=== PATIENT | female | born 1990 | race Caucasian/White ===

== ENCOUNTER 2016-07-15 18:27 | Inpatient (IN) | payer OTHER, MEDICAID ==
[~2016-07-15] VITALS: Ht 157.5 cm; Wt 62.1 kg
[~2016-07-15 18:27] MED LIST: BUPR1FIL3 SL; CEPH-512 PO; GABA300C PO; HYDR-3605 PO; LAMO100T PO; MTH4T PO; NICO1PAT5 TOPICAL; NPR500T PO; ROPI1TAB3 PO
--- NOTE | 2016-07-15 18:28 | ED.REPORT ---
HPI-Chest Pain Under 40 Date of Service Jul 15, 2016 ED Provider: History of Present Illness: sick for a week started with feeling tired. not significant nausea or vomiting. no primary care. ibuprofen unknown time or dose not taking suboxone. last use this am heroin injection, denies cocaine. has no place to stay. reports breathing issues. Nursing Notes Stated Complaint: CHEST PAIN,SOB Chief Complaint: Chest Pain Nursing Notes Reviewed: Yes Allergies: Coded Allergies: No Known Allergies (Verified Allergy, Unknown, 03/06/16) Scheduled Buprenorphine HCl/Naloxone HCl (Suboxone 8 mg-2 mg Sl Film) 1 Each Film 1 EACH SL DAILY Cephalexin (Keflex) 500 Mg Capsule 500 MG PO QID Gabapentin (Neurontin) 300 Mg Capsule 600 MG PO TID Lamotrigine (Lamictal) 100 Mg Tablet 200 MG PO BID Methylprednisolone (Medrol) 21 Tab/Pkg Tablet 1 TAB PO UD Follow package instructions Nicotine 14 mg/24 hr Patch (Nicotine 14 mg/24 hr Patch) 1 Each Patch.td24 1 PATCH TOPICAL Q24H Ropinirole (Ropinirole) 1 Mg Tablet 1 MG PO HS Scheduled PRN HydrOXYzine HCl (HydrOXYzine HCl) 10 Mg Tablet 25 MG PO TID PRN PRN For Itching Naproxen (Naproxen) 500 Mg Tab 500 MG PO BID PRN PRN For Pain General Time Seen by MD: 18:28 Chief Complaint Chest pain, Shortness of breath Hx Obtained From: Patient Sudden in Onset?: No Severity: Current: Pain level 10 out of 10 Risk Factors )( CAD Risk Stratification Amphetamine Risk factors reviewed Past Medical History Past Medical History Notes: P:1, RH negative Past Medical History Seizures Reports: Asthma Past Surgical History none reported Family History noncontributory Smoking History Current Every Day Smoker Social History last used heroin this am 07/15/2016 Alcohol Use: Denies alcohol use Drug Use: IV drugs Other Social History: Local resident Occupation homeless at present no work or school at this time 07/15/2016 Ambulatory Status Independent Review of Systems Basic Review of Systems Eyes: Vision NL, No discharge ENT: Hearing NL, No pain, No nasal congestion, No pharyngeal pain : No dysuria, No frequency Hematologic: No bleeding, No bruising Endocrine: No cold intolerance, No heat intolerance, No weight gain, No weight loss Allergy / Immune: No allergy Physical Exam Initial Vital Signs Vital Signs (First) Date Time Temp Pulse Resp B/P Pulse Ox O2 Delivery O2 Flow Rate FiO2 07/15/16 18:29 38.4 132 24 106/55 100 Room Air Initial VS: Reviewed, Vital signs abnormal Head / Eyes: Atraumatic, Normocephalic, PERRL ENT: Mucous membranes moist, Conjunctiva normal, No scleral icterus Neck: Supple, Non-tender, Full range of motion Abdomen / GI: Soft, Non-tender, No guarding, No rebound, No distention Back: No CVA tenderness Lymphatic: No lymphadenopathy Extremities: Vascular intact, Neuro intact, No swelling, No tenderness Skin: Warm, Dry, No cyanosis Neurologic: Alert, Oriented, Nonfocal Psychiatric: Mood/affect normal, Behavior normal, Normal thought content General/Constitutional: Awake Distress / Hydration: Positive: Distress moderate hypersensitive to light touch Diminished Breath Sounds: Positive: Decreased bilateral (at bases) no wheezing Heart Rate / Rhythm: Positive: Tachycardia Interpretation & Diagnostics Lab Results Interpretation Result Diagram: 07/15/16195607/15/161956 Test 07/15/16 19:57 07/15/16 21:01 White Blood Count 18.7th/mm3 (3.8-10.1) Red Blood Count 3.51mil/mm3 (3.90-5.20) Hemoglobin 10.1g/dL (12.0-15.6) Hematocrit 30.7% (35.0-46.0) Mean Corpuscular Volume 87.5fL (81-100) Mean Corpuscular Hemoglobin 28.8pg (27.0-35.0) Mean Corpuscular Hemoglobin Concent 32.9% (32.0-37.0) Red Cell Distribution Width 12.7% (12.3-15.4) Platelet Count 134bil/L (150-400) Neutrophils (%) (Auto) 82.9% (40-74) Lymphocytes (%) (Auto) 7.9% (14-46) Monocytes (%) (Auto) 6.3% (4-12) Eosinophils (%) (Auto) 0% (0-5) Basophils (%) (Auto) 0.2% (0-3) D-Dimer 11.5mg/L (<0.50) Sodium Level 128mEq/L (134-144) Potassium Level 4.1mEq/L (3.5-5.2) Chloride Level 90mEq/L (97-108) Carbon Dioxide Level 23mmol/L (18-29) Blood Urea Nitrogen 36mg/dL (6-20) Creatinine 2.11mg/dL (0.57-1.00) Estimat Glomerular Filtration Rate 42mL/min (>59) Glucose Level 102mg/dL (60-99) Lactic Acid Level 1.5mmol/L (0.4-2.0) Calcium Level 8.5mg/dL (8.5-10.1) Magnesium Level 2.1mg/dL (1.6-2.6) Total Bilirubin 0.6mg/dL (0.0-1.2) Aspartate Amino Transf (AST/SGOT) 32U/L (0-50) Alanine Aminotransferase (ALT/SGPT) 15U/L (0-32) Alkaline Phosphatase 108U/L (25-150) Total Protein 7.3g/dL (6.4-8.4) Albumin 2.6g/dL (3.4-5.0) Urine Color Yellow (YELLOW) Urine Appearance Cloudy (CLEAR,HAZY) Urine pH 5.5 (5.0-8.0) Urine Specific Sylvester 1.015 (1.003-1.035) Urine Protein 30mg/dL (NEG,TRACE) Urine Glucose (UA) Negativemg/dL (NEGATIVE) Urine Ketones Negativemg/dL (NEGATIVE) Urine Occult Blood Large (NEGATIVE) Urine Nitrite Negative (NEGATIVE) Urine Bilirubin Negative (NEGATIVE) Urine Urobilinogen Normalmg/dL (NORMAL) Urine Leukocyte Esterase Large (NEGATIVE) Urine RBC 3-10/hpf (0-2) Urine WBC 6-10/hpf (0-5) Urine Epithelial Cells None/hpf (NONE-MOD) Urine Crystals None seen (NONE SEEN) Urine Bacteria Few/hpf (NONE-FEW) Urine Hyaline Casts None/lpf (NONE) Urine Granular Casts None seen (NONE SEEN) Urine Waxy Casts None seen (NONE SEEN) Urine Red Blood Cell Casts None seen (NONE SEEN) Urine White Blood Cell Casts None seen (NONE SEEN) Urine Mucus Present (None Seen) Urine Trichomonas None seen (NONE SEEN) Urine Yeast None (NONE SEEN) Urinalysis Comment None Urine Culture Reflexed Indicated Lab Results Interpretation: u tox positive for opiates, meth and amph. Re-Eval/Medical Decision Med Decision/Clinical Course discussed with Dr. Kirkland. Will need IV, fluids, antiviotics and admission. Patient agrees to stay Discharge & Departure Primary Impression: Pneumonia Additional Impression: Urinary tract infection Hematuria presence: with hematuria Disposition: ADMITTED TO HOSPITAL Referrals: Taco Flores MD (PCP) EDSupervising Provider for APC: Kwame Kirkland MD copies to: Taco Flores MD, Sue ARNP Jul 15, 2016 18:28
[2016-07-15 18:29] VITALS: BP 106/55; PULSE 132; RESP 24; O2SAT 100
[2016-07-15] MEDS ORDERED: 0.9% Sodium Chloride 1,000 ML IV ONE (18:40)
--- NOTE | 2016-07-15 19:51 | DRSVH ---
PROCEDURE: X-RAY CHEST, TWO VIEWS ([id number]) INDICATIONS: fever sob TECHNIQUE: 2 views of the chest were acquired. COMPARISON: [facility], CR, XR CHEST 1VW (PORTABLE), 03/06/2016, 13:22. FINDINGS: Surgical changes and devices: None. Lungs and pleura: Bilateral lower lobe infiltrates consistent with pneumonia. No pleural effusions or pneumothorax. Mediastinum: Mediastinal contours are normal. Heart size is normal. Bones and chest wall: No suspicious bony abnormalities. Soft tissues appear unremarkable. IMPRESSION: Bilateral lower lobe pneumonia. Dictated by: Sharon Ospina M.D. on 07/15/2016 at 19:50 Approved by: Sharon Ospina M.D. on 07/15/2016 at 19:50
[2016-07-15] MEDS ORDERED: HYDROcodone-APAP 5-325 mg Tablet PO ONE (20:10)
[2016-07-15 20:28] LABS: BASOPHILS % (AUTO) 0.2 % (0-3)
[2016-07-15 20:31] LABS: EOSINOPHILS % (AUTO) 0 % (0-5); MONOCYTES % (AUTO) 6.3 % (4-12); Mean Corpuscular Hemoglobin 28.8 pg (27.0-35.0); Mean Corpuscular Volume 87.5 fL (81-100); NEUTROPHILS % (AUTO) 82.9 % (40-74); Platelet Count 134 bil/L (150-400)
[2016-07-15 20:37] LABS: Magnesium 2.1 mg/dL (1.6-2.6)
[2016-07-15] MEDS ORDERED: 0.9% Sodium Chloride 1,000 ML IV STA (21:16)
[2016-07-15 21:18] LABS: APPEARANCE,URINE CLOUDY (CLEAR,HAZY); COLOR,URINE YELLOW (YELLOW)
[2016-07-15 21:19] LABS: OCCULT BLOOD,URINE LARGE (NEGATIVE); PH,URINE 5.5 (5.0-8.0); UROBILINOGEN,URINE NORMAL (NORMAL)
[2016-07-15] MEDS ORDERED: cefTRIAXone Inj 1,000 MG in IV Premix 1 EACH IV ONE (21:20)
[2016-07-15 22:38] VITALS: BP_SYST 96; BP_DIAS 36; BP_DIAS 39; PULSE 104; RESP 20; O2SAT 96
[2016-07-15 22:56] VITALS: BP 95/48; PULSE 102; RESP 20; O2SAT 97
[2016-07-15 23:22] VITALS: BP 91/44; PULSE 101; RESP 20; O2SAT 96
[2016-07-15] MEDS ORDERED: Alum-Mag Hydrox-Simeth 30 mL Suspension PO PRN (23:30)
[2016-07-15] MEDS ORDERED: Polyethylene Glycol (PEG) 17 Gm Powder PO PRN (23:30)
[2016-07-15 23:59] VITALS: BP 91/44; PULSE 101; RESP 20; O2SAT 96
[2016-07-16] VITALS (10 sets, daily range): BP systolic 75–115; BP diastolic 45–82; PULSE 73–151; RESP 16–30; O2SAT 95–100
[2016-07-16] MEDS ORDERED: 0.9% Sodium Chloride 1,000 ML IV ONE ×2 (00:30→03:40)
[2016-07-16] MEDS: Heparin 5,000 Unit/mL Inj SUBQ SCH ×4 (00:39→23:47)
--- NOTE | 2016-07-16 00:58 | NUR ---
Admit Note Pt. arrived on floor at 0005. Pt. was diaphoretic, and moaning in pain during transfer from stretcher to bed. Pt. has a right EJ peripheral IV that is intact and patent. Pt. refused full skin assessment. Belongings locked in closet, because of hx of IV drug abuse. Pt. is being noncompliant with admit questions so far. Will try to continue with admit. Pt's BP was 84/51 upon arrival. paged. MD ordered a IV fluid bolus, which is being given right now. Also, talked with resident MD, and asked for something for pain. As pt. was complaining of pain in back and abdomen area. MD ordered PO tylenol. Will continue to monitor. Addendum: 07/16/16 at 0102 by STEVE LUCAS RN Tele also placed on pt. during arrival.
--- NOTE | 2016-07-16 01:04 | PCM.HPMED ---
Subjective Date of Service Jul 16, 2016 Primary Provider: Admitting Physician: Ese Amanda MD Primary Care Physician: Taco Flores MD Attending Physician: Ese Amanda MD Chief Complaint: Shortness of breath, chest pain History of Present Illness: Patient is a 25-year-old IV heroin and meth using female presenting with shortness of breath and chest pain. She is a vague historian and currently not in the mood to interact or elaborate, but she reports onset of shortness of breath about two days ago with accompanying chest pain. She reports the chest pain is noticeable with breathing and involves her left shoulder. At time of visit, she reports her chest pain is improved. She currently is very fatigued but otherwise denies chills, cough, nausea, emesis, abdominal pain, dysuria. She reports actively using IV heroin and occasionally IV meth. She reports last using IV heroin some time this morning. She is currently homeless and staying at homes of various friends. In the ED, vitals: 38.4C, RR 102, RR 20 satting 97% on room air, BP 95/48. Notable labs: WBC 18.7, Na 128, BUN 36, creatinine 2.11. D-dimer 11.5. UA with large leukocyte esterase, WBC 6-10 and few bacteria. Chest x-ray with bilateral lower lobe infiltrates. Urine toxicology screen positive for meth, amphetamines and opiates. Patient received 2L NS in the ED and started on ceftriaxone and azithromycin. Review of Systems: A comprehensive review of systems was conducted with the patient and found to be negative except as above in the History of Present Illness. Allergies Coded Allergies: sulfamethoxazole (Verified Allergy, Intermediate, 07/16/16) serum sickness with arthritis trimethoprim (Verified Allergy, Intermediate, 07/16/16) serum sickness with arthritis No Known Allergies (Verified Allergy, Unknown, 03/06/16) Home Medications None reported PMH Seizures Asthma IV substance abuse (heroin and meth) History of recurrent UTIs and pyelonephritis . Surgical History None reported Family History Mother is alive and well Father at [id number] from lung cancer Social History Occupation: Unemployed Hx Alcohol Use: No Hx Substance Use: Yes (heroin, meth, marijuana) Smoking Status: Current Every Day Smoker Living Arrangement: Homeless Exam Vital Signs Vital Sign - Last Date Time Temp Pulse Resp B/P Pulse Ox O2 Delivery O2 Flow Rate FiO2 07/16/16 00:11 36.2 88 18 84/51 99 Room Air Intake and Output 07/15/16 07/15/16 07/16/16 Cumulative From/Thru 15:00 23:00 07:00 07/15/16 18:29 - 07/16/16 00:13 Intake Total 2000 ml 2000 ml Balance 2000 ml 2000 ml Intake IV Total 2000 ml 2000 ml # Voids 1 1 Exam General: Mild distress, well-developed, well-nourished, not interactive, diaphoretic HEENT: Normocephalic, atraumatic. External ears without defect. Pupils equal, round, and reactive to light and accommodation. Anicteric sclerae, moist conjunctivae, and no lid lag. Oropharynx moist mucosa. Neck: Right external jugular IV. Supple. No jugular venous distension. No bruits. No lymphadenopathy or thyromegaly. Cardiovascular: Regular rate and rhythm with no murmurs, rubs, or gallops appreciated Pulmonary: Clear anteriorly. Unable to auscultate posterior given pain from movement at site of external jugular IV. Normal respiratory effort with no use of accessory muscles. Abdomen: Bowel tones present. Soft, nontender, nondistended. No hepatosplenomegaly or masses appreciated. Extremities: No clubbing, cyanosis, edema, or lymphadenopathy appreciated. Skin: Perspiring. Multiple sites of ecchymosis on arms likely from IVDU. Puncture sites at several spots on her feet. Neurological: Cranial nerves grossly intact. Psychiatric: Alert and oriented to person, place, and time. Lab and Diagnostics Result Diagram: 07/15/16195607/15/161956 X-Rays, CTs and MRIs Date of Service: 07/15/161839 PROCEDURE: X-RAY CHEST, TWO VIEWS ([id number]) INDICATIONS: fever sob TECHNIQUE: 2 views of the chest were acquired. COMPARISON: [facility], CR, XR CHEST 1VW (PORTABLE), 03/06/2016, 13: 22. FINDINGS: Surgical changes and devices: None. Lungs and pleura: Bilateral lower lobe infiltrates consistent with pneumonia. No pleural effusions or pneumothorax. Mediastinum: Mediastinal contours are normal. Heart size is normal. Bones and chest wall: No suspicious bony abnormalities. Soft tissues appear unremarkable. IMPRESSION: Bilateral lower lobe pneumonia. Dictated by: Sharon Ospina M.D. on 07/15/2016 at 19:50 Approved by: Sharon Ospina M.D. on 07/15/2016 at 19:50 Assessment & Plan Patient is a 25-year-old IV heroin and meth using female presenting with shortness of breath and chest pain and admitted for severe sepsis with pneumonia and urinary tract infection: 1. Severe sepsis. Present on admission. Active -Meets criteria with temp (38.4), HR (132) with organ dysfunction as evidence by creatinine 2.11 and MAP<65. Likely pulmonary or source, possible bacteremia given IVDU -Patient received 2L NS in ED. Ordered another liter NS. Maintain MAP>60 -Pending: blood cultures, MRSA screen -Lactic acid 1.5 -Ceftriaxone and azithromycin in ED. Will continue ceftriaxone and start linezolid for MRSA coverage given patient's renal function. Narrow antibiotic spectrum with culture results 2. Bibasilar pneumonia. Acute. Present on admission. Active -Chest x-ray suggestive of bilateral lower lobe pneumonia -Pending studies: procalcitonin, Legionella and strep pneumo ur Ag, Respiratory virus PCR -Antibiotics as above 3. Acute kidney injury. Present on admission. Active -Creatinine 2.11 -Likely secondary to poor oral intake, ischemic ATN -Patient undergoing fluid resuscitation -Avoid nephrotoxins -Continue to monitor with CMP 4. Urinary tract infection. Acute. Present on admission. Active -UA with leukocyte esterase, pyuria, bacteria -Antibiotics as above 5. Elevated D-dimer. Present on admission. Active -D dimer 11.5. Possibly elevated since its an acute phase reactant -Patient satting high 90s on room air; low suspicion of PE -Unable to perform CT chest angio given renal function; consider VQ scan or duplex of lower extremities 6. Substance abuse. Chronic. Present on admission. Active -Currently uses IV meth and heroin. Has been on Suboxone in the past -Social work referral Patient Status: Patient is admitted under inpatient status with expected length of stay greater than 2 midnights due to severity of presenting symptoms, risk of adverse event, and complexity of treatment plan. GI Prophylaxis: Not indicated VTE Prophylaxis: Sub-Q Heparin (Unfractionated) Resuscitation Status: CPR: Attempt Resuscitation Attending Statement Pt seen and examined by myself and agree with above plan. Mazin Rivera DO Jul 16, 2016 01:04 Ese Amanda MD Jul 17, 2016 06:05
[2016-07-16] MEDS: HYDROcodone-APAP 5-325 mg Tablet PO PRN (01:50)
[2016-07-16] MEDS ORDERED: Linezolid Inj 600 MG in IV Premix 1 EACH IV SCH (04:40)
[2016-07-16] MEDS: Norepineph 8,000 mCg/250 mL NS 8,000 MCG in IV Premix 1 EACH IV SCH (06:06)
--- NOTE | 2016-07-16 06:15 | NUR ---
Pt's Status Pt's BP still has not risen since 2 liters of IV fluids boluses given. MD aware. MD has ordered pt. to go up to CCU where she can possibly get pressers. Pt. is still diaphoretic, and a little bit flushed in face. Will continue to monitor until report given.
--- NOTE | 2016-07-16 06:45 | NUR ---
Transfer to CCU Pt. is off of this floor, and has been transferred to CCU nurse. Bedside report given to Lyly SESAY. Belongings taken with, and relocked in closet in that room.
--- NOTE | 2016-07-16 07:00 | NUR ---
Pt transferred to CCU Pt transferred to CCU from [facility] for hypotension. A&O x 3. Sensitive to any touch at all. c/o 10/10 L shoulder/chest pain and will cry out with minimal touch. Tele SR 80s. SpO2 mid 90s on RA. Per report, pt has received 5L fluids in ER/OSC for BP management with no avail. BP on admit 80s/48s. Pt denies SOB, n/v/d or abdominal pain. Oriented to room and call light. Pt tucked in to room and settled for next shift.
[2016-07-16] MEDS ORDERED: Sodium Chloride LOK Flush 10 mL Syringe IVFLUSH PRN ×2 (07:55)
[2016-07-16 08:05] LABS: BASOPHILS % (AUTO) 0.5 % (0-3); EOSINOPHILS % (AUTO) 0.3 % (0-5); MONOCYTES % (AUTO) 6.2 % (4-12); Mean Corpuscular Hemoglobin 28.6 pg (27.0-35.0); Mean Corpuscular Volume 87.3 fL (81-100); NEUTROPHILS % (AUTO) 79.7 % (40-74); Platelet Count 95 bil/L (150-400)
[2016-07-16] MEDS ORDERED: LAMO200T2 PO (09:24)
[2016-07-16] MEDS ORDERED: HYDR-656 PO ×2 (09:27)
[2016-07-16] MEDS ORDERED: ONDA-53 PO (09:27)
[2016-07-16] MEDS ORDERED: CLON0.3T PO (09:27)
[2016-07-16] MEDS: 0.9% Sodium Chloride 1,000 ML IV SCH ×7 (09:55→21:15)
--- NOTE | 2016-07-16 10:25 | NUR ---
NUTRITION ASSESSMENT: ASSESS:25 YO female admitted with shortness of breath, chest pain, PRISCILA, pneumonia, and UTI. She reports the chest pain is noticeable with breathing and involves her left shoulder. She reports actively using IV heroin and occasionally IV meth. She is currently homeless and staying at homes of various friends. Of note, the patient has lost 8.58 kg x 4 months, 1 week = 12.58% = severe protein calorie malnutrition. Her social issues are significant. PMHx:Homelessness, IV heroin and meth use, seizure disorder, UTI's, pyelonephritis, smoking, gonorrhea. DIET:General. PO intake not yet reported. LABS: Reviewed. BUN 33, Cr 1.78, Glu 145, Ca 6.6, Alb 1.7. MEDICATIONS: Reviewed. NUTRITION FOCUSED PHYSICAL ASSESSMENT: GI symptoms / stool: No stool reported.Hemanth: 17 Skin Integrity: No issues reported. ANTHROPOMETRICS: Current Wt: 59.6 kgBMI: 24.0 kg/m2. IBW: ESTIMATED NEEDS (MALNUTRITION, CCU, PRISCILA): Calories: 1490 - 1788 kcal (25 - 30 kcal / kg BW) Protein: 48 - 60 g protein (0.8 - 1.0 g / kg BW) NUTRITION DIAGNOSIS: 1)Severe protein calorie malnutrition likely related to lack of or limited access to food, homelessness, polysubstance abuse, as evidenced by 12.58% weight loss x 4 months, 1 week. 2)Altered nutrition-related labs related to acute kidney injury, as evidenced by elevated BUN, creatinine. INTERVENTION: 1) Will add Suplena renal supplement to trays to increase calories and protein. 2) Recommend Case Management assist with housing options for this at risk patient. MONITOR/EVALUATE: Diet / supplement tolerance, PO intake, labs, GI/nutrition status. Follow up per high nutrition risk guidelines.
[2016-07-16] MEDS ORDERED: Vancomycin Dose per Pharmacist XX SCH (11:00)
--- NOTE | 2016-07-16 11:04 | DRSVH ---
PROCEDURE: X-RAY PICC LINE PLACEMENT BY NURSE ([id number]) INDICATIONS: access for pressors COMPARISON: [facility], CR, XR CHEST 1VW (PORTABLE), 03/06/2016, 13:22. [facility], CR, XR CHEST 2VW, 07/15/2016, 18:50. FINDINGS: PICC was placed by the intravenous therapy team from the right side. Fluoroscopic spot fi lm demonstrates tip projected over the right atrium. IMPRESSION: Tip of PICC projected over the lower right atrium. Sushma Corrales (IV therapy nurse) given results at 1100 hrs. 07/16/2016. Dictated by: Delon Pelayo [facility] Interpreted: Airam Salguero MD on 07/16/2016 at 11:03 Transcribed by: CHRISTIAN on 07/16/2016 at 11:03 Approved by: Airam Salguero MD, PhD on 07/16/2016 at 16:13
[2016-07-16] MEDS: HYDROmorphone 0.5 mg/0.5 mL iSecure Syringe IVPUSH PRN ×6 (11:14→23:48)
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
--- NOTE | 2016-07-16 12:47 | PCM.PNMED ---
Subjective Date of Service Jul 16, 2016 Subjective Severe left shoulder pain as well as pain over the left aspect of the clavicle at the sternum. No fevers or chills. She denies any cough. She is dyspneic. No leg pain or swelling. She injects primarily in her antecubital region of the right arm greater than the left. The left shoulder increases in terms of pain with any movement or palpation. She denies nausea vomiting or diarrhea. She is very anxious Exam Vital Signs Vital Sign - Last Date Time Temp Pulse Resp B/P Pulse Ox O2 Delivery O2 Flow Rate FiO2 07/16/16 11:55 36.6 118 30 105/82 97 Room Air Intake and Output 07/15/16 07/15/16 07/16/16 Cumulative From/Thru 15:00 23:00 07:00 07/15/16 18:29 - 07/16/16 06:43 Intake Total 2000 ml 2334 ml 4334 ml Output Total 0 ml 0 ml Balance 2000 ml 2334 ml 4334 ml Intake Oral 200 ml 200 ml IV Total 2000 ml 2134 ml 4134 ml Output Urine Total 0 ml 0 ml # Voids 1 1 Exam Very anxious. She is otherwise alert and oriented. Speech. Normal skull. Anicteric sclera. Lungs are clear, normal effort. Heart is regular without murmur gallop or rub Abdomen soft nondistended no organomegaly Extremities are free of edema. Radial and pedal pulses. She does have track hannon in the antecubital areas bilaterally. She is somewhat swollen and tender at the sternal junction on the left medial aspect of the clavicle. She also has a left shoulder pain with any passive range of motion. IVs and Medications Medications Reviewed: Medications were reviewed in detail Lab and Diagnostics Result Diagram: 07/16/16 0807/16/16 0801 X-Rays, CTs and MRIs Date of Service: 07/15/16 1840 PROCEDURE: X-RAY CHEST, TWO VIEWS ([id number]) INDICATIONS: fever sob TECHNIQUE: 2 views of the chest were acquired. COMPARISON: [facility], CR, XR CHEST 1VW (PORTABLE), 03/06/2016, 13: 22. FINDINGS: Surgical changes and devices: None. Lungs and pleura: Bilateral lower lobe infiltrates consistent with pneumonia. No pleural effusions or pneumothorax. Mediastinum: Mediastinal contours are normal. Heart size is normal. Bones and chest wall: No suspicious bony abnormalities. Soft tissues appear unremarkable. IMPRESSION: Bilateral lower lobe pneumonia. Dictated by: Sharon Ospina M.D. on 07/15/2016 at 19:50 Approved by: Sharon Ospina M.D. on 07/15/2016 at 19:50 Assessment & Plan Patient is a 25-year-old IV heroin and meth using female presenting with shortness of breath and chest pain and admitted for severe sepsis with pneumonia and urinary tract infection: 1. Severe sepsis. Present on admission. Active. -Meets criteria with temp (38.4), HR (132) with organ dysfunction as evidence by creatinine 2.11 and MAP<65. Likely pulmonary or source, possible bacteremia given IVDU -Patient received 2L NS in ED. Ordered another liter NS. Maintain MAP>60 -Pending: blood cultures, MRSA screen -Lactic acid 1.5 -Ceftriaxone and azithromycin in ED. Will continue ceftriaxone and start linezolid for MRSA coverage given patient's renal function. Narrow antibiotic spectrum with culture results. Add vancomycin at this point and stop the nafcillin. 2. Bibasilar pneumonia. Acute. Present on admission. Active -Chest x-ray suggestive of bilateral lower lobe pneumonia -Pending studies: procalcitonin, Legionella and strep pneumo ur Ag, Respiratory virus PCR -Antibiotics as above 3. Acute kidney injury. Present on admission. Active -Creatinine 2.11 -Likely secondary to poor oral intake, ischemic ATN -Patient undergoing fluid resuscitation, she is on 5 L and will continue. She has improving renal indices but still has no urine output. We will try to avoid pressors. -Avoid nephrotoxins -Continue to monitor with CMP 4. Urinary tract infection. Acute. Present on admission. Active -UA with leukocyte esterase, pyuria, bacteria -Antibiotics as above, follow cultures 5. Elevated D-dimer. Present on admission. Active -D dimer 11.5. Possibly elevated since its an acute phase reactant -Patient satting high 90s on room air; low suspicion of PE -Unable to perform CT chest angio given renal function; consider VQ scan or duplex of lower extremities . Her renal function is improving however at this point will pursue duplex ultrasound the legs and forego CT angiogram. 6. Substance abuse. Chronic. Present on admission. Active -Currently uses IV meth and heroin. Has been on Suboxone in the past -Social work referral 7. Probable staph aureus septicemia. 2 cultures are positive. We will order to additional cultures as well as infectious disease consultation and 2-D echo. The patient also has left shoulder and sternal pain consistent with probable or possible septic shoulder and/or septic osteoarthritis. Dr. Lee has ordered an MRI of the left shoulder. We will image the sternum and the next day or so with CAT scan after creatinine is further improved. Patient Status: Patient is admitted under inpatient status with expected length of stay greater than 2 midnights due to severity of presenting symptoms, risk of adverse event, and complexity of treatment plan. GI Prophylaxis: Not indicated VTE Prophylaxis: Sub-Q Heparin (Unfractionated) Resuscitation Status: CPR: Attempt Resuscitation Time spent 30 minutes Mitul Barrera MD Jul 16, 2016 12:47
--- NOTE | 2016-07-16 13:12 | DRSVH ---
PROCEDURE: X-RAY CHEST ONE VIEW, PORTABLE ([id number]) INDICATIONS: Catheter tip placement TECHNIQUE: One view of the chest was acquired. COMPARISON: [facility], CR, XR CHEST 2VW, 07/15/2016, 18:50. [facility], CR , XR CHEST 1VW (PORTABLE), 03/06/2016, 13:22. FINDINGS: Surgical changes and devices: PICC line projects in the distal SVC via right-sided approach. Lungs and pleura: No pleural effusions or pneumothorax. Patchy opacities in the lung bases bilateral ly compatible with pneumonia are stable compared to prior examination. Mediastinum: Mediastinal contours appear normal. Heart size is normal. Bones and chest wall: No suspicious bony lesions. Overlying soft tissues appear unremarkable. IMPRESSION: Tip of PICC line projects the distal SVC. Dictated by: Airam Salguero MD, PhD on 07/16/2016 at 13:10 Approved by: Airam Salguero MD, PhD on 07/16/2016 at 13:10
--- NOTE | 2016-07-16 14:36 | DRSVH ---
PROCEDURE: US VENOUS LEG DUPLEX BILATERAL INDICATIONS: dyspnea TECHNIQUE: Real-time imaging, as well as color and pulse Doppler interrogation, were performed of the deep veins of both legs from the inguinal ligament to the popliteal fossa. COMPARISON: [facility], US, US VENOUS LEG DPLX BILAT, 03/07/2016, 12:29. FINDINGS: The deep veins are normally compressible, and free of intraluminal thrombus. Color and pu lse Doppler demonstrate normal phasic intravascular flow. There is normal augmentation response to d istal compression maneuver. IMPRESSION: No deep venous thrombosis identified within either the left or right lower extremities. Dictated by: Delon Pelayo [facility] Interpreted: Sharon Ospina MD on 07/16/2016 at 14:35 Transcribed by: NAVA on 07/16/2016 at 14:35 Approved by: Sharon Ospina M.D. on 07/16/2016 at 16:59
--- NOTE | 2016-07-16 15:25 | DRSVH ---
PROCEDURE: MRI SHOULDER LEFT WITHOUT CONTRAST ([id number]) INDICATIONS: septic L shoulder TECHNIQUE: Noncontrast oblique coronal T2 fast spin echo with fat saturation, oblique sagittal T1 spin echo and T2 fast spin echo with fat saturation, axial T1 spin echo and T2 fast spin echo with fat saturation t hrough the shoulder. COMPARISON: None. FINDINGS: Image quality: Image quality severely limited secondary to patient motion. Rotator cuff: The supraspinatus, infraspinatus, and subscapularis tendons appear intact throughout. No rotator cuff muscle atrophy on sagittal images. Bones and bursae: No bone marrow contusions or fractures. No definite bone marrow edema. No osseous erosive changes identified. No acromioclavicular joint degeneration. The acromion demonstrates conve ntional anatomy, without an os acromiale. No pathologic subacromial-subdeltoid or subcoracoid bursal fluid is present. Capsule and soft tissues: In the absence of intra-articular contrast, the labrum and glenohumeral li gaments appear intact. The long head of the biceps tendon demonstrates normal location and morpholog y. The rotator interval appears normal, without fibrosis. The coracohumeral ligament is normal in t hickness. Trace glenohumeral joint effusion is noted. Increased T2 signal noted in the subcutaneous f at of the left shoulder juxta-articular soft tissues compatible with edema. IMPRESSION: 1. Image quality severely limited by patient motion artifact. 2. No definite evidence of osteomyelitis. 3. Trace, nonspecific glenohumeral joint effusion. 3. Nonspecific subcutaneous edema involving the left shoulder. Infectious cellulitis cannot be exclud ed. No definite abscess identified within limitations of the study by motion artifact. Dictated by: Airam Salguero MD, PhD on 07/16/2016 at 15:23 Approved by: Airam Salguero MD, PhD on 07/16/2016 at 15:23
[2016-07-16] MEDS: Ceftaroline Inj 600 MG in Dextrose 5% 250 ML IV SCH ×2 (15:27→23:47)
[2016-07-16] MEDS ORDERED: DAPTOmycin Inj 500 MG in 0.9% Sodium Chloride 50 ML IV SCH (18:25)
--- NOTE | 2016-07-16 18:44 | NUR ---
Blood culture positive results were given to MD's as received throughout the day. Dr Lee and Dr. Barrera aware of blood culture results.
--- NOTE | 2016-07-16 19:18 | NUR ---
P: Resp, hemodynamics, Nutrition, Social I,E: Pt has been on room air most of the day except for a few hours this afternoon when her HR was elevated and temp was up, pt was sleeping and her sats dropped to 91%. I placed NC O2 on and her sats were up to 97%. Currently pt has removed her O2 and her sats are still holding at 97%. Pt was hypotensive this am sys in the 80's, NS was infusing at 500cc/hr and she did respond to this and her BP was good, 110's to 120's until this afternoon when while she was sleeping, after the MRI her sys dropped again to the 80s'. NS was still at 500cc/hr (this was discussed a couple of times today with Dr. Barrera who requested to continue saline at 500cc/hr) I also updated Dr. Barrera throughout the day r.e. pt's HR, BP, pain control and temp. Pt did have a temp of 39.4 at 1600hrs. Pt was diaphoretic and complaining of being hot. Pt was seen by ortho this evening and he assessed her shoulder. He did not think she needed surgery and OK'd diet and fluids. Pt has voided 900cc of urine this shift. At this time her HR is back in the 100's and BP 110's sys. Pt has poor coping skills and has a hypersensitivity to pain. She has been able to rest and sleep on and off today, but when disturbed complains of severe pain in her shoulder. The dilaudid worked well for pain assessing with the FELDT scale. Pt remained NPO throughout most of the day, but has taken 2 cups of water this evening. I have received no calls from friends or family regarding pt today. She states she was at a friends house the past several days and no one was there to help her so she hasn't had anything to eat or drink for days.
--- NOTE | 2016-07-16 19:25 | PCM.CONORT ---
Subjective Date of Surgery: Jul 16, 2016 Surgeon Admitting Provider:Ese Amanda MD Attending Provider:Ese Amanda MD Primary Care Physician:Taco Flores MD Infectious Disease: Abel Lee M.D. Orthopedic Surgery: Cristian Espianl M.D. Reason for Consultation: 25-year-old [id number] woman who is an active IV drug user and previous history of infection presents with a three-day history of left shoulder girdle pain and limited motion secondary in addition to pneumonia and infection. The patient denies known history of trauma or previous shoulder symptoms although she has been quite immobile secondary to her recent infections , line for prolonged periods of time possibly on her left side. The patient was admitted to the hospitalist service 07/15/2016 with infectious disease consultation for treatment of her pneumonia, infections and septicemia. Admission WBC was 18.7 and the patient was started on IV antibiotics which now includes ceftriaxone and ceftaroline for treatment of staph infection. An orthopedic consultation has been requested for further evaluation of her left shoulder and assistance in ruling out a septic arthritis or osteomyelitis. The patient is not an ideal historian or particularly cooperative secondary to her discomfort. An MRI of the patient's left shoulder has been appropriately obtained. Allergy Allergies: Coded Allergies: sulfamethoxazole (Verified Allergy, Intermediate, 07/16/16) serum sickness with arthritis trimethoprim (Verified Allergy, Intermediate, 07/16/16) serum sickness with arthritis No Known Allergies (Verified Allergy, Unknown, 03/06/16) Medications Clonidine (Clonidine) 0.3 Mg Tablet 1-2 TAB PO TID PRN PRN For Anxiety (Reported ) Last Taken: Unknown Dose on Unknown Date & Time Gabapentin (Neurontin) 300 Mg Capsule 600 MG PO TID Prescribed by: YENNI ROGEL MD Last Taken: Unknown Dose on Unknown Date & Time Lamotrigine (Lamotrigine) 200 Mg Tablet 200 MG PO BID (Reported) Last Taken: Unknown Dose on Unknown Date & Time Ondansetron (Ondansetron) 4 Mg Tablet 4 MG PO TID PRN PRN For Nausea (Reported) Last Taken: Unknown Dose on Unknown Date & Time Ropinirole (Ropinirole) 1 Mg Tablet 1 MG PO HS (Reported) Last Taken: Unknown Dose on Unknown Date & Time hydrOXYzine Hcl ( HydrOXYzine Hcl) 25 Mg Tablet 25 MG PO BID (Reported) 1 tablet in the morning and at noon Last Taken: Unknown Dose on Unknown Date & Time hydrOXYzine Hcl ( HydrOXYzine Hcl) 25 Mg Tablet 50 MG PO HS (Reported) Last Taken: Unknown Dose on Unknown Date & Time Discontinued Medications Buprenorphine HCl/Naloxone HCl (Suboxone 8 mg-2 mg Sl Film) 1 Each Film 1 EACH SL DAILY (Reported) Cephalexin (Keflex) 500 Mg Capsule 500 MG PO QID Prescribed by: YENNI ROGEL MD HydrOXYzine HCl (HydrOXYzine HCl) 10 Mg Tablet 25 MG PO TID PRN PRN For Itching (Reported) Lamotrigine (Lamictal) 100 Mg Tablet 200 MG PO BID Prescribed by: YENNI ROGEL MD Methylprednisolone (Medrol) 21 Tab/Pkg Tablet 1 TAB PO UD Follow package instructions Prescribed by: YENNI ROGEL MD Naproxen (Naproxen) 500 Mg Tab 500 MG PO BID PRN PRN For Pain (Reported) Nicotine 14 mg/24 hr Patch (Nicotine 14 mg/24 hr Patch) 1 Each Patch.td24 1 PATCH TOPICAL Q24H Prescribed by: YENNI ROGEL MD History History of ENT Problems?: No Other HEENT Pertinent History: Pt. not able to answer all question due to medical issues. Taken from ER admit. Hx of Heart Problems?: No Cardiovascular History: Denies:: Congestive Heart Failure Hypertension Other Cardiac History: Pt. not able to answer all question due to medical issues. Taken from ER admit. Hx of Respiratory Problem?: No Respiratory History: Denies:: Dyspnea Tuberculosis Other Resp Pertinent History: Pt. not able to answer all question due to medical issues. Taken from ER admit. Hx Neurologic Problems?: Yes Neurological History: Positive for:: Seizures ([facility] reported "pt. noncompliant with seizure meds".) Other Neurological Pertinent: Pt. not able to answer all question due to medical issues. Taken from ER admit. Hx of GI Problems?: No Other GI Pertinent History: Pt. not able to answer all question due to medical issues. Taken from ER admit. Hx of Problems?: Yes Genitourinary History: Positive for:: Urinary Tract Infection Denies:: Kidney Stones Other Pertinent History: Pt. not able to answer all question due to medical issues. Taken from ER admit. Female Hx: Denies:: Currently (Pt. not able to answer all question due to medical issues. Taken from ER ad) Other Skin Pertinent History: Pt. not able to answer all question due to medical issues. Taken from ER admit. Hx Musculoskeletal Problems?: No Hx of Psycho/Social Problems?: No Other Psych Pertinent History: Pt. not able to answer all question due to medical issues. Taken from ER admit. Hx Surgeries?: No Hx Any Other Health Problems?: No Other History: Positive for:: Hospitalization ([facility] per report from [facility].) History Blood Transfusions: Positive for:: Accept Blood Products? Denies:: Blood Transfuse Reaction Blood Transfusions Hx Diabetes: No Other Pertinent History: Pt. not able to answer all question due to medical issues. Taken from ER admit. Occupation: Unemployed Hx Substance Use: Yes (Herion, Meth, and Marijuana per ER report.) Smoking Status: Current Every Day Smoker Objective Exam Objective Imaging Patient Name: RAJANI ALSTON MR#: [id number] Location: CCU Ordering Phys: Abel Lee MD Date of Service: 07/16/16 1103 PROCEDURE: MRI SHOULDER LEFT WITHOUT CONTRAST (62572) INDICATIONS: septic L shoulder TECHNIQUE: Noncontrast oblique coronal T2 fast spin echo with fat saturation, oblique sagittal T1 spin echo and T2 fast spin echo with fat saturation, axial T1 spin echo and T2 fast spin echo with fat saturation through the shoulder. COMPARISON: None. FINDINGS: Image quality: Image quality severely limited secondary to patient motion. Rotator cuff: The supraspinatus, infraspinatus, and subscapularis tendons appear intact throughout. No rotator cuff muscle atrophy on sagittal images. Bones and bursae: No bone marrow contusions or fractures. No definite bone marrow edema. No osseous erosive changes identified. No acromioclavicular joint degeneration. The acromion demonstrates conventional anatomy, without an os acromiale. No pathologic subacromial-subdeltoid or subcoracoid bursal fluid is present. Capsule and soft tissues: In the absence of intra-articular contrast, the labrum and glenohumeral ligaments appear intact. The long head of the biceps tendon demonstrates normal location and morphology. The rotator interval appears normal, without fibrosis. The coracohumeral ligament is normal in thickness. Trace glenohumeral joint effusion is noted. Increased T2 signal noted in the subcutaneous fat of the left shoulder juxta-articular soft tissues compatible with edema. IMPRESSION: 1. Image quality severely limited by patient motion artifact. 2. No definite evidence of osteomyelitis. 3. Trace, nonspecific glenohumeral joint effusion. 3. Nonspecific subcutaneous edema involving the left shoulder. Infectious cellulitis cannot be excluded. No definite abscess identified within limitations of the study by motion artifact. Dictated by: Airam Salguero MD, PhD on 07/16/2016 at 15:23 Approved by: Airam Salguero MD, PhD on 07/16/2016 at 15:23 Vital Signs & I/O Vital Sign- Last 8 Hours Date Time Temp Pulse Resp B/P Pulse Ox O2 Delivery O2 Flow Rate FiO2 07/16/16 15:32 150 07/16/16 15:32 39.4 151 30 99/45 95 Nasal Cannula 2.00 07/16/16 11:55 36.6 118 30 105/82 97 Room Air Intake and Output- Last 8 Hour 07/16/16 Cumulative From/Thru 07:00 07/15/16 18:29 - 07/16/16 06:43 Intake Total 2334 ml 4334 ml Output Total 0 ml 0 ml Balance 2334 ml 4334 ml Intake Oral 200 ml 200 ml IV Total 2134 ml 4134 ml Output Urine Total 0 ml 0 ml # Voids 1 Lab & Micro Results Laboratory Tests Test 07/15/16 19:57 07/15/16 20:00 07/15/16 21:01 07/16/16 08:01 White Blood Count 18.7th/mm3 (3.8-10.1) 10.4th/mm3 (3.8-10.1) Red Blood Count 3.51mil/mm3 (3.90-5.20) 3.15mil/mm3 (3.90-5.20) Hemoglobin 10.1g/dL (12.0-15.6) 9.0g/dL (12.0-15.6) Hematocrit 30.7% (35.0-46.0) 27.5% (35.0-46.0) Mean Corpuscular Volume 87.5fL (81-100) 87.3fL (81-100) Mean Corpuscular Hemoglobin 28.8pg (27.0-35.0) 28.6pg (27.0-35.0) Mean Corpuscular Hemoglobin Concent 32.9% (32.0-37.0) 32.7% (32.0-37.0) Red Cell Distribution Width 12.7% (12.3-15.4) 12.8% (12.3-15.4) Platelet Count 134bil/L (150-400) 95bil/L (150-400) Neutrophils (%) (Auto) 82.9% (40-74) 79.7% (40-74) Lymphocytes (%) (Auto) 7.9% (14-46) 12.2% (14-46) Monocytes (%) (Auto) 6.3% (4-12) 6.2% (4-12) Eosinophils (%) (Auto) 0% (0-5) 0.3% (0-5) Basophils (%) (Auto) 0.2% (0-3) 0.5% (0-3) D-Dimer 11.5mg/L (<0.50) Sodium Level 128mEq/L (134-144) 136mEq/L (134-144) Potassium Level 4.1mEq/L (3.5-5.2) 3.8mEq/L (3.5-5.2) Chloride Level 90mEq/L (97-108) 104mEq/L (97-108) Carbon Dioxide Level 23mmol/L (18-29) 20mmol/L (18-29) Blood Urea Nitrogen 36mg/dL (6-20) 33mg/dL (6-20) Creatinine 2.11mg/dL (0.57-1.00) 1.78mg/dL (0.57-1.00) Estimat Glomerular Filtration Rate 42mL/min (>59) 51mL/min (>59) Glucose Level 102mg/dL (60-99) 145mg/dL (60-99) Lactic Acid Level 1.5mmol/L (0.4-2.0) Calcium Level 8.5mg/dL (8.5-10.1) 6.6mg/dL (8.5-10.1) Magnesium Level 2.1mg/dL (1.6-2.6) Total Bilirubin 0.6mg/dL (0.0-1.2) 0.2mg/dL (0.0-1.2) Aspartate Amino Transf (AST/SGOT) 32U/L (0-50) 21U/L (0-50) Alanine Aminotransferase (ALT/SGPT) 15U/L (0-32) 13U/L (0-32) Alkaline Phosphatase 108U/L (25-150) 65U/L (25-150) Total Protein 7.3g/dL (6.4-8.4) 4.9g/dL (6.4-8.4) Albumin 2.6g/dL (3.4-5.0) 1.7g/dL (3.4-5.0) Procalcitonin 18.69ng/mL (See Comment) 10.15ng/mL (See Comment) Urine HCG, Qualitative Negative (Negative) Urine Legionella pneumophilia Ag Negative (Negative) Urine Color Yellow (YELLOW) Urine Appearance Cloudy (CLEAR,HAZY) Urine pH 5.5 (5.0-8.0) Urine Specific [place] 1.015 (1.003-1.035) Urine Protein 30mg/dL (NEG,TRACE) Urine Glucose (UA) Negativemg/dL (NEGATIVE) Urine Ketones Negativemg/dL (NEGATIVE) Urine Occult Blood Large (NEGATIVE) Urine Nitrite Negative (NEGATIVE) Urine Bilirubin Negative (NEGATIVE) Urine Urobilinogen Normalmg/dL (NORMAL) Urine Leukocyte Esterase Large (NEGATIVE) Urine RBC 3-10/hpf (0-2) Urine WBC 6-10/hpf (0-5) Urine Epithelial Cells None/hpf (NONE-MOD) Urine Crystals None seen (NONE SEEN) Urine Bacteria Few/hpf (NONE-FEW) Urine Hyaline Casts None/lpf (NONE) Urine Granular Casts None seen (NONE SEEN) Urine Waxy Casts None seen (NONE SEEN) Urine Red Blood Cell Casts None seen (NONE SEEN) Urine White Blood Cell Casts None seen (NONE SEEN) Urine Mucus Present (None Seen) Urine Trichomonas None seen (NONE SEEN) Urine Yeast None (NONE SEEN) Urinalysis Comment None Urine Culture Reflexed Indicated Test 07/16/16 12:15 07/16/16 16:52 Fibrinogen 237mg/dL (157-380) Lactic Acid Level 0.8mmol/L (0.4-2.0) Microbiology 07/16/16 Blood Culture, Received Pending 07/16/16 Adenovirus DNA (PCR) - Final, Complete Not Detected 07/16/16 Coronavirus 229E PCR - Final, Complete Not Detected 07/16/16 Coronavirus HKU1 PCR - Final, Complete Not Detected 07/16/16 Coronavirus NL63 PCR - Final, Complete Not Detected 07/16/16 Coronavirus OC43 PCR - Final, Complete Not Detected 07/16/16 Influenza Type A (PCR) - Final, Complete Not Detected 07/16/16 Influenza Type B (PCR) - Final, Complete Not Detected 07/16/16 Human Metapneumovirus (PCR) (GAMALIEL) - Final, Complete Not Detected 07/16/16 Rhinovirus (PCR)(GAMALIEL) - Final, Complete Not Detected 07/16/16 Parainfluenza Virus Type 1 (PCR) - Final, Complete Not Detected 07/16/16 Parainfluenza Virus Type 2 (PCR) - Final, Complete Not Detected 07/16/16 Parainfluenza Virus Type 3 (PCR) - Final, Complete Not Detected 07/16/16 Parainfluenza Virus Type 4 (NAAT) - Final, Complete Not Detected 07/16/16 Respiratory Syncytial Virus (PCR)AL - Final, Complete Not Detected 07/16/16 Chlamydia pneumoniae (PCR) - Final, Complete Not Detected 07/16/16 Mycoplasma pneumoniae DNA Detection - Final, Complete 07/15/16 Urine Culture - Preliminary, Resulted No growth to date Result Diagram: 07/16/16 0807/16/16 08 Review of Systems: Constitutional: Negative, except as otherwise mentioned in the history above. Ophthalmologic: Negative, except as otherwise mentioned in the history above. Cardiovascular: Negative, except as otherwise mentioned in the history above. Respiratory: Negative, except as otherwise mentioned in the history above. Gastrointestinal: Negative, except as otherwise mentioned in the history above. Genitourinary: Negative, except as otherwise mentioned in the history above. Musculoskeletal: Negative, except as otherwise mentioned in the history above. Neurological: Negative, except as otherwise mentioned in the history above. Psychiatric: Negative, except as otherwise mentioned in the history above. Hematologic/Lymphatic: Negative, except as otherwise mentioned in the history above. Allergic/Immunologic: Negative, except as otherwise mentioned in the history above. H&P Surgical Exam Exam General: Severe Distress Musculoskeletal: Left shoulder girdle and upper extremity: No obvious deformity or swelling. Mild generalized erythema and increased warmth over posterior shoulder girdle with no localizing fluctuance or pointing abscess. The patient voices discomfort to even gentle, nonfocal palpation about the shoulder girdle. The patient is resistant to any active or passive movement of the shoulder, but with distraction seems to tolerate 40 of internal external rotation from a neutral adductor position. The patient is more resistant to forward flexion. There is no mechanical block or crepitus. There is less discomfort to palpation about the distal arm, elbow and forearm, wrist and hand. Neurovascular exam: Median, ulnar, radial, axillary sensation grossly intact to light touch. Flexor pollicis longus, interossei, extensor pollicis longus 2/5 motor power. Radial pulse is palpable. H&P Preop Plan Impression Generalized left shoulder girdle pain NYD. The patient's condition is somewhat puzzling and she is a challenging exam. Early cellulitis is a possibility, but abscess, septic arthritis or osteomyelitis less likely based on fairly benign appearing left shoulder MRI. Problems: Risks & Benefits * We have reviewed the risks and benefits as well as the alternatives to surgery. All questions were answered to the patient's satisfaction and a counseling note to that effect. The patient has provided informed consent. * I have counseled the patient regarding the deleterious effects that smoking during the perioperative period can have upon wound healing, infection rates, and the overall rate of complications. Plan The patient's left shoulder condition is likely multifactorial, however successful treatment of her infections will likely be the combs. I would agree with her current IV antibiotic regimen and therapy and would not recommend any surgical intervention. Left shoulder motion and activities can be encouraged as tolerated. Physical therapy for range of motion and ultimately strengthening may be of benefit if the patient is cooperative and compliant as her infection resolves. copies to: Taco Flores MD; Cristian Espinal MD; Abel Lee MD, Michael G.E MD Jul 16, 2016 19:25
[2016-07-16] MEDS ORDERED: Azithromycin Inj 500 MG in Dextrose 5% w/Vial Mate 250 ML IV SCH (20:30)
[2016-07-16] MEDS ORDERED: cefTRIAXone Inj 2,000 MG in IV Premix 1 EACH IV SCH (21:30)
[2016-07-17] MEDS: HYDROmorphone 0.5 mg/0.5 mL iSecure Syringe IVPUSH PRN ×5 (02:16→20:12)
[2016-07-17 04:34] VITALS: BP 109/48; PULSE 140; RESP 25; O2SAT 93
[2016-07-17] MEDS: 0.9% Sodium Chloride 1,000 ML IV SCH ×5 (04:34→23:38)
[2016-07-17 05:43] LABS: Mean Corpuscular Hemoglobin 28.3 pg (27.0-35.0); Mean Corpuscular Volume 88 fL (81-100); NEUTROPHILS % (AUTO) 78.5 % (40-74); Platelet Count 165 bil/L (150-400)
[2016-07-17 05:44] LABS: BASOPHILS % (AUTO) 0.2 % (0-3); EOSINOPHILS % (AUTO) 0.2 % (0-5); MONOCYTES % (AUTO) 8.7 % (4-12)
[2016-07-17 05:49] LABS: Magnesium 1.6 mg/dL (1.6-2.6)
[2016-07-17] MEDS: Norepineph 8,000 mCg/250 mL NS 8,000 MCG in IV Premix 1 EACH IV SCH (06:06)
[2016-07-17] MEDS ORDERED: 0.9% Sodium Chloride 500 ML ONE ×2 (06:22→06:45)
[2016-07-17] MEDS: 0.9% Sodium Chloride 500 ML IV PRN ×6 (06:50→22:44)
--- NOTE | 2016-07-17 07:08 | NUR ---
Micro/Hypotension/Pain/Fever/Anxiety Notified Dr. Amanda of +blood cultures 2/ bottles, staph resembling cocci, with no new order. Febrile, Tmax 39.5 C, given tylenol 975 mg po and applied cooling measures, last temp down to 38.2C. Pt c/o left shoulder pain 8-03/27, given dilaudid 1mg IV prn and oxycodone prn alternately, Pt anxious given ativan 1mg IV x 1. BP dropped in the low 90's this am, HR 130-140's, cvp 8, given NS 500 cc bolus x 1, BP improving, HR down to low [address]'s ST.
[2016-07-17 08:00] VITALS: BP 105/52; PULSE 95; RESP 19; O2SAT 95
[2016-07-17] MEDS: Vancomycin Dose per Pharmacist XX SCH (08:30)
--- NOTE | 2016-07-17 08:30 | NUR ---
Social Work: Screen D: Per EMR review, pt is a 25 year old female admitted for pneumonia, IVDA, Sepsis. Pt is [facility] insurance. PCP is Taco Flores MD. NOK is pt's mother, Lidya Miller. Advanced directives not on file. Readmit score is moderate, 3/8. Pt is currently in the CCU. Pt being followed by ID for possible septic shoulder and is currently on IV Abx. Ortho was consulted; no surgery indicated in consult note. Pt has a history of IV heroin and meth use and will require CD assessment from social work when appropriate. Pt has private insurance and likely could get to inpatient treatment if desired. A: Pt who is I at baseline. P: SR. DIRECTOR to meet with pt to complete CD assessment and facilitate discharge plan for pt. BINA Kurtz
[2016-07-17] MEDS ORDERED: DEXTROSE 5% IV ONE (08:43)
[2016-07-17] MEDS ORDERED: VANCOMYCIN IV ONE (08:43)
--- NOTE | 2016-07-17 08:49 | PCM.CONPHA ---
Subjective Shortness of breath, chest pain Objective Vital Signs Date Time Temp Pulse Resp B/P Pulse Ox O2 Delivery O2 Flow Rate FiO2 07/17/16 06:30 38.2 07/17/16 04:34 39.5 140 25 109/48 93 Room Air 07/16/16 23:48 36.9 106 23 115/70 98 Room Air 07/16/16 19:56 37.0 108 28 99/56 96 Room Air 07/16/16 19:56 108 07/16/16 15:32 150 07/16/16 15:32 39.4 151 30 99/45 95 Nasal Cannula 2.00 07/16/16 11:55 36.6 118 30 105/82 97 Room Air Intake and Output 07/15/16 07/16/16 07/17/16 00:00 00:00 00:00 Intake Total 2000 ml 2334 ml Output Total 0 ml Balance 2000 ml 2334 ml Weight (Kilograms): 65.300 Height (Feet): 5 Height (Inches): 2.00 Test 07/15/16 19:57 07/15/16 20:00 07/15/16 21:01 07/16/16 08:01 D-Dimer 11.5mg/L (<0.50) Urine HCG, Qualitative Negative (Negative) Urine Legionella pneumophilia Ag Negative (Negative) Urine Color Yellow (YELLOW) Urine Appearance Cloudy (CLEAR,HAZY) Urine pH 5.5 (5.0-8.0) Urine Specific [place] 1.015 (1.003-1.035) Urine Protein 30mg/dL (NEG,TRACE) Urine Glucose (UA) Negativemg/dL (NEGATIVE) Urine Ketones Negativemg/dL (NEGATIVE) Urine Occult Blood Large (NEGATIVE) Urine Nitrite Negative (NEGATIVE) Urine Bilirubin Negative (NEGATIVE) Urine Urobilinogen Normalmg/dL (NORMAL) Urine Leukocyte Esterase Large (NEGATIVE) Urine RBC 3-10/hpf (0-2) Urine WBC 6-10/hpf (0-5) Urine Epithelial Cells None/hpf (NONE-MOD) Urine Crystals None seen (NONE SEEN) Urine Bacteria Few/hpf (NONE-FEW) Urine Hyaline Casts None/lpf (NONE) Urine Granular Casts None seen (NONE SEEN) Urine Waxy Casts None seen (NONE SEEN) Urine Red Blood Cell Casts None seen (NONE SEEN) Urine White Blood Cell Casts None seen (NONE SEEN) Urine Mucus Present (None Seen) Urine Trichomonas None seen (NONE SEEN) Urine Yeast None (NONE SEEN) Urinalysis Comment None Urine Culture Reflexed Indicated Procalcitonin 10.15ng/mL (See Comment) Test 07/16/16 12:15 07/16/16 16:52 07/17/16 04:45 Fibrinogen 237mg/dL (157-380) Lactic Acid Level 0.8mmol/L (0.4-2.0) White Blood Count 15.9th/mm3 (3.8-10.1) Red Blood Count 2.86mil/mm3 (3.90-5.20) Hemoglobin 8.1g/dL (12.0-15.6) Hematocrit 25.1% (35.0-46.0) Mean Corpuscular Volume 88fL (81-100) Mean Corpuscular Hemoglobin 28.3pg (27.0-35.0) Mean Corpuscular Hemoglobin Concent 32.3% (32.0-37.0) Red Cell Distribution Width 12.7% (12.3-15.4) Platelet Count 165bil/L (150-400) Neutrophils (%) (Auto) 78.5% (40-74) Lymphocytes (%) (Auto) 12.4% (14-46) Monocytes (%) (Auto) 8.7% (4-12) Eosinophils (%) (Auto) 0.2% (0-5) Basophils (%) (Auto) 0.2% (0-3) Sodium Level 136mEq/L (134-144) Potassium Level 3.9mEq/L (3.5-5.2) Chloride Level 105mEq/L (97-108) Carbon Dioxide Level 16mmol/L (18-29) Blood Urea Nitrogen 18mg/dL (6-20) Creatinine 1.41mg/dL (0.57-1.00) Estimat Glomerular Filtration Rate 66mL/min (>59) Glucose Level 82mg/dL (60-99) Calcium Level 7.1mg/dL (8.5-10.1) Magnesium Level 1.6mg/dL (1.6-2.6) Total Bilirubin 0.3mg/dL (0.0-1.2) Aspartate Amino Transf (AST/SGOT) 16U/L (0-50) Alanine Aminotransferase (ALT/SGPT) 7U/L (0-32) Alkaline Phosphatase 60U/L (25-150) Total Protein 4.9g/dL (6.4-8.4) Albumin 1.8g/dL (3.4-5.0) Assessment/Plan Assessment/Plan Patient is an 25 y.o. female receiving vancomycin. WBC count is 15.9 and the patient is febrile. Patient is 65 kg, 62inches tall with a SCr of 1.4 mg/dL-- estimated CrCl of 65mL /min. Based on patient parameters vancomycin will be dosed at 1000mg q12h with a target trough of 15-20 /mL. Trough will be drawn prior to the 4th dose on 07/18 @ 1930. Pharmacy will follow daily and adjust as appropriate. Thank you for the consult in the care of this patient. RTM PharmD Chester Rwoe Jul 17, 2016 08:49
[2016-07-17] MEDS: Heparin 5,000 Unit/mL Inj SUBQ SCH ×2 (09:05→15:52)
--- NOTE | 2016-07-17 10:23 | DRSVH ---
[facility] [address] [place] [address] Echocardiogram Report Name: RAJANI ALSTON JStstephane Mirza e: 07/17/2016 Height: 62 in Hospital Exam Location: [facility] Weight: 131 lb Gender: Female BSA: 1.6 m2 : 1990 Age: 25 yrs BP: 101/55 mmHg Reason For Study: DYSPNEA, PNEUMONIA, SEPSIS Performed By: Della Joseph Referring Physician: SHARATH LEDESMA Interpretation Summary 1) Normal left ventricular size, thickness, wall motion, and systolic function (EF 60-65%). 2) Normal right ventricular size and function. 3) Moderate size vegetation (1.1 X 1.9cm) on the tricuspid valve. 4) Moderate to severe tricuspid regurgitation. 5) Unable to exclude aortic vegetation. No aortic stenosis or regurgitation are present. 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 6) No prior Echo available for comparison. Procedure: A two-dimensional transthoracic echocardiogram with color flow and Doppler was performed. The study quality was technically good. There is no prior echocardiogram noted for this patient. The patient was in a tachycardic rhythm during the exam. Left Ventricle: The left ventricle is normal in size, wall thickness, and systolic function without any focal wall motion abnormalities. The ejection fraction is estimated to be 60-65%. Spectral Doppler of the mitral valve shows a normal E/A wave ratio. Right Ventricle: The right ventricle grossly appears normal in size with probable normal systolic function. Atria: Both atria are normal in size. There is no Doppler evidence for an atrial septal defect. Mitral Valve: The mitral valve is normal. There is systolic anterior motion of the chordal apparatus. There is no vegetation seen on the mitral valve. There is no mitral regurgitation noted. Aortic Valve: The aortic valve is trileaflet. The aortic valve opens well. Cannot exclude aortic valvular vegetation. No aortic regurgitation is present. Tricuspid Valve: The tricuspid valve leaflets are thin and pliable. There is a moderate size vegetation or mass on the tricuspid valve. The structure measures 1.1 x 1.9 cm. There is moderate to severe tricuspid regurgitation. Pulmonic Valve: The pulmonic valve is not well seen, but is grossly normal. There is no vegetation on the pulmonic valve. There is no pulmonic valvular regurgitation. Great Vessels: The aortic root is normal size. The dimensions of the ascending aorta are normal. The pulmonary artery is normal size. The IVC is of normal diameter and collapses greater than 50% with a sniff. This suggests a low right atrial pressure of 3 mm Hg. Pericardium/ Pleura There is no pericardial effusion. There is no pleural effusion. MMode/2D Measurements & Calculations LVIDd: 4.7 cm LA dimension: 2.4 cm RA long axis LVOT diam: 2.1 cm LVIDs: 3.1 cm AoV Opening FS: 33.7 % LA A2 area: 16.6 cm RA area EPSS: 0.35 cm LA A4 area: 14.7 cm Ao root diam IVSd: 0.87 cm LA length (vol) : 15.7 cm LVPWd: 0.93 cm RA vol asc Aorta Diam LA vol: 42.3 ml : 45.0 ml LA vol index RA Ao Arch Diam : 28.2 mm/ (distal): 2.4 cm RVDd major IVC diam: 2.2 cm RVDd minor : 3.1 cm LV james. diameter/BSA LV sys. diameter/BSA (cm/m^2): 2.9 (cm/m^2): 1.9 Doppler Measurements & Calculations Ao V2 max MV E max fidel MV E/A: 1.0 TR max fidel : 128.8 cm/sec : 84.0 cm/sec Pulm A Revs Dur : 261.4 cm/sec Ao max PG MV A max fidel TR max PG : 6.6 mmHg : 81.9 cm/sec MV A dur: 0.11 sec : 27.5 mmHg Ao mean PG MV P1/2t: 60.2 msec PA V2 max : 90.1 cm/sec LVOT Max Fidel PA mean PG : 114.8 cm/sec CORRY(I,D): 3.3 cm PA Accel Time sev ratio : 0.08 sec MV dec time MV P1/2t max fidel Ao V2 mean LV V1 max PG : 0.20 sec : 85.9 cm/sec Ao V2 VTI: 21.6 cm LV V1 VTI MVA(P1/2t): 3.7 cm2 : 19.4 cm CORRY(V,D): 3.2 cm2 PA V2 mean CORRY indexed to BSA Pulm A Revs Dur - MV : 52.1 cm/sec (cm^2/m^2): 2.0 A Dur: -0.01 msec Reading Physician:10:22 AM
[2016-07-17 12:00] VITALS: BP 110/68; PULSE 102; RESP 29; O2SAT 96
--- NOTE | 2016-07-17 12:19 | PCM.PNMED ---
Subjective Date of Service Jul 17, 2016 Subjective Fevers over the course of the night. No dyspnea. She is still having a dry cough. Her left sternum and shoulder are both hurting quite a bit. If she moves her left arm at all the pain increases. She is urinating. No abdominal pain. Exam Vital Signs Vital Sign - Last Date Time Temp Pulse Resp B/P Pulse Ox O2 Delivery O2 Flow Rate FiO2 07/17/16 08:00 36.8 95 19 105/52 95 Room Air 07/16/16 15:32 2.00 Intake and Output 07/16/16 07/16/16 07/17/16 Cumulative From/Thru 15:00 23:00 07:00 07/15/16 18:29 - 07/17/16 05:05 Intake Total 2806 ml 7140 ml Output Total 1150 ml 1150 ml Balance 1656 ml 5990 ml Intake Oral 950 ml 1150 ml IV Total 1856 ml 5990 ml Output Urine Total 1150 ml 1150 ml # Voids 1 # Bowel Movements 0 0 Exam Alert oriented, withdrawn. Tearful. Normal scalp Normal neck, no adenopathy Lungs are clear normal effort Heart is regular without murmur. Abdomen soft. Extremities are free of edema. Good radial and pedal pulses. Left shoulder is not red or swollen or warm. Increased pain with any passive movement. The left clavicular sternal junction is also tender but without obvious swelling or redness. IVs and Medications Medications Reviewed: Medications were reviewed in detail Lab and Diagnostics Result Diagram: 07/17/1644407/17/16444 X-Rays, CTs and MRIs Date of Service: 07/15/16 1840 PROCEDURE: X-RAY CHEST, TWO VIEWS ([id number]) INDICATIONS: fever sob TECHNIQUE: 2 views of the chest were acquired. COMPARISON: [facility], CR, XR CHEST 1VW (PORTABLE), 03/06/2016, 13: 22. FINDINGS: Surgical changes and devices: None. Lungs and pleura: Bilateral lower lobe infiltrates consistent with pneumonia. No pleural effusions or pneumothorax. Mediastinum: Mediastinal contours are normal. Heart size is normal. Bones and chest wall: No suspicious bony abnormalities. Soft tissues appear unremarkable. IMPRESSION: Bilateral lower lobe pneumonia. Dictated by: Sharon Ospina M.D. on 07/15/2016 at 19:50 Approved by: Sharon Ospina M.D. on 07/15/2016 at 19:50 Assessment & Plan Patient is a 25-year-old IV heroin and meth using female presenting with shortness of breath and chest pain and admitted for severe sepsis with pneumonia and urinary tract infection: 1. Severe sepsis. Present on admission. Active. -Meets criteria with temp (38.4), HR (132) with organ dysfunction as evidence by creatinine 2.11 and MAP<65. Likely pulmonary or source, possible bacteremia given IVDU -Patient received 2L NS in ED. Ordered another liter NS. Maintain MAP>60 -Pending: blood cultures, MRSA screen -Lactic acid 1.5 The patient has 6 positive blood cultures consistent with endocarditis. There appears to be evidence of staph epidermidis and aureus. An echo was obtained and pending. Infectious diseases been consulting and are managing antibiotics at this point. 2. Possible Bibasilar pneumonia. Acute. Present on admission. Active -Chest x-ray suggestive of bilateral lower lobe pneumonia -Pending studies: procalcitonin, Legionella and strep pneumo ur Ag, Respiratory virus PCR -Antibiotics per infectious disease. 3. Acute kidney injury. Present on admission. Improving.. -Creatinine is 1.4 down from 2.11 yesterday We will continue IV fluids and follow labs. 4. Urinary tract infection. Acute. Present on admission. Active -UA with leukocyte esterase, pyuria, bacteria -Antibiotics as above, follow cultures 5. Elevated D-dimer. Present on admission. Active Leg ultrasound was negative. Not from his CT chest angiogram yesterday because of abnormal renal function. 6. Substance abuse. Chronic. Present on admission. Active -Currently uses IV meth and heroin. Has been on Suboxone in the past -Social work referral. There was a question of possible withdrawal. She is normalized her vital signs today and is getting opiates for pain control. This appears not to be an issue. 7. Probable staph aureus septicemia. This appears to be consistent with endocarditis. Awaiting final culture data. 8. Left shoulder pain. MRI negative for overt evidence of osteomyelitis, or septic joint. Orthopedics was consulted and are following. At this point we will continue to follow the shoulder. She does have a collected clavicular tenderness on the left. Dr. Lee has ordered a CT of the chest today we will see if there is any evidence of a septic arthritis. Patient Status: Patient is admitted under inpatient status with expected length of stay greater than 2 midnights due to severity of presenting symptoms, risk of adverse event, and complexity of treatment plan. Pain Evaluation: Adequate Pain Control GI Prophylaxis: Not indicated VTE Prophylaxis: Sub-Q Heparin (Unfractionated) Resuscitation Status: CPR: Attempt Resuscitation Time spent 30 minutes Mitul Barrera MD Jul 17, 2016 12:19
[2016-07-17] MEDS ORDERED: Calcium GLUCO 10% (mEq) Inj 4.65 MEQ in Dextrose 5% 50 ML IV ONE (12:20)
[2016-07-17] MEDS: Ceftaroline Inj 600 MG in Dextrose 5% 250 ML IV SCH ×2 (12:56→23:40)
[2016-07-17] MEDS ORDERED: 0.9% Sodium Chloride 250 ML ONE (13:12)
--- NOTE | 2016-07-17 15:10 | DRSVH ---
PROCEDURE: CT CHEST WITHOUT CONTRAST ([id number]) INDICATIONS: 25-year-old female with staph pneumonia, and possible empyema. TECHNIQUE: Intravenous contrast was not administered due to patient's renal failure. Noncontrast 5 mm thick sect ions acquired from the pulmonary apices to the posterior costophrenic angles. 7 mm thick coronal and sagittal MIP reformats were then acquired. For radiation dose reduction, the following was used: a utomated exposure control, adjustment of mA and/or kV according to patient size. COMPARISON: [facility], CR, XR CHEST 1VW (PORTABLE), 07/16/2016, 12:31. [facility], CR, XR CHEST 2V AP/PA AND LAT, 06/18/2016, 8:24 PM. [facility], CR, XR CHEST 2 VW, 07/15/2016, 18:50. FINDINGS: Image quality: Excellent. Lungs and pleura: Multiple variably sized nodular lesions are present in both lungs, some of which de monstrate internal thin-walled cavitation. Small dependent mobile pleural effusions are also present, larger on the left, causing dependent compressive atelectasis. No pneumothorax. Central and peripher al airways appear patent and normal in caliber. Mediastinum: Right PICC is present, with tip in expected position. Heart size is normal. No pericar dial effusion. No mediastinal adenopathy by size criteria. Thoracic aorta and central pulmonary art eries are normal in size. Esophagus is normal in caliber. No hiatal hernia. Bones and chest wall: No suspicious bony lesions. No vertebral body compression fractures. No axil gissell or supraclavicular adenopathy by size criteria. Thyroid gland is normal in size but incompletel y visualized. Abdomen: Visualized upper abdominal solid organs and bowel loops appear normal in the absence of con trast. IMPRESSION: 1. Multiple bilateral pulmonary nodular lesions, some of which demonstrate internal cavitation, consi stent with septic emboli. 2. Empyema is difficult to exclude in the absence of intravenous contrast. However, the small bilater al dependent pleural effusions appear nonloculated and mobile. Dictated by: Lance Dan M.D. on 07/17/2016 at 15:08 Approved by: Lance Dan M.D. on 07/17/2016 at 15:08
[2016-07-17 16:00] VITALS: BP 110/62; PULSE 144; RESP 39; O2SAT 95
--- NOTE | 2016-07-17 18:00 | NUR ---
Fever/Agitation... continues to have extreme tenderness of L arm/shoulder. Med with dilaudid and oxycodone and was able to sleep after meds given. This afternoon became more restless, tachycardic, moaning. I asked pt if she could be experiencing withdrawal and she replied "I don't know'. She stated she has hx of panic attacks. Med with Ativan and oxycodone and this helped her relax. Continued to be tachycardic. Temp recheck showed 39.9 ax. Given tylenol and HR is decreasing. Dr Barrera updated with hemodynamics and course of events. Is currently receiving NS bolus for CVP of 5. Was taken to CT for chest CT this am monitored and accommpanied by RN. Sha procedure fair with pain in positioning on the table.
[2016-07-17 20:00] VITALS: BP 90/36; PULSE 119; RESP 27; O2SAT 94
[2016-07-17] MEDS: VANCOMYCIN IV SCH (20:05)
[2016-07-17] MEDS: Sodium Chloride LOK Flush 10 mL Syringe IVFLUSH PRN (20:13)
[2016-07-17] MEDS: HYDROcodone-APAP 5-325 mg Tablet PO PRN (22:43)
[2016-07-18] VITALS (7 sets, daily range): BP systolic 103–122; BP diastolic 57–72; PULSE 94–138; RESP 25–33; O2SAT 94–97
[2016-07-18] MEDS: Heparin 5,000 Unit/mL Inj SUBQ SCH ×3 (00:20→16:11)
--- NOTE | 2016-07-18 00:40 | PROG NOTE ---
[address] [address] PROGRESS NOTE PATIENT: RAJANI ALSTON : 1990 MR#: [id number] ADMIT: 07/15/2016 JOB ID: [id number] DATE: 07/17/2016 REASON FOR FOLLOWUP: High-grade Staph septic shock. INTERVAL HISTORY: Recall that this is the 25-year-old intravenous opiate user who was admitted yesterday in septic shock with associated renal failure, pulmonary infiltrates and possible septic left shoulder. Yesterday morning when I first saw the patient, we ordered a variety of studies including a stat MRI scan of the left shoulder and Orthopedic consult. To my surprise, the MRI scan was not definitive in terms of showing a septic infection of the left shoulder and I later reviewed the case in person at the bedside with Dr. Espinal of [facility], who also did not feel that clinically there was a septic shoulder. Therefore, no intervention was done involving drainage of the left shoulder as it does not appear to be septic. We did aggressively treat the patient with ceftaroline as our initial therapy for possible Staph or Strep sepsis. This was chosen because the patient had some renal insufficiency as well as pulmonary infiltrates, and I wished to avoid daptomycin as well as vancomycin because of the obvious problems given those other issues. Over the past 24 hours, we have learned that all the blood cultures are growing multiple species of Staphylococci, and her renal function has improved somewhat. The patient's blood pressures also stabilized and she has been able to avoid the use of vasopressor agents, though she has had periods of hypotension. This morning, the patient is quite lethargic but is awake. She tells me she has been having fevers and chills, continued left pleuritic chest pain, severe left shoulder pain, and just generalized "sickness." She does not really speak in full sentences and does not appear to want to interact very much, though she is obviously awake and oriented at this point. PHYSICAL EXAMINATION: Vital signs include ongoing high spiking temperatures including 39.5 just a couple hours ago. Her pulse continues to be tachycardic ranging from 100-140, respiratory rate in the 20s, blood pressure 109/48, without vasopressor agents this morning. During the night, her blood pressures were intermittently low but apparently vasopressor agents were not used. The patient has no skin rash today, and no toxic erythema. She is awake, alert and a little bit . Eyes without notable abnormalities. Oral cavity without thrush or pharyngitis. The left shoulder remains very tender. The patient will not allow me to touch it. From a distance, it appears not to be erythematous, but she can move her left hand. Lungs are notable for some rales at the left base. Note that the patient does not take deep inspirations because of possible pleuritic chest pain on the left. Cardiac tones continue without murmur. Abdomen basically negative. Urine output is reasonable. LABORATORIES: Include a white count 16,000, diff with left shift. Creatinine 1.41, which is down from 2.11 when she hit the ED on the evening of the . Lactic acid 0.8. LFTs normal. Albumin 1.8. Urinalysis with 6-10 white cells. Legionella urine antigens negative, as is urine pneumococcal antigen. Gonorrhea and chlamydia in the urine are pending, as are HIV and hepatitis C serologies. We now have basically 8/ blood cultures growing Staph species. What is truly bizarre is that this is every single bottle, as both Staph aureus and a coag-negative Staph. So far, the micro lab has been unable to separate these two isolates enough to do susceptibilities. We may not have any susceptibility still July 19. MRSA screen of the nares is negative. Viral panel is also negative. IMAGING: Imaging to date includes chest x-ray, which shows patchy infiltrates in the bases, venous duplex studies that show no DVT, the shoulder MRI which did not show obvious infection of the left shoulder, either of the bone or soft tissues, and a prior chest x-ray which was the one I mentioned. IMPRESSION: This is a young woman who uses IV opiates and who basically presented with septic shock, hypoxia, renal failure, and agonizing left shoulder pain. To date, we have eight blood cultures positive for Staph aureus as well as coag-neg Staph and no susceptibilities. The most parsimonious way to put this case together would be as an endocarditis with involvement of the shoulder as well as the lung, but the patient has no murmur and we have no proof yet that this is the case. It is also possible she has a Staph aureus pneumonia with secondary seeding of the blood and elsewhere. At this point, this morning she has improved somewhat and she is starting to produce good amounts of urine and her creatinine is dropping. She also has somewhat improved blood pressure, so she is out of the soto, at least temporarily, with respect to septic shock and the need for vasopressor agents. The best treatment for the Staph species in her blood is still little ambiguous. Yesterday, I had started her on ceftaroline. During the night, I became worried and added daptomycin. Daptomycin is not a great choice here because if a pulmonary infection is a significant part of what is going on, the daptomycin will not prove useful. Ceftaroline is a good choice, though we have little experience with it in cases like this. I have been avoiding vancomycin up until now, even though it would be the traditional agent here because of her borderline renal function, but I think at this point, her kidneys are clearly improving and it is reasonable to add vancomycin. RECOMMENDATIONS: 1. The patient needs an echo, though it is not urgent, as it would not change our management at this point. We will start with a transthoracic echo and almost certainly have to do a transesophageal before we are done. 2. We await the final ID in the micro laboratory of what these organisms are and their susceptibilities. I have asked for daptomycin and ceftaroline susceptibilities. 3. Non-contrast CT of the chest has been ordered to better define pulmonary infiltrates or whether or not there is any empyema. 4. I will go ahead and stop the daptomycin, and start vancomycin at this point, continuing with the ceftaroline until we have more data on what is going on. There may, in fact, be some synergy between the vancomycin and beta-lactam, and, if all of these Staph isolates turn operator to be methicillin-susceptible, ceftaroline is likely a considerably better drug than vancomycin. 5. Will continue to closely follow this patient with you. BOYD
[2016-07-18] MEDS: 0.9% Sodium Chloride 1,000 ML IV SCH ×4 (01:37→20:35)
[2016-07-18] MEDS: HYDROmorphone 0.5 mg/0.5 mL iSecure Syringe IVPUSH PRN ×6 (02:00→23:03)
[2016-07-18] MEDS: Norepineph 8,000 mCg/250 mL NS 8,000 MCG in IV Premix 1 EACH IV SCH (03:42)
--- NOTE | 2016-07-18 03:43 | NUR ---
P) Fever/pain/BP/CVP Pt. febrile tonight, T-max37.6, continues to c/o severe shoulder pain every time she wakes, 7[birth year]03[birth year]. So far hav bolus'd 3.5L NS, CVP still 7 but BP has improved with MAP's in the 70's and heart rate is now under 100. I) Cont. close monitoring, pt. refusing to wear SCD's, turn or have bed straightened. Passive cooling and pain meds per 's orders, pt. often tearful with pain. E) Currently resting quietly, last temp 36.6c orally.
[2016-07-18 04:30] LABS: Mean Corpuscular Hemoglobin 27.8 pg (27.0-35.0); Mean Corpuscular Volume 87.5 fL (81-100)
[2016-07-18] MEDS: 0.9% Sodium Chloride 500 ML IV PRN ×2 (04:30→18:14)
[2016-07-18] MEDS: Sodium Chloride LOK Flush 10 mL Syringe IVFLUSH PRN (06:15)
[2016-07-18] MEDS ORDERED: Potassium Chloride 20 mEq SR Tablet PO ONE ×3 (08:05→15:00)
[2016-07-18] MEDS: Vancomycin Dose per Pharmacist XX SCH (08:30)
[2016-07-18] MEDS: VANCOMYCIN IV SCH ×2 (08:54→23:08)
--- NOTE | 2016-07-18 09:28 | PCM.PNMED ---
Subjective Date of Service Jul 18, 2016 Subjective Still having significant left shoulder pain which increases with movement. She is feeling a little short of breath has a dry cough. No abdominal pain. She does have anorexia. No numbness weakness of arms or legs. No neck or back pain. Exam Vital Signs Vital Sign - Last Date Time Temp Pulse Resp B/P Pulse Ox O2 Delivery O2 Flow Rate FiO2 07/18/16 04:00 36.7 103 33 106/72 97 Room Air 07/16/16 15:32 2.00 Intake and Output 07/17/16 07/17/16 07/18/16 Cumulative From/Thru 15:00 23:00 07:00 07/15/16 18:29 - 07/18/16 06:29 Intake Total 4871 ml 7390 ml 88266 ml Output Total 975 ml 1000 ml 3125 ml Balance 3896 ml 6390 ml 06639 ml Intake Oral 1040 ml 120 ml 2310 ml IV Total 3831 ml 7270 ml 44948 ml Output Urine Total 975 ml 1000 ml 3125 ml # Voids 1 # Bowel Movements 0 Exam Alert oriented, somewhat anxious. Tach. Anicteric sclerae, symmetric pupils Neck supple normal JVP Lungs with some expiratory wheezing Increased rate. Heart is regular without murmur Abdomen is soft nondistended. Extremities with 1+ edema. Skin is free of rash or lesions IVs and Medications Medications Reviewed: Medications were reviewed in detail Lab and Diagnostics Result Diagram: 07/18/[id number]/18/16414 X-Rays, CTs and MRIs Date of Service: 07/15/16 1840 PROCEDURE: X-RAY CHEST, TWO VIEWS ([id number]) INDICATIONS: fever sob TECHNIQUE: 2 views of the chest were acquired. COMPARISON: [facility], CR, XR CHEST 1VW (PORTABLE), 03/06/2016, 13: 22. FINDINGS: Surgical changes and devices: None. Lungs and pleura: Bilateral lower lobe infiltrates consistent with pneumonia. No pleural effusions or pneumothorax. Mediastinum: Mediastinal contours are normal. Heart size is normal. Bones and chest wall: No suspicious bony abnormalities. Soft tissues appear unremarkable. IMPRESSION: Bilateral lower lobe pneumonia. Dictated by: Sharon Ospina M.D. on 07/15/2016 at 19:50 Approved by: Sharon Ospina M.D. on 07/15/2016 at 19:50 Cardiac Echo Impressions Shows a tricuspid valve vegetation with moderate to severe regurgitation Additional Diagnostics Chest CT reveals multiple pulmonary emboli and small bilateral pleural effusion Assessment & Plan Patient is a 25-year-old IV heroin and meth using female presenting with shortness of breath and chest pain and admitted for severe sepsis with pneumonia and urinary tract infection: 1. Severe sepsis. Present on admission. Active. -Meets criteria with temp (38.4), HR (132) with organ dysfunction as evidence by creatinine 2.11 and MAP<65. Likely pulmonary or source, possible bacteremia given IVDU -Patient received 2L NS in ED. Ordered another liter NS. Maintain MAP>60 -Pending: blood cultures, MRSA screen -Lactic acid 1.5 The patient has 6 positive blood cultures consistent with endocarditis. There appears to be evidence of staph epidermidis and aureus. An echo was obtained and pending. Infectious diseases been consulting and are managing antibiotics at this point. 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 Acute. Present on admission. Active We will continue vancomycin and Ceftin Earleen per infectious disease. The patient has a CVP of 11. She does have a resting tachycardia even when afebrile. She has significant tricuspid regurgitation and remains at risk for requiring emergent valve replacement. 3. Acute kidney injury. Present on admission. Resolving.. -Creatinine is 1.4 down from 2.11 yesterday We will continue IV fluids and follow labs. 4. Urinary tract infection. Acute. Present on admission. Active -UA with leukocyte esterase, pyuria, bacteria -Antibiotics as above, follow cultures 5. Elevated D-dimer. Present on admission. Active Leg ultrasound was negative. Not from his CT chest angiogram yesterday because of abnormal renal function. 6. Substance abuse. Chronic. Present on admission. Active -Currently uses IV meth and heroin. Has been on Suboxone in the past -Social work referral. There was a question of possible withdrawal. She is normalized her vital signs today and is getting opiates for pain control. This appears not to be an issue. 7. Probable staph aureus septicemia. This appears to be consistent with endocarditis. Awaiting final culture data. 8. Left shoulder pain. MRI negative for overt evidence of osteomyelitis, or septic joint. Orthopedics was consulted and are following. At this point we will continue to follow the shoulder. She does have a collected clavicular tenderness on the left. Dr. Lee has ordered a CT of the chest today we will see if there is any evidence of a septic arthritis. Patient Status: Patient is admitted under inpatient status with expected length of stay greater than 2 midnights due to severity of presenting symptoms, risk of adverse event, and complexity of treatment plan. Pain Evaluation: Adequate Pain Control GI Prophylaxis: Not indicated VTE Prophylaxis: Sub-Q Heparin (Unfractionated) Resuscitation Status: CPR: Attempt Resuscitation Time spent 40 minutes Mitul Barrera MD Jul 18, 2016 09:28
--- NOTE | 2016-07-18 10:34 | DRSVH ---
PROCEDURE: X-RAY CHEST ONE VIEW ([id number]) INDICATIONS: dyspnea TECHNIQUE: One view of the chest was acquired. COMPARISON: [facility], CR, XR CHEST 1VW (PORTABLE), 07/16/2016, 12:31. FINDINGS: Surgical changes and devices: PICC line projects in the mid SVC via a left-sided approach. Angiocat h noted in the left neck. Lungs and pleura: Small left-sided pleural fluid collection is noted. Patchy airspace opacities not ed in the lungs bilaterally. Mediastinum: Mediastinal contours appear normal. Heart size is normal. Bones and chest wall: No suspicious bony lesions. Overlying soft tissues appear unremarkable. IMPRESSION: 1. Small left-sided pleural effusion. 2. Bilateral patchy airspace opacities and increased in size compared to prior examination suspiciou s for progression of pneumonia. Dictated by: Airam Salguero MD, PhD on 07/18/2016 at 10:33 Approved by: Airam Salguero MD, PhD on 07/18/2016 at 10:33
[2016-07-18] MEDS: Ceftaroline Inj 600 MG in Dextrose 5% 250 ML IV SCH ×3 (11:08→23:09)
--- NOTE | 2016-07-18 15:00 | NUR ---
Temp/Tachycardia.. Noted to have a temp of 39.3 ax this am. Pt moaning with L shoulder pain, RR in the 30-40's HR 140's. Dr Bauman updated. Pt given Tylenol and temp recheck was 37 ax. HR has come down and RR is in the 20's with stable Spo2. CVP have been in parameters ordered and no boluses required this shift. Appetite is marginal. PO fluids encouraged.
[2016-07-18] MEDS ORDERED: Vancomycin Serum Trough XX ONE (19:30)
--- NOTE | 2016-07-18 23:11 | NUR ---
VANCO TROUGH 19, PER DIO PHARMACIST OK TO GIVE TONIGHT DOSE, WILL RETROUGH...
[2016-07-19] VITALS (10 sets, daily range): BP systolic 107–126; BP diastolic 59–89; PULSE 94–118; RESP 24–32; O2SAT 93–100
[2016-07-19] MEDS: Heparin 5,000 Unit/mL Inj SUBQ SCH ×4 (00:33→23:20)
[2016-07-19] MEDS: 0.9% Sodium Chloride 1,000 ML IV SCH ×3 (01:20→23:10)
[2016-07-19] MEDS: HYDROmorphone 0.5 mg/0.5 mL iSecure Syringe IVPUSH PRN ×6 (04:56→23:12)
[2016-07-19] MEDS: Norepineph 8,000 mCg/250 mL NS 8,000 MCG in IV Premix 1 EACH IV SCH ×2 (05:36→23:20)
--- NOTE | 2016-07-19 05:36 | NUR ---
P: c/o L shoulder pain I: attempt to elevate L arm/shoulder on pillow, kpad, heat pack, tylenol, oxycodone, dialuadid IVP E: Drowsy, oriented. Moans, teary w/ movement. c/o L shoulder sharp pain increase w/ movement, 8-9/10. After medication given pt falling asleep. Does not like to elevate L arm. Denies dyspnea, N/V. Tele SR/ST. MAX temp 101.1 AX. Tylenol given end of day shift and again this shift. HR in the 120s til temperature improving. HR ranging from 80-100s. CVP 8 range, 500 NS bolus x 3 and CVP generally meeting goal 10-12. Lg urine incontinence start of shift requiring gown and total bed change. Use bedpan one time in AM hours, yellow, cloudy urine. Taking in fluids. RA sats in the high 90s. RR short shallow breathes, in the mid to high 20s. Dry cough.
[2016-07-19] MEDS ORDERED: Potassium Chloride Oral 20 mEq SR Tab(K 3 - 3.7 & Creat < 2) PO ONE (06:05)
[2016-07-19] MEDS: HYDROcodone-APAP 5-325 mg Tablet PO PRN ×3 (07:34→21:00)
[2016-07-19] MEDS: Nafcillin Inj 12,000 MG in Dextrose 5% 1,000 ML IV SCH (09:20)
[2016-07-19 10:52] LABS: Mean Corpuscular Hemoglobin 27.9 pg (27.0-35.0); Mean Corpuscular Volume 89.3 fL (81-100)
--- NOTE | 2016-07-19 11:17 | PCM.PNMED ---
Subjective Date of Service Jul 19, 2016 Subjective Less fever. Less dyspnea. Less shoulder pain. Dry cough. No abdomen pain, positive anorexia Exam Vital Signs Vital Sign - Last Date Time Temp Pulse Resp B/P Pulse Ox O2 Delivery O2 Flow Rate FiO2 07/19/16 08:00 103 07/19/16 07:30 36.9 26 111/73 100 Room Air 07/16/16 15:32 2.00 Intake and Output 07/18/16 07/18/16 07/19/16 Cumulative From/Thru 15:00 23:00 07:00 07/15/16 18:29 - 07/19/16 05:10 Intake Total 3098 ml 3852 ml 55787 ml Output Total 1100 ml 650 ml 4875 ml Balance 1998 ml 3202 ml 77879 ml Intake Oral 1010 ml 720 ml 4040 ml IV Total 2088 ml 3132 ml 25752 ml Output Urine Total 1100 ml 650 ml 4875 ml # Voids 1 2 4 # Bowel Movements 0 0 0 Exam Alert oriented, somewhat anxious. Tach. Anicteric sclerae, symmetric pupils Neck supple normal JVP Lungs with some expiratory wheezing Increased rate. Heart is regular without murmur Abdomen is soft nondistended. Extremities with 1+ edema. Skin is free of rash or lesions IVs and Medications Medications Reviewed: Medications were reviewed in detail Lab and Diagnostics Result Diagram: 07/19/16 0445 07/19/16 0930 X-Rays, CTs and MRIs Date of Service: 07/15/16 1840 PROCEDURE: X-RAY CHEST, TWO VIEWS ([id number]) INDICATIONS: fever sob TECHNIQUE: 2 views of the chest were acquired. COMPARISON: [facility], CR, XR CHEST 1VW (PORTABLE), 03/06/2016, 13: 22. FINDINGS: Surgical changes and devices: None. Lungs and pleura: Bilateral lower lobe infiltrates consistent with pneumonia. No pleural effusions or pneumothorax. Mediastinum: Mediastinal contours are normal. Heart size is normal. Bones and chest wall: No suspicious bony abnormalities. Soft tissues appear unremarkable. IMPRESSION: Bilateral lower lobe pneumonia. Dictated by: Sharon Ospina M.D. on 07/15/2016 at 19:50 Approved by: Sharon Ospina M.D. on 07/15/2016 at 19:50 Cardiac Echo Impressions Shows a tricuspid valve vegetation with moderate to severe regurgitation Additional Diagnostics Chest CT reveals multiple pulmonary emboli and small bilateral pleural effusion Assessment & Plan Patient is a 25-year-old IV heroin and meth using female presenting with shortness of breath and chest pain and admitted for severe sepsis with pneumonia and urinary tract infection: 1. Severe sepsis. Present on admission. Active. -Meets criteria with temp (38.4), HR (132) with organ dysfunction as evidence by creatinine 2.11 and MAP<65. Likely pulmonary or source, possible bacteremia given IVDU -Patient received 2L NS in ED. Ordered another liter NS. Maintain MAP>60 -Pending: blood cultures, MRSA screen -Lactic acid 1.5 The patient has 6 positive blood cultures consistent with endocarditis. There appears to be evidence of staph epidermidis and aureus. An echo was obtained and pending. Infectious diseases been consulting and are managing antibiotics at this point. 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 Acute. Present on admission. Active We will continue vancomycin and Ceftin Earleen per infectious disease. The patient has a CVP of 11. She does have a resting tachycardia even when afebrile. She has significant tricuspid regurgitation and remains at risk for requiring emergent valve replacement. 3. Acute kidney injury. Present on admission. Resolving. Will check labs today. We will continue IV fluids and follow labs. 4. Urinary tract infection. Acute. Present on admission. Active -UA with leukocyte esterase, pyuria, bacteria -Antibiotics as above, follow cultures 5. Elevated D-dimer. Present on admission. Active Leg ultrasound was negative. 6. Substance abuse. Chronic. Present on admission. Active -Currently uses IV meth and heroin. Has been on Suboxone in the past -Social work referral. There was a question of possible withdrawal. She is normalized her vital signs today and is getting opiates for pain control. This appears not to be an issue. 7. Probable staph aureus septicemia. This appears to be consistent with endocarditis. Awaiting final culture data. 8. Left shoulder pain. MRI negative for overt evidence of osteomyelitis, or septic joint. Orthopedics was consulted and are following. At this point we will continue to follow the shoulder. She does have a collected clavicular tenderness on the left. Dr. Lee has ordered a CT of the chest today we will see if there is any evidence of a septic arthritis. Will discuss with ortho today or Tuesday. Possibke repeat imaging. GI Prophylaxis: Not indicated VTE Prophylaxis: Sub-Q Heparin (Unfractionated) Resuscitation Status: CPR: Attempt Resuscitation Time spent 30 min Mitul Barrera MD Jul 19, 2016 11:17
--- NOTE | 2016-07-19 11:20 | NUR ---
Anxiety/O2/HR Around 0900, the pt became "cold" and had a panic attack. The pt's O2 sats dropped to the high 70's, with RR 32 and HR 140's sustained. Attempts to warm and soothe via warm blankets and therapeutic communication were attempted before giving ativan and dilaudid. 30 minutes post "attack", the pt was resting comfortably with vitals WNL. At 1120, the pt continues to rest with vitals WNL. MD aware. Addendum: 07/19/16 at 1128 by KATELYN PUENTE RN Lab was unable to draw peripheral blood cultures - 3 seperate attempts. Both blood culture labs were drawn from the [facility].
--- NOTE | 2016-07-19 17:05 | PROG NOTE ---
[address] [address] PROGRESS NOTE PATIENT: RAJANI ALSTON : 1990 MR#: [id number] ADMIT: 07/15/2016 JOB ID: [id number] DATE: 07/19/2016 REASON FOR FOLLOWUP: Tricuspid endocarditis with septic pulmonary emboli and possible septic left shoulder. INTERVAL HISTORY: Since I last saw the patient 48 hours ago, she has improved slightly. Her fevers, chills and rigors have resolved. She continues though to have bilateral pleuritic chest pain, worse on the left, as well as severe left shoulder pain. We discussed her diagnosis this morning and the need for prolonged hospitalization and aggressive care. PHYSICAL EXAMINATION: Reveals an afebrile woman who has now been afebrile for about 12 hours. Current temp 36.9, pulse 99, respiratory rate 26, blood pressure 111/73. She is saturating well on room air. Examination of the mental status reveals it to be clear though the patient is clearly depressed. Eyes without conjunctival hemorrhage. Oral cavity negative. Left shoulder still will not allow examination or even touching the shoulder due to pain. There is no erythema present over the shoulder, however, but that is as far as exam can proceed. Lungs notable for restricted inspiration bilaterally, a few crackles bilaterally. Cardiac tones: A 2/6 murmur. Abdomen: Soft and nontender. No skin rash. No peripheral stigmata of endocarditis. LABORATORIES: Include white count which is 19,800, platelets 198 which has improved considerably. Creatinine 1.17, albumin 1.3. Hepatitis C and HIV are negative. Gonorrhea and chlamydia negative. 8/8 blood cultures done so far positive for Staph aureus. This includes blood cultures done on July 15 as well as July 16. There have not been any repeat blood cultures for two days, and we have no negative blood cultures to date. MRSA screen was negative. IMAGING: Includes a chest CT that I had ordered on July 17 which showed multiple bilateral pulmonary nodules, some which are cavitating. The entire picture is compatible with septic emboli. Recall that the shoulder MRI did not show clear-cut evidence of septic joint and an orthopedic business transformation consultant evaluated the patient on Tuesday, the , and did not see evidence of septic shoulder. IMPRESSION: This is a complex case of a young woman who has been actively injecting narcotics. She presented with septic shock, hypoxia, renal failure, bilateral pleuritic chest pain and left shoulder pain. At this point, we have eight positive blood cultures but no negatives to date. The patient has improved somewhat in that her fever, tachycardia and shock have resolved and her renal function has improved though still not normalized. Of great concern is the continued severe left shoulder pain which in the setting of Staph bacteremia still raises concerns about possible septic shoulder. Note that the combination of the echo which shows a 1.9 cm tricuspid valve vegetation of the septic emboli in the lungs in conjunction with the high-grade methicillin-sensitive Staphylococcus aureus bacteremia basically establishes a diagnosis of tricuspid endocarditis with septic emboli to the lungs. Until recently, the standard treatment for this would be nafcillin or cefazolin plus gentamicin for 2-4 weeks. The more recent literature suggests gentamicin does not add much to this therapy but does increase toxicity, so we will withhold that as part of our treatment. How long to treat the patient will depend on whether or not she has involvement of the left shoulder. RECOMMENDATIONS: 1. Will DC vancomycin and Ceftaroline. 2. Will start the patient on continuous-infusion nafcillin. 3. Additional blood cultures will be done today. 4. If the blood cultures are negative today, we can probably figure on a minimum of two weeks of therapy which will take us through until least August 02. If the patient has a septic shoulder or osteo of the left shoulder will, of course, need to go longer. 5. Given the patient's IV-using proclivities, and the fact she was using IV drugs right up until the morning of admission, I think all of this will need to be carried out in the inpatient setting. 6. I would ask our orthopedic colleagues to visit with the patient again today or tomorrow and see what advice they would have in terms of managing her very severe left shoulder pain. It may be that we will need to go back, now that her renal function is stabilized, and do an MRI with contrast of the left shoulder. It may also be necessary going forward to do a CT scan with contrast of her chest, but I think we can probably wait on that. 7. If her blood cultures fail to become negative with aggressive antimicrobial therapy, this would constitute a possible indication for valve replacement and we would need to speak to Cardiology and CT Surgery about possible valve replacement.
[2016-07-19] MEDS ORDERED: Vancomycin Serum Trough XX ONE (19:30)
[2016-07-20] VITALS (9 sets, daily range): BP systolic 114–131; BP diastolic 68–91; PULSE 102–124; RESP 24–41; O2SAT 97–100
[2016-07-20] MEDS: HYDROmorphone 0.5 mg/0.5 mL iSecure Syringe IVPUSH PRN ×7 (04:44→23:38)
--- NOTE | 2016-07-20 05:36 | NUR ---
NOC shift/ Pain Pt A/O, but groggy. Pt goes from sleeping comfortably, to awake and hollering in pain.Pt c/o intolerable pain at L shoulder. Hot compress applied- PRN Roxicodone given in addition to PRN IV Dilaudid and Ativan. PT remains afebrile however complains of being cold. Pt states "The Dilaudid is the only thing that takes the cold away). CVP measurements between 9-10). NS continues infusing @150ml/ hr.
[2016-07-20] MEDS: 0.9% Sodium Chloride 1,000 ML IV SCH ×3 (05:54→19:32)
[2016-07-20] MEDS ORDERED: Furosemide 10 mg/mL 2 mL Inj IVPUSH ONE (07:20)
[2016-07-20] MEDS: HYDROcodone-APAP 5-325 mg Tablet PO PRN ×2 (07:46→13:46)
[2016-07-20] MEDS: Heparin 5,000 Unit/mL Inj SUBQ SCH ×2 (07:47→16:52)
--- NOTE | 2016-07-20 08:21 | PCM.PNMED ---
Subjective Date of Service Jul 20, 2016 Subjective She is still having a fair amount of left shoulder and sternal clavicular joint pain. Her breathing is better although she still breathing fast. She still has anorexia. She feels very fatigued. No abdominal pain. No chest pain. Exam Vital Signs Vital Sign - Last Date Time Temp Pulse Resp B/P Pulse Ox O2 Delivery O2 Flow Rate FiO2 07/20/16 07:30 37.2 122 28 114/71 97 Room Air 07/16/16 15:32 2.00 Intake and Output 07/19/16 07/19/16 07/20/16 Cumulative From/Thru 15:00 23:00 07:00 07/15/16 18:29 - 07/20/16 06:28 Intake Total 3250 ml 2451 ml 94639 ml Output Total 1250 ml 6125 ml Balance 3250 ml 1201 ml 52540 ml Intake Oral 200 ml 4240 ml IV Total 3250 ml 2251 ml 42356 ml Output Urine Total 1250 ml 6125 ml # Voids 4 # Bowel Movements 0 Exam Alert oriented 3. Flat affect. Normal skull. Anicteric sclerae. Neck supple Lungs are clear with scattered rhonchi. Tachypneic. She has left sternoclavicular joint pain with tenderness and increased left shoulder pain with passive range of motion Abdomen is distended and nontender. Heart is regular without discernible murmur , tachycardic Extremities are free of edema good pedal and radial pulses which are brisk. Skin is free of rash or lesions. No peripheral stigmata of endocarditis. IVs and Medications Medications Reviewed: Medications were reviewed in detail Lab and Diagnostics Result Diagram: 07/19/16 0445 07/19/16 0930 X-Rays, CTs and MRIs Date of Service: 07/15/16 1840 PROCEDURE: X-RAY CHEST, TWO VIEWS ([id number]) INDICATIONS: fever sob TECHNIQUE: 2 views of the chest were acquired. COMPARISON: [facility], CR, XR CHEST 1VW (PORTABLE), 03/06/2016, 13: 22. FINDINGS: Surgical changes and devices: None. Lungs and pleura: Bilateral lower lobe infiltrates consistent with pneumonia. No pleural effusions or pneumothorax. Mediastinum: Mediastinal contours are normal. Heart size is normal. Bones and chest wall: No suspicious bony abnormalities. Soft tissues appear unremarkable. IMPRESSION: Bilateral lower lobe pneumonia. Dictated by: Sharon Ospina M.D. on 07/15/2016 at 19:50 Approved by: Sharon Ospina M.D. on 07/15/2016 at 19:50 Cardiac Echo Impressions Shows a tricuspid valve vegetation with moderate to severe regurgitation Additional Diagnostics Chest CT reveals multiple pulmonary emboli and small bilateral pleural effusion Assessment & Plan Patient is a 25-year-old IV heroin and meth using female presenting with shortness of breath and chest pain and admitted for severe sepsis with pneumonia and urinary tract infection: 1. Severe sepsis. Present on admission. Active. -Meets criteria with temp (38.4), HR (132) with organ dysfunction as evidence by creatinine 2.11 and MAP<65. Likely pulmonary or source, possible bacteremia given IVDU -Patient received 2L NS in ED. Ordered another liter NS. Maintain MAP>60 -Pending: blood cultures, MRSA screen -Lactic acid 1.5 The patient has 6 positive blood cultures consistent with endocarditis. There appears to be evidence of staph epidermidis and aureus. An echo was obtained and pending. Infectious diseases been consulting and are managing antibiotics at this point. 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 Acute. Present on admission. Active We will continue vancomycin and Ceftin Earleen per infectious disease. The patient has a CVP of 11. She does have a resting tachycardia even when afebrile. She has significant tricuspid regurgitation and remains at risk for requiring emergent valve replacement. 3. Acute kidney injury. Present on admission. Resolving. Will check labs today. We will continue IV fluids and follow labs. 4. Urinary tract infection. Acute. Present on admission. Active -UA with leukocyte esterase, pyuria, bacteria -Antibiotics as above, follow cultures 5. Elevated D-dimer. Present on admission. Active 6. 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 Discussed with infectious disease. She will likely require extended course of antibiotics. We will consider reimaging the next 1-2 days. Leg ultrasound was negative. 6. Substance abuse. Chronic. Present on admission. Active -Currently uses IV meth and heroin. Has been on Suboxone in the past -Social work referral. There was a question of possible withdrawal. She is normalized her vital signs today and is getting opiates for pain control. This appears not to be an issue. 7. Probable staph aureus septicemia. This appears to be consistent with endocarditis. Awaiting final culture data. 8. Left shoulder pain. MRI negative for overt evidence of osteomyelitis, or septic joint. Orthopedics was consulted and are following. At this point we will continue to follow the shoulder. She does have a collected clavicular tenderness on the left. Dr. Lee has ordered a CT of the chest today we will see if there is any evidence of a septic arthritis. Will discuss with ortho today or Tuesday. Possibke repeat imaging. GI Prophylaxis: Not indicated VTE Prophylaxis: Sub-Q Heparin (Unfractionated) Resuscitation Status: CPR: Attempt Resuscitation Time spent 30 min Mitul Barrera MD Jul 20, 2016 08:21
[2016-07-20] MEDS: Nafcillin Inj 12,000 MG in Dextrose 5% 1,000 ML IV SCH (09:12)
--- NOTE | 2016-07-20 09:33 | PROG NOTE ---
[address] [address] PROGRESS NOTE PATIENT: RAJANI ALSTON : 1990 MR#: [id number] ADMIT: 07/15/2016 JOB ID: [id number] DATE: 07/20/2016 INFECTIOUS DISEASE FOLLOWUP NOTE: REASON FOR FOLLOWUP: Tricuspid endocarditis with septic pulmonary emboli, as well as possible septic left shoulder and possible left sternoclavicular joint. INTERVAL HISTORY: Overnight, the patient continues to complain of severe left shoulder pain, which leaves her almost immobile. She denies fevers or chills, and she notes her pleuritic chest pain is starting to diminish, though it is still present. Her fevers have resolved. PHYSICAL EXAMINATION: Reveals a very uncomfortable woman lying still in her PCC bed. Temperature 37.2, and she has now been afebrile for a day and a half, which is the first time that has occurred since admission. She continues to be very tachycardic, pulse 100-120, respiratory rate in the upper 20s, blood pressure 114/71. She is saturating well on room air. The patient is uncomfortable and whimpers when asked questions, so it is a bit difficult to obtain a history but she is oriented. Examination of the eyes: No change. Oral cavity: No change. The patient has a tender left sternoclavicular joint which is of great concern. She still refuses to move her left shoulder which is also of concern. Cardiac tones without significant murmur, interestingly. Lungs with crackles but decreased over yesterday. Abdomen benign. Lower extremities with some 1+ edema. LABORATORIES: Include a white count yesterday 17,000. Today's have not been obtained yet. Creatinine yesterday was 1.16. Today's was just ordered. Staph aureus grew from multiple blood cultures on the and . The blood cultures from July 19 are negative at this point but it has only been 24 hours. IMAGING: No new imaging has been done today. IMPRESSION: This patient has tricuspid endocarditis based on the echo and positive blood cultures, as well as septic pulmonary emboli. Dr. Mitul Barrera of the hospitalist team and I discussed this case at the bedside, and we are both very worried that she may have a left septic shoulder even though the initial MRI and evaluation by Orthopedics suggested otherwise. We are also concerned that she may have a septic left sternoclavicular joint. I had earlier hoped we would get away with two weeks of therapy if this was uncomplicated tricuspid endocarditis in an IV drug user with no extrapulmonary manifestations but I am increasingly concerned that she may have a septic left shoulder joint or left sternoclavicular joint which would extend her therapy to 4-6 weeks. Because of her ongoing and prolific IV drug use, this will have to be done in the hospital. Also, of note, that she is basically homeless, which would be another argument against any sort of outpatient therapy. RECOMMENDATIONS: 1. Continue with high-dose continuous infusion nafcillin. 2. I have ordered additional blood cultures for today. 3. I have ordered CBC and CMP for today. 4. The patient should be seen by Ortho again in followup today, if possible, regarding her left shoulder. 5. Will need to repeat a CT scan of the chest with attention to the sternoclavicular joint. This CT should be done with contrast but will need to wait on that until we are sure that her renal function has returned to normal. 6. The patient's tachycardia, continued tachypneic and mild peripheral edema are all worrisome, and it may be that we will need to refer the patient on for possible tricuspid valve surgery, though I suspect this may be a bit of a tough sell, given her ongoing drug use but, obviously, if she develops worsening congestive failure, that may not be any good option.
[2016-07-20 10:48] LABS: BASOPHILS % (AUTO) 0.2 % (0-3); EOSINOPHILS % (AUTO) 0.4 % (0-5); MONOCYTES % (AUTO) 5.9 % (4-12); Mean Corpuscular Hemoglobin 27.9 pg (27.0-35.0); NEUTROPHILS % (AUTO) 74.8 % (40-74); Platelet Count 246 bil/L (150-400)
[2016-07-20 13:45] LABS: APPEARANCE,URINE HAZY (CLEAR,HAZY); COLOR,URINE STRAW (YELLOW); OCCULT BLOOD,URINE MODERATE (NEGATIVE); PH,URINE 5.5 (5.0-8.0); UROBILINOGEN,URINE NORMAL (NORMAL)
--- NOTE | 2016-07-20 16:36 | NUR ---
Social Work Note: Continued Discharge Planning Data& Assessment: Pt is not medically ready for discharge at this time. Pt may require extensive hospitalization and IV antibiotics per MD in mornings rounds. Pt mother recently found out pt was in the hospital and was at bedside. SW checked in with pt and pt mother at bedside to assess for any unmet needs. SW number written on pt whiteboard. Pt and pt mother deny any needs at this time. SW to continue to follow. Plan: Anticipated long length of stay due to medical complexities. SW to continue to follow and follow up with pt regarding CD assessment when appropriate. SW to continue to follow. BINA Briscoe
--- NOTE | 2016-07-20 16:55 | NUR ---
spiritual care: nurse referral brief introductory visit. explained role and available as needed. Mother Lidya at bedside, introduced herself.
--- NOTE | 2016-07-20 17:13 | NUR ---
Pain management/blood cultures The pt had a hard time with pain management today. After careful explanation, the pt understands the parameters nurses have to administer pain meds, and the pt has agreed to communicate her needs verbally instead of with poor behavior. The pt has agreed to be understanding when she is "maxed out" on dilaudid, and has agreed to "working through the pain" with breathing. / blood cultures came back as positive for staph today. MD srinivasan.
[2016-07-21] VITALS (14 sets, daily range): BP systolic 110–142; BP diastolic 73–89; PULSE 86–126; RESP 22–35; O2SAT 96–100
[2016-07-21] MEDS: Heparin 5,000 Unit/mL Inj SUBQ SCH ×3 (01:08→16:30)
--- NOTE | 2016-07-21 01:50 | NUR ---
IVF/ CVP: IVF initially running @150ml/hr. Pt noted to be extremely edematous. Per report pt was given IV lasix during day shift. Dr. Hallman called and plan on care discussed. NS decreased to 85ml/hr. over the next 3 hrs CVP noted to decreased to 6-7. Dr. Hallman made aware. At bedside to assess pt. IVF increased back to 150ml/hr. BP remains stable with MAP anywhere from 70-80. Sp02 90s on RA.
[2016-07-21] MEDS: Norepineph 8,000 mCg/250 mL NS 8,000 MCG in IV Premix 1 EACH IV SCH (04:06)
[2016-07-21] MEDS: 0.9% Sodium Chloride 1,000 ML IV SCH ×2 (04:06→11:17)
[2016-07-21] MEDS: HYDROmorphone 0.5 mg/0.5 mL iSecure Syringe IVPUSH PRN ×9 (04:21→22:02)
--- NOTE | 2016-07-21 07:37 | PCM.PNMED ---
Subjective Date of Service Jul 21, 2016 Subjective The patient continues to have left shoulder and clavicular sternal pain. She is still somewhat short of breath with a dry cough. No nausea. She has had anorexia. No abdominal pain. 1 fever last night. Exam Vital Signs Vital Sign - Last Date Time Temp Pulse Resp B/P Pulse Ox O2 Delivery O2 Flow Rate FiO2 07/21/16 03:13 36.9 86 25 129/75 99 Room Air 07/16/16 15:32 2.00 Intake and Output 07/20/16 07/20/16 07/21/16 Cumulative From/Thru 15:00 23:00 07:00 07/15/16 18:29 - 07/21/16 05:02 Intake Total 2984 ml 2264 ml 41677 ml Output Total 2200 ml 1500 ml 9825 ml Balance 784 ml 764 ml 13129 ml Intake Oral 920 ml 450 ml 5610 ml IV Total 2064 ml 1814 ml 06335 ml Output Urine Total 2200 ml 1500 ml 9825 ml # Voids 4 # Bowel Movements 0 Exam Grossly edematous. Normal head. Anicteric sclerae. Symmetric pupils lungs with tachypnea, scattered rhonchi otherwise clear Heart is regular without murmur gallop or rub Abdomen is distended but nontender Extremities a 2+ edema. Good pedal and radial pulses. Left shoulder with increased pain with any passive range of motion or anterior palpation. Exquisite tenderness of the left sternoclavicular joint. IVs and Medications Medications Reviewed: Medications were reviewed in detail Lab and Diagnostics Result Diagram: 07/20/16 1030 07/20/16 1030 X-Rays, CTs and MRIs Date of Service: 07/15/16 1840 PROCEDURE: X-RAY CHEST, TWO VIEWS ([id number]) INDICATIONS: fever sob TECHNIQUE: 2 views of the chest were acquired. COMPARISON: [facility], CR, XR CHEST 1VW (PORTABLE), 03/06/2016, 13: 22. FINDINGS: Surgical changes and devices: None. Lungs and pleura: Bilateral lower lobe infiltrates consistent with pneumonia. No pleural effusions or pneumothorax. Mediastinum: Mediastinal contours are normal. Heart size is normal. Bones and chest wall: No suspicious bony abnormalities. Soft tissues appear unremarkable. IMPRESSION: Bilateral lower lobe pneumonia. Dictated by: Sharon Ospina M.D. on 07/15/2016 at 19:50 Approved by: Sharon Ospina M.D. on 07/15/2016 at 19:50 Cardiac Echo Impressions Shows a tricuspid valve vegetation with moderate to severe regurgitation Additional Diagnostics Chest CT reveals multiple pulmonary emboli and small bilateral pleural effusion Assessment & Plan Patient is a 25-year-old IV heroin and meth using female presenting with shortness of breath and chest pain and admitted for severe sepsis with pneumonia and urinary tract infection: 1. Severe sepsis. Present on admission. Active. Improving. -Meets criteria with temp (38.4), HR (132) with organ dysfunction as evidence by creatinine 2.11 and MAP<65. Likely pulmonary or source, possible bacteremia given IVDU -Patient received 2L NS in ED. Ordered another liter NS. Maintain MAP>60 -Pending: blood cultures, MRSA screen -Lactic acid 1.5 The patient has 6 positive blood cultures consistent with endocarditis. There appears to be evidence of staph epidermidis and aureus. An echo was obtained and pending. Infectious diseases been consulting and are managing antibiotics at this point. 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 Acute. Present on admission. Active We will continue vancomycin and Ceftin Earleen per infectious disease. The patient has a CVP of 11. She does have a resting tachycardia even when afebrile. She has significant tricuspid regurgitation and remains at risk for requiring emergent valve replacement. 3. Acute kidney injury. Present on admission. Resolved. Will check labs today. We will continue IV fluids and follow labs. 4. Urinary tract infection. Acute. Present on admission. Resolved. -UA with leukocyte esterase, pyuria, bacteria -Antibiotics as above, follow cultures 5. Elevated D-dimer. Present on admission. Active 6. 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 Discussed with infectious disease. She will likely require extended course of antibiotics. We will reimage the left shoulder with MRI today and contact Dr. Espinal to have him come back and take a second look. 6. Substance abuse. Chronic. Present on admission. Active -Currently uses IV meth and heroin. Has been on Suboxone in the past -Social work referral. There was a question of possible withdrawal. She is normalized her vital signs today and is getting opiates for pain control. This appears not to be an issue. 7. Anemia. No evidence of rectal bleeding. Will run a hemolytic workup and transfuse 2 units of packed red blood cells. 8. FEN. Continue to encourage by mouth intake. May need to use something more aggressive to increase her caloric intake. Pain Evaluation: Adequate Pain Control GI Prophylaxis: Not indicated VTE Prophylaxis: Sub-Q Heparin (Unfractionated) Resuscitation Status: CPR: Attempt Resuscitation Time spent 30 minutes Mitul Barrera MD Jul 21, 2016 07:37
[2016-07-21 08:32] LABS: BASOPHILS % (AUTO) 0.2 % (0-3); EOSINOPHILS % (AUTO) 0.6 % (0-5); MONOCYTES % (AUTO) 7.2 % (4-12); Mean Corpuscular Hemoglobin 28.6 pg (27.0-35.0); Mean Corpuscular Volume 87.6 fL (81-100); NEUTROPHILS % (AUTO) 66.7 % (40-74); Platelet Count 186 bil/L (150-400)
--- NOTE | 2016-07-21 09:09 | PROG NOTE ---
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 INTERVAL HISTORY: Overnight, the patient has had a single fever. She no longer has as much shortness of breath or pleuritic chest pain, which is an improvement, but still has severe left shoulder pain as well as left clavicular and sternoclavicular pain. She has no GI symptoms. The patient is quite anxious about her situation and we again discussed the gravity of the situation and the need for additional testing studies, prolonged hospital stay, and the need to avoid intravenous drugs for the rest of her life. PHYSICAL EXAMINATION: Reveals a woman who is afebrile now 36.9, but who spiked to 38 degrees orally about midnight. Her pulse is currently 86 and this is almost the first time her pulse has been below 100 in this admission. Respiratory rate still in the low 20s, blood pressure 129/75. She is saturating well on room air as always. The patient's mental status is clear. Head: Eyes without conjunctival hemorrhages. Oral cavity without palatal petechia. There is tenderness along the left sternoclavicular joint which extends actually along the clavicle almost to the shoulder. The patient still refuses to move or allow examination of the left shoulder. The left forearm and hand moves well, but there is some swelling to the left upper extremity diffusely. The patient's lungs are notable for some crackles at both bases. Cardiac tones still without murmur. Abdomen benign. No peripheral stigmata of endocarditis. LABORATORIES: I just order the labs from this morning so we have no new results. Yesterday's white count was 17. Yesterday's creatinine 1.2. Of great concern is the blood cultures. The patient initially had blood cultures done on July 15 and , which were positive for methicillin sensitive Staph aureus. Followup blood cultures done July 19 unfortunately have all grown Staph aureus once again. Repeat from July 20 are pending and negative at 20 hours. We have no recent imaging. IMPRESSION: This is an extremely worrisome case of a young woman who is been injecting intravenous drugs and presents with high-grade Staph aureus bacteremia. We know without question that she has tricuspid endocarditis with septic pulmonary emboli. An initial MRI scan of the shoulder done without contrast because of renal insufficiency on admission, did not show evidence of septic joint. An orthopedic valuation consultant who saw the patient four or five days ago, did not see evidence of septic joint. However, her shoulder has failed to improve and we need to revisit these with repeat MRI scans as well as repeat ortho evaluation. There is also concern for possible left sternoclavicular joint infection. Another concern in this patient is that a PICC line was inserted in the ER because she has absolutely no venous access. This was inserted in the presence of a high-grade Staph aureus bacteremia and it is certainly possible that the PICC line is now playing a role in her persistent bacteremia, though I think it is fairly unlikely at this point. The patient is currently receiving nafcillin 12 g a day for this methicillin sensitive Staph aureus. Recent ID assay guidelines suggest not to use gentamicin in a case such as this though that was formally of course our practice. If the staph bacteremia continues, the patient will need to be considered for valve replacement if we do not find any other focal source of this constant Staph bacteremia, such as left septic joint, sternoclavicular joint or some other area that can be drained. RECOMMENDATIONS: 1. Repeat blood cultures x2 today and daily until we get negative blood cultures. 2. I ordered CBC and CMP as well as a BNP today. 3. MRI of the left shoulder was ordered yesterday but it has not yet been done. I anticipate this will be done today and it should be done with contrast. 4. Repeat orthopedic involvement has been requested. 5. CT scan with contrast of the chest and sternoclavicular joint is indicated. 6. An ultrasound of the left upper extremity will be done as I think there is now some asymmetry and the size of her upper extremities and I wonder if the continued immobility of the left upper extremity could be producing a problem. 7. I will continue to closely follow this patient who is increasingly worrisome given her persistent tachycardia, intermittent fevers and persistent positive blood cultures.
[2016-07-21] MEDS: Nafcillin Inj 12,000 MG in Dextrose 5% 1,000 ML IV SCH (11:18)
--- NOTE | 2016-07-21 11:35 | DRSVH ---
PROCEDURE: US VENOUS ARM DUPLEX UNILATERAL, LEFT INDICATIONS: 25 year-old female with possible left upper extremity deep venous thrombosis. TECHNIQUE: Real-time imaging, as well as color and pulse Doppler interrogation, was performed of the left upper extremity deep veins from the inferior neck to the antecubital fossa. COMPARISON: [facility], US, US VENOUS ARM DPLX BILAT, 03/07/2016, 12:38. FINDINGS: Examination is limited due to lack of patient cooperation, as well as patient discomfort. The internal jugular vein, visualized portions of the subclavian vein, axillary, and brachial veins a re free of intraluminal thrombus. Where physically possible, the veins are normally compressible. C olor and pulse Doppler demonstrate normal intraluminal flow, with expected phasicity and pulsatility. Additional scanning of the cephalic and basilic veins of the superficial system demonstrate normal compressibility, without thrombus. There is diffuse overlying subcutaneous edema. IMPRESSION: No sonographic evidence for left upper extremity deep venous thrombosis. Dictated by: Lance Dan M.D. on 07/21/2016 at 11:33 Approved by: Lance Dan M.D. on 07/21/2016 at 11:33
[2016-07-21] MEDS: 0.9% Sodium Chloride 250 ML IV SCH (14:15)
--- NOTE | 2016-07-21 14:29 | NUR ---
Fever/ HR Fever noted at 1415 and 975mg Tylenol given. HR this morning was around 100 and its 1430 and HR is trending up to 129. MD will be notified. Addendum: 07/21/16 at 1548 by WILLIS TARIQ RN Discussed with and he said to continue to monitor. HR usually increases with a temp for this pt. Gave cold wash cloth and turned on fan as well as took off a few blankets.
--- NOTE | 2016-07-21 15:21 | NUR ---
NUTRITION FOLLOW-UP: ASSESS: 25 YO female admitted with shortness of breath, chest pain, PRISCILA, pneumonia, and UTI. Found to have endocarditis with septic pulmonary emboli. Pt is currently on a general diet with poor PO intake, which pt reports is because she gets too tired to chew food and it can be difficult for her to breathe while eating. Pt thinks that she would be able to better tolerate softer foods. Pts wt has increased 20kg since admit PMHx: Homelessness, IV heroin and meth use, seizure disorder, UTI's, pyelonephritis, smoking, gonorrhea. DIET: General. PO refused-25% LABS: Reviewed. K 3.4, Cl 110, Engineering Consultant 1.10, Ca 7.0, Alb 1.4 MEDICATIONS: Reviewed. GI symptoms / stool: 0 BM yet Skin Integrity: Hemanth 18 ANTHROPOMETRICS: Current Wt: 80.2kg BMI: 32.3 kg/m2. Admit wt 60kg ESTIMATED NEEDS: based of admit wt Calories: 1500 - 1800 kcal (25 - 30 kcal / kg BW) Protein: 72-90 g protein (0.8 - 1.0 g / kg BW) NUTRITION DIAGNOSIS: 1) Inadequate oral intake related to weakness and respiratory distress as evidence by PO refused-25% and pt reporting weakness and difficulty chewing dry/hard foods. 2) Altered nutrition-related labs related to acute kidney injury, as evidenced by elevated BUN, creatinine.--IMPROVING INTERVENTION: 1) Spoke with pt about softer foods that she may be able to eat easier. Pt agreed to have cottage cheese with fruit sent on all trays and Magic Cup on all trays. 2) Will add Soft to diet line so pt receives only soft foods. 3) Pt does not like Su[place]ena so will stop sending supplement MONITOR/EVALUATE: Diet, PO intake, labs, GI/nutrition status. Follow up per high nutrition risk guidelines. Addendum: 07/21/16 at [address] protein: 72-90g/day (1.2-1.5g/kg)
--- NOTE | 2016-07-21 16:47 | NUR ---
OFF UNIT Pt off unit for MRI. Vitals stable, ST 120 and a temp of 38.0. site damage prevention technician aware. 1mg Dilaudid given at 1615 and 1mg Ativan given at 1640 right before she left.
[2016-07-21 21:22] LABS: Mean Corpuscular Hemoglobin 27.6 pg (27.0-35.0)
[2016-07-22] VITALS (10 sets, daily range): BP systolic 115–132; BP diastolic 67–84; PULSE 73–109; RESP 18–31; O2SAT 97–99
[2016-07-22] MEDS: HYDROmorphone 0.5 mg/0.5 mL iSecure Syringe IVPUSH PRN ×10 (00:03→21:56)
[2016-07-22] MEDS: Heparin 5,000 Unit/mL Inj SUBQ SCH ×3 (00:04→16:35)
[2016-07-22 04:02] LABS: BASOPHILS % (AUTO) 0.1 % (0-3); EOSINOPHILS % (AUTO) 1.4 % (0-5); MONOCYTES % (AUTO) 6.5 % (4-12); Mean Corpuscular Hemoglobin 27.9 pg (27.0-35.0); Mean Corpuscular Volume 84.8 fL (81-100); NEUTROPHILS % (AUTO) 67.1 % (40-74); Platelet Count 178 bil/L (150-400)
[2016-07-22] MEDS: 0.9% Sodium Chloride 1,000 ML IV SCH (04:27)
[2016-07-22] MEDS ORDERED: KCl 40 mEq/100 mL Premix (K 3 - 3.7 & Creat < 2) IV ONE (05:35)
[2016-07-22] MEDS ORDERED: Furosemide 10 mg/mL 4 mL Inj IVPUSH ONE (05:55)
--- NOTE | 2016-07-22 06:17 | NUR ---
Hemaglobin / Hematocrit / Low Potassium P: Pt received 2 units PRBCs on 07/21/16, follow up CBC showed H/H of 7.7 and 24.0. I: MD notified and new order for a 3rd unit of PRBCs to be transfused tonight. E: Follow up AM Labs ordered, H/H now 9.0 and 27.4. P: Potassium level of 3.1 this AM. I: Magnesium, Potassium repletion orders initiated E: IV Potassium Guillermo of 40 mEq currently infusing per protocol. Repeat Potassium level ordered for 1000 today.
--- NOTE | 2016-07-22 06:52 | NUR ---
Respiratory Pt developed crackles and course breath sounds early this AM. RA sats continue in the 98-100%. No s/sx of respiratory distress. notified and new order for IV Lasix 40 mg and was administered. Pt has Neff in, waiting for Pt to start to diurese.
--- NOTE | 2016-07-22 08:37 | DRSVH ---
PROCEDURE: MRI SHOULDER LEFT WITHOUT CONTRAST ([id number]) INDICATIONS: 25 year-old female with history of IV drug use with shoulder pain presenting for evaluat ion of possible septic joint. TECHNIQUE: Noncontrast oblique coronal T2 fast spin echo with fat saturation, oblique sagittal T1 spin echo and T2 fast spin echo with fat saturation, axial T1 spin echo and T2 fast spin echo with fat saturation t hrough the shoulder. COMPARISON: [facility], MR, MR SHOULDER LT WO CON, 07/16/2016, 14:45. FINDINGS: Image quality: Exam of limited diagnostic utility due to marked motion artifact. There is also assoc iated inhomogeneous fat saturation markedly limiting evaluation. Rotator cuff: No definite full-thickness rotator cuff tear. Bones and bursae: No definite abnormal bone marrow edema or cortical erosions within the visualized osseous structures to suggest osteomyelitis, although evaluation of the acromion is nondiagnostic. T here is irregularity of the anteroinferior and inferior glenoid suggesting sequelae of a prior fractu re possibly due to anterior shoulder dislocation. There is slight flattening of the posterior piotr l head with no discrete engaging Hill-Sachs lesions. There is a small glenohumeral joint effusion sl ightly increased in the axillary pouch compared to the prior study. Capsule and soft tissues: In the absence of intra-articular contrast as well as the presence of vlad ed motion artifact limiting evaluation, the labrum and glenohumeral ligaments appear grossly intact. There is thickening of the anteroinferior labroligamentous complex which is not well evaluated. The long head of the biceps tendon demonstrates normal location and morphology. There is extensive subc utaneous edema redemonstrated as well as edema tracking between the visualized periarticular musculat ure. This includes subdeltoid edema tracking along the lateral aspect of the proximal humerus. No d efinite abscess collection identified in the absence of intravenous contrast. IMPRESSION: 1. Markedly limited study due to extensive motion artifact. 2. Small glenohumeral joint effusion, slightly increased in the axillary pouch compared to the prior study. Finding is nonspecific but given history of infection, septic arthritis cannot be excluded. 3. No definite evidence of osteomyelitis. 4. Extensive subcutaneous edema, increased from the prior study, as well as edema tracking between t he visualized periarticular musculature suggestive of myositis. This includes prominent edema tracki ng deep to the deltoid muscle along the lateral aspect of the humeral head as well as along the super ficial aspect of the deltoid. 5. No definite abscess identified given limitations of the study. Dictated by: Sulaiman Haines M.D. on 07/22/2016 at 8:36 Approved by: Sulaiman Haines M.D. on 07/22/2016 at 8:36
[2016-07-22] MEDS: 0.9% Sodium Chloride 250 ML IV SCH (10:15)
[2016-07-22] MEDS: Nafcillin Inj 12,000 MG in Dextrose 5% 1,000 ML IV SCH (10:15)
[2016-07-22] MEDS ORDERED: KCl 40 mEq/D5W 500 mL 40 MEQ in IV Premix 1 EACH IV ONE (11:25)
[2016-07-22] MEDS ORDERED: Furosemide 10 mg/mL 2 mL Inj IVPUSH ONE (11:25)
--- NOTE | 2016-07-22 13:01 | PCM.PNORTH ---
Subjective Date of Service: Jul 22, 2016 Visit Information: Reason for Visit Pneumonia, Ivda, Sepsis Surgery/Surgery Date Post-Op Day # Date of Admission: Jul 15, 2016 at 23:32 Hospital Day # Subjective The patient continues to voice left shoulder girdle and upper extremity discomfort. Discomfort overall has improved from admission and with IV antibiotic therapy for her pneumonia, endocarditis and septicemia. Patient able to passively move her shoulder more across her body and with shoulder rotation. Patient underwent another left shoulder MRI scan yesterday. Objective Exam Objective Imaging Patient Name: RAJANI ALSTON MR#: [id number] Location: [facility] Ordering Phys: Mitul Barrera MD Date of Service: 07/21/16 0737 PROCEDURE: MRI SHOULDER LEFT WITHOUT CONTRAST ([id number]) INDICATIONS: 25 year-old female with history of IV drug use with shoulder pain presenting for evaluation of possible septic joint. TECHNIQUE: Noncontrast oblique coronal T2 fast spin echo with fat saturation, oblique sagittal T1 spin echo and T2 fast spin echo with fat saturation, axial T1 spin echo and T2 fast spin echo with fat saturation through the shoulder. COMPARISON: [facility], MR, MR SHOULDER LT WO CON, 07/16/2016, 14: 45. FINDINGS: Image quality: Exam of limited diagnostic utility due to marked motion artifact. There is also associated inhomogeneous fat saturation markedly limiting evaluation. Rotator cuff: No definite full-thickness rotator cuff tear. Bones and bursae: No definite abnormal bone marrow edema or cortical erosions within the visualized osseous structures to suggest osteomyelitis, although evaluation of the acromion is nondiagnostic. There is irregularity of the anteroinferior and inferior glenoid suggesting sequelae of a prior fracture possibly due to anterior shoulder dislocation. There is slight flattening of the posterior humeral head with no discrete engaging Hill-Sachs lesions. There is a small glenohumeral joint effusion slightly increased in the axillary pouch compared to the prior study. Capsule and soft tissues: In the absence of intra-articular contrast as well as the presence of marked motion artifact limiting evaluation, the labrum and glenohumeral ligaments appear grossly intact. There is thickening of the anteroinferior labroligamentous complex which is not well evaluated. The long head of the biceps tendon demonstrates normal location and morphology. There is extensive subcutaneous edema redemonstrated as well as edema tracking between the visualized periarticular musculature. This includes subdeltoid edema tracking along the lateral aspect of the proximal humerus. No definite abscess collection identified in the absence of intravenous contrast. IMPRESSION: 1. Markedly limited study due to extensive motion artifact. 2. Small glenohumeral joint effusion, slightly increased in the axillary pouch compared to the prior study. Finding is nonspecific but given history of infection, septic arthritis cannot be excluded. 3. No definite evidence of osteomyelitis. 4. Extensive subcutaneous edema, increased from the prior study, as well as edema tracking between the visualized periarticular musculature suggestive of myositis. This includes prominent edema tracking deep to the deltoid muscle along the lateral aspect of the humeral head as well as along the superficial aspect of the deltoid. 5. No definite abscess identified given limitations of the study. Dictated by: Sulaiman Haines M.D. on 07/22/2016 at 8:36 Approved by: Sulaiman Haines M.D. on 07/22/2016 at 8:36 Vital Signs and I/O Vital Sign - Last Date Time Temp Pulse Resp B/P Pulse Ox O2 Delivery O2 Flow Rate FiO2 07/22/16 11:28 36.8 104 28 128/84 98 Room Air 07/16/16 15:32 2.00 Intake and Output 07/21/16 07/21/16 07/22/16 Cumulative From/Thru 15:00 23:00 07:00 07/15/16 18:29 - 07/22/16 06:11 Intake Total 3642 ml 1990 ml 69874 ml Output Total 1400 ml 1100 ml 66286 ml Balance 2242 ml 890 ml 84139 ml Intake Oral 850 ml 461 ml 6921 ml IV Total 2163 ml 1193 ml 13144 ml Packed Cells 629 ml 336 ml 965 ml Output Urine Total 1400 ml 1100 ml 92836 ml # Voids 4 # Bowel Movements 0 0 Lab & Micro Results Laboratory Tests Test 07/21/16 21:17 07/22/16 03:45 07/22/16 10:00 White Blood Count 9.9th/mm3 (3.8-10.1) 9.9th/mm3 (3.8-10.1) Red Blood Count 2.79mil/mm3 (3.90-5.20) 3.23mil/mm3 (3.90-5.20) Hemoglobin 7.7g/dL (12.0-15.6) 9.0g/dL (12.0-15.6) Hematocrit 24.0% (35.0-46.0) 27.4% (35.0-46.0) Mean Corpuscular Volume 86.0fL (81-100) 84.8fL (81-100) Mean Corpuscular Hemoglobin 27.6pg (27.0-35.0) 27.9pg (27.0-35.0) Mean Corpuscular Hemoglobin Concent 32.1% (32.0-37.0) 32.8% (32.0-37.0) Red Cell Distribution Width 13.6% (12.3-15.4) 14.0% (12.3-15.4) Platelet Count 181bil/L (150-400) 178bil/L (150-400) Neutrophils (%) (Auto) 67.1% (40-74) Lymphocytes (%) (Auto) 24.4% (14-46) Monocytes (%) (Auto) 6.5% (4-12) Eosinophils (%) (Auto) 1.4% (0-5) Basophils (%) (Auto) 0.1% (0-3) Sodium Level 138mEq/L (134-144) Potassium Level 3.1mEq/L (3.5-5.2) 3.1mEq/L (3.5-5.2) Chloride Level 109mEq/L (97-108) Carbon Dioxide Level 20mmol/L (18-29) Blood Urea Nitrogen 7mg/dL (6-20) Creatinine 1.08mg/dL (0.57-1.00) Estimat Glomerular Filtration Rate 90mL/min (>59) Glucose Level 111mg/dL (60-99) Calcium Level 7.1mg/dL (8.5-10.1) Microbiology 07/21/16 Blood Culture - Preliminary, Resulted NO GROWTH AFTER 24 HOURS 07/16/16 Adenovirus DNA (PCR) - Final, Complete Not Detected 07/16/16 Coronavirus 229E PCR - Final, Complete Not Detected 07/16/16 Coronavirus HKU1 PCR - Final, Complete Not Detected 07/16/16 Coronavirus NL63 PCR - Final, Complete Not Detected 07/16/16 Coronavirus OC43 PCR - Final, Complete Not Detected 07/16/16 Influenza Type A (PCR) - Final, Complete Not Detected 07/16/16 Influenza Type B (PCR) - Final, Complete Not Detected 07/16/16 Human Metapneumovirus (PCR) (GAMALIEL) - Final, Complete Not Detected 07/16/16 Rhinovirus (PCR)(GAMALIEL) - Final, Complete Not Detected 07/16/16 Parainfluenza Virus Type 1 (PCR) - Final, Complete Not Detected 07/16/16 Parainfluenza Virus Type 2 (PCR) - Final, Complete Not Detected 07/16/16 Parainfluenza Virus Type 3 (PCR) - Final, Complete Not Detected 07/16/16 Parainfluenza Virus Type 4 (NAAT) - Final, Complete Not Detected 07/16/16 Respiratory Syncytial Virus (PCR)AZ - Final, Complete Not Detected 07/16/16 Chlamydia pneumoniae (PCR) - Final, Complete Not Detected 07/16/16 Mycoplasma pneumoniae DNA Detection - Final, Complete 07/15/16 Urine Culture - Final, Complete Mixed Urogenital Jennifer Result Diagram: 07/22/16 0345 07/22/16 1000 Extremities: Other (left shoulder girdle and upper extremity: No obvious deformity or swelling. Mild generalized erythema? Passive rotation with the upper extremity adductor did improved from initial exam. Patient hesitant to allow for passive forward flexion or adduction. Discomfort nonfocal.) Assessment & Plan Impression Right shoulder girdle and upper extremity pain not likely septic arthritis or osteomyelitis. No abscess noted on MRI. Nonspecific subcutaneous edema and myositis noted on most recent shoulder MRI, otherwise minimal change and no indication for surgical intervention. With ongoing cardiac and pulmonary source of irritation, wondering if a component of this shoulder girdle discomfort could be referred pain? No surgical recommendation. Expectant observation with infection management recommended. Problems: VTE Prophylaxis: Sub-Q Heparin (Unfractionated) Resuscitation Status: CPR: Attempt Resuscitation Cristian Espinal MD Jul 22, 2016 13:01
--- NOTE | 2016-07-22 13:29 | PCM.PNMED ---
Subjective Date of Service Jul 22, 2016 Subjective She is still having a dry cough. Some dyspnea. She notes she feels very swollen and edematous and that the water weight is making her feel bad. Her left shoulder continues to hurt, mostly anterior. This increases with any movement. No abdominal pain. She does have anorexia. No bowel movement. Exam Vital Signs Vital Sign - Last Date Time Temp Pulse Resp B/P Pulse Ox O2 Delivery O2 Flow Rate FiO2 07/22/16 11:28 36.8 104 28 128/84 98 Room Air 07/16/16 15:32 2.00 Intake and Output 07/21/16 07/21/16 07/22/16 Cumulative From/Thru 15:00 23:00 07:00 07/15/16 18:29 - 07/22/16 06:11 Intake Total 3642 ml 1990 ml 34562 ml Output Total 1400 ml 1100 ml 58946 ml Balance 2242 ml 890 ml 94741 ml Intake Oral 850 ml 461 ml 6921 ml IV Total 2163 ml 1193 ml 91810 ml Packed Cells 629 ml 336 ml 965 ml Output Urine Total 1400 ml 1100 ml 92289 ml # Voids 4 # Bowel Movements 0 0 Exam Alert oriented, generalized anasarca including the face and arms and legs. Flat affect, listhesis Anicteric sclerae. Lungs are clear Heart is regular without murmur Abdomen is soft nondistended. Extremities for significant edema. She has had tenderness in the left sternoclavicular joint unchanged Palpation of the anterior shoulder is all tender but there is no warmth, redness or swelling. IVs and Medications Medications Reviewed: Medications were reviewed in detail Lab and Diagnostics Result Diagram: 07/22/16 0345 07/22/16 1000 Cardiac Echo Impressions Shows a tricuspid valve vegetation with moderate to severe regurgitation Assessment & Plan Patient is a 25-year-old IV heroin and meth using female presenting with shortness of breath and chest pain and admitted for severe sepsis with pneumonia and urinary tract infection: 1. Severe sepsis. Present on admission. Active. Improving. 2. 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 Acute. Present on admission. Active The patient continues to not sterilize her cultures. This continues to be concerning. She also has severe tricuspid regard regurgitation by echo. She will likely need a serial echo the next several days. 3. Acute kidney injury. Present on admission. Resolved. We will stop IV fluids at this point. 4. Urinary tract infection. Acute. Present on admission. Resolved. 5. Generalized anasarca, fluid overload. We will begin to diurese her today with Lasix 20 IV 1 6. 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 We will repeat CT chest with IV contrast in the next 1 or 2 days. Her previous scan showed no signal changes in the joint. 7. Left shoulder pain. Initial MRI revealed some possible soft tissue swelling of the anterior shoulder and a trace effusion. She did have a second MRI last night, July 21. There is motion artifact but the wet read was negative for joint effusion or fluid collection. There is a musculoskeletal radiology second read pending. Did attempt to contact orthopedics yesterday we will reattempt today to have them come by and reviewed the shoulder again. 6. Substance abuse. Chronic. Present on admission. Active -Currently uses IV meth and heroin. Has been on Suboxone in the past -Social work referral. There was a question of possible withdrawal. She is normalized her vital signs today and is getting opiates for pain control. This appears not to be an issue. 7. Anemia. No evidence of rectal bleeding. Negative hemolytic workup, she did get 2 units of packed red blood cells with a stable hematocrit today. 8. FEN. Continue to encourage by mouth intake. May need to use something more aggressive to increase her caloric intake. Pain Evaluation: Adequate Pain Control GI Prophylaxis: Not indicated VTE Prophylaxis: Sub-Q Heparin (Unfractionated) Resuscitation Status: CPR: Attempt Resuscitation Time spent 30 minutes Mitul Barrera MD Jul 22, 2016 13:29 7. Left shoulder pain. Initial MRI revealed some possible soft tissue swelling of the anterior shoulder and a trace effusion. She did have a second MRI last night, July 21. There is motion artifact but the wet read was negative for joint effusion or fluid collection. There is a musculoskeletal radiology second read pending. Did attempt to contact orthopedics yesterday we will reattempt today to have them come by and reviewed the shoulder again. 6. Substance abuse. Chronic. Present on admission. Active -Currently uses IV meth and heroin. Has been on Suboxone in the past -Social work referral. There was a question of possible withdrawal. She is normalized her vital signs today and is getting opiates for pain control. This appears not to be an issue. 7. Anemia. No evidence of rectal bleeding. Negative hemolytic workup, she did get 2 units of packed red blood cells with a stable hematocrit today. 8. FEN. Continue to encourage by mouth intake. May need to use something more aggressive to increase her caloric intake. Pain Evaluation: Adequate Pain Control GI Prophylaxis: Not indicated VTE Prophylaxis: Sub-Q Heparin (Unfractionated) Resuscitation Status: CPR: Attempt Resuscitation Time spent 30 minutes Mitul Barrera MD Jul 22, 2016 13:29
--- NOTE | 2016-07-22 14:26 | PROG NOTE ---
[address] [address] PROGRESS NOTE PATIENT: RAJANI ALSTON : 1990 MR#: [id number] ADMIT: 07/15/2016 JOB ID: [id number] DATE: 07/22/2016 INFECTIOUS DISEASE FOLLOW UP NOTE: REASON FOR FOLLOWUP: MSSA tricuspid endocarditis with bilateral septic pulmonary emboli, left shoulder infection and possible left sternoclavicular joint infection due to IV drug use. INTERVAL HISTORY: The patient reports today that she has been free of fevers, chills, but otherwise continues to feel weak and terrible. She notes that she is short of breath even lying in bed, and has bilateral pleuritic chest pain with deep inspiration. In addition, she notes her left shoulder and left sternoclavicular joints both continue to be extremely painful with any motion or touch. She has been really unable to get out of bed and states she feels grossly edematous due to her fluid overload. PHYSICAL EXAMINATION: Reveals a woman who is now afebrile 36.8, but she was febrile to 38 again during the night which is worrisome. Pulse 104, respiratory rate in the 20s, blood pressure 128/84. She is saturating well on room air. Examination of the mental status reveals it to be clear though as always the patient is quite groggy, but she does rouse and she can answer questions in a very flat monotone depressed voice. Eyes without conjunctivitis. Lungs: A few crackles at the bases. Cardiac tones without any significant murmur. Abdomen without change. Soft and nontender. She has considerable third-spacing and peripheral edema but no cellulitis is seen. The patient is still unwilling to move the left shoulder though she has more motion around the left forearm. She still has a very tender left sternoclavicular joint. LABORATORIES: Include white count 9900, which is the same as yesterday. Normal differential. Her crit is up because she got 2 units of blood. It is now 27. Creatinine 1.08 which continues to slowly improve. LFTs normal. Hep C and HIV negative. Follow up blood cultures from the are negative as well as from yesterday the . Recall that all the blood cultures from admission until July 19 were unfortunately positive for MSSA. The MRI scan of the shoulder done early this morning showed a small glenohumeral joint effusion which was nonspecific but septic arthritis could not be excluded on this basis. There was no osteo. There was extensive subcutaneous edema suggestive of myositis. There was extensive subcutaneous edema and apparent myositis in the area of the deltoid. The orthopedic medical economics consultant saw the patient after the MRI scan and did not feel she had a septic joint, osteo or any reason for surgical intervention. The venous Doppler of the left upper extremity I ordered yesterday out of concern that her left arm was swollen turned out to be negative for DVT. IMPRESSION: This is a very worrisome case of a young woman who uses intravenous opiates who presented with tricuspid endocarditis with multiple septic pulmonary emboli. She has had positive blood cultures over the course of several days before they apparently turned negative though we await the final results on the cultures done two days ago. Her course has been marked by profound weakness to the point she really has not left bed since she has been admitted as well as severe left sternoclavicular joint pain, left shoulder pain and pleuritic chest pain due to septic emboli. At a minimum, the patient will require four weeks of therapy and I am not certain that this will not be an indication for six weeks. I also remain concerned that she does have some degree of congestive heart failure as evidenced by her elevated BNP and her development of edema and fluid overload. I also remain concerned about her left shoulder though I am reassured somewhat by the MRI and ortho opinion. It seems likely that the shoulder pain is due to myositis and subcutaneous infection rather than actual outright septic joint and osteo which is, of course, much better for her. The possibility of a sternoclavicular abscess or septic joint also exists and I think we will need to move to exclude that as well. RECOMMENDATIONS: 1. Will continue with the high-dose nafcillin she is receiving. 2. We await the follow up blood cultures and hope they are all negative. 3. The patient still needs a JOÃO and we should probably move to get that done fairly soon. 4. A CT of the chest with contrast and attention to the sternoclavicular joint is probably indicated as our initial CT scan did not have contrast because of concern about her renal function which has now improved.
--- NOTE | 2016-07-22 18:13 | NUR ---
Pain/Fever Patient c/o L shoulder pain6-02/24. PRN helps with the pain but does not relieve it completely. Patient spiked temp of 38.8 this afternoon. PRN tylenol given. Temp came down to 37.1 , patient is still diaphoretic and c/o feeling hot. MD notified.
[2016-07-22] MEDS: lamoTRIgine 100 mg Tablet PO SCH (21:55)
[2016-07-23] MEDS: HYDROmorphone 0.5 mg/0.5 mL iSecure Syringe IVPUSH PRN ×6 (01:59→13:44)
[2016-07-23] MEDS: Heparin 5,000 Unit/mL Inj SUBQ SCH ×3 (02:00→16:44)
[2016-07-23 04:00] VITALS: BP 134/79; PULSE 102; RESP 24; O2SAT 98
[2016-07-23 04:43] LABS: Mean Corpuscular Hemoglobin 27.8 pg (27.0-35.0); Mean Corpuscular Volume 85.4 fL (81-100)
[2016-07-23 04:53] VITALS: PULSE 120
[2016-07-23] MEDS: 0.9% Sodium Chloride 1,000 ML IV SCH (05:11)
[2016-07-23] MEDS ORDERED: Potassium Chloride Oral 20 mEq SR Tab(K 3 - 3.7 & Creat < 2) PO ONE (05:35)
--- NOTE | 2016-07-23 06:06 | NUR ---
Pain/Transfer Pt c/o of pain 8-10/10 in left shoulder. Administered 1 mg IV Dilaudid x3 this shift. Pt was able to rest more this shift than previous shifts per pt. VSS and Tele SR/T 90's to 110's. Pt was transferred to [id number], report was given to Aniya SESAY. Addendum: 07/23/16 at 0634 by AVEL YUAN RN pt arrived from [facility] to [facility] # [id number] approx at 0445. VSS. Pt continues to C/O left shoulder pain. No vert complications noted.
[2016-07-23 08:00] VITALS: PULSE 102
[2016-07-23] MEDS: lamoTRIgine 100 mg Tablet PO SCH ×2 (09:01→20:53)
[2016-07-23 09:57] VITALS: BP 128/84; PULSE 112; RESP 20; O2SAT 96
[2016-07-23] MEDS: Nafcillin Inj 12,000 MG in Dextrose 5% 1,000 ML IV SCH (11:25)
[2016-07-23] MEDS: 0.9% Sodium Chloride 250 ML IV SCH (11:27)
--- NOTE | 2016-07-23 14:42 | NUR ---
Sent referral to [facility], looking to see if patient will meet criteria. Updated QUALITY CONTROL MICROBIOLOGIST QUALITY CONTROL MICROBIOLOGIST supervisory aide
--- NOTE | 2016-07-23 14:56 | NUR ---
NUTRITION FOLLOW-UP: ASSESS: 25 YO female admitted with shortness of breath, chest pain, PRISCILA, pneumonia, and UTI. Found to have endocarditis with septic pulmonary emboli. Pt's wt has increased 23 kg since admit fluid overload. Pt's diet changed to soft. Pt states her appetite is improving and would like the current snacks to continue. PMHx: Homelessness, IV heroin and meth use, seizure disorder, UTI's, pyelonephritis, smoking, gonorrhea. DIET: Soft. PO refused-25% LABS: Reviewed. K 3.4, Cr 1.09, Glu 113, Ca 7.1, Albumin 1.5 MEDICATIONS: Reviewed. GI symptoms / stool: No BM recorded Skin Integrity: Hemanth 15 ANTHROPOMETRICS: Current Wt: 83.5 kg BMI: 33.7 kg/m2. Admit wt 60 kg (BMI: 24.2 kg/m2) ESTIMATED NEEDS: based of admit wt Calories: 1500 - 1800 kcal (25 - 30 kcal / kg) Protein: 72-90g/day (1.2-1.5g/kg) NUTRITION DIAGNOSIS: 1) Inadequate oral intake related to weakness and respiratory distress as evidence by PO refused-25% and pt reporting weakness and difficulty chewing dry/hard foods.--PERSISTS 2) Altered nutrition-related labs related to acute kidney injury, as evidenced by elevated BUN, creatinine.--IMPROVED INTERVENTION: 1) Will continue snacks as ordered MONITOR/EVALUATE: Diet, PO intake, labs, GI/nutrition status. Follow up per high nutrition risk guidelines.
[2016-07-23 16:00] VITALS: BP 119/78; PULSE 118; O2SAT 93
--- NOTE | 2016-07-23 18:00 | NUR ---
Behavior Pt had several outbursts today. Pt was upset that her Neff cath was taken out and stated " I am just going to wet the bed then" and then started wailing and crying. Pt was also upset that her IV Dilaudid was stopped. She did not want her IV Dilaudid discontinued and began crying loudly regarding her pain medications. Pt did get OOB with RN help after a lot of encouraging and coaxing as patient has very little desire to help herself. Pt stated that she was depressed. Educated patient on the importance of getting up and getting moving as she needs to open her airways up. Pt has little desire to get out of bed
--- NOTE | 2016-07-23 18:58 | PCM.PNMED ---
Subjective Date of Service Jul 23, 2016 Subjective Patient is resting up in her chair, somewhat lethargic and sliding down the chair. She complains of ongoing pain, shoulder pain and chest discomfort. She has been getting IV Dilaudid as well as by mouth oxycodone. No shortness of breath, abdominal pain, nausea vomiting diarrhea Exam Vital Signs Vital Sign - Last Date Time Temp Pulse Resp B/P Pulse Ox O2 Delivery O2 Flow Rate FiO2 07/23/16 16:00 38.6 118 119/78 93 Room Air 07/23/16 09:57 20 Intake and Output 07/22/16 07/22/16 07/23/16 Cumulative From/Thru 15:00 23:00 07:00 07/15/16 18:29 - 07/23/16 05:57 Intake Total 2140 ml 1218 ml 19668 ml Output Total 4850 ml 1800 ml 45182 ml Balance -2710 ml -582 ml 28572 ml Intake Oral 480 ml 690 ml 8091 ml IV Total 1660 ml 528 ml 29469 ml Packed Cells 965 ml Output Urine Total 4850 ml 1800 ml 06030 ml # Voids 4 # Bowel Movements 0 Exam General: Alert, but somnolent, NAD Head: Normocephalic, atraumatic Eyes: RUCHI, EOMI, no scleral Icterus Chest: clear to auscultation B/L, no wheezing rales or rhonchi Heart: Mild tachycardia. Normal S1, S2, no murmurs noted Abdomen: soft, non-tender. Bowel sounds are normoactive. No guarding or rebound. Extremities: no cyanosis, clubbing or edema. IVs and Medications Medications Reviewed: Medications were reviewed in detail Lab and Diagnostics Result Diagram: 07/23/16 0429 07/23/16 1030 Cardiac Echo Impressions Shows a tricuspid valve vegetation with moderate to severe regurgitation Assessment & Plan Patient is a 25-year-old IV heroin and meth using female presenting with shortness of breath and chest pain and admitted for severe sepsis with pneumonia and urinary tract infection. She was diagnosed with endocarditis. 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 Acute. Present on admission. Active -The patient continues to have positive cultures. She also has severe tricuspid regurgitation by echo. -I discussed the patient with cardiology who agreed to evaluate her for possible JOÃO tomorrow Acute kidney injury. Present on admission. Resolved. -Initially treated with IV fluids. These have been stopped Urinary tract infection. Acute. Present on admission. -Resolved. Generalized anasarca, fluid overload. -Continue to diurese. -Lasix 20 mg IV daily -I will add potassium as well. 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 -We will repeat CT chest with IV contrast in the next 1 or 2 days. Her previous scan showed no signal changes in the joint. Left shoulder pain. -Evaluated by orthopedic surgery, considered not a surgical issue at this point. -2 MRIs have been done thus far. Substance abuse. Chronic. Present on admission. Active -Currently uses IV meth and heroin. Has been on Suboxone in the past -Social work referral. -Careful adjustments of pain meds considering her history. We will discontinue her IV narcotics and avoid them if possible. -A reasonable goal would be to slowly wean her oral pain medications off during her hospital stay Anemia. -No evidence of rectal bleeding. -Negative hemolytic workup, she did get 2 units of packed red blood cells -Stable CODE STATUS: Full code DVT prophylaxis: SCDs Disposition: Possible transfer to LTAC for continued IV antibiotics, pending hospital course. GI Prophylaxis: Not indicated VTE Prophylaxis: Sub-Q Heparin (Unfractionated) VTE Mechanical Devices: Intermittant Pneumatic CD Resuscitation Status: CPR: Attempt Resuscitation Issa Kebede DO Jul 23, 2016 18:58
[2016-07-23] MEDS: Furosemide 10 mg/mL 2 mL Inj IVPUSH SCH (20:53)
[2016-07-23 21:17] VITALS: BP 117/77; PULSE 86; RESP 18; O2SAT 97
[2016-07-24] MEDS: HYDROcodone-APAP 5-325 mg Tablet PO PRN (00:56)
[2016-07-24] MEDS: Heparin 5,000 Unit/mL Inj SUBQ SCH ×3 (00:56→17:29)
[2016-07-24 04:48] VITALS: BP 126/87; PULSE 86; RESP 18; O2SAT 97
[2016-07-24 06:12] VITALS: PULSE 98
[2016-07-24 06:21] LABS: BASOPHILS % (AUTO) 0.2 % (0-3); EOSINOPHILS % (AUTO) 0 % (0-5); MONOCYTES % (AUTO) 6.2 % (4-12); Mean Corpuscular Hemoglobin 27.8 pg (27.0-35.0); Mean Corpuscular Volume 84.9 fL (81-100); NEUTROPHILS % (AUTO) 69.1 % (40-74); Platelet Count 253 bil/L (150-400)
--- NOTE | 2016-07-24 06:35 | NUR ---
Pain Frequently requesting pain medication throughout shift. While RN present patient noted to be crying. Prn Dilaudid PO and [place] given throughout shift. Patient noted to be sleeping between doses but states her pain is not being controlled. paged x2 and awaiting response.
[2016-07-24] MEDS: Nafcillin Inj 12,000 MG in Dextrose 5% 1,000 ML IV SCH (09:21)
[2016-07-24] MEDS: lamoTRIgine 100 mg Tablet PO SCH ×2 (09:22→21:55)
[2016-07-24] MEDS: Furosemide 10 mg/mL 2 mL Inj IVPUSH SCH (09:26)
[2016-07-24 09:49] VITALS: PULSE 105
[2016-07-24] MEDS: 0.9% Sodium Chloride 250 ML IV SCH (09:53)
[2016-07-24 10:43] VITALS: BP 122/83; PULSE 113; RESP 16; O2SAT 98
--- NOTE | 2016-07-24 12:34 | NUR ---
Incontinent Pt has chosen to wet her bed and herself instead of getting out of bed today. When asked why she has chosen to urinate on herself and the bed she said she couldn't get up. Pt did not turn her light on or ask for help
[2016-07-24] MEDS: Ondansetron 2 mg/mL 2 mL Inj IVPUSH PRN ×2 (13:06→17:59)
[2016-07-24 14:29] VITALS: BP 126/83; PULSE 88; RESP 18; O2SAT 97
--- NOTE | 2016-07-24 17:28 | PCM.PNMED ---
Subjective Date of Service Jul 24, 2016 Subjective Ongoing pain, consistently asking for increases in narcotics. She states that she is not here for detox, and would rather than stop narcotics. She is asking for her gabapentin and clonidine. No fevers chills, chest pain or shortness of breath. Neff catheter removed yesterday Exam Vital Signs Vital Sign - Last Date Time Temp Pulse Resp B/P Pulse Ox O2 Delivery O2 Flow Rate FiO2 07/24/16 14:29 37.7 88 18 126/83 97 Room Air Intake and Output 07/23/16 07/23/16 07/24/16 Cumulative From/Thru 15:00 23:00 07:00 07/15/16 18:29 - 07/24/16 06:56 Intake Total 1047 ml 787 ml 63015 ml Output Total 1350 ml 900 ml 74402 ml Balance -303 ml -113 ml 53249 ml Intake Oral 600 ml 300 ml 8991 ml IV Total 447 ml 487 ml 10100 ml Packed Cells 965 ml Output Urine Total 1350 ml 900 ml 39996 ml # Voids 4 # Bowel Movements 0 Exam General: Alert, Oriented X3, mild distress Head: Normocephalic, atraumatic Eyes: RUCHI, EOMI, no scleral Icterus Chest: clear to auscultation B/L, no wheezing rales or rhonchi Heart: Regular rate and rhythm. Normal S1, S2, no murmurs noted Abdomen: soft, non-tender. Bowel sounds are normoactive. No guarding or rebound. Extremities: no cyanosis, clubbing, 1-2+ pitting edema IVs and Medications Medications Reviewed: Medications were reviewed in detail Lab and Diagnostics Result Diagram: 07/24/1654407/24/1645 Cardiac Echo Impressions Shows a tricuspid valve vegetation with moderate to severe regurgitation Assessment & Plan Patient is a 25-year-old IV heroin and meth using female presenting with shortness of breath and chest pain and admitted for severe sepsis with pneumonia and urinary tract infection. She was diagnosed with endocarditis. Sepsis: -Multiple blood cultures have come back MSSA. Her last set appears to be sterile. 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 Acute. Present on admission. Active -The patient continues to have positive cultures. She also has severe tricuspid regurgitation by echo. -I discussed the patient with cardiology who has reviewed her echo and does not think it JOÃO would be appropriate unless it would change the plan of care. -If her last set of blood cultures comes back positive, she will need a JOÃO to rule out abscess. This is been discussed with cardiology and infectious disease. Acute kidney injury. Present on admission. Resolved. -Initially treated with IV fluids. These have been stopped Urinary tract infection. Acute. Present on admission. -Resolved. Generalized anasarca, fluid overload. -Continue to diurese. 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 -We will repeat CT chest with IV contrast in the next 1 or 2 days. Her previous scan showed no signal changes in the joint. Left shoulder pain. -Evaluated by orthopedic surgery, considered not a surgical issue at this point. -2 MRIs have been done thus far. Substance abuse. Chronic. Present on admission. Active -Currently uses IV meth and heroin. Has been on Suboxone and methadone in the past -Patient is upset because she states she is not here for detox and would like her narcotics increased. She states she would rather than stop taking narcotics. -She has been an IV drug user for 8 years, she started with oral pain pills recreationally. -Social work referral. -Careful adjustments of pain meds considering her history. Her IV narcotics have been discontinued. It is hospital policy not to give IV narcotics to an IV drug user. -A reasonable goal would be to slowly wean her oral pain medications down during her hospital stay -I will add clonidine and gabapentin which may help her with her withdrawal symptoms. Anemia. -No evidence of rectal bleeding. -Negative hemolytic workup, she did get 2 units of packed red blood cells -Stable CODE STATUS: Full code DVT prophylaxis: SCDs Disposition: Possible transfer to LTAC for continued IV antibiotics, pending hospital course. GI Prophylaxis: Not indicated VTE Prophylaxis: Sub-Q Heparin (Unfractionated) VTE Mechanical Devices: Intermittant Pneumatic CD Resuscitation Status: CPR: Attempt Resuscitation Issa Kebede DO Jul 24, 2016 17:28
--- NOTE | 2016-07-24 18:13 | NUR ---
Behavior Pt got out of bed with Rn assist to BR, she then sat up in chair for dinner, before asking to go back to bed, patient was much more willing to participate this evening with getting up and moving then she was earlier in the day
[2016-07-24 22:08] VITALS: BP 126/84; PULSE 66; RESP 18; O2SAT 99
[2016-07-25] VITALS (8 sets, daily range): BP systolic 125–137; BP diastolic 82–94; PULSE 80–112; RESP 16–22; O2SAT 96–98
[2016-07-25] MEDS: Heparin 5,000 Unit/mL Inj SUBQ SCH ×3 (00:13→18:36)
[2016-07-25] MEDS: Ondansetron 2 mg/mL 2 mL Inj IVPUSH PRN ×4 (00:24→21:19)
[2016-07-25 02:21] LABS: BASOPHILS % (AUTO) 0.4 % (0-3); EOSINOPHILS % (AUTO) 0 % (0-5); MONOCYTES % (AUTO) 7.5 % (4-12); Mean Corpuscular Hemoglobin 27.2 pg (27.0-35.0); Mean Corpuscular Volume 86.4 fL (81-100); Platelet Count 259 bil/L (150-400)
--- NOTE | 2016-07-25 07:05 | NUR ---
LEFT SHOULDER DISCOMFORT PATIENT COMPLAINS OF LEFT SHOULDER DISCOMFORT RATES 8. MEDICATED WITH DILAUDID DOCUMENTED. GIVEN WARM PACK. GIVEN EMOTIONAL SUPPORT CARE ONGOING.
[2016-07-25] MEDS: Nafcillin Inj 12,000 MG in Dextrose 5% 1,000 ML IV SCH (08:38)
[2016-07-25] MEDS: lamoTRIgine 100 mg Tablet PO SCH ×2 (08:39→20:41)
[2016-07-25] MEDS: Furosemide 10 mg/mL 2 mL Inj IVPUSH SCH (08:39)
[2016-07-25] MEDS: 0.9% Sodium Chloride 250 ML IV SCH (10:09)
[2016-07-25] MEDS: hydrOXYzine Pamoate 25 mg Capsule PO SCH (14:07)
--- NOTE | 2016-07-25 15:18 | PROG NOTE ---
[address] [address] PROGRESS NOTE PATIENT: RAJANI ALSTON : 1990 MR#: [id number] ADMIT: 07/15/2016 JOB ID: [id number] DATE: 07/25/2016 INFECTIOUS DISEASE FOLLOWUP NOTE: REASON FOR FOLLOWUP: MSSA tricuspid endocarditis with septic pulmonary emboli and probable left sternoclavicular septic joint. INTERVAL HISTORY: The patient reports that over the last three days since I have last seen her, she has improved considerably. Her fevers and chills have resolved and her left shoulder can now be moved passively, but when she moves it actively she has terrible pain. She continues to note that her left sternoclavicular joint is painful and seems to "stick out" but it is not any worse than it has been. She has less cough and no longer has the pleuritic chest pain that was a problem earlier. PHYSICAL EXAMINATION: Reveals an afebrile woman temp 36.9, pulse 109, respiratory rate 16, blood pressure 132/82. She is saturating 97% on room air. Examination of the oral cavity is unremarkable. PICC line appears benign. Lungs with scattered crackles but improved. Cardiac tones without murmur. The patient's left sternoclavicular joint is prominent and slightly tender to palpation, though much less so than previously. Her left shoulder can now be moved passively, which is a big improvement, but active motion seems to cause a great deal of pain. The abdomen is benign. No peripheral stigmata of endocarditis are noted. LABORATORIES: Include a white count of 8000 with a normal diff. Creatinine is 1.14. Urinalysis without white cells. Blood cultures were positive up to and including one of four bottles on July 20. We now have negative blood cultures from the , though unfortunately only one set was drawn, and negative blood cultures from the . IMPRESSION: This is a complicated case of a young IV drug using woman who was admitted with what is clearly right-sided endocarditis with extensive septic pulmonary emboli. She also has a severe soft tissue infection in and around the right shoulder but apparently not a septic joint based on 2 MRI scans and multiple orthopedic evaluations. I still think it is likely she has a septic sternoclavicular joint and this should be imaged and perhaps aspirated. Overall, though, her systemic toxicity is much improved. I had been advocating for a transesophageal echo but I did discuss this case by telephone with Dr. Guzman of cardiology in great detail yesterday. His feeling is that the patient is finally improving and her blood cultures have turned negative so a JOÃO would add little to her management. We agreed that we could probably hold off on additional cardiac imaging if her blood cultures stay negative from July 21 on; but, it any more cultures turn positive, I think we will need a repeat JOÃO. RECOMMENDATIONS: 1. Will continue with nafcillin with the tentative stop date of August 31, or Coelho's Day. 2. The patient will likely need to stay here throughout the entire course as her overall history suggests that she is a very frequent and aggressive user of IV heroin up to and including the day she was admitted while she was critically ill and I do not think sending her home or to a senior living facility with a PICC line would make sense. 3. [place] courses of antibiotics are probably inadvisable here as we have evidence of metastatic spread to the shoulder as well as probably the sternoclavicular joint and this the patient was bacteremic for almost a week despite aggressive antibiotic therapy. 4. A CT scan with contrast of the chest, and in particular the left sternoclavicular joint, should be obtained sometime in the next day or two. 5. If there is a sternoclavicular septic joint, it may need to be aspirated or debrided. 6. ID will continue to follow this complex case with you.
--- NOTE | 2016-07-25 15:59 | NUR ---
Data & Assessment: EMR reviewed. Patient is on her tenth day of hospitalization. Patient is not medically ready for discharge at this time. Patient was seen by Dr. Lee and he will continue with nafcillin with the tentative stop date of August 31. Patients mother, Lidya Miller is usually at bedside with the patient. SW will continue to follow the patient to assist with discharge planning if needed. Plan: Patient is likely to be discharged once IV Abx. are complete. Patient will discharge via POV. SW will continue to follow. Janet Mayers LMSW, [place]
--- NOTE | 2016-07-25 17:14 | PCM.PNMED ---
Subjective Date of Service Jul 25, 2016 Subjective denies any new issues/complaints Exam Vital Signs Vital Sign - Last Date Time Temp Pulse Resp B/P Pulse Ox O2 Delivery O2 Flow Rate FiO2 07/25/16 14:40 36.7 95 16 137/86 96 Room Air Intake and Output 07/24/16 07/24/16 07/25/16 Cumulative From/Thru 15:00 23:00 07:00 07/15/16 18:29 - 07/25/16 06:16 Intake Total 1462 ml 461 ml 87587 ml Output Total 700 ml 04545 ml Balance 762 ml 461 ml 79967 ml Intake Oral 880 ml 461 ml 60816 ml IV Total 582 ml 15965 ml Packed Cells 965 ml Output Urine Total 700 ml 22466 ml # Voids 2 2 8 # Bowel Movements 1 1 General: Alert, Cooperative, No Acute Distress Eyes: Scleral Anicteric Mouth: Mucous Membr Moist/[place] Neck: Supple Chest & Lungs: Chest Wall Normal, Clear to auscultation & percussion Cardiovascular: Regular Rate/Rhythm Abdomen: Non-tender, Non-distended, Normoactive bowel tones, Soft Extremities: No cyanosis/clubbing/edma bilat Neurological: Grossly Neurologically Intact, Normal Speech IVs and Medications Medications Reviewed: Medications were reviewed in detail Lab and Diagnostics Result Diagram: 07/25/16 0200 07/25/16 020 Cardiac Echo Impressions Shows a tricuspid valve vegetation with moderate to severe regurgitation Assessment & Plan 25-year-old IV heroin and meth using female presenting with shortness of breath and chest pain and admitted for severe sepsis with pneumonia and urinary tract infection. She was diagnosed with endocarditis. # Acute Sepsis, poa -Multiple blood cultures have come back MSSA. Her last set appears to be sterile. 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 Present on admission. ongoing -has severe tricuspid regurgitation by echo. -per earlier notes cardiology "does not think it JOÃO would be appropriate unless it would change the plan of care" -appreciate ID consult. will f/u w/ recs -c/w Nafcillin with the tentative stop date of -"A CT scan with contrast of the chest, and in particular the left sternoclavicular joint, should be obtained sometime in the next day or two." # Acute kidney injury. Present on admission. Improved but not fully resolved -Initially treated with IV fluids. These have been stopped - consider nephrology consult # Urinary tract infection. Acute. Present on admission. -Resolved. # Generalized anasarca, fluid overload. Improving -On Lasix 20 mg IV daily -Continue potassium -f/u I/O # Possible left sternoclavicular osteomyelitis , POA. -CT with contrast next 1 or 2 days if PRISCILA resolve. # Left shoulder pain. -Evaluated by orthopedic surgery, considered not a surgical issue at this point. -2 MRIs have been done thus far. # Substance abuse. Chronic. Present on admission. Active -uses IV meth and heroin. -Has been on Suboxone and methadone in the past -Social work referral. -Careful adjustments of pain meds considering her history. Her IV narcotics have been discontinued. It is hospital policy not to give IV narcotics to an IV drug user. -A reasonable goal would be to slowly wean her oral pain medications down during her hospital stay -c/w Clonidine and Gabapentin which may help her with her withdrawal symptoms. # Anemia. -No evidence of active bleeding -Negative hemolytic workup, she did get 2 units of packed red blood cells -f/u Dispo: as noted above GI Prophylaxis: Not indicated VTE Prophylaxis: Sub-Q Heparin (Unfractionated) VTE Mechanical Devices: Intermittant Pneumatic CD Resuscitation Status: CPR: Attempt Resuscitation Time spent 35 min David Sy Jul 25, 2016 17:14
[2016-07-26] VITALS (7 sets, daily range): BP systolic 132–151; BP diastolic 86–109; PULSE 72–111; RESP 16–24; O2SAT 94–97
[2016-07-26] MEDS: Heparin 5,000 Unit/mL Inj SUBQ SCH ×3 (00:32→16:11)
[2016-07-26 05:30] LABS: Mean Corpuscular Hemoglobin 27.6 pg (27.0-35.0); Mean Corpuscular Volume 87.9 fL (81-100)
[2016-07-26 05:53] LABS: Magnesium 1.7 mg/dL (1.6-2.6)
[2016-07-26] MEDS: Ondansetron 2 mg/mL 2 mL Inj IVPUSH PRN ×3 (06:49→21:13)
[2016-07-26] MEDS ORDERED: Potassium Chloride 20 mEq SR Tablet PO ONE (07:40)
[2016-07-26] MEDS: hydrOXYzine Pamoate 25 mg Capsule PO SCH ×2 (07:43→11:48)
[2016-07-26] MEDS: lamoTRIgine 100 mg Tablet PO SCH ×2 (07:43→21:10)
[2016-07-26] MEDS: 0.9% Sodium Chloride 250 ML IV SCH (09:24)
[2016-07-26] MEDS: Nafcillin Inj 12,000 MG in Dextrose 5% 1,000 ML IV SCH (09:24)
--- NOTE | 2016-07-26 11:36 | NUR ---
Spoke with Tammy dawson at [facility] and she mets all criteria and they are starting authorization through [facility] and they will plan to have an answer by tomorrow. Updated PHYSICAL SCIENCE TECHNICIAN
--- NOTE | 2016-07-26 11:50 | NUR ---
"I'm bored" P:"I'm bored." I: Encouraged pt. to ambulate in the hallway. Explained benefits of physical activity. E: Pt. walked in the hallway x2 this morning.
--- NOTE | 2016-07-26 14:53 | NUR ---
Social Work CD Assessment and Discharge Planning: SW met with patient at bedside to complete CD Assessment and offer CD resources. Patient is a 25 year old female admitted on 07/15/16 for pneumonia, IVDA, and sepsis. Patient states residing home with roommates in [place]. Patient states payer as [facility]. Patient PCP as MD Flores, whom patient states haven't seen in years. Patient states pharmacy of choice as [facility] or [facility]. Patient states having no previous HHC, SNF or DME history. Patient states having no AD and declined completion at this time. Discharge options of transfer to [facility] discussed with patient. Patient states being in agreement to transfer to [facility] for completion of abx until Aug 31. Patient aware of possible transfer for tomorrow. Patient states being in agreement for completion on abx course. Hx of Substance Use: Patient reports heavy use of heroin and meth. Patient states fist exposure to heroin at the age of 16years old. Patient states first use began as a result to peer pressures from friends and family drug and alcohol history. Hx of tx programs: Patient states having attended various treatment programs in past such as [facility] in 2010 and [facility] in 2012. Patient denied attending any recent programs at this time Hx of w/d symptoms. Patient denied any w/d symptoms at this time Family hx: Patient reports previous family history of drug and alcohol use on her father's side. Patient states that most of her relatives on her father's side are heavy drinkers and utilize heroin/meth substances. Patient states father was a heavy drinker until his years ago. Hx of sobriety and supports: Patient states having experienced periods of sobriety on various occasions. Patient states that when her daughter was 1 or 2 she experienced sobriety for several months and later relapsed. Patient states during this period of sobriety, she was able to live in an apartment with her daughter and care for her daughter needs. Patient smiled as she reminisced during this time, as patient expressed having involvements with CPS during the phase of her daughter in 2013 as a result to her heroin/meth use. Patient treatment program admittance and support from mother to attend [facility] during these years also assisted with patient's sobriety, as group counseling was offered. Consequences for use: Patient's mother is the primary children's service worker for her daughter at this time as a result to patient's drug use. Patient states having had a miscarriage previously during use. Patient has current warrants and criminal history related to use. Motivation: Patient states having motivation for use to be a better example to her daughter. No notated suicide ideations. Discharge plan: Patient in agreement to transfer to [facility] [place] for completion of abx course. SW to follow up with insurance payor for auth for transfer. SW to follow. Cheikh CURRAN Addendum: 07/26/16 at 1516 by COLETTE SIMS Amended: Links added.
[2016-07-26 15:37] LABS: APPEARANCE,URINE HAZY (CLEAR,HAZY); COLOR,URINE YELLOW (YELLOW); OCCULT BLOOD,URINE LARGE (NEGATIVE); UROBILINOGEN,URINE NORMAL (NORMAL)
--- NOTE | 2016-07-26 16:06 | PROG NOTE ---
[address] [address] PROGRESS NOTE PATIENT: RAJANI ALSTON : 1990 MR#: [id number] ADMIT: 07/15/2016 JOB ID: [id number] DATE: 07/26/2016 REASON FOR FOLLOWUP: Tricuspid MSSA endocarditis with septic pulmonary emboli. Complex infection of left shoulder and possible left sternoclavicular septic joint. INTERVAL HISTORY: The patient continues to slowly improve. She notes that her fevers and chills are gone. She still has some shortness of breath, especially with exertion and some minimal pleuritic chest pain, but these respiratory complaint seem to be improving. Her left shoulder is still quite painful but the range of motion is gradually increasing. She still notes some tenderness over her left sternoclavicular joint but that also seems slowly better. She is tolerating her IV antibiotics and PICC line quite well. PHYSICAL EXAMINATION: Reveals an afebrile woman, temp 36.8, pulse 97, respiratory 20, blood pressure 133/96, saturating well on room air. Examination of the eyes without conjunctival problems. Oral cavity without thrush or hairy leukoplakia. Lungs with scattered crackles throughout the lung sky, especially in the dependent areas. Cardiac tones without murmur. The left upper extremity movement is improved, though she still cannot quite raise the left arm over her head but it is much, much better than it was a few days ago. The left sternoclavicular joint is prominent and slightly tender but without erythema. LABORATORIES: Include a white count of 8700, creatinine 1.14. LFTs are normal. Micro includes negative blood cultures from the 4th and 6th and these now have been negative for four days which is a very hopeful sign. Recall that prior to this, all of our blood cultures basically grew MSSA. No new imaging has been performed. IMPRESSION: This is a very complicated case of a young woman who injects intravenous drugs, who presents with a large vegetation on her tricuspid valve, multiple septic pulmonary emboli, an infected but apparently not septic left shoulder and a probable left sternoclavicular joint infection. She seems finally to have turned the corner, though it has been a long 12 days to get from her admission, when she was very toxic, to this point. At this point, the patient will require an additional six weeks of IV antibiotics as proceeding from July 21. If all goes well, this would take us through August 31. RECOMMENDATIONS: 1. Will continue with continuous infusion nafcillin through August 31. 2. The patient should continue to stay at [facility] until that date if at all possible, as she is not a candidate for home IV antibiotics. 3. If at the very end of her therapy in August the patient was insisting to leave we could consider a shot of dalbavancin as a long-acting alternative for the last 10-14 days of therapy, but this would be nonstandard and I would prefer to go for the entire August [address] scan of the chest with contrast and including particular attention to the left sternoclavicular joint is indicated.
--- NOTE | 2016-07-26 16:07 | NUR ---
NUTRITION FOLLOW-UP: ASSESS: 25 YO female admitted with shortness of breath, chest pain, PRISCILA, pneumonia, and UTI. Found to have endocarditis with septic pulmonary emboli. Pt's wt has increased 23 kg since admit fluid overload. PO intake good. PMHx: Homelessness, IV heroin and meth use, seizure disorder, UTI's, pyelonephritis, smoking, gonorrhea. DIET: Soft. PO 75-100%. LABS: Reviewed. Na 133, K+ 3.3 Cr 1.14, Glu 446, Ca 7.0, (07/23): Alb 1.5 MEDICATIONS: Reviewed. GI symptoms / stool: 1 BM 07/24. Skin Integrity: Hemanth 15 ANTHROPOMETRICS: Current Wt: 82.1 kg BMI: 33.1 kg/m2. Admit wt 60 kg (BMI: 24.2 kg/m2) ESTIMATED NEEDS: based of admit wt Calories: 1500 - 1800 kcal (25 - 30 kcal / kg) Protein: 72-90g/day (1.2-1.5g/kg) NUTRITION DIAGNOSIS: 1) Inadequate oral intake related to weakness and respiratory distress as evidence by PO refused-25% and pt reporting weakness and difficulty chewing dry/hard foods.--PERSISTS 2) Altered nutrition-related labs related to acute kidney injury, as evidenced by elevated BUN, creatinine.--IMPROVED INTERVENTION: 1) Continue current diet and snacks as ordered. MONITOR/EVALUATE: Diet, PO intake, labs, GI/nutrition status. Follow per moderate nutrition risk guidelines.
--- NOTE | 2016-07-26 16:22 | PCM.PNMED ---
Subjective Date of Service Jul 26, 2016 Subjective Reports some nausea and generalized malaise. also reports loose stool Exam Vital Signs Vital Sign - Last Date Time Temp Pulse Resp B/P Pulse Ox O2 Delivery O2 Flow Rate FiO2 07/26/16 14:38 36.8 72 20 150/109 97 Room Air Intake and Output 07/25/16 07/25/16 07/26/16 Cumulative From/Thru 15:00 23:00 07:00 07/15/16 18:29 - 07/26/16 05:24 Intake Total 1000 ml 905 ml 76721 ml Output Total 32126 ml Balance 1000 ml 905 ml 23779 ml Intake Oral 1000 ml 37252 ml IV Total 905 ml 61605 ml Packed Cells 965 ml Output Urine Total 77661 ml # Voids 3 11 # Bowel Movements 0 1 Exam General: Alert, Cooperative, No Acute Distress Eyes: Scleral Anicteric Mouth: Mucous Membr Moist/[place] Neck: Supple Chest & Lungs: Chest Wall Normal, Clear to auscultation bilat Cardiovascular: Regular Rate/Rhythm Abdomen: Non-tender, Non-distended, Normoactive bowel tones, Soft Extremities: No cyanosis/clubbing. 2+ pitting edema in LE bilat. Neurological: Grossly Neurologically Intact, Normal Speech IVs and Medications Medications Reviewed: Medications were reviewed in detail Lab and Diagnostics Result Diagram: 07/26/1651407/26/16514 Cardiac Echo Impressions Shows a tricuspid valve vegetation with moderate to severe regurgitation Assessment & Plan 25-year-old IV heroin and meth using female presenting with shortness of breath and chest pain and admitted for severe sepsis with pneumonia and urinary tract infection. She was diagnosed with endocarditis. # Acute Sepsis, poa -Multiple blood cultures have come back MSSA. Her last set appears to be sterile. 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 Present on admission. ongoing -has severe tricuspid regurgitation by echo. -per earlier notes cardiology "does not think it JOÃO would be appropriate unless it would change the plan of care" -appreciate ID consult. will f/u w/ recs -c/w Nafcillin with the tentative stop date of -A CT scan with contrast of the chest, and in particular the left sternoclavicular joint, should be obtained sometime in the next day or two pending improved renal function # Acute kidney injury. Present on admission. Improved but not fully resolved - Initially treated with IV fluids. These have been stopped - Nephrology consulted today. will f/u w/ recs # Generalized anasarca, fluid overload. Improving - was Lasix 20 mg IV daily. stopped today pending further recs by nephrology - f/u I/O # Possible left sternoclavicular osteomyelitis , POA. - CT with contrast next 1 or 2 days if PRISCILA resolve. # Acute diarrhea. no poa. - r/o c. diff # Left shoulder pain. - Evaluated by orthopedic surgery, considered not a surgical issue at this point. - 2 MRIs have been done thus far. # Substance abuse. Chronic. Present on admission. Active - uses IV meth and heroin. - Has been on Suboxone and methadone in the past - Social work referral. - Careful adjustments of pain meds considering her history. Her IV narcotics have been discontinued. It is hospital policy not to give IV narcotics to an IV drug user. - A reasonable goal would be to slowly wean her oral pain medications down during her hospital stay - c/w Clonidine and Gabapentin which may help her with her withdrawal symptoms. # Anemia. - No evidence of active bleeding - Negative hemolytic workup, she did get 2 units of packed red blood cells - f/u # Urinary tract infection. Acute. Present on admission. - Resolved. Dispo: as noted above GI Prophylaxis: Not indicated VTE Prophylaxis: Sub-Q Heparin (Unfractionated) VTE Mechanical Devices: Intermittant Pneumatic CD Resuscitation Status: CPR: Attempt Resuscitation David Sy Jul 26, 2016 16:22
[2016-07-26 19:22] LABS: Magnesium 1.8 mg/dL (1.6-2.6)
--- NOTE | 2016-07-26 20:00 | CONS ---
[address] [address] CONSULTATION REPORT PATIENT: RAJANI ALSTON : 1990 MR#: [id number] ADMIT: 07/15/2016 JOB ID: [id number] DATE OF SERVICE: 07/26/2016 REQUESTING PHYSICIAN: David Sy MD REASON FOR CONSULTATION: Management of abnormal kidney function test. PRESENT ILLNESS: This is a 25-year-old, lady with significant past medical history of IV drug use. Came to the hospital on July 15 due to malaise, shortness of breath and chest pain. Upon arrival in the emergency department, she was found to have temperature of 38.4, blood pressure of 95/48. Her initial WBC was 18.7. She had extensive septic workup done. The initial UA showed WBC of 6 to 10, a chest x-ray showed bilateral lower lobe infiltrates. Blood culture positive for Staph aureus. Infectious Disease physician was promptly consulted. The promptly the patient was found to have tricuspid endocarditis with septic emboli to the lungs. She also still complained of left shoulder pain. MRI was done on July 16, 2016 and showed no definite evidence of osteomyelitis. The patient was started on antibiotics initially in the ED including azithromycin and ceftriaxone. Later on, she was started on Ceftaroline, daptomycin and vancomycin. Since the finalized culture showed MSSA currently, she is now on nafcillin infusion. She is receiving nafcillin 12 g infusion over 24 hours. Her current WBC dropped to 8.7 today. Her initial BUN and creatinine were 36 and 2.1 respectively. She has received IV fluid resuscitation. According to the record, she has received at least 50 L during this hospitalization. Her current serum creatinine was 1.14. She received IV diuretics, furosemide 20 mg daily for two days. She is complaining of lower extremity swelling and feeling bloated. Apparently, she also has pain on the left sternoclavicular joint, concerned of osteomyelitis. According to Dr. Lee, he would like to perform CT with contrast to rule out osteomyelitis once acute kidney injury resolved. Dr. Sy contacted me for a management of fluids and diuretics. Since IV contrast will be possibly given while performing a CT with contrast to rule out osteomyelitis. the renal service was consulted to prevent episodes of acute kidney injury if possible. PAST MEDICAL HISTORY: 1. IV drug use including heroin and meth. 2. History of recurrent UTI. 3. History of gonorrhea. 4. Seizure disorder. 5. History of soft tissue infections. 6. Asthma. SURGICAL HISTORY: None. SOCIAL HISTORY: Positive for IV drug use including heroin and meth. Patient smokes cigarettes. She does not drink alcohol. FAMILY HISTORY: Positive for kidney stones in her mother. ALLERGIES: BACTRIM. REVIEW OF SYSTEMS: Constitutional: Positive for weakness, low energy. HEENT: Positive for headache, 7/10. The patient has received Tylenol with somewhat improved. GI: No nausea, vomiting. No diarrhea. : No dysuria. No hematuria. Pulmonary: No cough. No hemoptysis. Positive for left parotid chest pain. Musculoskeletal: Positive for left sternoclavicular joint pain and left shoulder pain. Skin: No rashes. No excoriation. Neuro: No neurological deficit. PHYSICAL EXAMINATION: Vitals: Temperature 36.8, pulse 72, respiratory rate 20, blood pressure 150/109. General appearance: Awake, alert, oriented x3. In no acute distress. HEENT: Mild pallor. No jaundice. No JVD. No lymphadenopathy. No thyroid enlargement. Heart: Regular rhythm. Normal S1, S2. No murmurs, rubs, or gallops. Abdomen: Soft, active bowel sounds. No hepatosplenomegaly. Extremity: 1+ edema on the lower extremity. Musculoskeletal: Positive for left shoulder tenderness and left sternoclavicular joint tenderness. LABORATORY: Sodium 133, potassium 3.3, chloride 95, bicarb 25, BUN 11, creatinine 1.14, calcium 7.0, albumin 1.5. Vitamin B12 of 1359, folate 7.6, iron saturation 12. Echocardiogram showed ejection fraction 60% to 65%, moderate sized vegetations on tricuspid valve 1.1 x 1.9 cm, moderate to severe tricuspid regurgitation. WBC 8.7, hemoglobin 7.1, platelets 297. D-dimer 11.5. UA: RBC 0-2, WBC 0-5. Serology: Trichomonas, Chlamydia negative. Hepatitis C antibody negative. HIV is nonreactive. Gonorrhea DNA negative. Urine Legionella antigen negative. ASSESSMENT: 1. Acute kidney injury, improving. Initial serum creatinine was 2.1. Patient has received IV fluids. Her current serum creatinine is 1.1. The patient is now complaining of lower extremity swelling and feeling bloated. She has received at least 50 L of fluid resuscitation since she was hospitalized. The etiology of acute kidney injury is rather due to sepsis and intravascular volume depletion. At this point, I would like to stop all the IV fluids. She is now getting nafcillin 12 g infusion with normal saline 1 L over 24 hours. I have talked to pharmacist. We will try to stop other IV medications and other IV maintenance fluids. I would like to repeat UA, urine protein creatinine ratio and urine sodium. At this point, I prefer MRI with contrast over a CT with contrast. Will discuss with Dr. Lee. 2. Acute tricuspid valve endocarditis with septic pulmonary emboli currently on the IV nafcillin infusion 12 g over 24 hours until August 31. 3. Suspected osteomyelitis of the left sternoclavicular joint. 4. Left shoulder pain status post MRI showed no osteomyelitis. 5. Polysubstance abuse. 6. Anemia. 7. Hypokalemia. PLAN: 1. Discontinue all IV fluids. 2. We will replace potassium. 3. Will repeat BMP. 4. We will order anemia workup. 5. Will discuss with Dr. Lee if he can perform MRI searching for left sternoclavicular osteomyelitis. At this point, it is safe to give gadolinium. I am afraid that administration of IV contrast will insult her kidney and may cause another episode of acute kidney injury. Thank you for allowing me to participate in the care of your patient. We will monitor along with you.
--- NOTE | 2016-07-26 22:00 | NUR ---
concern about transferr mother of patient here. crying. states "i want someone to call me if my daughter is transferred." patient signed hippa form for information to be given to mother. patient states "i am leaving tomorrow i just have to find a ride." explained to patient that bed also has to be available note to case management on front of chart for them to please call the mother.
[2016-07-27] VITALS (8 sets, daily range): BP systolic 133–167; BP diastolic 65–119; PULSE 51–94; RESP 16; O2SAT 95–99
[2016-07-27] MEDS: Heparin 5,000 Unit/mL Inj SUBQ SCH ×5 (03:45→23:59)
[2016-07-27] MEDS: hydrOXYzine Pamoate 25 mg Capsule PO SCH ×2 (08:08→12:37)
[2016-07-27] MEDS: lamoTRIgine 100 mg Tablet PO SCH ×2 (08:08→20:50)
[2016-07-27] MEDS: Nafcillin Inj 12,000 MG in Dextrose 5% 1,000 ML IV SCH (08:09)
[2016-07-27 09:13] LABS: Mean Corpuscular Hemoglobin 27.4 pg (27.0-35.0); Mean Corpuscular Volume 88.6 fL (81-100)
--- NOTE | 2016-07-27 11:19 | NUR ---
Spoke with Tammy at [facility] and they have started the authorization process. They need last 48 hours of updated progress notes faxed. Patient is not ready for discharge as of today but that is OK [facility] has accepted and is planning to take her when ready. Updated KETTLE COORDINATOR and UR RN.
--- NOTE | 2016-07-27 13:48 | NUR ---
Social Work Continued Discharge Planning D: EMR reviewed. Pt is on day 12 of hospitalization for Pneumonia, IVDA, Sepsis. CD assessment completed with Pt on 07/26/16. Pt has been accepted at [facility] pending insurance authorization. Pt discussed in rounds. There is still further medical worker required for Pt prior to transferring to [place], anticipating another 1-2 days at [facility]. SW met with Pt at bedside to provide update. Pt appears anxious. SW informed the plan for transfer to [place] is still in effect, only waiting for some further medical work up to be completed. Pt agreeable to plan. Pt does not wish for this SW to contact family to provide update. Pt states she and her mother have a no contact order and she has asked her mother not to call Pt. SW updated UA and special shopper. Pt reports she will speak to her sister who can provide update to mother. Pt did report she signed an OZZY last night for medical information to be exchanged if Pt's mother calls. SW anticipates Pt to transfer to [place] in 1-2 days pending clinical course at [facility]. Pt to remain at [place] through 08/31/16 for IVABX. SW following A: Pt with significant IVDU P: Pt did report she signed an OZZY last night for medical information to be exchanged if Pt's mother calls. SW anticipates Pt to transfer to [place] in 1-2 days pending clinical course at [facility]. Pt to remain at [place] through 08/31/16 for IVABX. SW following BINA Roger
--- NOTE | 2016-07-27 13:53 | PROG NOTE ---
[address] [address] PROGRESS NOTE PATIENT: RAJANI ALSTON : 1990 MR#: [id number] ADMIT: 07/15/2016 JOB ID: [id number] DATE: 07/27/2016 INFECTIOUS DISEASE FOLLOW UP NOTE: REASON FOR FOLLOW UP: Tricuspid valve endocarditis with multiple septic pulmonary emboli, CHF, possible left sternoclavicular septic joint and now some mild epigastric pain. INTERVAL HISTORY: The patient continues to be free of fevers and chills but she remains short of breath, especially with certain positions while lying in bed, and with exertion. In addition, she notes continued swelling of the lower extremities as well as some fatigue. Other problems include the continued prominence and tenderness of the left sternoclavicular joint as well as now some vague intra-abdominal pain and some new mid thoracic back pain. Despite all this, the patient is gradually improving from an overall point of view, and is able to get up and walk around the smith more and more. She spends much of her day in a chair instead of in bed which is an improvement. PHYSICAL EXAMINATION: Reveals a chronically ill-appearing, young woman in no acute distress today. She is lying in bed, but can readily sit up and move around without any trouble. She is afebrile and has been now for four days. Temperature 37.1, pulse 55, respiratory rate 16, blood pressure 152/102. She continues to saturate well on room air. She is alert and oriented. No conjunctival abnormalities. Lungs with crackles at the bases, not many. Cardiac tones still without a murmur. Abdomen is slightly distended, and a bit tender in the epigastric region. The legs have edema now which extends up above the knees bilaterally. It is about 1+ edema and the patient reports this gets better with Lasix and worse when she does not get the Lasix. In addition she is complaining of back pain. So a careful examination of her spine was done. There is some tenderness though not terribly focal in about the mid thoracic area. Also of note, on the musculoskeletal examination is the prominence and tenderness of the left sternoclavicular joint. The left shoulder now has a full range of motion though with a little bit of pain. LABORATORIES: Include a white count which has bounced to 11,000 today. This is her first elevated white count in a week. There was no differential done with the white count. The platelet count has also bounced to 430,000. Creatinine is 1.13. We do not have recent liver function tests. Hepatitis C and HIV are negative. Micro studies include negative blood cultures now from the 4th and the 6th so we have six bottles of blood cultures negative in a row which suggests that we finally controlled her bacteremia. Urine culture done yesterday is negative. Also note that a urinalysis was done yesterday which showed 6-10 white cells but a lot of red blood cells. IMPRESSION: This is a difficult case of an IV drug using woman who presented with tricuspid endocarditis and multiple septic pulmonary emboli with pleuritic chest pain. She also had what appeared to be a septic shoulder but two MRI scans and visits by Orthopedics have not confirmed this diagnosis and her shoulder is now finally starting to get rapidly better with antibiotics alone after 12 or 13 days. Of greatest concern today is the bump in her white count in association with a bump in her platelet count. This is worrisome and the possible sources here could, of course, include the PICC line (which looks benign), the left sternoclavicular joint which is card tender though not as much as it was earlier in the hospital stay, her back pain which is always worrisome in somebody with Staph aureus bacteremia but it is odd that it started so far into her hospital course, and her epigastric symptoms which could represent pancreatitis or gallbladder disease. RECOMMENDATIONS: 1. This case has been discussed today with Dr. Sy as well as the winder fixer in person. The consensus is that an MRI scan with contrast would be a better test to look at her sternoclavicular joint as we are trying to stay away from CT contrast dye because her renal function which is only now starting to reach normal. 2. Tomorrow we should repeat procalcitonin as well as his liver function tests and lipase. 3. Should the patient's back pain continue to progress, we would be forced to MRI scan her entire spine including cervical, thoracic and lumbar, to look for evidence of vertebral osteo or spinal epidural abscess. Note that the patient now has a nonfocal neuro examination and walks around the smith without any difficulty. 4. At some point, we should repeat a noncontrast CT of the chest, just to see how she is doing with respect to her numerous pulmonary emboli. It is certainly possible that one of these could coalesce into an abscess or area of necrosis which could produce these low-grade leukocytosis and thrombocytosis reactions.
[2016-07-27] MEDS: Ondansetron 2 mg/mL 2 mL Inj IVPUSH PRN ×2 (16:18→23:58)
--- NOTE | 2016-07-27 17:17 | PCM.PNMED ---
Subjective Date of Service Jul 27, 2016 Subjective Reports some nausea but overall feeling better Exam Vital Signs Vital Sign - Last Date Time Temp Pulse Resp B/P Pulse Ox O2 Delivery O2 Flow Rate FiO2 07/27/16 14:05 36.7 88 16 156/91 95 Room Air Intake and Output 07/26/16 07/26/16 07/27/16 Cumulative From/Thru 15:00 23:00 07:00 07/15/16 18:29 - 07/27/16 05:45 Intake Total 636 ml 1588 ml 1986 ml 02375 ml Output Total 1300 ml 1150 ml 40684 ml Balance 636 ml 288 ml 836 ml 56212 ml Intake Oral 636 ml 1000 ml 1510 ml 19014 ml IV Total 588 ml 476 ml 48827 ml Packed Cells 965 ml Output Urine Total 1300 ml 1150 ml 11715 ml # Voids 1 12 # Bowel Movements 0 2 1 4 Exam General: Alert, Cooperative, No Acute Distress Eyes: Scleral Anicteric Mouth: Mucous Membr Moist/[place] Neck: Supple Chest & Lungs: Chest Wall Normal, Clear to auscultation bilat Cardiovascular: Regular Rate/Rhythm Abdomen: Non-tender, Non-distended, Normoactive bowel tones, Soft Extremities: No cyanosis/clubbing. 2+ pitting edema in LE bilat. Neurological: Grossly Neurologically Intact, Normal Speech IVs and Medications Medications Reviewed: Medications were reviewed in detail Lab and Diagnostics Result Diagram: 07/27/16 0900 07/27/16 0900 Cardiac Echo Impressions Shows a tricuspid valve vegetation with moderate to severe regurgitation Assessment & Plan 25-year-old IV heroin and meth using female presenting with shortness of breath and chest pain and admitted for severe sepsis with pneumonia and urinary tract infection. She was diagnosed with endocarditis. # Acute Sepsis, poa -Multiple blood cultures have come back MSSA. Her last set appears to be sterile. 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 Present on admission. ongoing -has severe tricuspid regurgitation by echo. -per earlier notes cardiology "does not think it JOÃO would be appropriate unless it would change the plan of care" -appreciate ID consult. will f/u w/ recs -c/w Nafcillin with the tentative stop date of -Will order MR of chest instea of CT scan with contrast to further assess the sternoclavicular joint # Acute kidney injury. Present on admission. Improved but not fully resolved - Initially treated with IV fluids. These have been stopped - appreciate Nephrology consult. will f/u w/ recs # Generalized anasarca, fluid overload. Improving - further diuresis per nephrology recs # Possible left sternoclavicular osteomyelitis , POA. - MR as noted above # Acute diarrhea. no poa. improving - c. diff ruled out. # Left shoulder pain. - Evaluated by orthopedic surgery, considered not a surgical issue at this point. - 2 MRIs have been done thus far. # Substance abuse. Chronic. Present on admission. Active - uses IV meth and heroin. - Has been on Suboxone and methadone in the past - Social work referral. - Careful adjustments of pain meds considering her history. Her IV narcotics have been discontinued. It is hospital policy not to give IV narcotics to an IV drug user. - A reasonable goal would be to slowly wean her oral pain medications down during her hospital stay - c/w Clonidine and Gabapentin which may help her with her withdrawal symptoms. # Anemia. - No evidence of active bleeding - Negative hemolytic workup, she did get 2 units of packed red blood cells - f/u # Urinary tract infection. Acute. Present on admission. - Resolved. Dispo: as noted above GI Prophylaxis: Not indicated VTE Prophylaxis: Sub-Q Heparin (Unfractionated) VTE Mechanical Devices: Intermittant Pneumatic CD Resuscitation Status: CPR: Attempt Resuscitation David Sy Jul 27, 2016 17:16
--- NOTE | 2016-07-27 19:27 | DRSVH ---
PROCEDURE: MRI CHEST WITH AND WITHOUT CONTRAST ([id number]) INDICATIONS: chest pain. r/o sternoclavicular joint infx TECHNIQUE: Noncontrast coronal T1 spin echo and STIR, sagittal T1 spin echo with fat saturation and STIR, axial T1 spin echo and T2 fast spin echo with fat saturation. After the administration of contrast, axial/ sagittal/coronal T1 spin echo with fat saturation through the sternoclavicular joints.. COMPARISON: [facility], CT, CT CHEST WO CON, 07/17/2016, 14:03. FINDINGS: Image quality: Only fair because of respiratory motion. On the T1 fat-sat coronal post gadolinium images suggestion of some increased signal in the inferior medial aspect of the head of the left clavicle. Other films show fluid in the left sternoclavicular joint. The appearance would be consistent with tr auma, inflammatory arthritis or infection. Suggest CT guided or clinically palpated needle aspiration of the left sternoclavicular joint to rule in or out infection. IMPRESSION: Abnormal left sternoclavicular joint. There is fluid within the joint. There is enhancing edema around the joint. There is slight increased signal within the head of the clavicle adjacent to the joint. To evaluate for infection suggest needle aspiration of the joint. Dictated by: Jose Enrique York M.D. on 07/27/2016 at 19:25 Approved by: Jose Enrique York M.D. on 07/27/2016 at 19:25
[2016-07-28] VITALS (8 sets, daily range): BP systolic 136–169; BP diastolic 88–118; PULSE 79–98; RESP 16–22; O2SAT 94–98
--- NOTE | 2016-07-28 04:46 | NUR ---
Agitation/ Sleep; Patient was unable to sleep. Up and down to chair. Unable to get comfortable. Given HS medication for pain, etc. "I can't sleep on my back anymore and I can't breathe on my side". Discussed use of oxygen for sleep and pt agreed that might work. Turned to side w/ pillows and put on oxygen at 2L/min. Given 1mg IV Lorazepam to assist w/ comfort and sleep. Was asleep and slept for the last 5-6 hours of the night. Obtained blood sample for labs ordered. Continue current updated care plan.
[2016-07-28] MEDS: Ondansetron 2 mg/mL 2 mL Inj IVPUSH PRN ×2 (07:15→07:17)
[2016-07-28] MEDS: Heparin 5,000 Unit/mL Inj SUBQ SCH ×2 (09:50→18:18)
[2016-07-28] MEDS: hydrOXYzine Pamoate 25 mg Capsule PO SCH ×2 (09:50→14:15)
[2016-07-28] MEDS: lamoTRIgine 100 mg Tablet PO SCH ×2 (09:50→21:59)
[2016-07-28] MEDS: NAFCILLIN IV SCH (09:52)
[2016-07-28] MEDS: DEXTROSE 5% IV SCH (09:52)
--- NOTE | 2016-07-28 10:36 | PROG NOTE ---
[address] [address] PROGRESS NOTE PATIENT: RAJANI ALSTON : 1990 MR#: [id number] ADMIT: 07/15/2016 JOB ID: [id number] DATE: 07/28/2016 INFECTIOUS DISEASE FOLLOWUP NOTE: REASON FOR FOLLOWUP: MSSA endocarditis with multiple complications. INTERVAL HISTORY: Overnight, the patient reports she continues to have pain in her left sternoclavicular joint, as well as increasing, and now very severe, pain in her back. It is of interest that this back pain was not present on admission, started just a few days ago, and now is rapidly worsening. She has no neurologic complaints in her lower extremities, however. The patient also denies any fevers or chills. She remains short of breath, especially in certain positions while lying down. She also notes some epigastric fullness and mild pain. PHYSICAL EXAMINATION: Temperature 36.5, and she has been completely afebrile now for four days. Pulse 85, respiratory rate 16, blood pressure 169/118. She is saturating 95% on room air but she appears mildly short of breath even just sitting at rest. Mental status is clear. Oral cavity negative. Lungs with scattered rales and rhonchi as before. Cardiac tones absolutely without any murmur. The left sternoclavicular joint is prominent and slightly tender. The abdomen is slightly distended with some mild epigastric tenderness as per yesterday. There is tenderness over both the thoracic and lumbar spine. LABORATORIES: Labs were just drawn this morning. We have yesterday's white count, which ominously increased to 11,400, as well as yesterday's creatinine, which was down to 1.13, her best at the hospital stay. Our followup blood cultures all remain negative, with the last positive blood culture having been July 20 and all followups negative since then. IMAGING: Yesterday included the MRI scan of the sternoclavicular joints which shows an abnormal left sternoclavicular joint with fluid and enhancing edema. IMPRESSION: This remains a very sick young woman. 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 We also know that she had a very severe soft tissue infection around her left shoulder which seems to be improving. Unfortunately, her left sternoclavicular joint has been worsening now for many days, and it has become apparent that she likely has an methicillin-sensitive Staphylococcus aureus septic left sternoclavicular joint. In addition, I am worried by the increasing white count and now the dual onset of back pain, which is mid thoracic primarily, as well as some epigastric fullness. This raises the possibility of vertebral osteomyelitis or even spinal epidural abscess, though she has no neurologic deficits. Why she would have epigastric pain remains unclear at this point. RECOMMENDATIONS: 1. This case was discussed with Dr. Sy, as well as the education department registrar, at the bedside. 2. I would ask General Surgery to aspirate the left sternoclavicular joint and send the fluid for appropriate cultures. 3. I would go ahead and MRI scan the back with contrast but unfortunately, because the patient seems to have both mid upper thoracic, as well as lumbar, pain, I think it is reasonable to MRI scan the thoracic and lumbar spine at a minimum but we may just as well go ahead and MRI scan the entire spine even though I realize this is a big undertaking. This should be done with contrast. 4. I would get some labs today to include CBC with diff, metabolic panel, lipase and LFT. 5. Will continue to closely follow this complex patient with you. This patient has improved a lot over her two weeks here in the hospital but still nowhere near out of the soto with her staph endocarditis with sustained high-grade staph bacteremia and multiple metastatic foci of infection.
[2016-07-28] MEDS ORDERED: Furosemide 10 mg/mL 2 mL Inj IVPUSH ONE (10:45)
--- NOTE | 2016-07-28 10:50 | PCM.PNMED ---
Subjective Date of Service Jul 28, 2016 Subjective pain over left sternoclavicular joint. back pain. c/o swollen legs. no CP/SOB. good UOP. Exam Vital Signs Vital Sign - Last Date Time Temp Pulse Resp B/P Pulse Ox O2 Delivery O2 Flow Rate FiO2 07/28/16 10:28 37.6 80 22 147/106 97 Room Air Intake and Output 07/27/16 07/27/16 07/28/16 Cumulative From/Thru 15:00 23:00 07:00 07/15/16 18:29 - 07/28/16 05:50 Intake Total 1407 ml 1789 ml 96563 ml Output Total 2200 ml 1500 ml 45168 ml Balance -793 ml 289 ml 20313 ml Intake Oral 840 ml 1554 ml 35307 ml IV Total 567 ml 235 ml 52871 ml Packed Cells 965 ml Output Urine Total 2200 ml 1500 ml 17303 ml # Voids 12 # Bowel Movements 1 0 5 Exam PHYSICAL EXAMINATION: General appearance: Awake, alert, oriented x3. In no acute distress. HEENT: Mild pallor. No jaundice. No JVD. No lymphadenopathy. No thyroid enlargement. Heart: Regular rhythm. Normal S1, S2. No murmurs, rubs, or gallops. Abdomen: Soft, active bowel sounds. No hepatosplenomegaly. Extremity: 1+ edema on the lower extremity. Musculoskeletal: Positive for left shoulder tenderness and left sternoclavicular joint tenderness. Lab and Diagnostics Result Diagram: 07/27/16 0900 07/27/16 0900 Cardiac Echo Impressions Shows a tricuspid valve vegetation with moderate to severe regurgitation Assessment & Plan ASSESSMENT: 1. Acute kidney injury, resolved. 2. Fluid overload. 3. MSSA acute tricuspid valve endocarditis with septic pulmonary emboli currently on the IV nafcillin infusion 12 g over 24 hours until August 31. 3. Suspected osteomyelitis of the left sternoclavicular joint. MRI: Abnormal left sternoclavicular joint. There is fluid within the joint. There is enhancing edema around the joint. There is slight increased signal within the head of the clavicle adjacent to the joint. To evaluate for infection suggest needle aspiration of the joint. 5. Left shoulder pain status post MRI showed no osteomyelitis. 6. Polysubstance abuse. 7. Anemia. PLAN: 1. IV lasix 20 mg x1. 2. start PO lasix 40 mg daily, KCL and Mg supplement. 3. No objection to proceed with MRI spine with and without gadolinium. GI Prophylaxis: Not indicated VTE Prophylaxis: Sub-Q Heparin (Unfractionated) VTE Mechanical Devices: Intermittant Pneumatic CD Resuscitation Status: CPR: Attempt Resuscitation Adal Garcia MD Jul 28, 2016 10:50
--- NOTE | 2016-07-28 10:56 | NUR ---
Spoke with [facility] and faxed updated clinicals. She is thinking auth will be done today and she will update when she knows. Updated [employer] Addendum: 07/28/16 at 1520 by JASON FONSECA CM Patient has insurance authorization and can be transferred when ready. Updated [employer] and MICAH SESAY
[2016-07-28] MEDS: Potassium Chloride 20 mEq SR Tablet PO SCH (12:43)
--- NOTE | 2016-07-28 15:37 | PCM.PNMED ---
Subjective Date of Service Jul 28, 2016 Subjective complains of worsening back pain and ongoing upper chest pain today. Exam Vital Signs Vital Sign - Last Date Time Temp Pulse Resp B/P Pulse Ox O2 Delivery O2 Flow Rate FiO2 07/28/16 12:44 36.8 07/28/16 10:28 80 22 147/106 97 Room Air Intake and Output 07/27/16 07/27/16 07/28/16 Cumulative From/Thru 15:00 23:00 07:00 07/15/16 18:29 - 07/28/16 05:50 Intake Total 1407 ml 1789 ml 83884 ml Output Total 2200 ml 1500 ml 31938 ml Balance -793 ml 289 ml 64765 ml Intake Oral 840 ml 1554 ml 38649 ml IV Total 567 ml 235 ml 73166 ml Packed Cells 965 ml Output Urine Total 2200 ml 1500 ml 39097 ml # Voids 12 # Bowel Movements 1 0 5 Exam General: Alert, Cooperative, No Acute Distress Eyes: Scleral Anicteric Mouth: Mucous Membr Moist/Brave Neck: Supple Chest & Lungs: Chest Wall Normal, Clear to auscultation bilat Cardiovascular: Regular Rate/Rhythm Abdomen: Non-tender, Non-distended, Normoactive bowel tones, Soft Extremities: No cyanosis/clubbing. 2+ pitting edema in LE bilat. Neurological: Grossly Neurologically Intact, Normal Speech IVs and Medications Medications Reviewed: Medications were reviewed in detail Lab and Diagnostics Result Diagram: 07/27/16 0900 07/28/16 0945 Cardiac Echo Impressions Shows a tricuspid valve vegetation with moderate to severe regurgitation Assessment & Plan 25-year-old IV heroin and meth using female presenting with shortness of breath and chest pain and admitted for severe sepsis with pneumonia and urinary tract infection. She was diagnosed with endocarditis. # Acute Sepsis, poa. clinically improved -Multiple blood cultures have come back MSSA. Her last set appears to be sterile. 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 Present on admission. ongoing -has severe tricuspid regurgitation by echo. -per earlier notes cardiology "does not think it JOÃO would be appropriate unless it would change the plan of care" -appreciate ID consult. will f/u w/ recs -c/w Nafcillin with the tentative stop date of # Likely acute septic left sternoclavicular joint. likely present on admission. - Ortho consulted today (per recommendation by general surgery). - will hopefully be able to drain some aspirate and send for culture. - will f/u w/ further recs as well - c/w current Abx as noted above # Acute back pain. poa. ongoing - will check MRI of spine as well # Acute kidney injury. Present on admission. Improving - Initially treated with IV fluids. These have been stopped - appreciate Nephrology consult. will f/u w/ recs # Generalized anasarca, fluid overload. Improving - further diuresis per nephrology recs # Acute diarrhea. no poa. improving - c. diff ruled out. # Left shoulder pain. - Evaluated by orthopedic surgery, considered not a surgical issue at this point. - 2 MRIs have been done thus far. # Substance abuse. Chronic. Present on admission. Active - uses IV meth and heroin. - Has been on Suboxone and methadone in the past - Social work referral. - Careful adjustments of pain meds considering her history. Her IV narcotics have been discontinued. It is hospital policy not to give IV narcotics to an IV drug user. - A reasonable goal would be to slowly wean her oral pain medications down during her hospital stay - c/w Clonidine and Gabapentin which may help her with her withdrawal symptoms. # Anemia. - No evidence of active bleeding - Negative hemolytic workup, she did get 2 units of packed red blood cells - f/u # Urinary tract infection. Acute. Present on admission. - Resolved. Dispo: as noted above GI Prophylaxis: Not indicated VTE Prophylaxis: Sub-Q Heparin (Unfractionated) VTE Mechanical Devices: Intermittant Pneumatic CD Resuscitation Status: CPR: Attempt Resuscitation Time spent 40 min David Sy Jul 28, 2016 15:37
--- NOTE | 2016-07-28 16:26 | NUR ---
Social work Continued Discharge Planning: [facility] SW to follow for transfer pending clinical status and possible draining. Surgery to be consulted. SW to follow. PLAN: [facility]
--- NOTE | 2016-07-28 18:06 | DRSVH ---
PROCEDURE: MRI THORACIC SPINE WITH AND WITHOUT CONTRAST ([id number]) INDICATIONS: endocarditis. onogoing back pain. h/o IVDU TECHNIQUE: Noncontrast sagittal T1 spin echo and T2 fast spin echo, sagittal STIR, axial T1 and T2 fast spin ech o through the thoracic spine. After the administration of contrast, axial and sagittal T1 spin echo with fat saturation through the thoracic spine. COMPARISON: None. FINDINGS: Image quality: Evaluation limited by motion artifact. Alignment and curvature: There is normal bony alignment. Marrow: Marrow is of normal overall signal. No acute vertebral body compression fractures. There i s a small round focus of T2 hyperintensity within the T6 vertebral body with isointense T1 signal to the marrow length representing a hemangioma. A smaller focus is also noted within T7. Spinal cord: Visualized spinal cord is of normal signal and size, without abnormal enhancement. Paraspinous soft tissues: No paravertebral masses or fluid collections. There are moderate sized bi lateral pleural effusions. Miscellaneous: Central canal and foramina appear widely patent at all scanned levels. IMPRESSION: 1. No evidence of osteomyelitis or discitis in the thoracic spine. 2. Moderate-sized bilateral pleural effusions. Dictated by: Sulaiman Haines M.D. on 07/28/2016 at 18:04 Approved by: Sulaiman Haines M.D. on 07/28/2016 at 18:04
--- NOTE | 2016-07-28 18:12 | DRSVH ---
PROCEDURE: MRI CERVICAL SPINE WITH AND WITHOUT CONTRAST ([id number]) INDICATIONS: endocarditis. onogoing back pain. h/o IVDU TECHNIQUE: Noncontrast sagittal T1 spin echo, sagittal STIR, foraminal oblique sagittal T2 fast spin echo, axial gradient echo or T2 fast spin echo through the cervical spine. After the administration of contrast , axial and sagittal T1 spin echo with fat saturation through the cervical spine. Sagittal T2 was un able to perform. Patient unable to tolerate additional imaging. COMPARISON: None. FINDINGS: Image quality: There is motion artifact limiting evaluation. Patient also limited due to absence of a sagittal T2 sequence.. Alignment and curvature: There is straightening of the cervical lordosis. Marrow: Marrow is normal in overall signal, without suspicious enhancement. Spinal cord: Visualized spinal cord has normal size. No cerebellar tonsillar herniation. No defini te abnormal intramedullary enhancement. Paraspinous soft tissues: No paravertebral masses or fluid collections. C2-3: Within normal limits. C3-4: Within normal limits. C4-5: Within normal limits. C5-6: Minimal disc bulge with minimal spinal canal narrowing. There is minimal uncovertebral joint a rthropathy. No neuroforaminal narrowing. C6-7: Within normal limits. C7-T1: Minimal uncovertebral joint arthropathy with minimal left neuroforaminal narrowing. IMPRESSION: 1. No evidence of discitis-osteomyelitis in the cervical spine. 2. No high-grade spinal canal or neuroforaminal narrowing. Dictated by: Sulaiman Haines M.D. on 07/28/2016 at 18:10 Approved by: Sulaiman Haines M.D. on 07/28/2016 at 18:10
--- NOTE | 2016-07-28 18:40 | DRSVH ---
PROCEDURE: MRI LUMBAR SPINE WITH AND WITHOUT CONTRAST ([id number]) INDICATIONS: endocarditis. ongoing back pain. h/o IVDU TECHNIQUE: Noncontrast sagittal T1 spin echo and T2 fast spin echo, sagittal STIR, axial T1 and T2 fast spin ech o through the lumbar spine. In cases with scoliosis, additional coronal T2 fast spin echo may be per formed. After the administration of contrast, sagittal and axial T1 spin echo with fat saturation th rough the lumbar spine. COMPARISON: None. FINDINGS: Image quality: Evaluation markedly limited due to motion artifact and artifact secondary to anasarca. Alignment and curvature: There is preserved bony alignment. Marrow: Marrow is of grossly normal overall signal given limitations of the study. No acute vertebr al body compression fractures. No suspicious marrow enhancement. Spinal cord: Conus medullaris terminates at the L1 level. Visualized spinal cord demonstrates miguelangel l signal, without suspicious enhancement. Paraspinous soft tissues: No paravertebral masses or fluid collections. There is diffuse anasarca w ithin the visualized abdominal wall. L1-L2: No spinal canal or neuroforaminal narrowing. L2-L3: No spinal canal or neuroforaminal narrowing. L3-L4: No spinal canal or neuroforaminal narrowing. L4-L5: No spinal canal or neuroforaminal narrowing. L5-S1: No spinal canal or neuroforaminal narrowing. IMPRESSION: 1. No evidence of discitis-osteomyelitis in the lumbar spine. 2. No spinal canal or neuroforaminal narrowing. Dictated by: Sulaiman Haines M.D. on 07/28/2016 at 18:38 Approved by: Sulaiman Haines M.D. on 07/28/2016 at 18:38
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
[2016-07-29] VITALS (10 sets, daily range): BP systolic 135–186; BP diastolic 79–133; PULSE 90–119; RESP 15–19; O2SAT 93–100
[2016-07-29] MEDS: Heparin 5,000 Unit/mL Inj SUBQ SCH ×3 (01:17→16:41)
[2016-07-29] MEDS: Ondansetron 2 mg/mL 2 mL Inj IVPUSH PRN ×3 (02:16→20:37)
--- NOTE | 2016-07-29 05:49 | NUR ---
pt is finally asleep nurse asked to pass vitals on to day shift. Addendum: 07/29/16 at 0550 by ARABELLA ALVARADO CNA Amended: Links added.
--- NOTE | 2016-07-29 05:52 | NUR ---
Sleep/ Pain; Pt states the pain medication "doesn't do much of anything, except keep her from going into withdrawals". Does appear to give some pain relief as she is more relaxed and cooperative with all care when the oral Dilaudid has been given as ordered PRN. Given IV Lorazepam at HS for assist in sleeping. Did sleep for several hours and the awoke agitated. "I just can't seem to get comfortable, just toss and turn". Given second dose of IV Ativan at that time, with good effect. MRI completed this afternoon. Continue w/ updated care plan. AM -05-06 VS held at this time. Patient is actually sleeping soundly. Obtained Blood draw samples w/o awakening pt. VS have been unchanged/ stable for many days/week. [employer]AL[employer] SPECIALIST advised.
[2016-07-29 06:03] LABS: Mean Corpuscular Hemoglobin 27.4 pg (27.0-35.0); Mean Corpuscular Volume 90.7 fL (81-100)
[2016-07-29] MEDS: lamoTRIgine 100 mg Tablet PO SCH ×2 (08:41→22:02)
[2016-07-29] MEDS: Potassium Chloride 20 mEq SR Tablet PO SCH (08:41)
[2016-07-29] MEDS: hydrOXYzine Pamoate 25 mg Capsule PO SCH ×2 (08:41→12:41)
--- NOTE | 2016-07-29 09:54 | NUR ---
Social work Continued Discharge Planning: Patient accepted to [facility] and auth obtained. Per report in rounds, mention of possible transfer to [facility] as a result to chest abscess.SW to follow for transfer to [facility] or [facility], pending clinical status. PLAN: Accepted to [facility] and auth obtained. Mention of possible transfer to [facility], pending clinical course. Cheikh CURRAN
[2016-07-29] MEDS: DEXTROSE 5% IV SCH (10:16)
[2016-07-29] MEDS: NAFCILLIN IV SCH (10:16)
--- NOTE | 2016-07-29 11:29 | PROG NOTE ---
[address] [address] PROGRESS NOTE PATIENT: RAJANI ALSTON : 1990 MR#: [id number] ADMIT: 07/15/2016 JOB ID: [id number] DATE: 07/29/2016 INFECTIOUS DISEASE FOLLOWUP NOTE: REASON FOR FOLLOWUP: Tricuspid endocarditis with septic pulmonary emboli, pleural effusions, left shoulder infection, left septic sternoclavicular joint, back pain and loose stools. INTERVAL HISTORY: Overnight, the patient states she felt chilled at times but no fever or sweats. No significant headache. She continues to complain of back pain, which just yesterday led to imaging of her entire spine. In addition, she reports she is having loose stools 5-6 times per day. Other complaints include persistent pain and swelling at the left sternoclavicular joint. This was evaluated yesterday by Orthopedics, and they recommended aspiration and culture of the fluid, which is seen around the sternoclavicular joint on MRI scan. The patient refused, as she believed this would be painful but this morning she tells me she will go through with it if she receives adequate analgesia. Another major complaint is that she seems to have increasing swelling in her lower abdomen and legs. She thinks that this is actually worsening as the days go by. PHYSICAL EXAMINATION: Reveals a depressed-appearing young woman, in no acute distress. Temp 36.6, and she has been afebrile now for almost a full week. Pulse 110 at rest, respiratory rate 19, blood pressure 186/183. Her blood pressure tends to be quite labile and sometimes much more normal. She is saturating 93% on room air. Eyes without conjunctival hemorrhages. Her left sternoclavicular joint continues to be swollen, though not erythematous. It is quite painful. The left shoulder now has a full range of motion, both active and passive, though the patient does note pain with movement of the shoulder. She is able to do it for the first time in her hospital stay. Lung exam: Little change with some diffuse crackles and decreased breath sounds at the bases. Cardiac tones without murmur. Back: Diffuse tenderness as was noted yesterday. She has 2 to 3+ edema involving both legs at this point. LABORATORIES: Include white count 9800 today, crit 24, platelets 441. Creatinine 1.1. LFT normal. Procalcitonin 0. All followup blood cultures remain negative. A C. diff done on the was negative. IMAGING: The MRI scans of the cervical, lumbar and thoracic spine showed no evidence of vertebral osteo or epidural abscess. The chest MRI scan done a couple of days ago showed left sternoclavicular effusion. 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 At this point, I am pleased that we have control of her bacteremia and now have consistently negative blood cultures but I am worried about multiple things including what appears to be worsening anasarca, which is probably on the basis of right-sided heart failure and degeneration of the tricuspid valve. Other concerns here include the left sternoclavicular joint, which should be aspirated and may be debrided but the patient so far has refused aspiration secondary to concern about the pain. The patient also continues to look short of breath, though she denies it, and when she ambulates her respiratory rate is quite high, and I wonder if this is a function of perhaps some left heart failure we are not aware of or perhaps just multiple emboli in her lungs and pleural effusions. RECOMMENDATIONS: 1. I would ask back Orthopedics if they are willing to provide a little more analgesia. If they are willing to provide a little more anesthesia for the patient, she will agree to have her sternoclavicular joint aspirated, and I think this would be important. 2. Repeat two-view chest x-ray. It will be ordered to assess the progress of her pulmonary emboli and pleural effusions. 3. Repeat echo will be ordered to look at her tricuspid valve, as well as her right-sided filling pressures. It may be that this patient will require tricuspid valve surgery and at that time, they could also debride her left sternoclavicular joint. I realize this is not a popular option in a patient who was basically doing IV drugs right up until the moment of admission and who may be likely to relapse but if the patient's anasarca gets worse, I am not certain what other options might be available. 4. I have no objection to the patient receiving some Imodium or similar product for diarrhea, as we have evidence she does not have C. diff.
[2016-07-29] MEDS ORDERED: Furosemide 10 mg/mL 4 mL Inj IVPUSH ONE (12:00)
--- NOTE | 2016-07-29 12:22 | NUR ---
spiritual care: follow up lengthy conversational visit. pt reflected on medical situation, care and plan. Explored dynamics in close relationships, self care and longerterm goals. Pt independent, feeling isolated and coming to terms with hopes, goals, barriers and strengths as she looks toward surgery in [place] and recovery process at [facility]. pt agreeable for spiritual care connection/referral
[2016-07-29] MEDS ORDERED: Furosemide 10 mg/mL 2 mL Inj ONE (12:37)
--- NOTE | 2016-07-29 12:38 | DRSVH ---
[facility] [address] [place] [address] Echocardiogram Report Name: RAJANI ALSTON JStstephane Mirza e: 07/29/2016 [place] ght: 64 in Hospital Exam Location: [facility] ght: 179 lb Gender: Female BSA : 1.8 m2 : 1990 Age: 25 yrs BP: 173/131 mmHg Reason For Study: WORSENING CHF, EVAL VALVES AND RIGHT SIDE PRESSURES Ordering Physician: [facility] Performed By: Della Joseph Referring Physician: DR. Marilou MEYERS, DR. DAMON Interpretation Summary The left ventricle is normal in size, wall thickness, and systolic function without any focal wall motion abnormalities. The ejection fraction is estimated to be 55-60%. There is trace mitral regurgitation. No aortic regurgitation is present. Vegetation is once again noted on the tricuspid valve. (1.1 x 1.6 cm) The right ventricular systolic pressure is estimated at 48 mmHg assuming a right atrial pressure of 8 mm Hg. Procedure: A two-dimensional transthoracic echocardiogram with color flow and Doppler was performed. The study quality was technically adequate. Comparison is made with the echocardiogram of 07-17-2016. The patient was in normal sinus rhythm during the exam. Left Ventricle: The left ventricle is normal in size, wall thickness, and systolic function without any focal wall motion abnormalities. The ejection fraction is estimated to be 55-60%. Spectral Doppler of the mitral valve shows a normal E/A wave ratio. Right Ventricle: The right ventricle is normal in size and function. Atria: Both atria are normal in size. There is no Doppler evidence for an atrial septal defect. Mitral Valve: The mitral valve leaflets appear normal. There is no evidence of stenosis, fluttering, or prolapse. There is systolic anterior motion of the chordal apparatus. There is no vegetation seen on the mitral valve. There is trace mitral regurgitation. Aortic Valve: The aortic valve is trileaflet. The aortic valve opens well. There is no aortic valvular vegetation. No aortic regurgitation is present. Tricuspid Valve: Vegetation is once again noted on the tricuspid valve. (1.1 x 1.6 cm). There is severe tricuspid regurgitation. The right ventricular systolic pressure is estimated at 48 mmHg assuming a right atrial pressure of 8 mm Hg. Pulmonic Valve: The pulmonic valve leaflets are thin and pliable; valve motion is normal. There is no vegetation on the pulmonic valve. There is no pulmonic valvular regurgitation. Great Vessels: The IVC is dilated (diameter is greater than 2.1 cm) yet it collapses greater than 50% with a sniff. This suggests a right atrial pressure of 8 mm Hg. Pericardium/ Pleura There is no pericardial effusion. Bilateral pleural effusion. MMode/2D Measurements & Calculations LVIDd: 5.2 cm LA A2 area RA long axis LV james. diameter/BSA LVIDs: 3.2 cm (cm/m^2): 2.9 FS: 38.2 % RA area IVSd: 0.95 cm LA A4 area LVPWd: 0.98 cm : 16.5 cm LA length (vol) RA vol : 51.0 ml LA vol: 59.8 ml RA LA vol index : 27.9 mm2 : 32.8 ml/m2 LV sys. diameter/BSA RVD2 (mid) (cm/m^2): 1.8 : 3.6 cm Doppler Measurements & Calculations Ao V2 max MV E max fidel MV E/A: 1.5 TR max fidel : 112.6 cm/sec : 117.5 cm/sec MV A dur : 318.4 cm/sec Ao max P.1 mmHg MV A max fidel : 0.10 sec TR max PG Ao mean P.2 mmHg : 76.3 cm/sec : 40.5 mmHg LVOT Max Fidel MV P1/2t: 37.9 msec : 104.7 cm/sec sev ratio: 0.85 MV P1/2t max fidel Ao V2 mean LV V1 max PG : 85.6 cm/sec Ao V2 VTI: 22.1 cm LV V1 VTI MVA(P1/2t): 5.8 cm2 : 18.7 cm Electronically signed by: Kulwant Urena on Reading Physician:07/29/2016 12:37 PM
--- NOTE | 2016-07-29 13:08 | DRSVH ---
PROCEDURE: X-RAY CHEST, TWO VIEWS ([id number]) INDICATIONS: f/u septic pulm emboli TECHNIQUE: 2 views of the chest were acquired. COMPARISON: [facility], CR, XR CHEST 1VW, 07/18/2016, 9:45. [facility], CR, XR CHEST 1VW (PORTABLE), 07/16/2016, 12:31. FINDINGS: Surgical changes and devices: None. Lungs and pleura: No pleural effusions or pneumothorax. Lungs are abnormal with what appears to be mildly worsening pneumonia, bilaterally, shaded with bilateral left greater than right subpulmonic pl eural effusions. Mediastinum: Mediastinal contours are normal. Heart size is normal. Bones and chest wall: No suspicious bony abnormalities. Soft tissues appear unremarkable. IMPRESSION: Subpulmonic pleural effusions bilaterally right, and there also appears to be left greate r than right pneumonia in each lung base. The appearance has worsened sequentially from 07/16/16 thr ough 07/24/16 2 the current study. Dictated by: Jaya Carranza M.D. on 07/29/2016 at 13:05 Approved by: Jaya Carranza M.D. on 07/29/2016 at 13:05
--- NOTE | 2016-07-29 14:38 | PCM.PNMED ---
Subjective Date of Service Jul 29, 2016 Subjective Denies any new issues/complaints. says may be open to allowing ortho to attempt chest wall draining. Exam Vital Signs Vital Sign - Last Date Time Temp Pulse Resp B/P Pulse Ox O2 Delivery O2 Flow Rate FiO2 07/29/16 12:52 37.4 92 18 159/100 100 Room Air Intake and Output 07/28/16 07/28/16 07/29/16 Cumulative From/Thru 15:00 23:00 07:00 07/15/16 18:29 - 07/29/16 05:48 Intake Total 1420 ml 1283 ml 85276 ml Output Total 1600 ml 950 ml 04652 ml Balance -180 ml 333 ml 00331 ml Intake Oral 1080 ml 1038 ml 51372 ml IV Total 340 ml 245 ml 62261 ml Packed Cells 965 ml Output Urine Total 1600 ml 950 ml 23594 ml # Voids 12 # Bowel Movements 0 0 5 Exam General: Alert, Cooperative, No Acute Distress Eyes: Scleral Anicteric Mouth: Mucous Membr Moist/[place] Neck: Supple Chest & Lungs: Chest Wall Normal, Clear to auscultation bilat Cardiovascular: Regular Rate/Rhythm Abdomen: Non-tender, Non-distended, Normoactive bowel tones, Soft Extremities: No cyanosis/clubbing. 2+ pitting edema in LE bilat. Neurological: Grossly Neurologically Intact, Normal Speech IVs and Medications Medications Reviewed: Medications were reviewed in detail Lab and Diagnostics Result Diagram: 07/29/16 0759 07/29/16 0545 Cardiac Echo Impressions Shows a tricuspid valve vegetation with moderate to severe regurgitation Assessment & Plan 25-year-old IV heroin and meth using female presenting with shortness of breath and chest pain and admitted for severe sepsis with pneumonia and urinary tract infection. She was diagnosed with endocarditis. # Acute Sepsis, poa. clinically improved -Multiple blood cultures have come back MSSA. Her last set appears to be sterile. 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 Present on admission. ongoing -has severe tricuspid regurgitation by echo. -per earlier notes cardiology "does not think it JOÃO would be appropriate unless it would change the plan of care" -appreciate ID consult. will f/u w/ recs -c/w Nafcillin with the tentative stop date of -f/u repeat echo # Likely acute septic left sternoclavicular joint. likely present on admission. - appreciate ortho consult. pt reportedly refused recommendation for I&D with local anesthesia - pt was open to idea of possible transfer to be seen by CT surgery at other hospital but per ID notes today pt may be open to idea of I&D by ortho here. - will f/u w/ further recs as well - c/w current Abx as noted above # Acute back pain. poa. ongoing - MRI of spine unremarkable # Acute kidney injury. Present on admission. Improving - Initially treated with IV fluids. These have been stopped - appreciate Nephrology consult. will f/u w/ recs # Generalized anasarca, fluid overload. Improving - further diuresis per nephrology recs # Acute diarrhea. no poa. improving - c. diff ruled out. # Left shoulder pain. - Evaluated by orthopedic surgery, considered not a surgical issue at this point. - 2 MRIs have been done thus far. # Substance abuse. Chronic. Present on admission. Active - uses IV meth and heroin. - Has been on Suboxone and methadone in the past - Social work referral. - Careful adjustments of pain meds considering her history. Her IV narcotics have been discontinued. It is hospital policy not to give IV narcotics to an IV drug user. - A reasonable goal would be to slowly wean her oral pain medications down during her hospital stay - c/w Clonidine and Gabapentin which may help her with her withdrawal symptoms. # Anemia. - No evidence of active bleeding - Negative hemolytic workup, she did get 2 units of packed red blood cells - f/u # Urinary tract infection. Acute. Present on admission. - Resolved. Dispo: as noted above GI Prophylaxis: Not indicated VTE Prophylaxis: Sub-Q Heparin (Unfractionated) VTE Mechanical Devices: Intermittant Pneumatic CD Resuscitation Status: CPR: Attempt Resuscitation Time spent 40 min David Sy Jul 29, 2016 14:38
[2016-07-29] MEDS ORDERED: Lidocaine 1%-Epi 1:100,000 20 mL Inj ONE (17:49)
--- NOTE | 2016-07-29 18:09 | PCM.PNORTH ---
Subjective Date of Service: Jul 29, 2016 Visit Information: Reason for Visit Pneumonia, Ivda, Sepsis Surgery/Surgery Date Post-Op Day # Date of Admission: Jul 15, 2016 at 23:32 Hospital Day # Subjective Patient reports that she would now like to have her left sternoclavicular joint aspirated. Patient reports no change since yesterday. Objective Exam Objective CONST: WD,WN, NAD, A+OX3 OCULAR: EOMI, no conjunctivitis/icterus ENT: no deformities, scars or lesions CARDIAC: Pulse is regular. No cyanosis,clubbing,edema RESP: regular,unlabored MSK: normal light touch median, ulnar, radial, lateral antebrachial, axillary nerve distribution. Intact AIN, PIN, u, r, ax motor. 2+ r pulse SHOULDER - scars, ++ left sternoclavicular joint swelling, no erythema - atrophy or asymmetry. TTP [id number] ROM left R/ L Strength/Pain 150/100 FF 4+/5 / + 130/90 ABD 4+/5 / + 30/30 ER 4+/5 / + L1/L1 IR 5/5 / - +painful arc, - pain with passive stretch, - pseudoparalysis, - crepitus Signs deferred Vital Signs and I/O Vital Sign - Last Date Time Temp Pulse Resp B/P Pulse Ox O2 Delivery O2 Flow Rate FiO2 07/29/16 17:24 36.9 93 15 177/129 98 Room Air Intake and Output 07/28/16 07/28/16 07/29/16 Cumulative From/Thru 15:00 23:00 07:00 07/15/16 18:29 - 07/29/16 05:48 Intake Total 1420 ml 1283 ml 70162 ml Output Total 1600 ml 950 ml 03182 ml Balance -180 ml 333 ml 35678 ml Intake Oral 1080 ml 1038 ml 56214 ml IV Total 340 ml 245 ml 11794 ml Packed Cells 965 ml Output Urine Total 1600 ml 950 ml 32286 ml # Voids 12 # Bowel Movements 0 0 5 Lab & Micro Results Laboratory Tests Test 07/29/16 05:45 07/29/16 07:59 White Blood Count 9.8th/mm3 (3.8-10.1) Red Blood Count 2.48mil/mm3 (3.90-5.20) Hemoglobin 6.8g/dL (12.0-15.6) 7.1g/dL (12.0-15.6) Hematocrit 22.5% (35.0-46.0) 23.8% (35.0-46.0) Mean Corpuscular Volume 90.7fL (81-100) Mean Corpuscular Hemoglobin 27.4pg (27.0-35.0) Mean Corpuscular Hemoglobin Concent 30.2% (32.0-37.0) Red Cell Distribution Width 14.9% (12.3-15.4) Platelet Count 441bil/L (150-400) Sodium Level 142mEq/L (134-144) Potassium Level 4.6mEq/L (3.5-5.2) Chloride Level 107mEq/L (97-108) Carbon Dioxide Level 28mmol/L (18-29) Blood Urea Nitrogen 17mg/dL (6-20) Creatinine 1.10mg/dL (0.57-1.00) Estimat Glomerular Filtration Rate 88mL/min (>59) Glucose Level 96mg/dL (60-99) Calcium Level 7.8mg/dL (8.5-10.1) Microbiology 07/23/16 Blood Culture - Final, Complete NO GROWTH AFTER 5 DAYS 07/26/16 C. difficile DNA Amplification - Final, Complete 07/16/16 Adenovirus DNA (PCR) - Final, Complete Not Detected 07/16/16 Coronavirus 229E PCR - Final, Complete Not Detected 07/16/16 Coronavirus HKU1 PCR - Final, Complete Not Detected 07/16/16 Coronavirus NL63 PCR - Final, Complete Not Detected 07/16/16 Coronavirus OC43 PCR - Final, Complete Not Detected 07/16/16 Influenza Type A (PCR) - Final, Complete Not Detected 07/16/16 Influenza Type B (PCR) - Final, Complete Not Detected 07/16/16 Human Metapneumovirus (PCR) (GAMALIEL) - Final, Complete Not Detected 07/16/16 Rhinovirus (PCR)(GAMALIEL) - Final, Complete Not Detected 07/16/16 Parainfluenza Virus Type 1 (PCR) - Final, Complete Not Detected 07/16/16 Parainfluenza Virus Type 2 (PCR) - Final, Complete Not Detected 07/16/16 Parainfluenza Virus Type 3 (PCR) - Final, Complete Not Detected 07/16/16 Parainfluenza Virus Type 4 (NAAT) - Final, Complete Not Detected 07/16/16 Respiratory Syncytial Virus (PCR)AR - Final, Complete Not Detected 07/16/16 Chlamydia pneumoniae (PCR) - Final, Complete Not Detected 07/16/16 Mycoplasma pneumoniae DNA Detection - Final, Complete 07/26/16 Urine Culture - Final, Complete No growth (<1,000 organisms/mL) Result Diagram: 07/29/16 0759 07/29/16 0545 Assessment & Plan Impression Left sternoclavicular joint symptomatic effusion r/o infection Problems: Plan Plan Weight-bear as tolerated left upper extremity Patient was counseled with regards to aspiration of sternoclavicular joint. Verbal consent was obtained and under sterile conditions and sterile prep, 1 mL of clear straw-colored fluid was removed from the joint. 2 mL of lidocaine with epinephrine was injected after aspiration was performed. Recommend culture of fluid with antibiotic directed towards cultures. Continue medical management per primary Continue IV antibiotics to cover pseudomonas and staph aureus We will continue to follow along Please keep the affected extremity elevated when possible. You may use ice and /or heat as needed for comfort. All questions and concerns were addressed. Please feel free to call with any questions VTE Prophylaxis: Sub-Q Heparin (Unfractionated) Resuscitation Status: CPR: Attempt Resuscitation copies to: Kwame Shetty MD, Christopher L MD Jul 29, 2016 18:09
--- NOTE | 2016-07-29 18:12 | NUR ---
HTN pt SBP >170 and DBP >100. made aware, new order for 5mg IV hydralazine. Order sent to pharmacy and pharmacy called. Awaiting order to be processed by pharmacy.
[2016-07-29] MEDS ORDERED: hydrALAZINE 20 mg/mL Inj IV ONE (18:20)
[2016-07-30] VITALS (9 sets, daily range): BP systolic 155–180; BP diastolic 104–137; PULSE 93–125; RESP 18–22; O2SAT 94–99
[2016-07-30] MEDS: Heparin 5,000 Unit/mL Inj SUBQ SCH ×4 (00:44→23:37)
[2016-07-30] MEDS ORDERED: hydrALAZINE 20 mg/mL Inj IV ONE (05:30)
[2016-07-30 06:06] LABS: BASOPHILS % (AUTO) 0.4 % (0-3); EOSINOPHILS % (AUTO) 1.7 % (0-5); MONOCYTES % (AUTO) 6.3 % (4-12); Mean Corpuscular Hemoglobin 27.4 pg (27.0-35.0); Mean Corpuscular Volume 90.1 fL (81-100); NEUTROPHILS % (AUTO) 64.2 % (40-74); Platelet Count 480 bil/L (150-400)
--- NOTE | 2016-07-30 06:12 | NUR ---
HTN/Anxiety Pt hypertensive with BP this am 180/137. Heart rate in low 100s to 120s with activity. Pt denies any symptom. Md made aware. Hydralazine 5 mg IV given one time. Will continue to monitor. Anxiety r/t pain noted and Lorazepam given with some effectiveness. Pt noted to be sleeping for several hours. Dilaudid po given for c/o pain. She mentioned feeling that she's not getting appropriate pain meds. Patient openly discuss wanting to do Rehabilitation treatment.
[2016-07-30] MEDS: Potassium Chloride 20 mEq SR Tablet PO SCH (08:00)
[2016-07-30] MEDS: hydrOXYzine Pamoate 25 mg Capsule PO SCH ×2 (08:19→11:09)
[2016-07-30] MEDS: lamoTRIgine 100 mg Tablet PO SCH ×2 (08:19→20:35)
--- NOTE | 2016-07-30 08:47 | NUR ---
Spoke with Tammy at [facility] and she is still open to having patient transfer. Everything is in place for transfer. Tammy is suggesting that there be an MD to MD call regarding this patient because they are still feeling they can manage her care. is on today and he is overseeing patients, he can be reached at [phone] Updated WEATHERIZATION TECHNICIAN and MICAH RN
[2016-07-30] MEDS: NAFCILLIN IV SCH (09:33)
[2016-07-30] MEDS: Ondansetron 2 mg/mL 2 mL Inj IVPUSH PRN ×2 (09:33→19:52)
[2016-07-30] MEDS: DEXTROSE 5% IV SCH (09:33)
[2016-07-30] MEDS ORDERED: Furosemide 10 mg/mL 2 mL Inj IVPUSH ONE ×2 (12:55→20:00)
[2016-07-30] MEDS: MeTOProlol XL 50 mg ER24 Tablet PO SCH ×2 (13:36→23:37)
--- NOTE | 2016-07-30 14:20 | PCM.PNMED ---
Subjective Date of Service Jul 30, 2016 Subjective Pt has become more hypertensive, worsening LE swelling. feeling weak. Exam Vital Signs Vital Sign - Last Date Time Temp Pulse Resp B/P Pulse Ox O2 Delivery O2 Flow Rate FiO2 07/30/16 10:27 36.7 111 22 164/121 95 Room Air 07/30/16 05:10 2.00 Intake and Output 07/29/16 07/29/16 07/30/16 Cumulative From/Thru 15:00 23:00 07:00 07/15/16 18:29 - 07/30/16 05:52 Intake Total 815 ml 2387 ml 87603 ml Output Total 2300 ml 2100 ml 74976 ml Balance -1485 ml 287 ml 94103 ml Intake Oral 440 ml 2122 ml 82793 ml IV Total 375 ml 265 ml 80789 ml Packed Cells 965 ml Output Urine Total 2300 ml 2100 ml 79778 ml # Voids 12 # Bowel Movements 0 5 Exam General appearance: Awake, alert, oriented x3. In no acute distress. HEENT: Mild pallor. No jaundice. No JVD. No lymphadenopathy. No thyroid enlargement. Heart: Regular rhythm. Normal S1, S2. rubs, or gallops. Abdomen: Soft, active bowel sounds. No hepatosplenomegaly. Extremity: 2+ edema on the lower extremity. Musculoskeletal: Positive for left shoulder tenderness and left sternoclavicular joint tenderness. Lab and Diagnostics Result Diagram: 07/30/16 0542 07/30/16 0542 Cardiac Echo Impressions Shows a tricuspid valve vegetation with moderate to severe regurgitation Assessment & Plan 1. Acute kidney injury. 2. Fluid overload, suspected right-sided heart failure. 3. MSSA acute tricuspid valve endocarditis with septic pulmonary emboli currently on the IV nafcillin infusion 12 g over 24 hours 4. Subnephrotic-range proteinuria and hematuria r/o immune complex glomerulonephritis 5. Left shoulder pain status post MRI showed no osteomyelitis. 6. Suspected osteomyelitis of the left sternoclavicular joint. MRI: Abnormal left sternoclavicular joint. There is fluid within the joint. There is enhancing edema around the joint. There is slight increased signal within the head of the clavicle adjacent to the joint. To evaluate for infection suggest needle aspiration of the joint. 7. Polysubstance abuse. 8. Anemia. PLAN: 1. IV lasix 20 mg BID today. 2. add chlorthalidone and metoprolol for BP control. 3. 2g Na diet. 4. repeat spot urine protein/cr ratio and UA. 5. C3/C4, HELEN, ANCA. 6. Check ferritin, if > 200 will give aranesp in am. GI Prophylaxis: Not indicated VTE Prophylaxis: Sub-Q Heparin (Unfractionated) VTE Mechanical Devices: Intermittant Pneumatic CD Resuscitation Status: CPR: Attempt Resuscitation Adal Garcia MD Jul 30, 2016 14:20
--- NOTE | 2016-07-30 15:15 | NUR ---
NUTRITION FOLLOW-UP: ASSESS: 25 YO female admitted with shortness of breath, chest pain, PRISCILA, pneumonia, and UTI. Found to have endocarditis with septic pulmonary emboli. On IV antibiotics. Pt's wt has increased 23 kg since admit d/t fluid overload. PO intake good at 50-100% most meals. Nephrology is involved for PRISCILA PMHx: Homelessness, IV heroin and meth use, seizure disorder, UTI's, pyelonephritis, smoking, gonorrhea. DIET: Soft. PO 75-100%. + magic cup and cottage cheese w/fruit on all trays LABS: Reviewed. [employer] Tester 1.24, Ca 8.0, Alb 2.2 MEDICATIONS: Reviewed. Lasix GI symptoms / stool: 2 BM 07/27. Skin Integrity: Hemanth 23 ANTHROPOMETRICS: Current Wt: 83.2 kg BMI: 33.5 kg/m2. Admit wt 60 kg (BMI: 24.2 kg/m2) ESTIMATED NEEDS: based of admit wt Calories: 1500 - 1800 kcal (25 - 30 kcal / kg) Protein: 72-90g/day (1.2-1.5g/kg) NUTRITION DIAGNOSIS: 1) Inadequate oral intake related to weakness and respiratory distress as evidence by PO refused-25% and pt reporting weakness and difficulty chewing dry/hard foods.--IMPROVED 2) Altered nutrition-related labs related to acute kidney injury, as evidenced by elevated BUN, creatinine.--IMPROVED INTERVENTION: 1) Continue current diet and snacks as ordered. MONITOR/EVALUATE: Diet, PO intake, wt, labs, GI/nutrition status. Follow per moderate nutrition risk guidelines. Addendum: 07/31/16 at [address] Pt. transferred to CCU with severe headache and severe HTN. Her nutrition does not appear to be impacted. Generally her PO intake is 100% trays, with occasional bites - 50%. Follow up per moderate nutrition risk guidelines.
--- NOTE | 2016-07-30 15:46 | NUR ---
Social Work Continued Discharge Planning: PEYTON spoke to [facility] rep Juanita, who was updated on plan. Per Juanita patient accepted and auth obtained. Aspiration took place today. Pending positive blood cultures, plan of [facility] transfer vs [facility] to be determined. [facility] rep states that if patient discharged over weekend contact to Tammy to be made, . PEYTON will continue to follow. PLAN:[facility] accepts and auth obtained vs [facility] hospital transfer, pending clinical course Cheikh CURRAN
--- NOTE | 2016-07-30 15:48 | PCM.PNMED ---
Subjective Date of Service Jul 30, 2016 Subjective complains of generalized body aches and not adequate pain meds. wondering about possibility of starting Suboxone here in the hospital Exam Vital Signs Vital Sign - Last Date Time Temp Pulse Resp B/P Pulse Ox O2 Delivery O2 Flow Rate FiO2 07/30/16 14:56 93 19 155/104 Room Air 94 07/30/16 10:27 36.7 95 07/30/16 05:10 2.00 Intake and Output 07/29/16 07/29/16 07/30/16 Cumulative From/Thru 15:00 23:00 07:00 07/15/16 18:29 - 07/30/16 05:52 Intake Total 815 ml 2387 ml 70042 ml Output Total 2300 ml 2100 ml 05410 ml Balance -1485 ml 287 ml 14873 ml Intake Oral 440 ml 2122 ml 57337 ml IV Total 375 ml 265 ml 57810 ml Packed Cells 965 ml Output Urine Total 2300 ml 2100 ml 27931 ml # Voids 12 # Bowel Movements 0 5 Exam General: Alert, Cooperative, No Acute Distress Eyes: Scleral Anicteric Mouth: Mucous Membr Moist/[place] Neck: Supple Chest & Lungs: Chest Wall Normal, Clear to auscultation bilat Cardiovascular: Regular Rate/Rhythm Abdomen: Non-tender, Non-distended, Normoactive bowel tones, Soft Extremities: No cyanosis/clubbing. 2+ pitting edema in LE bilat. Neurological: Grossly Neurologically Intact, Normal Speech IVs and Medications Medications Reviewed: Medications were reviewed in detail Lab and Diagnostics Result Diagram: 07/30/16 0542 07/30/1642 Cardiac Echo Impressions Shows a tricuspid valve vegetation with moderate to severe regurgitation Assessment & Plan 25-year-old IV heroin and meth using female presenting with shortness of breath and chest pain and admitted for severe sepsis with pneumonia and urinary tract infection. She was diagnosed with endocarditis. # Acute Sepsis, poa. clinically improved -Multiple blood cultures have come back MSSA. Her last set appears to be sterile. 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 Present on admission. ongoing -has severe tricuspid regurgitation by echo. -per earlier notes cardiology "does not think it JOÃO would be appropriate unless it would change the plan of care" -appreciate ID consult. will f/u w/ recs -c/w Nafcillin with the tentative stop date of -repeat echo 07/29/16 shows ongoing endocarditis # Likely acute septic left sternoclavicular joint. likely present on admission. - post aspiration of fluid by ortho on 07/29/16. - f/u pending cultures - appreciate ortho consult. will f/u w/ recs - if cultures come back positive may need further transfer for CT surgery - c/w current Abx as noted above # Acute back pain. poa. ongoing - MRI of spine unremarkable # Acute kidney injury. Present on admission. ongoing - appreciate Nephrology consult. will f/u w/ recs - [id number] proteinuria and hematuria r/o immune complex glomerulonephritis per nephrology recs # Generalized anasarca and fluid overload, not present on admission - initially treated with large volume IV fluids. These have been stopped and now with significant bilateral LE edema - LE edema may also be due to right-sided heart failure - further diuresis per nephrology recs. resuming IV Lasix today per nephrology # Acute diarrhea. no poa. improving - c. diff ruled out. # Left shoulder pain. - Evaluated by orthopedic surgery, considered not a surgical issue at this point. - 2 MRIs have been done thus far. # Substance abuse. Chronic. Present on admission. Active - uses IV meth and heroin. - Has been on Suboxone and methadone in the past - Social work referral. - I discussed patient's case with Dr. Jensen (our ED physician who also prescribes and follows patient at clinic for Suboxone). Dr. Jensen graciously agrees to prescribe the patient Suboxone when she is ready for discharge and to follow her in her clinic provided that social work will setup the followup appointment and for Dr. Jensen to be contacted by the hospitalist team few days prior to patient's discharge. (Dr. Jensen's phone# is [phone] or he can be found in the ED). - If patient agrees to be off of narcotics for 24hours and try to tolerate her symptoms with Clonidine and Zofran for 24 hours will start her on Suboxone at 16mg/day at that point. # Anemia. - No evidence of active bleeding - Negative hemolytic workup, she did get 2 units of packed red blood cells earlier during this hospital - f/u # Urinary tract infection. Acute. Present on admission. - Resolved. Dispo: She has been accepted to long-term care facility but her discharge is pending further workup and treatment of her ID and nephrology issues as noted above GI Prophylaxis: Not indicated VTE Prophylaxis: Sub-Q Heparin (Unfractionated) VTE Mechanical Devices: Intermittant Pneumatic CD Resuscitation Status: CPR: Attempt Resuscitation Time spent 45 min David Sy Jul 30, 2016 15:48
--- NOTE | 2016-07-30 15:50 | PROG NOTE ---
[address] [address] PROGRESS NOTE PATIENT: RAJANI ALSTON : 1990 MR#: [id number] ADMIT: 07/15/2016 JOB ID: [id number] DATE: 07/30/2016 INFECTIOUS DISEASE FOLLOWUP NOTE: REASON FOR FOLLOWUP: Tricuspid MSSA endocarditis, with septic pulmonary emboli, septic left shoulder, septic left AC joint, bilateral pleural effusions, anasarca, right-sided heart failure and mild renal insufficiency. INTERVAL HISTORY: The patient continues to feel "lousy." She has tremendous edema in her legs which Nephrology is working to address with diuretics. She also has pain, especially at her left sternoclavicular joint. She continues to have some dry cough and a sensation of being short of breath at times. That said, she is now able to ambulate the halls without difficulty, and she no longer has fevers, chills, or sweats. PHYSICAL EXAMINATION: Reveals a chronically ill-appearing young woman. She is afebrile. Temperature 36.7. Pulse in the 90s today which is an improvement. Respiratory rate about 18. Blood pressure 155/104, though she has had diastolics as high as 137. O2 sats 94% on room air. Eyes without conjunctivitis. Mental status clear. Left sternoclavicular joint is swollen and moderately tender but not erythematous. Left shoulder has increasing range of motion with less and less pain. Lungs with rales diffusely at the bases as before. Cardiac tones: No murmur. Regular rate and rhythm. Anasarca on the lower extremities. LABORATORIES: Include a white count of 9500, hematocrit 24, platelets 480,000. Creatinine 1.24, which is up a bit. LFT are normal. Albumin 2.2. All followup blood cultures are now final and negative. The aspirate of the left sternoclavicular joint done yesterday by Ortho had no polys and no organisms but we await the final culture. A chest x-ray done yesterday that I had ordered shows subpulmonic pleural effusions and infiltrates at both lung bases. IMPRESSION: This is a difficult case of a young woman with really severe tricuspid endocarditis secondary to intravenous drug use with septic pulmonary emboli, septic joints, renal insufficiency, anasarca, now right-sided heart failure. The echo we had ordered a couple of days ago shows very high right ventricular pressures consistent with her ongoing tricuspid regurgitation and right heart failure which is manifested in her anasarca. The patient, from a microbiologic point of view, seems to be doing okay, as we now have confirmed multiple negative blood cultures, absence of fever and normalization of white count. That said, she has a great deal of metastatic disease and a lot of bowel damage which is going to be difficult. I discussed this case yesterday informally with one of the cardiology attendings. Given the fact that the patient was using drugs up until the day of admission, she is probably not an ideal candidate to be sent to [facility] or [facility] for valve replacement at this time in their opinion unless we should go ahead and treat this episode of endocarditis while the patient remains abstinent from drugs unless there is an emergency that would compel valve replacement in the near future. RECOMMENDATIONS: 1. Will continue with IV nafcillin. 2. Will continue to monitor the multiple sites of metastatic infection. 3. I discussed this case with Dr. Sy and recommended next week we consider a noncontrast CT of the chest just to better document what is going on there. 4. Otherwise, I think we are stable for the weekend.
--- NOTE | 2016-07-30 18:44 | NUR ---
Fluid retention Educated pt regarding fluid retention, to continue to walk halls 4 times a day, to elevate feet when asleep and anytime not walking the halls. Pt feels some SOB today that is increased from the past two days.
[2016-07-30] MEDS: Sodium Chloride LOK Flush 10 mL Syringe IVFLUSH PRN ×2 (20:35→21:22)
[2016-07-31] VITALS (9 sets, daily range): BP systolic 130–161; BP diastolic 88–114; PULSE 102–117; RESP 22–30; O2SAT 92–98
[2016-07-31] MEDS ORDERED: MeTOProlol XL 50 mg ER24 Tablet PO ONE ×4 (00:30→16:15)
[2016-07-31] MEDS: Sodium Chloride LOK Flush 10 mL Syringe IVFLUSH PRN ×2 (01:21→21:19)
--- NOTE | 2016-07-31 02:18 | NUR ---
Headache/HTN Md made aware of pt's c/o headache and persistent HTN tonight. Increased dose of Metoprolol given to pt. Head CT stat done per order. Md made aware of head CT result tonight. Order to transfer pt to CCU noted.
--- NOTE | 2016-07-31 02:48 | NUR ---
Transfer to 2014 Pt transferred to 2014 with all belongings, medications and charts. Report given to DDewRN.
[2016-07-31] MEDS: Labetalol 5 mg/mL 4 mL Inj IVPUSH PRN (02:50)
--- NOTE | 2016-07-31 03:08 | NUR ---
Pt transferred to ccu from [facility] with severe headache with severe htn. Pt is a/o x4, able to answer questions and follow commands appropriately. Transferred self from one bed to the other. Able to make needs known. BP 149/105. Pt continues to c/o severe headache. Lights dimmed and cool washcloth applied to forehead. Labatelol given with no results. Will start nicardipine gtt when available from pharmacy. Pt is moaning and groaning. Encouraged pt to try some relaxation techniques to assist with discomfort. Unable to give pain meds at this time, already given prior to transport. Will cont. to closely monitor pt's blood pressure.
[2016-07-31] MEDS: NiCARdipine 25 mg/250 mL D5W IV SCH ×8 (03:29→23:52)
[2016-07-31] MEDS: Heparin 5,000 Unit/mL Inj SUBQ SCH ×2 (07:51→15:44)
[2016-07-31] MEDS: hydrOXYzine Pamoate 25 mg Capsule PO SCH ×2 (07:52→12:27)
[2016-07-31] MEDS: lamoTRIgine 100 mg Tablet PO SCH ×2 (07:53→21:20)
[2016-07-31] MEDS: Potassium Chloride 20 mEq SR Tablet PO SCH (07:53)
[2016-07-31] MEDS: NAFCILLIN IV SCH ×2 (08:00→15:40)
[2016-07-31] MEDS: DEXTROSE 5% IV SCH ×2 (08:00→15:40)
[2016-07-31] MEDS ORDERED: MeTOProlol XL 50 mg ER24 Tablet PO SCH (08:30)
--- NOTE | 2016-07-31 08:36 | DRSVH ---
PROCEDURE: CT BRAIN WITHOUT CONTRAST ([id number]) INDICATIONS: Headache and HTN TECHNIQUE: Noncontrast 4.5 mm thick angled axial sections acquired from the foramen magnum to the vertex, with c oronal reformats. COMPARISON: [facility], CT, BRAIN W/O CONTRAST, 12/04/2013, 12:21. FINDINGS: Image quality: Excellent. CSF spaces: Basal cisterns are patent. No extra-axial fluid collections. Ventricles are normal in size and shape. Brain: There is bilateral symmetric cortical and subcortical hypoattenuation within the cerebral hem ispheres consistent with edema. No definite supratentorial lesions identified. No intracranial hemo rrhage or mass effect. There are low-lying cerebellar tonsils which appear similar to the prior stud y. Skull and face: Calvarium and visualized facial bones are intact, without suspicious lesions. Sinuses: Visualized sinuses and mastoids are clear. IMPRESSION: 1. Bilateral symmetric edema in the cerebellar hemispheres. Given patient's history of headache and hypertension, findings are compatible with hypertensive encephalopathy. The differential for the im aging appearance is bilateral cerebellar infarcts which are less likely given clinical history. 2. No intracranial hemorrhage, midline shift, or hydrocephalus. The findings were reported to the patient's nurse on 07/31/16 at 1:10 AM by [facility] radiology servi [facility]. Dictated by: Sulaiman Haines M.D. on 07/31/2016 at 8:32 Approved by: Sulaiman Haines M.D. on 07/31/2016 at 8:32
--- NOTE | 2016-07-31 12:46 | PCM.PNMED ---
Subjective Date of Service Jul 31, 2016 Subjective transferred to ICU for BP control. CT head showed brain edema, c/w hypertensive encephalopathy. (+) WILLS, now on nicardipine gtt. Exam Vital Signs Vital Sign - Last Date Time Temp Pulse Resp B/P Pulse Ox O2 Delivery O2 Flow Rate FiO2 07/31/16 12:00 36.6 102 27 133/94 96 Room Air 07/30/16 14:56 07/30/16 05:10 2.00 Intake and Output 07/30/16 07/30/16 07/31/16 Cumulative From/Thru 15:00 23:00 07:00 07/15/16 18:29 - 07/31/16 06:40 Intake Total 1000 ml 600 ml 02320 ml Output Total 1600 ml 2500 ml 66552 ml Balance -600 ml -1900 ml 55197 ml Intake Oral 1000 ml 44122 ml IV Total 600 ml 32016 ml Packed Cells 965 ml Output Urine Total 1600 ml 2500 ml 55650 ml # Voids 3 15 # Bowel Movements 5 Exam General appearance: Awake, alert, oriented x3. In no acute distress. HEENT: Mild pallor. No jaundice. No JVD. No lymphadenopathy. No thyroid enlargement. Heart: Regular rhythm. Normal S1, S2. rubs, or gallops. Abdomen: Soft, active bowel sounds. No hepatosplenomegaly. Extremity: 2+ edema on the lower extremity. Musculoskeletal: Positive for left shoulder tenderness and left sternoclavicular joint tenderness. Lab and Diagnostics Result Diagram: 07/30/16 0542 07/31/16 0520 Cardiac Echo Impressions Shows a tricuspid valve vegetation with moderate to severe regurgitation Assessment & Plan 1. 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 Fluid overload, suspected right-sided heart failure. 3. Hypertensive emergency with encephalopathy. 4. 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 Subnephrotic-range proteinuria and hematuria r/o immune complex glomerulonephritis 6. Left shoulder pain status post MRI showed no osteomyelitis. 7. Suspected osteomyelitis of the left sternoclavicular joint. MRI: Abnormal left sternoclavicular joint. There is fluid within the joint. There is enhancing edema around the joint. There is slight increased signal within the head of the clavicle adjacent to the joint. To evaluate for infection suggest needle aspiration of the joint. 8. Polysubstance abuse. 9. Anemia. PLAN: 1. IV lasix 40 mg q 8 hr. 2. continue chlorthalidone and increase metoprolol 100 mg BID. 3. add nicardipine XL 60 mg daily. 4. 2g Na diet. GI Prophylaxis: Not indicated VTE Prophylaxis: Sub-Q Heparin (Unfractionated) VTE Mechanical Devices: Intermittant Pneumatic CD Resuscitation Status: CPR: Attempt Resuscitation Adal Garcia MD Jul 31, 2016 12:46
[2016-07-31] MEDS: Furosemide 10 mg/mL 4 mL Inj IVPUSH SCH ×2 (13:55→21:18)
[2016-07-31] MEDS: NIFEdipine 30 mg ER24 Tablet PO SCH (14:03)
--- NOTE | 2016-07-31 15:41 | PCM.PNMED ---
Subjective Date of Service Jul 31, 2016 Subjective Darlene Miller is a 25-year-old female with past medical history significant for IV heroin and methamphetamine abuse who presented to the ED with shortness of breath and chest pain. Admitted for severe sepsis with pneumonia and urinary tract infection and subsequently found to have tricuspid valve endocarditis. Hospital day 15. Overnight: Patient was transferred to CCU from [facility] due to severe headache and hypertension. Blood pressure was unresponsive to metoprolol and a nicardipine drip was subsequently started. CT of the head was obtained and revealed bilateral symmetric edema in the cerebral hemispheres but no intracranial hemorrhage or midline shift. Today: Patient states headache is improved but still present. She describes it as a pressure and pounding sensation. She denies any visual changes, nausea, vomiting, palpitations, or chest pain. She endorses shoulder and generalized pain. She is requesting increased pain medication. Currently receiving oral Dilaudid. Discussed that we will change her pain medication regimen to something longer acting. Remaining review of systems is negative. Exam Vital Signs Vital Sign - Last Date Time Temp Pulse Resp B/P Pulse Ox O2 Delivery O2 Flow Rate FiO2 07/31/16 12:00 36.6 102 27 133/94 96 Room Air 07/30/16 14:56 07/30/16 05:10 2.00 Intake and Output 07/30/16 07/30/16 07/31/16 Cumulative From/Thru 15:00 23:00 07:00 07/15/16 18:29 - 07/31/16 06:40 Intake Total 1000 ml 600 ml 84686 ml Output Total 1600 ml 2500 ml 50296 ml Balance -600 ml -1900 ml 45441 ml Intake Oral 1000 ml 62332 ml IV Total 600 ml 87546 ml Packed Cells 965 ml Output Urine Total 1600 ml 2500 ml 96743 ml # Voids 3 15 # Bowel Movements 5 Exam General: Chronically ill-appearing young woman, in no acute distress. HEENT: Normocephalic, atraumatic. External ears without defect. Pupils equal, round, and reactive to light and accommodation. Neck: Supple with full range of motion. Cardiovascular: Tachycardic with regular rhythm with no murmurs, rubs, or gallops appreciated. Pulmonary: Lungs with coarseness at bilateral bases. Normal respiratory effort with no use of accessory muscles. Abdomen: Bowel tones present. Soft, nontender, nondistended. No hepatosplenomegaly or masses appreciated. Extremities: Left sternoclavicular joint swollen and tender with no erythema. 2 + lower extremity edema bilaterally. Neurological: Cranial nerves grossly intact. Normal muscle strength, tone, and bulk. Reflexes, coordination, and sensory function within normal limits. No known gait impairment. Lab and Diagnostics Result Diagram: 07/30/16 0542 07/31/16 0520 X-Rays, CTs and MRIs CT BRAIN WITHOUT CONTRAST ([id number]) IMPRESSION: 1. Bilateral symmetric edema in the cerebellar hemispheres. Given patient's history of headache and hypertension, findings are compatible with hypertensive encephalopathy. The differential for the imaging appearance is bilateral cerebellar infarcts which are less likely given clinical history. 2. No intracranial hemorrhage, midline shift, or hydrocephalus. The findings were reported to the patient's nurse on 07/31/16 at 1:10 AM by [facility] radiology services. Dictated by: Sulaiman Haines M.D. on 07/31/2016 at 8:32 Approved by: Sulaiman Haines M.D. on 07/31/2016 at 8:32 X-RAY CHEST, TWO VIEWS ([id number]) IMPRESSION: Subpulmonic pleural effusions bilaterally right, and there also appears to be left greater than right pneumonia in each lung base. The appearance has worsened sequentially from 07/16/16 through 07/24/16 2 the current study. Dictated by: Jaya Carranza M.D. on 07/29/2016 at 13:05 Approved by: Jaya Carranza M.D. on 07/29/2016 at 13:05 MRI CERVICAL SPINE WITH AND WITHOUT CONTRAST ([id number]) IMPRESSION: 1. No evidence of discitis-osteomyelitis in the cervical spine. 2. No high-grade spinal canal or neuroforaminal narrowing. Dictated by: Sulaiman Haines M.D. on 07/28/2016 at 18:10 Approved by: Sulaiman Haines M.D. on 07/28/2016 at 18:10 MRI LUMBAR SPINE WITH AND WITHOUT CONTRAST ([id number]) IMPRESSION: 1. No evidence of discitis-osteomyelitis in the lumbar spine. 2. No spinal canal or neuroforaminal narrowing. Dictated by: Sulaiman Haines M.D. on 07/28/2016 at 18:38 Approved by: Sulaiman Haines M.D. on 07/28/2016 at 18:38 MRI THORACIC SPINE WITH AND WITHOUT CONTRAST ([id number]) IMPRESSION: 1. No evidence of osteomyelitis or discitis in the thoracic spine. 2. Moderate-sized bilateral pleural effusions. Dictated by: Sulaiman Haines M.D. on 07/28/2016 at 18:04 Approved by: Sulaiman Haines M.D. on 07/28/2016 at 18:04 MRI SHOULDER LEFT WITHOUT CONTRAST ([id number]) IMPRESSION: 1. Markedly limited study due to extensive motion artifact. 2. Small glenohumeral joint effusion, slightly increased in the axillary pouch compared to the prior study. Finding is nonspecific but given history of infection, septic arthritis cannot be excluded. 3. No definite evidence of osteomyelitis. 4. Extensive subcutaneous edema, increased from the prior study, as well as edema tracking between the visualized periarticular musculature suggestive of myositis. This includes prominent edema tracking deep to the deltoid muscle along the lateral aspect of the humeral head as well as along the superficial aspect of the deltoid. 5. No definite abscess identified given limitations of the study. Dictated by: Sulaiman Haines M.D. on 07/22/2016 at 8:36 Approved by: Sulaiman Haines M.D. on 07/22/2016 at 8:36 Cardiac Echo Impressions Echocardiogram Report Interpretation Summary The left ventricle is normal in size, wall thickness, and systolic function without any focal wall motion abnormalities. The ejection fraction is estimated to be 55-60%. There is trace mitral regurgitation. No aortic regurgitation is present. Vegetation is once again noted on the tricuspid valve. (1.1 x 1.6 cm) The right ventricular systolic pressure is estimated at 48 mmHg assuming a right atrial pressure of 8 mm Hg. Electronically signed by: Kulwant Urena on Reading Physician:07/29/2016 12:37 PM Assessment & Plan Darlene Miller is a 25-year-old female with past medical history significant for IV heroin and methamphetamine abuse who presented to the ED with shortness of breath and chest pain. Admitted for severe sepsis with pneumonia and urinary tract infection and subsequently found to have tricuspid valve endocarditis. Hospital day 15. 1. Severe sepsis, present on admission, active. - On admission temp 38.4, pulse 132, blood pressure 106/55, respiratory rate 24 , WBC 18.7, creatinine 2.11. - Fluid resuscitation and norepinephrine used initially. Currently hemodynamically stable. - Multiple blood cultures have come back MSSA. Her last set appears to be sterile. 2. 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 - Severe tricuspid regurgitation by echo. - Nafcillin 12,000 mg every 24 hours started 07/28/16. Tentative completion date of 08/31/16. - Repeat Echo on 07/29/16 continues to reveal vegetation measuring 1.1 x 1.6 cm. - Infectious disease following. Appreciate time and expertise. 3. Likely acute septic left sternoclavicular joint. likely present on admission. - MRI on 07/22/16 showed extensive subcutaneous edema but no definitive evidence of osteomyelitis. - Joint aspirated by ortho. - Cultures of joint aspirate no growth to date. - Antibiotics as above. - Orthopedic following. Appreciate time and expertise. 4. Acute back pain, present on admission, active. - MRI of spine unremarkable. - Pain management with scheduled oxycodone 15 mg every 4 hours. 5. 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 - BUN and creatinine on admission 36 and 2.11. - BUN and creatinine 16 and 1.12 on 07/31/16. - Nephrology following. Appreciate time and expertise. 6. Generalized anasarca and fluid overload, not present on admission, active. - Etiology secondary to fluid resuscitation and right heart failure. - Furosemide IV 40 mg every 8 hours. - Chlorthalidone 25 mg daily. - 2 g sodium dietary restriction. - Nephrology following. Appreciate time and expertise. 7. Hypertensive emergency, not present on admission, resolving. - CT head 07/31/16 revealed bilateral symmetric edema in the cerebral hemispheres but no midline shift or intracranial hemorrhage. - Nicardipine drip at 2.5 mls per hour. - Metoprolol 100 mg twice a day. - Nifedipine 60 mg daily. - Transferred to CCU for close monitoring. 8. Acute diarrhea, not present on admission, resolved. - C. difficile negative. 9. Substance abuse. Chronic. Present on admission. Active - History of IV heroin and methamphetamine use - Has been on Suboxone and methadone in the past. - Social work referral. - Dr. Sy discussed patient's case with Dr. Jensen (our ED physician who also prescribes and follows patient at clinic for Suboxone). Dr. Jensen graciously agrees to prescribe the patient Suboxone when she is ready for discharge and to follow her in her clinic provided that social work will setup the followup appointment and for Dr. Jensen to be contacted by the hospitalist team few days prior to patient's discharge. (Dr. Jensen's phone# is [phone] or he can be found in the ED). - If patient agrees to be off of narcotics for 24hours and try to tolerate her symptoms with Clonidine and Zofran for 24 hours will start her on Suboxone at 16mg/day at that point. 10. Anemia - No evidence of active bleeding - Negative hemolytic workup, she did get 2 units of packed red blood cells earlier during this hospital - Continue to monitor. 11. Urinary tract infection, present on admission, treated and resolved. 12. Pain management - Patient switched from oral Dilaudid to oxycodone 15 mg every 4 hours on . - Patient will be titrated down 10% of morphine equivalents daily. - Discussed plan with the pharmacist. - Avoid additional narcotics and IV pain medications. Dispo: She has been accepted to long-term care facility but her discharge is pending further workup and treatment by infectious disease, nephrology, and orthopedic surgery. GI Prophylaxis: Not indicated VTE Prophylaxis: Sub-Q Heparin (Unfractionated) VTE Mechanical Devices: Intermittant Pneumatic CD Resuscitation Status: CPR: Attempt Resuscitation Attending Statement The patient was seen and examined together with Dr. Palacios on 07/31/2016 and I agree with the history, exam and plan as outlined in the note above. . MATTHEW PALACIOS DO Jul 31, 2016 15:41 Justen Haney MD Aug 01, 2016 08:09
[2016-07-31] MEDS: Ondansetron 2 mg/mL 2 mL Inj IVPUSH PRN (15:50)
--- NOTE | 2016-07-31 18:21 | NUR ---
BP/Pain/anxiety Pt's BP continued to be elevated throughout shift. Able to titrate nicardipine down to 2.5mg/hour for awhile after PO metoprolol, but BP started increasing again. Notified MD. Gave 40mg of lasix along with PO BP meds, which did not affect hypertension at all. Notified MD again and started nicardipine gtt at 2.5. MD did not want to titrate up at that point, wanted to try to control BP with PO meds. Later in afternoon, gave 100mg metoprolol XL with no effect. Notified MD, ok'd to titrate nicardipine gtt up to 5mg again. BP then decreased to 140s/90s. TELE ST one-teens to one-twenties. Pt very anxious and worried about headache and hypertension. Consistently gave ativan 1mg as well as PRN pain meds as scheduled. Frequent rounding continues. Pt up standby assist to [facility] with steady gait.
--- NOTE | 2016-07-31 22:25 | NUR ---
P) Pt. up frequently to void, increasing BP and pain. I) Neff catheter placed. E) Urine draining well. Addendum: 07/31/16 at 2228 by DOI CAMPUZANO RN Pt. receiving 40mg lasix q8h per 's orders due to edema and fluid retention.
[2016-08-01] VITALS: BP 128/82; PULSE 115; RESP 25; O2SAT 99
[2016-08-01] MEDS: Heparin 5,000 Unit/mL Inj SUBQ SCH ×3 (00:37→16:30)
[2016-08-01] MEDS: MeTOProlol XL 50 mg ER24 Tablet PO SCH ×3 (00:37→20:35)
[2016-08-01] MEDS: Ondansetron 2 mg/mL 2 mL Inj IVPUSH PRN (03:56)
[2016-08-01] MEDS: Furosemide 10 mg/mL 4 mL Inj IVPUSH SCH ×3 (03:56→18:00)
[2016-08-01 04:00] VITALS: BP 140/101; PULSE 113; PULSE 123; RESP 29; O2SAT 96
[2016-08-01] MEDS: Sodium Chloride LOK Flush 10 mL Syringe IVFLUSH PRN ×2 (05:28→09:46)
[2016-08-01 06:16] LABS: BASOPHILS % (AUTO) 0.6 % (0-3); EOSINOPHILS % (AUTO) 1.4 % (0-5); MONOCYTES % (AUTO) 6.1 % (4-12); Mean Corpuscular Hemoglobin 27.5 pg (27.0-35.0); NEUTROPHILS % (AUTO) 60.4 % (40-74); Platelet Count 701 bil/L (150-400)
--- NOTE | 2016-08-01 06:20 | NUR ---
P) Pain/Cardiac/respiratory/fever Pt. c/o headache pain 10/10 whenever awake, states oxycodone does not help but wants it and ativan anyway, also c/o nausea x1 and wanted meds for that. Eating chocolates in between. Pt. also had low grade temp again tonight,T-max 37.9 when bundled, c/o being cold. I was able to put nicardipine on standby for a few hours when she was asleep but her pressures go up as soon as she wakes. Lung CTA but decreased in bases, moist sounding cough, tachypnic with a respiratory rate of 25 even when asleep, 30 when awake, SPO2 95-100% on room air. I) Meds per 's orders, cont. to monitor. E) Currently resting quietly with eyes clsed.
[2016-08-01] MEDS: Potassium Chloride 20 mEq SR Tablet PO SCH (09:04)
[2016-08-01] MEDS: NIFEdipine 30 mg ER24 Tablet PO SCH (09:06)
[2016-08-01] MEDS: lamoTRIgine 100 mg Tablet PO SCH ×2 (09:08→20:35)
[2016-08-01] MEDS: hydrOXYzine Pamoate 25 mg Capsule PO SCH ×2 (09:08→12:00)
[2016-08-01] MEDS: NAFCILLIN IV SCH (10:00)
[2016-08-01] MEDS: DEXTROSE 5% IV SCH (10:00)
--- NOTE | 2016-08-01 13:20 | PCM.PNMED ---
Subjective Date of Service Aug 01, 2016 Subjective BP better controlled, diastolic remains elevated. (+) WILLS, tachycardic. LE swelling improved. Exam Vital Signs Vital Sign - Last Date Time Temp Pulse Resp B/P Pulse Ox O2 Delivery O2 Flow Rate FiO2 08/01/16 04:00 113 08/01/16 04:00 37.8 29 140/101 96 Room Air 07/30/16 14:56 07/30/16 05:10 2.00 Intake and Output 07/31/16 07/31/16 08/01/16 Cumulative From/Thru 15:00 23:00 07:00 07/15/16 18:29 - 08/01/16 06:16 Intake Total 1520 ml 1305 ml 48160 ml Output Total 4000 ml 5750 ml 54175 ml Balance -2480 ml -4445 ml 21534 ml Intake Oral 800 ml 600 ml 77216 ml IV Total 720 ml 705 ml 45127 ml Packed Cells 965 ml Output Urine Total 4000 ml 5750 ml 35325 ml # Voids 15 # Bowel Movements 2 7 Exam General appearance: Awake, alert, oriented x3. In no acute distress. HEENT: Mild pallor. No jaundice. No JVD. No lymphadenopathy. No thyroid enlargement. Heart: Regular rhythm. Normal S1, S2. rubs, or gallops. Abdomen: Soft, active bowel sounds. No hepatosplenomegaly. Extremity: 1+ edema on the lower extremity. Musculoskeletal: Positive for left shoulder tenderness and left sternoclavicular joint tenderness. Lab and Diagnostics Result Diagram: 08/01/16 0600 08/01/16 0600 X-Rays, CTs and MRIs CT BRAIN WITHOUT CONTRAST ([id number]) IMPRESSION: 1. Bilateral symmetric edema in the cerebellar hemispheres. Given patient's history of headache and hypertension, findings are compatible with hypertensive encephalopathy. The differential for the imaging appearance is bilateral cerebellar infarcts which are less likely given clinical history. 2. No intracranial hemorrhage, midline shift, or hydrocephalus. The findings were reported to the patient's nurse on 07/31/16 at 1:10 AM by [facility] radiology services. Dictated by: Sulaiman Haines M.D. on 07/31/2016 at 8:32 Approved by: Sulaiman Haines M.D. on 07/31/2016 at 8:32 X-RAY CHEST, TWO VIEWS ([id number]) IMPRESSION: Subpulmonic pleural effusions bilaterally right, and there also appears to be left greater than right pneumonia in each lung base. The appearance has worsened sequentially from 07/16/16 through 07/24/16 2 the current study. Dictated by: Jaya Carranza M.D. on 07/29/2016 at 13:05 Approved by: Jaya Carranza M.D. on 07/29/2016 at 13:05 MRI CERVICAL SPINE WITH AND WITHOUT CONTRAST ([id number]) IMPRESSION: 1. No evidence of discitis-osteomyelitis in the cervical spine. 2. No high-grade spinal canal or neuroforaminal narrowing. Dictated by: Sulaiman Haines M.D. on 07/28/2016 at 18:10 Approved by: Sulaiman Haines M.D. on 07/28/2016 at 18:10 MRI LUMBAR SPINE WITH AND WITHOUT CONTRAST ([id number]) IMPRESSION: 1. No evidence of discitis-osteomyelitis in the lumbar spine. 2. No spinal canal or neuroforaminal narrowing. Dictated by: Sulaiman Haines M.D. on 07/28/2016 at 18:38 Approved by: Sulaiman Haines M.D. on 07/28/2016 at 18:38 MRI THORACIC SPINE WITH AND WITHOUT CONTRAST ([id number]) IMPRESSION: 1. No evidence of osteomyelitis or discitis in the thoracic spine. 2. Moderate-sized bilateral pleural effusions. Dictated by: Sulaiman Haines M.D. on 07/28/2016 at 18:04 Approved by: Sulaiman Haines M.D. on 07/28/2016 at 18:04 MRI SHOULDER LEFT WITHOUT CONTRAST ([id number]) IMPRESSION: 1. Markedly limited study due to extensive motion artifact. 2. Small glenohumeral joint effusion, slightly increased in the axillary pouch compared to the prior study. Finding is nonspecific but given history of infection, septic arthritis cannot be excluded. 3. No definite evidence of osteomyelitis. 4. Extensive subcutaneous edema, increased from the prior study, as well as edema tracking between the visualized periarticular musculature suggestive of myositis. This includes prominent edema tracking deep to the deltoid muscle along the lateral aspect of the humeral head as well as along the superficial aspect of the deltoid. 5. No definite abscess identified given limitations of the study. Dictated by: Sulaiman Haines M.D. on 07/22/2016 at 8:36 Approved by: Sulaiman Haines M.D. on 07/22/2016 at 8:36 Cardiac Echo Impressions Echocardiogram Report Interpretation Summary The left ventricle is normal in size, wall thickness, and systolic function without any focal wall motion abnormalities. The ejection fraction is estimated to be 55-60%. There is trace mitral regurgitation. No aortic regurgitation is present. Vegetation is once again noted on the tricuspid valve. (1.1 x 1.6 cm) The right ventricular systolic pressure is estimated at 48 mmHg assuming a right atrial pressure of 8 mm Hg. Electronically signed by: Kulwant Urena on Reading Physician:07/29/2016 12:37 PM Assessment & Plan 1. 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 Fluid overload, suspected right-sided heart failure. 3. Hypertensive emergency with encephalopathy. 4. 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 Subnephrotic-range proteinuria and hematuria r/o immune complex glomerulonephritis 6. Left shoulder pain status post MRI showed no osteomyelitis. 7. Suspected osteomyelitis of the left sternoclavicular joint. MRI: Abnormal left sternoclavicular joint. There is fluid within the joint. There is enhancing edema around the joint. There is slight increased signal within the head of the clavicle adjacent to the joint. To evaluate for infection suggest needle aspiration of the joint. 8. Polysubstance abuse. 9. Anemia of chronic disease. PLAN: 1. IV lasix 40 mg q 12 hr for another day. 2. continue chlorthalidone and metoprolol 100 mg BID. 3. d/c nifedipine given tachycardia, will add losartan 50 mg daily. 4. 2g Na diet. GI Prophylaxis: Not indicated VTE Prophylaxis: Sub-Q Heparin (Unfractionated) VTE Mechanical Devices: Intermittant Pneumatic CD Resuscitation Status: CPR: Attempt Resuscitation Adal Garcia MD Aug 01, 2016 13:20
[2016-08-01 16:11] VITALS: PULSE 119
--- NOTE | 2016-08-01 16:29 | PCM.PNMED ---
Subjective Date of Service Aug 01, 2016 Subjective Darlene Miller is a 25-year-old female with past medical history significant for IV heroin and methamphetamine abuse who presented to the ED with shortness of breath and chest pain. 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 Hospital day 16. Overnight: Patient complained of headache last night. Nicardipine drip was placed on hold while patient was asleep overnight, but her blood pressure marcelino when she was awake. Today: This morning her headache was nearly gone except at the base of her neck. She was very concerned about her pain medication taper not controlling her pain but she also expressed that she wanted to be discharged and start Suboxone so she understand that she needs to be off narcotics to start that. She also expressed desire to return to [facility] to her old room if possible. ROS is negative otherwise except as noted above. Exam Vital Signs Vital Sign - Last Date Time Temp Pulse Resp B/P Pulse Ox O2 Delivery O2 Flow Rate FiO2 08/01/16 04:00 113 08/01/16 04:00 37.8 29 140/101 96 Room Air 07/30/16 14:56 07/30/16 05:10 2.00 Intake and Output 07/31/16 07/31/16 08/01/16 Cumulative From/Thru 15:00 23:00 07:00 07/15/16 18:29 - 08/01/16 06:16 Intake Total 1520 ml 1305 ml 42772 ml Output Total 4000 ml 5750 ml 18241 ml Balance -2480 ml -4445 ml 43011 ml Intake Oral 800 ml 600 ml 92908 ml IV Total 720 ml 705 ml 71713 ml Packed Cells 965 ml Output Urine Total 4000 ml 5750 ml 13068 ml # Voids 15 # Bowel Movements 2 7 Exam General: Chronically ill-appearing young woman, in no acute distress. HEENT: Normocephalic, atraumatic. External ears without defect. Pupils equal, round, and reactive to light and accommodation. Neck: Supple with full range of motion. Cardiovascular: Tachycardic with regular rhythm with no murmurs, rubs, or gallops appreciated. Pulmonary: Lungs with coarseness at bilateral bases. Normal respiratory effort with no use of accessory muscles. Abdomen: Bowel tones present. Soft, nontender, nondistended. No hepatosplenomegaly or masses appreciated. Extremities: Left sternoclavicular joint swollen and tender with no erythema. 2 + lower extremity edema bilaterally. Neurological: Cranial nerves grossly intact. Normal muscle strength, tone, and bulk. Reflexes, coordination, and sensory function within normal limits. No known gait impairment. Psychiatric: Anxious, alert, oriented. IVs and Medications Medications Reviewed: Medications were reviewed in detail Lab and Diagnostics Result Diagram: 08/01/16 0600 08/01/16 0600 X-Rays, CTs and MRIs CT BRAIN WITHOUT CONTRAST ([id number]) IMPRESSION: 1. Bilateral symmetric edema in the cerebellar hemispheres. Given patient's history of headache and hypertension, findings are compatible with hypertensive encephalopathy. The differential for the imaging appearance is bilateral cerebellar infarcts which are less likely given clinical history. 2. No intracranial hemorrhage, midline shift, or hydrocephalus. The findings were reported to the patient's nurse on 07/31/16 at 1:10 AM by [facility] radiology services. Dictated by: Sulaiman Haines M.D. on 07/31/2016 at 8:32 Approved by: Sulaiman Haines M.D. on 07/31/2016 at 8:32 X-RAY CHEST, TWO VIEWS ([id number]) IMPRESSION: Subpulmonic pleural effusions bilaterally right, and there also appears to be left greater than right pneumonia in each lung base. The appearance has worsened sequentially from 07/16/16 through 07/24/16 2 the current study. Dictated by: Jaya Carranza M.D. on 07/29/2016 at 13:05 Approved by: Jaya Carranza M.D. on 07/29/2016 at 13:05 MRI CERVICAL SPINE WITH AND WITHOUT CONTRAST ([id number]) IMPRESSION: 1. No evidence of discitis-osteomyelitis in the cervical spine. 2. No high-grade spinal canal or neuroforaminal narrowing. Dictated by: Sulaiman Haines M.D. on 07/28/2016 at 18:10 Approved by: Sulaiman Haines M.D. on 07/28/2016 at 18:10 MRI LUMBAR SPINE WITH AND WITHOUT CONTRAST ([id number]) IMPRESSION: 1. No evidence of discitis-osteomyelitis in the lumbar spine. 2. No spinal canal or neuroforaminal narrowing. Dictated by: Sulaiman Haines M.D. on 07/28/2016 at 18:38 Approved by: Sulaiman Haines M.D. on 07/28/2016 at 18:38 MRI THORACIC SPINE WITH AND WITHOUT CONTRAST ([id number]) IMPRESSION: 1. No evidence of osteomyelitis or discitis in the thoracic spine. 2. Moderate-sized bilateral pleural effusions. Dictated by: Sulaiman Haines M.D. on 07/28/2016 at 18:04 Approved by: Sulaiman Haines M.D. on 07/28/2016 at 18:04 MRI SHOULDER LEFT WITHOUT CONTRAST ([id number]) IMPRESSION: 1. Markedly limited study due to extensive motion artifact. 2. Small glenohumeral joint effusion, slightly increased in the axillary pouch compared to the prior study. Finding is nonspecific but given history of infection, septic arthritis cannot be excluded. 3. No definite evidence of osteomyelitis. 4. Extensive subcutaneous edema, increased from the prior study, as well as edema tracking between the visualized periarticular musculature suggestive of myositis. This includes prominent edema tracking deep to the deltoid muscle along the lateral aspect of the humeral head as well as along the superficial aspect of the deltoid. 5. No definite abscess identified given limitations of the study. Dictated by: Sulaiman Haines M.D. on 07/22/2016 at 8:36 Approved by: Sulaiman Haines M.D. on 07/22/2016 at 8:36 Cardiac Echo Impressions Interpretation Summary The left ventricle is normal in size, wall thickness, and systolic function without any focal wall motion abnormalities. The ejection fraction is estimated to be 55-60%. There is trace mitral regurgitation. No aortic regurgitation is present. Vegetation is once again noted on the tricuspid valve. (1.1 x 1.6 cm) The right ventricular systolic pressure is estimated at 48 mmHg assuming a right atrial pressure of 8 mm Hg. Electronically signed by: Kulwant Urena on Reading Physician:07/29/2016 12:37 PM Assessment & Plan Darlene Miller is a 25-year-old female with past medical history significant for IV heroin and methamphetamine abuse who presented to the ED with shortness of breath and chest pain. 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 Hospital day 16. 1. Severe sepsis, present on admission, active. - On admission temp 38.4, pulse 132, blood pressure 106/55, respiratory rate 24 , WBC 18.7, creatinine 2.11. - Fluid resuscitation and norepinephrine used initially. Currently hemodynamically stable. - Multiple blood cultures have come back MSSA. Her last set appears to be sterile. 2. 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 - Severe tricuspid regurgitation by echo. - Nafcillin 12,000 mg every 24 hours started 07/28/16. Tentative completion date of 08/31/16. - Repeat Echo on 07/29/16 continues to reveal vegetation measuring 1.1 x 1.6 cm. - Infectious disease following. Appreciate time and expertise. 3. Likely acute septic left sternoclavicular joint, likely present on admission , active - MRI on 07/22/16 showed extensive subcutaneous edema but no definitive evidence of osteomyelitis. - Joint aspirated by ortho. - Cultures of joint aspirate no growth to date. - Antibiotics as above. - Orthopedic following. Appreciate time and expertise. 4. 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 - BUN and creatinine on admission 36 and 2.11. - BUN and creatinine stabilizing. - Nephrology following. Appreciate time and expertise. 5. Generalized anasarca and fluid overload, not present on admission, active. - Etiology secondary to fluid resuscitation and right heart failure. - IV lasix 40 mg q 12 hr for another day. - Chlorthalidone 25 mg daily. - 2 g sodium dietary restriction. - Nephrology following. Appreciate time and expertise. 6. Acute back pain, present on admission, active. - MRI of spine unremarkable. - Pain management with scheduled oxycodone 12.5 mg every 4 hours with 10% reduction everyday. 7. Hypertensive emergency, not present on admission, resolved - CT head 07/31/16 revealed bilateral symmetric edema in the cerebral hemispheres but no midline shift or intracranial hemorrhage. - Nicardipine drip stopped. - Metoprolol 100 mg twice a day. - Nifedipine 60 mg daily changed for losartan 50 mg daily due to tachycardia - Continue chlorthalidone and metoprolol 100 mg BID. - IV labetalol PRN SBP>180 or DBP>110. 8. Substance abuse, chronic, present on admission, active - History of IV heroin and methamphetamine use - Has been on Suboxone and methadone in the past. - Social work referral. - Dr. Sy discussed patient's case with Dr. Jensen (our ED physician who also prescribes and follows patient at clinic for Suboxone). Dr. Jensen graciously agrees to prescribe the patient Suboxone when she is ready for discharge and to follow her in her clinic provided that social work will setup the followup appointment and for Dr. Jensen to be contacted by the hospitalist team few days prior to patient's discharge. (Dr. Jensen's phone# is [phone] or he can be found in the ED). - If patient agrees to be off of narcotics for 24hours and try to tolerate her symptoms with Clonidine and Zofran for 24 hours will start her on Suboxone at 16mg/day at that point. 9. Anemia, normocytic normochromic, chronicity unknown. Present on admission. Active. - No evidence of active bleeding - Negative hemolytic workup, she did get 2 units of packed red blood cells earlier during this hospital - Continue to monitor. 10. Pain management - Patient switched from oral Dilaudid to oxycodone 15 mg every 4 hours on . - Patient will be titrated down 10% of morphine equivalents daily. - Discussed plan with the pharmacist. - Avoid additional narcotics and IV pain medications. 11. Urinary tract infection, present on admission, treated and resolved. 12. Acute diarrhea, not present on admission, resolved. - C. difficile negative Disposition: She has been accepted to long-term care facility but her discharge is pending further workup and treatment by infectious disease, nephrology, and orthopedic surgery. Will transfer from [facility]U back to [facility] today. GI Prophylaxis: Not indicated VTE Prophylaxis: Sub-Q Heparin (Unfractionated) VTE Mechanical Devices: Intermittant Pneumatic CD Resuscitation Status: CPR: Attempt Resuscitation Attending Statement The patient was seen and examined together with Dr. Way on 08/01/2016 and I agree with the history, exam and plan as outlined in the note above. . Tara Way DO Aug 01, 2016 16:29 Justen Haney MD Aug 01, 2016 18:04
[2016-08-01] MEDS: Labetalol 5 mg/mL 4 mL Inj IVPUSH PRN ×2 (16:45→18:33)
--- NOTE | 2016-08-01 17:20 | NUR ---
Transferred to [facility] rm 1008, accompanied by RN,PATIENT ACCESS,Security staffing rn-to-RN bedside & verbal report completed/all meds, chart, belongings transferred to new location. Locked belongings transferred by Security & re-locked into closet rm 1008, as per protocol. Pt continues to improve; Nicard gtt stopped @ 1200 today, with po Nicard, Metop, Labatelol given as ordered. Headache is down to manageable 11/24, states pt. (from severe of 04/26 at 0200 07/31/16 when pt was moved back to [facility]U from [facility]) Neff Cath to d/c tomorrow once q8hr of Lasix dc'd, according to Renal MD. Nafcillin gtt continuous into Rt UA 3L Picc. Tele STach 110-130, depending on activity. Pt tolerated shower, up in room when RN available, up in chair & eating fairly well. A7Ox3, denies visual problems, steady on feet. Pain med regime as per ordered. See Chart, EMR for specifics. Plan: safety priority; continue to monitor closely.
--- NOTE | 2016-08-01 17:33 | NUR ---
Transfer to 1008 Pt transferred from CCU to [facility] at 1730. Bedside report taken from SHAMA Collazo. Pt independent with transfer to chair; belongings locked in cabinet by security. Neff patent and draining to gravity. Pt SALAZAR with transfer. Clear guidelines outlined on pain medications and hypertension. Pt pleasant and cooperative hoping for visitors this evening. Will continue to monitor closely.
[2016-08-01] MEDS: NiCARdipine 25 mg/250 mL D5W IV SCH ×2 (18:32)
[2016-08-01] MEDS: LORazepam 1 mg Tablet PO PRN (18:38)
[2016-08-01 19:55] VITALS: BP 137/92; PULSE 120; RESP 22; O2SAT 98
[2016-08-01 23:59] VITALS: BP 142/96; PULSE 109; RESP 20; O2SAT 96
[2016-08-02] VITALS (9 sets, daily range): BP systolic 137–147; BP diastolic 92–107; PULSE 105–123; RESP 15–20; O2SAT 96–100
[2016-08-02] MEDS: Heparin 5,000 Unit/mL Inj SUBQ SCH ×3 (00:04→16:29)
[2016-08-02] MEDS: LORazepam 1 mg Tablet PO PRN ×5 (04:02→21:18)
--- NOTE | 2016-08-02 05:53 | NUR ---
Pain pt rates pain in L shoulder at 8-10/10 when asked. Explained to pt pain medication regimen. Pt able to sleep most of night, compliant with care.
[2016-08-02] MEDS: Furosemide 10 mg/mL 4 mL Inj IVPUSH SCH ×2 (06:09→17:20)
[2016-08-02] MEDS: Potassium Chloride 20 mEq SR Tablet PO SCH (08:02)
[2016-08-02] MEDS: hydrOXYzine Pamoate 25 mg Capsule PO SCH ×2 (08:02→12:29)
[2016-08-02] MEDS: lamoTRIgine 100 mg Tablet PO SCH ×2 (08:03→21:17)
[2016-08-02] MEDS: MeTOProlol XL 50 mg ER24 Tablet PO SCH ×2 (08:04→21:19)
--- NOTE | 2016-08-02 09:19 | PROG NOTE ---
[address] [address] PROGRESS NOTE PATIENT: RAJANI ALSTON : 1990 MR#: [id number] ADMIT: 07/15/2016 JOB ID: [id number] DATE: 08/02/2016 REASON FOR FOLLOWUP: Complications of MSSA tricuspid valve endocarditis due to IV drug use. INTERVAL HISTORY: The patient has had any eventful weekend. She was moved to the ICU because of progressive headache. This was in association with extraordinarily elevated blood pressures and worsening peripheral edema. A CT scan confirmed that she had hypertensive encephalopathy, and the patient was vigorously diuresed and had her blood pressure aggressively lowered. Eventually she was able to return back to the 1st floor with dramatic reduction in her peripheral edema, which she is very happy about, as well as resolution of her headache and improvement in her blood pressure. Today, she reports no fevers, no chills, no headache and improved breathing. She is ecstatic that she can now wear some of her "skinny jeans" as she diuresed off many liters of fluid during her ICU stay. PHYSICAL EXAMINATION: Reveals a woman who is febrile to 37.8 degrees, pulse 107, respiratory rate 20, blood pressure 147/92. She is saturating 95% on room air. The patient is awake, lucid, and appears much better than she did on Tuesday when I last saw her. Eyes without conjunctival abnormalities. Oral cavity benign. Lungs fairly clear to auscultation posteriorly. Cardiac exam still without significant murmur. The massive peripheral edema she had in the lower extremities extending all the way up to the abdomen is about 90% better over the weekend which is quite extraordinary. She now has a Neff catheter unfortunately to measure her urine output, and she is producing huge amounts of urine. LABORATORY STUDIES: White count which yesterday was 13,000 up from baseline 8000 or 9000 where it has been for several days, that dip however was completely normal. Her creatinine was stable yesterday at 1.12 and has not been repeated yet today. Over the weekend a BNP was done which was 13,000 up from 2000 a couple weeks ago which was our last measurement. LFTs remain normal. Hep B antigen negative. Micro studies include negative aspirate from the left sternoclavicular joint which was performed back on the . IMAGING: Over the weekend included the brain CT which showed bilateral symmetrical edema in the cerebral hemispheres consistent with hypertensive encephalopathy. IMPRESSION: 1. This remains an extraordinarily complicated case of a young woman with methicillin sensitive Staphylococcus aureus tricuspid valve endocarditis. 2. Multiple septic emboli in the lungs. 3. Infected left shoulder, probable septic left sternoclavicular joint. 4. Hypertensive right-sided heart failure. 5. 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 Many of these problems seem to be slowly improving today, though I am a bit worried about the bump in white count yesterday as well as what is clearly worsening right-sided heart failure. The Nephrology Team did a fine job on her over the weekend, though in getting her right heart failure and fluid overload under control and with the reduction in her blood pressure and resolution of her hypertensive headache. This very sick woman is by no means, out of the soto though as we are about half-way through the treatment of her methicillin sensitive Staphylococcus aureus endocarditis, and she still has many ongoing issues as described above. RECOMMENDATIONS: 1. Will continue with the IV nafcillin by continuous infusion through mid-August. The patient will need to stay here in the hospital for the entirety of her therapy. 2. Will need repeat CBC with differential, as well as complete metabolic panel today or tomorrow. 3. I would get a noncontrast CT of the chest again this week to better define how we are doing as her recent chest x-ray done late last week actually looked worse than prior chest x-rays with increasing infiltrates, and I think we need a better way to quantitate that. 4. ID will continue to follow this extremely complex case with you.
--- NOTE | 2016-08-02 11:42 | NUR ---
NUTRITION FOLLOW-UP: ASSESS: 25 YO female admitted with shortness of breath, chest pain, PRISCILA, pneumonia, and UTI. Found to have endocarditis with septic pulmonary emboli requiring IV antibiotics. PO intake good at 50-100% most meals. Nephrology is involved for PRISCILA PMHx: Homelessness, IV heroin and meth use, seizure disorder, UTI's, pyelonephritis, smoking, gonorrhea. DIET: Soft. PO intake mostly 100%. + magic cup and cottage cheese w/fruit on all trays LABS: Reviewed. Cr 1.12, Glu 104 MEDICATIONS: Reviewed. Lasix GI: 2 BM (07/31). SKIN: Hemanth 23 ANTHROPOMETRICS: Current Wt: 78.0 kg, BMI: 31.5 kg/m2. Admit wt 60 kg (BMI: 24.2 kg/m2). Fluid overload with wt increase of 18 kg since admit, trending down at this time. ESTIMATED NEEDS: based of admit wt Calories: 1405-0251 kcal (25-30 kcal/kg BW) Protein: 72-90 g/day (1.2-1.5 g/kg BW) NUTRITION DIAGNOSIS: 1) Inadequate oral intake related to weakness and respiratory distress as evidence by PO refused-25% and pt reporting weakness and difficulty chewing dry/hard foods.--IMPROVED 2) Altered nutrition-related labs related to acute kidney injury, as evidenced by elevated BUN, creatinine.--IMPROVED INTERVENTION: 1) Continue current diet and snacks as ordered. MONITOR/EVALUATE: Diet, PO intake, wt, labs, GI/nutrition status. Follow per low nutrition risk guidelines.
--- NOTE | 2016-08-02 14:39 | PCM.PNMED ---
Subjective Date of Service Aug 02, 2016 Subjective Darlene Miller is a 25-year-old female with past medical history significant for IV heroin and methamphetamine abuse who presented to [facility] ED with shortness of breath and chest pain. 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 Hospital day #19. The patient is resting in bed side chair comfortably and in no acute distress. The patient reports that she feels better than the day before. Her edema has improved significantly. She denies headache, chest pain, palpitations, shortness of breath, abdominal pain, nausea, vomiting, fever, chills, dysuria, diarrhea or constipation. She is voiding without difficulty. . Exam Vital Signs Vital Sign - Last Date Time Temp Pulse Resp B/P Pulse Ox O2 Delivery O2 Flow Rate FiO2 08/02/16 11:20 110 08/02/16 04:10 37.4 20 147/92 96 Room Air 07/30/16 14:56 07/30/16 05:10 2.00 Intake and Output 08/01/16 08/01/16 08/02/16 Cumulative From/Thru 15:00 23:00 07:00 07/15/16 18:29 - 08/02/16 06:24 Intake Total 744 ml 27268 ml Output Total 2200 ml 86526 ml Balance -1456 ml 13481 ml Intake Oral 400 ml 83450 ml IV Total 344 ml 98817 ml Packed Cells 965 ml Output Urine Total 2200 ml 28069 ml # Voids 15 # Bowel Movements 0 7 Exam General: Chronically ill-appearing young woman, in no acute distress. HEENT: Normocephalic, atraumatic. External ears without defect. Pupils equal, round, and reactive to light and accommodation. Neck: Supple with full range of motion. Cardiovascular: Tachycardic with regular rhythm and no murmurs, rubs, or gallops appreciated. Pulmonary: Lungs with coarseness at bilateral bases. Normal respiratory effort with no use of accessory muscles. Abdomen: Soft, nontender, nondistended, bowel sounds present. No hepatosplenomegaly or masses appreciated. Extremities: Left sternoclavicular joint swollen and tender with no erythema. No clubbing, cyanosis, or edema. Neurological: Cranial nerves grossly intact. Genitourinary: Neff catheter in place. . IVs and Medications Medications Reviewed: Medications were reviewed in detail Lab and Diagnostics Result Diagram: 08/01/16 0600 08/01/16 0600 Microbiology Blood culture x7 positive for MSSA. Respiratory viral PCR negative. Strep pneumoniae and Legionella urine antigen negative. Influenza screen negative. C. difficile DNA amplification negative. Urine culture shows no growth to date. . X-Rays, CTs and MRIs CT BRAIN WITHOUT CONTRAST ([id number]) IMPRESSION: 1. Bilateral symmetric edema in the cerebellar hemispheres. Given patient's history of headache and hypertension, findings are compatible with hypertensive encephalopathy. The differential for the imaging appearance is bilateral cerebellar infarcts which are less likely given clinical history. 2. No intracranial hemorrhage, midline shift, or hydrocephalus. The findings were reported to the patient's nurse on 07/31/16 at 1:10 AM by [facility] radiology services. Dictated by: Sulaiman Haines M.D. on 07/31/2016 at 8:32 Approved by: Sulaiman Haines M.D. on 07/31/2016 at 8:32 X-RAY CHEST, TWO VIEWS ([id number]) IMPRESSION: Subpulmonic pleural effusions bilaterally right, and there also appears to be left greater than right pneumonia in each lung base. The appearance has worsened sequentially from 07/16/16 through 07/24/16 2 the current study. Dictated by: Jaya Carranza M.D. on 07/29/2016 at 13:05 Approved by: Jaya Carranza M.D. on 07/29/2016 at 13:05 MRI CERVICAL SPINE WITH AND WITHOUT CONTRAST ([id number]) IMPRESSION: 1. No evidence of discitis-osteomyelitis in the cervical spine. 2. No high-grade spinal canal or neuroforaminal narrowing. Dictated by: Sulaiman Haines M.D. on 07/28/2016 at 18:10 Approved by: Sulaiman Haines M.D. on 07/28/2016 at 18:10 MRI LUMBAR SPINE WITH AND WITHOUT CONTRAST ([id number]) IMPRESSION: 1. No evidence of discitis-osteomyelitis in the lumbar spine. 2. No spinal canal or neuroforaminal narrowing. Dictated by: Sulaiman Haines M.D. on 07/28/2016 at 18:38 Approved by: Sulaiman Haines M.D. on 07/28/2016 at 18:38 MRI THORACIC SPINE WITH AND WITHOUT CONTRAST ([id number]) IMPRESSION: 1. No evidence of osteomyelitis or discitis in the thoracic spine. 2. Moderate-sized bilateral pleural effusions. Dictated by: Sulaiman Haines M.D. on 07/28/2016 at 18:04 Approved by: Sulaiman Haines M.D. on 07/28/2016 at 18:04 MRI SHOULDER LEFT WITHOUT CONTRAST ([id number]) IMPRESSION: 1. Markedly limited study due to extensive motion artifact. 2. Small glenohumeral joint effusion, slightly increased in the axillary pouch compared to the prior study. Finding is nonspecific but given history of infection, septic arthritis cannot be excluded. 3. No definite evidence of osteomyelitis. 4. Extensive subcutaneous edema, increased from the prior study, as well as edema tracking between the visualized periarticular musculature suggestive of myositis. This includes prominent edema tracking deep to the deltoid muscle along the lateral aspect of the humeral head as well as along the superficial aspect of the deltoid. 5. No definite abscess identified given limitations of the study. Dictated by: Sulaiman Haines M.D. on 07/22/2016 at 8:36 Approved by: Sulaiman Haines M.D. on 07/22/2016 at 8:36 . Cardiac Echo Impressions Echocardiogram Interpretation Summary: The left ventricle is normal in size, wall thickness, and systolic function without any focal wall motion abnormalities. The ejection fraction is estimated to be 55-60%. There is trace mitral regurgitation. No aortic regurgitation is present. Vegetation is once again noted on the tricuspid valve. (1.1 x 1.6 cm) The right ventricular systolic pressure is estimated at 48 mmHg assuming a right atrial pressure of 8 mm Hg. Electronically signed by: Kulwant Urena on Reading Physician:07/29/2016 12:37 PM . Assessment & Plan Darlene Miller is a 25-year-old female with past medical history significant for IV heroin and methamphetamine abuse who presented to [facility] ED with shortness of breath and chest pain. 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 Hospital day #19. 1. 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 Fluid overload, suspected right-sided heart failure. 3. Hypertensive emergency with encephalopathy. 4. MSSA acute tricuspid valve endocarditis with septic pulmonary emboli. - Currently on the IV nafcillin infusion 12 g over 24 hours x 6 weeks. 5. Subnephrotic-range proteinuria and hematuria r/o immune complex glomerulonephritis. 6. Probable septic left sternoclavicular joint. 7. Hypertensive right-sided heart failure. 8. Polysubstance abuse. 9. Anemia of chronic disease. PLAN: 1. IV lasix 40 mg q 12 hr stop after second dose today. 2. Continue chlorthalidone and metoprolol 100 mg BID. 3. Continue losartan 50 mg daily. 4. 2g Na diet. 5. Ordered cryoglobulins and C3 and C4. 6. Renal biopsy in remote future once infection has resolved. . GI Prophylaxis: Not indicated VTE Prophylaxis: Sub-Q Heparin (Unfractionated) VTE Mechanical Devices: Intermittant Pneumatic CD Resuscitation Status: CPR: Attempt Resuscitation Attending Statement Nephrology attending: The patient was seen and examined along with the internal medicine resident please note I have reviewed. She has had some improvement in her renal indices however I am concerned about her baseline proteinuria. History I would begin concerned about a history of hepatitis C nephropathy versus an immune complex mediated glomerulonephritis. While the patient is actively infected renal biopsy is contraindicated however I do feel that we should pursue this once we get the okay from infectious disease. In the meantime I would like to get her cryoglobulin level, C4, C3, and a sedimentation rate. Heather Metz DO Aug 02, 2016 14:39 Abel Monge DO Aug 02, 2016 16:29 Abel Monge DO Aug 02, 2016 16:29
[2016-08-02] MEDS: DEXTROSE 5% IV SCH (15:36)
[2016-08-02] MEDS: NAFCILLIN IV SCH (15:36)
[2016-08-02] MEDS: Ondansetron 2 mg/mL 2 mL Inj IVPUSH PRN ×2 (16:29→22:34)
--- NOTE | 2016-08-02 19:32 | NUR ---
Pain/Activity/WT/Anxiety/MRI Patient a/o x 4, c/o shoulder and RLQ abd pain, scheduled pain meds given with min effect. Patient taking diet fair, BM today, denies constipation. Amb indep in halls multiple times, steady gait. Standing wt done per patient request and large wt difference noted. Patient requesting anxiety meds prior to scheduled MRI MD paged and new orders recieved, meds given and patient down to MRI. Per production maintenance technician patient unable to finish test r/t anxiety and pain. Noc RN aware.
--- NOTE | 2016-08-02 19:48 | DRSVH ---
PROCEDURE: MRI BRAIN WITHOUT CONTRAST ([id number]) INDICATIONS: Cerebral Edema/Possible PRESS TECHNIQUE: Noncontrast axial T1 spin echo, axial T2 fast spin echo, sagittal and axial FLAIR, coronal T2 fast sp in echo, axial gradient echo, axial diffusion and ADC through the brain. COMPARISON: [facility], MR, BRAIN W/O CONTRAST, 01/16/2014, 10:12. [facility] l, CT, CT BRAIN WO CON, 07/31/2016, 0:56. FINDINGS: Image quality: There is extensive motion artifact markedly limiting evaluation. CSF Spaces: Basal cisterns are patent. No extra-axial fluid collections. Ventricles are normal in size and shape. Brain: Diffusion weighted images demonstrate no acute infarcts. There are bilateral moderate size a reas of cortical and subcortical edema within the cerebellar hemispheres corresponding to the finding s on recent CT. In addition, there are scattered bilateral small cortical and subcortical regions of T2 hyperintensity involving the bilateral frontal and temporal lobes. There is a mild associated co rtical thickening. The findings are new compared to the prior MRI study. Evaluation for hemorrhage is limited due to extensive motion artifact on the susceptibility weighted images which are nondiagno stic. The brainstem appears within normal limits. Skull and face: Calvarium has normal marrow signal. Orbits appear normal. Sinuses: Sinuses and mastoids are clear. IMPRESSION: 1. Bilateral regions of relatively symmetric edema within the cerebellar hemispheres redemonstrated which are nonspecific but are compatible with posterior reversible encephalopathy as clinically queri ed. No restricted diffusion to suggest infarct. 2. Additional bilateral scattered supratentorial regions of cortical and subcortical edema are also nonspecific. The differential includes encephalitis, possible sequelae of septic emboli, or mass les ions. Recommend further evaluation with contrast-enhanced images when clinically feasible. Dictated by: Sulaiman Haines M.D. on 08/02/2016 at 19:46 Approved by: Sulaiman Haines M.D. on 08/02/2016 at 19:46
--- NOTE | 2016-08-02 19:51 | DRSVH ---
PROCEDURE: MRA ANGIOGRAM HEAD WITHOUT CONTRAST ([id number]) INDICATIONS: CEREBRAL EDEMA TECHNIQUE: Noncontrast axial 3-D [id number]-gt-mcrdet MR angiogram, with 3-dimensional maximum intensity projection (M IP) reformats of the internal carotid arteries and posterior circulation then performed. COMPARISON: [facility], MR, BRAIN W/O CONTRAST, 01/16/2014, 10:12. [facility] l, MR, MR BRAIN WO CON, 08/02/2016, 18:20. FINDINGS: Image quality: There is motion artifact limiting evaluation. Anterior circulation: Intracranial internal carotid arteries demonstrate normal size and intralumina l flow signal. The flow within the paired anterior cerebral arteries is patent bilaterally. The gael w within the middle cerebral arteries is patent bilaterally. The anterior communicating artery is se en. No high-grade stenoses, occlusions, or aneurysms. Posterior circulation: Visualized portions of the vertebral arteries are patent and join to form a p atent basilar artery. The flow within the posterior cerebral arteries is patent bilaterally. No hig h-grade stenoses, occlusions, or aneurysms. IMPRESSION: 1. No definite high-grade stenosis or occlusion of the central intracranial arteries. Dictated by: Sulaiman Haines M.D. on 08/02/2016 at 19:49 Approved by: Sulaiman Haines M.D. on 08/02/2016 at 19:49
--- NOTE | 2016-08-02 21:56 | PCM.PNMED ---
Subjective Date of Service Aug 02, 2016 Subjective Patient agreed to do an MRI of her brain with Valium prior to the test. She claims anxiety and neurosis and claustrophobia as reason she could not tolerate the test in the past. She completed portions of the test which was an MRI stroke protocol however when the portion of the test [place] on her neck she could not tolerate the exam any further patient has known other new complaints. Exam Vital Signs Vital Sign - Last Date Time Temp Pulse Resp B/P Pulse Ox O2 Delivery O2 Flow Rate FiO2 08/02/16 20:15 37.4 116 17 143/107 96 Room Air 07/30/16 14:56 07/30/16 05:10 2.00 Intake and Output 08/01/16 08/01/16 08/02/16 Cumulative From/Thru 15:00 23:00 07:00 07/15/16 18:29 - 08/02/16 06:24 Intake Total 744 ml 19318 ml Output Total 2200 ml 17124 ml Balance -1456 ml 47547 ml Intake Oral 400 ml 83518 ml IV Total 344 ml 05393 ml Packed Cells 965 ml Output Urine Total 2200 ml 59120 ml # Voids 15 # Bowel Movements 0 7 Exam General: Patient is slightly anxious. Otherwise does not appear to be in any pain or any other distress. HEENT: Head is atraumatic normocephalic. Eyes: Pupils are equally round and reactive to light and accommodation. Extraocular muscles are intact. Sclera are white anicteric. Subconjunctival mucosa is pink. Ears and nose are unremarkable. Oropharynx: There is no mucosal lesions, there is no thrush, there is no pharyngitis. Neck: Is supple, there are no nodes, or masses or tenderness. Chest: Is clear to auscultation and percussion. There are no rales, rhonchi, wheezes or rubs. Heart: Rate is tachycardic, rhythm is regular. There is no murmur, rub or gallop. Abdomen: Good bowel sounds are present. Abdomen is soft, nontender, no organomegaly or masses were appreciated. Extremities: Are symmetrical and well perfused. The left sternoclavicular joint is slightly swollen. There is decreased edema, there is no cellulitis, no rash noted. Neurologic: There are no focal neurological deficits. Cranial nerves II through XII are intact. There are no sensory or motor deficits. Psychiatric: Patients mood is calm and shows no sign of agitation. Genital: Deferred Rectal: Deferred Lab and Diagnostics Result Diagram: 08/01/16 0600 08/01/16 0600 Microbiology Blood culture x7 positive for MSSA. Respiratory viral PCR negative. Strep pneumoniae and Legionella urine antigen negative. Influenza screen negative. C. difficile DNA amplification negative. Urine culture shows no growth to date. . X-Rays, CTs and MRIs CT BRAIN WITHOUT CONTRAST ([id number]) IMPRESSION: 1. Bilateral symmetric edema in the cerebellar hemispheres. Given patient's history of headache and hypertension, findings are compatible with hypertensive encephalopathy. The differential for the imaging appearance is bilateral cerebellar infarcts which are less likely given clinical history. 2. No intracranial hemorrhage, midline shift, or hydrocephalus. The findings were reported to the patient's nurse on 07/31/16 at 1:10 AM by [facility] [place] radiology services. Dictated by: Sulaiman Haines M.D. on 07/31/2016 at 8:32 Approved by: Sulaiman Haines M.D. on 07/31/2016 at 8:32 X-RAY CHEST, TWO VIEWS ([id number]) IMPRESSION: Subpulmonic pleural effusions bilaterally right, and there also appears to be left greater than right pneumonia in each lung base. The appearance has worsened sequentially from 07/16/16 through 07/24/16 2 the current study. Dictated by: Jaya Carranza M.D. on 07/29/2016 at 13:05 Approved by: Jaya Carranza M.D. on 07/29/2016 at 13:05 MRI CERVICAL SPINE WITH AND WITHOUT CONTRAST ([id number]) IMPRESSION: 1. No evidence of discitis-osteomyelitis in the cervical spine. 2. No high-grade spinal canal or neuroforaminal narrowing. Dictated by: Sulaiman Haines M.D. on 07/28/2016 at 18:10 Approved by: Sulaiman Haines M.D. on 07/28/2016 at 18:10 MRI LUMBAR SPINE WITH AND WITHOUT CONTRAST ([id number]) IMPRESSION: 1. No evidence of discitis-osteomyelitis in the lumbar spine. 2. No spinal canal or neuroforaminal narrowing. Dictated by: Sulaiman Haines M.D. on 07/28/2016 at 18:38 Approved by: Sulaiman Haines M.D. on 07/28/2016 at 18:38 MRI THORACIC SPINE WITH AND WITHOUT CONTRAST ([id number]) IMPRESSION: 1. No evidence of osteomyelitis or discitis in the thoracic spine. 2. Moderate-sized bilateral pleural effusions. Dictated by: Sulaiman Haines M.D. on 07/28/2016 at 18:04 Approved by: Sulaiman Haines M.D. on 07/28/2016 at 18:04 MRI SHOULDER LEFT WITHOUT CONTRAST ([id number]) IMPRESSION: 1. Markedly limited study due to extensive motion artifact. 2. Small glenohumeral joint effusion, slightly increased in the axillary pouch compared to the prior study. Finding is nonspecific but given history of infection, septic arthritis cannot be excluded. 3. No definite evidence of osteomyelitis. 4. Extensive subcutaneous edema, increased from the prior study, as well as edema tracking between the visualized periarticular musculature suggestive of myositis. This includes prominent edema tracking deep to the deltoid muscle along the lateral aspect of the humeral head as well as along the superficial aspect of the deltoid. 5. No definite abscess identified given limitations of the study. Dictated by: Sulaiman Haines M.D. on 07/22/2016 at 8:36 Approved by: Sulaiman Haines M.D. on 07/22/2016 at 8:36 . Cardiac Echo Impressions Echocardiogram Interpretation Summary: The left ventricle is normal in size, wall thickness, and systolic function without any focal wall motion abnormalities. The ejection fraction is estimated to be 55-60%. There is trace mitral regurgitation. No aortic regurgitation is present. Vegetation is once again noted on the tricuspid valve. (1.1 x 1.6 cm) The right ventricular systolic pressure is estimated at 48 mmHg assuming a right atrial pressure of 8 mm Hg. Electronically signed by: Kulwant Urena on Reading Physician:07/29/2016 12:37 PM . Assessment & Plan Darlene Miller is a 25-year-old female with past medical history significant for IV heroin and methamphetamine abuse who presented to the ED with shortness of breath and chest pain. 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 Hospital day 16. 1. Severe sepsis, present on admission, active. - On admission temp 38.4, pulse 132, blood pressure 106/55, respiratory rate 24 , WBC 18.7, creatinine 2.11. - Fluid resuscitation and norepinephrine used initially. Currently hemodynamically stable. - Multiple blood cultures have come back MSSA. Her last set appears to be sterile. 2. 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 - Severe tricuspid regurgitation by echo. - Nafcillin 12,000 mg every 24 hours started 07/28/16. Tentative completion date of 08/31/16. - Repeat Echo on 07/29/16 continues to reveal vegetation measuring 1.1 x 1.6 cm. - Infectious disease following. Appreciate time and expertise. 3. Likely acute septic left sternoclavicular joint, likely present on admission , active - MRI on 07/22/16 showed extensive subcutaneous edema but no definitive evidence of osteomyelitis. - Joint aspirated by ortho. - Cultures of joint aspirate no growth to date. - Antibiotics as above. - Orthopedic following. Appreciate time and expertise -Observe closely as this may need surgical debridement 4. 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 - BUN and creatinine on admission 36 and 2.11. - BUN and creatinine stabilizing. Today creatinine is 1.12 - Nephrology following. Appreciate their time and expertise. 5. Generalized anasarca and fluid overload, not present on admission, active. - Etiology secondary to fluid resuscitation and right heart failure. - IV lasix 40 mg q 12 hr for another day. - Chlorthalidone 25 mg daily. - 2 g sodium dietary restriction. - Nephrology following. Appreciate time and expertise. 6. Acute back pain, present on admission, active. - MRI of spine unremarkable. - Pain management with scheduled oxycodone 12.5 mg every 4 hours with 10% reduction everyday. 7. Hypertensive emergency, not present on admission, resolved - CT head 07/31/16 revealed bilateral symmetric edema in the cerebral hemispheres but no midline shift or intracranial hemorrhage. - Nicardipine drip stopped. - Metoprolol 100 mg twice a day. - Nifedipine 60 mg daily changed for losartan 50 mg daily due to tachycardia - Continue chlorthalidone and metoprolol 100 mg BID. - IV labetalol PRN SBP>180 or DBP>110. - Due to cerebral edema seen on CAT scan I have consulted Dr. Amilcar Laird. I reviewed CT scan with him and he recommended an MRI stroke protocol. Patient completed part of the study but could not complete the rest despite receiving 10 mg of by mouth Valium along with oxycodone before the exam. 8. Substance abuse, chronic, present on admission, active - History of IV heroin and methamphetamine use - Has been on Suboxone and methadone in the past. - Social work referral. - Dr. Sy discussed patient's case with Dr. Jensen (our ED physician who also prescribes and follows patient at clinic for Suboxone). Dr. Jensen graciously agrees to prescribe the patient Suboxone when she is ready for discharge and to follow her in her clinic provided that social work will setup the followup appointment and for Dr. Jensen to be contacted by the hospitalist team few days prior to patient's discharge. (Dr. Jensen's phone# is [phone] or he can be found in the ED). - If patient agrees to be off of narcotics for 24hours and try to tolerate her symptoms with Clonidine and Zofran for 24 hours will start her on Suboxone at 16mg/day at that point. 9. Anemia, normocytic normochromic, chronicity unknown. Present on admission. Active. - No evidence of active bleeding - Negative hemolytic workup, she did get 2 units of packed red blood cells earlier during this hospital - Continue to monitor. 10. Pain management - Patient switched from oral Dilaudid to oxycodone 15 mg every 4 hours on . - Patient will be titrated down 10% of morphine equivalents daily. - Discussed plan with the pharmacist. - Avoid additional narcotics and IV pain medications. 11. Urinary tract infection, present on admission, treated and resolved. 12. Acute diarrhea, not present on admission, resolved. - C. difficile negative Disposition: She has been accepted to long-term care facility but her discharge is pending further workup and treatment by infectious disease, nephrology, and orthopedic surgery. Pain Evaluation: Adequate Pain Control GI Prophylaxis: Not indicated VTE Prophylaxis: Sub-Q Heparin (Unfractionated) VTE Mechanical Devices: Intermittant Pneumatic CD Resuscitation Status: CPR: Attempt Resuscitation Kwame Ruth MD Aug 02, 2016 21:55
[2016-08-03] VITALS (7 sets, daily range): BP systolic 124–136; BP diastolic 82–94; PULSE 100–117; RESP 16; O2SAT 94–98
[2016-08-03] MEDS: Heparin 5,000 Unit/mL Inj SUBQ SCH ×3 (01:43→16:59)
--- NOTE | 2016-08-03 03:42 | NUR ---
Patient anxious and irritable upon initial assessment. Patient reports she is frustrated because she feels the doctor did not discuss a oxycodone taper with her. She also thought she was going to be started on suboxone while in hospital. MD note reviewed with her regarding this issue and encouraged patient to discuss with the doctor tomorrow. Sleeping comfortably most of the night.
[2016-08-03] MEDS: Furosemide 10 mg/mL 4 mL Inj IVPUSH SCH (06:02)
[2016-08-03] MEDS: hydrOXYzine Pamoate 25 mg Capsule PO SCH ×2 (08:13→13:05)
[2016-08-03] MEDS: lamoTRIgine 100 mg Tablet PO SCH ×2 (08:13→20:18)
[2016-08-03] MEDS: MeTOProlol XL 50 mg ER24 Tablet PO SCH ×2 (08:13→20:18)
[2016-08-03 08:58] LABS: BASOPHILS % (AUTO) 0.7 % (0-3); EOSINOPHILS % (AUTO) 2.4 % (0-5); MONOCYTES % (AUTO) 7.1 % (4-12); Mean Corpuscular Hemoglobin 27.5 pg (27.0-35.0); Mean Corpuscular Volume 88.6 fL (81-100); NEUTROPHILS % (AUTO) 58.1 % (40-74); Platelet Count 664 bil/L (150-400)
--- NOTE | 2016-08-03 09:17 | PROG NOTE ---
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 INTERVAL HISTORY: Overnight, the patient underwent MRI scanning as directed by Dr. Ruth to further evaluate her presumptive hypertensive encephalopathy which had occurred over the weekend. The patient reports she "freaked out" during the MRI, and for that reason, had a sleepless night and this is her explanation for a low-grade fever, which occurred overnight. This morning she denies any headache, confusion, visual change, fevers, chills or sweats. She does report that her left sternoclavicular joint seems to be growing and is now reaching very impressive proportions. She also notes that she is having perhaps worse right pleuritic chest pain. No GI symptoms and no trouble breathing noted, however. PHYSICAL EXAMINATION: Reveals a woman who spiked to 38.2 late yesterday afternoon. This is her highest temperature in more than a week and really her first temperature in 10 days or so. Temperature now 37.7, pulse 100, respiratory rate 16, blood pressure 130/93. She is saturating well on room air and appears to be in no discomfort. She is awake, alert, perky and without any evident issue this morning. Eyes without conjunctival hemorrhage. Oral cavity negative. Lungs with crackles at the right base. I did not hear rub. Breath sounds tend to be diminished at both bases, however, as they have been throughout her hospital stay. Cardiac tones without murmur. Her left sternoclavicular joint is becoming more and more prominent and I am increasingly worried that there is a great deal of joint destruction going on there. Her abdomen without change. Extremities are much improved after her massive diuresis. We have no labs since the and I have taken the liberty of ordering some for this morning. Our last blood cultures are now 10 days old and, of course, those had turned negative. I also think we should repeat those. The culture from the sternoclavicular joint aspiration done by Orthopedics on the is negative. IMAGING: Over the past couple days includes the brain MRI scan which was done yesterday evening. It shows symmetrical edema within the cerebral hemispheres, consistent with posterior reversible encephalopathy. Also noted are bilateral scattered supratentorial lesions which are nonspecific. The radiologist offered a differential including encephalitis, sequela of septic emboli or early mass lesions. A head MRA showed no abnormalities of the intracranial arteries. IMPRESSION: This continues to be a very worrisome case. This young woman presented basically in septic shock with a very high-grade and prolonged MSSA bacteremia secondary to tricuspid valve endocarditis with septic emboli. She also appeared to have a left septic shoulder when admitted but this was never confirmed and her shoulder was actually improved to the point it is basically normal. Unfortunately as her hospital stay has progressed, and we are now on the , she has developed more and more pain and swelling around the left sternoclavicular joint. Orthopedics saw her and aspirated it and that culture has come back negative though many polys were seen on the Gram stain. I suspect her septic sternoclavicular joint is continuing to worsen despite high-dose ongoing nafcillin therapy. Another major concern here is her right pleuritic chest pain which seems to have come back and suggests to me there could be an evolving abscess or other process in her right lung. This may account for her recrudescent fever. A third problem here is her change in mental status and the finding on MRI scan of the abnormalities in the supratentorial regions. While this is likely due to her hypertensive crisis or some other problem, the possibility that she has left-sided endocarditis has never been excluded. Recall that when she was first admitted, the transthoracic echo showed only tricuspid lesion and the breaker machine tender thought they had a good view of the other valves. We subsequently got a follow up echo, transthoracic, which shows continued tricuspid valve vegetation without lesions on the mitral or aortic valve, but we have not had a JOÃO and I continue to have some lingering concern that she may also have left-sided endocarditis, which could account for these lesions seen in the brain. RECOMMENDATIONS: 1. I have ordered CBC and CMP today as we have no recent labs and her fevers have returned. 2. I have ordered a CT scan without contrast of the chest to better visualize the septic emboli and what is going on in her lungs. 3. I have ordered repeat blood cultures as she is now febrile again though only a low level fever. 4. I am increasingly concerned about her left sternoclavicular joint and wonder if she should be transferred to a place with CT surgery capabilities, not so much for replacement of her tricuspid valve but to debride and perhaps remove the head of the clavicle on the left. 5. A transesophageal echo may be warranted at some point.
--- NOTE | 2016-08-03 12:07 | DRSVH ---
PROCEDURE: CT CHEST WITHOUT CONTRAST ([id number]) INDICATIONS: F/U septic [id number] pain TECHNIQUE: Noncontrast 5 mm thick sections acquired from the pulmonary apices to the posterior costophrenic angl es. 7 mm thick coronal and sagittal MIP reformats were then acquired. For radiation dose reduction, the following was used: automated exposure control, adjustment of mA and/or kV according to patient size. COMPARISON: [facility], CT, CT CHEST WO CON, 07/17/2016, 14:03. FINDINGS: Image quality: Excellent. Lungs and pleura: Increased, small to moderate bilateral pleural effusions are present. There is incr eased, bibasilar airspace opacity. Previously seen cavitary bilateral lung nodules have decreased mod erately in size. Central and peripheral airways are patent and normal in caliber. Mediastinum: Heart size is normal. No pericardial effusion. No mediastinal adenopathy by size crit eria. Thoracic aorta and central pulmonary arteries are normal in size. Esophagus is normal in heike delphine. No hiatal hernia. Bones and chest wall: No suspicious bony lesions. No vertebral body compression fractures. No axil gissell or supraclavicular adenopathy by size criteria. Thyroid gland is within normal limits. Abdomen: Visualized upper abdominal solid organs and bowel loops appear normal in the absence of con trast. IMPRESSION: 1. Resolving septic emboli. 2. Increased bilateral pleural effusions and increased bibasilar pneumonia versus atelectasis. Dictated by: Antonieta Hayward M.D. on 08/03/2016 at 12:06 Approved by: Antonieta Hayward M.D. on 08/03/2016 at 12:06
[2016-08-03] MEDS: LORazepam 1 mg Tablet PO PRN ×2 (13:11→20:08)
[2016-08-03] MEDS: Ondansetron 2 mg/mL 2 mL Inj IVPUSH PRN ×2 (14:02→21:26)
--- NOTE | 2016-08-03 14:03 | PCM.PNMED ---
Subjective Date of Service Aug 03, 2016 Subjective Nephrology Progress Note: Attending Dr. Monge Darlene Miller is a 25-year-old female with past medical history significant for IV heroin and methamphetamine abuse who presented to [facility] ED with shortness of breath and chest pain. 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 Hospital day #20. Overnight: There were no acute events. Telemetry over night: Sinus tachycardia , heart rate 100 to 110s, without ectopy. The patient is resting in bed side chair comfortably and in no acute distress. The patient endorses difficulty taking a deep breath, right-sided rib cage pain and sternoclavicular abscess pain. She denies headache, chest pain, palpitations, shortness of breath, abdominal pain, nausea, vomiting, fever, chills, dysuria, diarrhea or constipation. She is voiding via Neff catheter without difficulty. . Exam Vital Signs Vital Sign - Last Date Time Temp Pulse Resp B/P Pulse Ox O2 Delivery O2 Flow Rate FiO2 08/03/16 05:26 36.9 100 16 130/93 94 Room Air 07/30/16 14:56 07/30/16 05:10 2.00 Intake and Output 08/02/16 08/02/16 08/03/16 Cumulative From/Thru 15:00 23:00 07:00 07/15/16 18:29 - 08/03/16 06:27 Intake Total 1089 ml 1729 ml 71030 ml Output Total 3100 ml 3200 ml 49415 ml Balance -2011 ml -1471 ml 64182 ml Intake Oral 800 ml 1436 ml 33876 ml IV Total 289 ml 293 ml 32805 ml Packed Cells 965 ml Output Urine Total 3100 ml 3200 ml 01563 ml # Voids 15 # Bowel Movements 0 7 Exam General: Chronically ill-appearing young woman, in no acute distress. HEENT: Normocephalic, atraumatic. External ears without defect. Pupils equal, round, and reactive to light and accommodation. Neck: Supple with full range of motion. Cardiovascular: Tachycardic with regular rhythm and no murmurs, rubs, or gallops appreciated. Pulmonary: Lungs with crackles at bilateral bases. Normal respiratory effort with no use of accessory muscles. Abdomen: Soft, nontender, nondistended, bowel sounds present. No hepatosplenomegaly or masses appreciated. Extremities: Left sternoclavicular joint increasingly swollen and tender to palpation with no erythema. No clubbing, cyanosis, or edema. Neurological: Cranial nerves grossly intact. Genitourinary: Neff catheter in place. . IVs and Medications Medications Reviewed: Medications were reviewed in detail Lab and Diagnostics Item Value Date Time Calcium Level 8.8 mg/dL 08/03/16 08 Total Bilirubin 0.2 mg/dL 08/03/16 0845 Aspartate Amino Transf (AST/SGOT) 10 U/L 08/03/16 08 Alanine Aminotransferase (ALT/SGPT) 5 U/L 08/03/16 0845 Alkaline Phosphatase 55 U/L 08/03/16 0845 Total Protein 8.0 g/dL 08/03/16 0845 Albumin 3.0 g/dL L 08/03/16 08 Result Diagram: 08/03/16 0845 08/03/16 08 Microbiology Blood culture x7 positive for MSSA. Respiratory viral PCR negative. Strep pneumoniae and Legionella urine antigen negative. Influenza screen negative. C. difficile DNA amplification negative. Urine culture shows no growth to date. . X-Rays, CTs and MRIs CT BRAIN WITHOUT CONTRAST ([id number]) IMPRESSION: 1. Bilateral symmetric edema in the cerebellar hemispheres. Given patient's history of headache and hypertension, findings are compatible with hypertensive encephalopathy. The differential for the imaging appearance is bilateral cerebellar infarcts which are less likely given clinical history. 2. No intracranial hemorrhage, midline shift, or hydrocephalus. The findings were reported to the patient's nurse on 07/31/16 at 1:10 AM by [facility]. Dictated by: Sulaiman Haines M.D. on 07/31/2016 at 8:32 Approved by: Sulaiman Haines M.D. on 07/31/2016 at 8:32 X-RAY CHEST, TWO VIEWS ([id number]) IMPRESSION: Subpulmonic pleural effusions bilaterally right, and there also appears to be left greater than right pneumonia in each lung base. The appearance has worsened sequentially from 07/16/16 through 07/24/16 2 the current study. Dictated by: Jaya Carranza M.D. on 07/29/2016 at 13:05 Approved by: Jaya Carranza M.D. on 07/29/2016 at 13:05 MRI CERVICAL SPINE WITH AND WITHOUT CONTRAST ([id number]) IMPRESSION: 1. No evidence of discitis-osteomyelitis in the cervical spine. 2. No high-grade spinal canal or neuroforaminal narrowing. Dictated by: Sulaiman Haines M.D. on 07/28/2016 at 18:10 Approved by: Sulaiman Haines M.D. on 07/28/2016 at 18:10 MRI LUMBAR SPINE WITH AND WITHOUT CONTRAST ([id number]) IMPRESSION: 1. No evidence of discitis-osteomyelitis in the lumbar spine. 2. No spinal canal or neuroforaminal narrowing. Dictated by: Sulaiman Hanies M.D. on 07/28/2016 at 18:38 Approved by: Sulaiman Haines M.D. on 07/28/2016 at 18:38 MRI THORACIC SPINE WITH AND WITHOUT CONTRAST ([id number]) IMPRESSION: 1. No evidence of osteomyelitis or discitis in the thoracic spine. 2. Moderate-sized bilateral pleural effusions. Dictated by: Sulaiman Haines M.D. on 07/28/2016 at 18:04 Approved by: Sulaiman Haines M.D. on 07/28/2016 at 18:04 MRI SHOULDER LEFT WITHOUT CONTRAST ([id number]) IMPRESSION: 1. Markedly limited study due to extensive motion artifact. 2. Small glenohumeral joint effusion, slightly increased in the axillary pouch compared to the prior study. Finding is nonspecific but given history of infection, septic arthritis cannot be excluded. 3. No definite evidence of osteomyelitis. 4. Extensive subcutaneous edema, increased from the prior study, as well as edema tracking between the visualized periarticular musculature suggestive of myositis. This includes prominent edema tracking deep to the deltoid muscle along the lateral aspect of the humeral head as well as along the superficial aspect of the deltoid. 5. No definite abscess identified given limitations of the study. Dictated by: Sulaiman Haines M.D. on 07/22/2016 at 8:36 Approved by: Sulaiman Haines M.D. on 07/22/2016 at 8:36 . Cardiac Echo Impressions Echocardiogram Interpretation Summary: The left ventricle is normal in size, wall thickness, and systolic function without any focal wall motion abnormalities. The ejection fraction is estimated to be 55-60%. There is trace mitral regurgitation. No aortic regurgitation is present. Vegetation is once again noted on the tricuspid valve. (1.1 x 1.6 cm) The right ventricular systolic pressure is estimated at 48 mmHg assuming a right atrial pressure of 8 mm Hg. Electronically signed by: Kulwant Urena on Reading Physician:07/29/2016 12:37 PM . Assessment & Plan Darlene Miller is a 25-year-old female with past medical history significant for IV heroin and methamphetamine abuse who presented to [facility] ED with shortness of breath and chest pain. 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 Hospital day #20. 1. 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 - Renal function slightly worsened possibly secondary to diuresis. 2. Fluid overload, suspected right-sided heart failure. 3. Hypertensive emergency with encephalopathy. 4. MSSA acute tricuspid valve endocarditis with septic pulmonary emboli. - Currently on the IV nafcillin infusion 12 g over 24 hours x 6 weeks. 5. Subnephrotic-range proteinuria and hematuria r/o immune complex glomerulonephritis. 6. Probable septic left sternoclavicular joint. 7. Hypertensive right-sided heart failure. 8. Polysubstance abuse. 9. Anemia of chronic disease. PLAN: 1. Discontinued IV lasix 40 mg q 12 hr. Remove Neff catheter. 2. Continue chlorthalidone and metoprolol 100 mg BID. 3. Continue losartan 50 mg daily. 4. 2g Na diet. 5. Renal biopsy in remote future once infection has resolved. . GI Prophylaxis: Not indicated VTE Prophylaxis: Sub-Q Heparin (Unfractionated) VTE Mechanical Devices: Intermittant Pneumatic CD Resuscitation Status: CPR: Attempt Resuscitation Attending Statement Nephrology attending: Patient was seen and examined along with the internal medicine resident. I have reviewed the plan and agree with the note above. I have also discussed the case with Dr. Lee from infectious disease. In light of her ongoing issues now with her sternoclavicular abscess plans to transfer her to a larger facility for a debridement of this. 1.1 to her other issues stabilize we will consider doing a renal biopsy however, the current issues obviously take priority. Heather Metz DO Aug 03, 2016 09:35 Abel Monge DO Aug 03, 2016 15:38
[2016-08-03 14:09] LABS: Antiproteinase 3 (PR-3) Abs <3.5 U/mL (0.0-3.5); Perinuclear (P-ANCA) <1:20 titer (Neg:<1:20)
[2016-08-03] MEDS: NAFCILLIN IV SCH (15:07)
[2016-08-03] MEDS: DEXTROSE 5% IV SCH (15:07)
--- NOTE | 2016-08-03 16:15 | NUR ---
Anxiety, BP L. clavicle appeared to be more prominent. Dr. Lee aware and he ordered test and blood work. No fever today. Blood pressure is in better control with antihypertensive agents. Pt. was anxious ans she asked for Lorazepam PRN PO. Reassessed pt., found her to be more calm and writing quietly in room. She walked in the hallway a lot. She is cooperative. Care plan and questions were answered.
--- NOTE | 2016-08-03 20:11 | CONS ---
[address] [address] CONSULTATION REPORT PATIENT: RAJANI ALSTON : 1990 MR#: [id number] ADMIT: 07/15/2016 JOB ID: [id number] DATE OF SERVICE: 08/03/2016 REQUESTING PROVIDER: Kwame Ruth MD CHIEF COMPLAINT: Headaches, mental status changes. HISTORY OF PRESENT ILLNESS: The patient is a very pleasant, 25-year-old, left-handed woman with multiple medical problems including seizure disorder, whom I have seen in the past who was initially admitted here for shortness of breath and chest pain. She reported actively using IV heroin and occasionally IV methamphetamine prior to this and was noted to be homeless and staying at the homes of various friends. She does have a history of seizure disorder, asthma, IV substance abuse, history of recurrent urinary tract infections and pyelonephritis. Neurology consultation was requested as she reported the development of severe headaches which have now since resolved. She had a CT of her head on July 31, 2016 and this demonstrated bilateral symmetric edema in the cerebellar hemispheres. This was suggestive of the diagnosis of posterior reversible encephalopathy syndrome especially given that she did have hypertension emergency at that time. She reports that she does not recall the early days of her admission here which she attributes to confusion, although she reports that she does have poor memory at baseline. She reports that she is much improved today and feels back to baseline. She reports that her headaches have resolved. 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 She is on IV nafcillin. Appreciate the input of Dr. Abel eLe. It appears that she had two transthoracic echocardiograms, 1st one demonstrating normal left ventricular size, thickness, wall motion and systolic function with an ejection fraction of 60% to 65%, normal right ventricular size and function, moderate-sized vegetation 1.1 x 1.9 cm on the tricuspid valve, moderate to severe tricuspid regurgitation, unable to exclude aortic vegetation and no prior echo for comparison. A repeat echocardiogram demonstrated that the left ventricle was normal in size, wall thickness and systolic function without any focal wall motion abnormalities. The ejection fraction was estimated to be 55% to 60%. There was trace mitral regurgitation. No aortic regurgitation was noted. The vegetation was noted once again on the tricuspid valve, this time measuring 1.1 x 1.6 cm. The right ventricular systolic pressure was estimated to be 48 mmHg assuming a right atrial pressure of 8 mmHg. It appears that she did have hypertension throughout the course of her hospitalization, although it became severe, most severe it appears on the and and has since significantly improved and now normalized. She is being followed by multiple specialists including Orthopedics and Nephrology. Appreciate their input. 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 She was noted to have a hypertensive emergency which has since resolved. She also is noted to have anemia and acute diarrhea which was C. diff negative. REVIEW OF SYSTEMS: A complete review of systems was performed and was remarkable for above-noted. I reviewed her most recent MRI of the brain which was limited by extensive motion artifact markedly limiting the evaluation, however, noted to demonstrate bilateral regions of relatively symmetric edema within the cerebellar hemispheres. No restricted diffusions to suggest infarct. Additional bilateral scattered supratentorial regions of cortical and subcortical edema which are also nonspecific. The differential includes encephalitis, possible sequelae of septic emboli or mass lesions. Recommendation was for further evaluation with contrast enhanced images when clinically feasible. An MRA angiogram of her head without contrast demonstrated no definite high-grade stenosis or occlusion of the central intracranial arteries. ALLERGIES: SULFAMETHOXAZOLE TRIMETHOPRIM. At the time she was admitted she felt very fatigued, however, did not have any chills, cough, nausea, emesis, abdominal pain or dysuria. PAST SURGICAL HISTORY: None. FAMILY HISTORY: Her mother is alive and well. Her father, unfortunately, at age 45 from lung cancer. SOCIAL HISTORY: She is unemployed. She did complete high school. She does have a 2-year-old child, a daughter, who is living, healthy and well. LABORATORY STUDIES: From today, WBC 13.1, hemoglobin 9.4, hematocrit 3.3, platelets of 664. Chemistry: Sodium 137, potassium 3.9, chloride 97, bicarb 26, BUN 24, creatinine was 1.55, glucose was 124, total protein 3.0. LFTs within normal limits. PHYSICAL EXAMINATION: Temperature 37.5, pulse ranges between 100-117, respiratory rate of 16, blood pressure 126/87, pulse oximetry 95% on room air. General: She is a well-developed, well-nourished woman in no acute distress. She was seen wandering the hallway with her IV pole in place infusing Nafcillin. She was seated pleasantly on her bed. Mood was noted to be euthymic and congruent. Head: Normocephalic, atraumatic. Neck is supple. Negative Kernig. Negative Brudzinski. No carotid bruits were auscultated bilaterally. Chest: Clear to auscultation. Heart: Tachycardic. Otherwise regular rate and rhythm. Abdomen: Soft, nondistended, nontender. Extremities: No cyanosis, clubbing, or edema. NEUROLOGIC EXAMINATION: Mental status: She is awake, alert, oriented x3. Speech clear and fluent with intact comprehension. There was no aphasia. Mini-mental status examination: Champ Cognitive Assessment (MOCA) score of 28/30. She missed two words on recall, otherwise the rest of the test was within normal limits. Psychiatric: Appeared stable, euthymic, congruent. No tangential speech was noted. No pressured speech was noted. Cranial nerves: Pupils equal, round, reactive to light. Extraocular movements were smooth and conjugate with no evidence of nystagmus. Face appeared symmetrical. Facial sensation was intact to light touch and temperature. Auditory sensation was intact to finger rub. Palatal elevation was symmetrical. Tongue was midline. Sternocleidomastoid and trapezii are 5/5 bilaterally. Motor normal tone and bulk. Muscle strength 5/5 bilaterally. Sensation intact to light touch and temperature. Deep tendon reflexes 2+ and symmetrical. Plantars were flexor bilaterally. Coordination: [id number] was intact without evidence of dysmetria. Gait examination demonstrated normal narrow-based gait with a negative Romberg. IMPRESSION: 1. Posterior reversible encephalopathy syndrome likely secondary to hypertensive emergency which has now resolved. 2. Although it is certainly possible that the abnormalities appreciated on the magnetic resonance imaging study of her brain may be seen in the setting of posterior reversible encephalopathy syndrome, the vast majority of the abnormalities that are appreciated in posterior reversible encephalopathy syndrome are symmetrical and are noted to be in the posterior fossa or in the parieto-occipital head region. The scattered bilateral moderate-sized areas of cortical and subcortical edema involving the bilateral frontal and temporal lobes. Although certainly could represent abnormality seen in the setting of posterior reversible encephalopathy syndrome do present the possibility that represent the sequelae of septic emboli. Encephalitis appears unlikely given the clinical history and examination. Mass lesions also appear unlikely given the clinical history and examination. My suspicion is that they may represent a possible sequelae of septic emboli and in light of this, I do recommend obtaining a transesophageal echocardiogram to exclude any other potential etiology such as a patent foramen ovale or a further vegetation. RECOMMENDATIONS: I would continue medical management with IV nafcillin as per Dr. Lee. I also contacted Dr. Lee and discuss this case. Although it is certainly possible that these lesions may be the reflection of posterior reversible encephalopathy syndrome, given the severity of her illness with the presence of resolving septic emboli seen on a CT of her chest without contrast. My suspicion is that these abnormalities appreciated on the magnetic resonance imaging study of her brain represents possible sequelae of septic emboli, likely secondary again to the vegetation. I do recommend a repeat magnetic resonance imaging study of her brain with and without contrast at some point in the future when her renal function has stabilized, although I think it highly unlikely that these abnormalities represent mass lesions. Thank you again, Dr. Ruth, for allowing me to participate in the care of your patient. Please feel free to contact me with any questions or concerns.
--- NOTE | 2016-08-03 23:22 | PCM.PNMED ---
Subjective Date of Service Aug 03, 2016 Subjective Patient was ambulating in hallway and asked to return to her room where she was very cooperative. Patient complains omission of her left sternoclavicular joint. She also complained of some right flank pain today. Otherwise she has no new complaints. Exam Vital Signs Vital Sign - Last Date Time Temp Pulse Resp B/P Pulse Ox O2 Delivery O2 Flow Rate FiO2 08/03/16 21:50 Supplement Oxygen 08/03/16 20:51 37.2 116 16 136/94 97 07/30/16 14:56 07/30/16 05:10 2.00 Intake and Output 08/02/16 08/02/16 08/03/16 Cumulative From/Thru 15:00 23:00 07:00 07/15/16 18:29 - 08/03/16 06:27 Intake Total 1089 ml 1729 ml 84295 ml Output Total 3100 ml 3200 ml 31636 ml Balance -2011 ml -1471 ml 28942 ml Intake Oral 800 ml 1436 ml 43190 ml IV Total 289 ml 293 ml 88357 ml Packed Cells 965 ml Output Urine Total 3100 ml 3200 ml 90826 ml # Voids 15 # Bowel Movements 0 7 Exam General: Patient is less anxious. She is concerned about her left sternoclavicular joint.. HEENT: Head is atraumatic normocephalic. Eyes: Pupils are equally round and reactive to light and accommodation. Extraocular muscles are intact. Sclera are white anicteric. Subconjunctival mucosa is pink. Ears and nose are unremarkable. Oropharynx: There is no mucosal lesions, there is no thrush, there is no pharyngitis. Neck: Is supple, there are no nodes, or masses or tenderness. Chest: Is clear to auscultation and percussion. There are no rales, rhonchi, wheezes or rubs. The left sternoclavicular joint has become more swollen and slightly erythematous and slightly more fluctuant. Heart: Rate is tachycardic, rhythm is regular. There is no murmur, rub or gallop. Abdomen: Good bowel sounds are present. Abdomen is soft, nontender, no organomegaly or masses were appreciated. Extremities: Are symmetrical and well perfused. The left sternoclavicular joint is more swollen, slightly more fluctuant and slightly more erythematous. The remainder of the extremities show decreased edema, there is no cellulitis, no rash noted. Neurologic: There are no focal neurological deficits. Cranial nerves II through XII are intact. There are no sensory or motor deficits. Psychiatric: Patients mood is calm and shows no sign of agitation. Genital: Deferred Rectal: Deferred Lab and Diagnostics Result Diagram: 08/03/16 0845 08/03/16 0845 Microbiology Blood culture x7 positive for MSSA. Respiratory viral PCR negative. Strep pneumoniae and Legionella urine antigen negative. Influenza screen negative. C. difficile DNA amplification negative. Urine culture shows no growth to date. . X-Rays, CTs and MRIs CT BRAIN WITHOUT CONTRAST ([id number]) IMPRESSION: 1. Bilateral symmetric edema in the cerebellar hemispheres. Given patient's history of headache and hypertension, findings are compatible with hypertensive encephalopathy. The differential for the imaging appearance is bilateral cerebellar infarcts which are less likely given clinical history. 2. No intracranial hemorrhage, midline shift, or hydrocephalus. The findings were reported to the patient's nurse on 07/31/16 at 1:[address] [facility] radiology services. Dictated by: Sulaiman Haines M.D. on 07/31/2016 at 8:32 Approved by: Sulaiman Haines M.D. on 07/31/2016 at 8:32 X-RAY CHEST, TWO VIEWS ([id number]) IMPRESSION: Subpulmonic pleural effusions bilaterally right, and there also appears to be left greater than right pneumonia in each lung base. The appearance has worsened sequentially from 07/16/16 through 07/24/16 2 the current study. Dictated by: Jaya Carranza M.D. on 07/29/2016 at 13:05 Approved by: Jaya Carranza M.D. on 07/29/2016 at 13:05 MRI CERVICAL SPINE WITH AND WITHOUT CONTRAST ([id number]) IMPRESSION: 1. No evidence of discitis-osteomyelitis in the cervical spine. 2. No high-grade spinal canal or neuroforaminal narrowing. Dictated by: Sulaiman Haines M.D. on 07/28/2016 at 18:10 Approved by: Sulaiman Haines M.D. on 07/28/2016 at 18:10 MRI LUMBAR SPINE WITH AND WITHOUT CONTRAST ([id number]) IMPRESSION: 1. No evidence of discitis-osteomyelitis in the lumbar spine. 2. No spinal canal or neuroforaminal narrowing. Dictated by: Sulaiman Haines M.D. on 07/28/2016 at 18:38 Approved by: Sulaiman Haines M.D. on 07/28/2016 at 18:38 MRI THORACIC SPINE WITH AND WITHOUT CONTRAST ([id number]) IMPRESSION: 1. No evidence of osteomyelitis or discitis in the thoracic spine. 2. Moderate-sized bilateral pleural effusions. Dictated by: Sulaiman Haines M.D. on 07/28/2016 at 18:04 Approved by: Sulaiman Haines M.D. on 07/28/2016 at 18:04 MRI SHOULDER LEFT WITHOUT CONTRAST ([id number]) IMPRESSION: 1. Markedly limited study due to extensive motion artifact. 2. Small glenohumeral joint effusion, slightly increased in the axillary pouch compared to the prior study. Finding is nonspecific but given history of infection, septic arthritis cannot be excluded. 3. No definite evidence of osteomyelitis. 4. Extensive subcutaneous edema, increased from the prior study, as well as edema tracking between the visualized periarticular musculature suggestive of myositis. This includes prominent edema tracking deep to the deltoid muscle along the lateral aspect of the humeral head as well as along the superficial aspect of the deltoid. 5. No definite abscess identified given limitations of the study. Dictated by: Sulaiman Haines M.D. on 07/22/2016 at 8:36 Approved by: Sulaiman Haines M.D. on 07/22/2016 at 8:36 . Cardiac Echo Impressions Echocardiogram Interpretation Summary: The left ventricle is normal in size, wall thickness, and systolic function without any focal wall motion abnormalities. The ejection fraction is estimated to be 55-60%. There is trace mitral regurgitation. No aortic regurgitation is present. Vegetation is once again noted on the tricuspid valve. (1.1 x 1.6 cm) The right ventricular systolic pressure is estimated at 48 mmHg assuming a right atrial pressure of 8 mm Hg. Electronically signed by: Kulwant Urena on Reading Physician:07/29/2016 12:37 PM . Assessment & Plan Darlene Miller is a 25-year-old female with past medical history significant for IV heroin and methamphetamine abuse who presented to the ED with shortness of breath and chest pain. 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 Hospital day 16. 1. Severe sepsis, present on admission, active. - On admission temp 38.4, pulse 132, blood pressure 106/55, respiratory rate 24 , WBC 18.7, creatinine 2.11. - Fluid resuscitation and norepinephrine used initially. Currently hemodynamically stable. - Multiple blood cultures have come back MSSA. Her last set appears to be sterile. 2. 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 - Severe tricuspid regurgitation by echo. - Nafcillin 12,000 mg every 24 hours started 07/28/16. Tentative completion date of 08/31/16. - Repeat Echo on 07/29/16 continues to reveal vegetation measuring 1.1 x 1.6 cm. - Infectious disease following. Appreciate time and expertise. 3. Likely acute septic left sternoclavicular joint, likely present on admission , active and appears to be worsening. - MRI on 07/22/16 showed extensive subcutaneous edema but no definitive evidence of osteomyelitis. - Joint aspirated by ortho. - Cultures of joint aspirate no growth to date. - Antibiotics as above. - Discussed with Orthopedic surgery and they are recommending that if the sternoclavicular joint needs debridement the patient should be sent to a tertiary facility with a plastic surgeon or cardiothoracic surgeon that would be willing to do this procedure. -Discussed with Dr. Lee and he agrees that this likely is going to need surgical debridement. 4. 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 - BUN and creatinine on admission 36 and 2.11. - BUN and creatinine stabilizing. Today creatinine is 1.12 - Nephrology following. Appreciate their time and expertise. 5. Generalized anasarca and fluid overload, not present on admission, active. - Etiology secondary to fluid resuscitation and right heart failure. - IV lasix 40 mg q 12 hr has been discontinued. - Continue Chlorthalidone 25 mg daily. - Continue 2 g sodium dietary restriction. - Nephrology following. Appreciate time and expertise. 6. Acute back pain, present on admission, active. - MRI of spine unremarkable. - Pain management with scheduled oxycodone 12.5 mg every 4 hours with 10% reduction everyday. 7. Hypertensive emergency, not present on admission, resolved - CT head 07/31/16 revealed bilateral symmetric edema in the cerebral hemispheres but no midline shift or intracranial hemorrhage. - Nicardipine drip stopped. - Metoprolol 100 mg twice a day. - Nifedipine 60 mg daily changed for losartan 50 mg daily due to tachycardia - Continue chlorthalidone and metoprolol 100 mg BID. - IV labetalol PRN SBP>180 or DBP>110. - Due to cerebral edema seen on CAT scan I have consulted Dr. Amilcar Laird. I reviewed CT scan with him and he recommended an MRI stroke protocol. Patient completed part of the study but could not complete the rest despite receiving 10 mg of by mouth Valium along with oxycodone before the exam. - Dr. Laird's impression and recommendations are as follows: "IMPRESSION: 1. Posterior reversible encephalopathy syndrome likely secondary to hypertensive emergency which has now resolved. 2. Although it is certainly possible that the abnormalities appreciated on the magnetic resonance imaging study of her brain may be seen in the setting of posterior reversible encephalopathy syndrome, the vast majority of the abnormalities that are appreciated in posterior reversible encephalopathy syndrome are symmetrical and are noted to be in the posterior fossa or in the parieto-occipital head region. The scattered bilateral moderate-sized areas of cortical and subcortical edema involving the bilateral frontal and temporal lobes. Although certainly could represent abnormality seen in the setting of posterior reversible encephalopathy syndrome do present the possibility that represent the sequelae of septic emboli. Encephalitis appears unlikely given the clinical history and examination. Mass lesions also appear unlikely given the clinical history and examination. My suspicion is that they may represent a possible sequelae of septic emboli and in light of this, I do recommend obtaining a transesophageal echocardiogram to exclude any other potential etiology such as a patent foramen ovale or a further vegetation. RECOMMENDATIONS: I would continue medical management with IV nafcillin as per Dr. Lee. I also contacted Dr. Lee and discuss this case. Although it is certainly possible that these lesions may be the reflection of posterior reversible encephalopathy syndrome, given the severity of her illness with the presence of resolving septic emboli seen on a CT of her chest without contrast. My suspicion is that these abnormalities appreciated on the magnetic resonance imaging study of her brain represents possible sequelae of septic emboli, likely secondary again to the vegetation. I do recommend a repeat magnetic resonance imaging study of her brain with and without contrast at some point in the future when her renal function has stabilized, although I think it highly unlikely that these abnormalities represent mass lesions." 8. Substance abuse, chronic, present on admission, active - History of IV heroin and methamphetamine use - Has been on Suboxone and methadone in the past. - Social work referral. - Dr. Sy discussed patient's case with Dr. Jensen (our ED physician who also prescribes and follows patient at clinic for Suboxone). Dr. Jensen graciously agrees to prescribe the patient Suboxone when she is ready for discharge and to follow her in her clinic provided that social work will setup the followup appointment and for Dr. Jensen to be contacted by the hospitalist team few days prior to patient's discharge. (Dr. Jensen's phone# is [phone] or he can be found in the ED). - If patient agrees to be off of narcotics for 24hours and try to tolerate her symptoms with Clonidine and Zofran for 24 hours will start her on Suboxone at 16mg/day at that point. 9. Anemia, normocytic normochromic, chronicity unknown. Present on admission. Active. - No evidence of active bleeding - Negative hemolytic workup, she did get 2 units of packed red blood cells earlier during this hospital - Continue to monitor. 10. Pain management - Patient switched from oral Dilaudid to oxycodone 15 mg every 4 hours on . - Patient will be titrated down 10% of morphine equivalents daily. - Discussed plan with the pharmacist. - Avoid additional narcotics and IV pain medications. 11. Urinary tract infection, present on admission, treated and resolved. 12. Acute diarrhea, not present on admission, resolved. - C. difficile negative Disposition: Patient needs to be transferred to a tertiary care center where she can have debridement of the left sternoclavicular joint likely with resection of the clavicular head and possibly part of the manubrium. Patient could also receive a transesophageal echocardiogram there. Also, patient would benefit from a repeat MRI stroke protocol under anesthesia or adequate sedation to be able to complete the exam. Patient also needs repeat CT scanning of the chest at some point due to her new pleuritic pain. She may be developing a new abscess or empyema. Appreciate all consultants input.. Please see Dr. Lee's note. . Pain Evaluation: Adequate Pain Control GI Prophylaxis: Not indicated VTE Prophylaxis: Sub-Q Heparin (Unfractionated) VTE Mechanical Devices: Intermittant Pneumatic CD Resuscitation Status: CPR: Attempt Resuscitation FarazKwame MD Aug 03, 2016 23:22
[2016-08-04] VITALS (9 sets, daily range): BP systolic 126–132; BP diastolic 83–91; PULSE 93–126; RESP 16–18; O2SAT 93–97
[2016-08-04] MEDS: Heparin 5,000 Unit/mL Inj SUBQ SCH ×3 (00:28→16:09)
[2016-08-04 06:05] LABS: BASOPHILS % (AUTO) 0.4 % (0-3); MONOCYTES % (AUTO) 8.5 % (4-12); Mean Corpuscular Hemoglobin 27.4 pg (27.0-35.0); Mean Corpuscular Volume 89.2 fL (81-100); NEUTROPHILS % (AUTO) 48.7 % (40-74); Platelet Count 601 bil/L (150-400)
[2016-08-04 06:28] LABS: Magnesium 2.2 mg/dL (1.6-2.6)
--- NOTE | 2016-08-04 07:52 | PCM.PNMED ---
Subjective Date of Service Aug 04, 2016 Subjective Patient is complaining of left sternoclavicular joint discomfort which is continuing. She also has some small amount of hair loss which may be due to her severe illness. Exam Vital Signs Vital Sign - Last Date Time Temp Pulse Resp B/P Pulse Ox O2 Delivery O2 Flow Rate FiO2 08/04/16 05:34 36.9 101 16 127/89 96 Room Air 07/30/16 14:56 07/30/16 05:10 2.00 Intake and Output 08/03/16 08/03/16 08/04/16 Cumulative From/Thru 15:00 23:00 07:00 07/15/16 18:29 - 08/04/16 06:03 Intake Total 1386 ml 1386 ml 30177 ml Output Total 1500 ml 1700 ml 54575 ml Balance -114 ml -314 ml 71242 ml Intake Oral 1050 ml 1100 ml 37931 ml IV Total 336 ml 286 ml 45444 ml Packed Cells 965 ml Output Urine Total 1500 ml 1700 ml 70082 ml # Voids 15 # Bowel Movements 1 0 8 Exam Constitutional: Young female who appears fairly energetic Head: Normocephalic atraumatic Neck: No adenopathy Chest: Clear to auscultation. Cor: Slightly tachycardic S1-S2 without murmur Abdomen: Soft nontender bowel sounds present Extremities: Trace bilateral pedal edema, there is tenderness and inflammation over the left sternoclavicular joint Neuro: Alert and oriented 3, motor strength is intact bilaterally Lab and Diagnostics Laboratory Tests 72 Hours Test 08/03/16 08:45 08/04/16 05:54 White Blood Count 13.1th/mm3 (3.8-10.1) 10.3th/mm3 (3.8-10.1) Red Blood Count 3.42mil/mm3 (3.90-5.20) 3.14mil/mm3 (3.90-5.20) Hemoglobin 9.4g/dL (12.0-15.6) 8.6g/dL (12.0-15.6) Hematocrit 30.3% (35.0-46.0) 28.0% (35.0-46.0) Mean Corpuscular Volume 88.6fL (81-100) 89.2fL (81-100) Mean Corpuscular Hemoglobin 27.5pg (27.0-35.0) 27.4pg (27.0-35.0) Mean Corpuscular Hemoglobin Concent 31.0% (32.0-37.0) 30.7% (32.0-37.0) Red Cell Distribution Width 15.2% (12.3-15.4) 15.3% (12.3-15.4) Platelet Count 664bil/L (150-400) 601bil/L (150-400) Neutrophils (%) (Auto) 58.1% (40-74) 48.7% (40-74) Lymphocytes (%) (Auto) 31.4% (14-46) 39.0% (14-46) Monocytes (%) (Auto) 7.1% (4-12) 8.5% (4-12) Eosinophils (%) (Auto) 2.4% (0-5) 3.0% (0-5) Basophils (%) (Auto) 0.7% (0-3) 0.4% (0-3) Sodium Level 137mEq/L (134-144) 139mEq/L (134-144) Potassium Level 3.9mEq/L (3.5-5.2) 4.3mEq/L (3.5-5.2) Chloride Level 97mEq/L (97-108) 100mEq/L (97-108) Carbon Dioxide Level 26mmol/L (18-29) 28mmol/L (18-29) Blood Urea Nitrogen 24mg/dL (6-20) 28mg/dL (6-20) Creatinine 1.55mg/dL (0.57-1.00) 1.50mg/dL (0.57-1.00) Estimat Glomerular Filtration Rate 59mL/min (>59) 62mL/min (>59) Glucose Level 124mg/dL (60-99) 110mg/dL (60-99) Calcium Level 8.8mg/dL (8.5-10.1) 8.6mg/dL (8.5-10.1) Total Bilirubin 0.2mg/dL (0.0-1.2) 0.2mg/dL (0.0-1.2) Aspartate Amino Transf (AST/SGOT) 10U/L (0-50) 8U/L (0-50) Alanine Aminotransferase (ALT/SGPT) 5U/L (0-32) 5U/L (0-32) Alkaline Phosphatase 55U/L (25-150) 51U/L (25-150) Total Protein 8.0g/dL (6.4-8.4) 7.4g/dL (6.4-8.4) Albumin 3.0g/dL (3.4-5.0) 2.7g/dL (3.4-5.0) Hold Ross Top Tube Received (Received) Complement C3 158mg/dL (82-167) Complement C4 22mg/dL (14-44) Magnesium Level 2.2mg/dL (1.6-2.6) C-Reactive Protein 5.4mg/dL (0.0-0.5) Result Diagram: 08/04/16 0554 08/04/16 0554 Microbiology Blood culture x7 positive for MSSA. Respiratory viral PCR negative. Strep pneumoniae and Legionella urine antigen negative. Influenza screen negative. C. difficile DNA amplification negative. Urine culture shows no growth to date. . X-Rays, CTs and MRIs CT BRAIN WITHOUT CONTRAST ([id number]) IMPRESSION: 1. Bilateral symmetric edema in the cerebellar hemispheres. Given patient's history of headache and hypertension, findings are compatible with hypertensive encephalopathy. The differential for the imaging appearance is bilateral cerebellar infarcts which are less likely given clinical history. 2. No intracranial hemorrhage, midline shift, or hydrocephalus. The findings were reported to the patient's nurse on 07/31/16 at 1:10 AM by [facility] radiology services. Dictated by: Sulaiman Haines M.D. on 07/31/2016 at 8:32 Approved by: Sulaiman Haines M.D. on 07/31/2016 at 8:32 X-RAY CHEST, TWO VIEWS ([id number]) IMPRESSION: Subpulmonic pleural effusions bilaterally right, and there also appears to be left greater than right pneumonia in each lung base. The appearance has worsened sequentially from 07/16/16 through 07/24/16 2 the current study. Dictated by: Jaya Carranza M.D. on 07/29/2016 at 13:05 Approved by: Jaya Carranza M.D. on 07/29/2016 at 13:05 MRI CERVICAL SPINE WITH AND WITHOUT CONTRAST ([id number]) IMPRESSION: 1. No evidence of discitis-osteomyelitis in the cervical spine. 2. No high-grade spinal canal or neuroforaminal narrowing. Dictated by: Sulaiman Haines M.D. on 07/28/2016 at 18:10 Approved by: Sulaiman Haines M.D. on 07/28/2016 at 18:10 MRI LUMBAR SPINE WITH AND WITHOUT CONTRAST ([id number]) IMPRESSION: 1. No evidence of discitis-osteomyelitis in the lumbar spine. 2. No spinal canal or neuroforaminal narrowing. Dictated by: Sulaiman Haines M.D. on 07/28/2016 at 18:38 Approved by: Sulaiman Haines M.D. on 07/28/2016 at 18:38 MRI THORACIC SPINE WITH AND WITHOUT CONTRAST ([id number]) IMPRESSION: 1. No evidence of osteomyelitis or discitis in the thoracic spine. 2. Moderate-sized bilateral pleural effusions. Dictated by: Sulaiman Haines M.D. on 07/28/2016 at 18:04 Approved by: Sulaiman Haines M.D. on 07/28/2016 at 18:04 MRI SHOULDER LEFT WITHOUT CONTRAST ([id number]) IMPRESSION: 1. Markedly limited study due to extensive motion artifact. 2. Small glenohumeral joint effusion, slightly increased in the axillary pouch compared to the prior study. Finding is nonspecific but given history of infection, septic arthritis cannot be excluded. 3. No definite evidence of osteomyelitis. 4. Extensive subcutaneous edema, increased from the prior study, as well as edema tracking between the visualized periarticular musculature suggestive of myositis. This includes prominent edema tracking deep to the deltoid muscle along the lateral aspect of the humeral head as well as along the superficial aspect of the deltoid. 5. No definite abscess identified given limitations of the study. Dictated by: Sulaiman Haines M.D. on 07/22/2016 at 8:36 Approved by: Sulaiman Haines M.D. on 07/22/2016 at 8:36 .Patient Name: DARLENE MILLER MR#: [id number] Location: [facility] Ordering Phys: Abel Lee MD Date of Service: 08/03/16 0819 PROCEDURE: CT CHEST WITHOUT CONTRAST ([id number]) INDICATIONS: F/U septic [id number] pain TECHNIQUE: Noncontrast 5 mm thick sections acquired from the pulmonary apices to the posterior costophrenic angles. 7 mm thick coronal and sagittal MIP reformats were then acquired. For radiation dose reduction, the following was used: automated exposure control, adjustment of mA and/or kV according to patient size. COMPARISON: [facility], CT, CT CHEST WO CON, 07/17/2016, 14:03. FINDINGS: Image quality: Excellent. Lungs and pleura: Increased, small to moderate bilateral pleural effusions are present. There is increased, bibasilar airspace opacity. Previously seen cavitary bilateral lung nodules have decreased moderately in size. Central and peripheral airways are patent and normal in caliber. Mediastinum: Heart size is normal. No pericardial effusion. No mediastinal adenopathy by size criteria. Thoracic aorta and central pulmonary arteries are normal in size. Esophagus is normal in caliber. No hiatal hernia. Bones and chest wall: No suspicious bony lesions. No vertebral body compression fractures. No axillary or supraclavicular adenopathy by size criteria. Thyroid gland is within normal limits. Abdomen: Visualized upper abdominal solid organs and bowel loops appear normal in the absence of contrast. IMPRESSION: 1. Resolving septic emboli. 2. Increased bilateral pleural effusions and increased bibasilar pneumonia versus atelectasis. Dictated by: Antonieta Hayward M.D. on 08/03/2016 at 12:06 Approved by: Antonieta Hayward M.D. on 08/03/2016 at 12:06 Cardiac Echo Impressions Echocardiogram Interpretation Summary: The left ventricle is normal in size, wall thickness, and systolic function without any focal wall motion abnormalities. The ejection fraction is estimated to be 55-60%. There is trace mitral regurgitation. No aortic regurgitation is present. Vegetation is once again noted on the tricuspid valve. (1.1 x 1.6 cm) The right ventricular systolic pressure is estimated at 48 mmHg assuming a right atrial pressure of 8 mm Hg. Electronically signed by: Kulwant Urena on Reading Physician:07/29/2016 12:37 PM . Assessment & Plan Darlene Miller is a 25-year-old female with past medical history significant for IV heroin and methamphetamine abuse who presented to the ED with shortness of breath and chest pain. 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 Hospital day 16. 1. Severe sepsis, present on admission, active. - On admission temp 38.4, pulse 132, blood pressure 106/55, respiratory rate 24 , WBC 18.7, creatinine 2.11. - Fluid resuscitation and norepinephrine used initially. Currently hemodynamically stable. - Multiple blood cultures have come back MSSA. Her last set appears to be sterile. 2. 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 - Severe tricuspid regurgitation by echo. - Nafcillin 12,000 mg every 24 hours started 07/28/16. Tentative completion date of 08/31/16. - Repeat Echo on 07/29/16 continues to reveal vegetation measuring 1.1 x 1.6 cm. - Infectious disease following. Appreciate time and expertise. 3. Likely acute septic left sternoclavicular joint, likely present on admission , active and appears to be worsening. - MRI on 07/22/16 showed extensive subcutaneous edema but no definitive evidence of osteomyelitis. - Joint aspirated by ortho. - Cultures of joint aspirate no growth to date. - Antibiotics as above. - Discussed with Orthopedic surgery and they are recommending that if the sternoclavicular joint needs debridement the patient should be sent to a tertiary facility with a plastic surgeon or cardiothoracic surgeon that would be willing to do this procedure. -Discussed with Dr. Lee and he agrees that this likely is going to need surgical debridement. 4. 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 - BUN and creatinine on admission 36 and 2.11. - BUN and creatinine stabilizing. Today creatinine is 1.12 - Nephrology following. Appreciate their time and expertise. 5. Generalized anasarca and fluid overload, not present on admission, active. - Etiology secondary to fluid resuscitation and right heart failure. - IV lasix 40 mg q 12 hr has been discontinued. - Continue Chlorthalidone 25 mg daily. - Continue 2 g sodium dietary restriction. - Nephrology following. Appreciate time and expertise. 6. Acute back pain, present on admission, active. - MRI of spine unremarkable. - Pain management with scheduled oxycodone 12.5 mg every 4 hours with 10% reduction everyday. 7. Hypertensive emergency, not present on admission, resolved - CT head 07/31/16 revealed bilateral symmetric edema in the cerebral hemispheres but no midline shift or intracranial hemorrhage. - Nicardipine drip stopped. - Metoprolol 100 mg twice a day. - Nifedipine 60 mg daily changed for losartan 50 mg daily due to tachycardia - Continue chlorthalidone and metoprolol 100 mg BID. - IV labetalol PRN SBP>180 or DBP>110. - Due to cerebral edema seen on CAT scan I have consulted Dr. Amilcar Laird. I reviewed CT scan with him and he recommended an MRI stroke protocol. Patient completed part of the study but could not complete the rest despite receiving 10 mg of by mouth Valium along with oxycodone before the exam. - Dr. Laird's impression and recommendations are as follows: "IMPRESSION: 1. Posterior reversible encephalopathy syndrome likely secondary to hypertensive emergency which has now resolved. 2. Although it is certainly possible that the abnormalities appreciated on the magnetic resonance imaging study of her brain may be seen in the setting of posterior reversible encephalopathy syndrome, the vast majority of the abnormalities that are appreciated in posterior reversible encephalopathy syndrome are symmetrical and are noted to be in the posterior fossa or in the parieto-occipital head region. The scattered bilateral moderate-sized areas of cortical and subcortical edema involving the bilateral frontal and temporal lobes. Although certainly could represent abnormality seen in the setting of posterior reversible encephalopathy syndrome do present the possibility that represent the sequelae of septic emboli. Encephalitis appears unlikely given the clinical history and examination. Mass lesions also appear unlikely given the clinical history and examination. My suspicion is that they may represent a possible sequelae of septic emboli and in light of this, I do recommend obtaining a transesophageal echocardiogram to exclude any other potential etiology such as a patent foramen ovale or a further vegetation. RECOMMENDATIONS: I would continue medical management with IV nafcillin as per Dr. Lee. I also contacted Dr. Lee and discuss this case. Although it is certainly possible that these lesions may be the reflection of posterior reversible encephalopathy syndrome, given the severity of her illness with the presence of resolving septic emboli seen on a CT of her chest without contrast. My suspicion is that these abnormalities appreciated on the magnetic resonance imaging study of her brain represents possible sequelae of septic emboli, likely secondary again to the vegetation. I do recommend a repeat magnetic resonance imaging study of her brain with and without contrast at some point in the future when her renal function has stabilized, although I think it highly unlikely that these abnormalities represent mass lesions." 8. Substance abuse, chronic, present on admission, active - History of IV heroin and methamphetamine use - Has been on Suboxone and methadone in the past. - Social work referral. - Dr. Sy discussed patient's case with Dr. Jensen (our ED physician who also prescribes and follows patient at clinic for Suboxone). Dr. Jensen graciously agrees to prescribe the patient Suboxone when she is ready for discharge and to follow her in her clinic provided that social work will setup the followup appointment and for Dr. Jensen to be contacted by the hospitalist team few days prior to patient's discharge. (Dr. Jensen's phone# is [phone] or he can be found in the ED). - If patient agrees to be off of narcotics for 24hours and try to tolerate her symptoms with Clonidine and Zofran for 24 hours will start her on Suboxone at 16mg/day at that point. 9. Anemia, normocytic normochromic, chronicity unknown. Present on admission. Active. - No evidence of active bleeding - Negative hemolytic workup, she did get 2 units of packed red blood cells earlier during this hospital - Continue to monitor. 10. Pain management - Patient switched from oral Dilaudid to oxycodone 15 mg every 4 hours on . - Patient will be titrated down 10% of morphine equivalents daily. - Discussed plan with the pharmacist. - Avoid additional narcotics and IV pain medications. 11. Urinary tract infection, present on admission, treated and resolved. 12. Acute diarrhea, not present on admission, resolved. - C. difficile negative 13. Left sternoclavicular joint inflammation possibly septic joint, acute, present after admission Await decision on management from infectious disease and orthopedic consultations. Disposition: Patient needs to be transferred to a tertiary care center where she can have debridement of the left sternoclavicular joint likely with resection of the clavicular head and possibly part of the manubrium. Patient could also receive a transesophageal echocardiogram there. Also, patient would benefit from a repeat MRI stroke protocol under anesthesia or adequate sedation to be able to complete the exam. Patient also needs repeat CT scanning of the chest at some point due to her new pleuritic pain. She may be developing a new abscess or empyema. Appreciate all consultants input.. Please see Dr. Lee's note. . GI Prophylaxis: Not indicated VTE Prophylaxis: Sub-Q Heparin (Unfractionated) VTE Mechanical Devices: Intermittant Pneumatic CD Resuscitation Status: CPR: Attempt Resuscitation Time spent 30 minutes Ese Amanda MD Aug 04, 2016 07:52
[2016-08-04] MEDS: DEXTROSE 5% IV SCH ×2 (08:00→20:56)
[2016-08-04] MEDS: NAFCILLIN IV SCH ×2 (08:00→20:56)
[2016-08-04] MEDS: MeTOProlol XL 50 mg ER24 Tablet PO SCH ×2 (08:19→20:26)
[2016-08-04] MEDS: hydrOXYzine Pamoate 25 mg Capsule PO SCH ×2 (08:19→13:55)
[2016-08-04] MEDS: lamoTRIgine 100 mg Tablet PO SCH ×2 (08:20→20:25)
[2016-08-04] MEDS: LORazepam 1 mg Tablet PO PRN ×3 (08:39→20:26)
--- NOTE | 2016-08-04 08:41 | PCM.PNMED ---
Subjective Date of Service Aug 04, 2016 Subjective Nephrology Progress Note: Attending Dr. Monge Darlene Miller is a 25-year-old female with past medical history significant for IV heroin and methamphetamine abuse who presented to [facility] ED with shortness of breath and chest pain. 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 Hospital day #21. Overnight: There were no acute events. Telemetry over night: Sinus tachycardia , heart rate 90 to 110s, without ectopy. The patient is resting in bed side chair comfortably and in no acute distress. The patient endorses difficulty taking a deep breath, right-sided rib cage pain and sternoclavicular abscess pain and warmth. She denies headache, chest pain, palpitations, shortness of breath, abdominal pain, nausea, vomiting, fever, chills, dysuria, diarrhea or constipation. She is voiding without difficulty. Exam Vital Signs Vital Sign - Last Date Time Temp Pulse Resp B/P Pulse Ox O2 Delivery O2 Flow Rate FiO2 08/04/16 08:09 37.3 107 18 132/88 95 Room Air 07/30/16 14:56 07/30/16 05:10 2.00 Intake and Output 08/03/16 08/03/16 08/04/16 Cumulative From/Thru 15:00 23:00 07:00 07/15/16 18:29 - 08/04/16 06:03 Intake Total 1386 ml 1386 ml 48239 ml Output Total 1500 ml 1700 ml 31345 ml Balance -114 ml -314 ml 60840 ml Intake Oral 1050 ml 1100 ml 89579 ml IV Total 336 ml 286 ml 84666 ml Packed Cells 965 ml Output Urine Total 1500 ml 1700 ml 65209 ml # Voids 15 # Bowel Movements 1 0 8 Exam General: Chronically ill-appearing young woman, in no acute distress. HEENT: Normocephalic, atraumatic. External ears without defect. Pupils equal, round, and reactive to light and accommodation. Neck: Supple with full range of motion. Cardiovascular: Tachycardic with regular rhythm and no murmurs, rubs, or gallops appreciated. Pulmonary: Lungs with crackles at bilateral bases. Normal respiratory effort with no use of accessory muscles. Abdomen: Soft, nontender, nondistended, bowel sounds present. No hepatosplenomegaly or masses appreciated. Extremities: Left sternoclavicular joint increasingly swollen and tender to palpation with no erythema. No clubbing, cyanosis, or edema. Neurological: Cranial nerves grossly intact. . IVs and Medications Medications Reviewed: Medications were reviewed in detail Lab and Diagnostics Item Value Date Time Calcium Level 8.6 mg/dL 08/04/16 05 Magnesium Level 2.2 mg/dL 08/04/16 0554 Total Bilirubin 0.2 mg/dL 08/04/16 0554 Aspartate Amino Transf (AST/SGOT) 8 U/L 08/04/16 0554 Alanine Aminotransferase (ALT/SGPT) 5 U/L 08/04/16 05 Alkaline Phosphatase 51 U/L 08/04/16 05 C-Reactive Protein 5.4 mg/dL H 08/04/16 0554 Total Protein 7.4 g/dL 08/04/16 05 Albumin 2.7 g/dL L 08/04/16 05 Result Diagram: 08/04/16 0508/04/16 05 Microbiology Blood culture x7 positive for MSSA. Respiratory viral PCR negative. Strep pneumoniae and Legionella urine antigen negative. Influenza screen negative. C. difficile DNA amplification negative. Urine culture shows no growth to date. . X-Rays, CTs and MRIs CT BRAIN WITHOUT CONTRAST IMPRESSION: 1. Bilateral symmetric edema in the cerebellar hemispheres. Given patient's history of headache and hypertension, findings are compatible with hypertensive encephalopathy. The differential for the imaging appearance is bilateral cerebellar infarcts which are less likely given clinical history. 2. No intracranial hemorrhage, midline shift, or hydrocephalus. The findings were reported to the patient's nurse on 07/31/16 at 1:10 AM by [facility] radiology services. Dictated by: Sulaiman Haines M.D. on 07/31/2016 at 8:32 Approved by: Sulaiman Haines M.D. on 07/31/2016 at 8:32 X-RAY CHEST, TWO VIEWS IMPRESSION: Subpulmonic pleural effusions bilaterally right, and there also appears to be left greater than right pneumonia in each lung base. The appearance has worsened sequentially from 07/16/16 through 07/24/16 2 the current study. Dictated by: Jaya Carranza M.D. on 07/29/2016 at 13:05 Approved by: Jaya Carranza M.D. on 07/29/2016 at 13:05 MRI CERVICAL SPINE WITH AND WITHOUT CONTRAST IMPRESSION: 1. No evidence of discitis-osteomyelitis in the cervical spine. 2. No high-grade spinal canal or neuroforaminal narrowing. Dictated by: Sulaiman Haines M.D. on 07/28/2016 at 18:10 Approved by: Sulaiman Haines M.D. on 07/28/2016 at 18:10 MRI LUMBAR SPINE WITH AND WITHOUT CONTRAST IMPRESSION: 1. No evidence of discitis-osteomyelitis in the lumbar spine. 2. No spinal canal or neuroforaminal narrowing. Dictated by: Sulaiman Haines M.D. on 07/28/2016 at 18:38 Approved by: Sulaiman Haines M.D. on 07/28/2016 at 18:38 MRI THORACIC SPINE WITH AND WITHOUT CONTRAST IMPRESSION: 1. No evidence of osteomyelitis or discitis in the thoracic spine. 2. Moderate-sized bilateral pleural effusions. Dictated by: Sulaiman Haines M.D. on 07/28/2016 at 18:04 Approved by: Sulaiman Haines M.D. on 07/28/2016 at 18:04 MRI SHOULDER LEFT WITHOUT CONTRAST IMPRESSION: 1. Markedly limited study due to extensive motion artifact. 2. Small glenohumeral joint effusion, slightly increased in the axillary pouch compared to the prior study. Finding is nonspecific but given history of infection, septic arthritis cannot be excluded. 3. No definite evidence of osteomyelitis. 4. Extensive subcutaneous edema, increased from the prior study, as well as edema tracking between the visualized periarticular musculature suggestive of myositis. This includes prominent edema tracking deep to the deltoid muscle along the lateral aspect of the humeral head as well as along the superficial aspect of the deltoid. 5. No definite abscess identified given limitations of the study. Dictated by: Sulaiman Haines M.D. on 07/22/2016 at 8:36 Approved by: Sulaiman Haines M.D. on 07/22/2016 at 8:36 CT CHEST WITHOUT CONTRAST IMPRESSION: 1. Resolving septic emboli. 2. Increased bilateral pleural effusions and increased bibasilar pneumonia versus atelectasis. Dictated by: Antonieta Hayward M.D. on 08/03/2016 at 12:06 Approved by: Antonieta Hayward M.D. on 08/03/2016 at 12:06 . Cardiac Echo Impressions Echocardiogram Interpretation Summary: The left ventricle is normal in size, wall thickness, and systolic function without any focal wall motion abnormalities. The ejection fraction is estimated to be 55-60%. There is trace mitral regurgitation. No aortic regurgitation is present. Vegetation is once again noted on the tricuspid valve. (1.1 x 1.6 cm) The right ventricular systolic pressure is estimated at 48 mmHg assuming a right atrial pressure of 8 mm Hg. Electronically signed by: Kulwant Urena on Reading Physician:07/29/2016 12:37 PM . Assessment & Plan Darlene Miller is a 25-year-old female with past medical history significant for IV heroin and methamphetamine abuse who presented to [facility] ED with shortness of breath and chest pain. 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 Hospital day #21. 1. 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 2. Fluid overload, suspected right-sided heart failure. Resolving. 3. Hypertensive emergency with encephalopathy. 4. MSSA acute tricuspid valve endocarditis with septic pulmonary emboli. - Currently on the IV nafcillin infusion 12 g over 24 hours x 6 weeks. 5. Subnephrotic-range proteinuria and hematuria r/o immune complex glomerulonephritis. 6. Probable septic left sternoclavicular joint. 7. Hypertensive right-sided heart failure. 8. Polysubstance abuse. 9. Anemia of chronic disease. PLAN: 1. Continue chlorthalidone, metoprolol 100 mg twice daily, and losartan 50 mg daily. 2. Continue 2g Na diet. 3. Renal function improving slightly. Continue to monitor renal function and urine output daily. 4. Ordered Aranesp 60 mcg IV x 1 and Venofer 100 mg IV x1 for anemia. 4. Cryoglobulin pending. Renal biopsy in remote future once infection has resolved. . GI Prophylaxis: Not indicated VTE Prophylaxis: Sub-Q Heparin (Unfractionated) VTE Mechanical Devices: Intermittant Pneumatic CD Resuscitation Status: CPR: Attempt Resuscitation Heather Mezt DO Aug 04, 2016 08:40 Heather Metz DO Aug 04, 2016 08:40
[2016-08-04] MEDS: Ondansetron 2 mg/mL 2 mL Inj IVPUSH PRN (09:28)
[2016-08-04 09:40] LABS: ERYTHROCYTE SEDIMENTATION RATE > 140 mm/hr (0-32)
[2016-08-04] MEDS ORDERED: Darbepoetin Alfa 60 mCg/0.3 mL Inj IV ONE (09:45)
[2016-08-04] MEDS ORDERED: Iron Sucrose Inj 100 MG in 0.9% Sodium Chloride 100 ML IV ONE (09:45)
--- NOTE | 2016-08-04 11:19 | DRSVH ---
PROCEDURE: US RENAL SONOGRAM INDICATIONS: jose guadalupe TECHNIQUE: Real-time scanning was performed of the kidneys and bladder, with image documentation. COMPARISON: None. FINDINGS: Kidneys: Kidneys are normal in size. Right kidney measures 14.1 cm long; left kidney measures 12.6 cm long. Right renal cortical thickness is 1.5 cm; left renal cortical thickness is 2.0 cm. Renal c ortical echotexture is slightly increased bilaterally. No hydronephrosis or nephrolithiasis. No betty picious solid mass lesions. Bladder: Urinary bladder decompressed. Miscellaneous: No free pelvic fluid. IMPRESSION: Increased renal cortical echogenicity suggesting mild medical renal disease. Dictated by: Delon LEYVA Interpreted: Angy Chang MD on 08/04/2016 at 11:19 Transcribed by: CARITO on 08/04/2016 at 11:19 Approved by: Angy Chang M.D. on 08/04/2016 at 11:46
--- NOTE | 2016-08-04 11:41 | PROG NOTE ---
[address] [address] PROGRESS NOTE PATIENT: RAJANI ALSTON : 1990 MR#: [id number] ADMIT: 07/15/2016 JOB ID: [id number] DATE: 08/04/2016 INFECTIOUS DISEASE FOLLOWUP NOTE: REASON FOR FOLLOWUP: Tricuspid endocarditis due to MSSA, with septic pulmonary emboli, septic left sternoclavicular joint, infected left shoulder, glomerulonephritis and right-sided heart failure. INTERVAL HISTORY: In the past 24 hours I have discussed this case extensively with Dr. Amilcar Laird of neurology, as well as Dr. Ruth of the hospital service. The patient reports this morning no fevers, chills, or sweats. She notes her breathing is better and she no longer has much pleuritic chest pain or cough. She has full range of motion of her left shoulder now, and she said it is basically back to the point where she thinks it started off before any of this infection in and about the left shoulder joint. Even as her left shoulder improves, now she notices that her left sternoclavicular joint is becoming more prominent, painful and, at times, warm. This is now her greatest concern. She notes that her lower extremities are much less edematous, and she is able to wear "skinny jeans." PHYSICAL EXAMINATION: Reveals an afebrile woman who is sitting up, well dressed and looking quite comfortable. She is afebrile at 37.3, pulse 109, respiratory rate 18, blood pressure 132/88, saturating well on room air. Eyes without conjunctival hemorrhage. Oral cavity negative. Lungs with some crackles at the bases as before. Cardiac tones: No murmur. The left sternoclavicular joint is increasingly prominent, and this is very worrisome. It is not erythematous but it is tender to touch, and a bit warm. The left shoulder now has full range of motion, both active and passive, and I would conclude that part of her infection has resolved. Abdomen: Negative. Lower extremity edema much improved. LABORATORY STUDIES: White blood count down to 10,000, platelet count 600,000. Sed rate greater than 140. Creatinine 1.5, which is up a bit over the last couple of days. LFT normal. Procalcitonin 0. Cryoglobulins are pending. The ANCA screen has come back negative, HELEN screen negative, and these tests, of course, were ordered by the radiation protection specialist. The followup blood cultures we got on the because of a fever spike at that time remain negative. IMAGING: Imaging in the past couple of days includes the CT of the chest. This shows resolving pulmonary emboli with bilateral pleural effusions and atelectasis. IMPRESSION: I am more optimistic today about this patient's outlook than I have been over the past week or two but remain increasingly concerned about her left sternoclavicular joint. It appears that we have her bacteremia under control and, therefore, probably her endocarditis. The MRI scan of the brain showed what appeared to be posterior reversible encephalopathy syndrome but also some possible septic emboli, which I discussed last night with Dr. Laird. We agreed that a transesophageal echocardiogram should be done to look for left-sided endocarditis and concomitant with a right-sided endocarditis, and that has been scheduled. That said, her neurologic status is completely normal and she has no focal deficits or problems with mentation. Her pulmonary infiltrates likewise seem to be improving, as does her right-sided heart failure, and her left shoulder is basically normal now. The main issues that are outstanding are to complete her six weeks of antibiotics and to further evaluate and treat her left sternoclavicular joint. In addition, the patient, of course, does have the renal insufficiency which we believe is on the basis of immune complex glomerulonephritis, and I discussed this as well yesterday with Dr. Monge. RECOMMENDATIONS: 1. Will continue with IV antibiotics to complete a total of six weeks of IV nafcillin. 2. The patient is to have a transesophageal echo today to make sure there is no left-sided vegetations and also to get a better look at her tricuspid vegetation. 3. I would hold off on the renal biopsy for least a week or two, and I have discussed this with Dr. Monge. 4. I think the patient needs to be transferred someplace where definitive management of the left sternoclavicular joint can be attempted. This should be some place with either CT Surgery, Plastic Surgery or both. A transfer should probably happen sooner rather than later, as it seems like her sternoclavicular joint is getting worse even as everything else improves.
[2016-08-04] MEDS ORDERED: Lactated Ringer's 1,000 ML IV ONE (12:22)
--- NOTE | 2016-08-04 12:35 | PCM.HPANE ---
Patient Data Surgeon Admitting Provider:Ese Amanda MD Attending Provider:Ese Amanda MD Primary Care Physician:Taco Flores MD Other Provider: Reason for Visit Pneumonia, Ivda, Sepsis PNEUMONIA, IVDA, SEPSIS Ht/WT & BMI Height (Feet): 5 Height (Inches): 2.00 Weight (Kilograms): 61.400 Body Mass Index 24.18, 24.18 Allergies Coded Allergies: sulfamethoxazole (Verified Allergy, Intermediate, 07/16/16) serum sickness with arthritis trimethoprim (Verified Allergy, Intermediate, 07/16/16) serum sickness with arthritis Diabetes History Hx Diabetes?: No MRSA MRSA: No (Pt. not able to answer all question due to medical issues. Taken from ER ad) Medications Active Scripts Gabapentin (Neurontin)300 Mg [id number] Mg PO TID #90 CAPSULE Ref 0 Prov:Nia Sgaastume MD 03/09/16 Reported Medications hydrOXYzine Hcl (HydrOXYzine Hcl)25 Mg [id number] Mg PO HS 07/16/16 hydrOXYzine Hcl (HydrOXYzine Hcl)25 Mg [id number] Mg PO BID 1 tablet in the morning and at noon 07/16/16 Clonidine 0.3 Mg Tablet1-2 Tab PO TID PRN For Anxiety 07/16/16 Ondansetron 4 Mg Tablet4 Mg PO TID PRN For Nausea 07/16/16 Lamotrigine 200 Mg [id number] Mg PO BID 07/16/16 Ropinirole 1 Mg Tablet1 Mg PO HS Ref 0 10/15/15 History History of ENT Problems?: No Other HEENT Pertinent History: Pt. not able to answer all question due to medical issues. Taken from ER admit. Hx of Heart Problems?: No Cardiovascular History: Denies:: Congestive Heart Failure Hypertension Other Cardiac History: Pt. not able to answer all question due to medical issues. Taken from ER admit. Hx of Respiratory Problem?: No Respiratory History: Denies:: Dyspnea Tuberculosis Other Resp Pertinent History: Pt. not able to answer all question due to medical issues. Taken from ER admit. Hx Neurologic Problems?: Yes Neurological History: Positive for:: Seizures ([facility] HEL[facility] reported "pt. noncompliant with seizure meds".) Other Neurological Pertinent: Pt. not able to answer all question due to medical issues. Taken from ER admit. Hx of GI Problems?: No Other GI Pertinent History: Pt. not able to answer all question due to medical issues. Taken from ER admit. Hx of Problems?: Yes Genitourinary History: Positive for:: Urinary Tract Infection Denies:: Kidney Stones Other Pertinent History: Pt. not able to answer all question due to medical issues. Taken from ER admit. Female Hx: Denies:: Currently (Pt. not able to answer all question due to medical issues. Taken from ER ad) Other Skin Pertinent History: Pt. not able to answer all question due to medical issues. Taken from ER admit. Hx Musculoskeletal Problems?: No Hx of Psycho/Social Problems?: No Other Psych Pertinent History: Pt. not able to answer all question due to medical issues. Taken from ER admit. Hx Surgeries?: No Hx Any Other Health Problems?: No Other History: Positive for:: Hospitalization (UTI per report from [facility]EFITTER HELPER.) History Blood Transfusions: Positive for:: Accept Blood Products? Denies:: Blood Transfuse Reaction Blood Transfusions Hx Diabetes: No Other Pertinent History: Pt. not able to answer all question due to medical issues. Taken from ER admit. Occupation: Unemployed Hx Substance Use: Yes (Herion, Meth, and Marijuana per ER report.) Smoking Status: Current Every Day Smoker Stop/Bang Treated for Sleep Apnea?: No (Pt. not able to answer all question due to medical issues. Taken from ER ad) Do You Have a CPAP Machine?: No (Pt. not able to answer all question due to medical issues. Taken from ER ad) S-Snoring: Do You Snore Loudly: No T-Tired: feel tired, fatigued: No O-Obsered: Observed not breath: No B- Body Mass Index > 35 kg/m2: No N- Neck Large Circumference: No G- Gender Male: No TAMERA Risk Assessment: Low Risk, <3 Yes TAMERA Category 1: Yes Risk Assessment Category Category 1A: Patient has history of documented sleep apnea, and HAS NOT received any narcotic, sedative or anesthesia administration during this stay. Category 1B: Patient has history of documented sleep apnea, and HAS received any narcotic , sedative or anesthesia administration during this stay Category 2: Patient has SUSPECTED Obstructive Sleep Apnea, and HAS received any narcotic , sedative or anesthesia administration during this stay. Category 3: Patient has SUSPECTED Obstructive Sleep Apnea and HAS NOT received narcotic, sedative or anesthesia administration during this stay. Category 4: Outpatient in Procedural Areas with known sleep apnea or who screen positive for High Risk via the STOP/BANG questionnaire. Exam Exam Vital Signs Vital Signs Date Time Temp Pulse Resp B/P Pulse Ox O2 Delivery O2 Flow Rate FiO2 08/04/16 09:34 109 08/04/16 08:09 37.3 107 18 132/88 95 Room Air 08/04/16 05:34 36.9 101 16 127/89 96 Room Air 08/04/16 05:25 Supplement Oxygen General Appearance: Alert HEENT/AIRWAY: MP 1 Lungs: Clear to Auscultation Heart: Exam Unremarkable Meds/Labs/Diagnostics Admission Meds Current Medications Oxycodone HCl (Roxicodone IR) 5 mg Q4H PO Last administered on 08/04/16t 08:20 ; Start 08/04/16 at 08:30; Stop 08/05/16 at 08:30 Labs Test 07/15/16 19:57 07/15/16 20:00 07/16/16 12:15 07/16/16 16:52 D-Dimer 11.5mg/L (<0.50) Urine HCG, Qualitative Negative (Negative) Chlamydia trachomatis DNA (NASRIN) Negative (Negative) Urine Legionella pneumophilia Ag Negative (Negative) Neisseria gonorrhoeae DNA (NASRIN) Negative (Negative) Fibrinogen 237mg/dL (157-380) Lactic Acid Level 0.8mmol/L (0.4-2.0) Test 07/17/16 04:45 07/18/16 19:30 07/20/16 11:30 07/21/16 08:00 Hepatitis C Antibody 0.1s/co ratio (0.0-0.9) HIV (1&2) Ag and Ab, 4th Generation Non reactive (Non Reactive) Vancomycin Level Trough 19.0mcg/mL Hold Urine Received (Received) Haptoglobin 165mg/dL (34-200) Iron Level 13ug/dL (35-150) Total Iron Binding Capacity 106ug/dL (250-450) Percent Iron Saturation 12%sat (15-50) Unsaturated Iron Binding 93.0ug/dL Lactate Dehydrogenase 199U/L (100-190) Vitamin B12 Level 1359pg/mL (211-946) Folate 7.6ng/mL (>3.0) Test 07/26/16 15:02 07/28/16 09:45 07/30/16 05:42 07/31/16 05:20 Urine Color Yellow (YELLOW) Urine Appearance Hazy (CLEAR,HAZY) Urine pH 6.0 (5.0-8.0) Urine Specific [place] 1.020 (1.003-1.035) Urine Protein 100mg/dL (NEG,TRACE) Urine Glucose (UA) Negativemg/dL (NEGATIVE) Urine Ketones Negativemg/dL (NEGATIVE) Urine Occult Blood Large (NEGATIVE) Urine Nitrite Negative (NEGATIVE) Urine Bilirubin Negative (NEGATIVE) Urine Urobilinogen Normalmg/dL (NORMAL) Urine Leukocyte Esterase Trace (NEGATIVE) Urine RBC >50/hpf (0-2) Urine WBC 6-10/hpf (0-5) Urine Epithelial Cells Occasional/hpf (NONE-MOD) Urine Crystals None seen (NONE SEEN) Urine Bacteria Few/hpf (NONE-FEW) Urine Hyaline Casts None/lpf (NONE) Urine Granular Casts Occasional (NONE SEEN) Urine Waxy Casts None seen (NONE SEEN) Urine Red Blood Cell Casts None seen (NONE SEEN) Urine White Blood Cell Casts None seen (NONE SEEN) Urine Mucus Present (None Seen) Urine Trichomonas None seen (NONE SEEN) Urine Yeast None (NONE SEEN) Urinalysis Comment None Urine Culture Reflexed Indicated Urine Random Creatinine 103mg/dL (16-392) Urine Random Total Protein 275mg/dL (0-15) Urine Random Sodium 64mEq/L Lipase 19U/L (13-60) Hold Purple Top Tube Received (Received) Myeloperoxidase <9.0U/mL (0.0-9.0) Hold [place] Top Tube Received (Received) Cytoplasmic ANCA (c-ANCA) Antibody <1:20titer (Neg:<1:20) Proteinase 3 (PR3) Antibodies <3.5U/mL (0.0-3.5) Atypical p-ANCA <1:20titer (Neg:<1:20) Perinuclear ANCA (p-ANCA) Antibody <1:20titer (Neg:<1:20) Ferritin 467ng/mL (13-150) Pro-B-Type Natriuretic Peptide 11627ba/mL (0-130) Anti-Nuclear Antibody Screen Negative (Negative) Hepatitis B Surface Antigen Negative (Negative) Test 08/03/16 08:45 08/04/16 05:54 Hold [place] Top Tube Received (Received) Complement C3 158mg/dL (82-167) Complement C4 22mg/dL (14-44) White Blood Count 10.3th/mm3 (3.8-10.1) Red Blood Count 3.14mil/mm3 (3.90-5.20) Hemoglobin 8.6g/dL (12.0-15.6) Hematocrit 28.0% (35.0-46.0) Mean Corpuscular Volume 89.2fL (81-100) Mean Corpuscular Hemoglobin 27.4pg (27.0-35.0) Mean Corpuscular Hemoglobin Concent 30.7% (32.0-37.0) Red Cell Distribution Width 15.3% (12.3-15.4) Platelet Count 601bil/L (150-400) Neutrophils (%) (Auto) 48.7% (40-74) Lymphocytes (%) (Auto) 39.0% (14-46) Monocytes (%) (Auto) 8.5% (4-12) Eosinophils (%) (Auto) 3.0% (0-5) Basophils (%) (Auto) 0.4% (0-3) Erythrocyte Sedimentation Rate > 140mm/hr (0-32) Sodium Level 139mEq/L (134-144) Potassium Level 4.3mEq/L (3.5-5.2) Chloride Level 100mEq/L (97-108) Carbon Dioxide Level 28mmol/L (18-29) Blood Urea Nitrogen 28mg/dL (6-20) Creatinine 1.50mg/dL (0.57-1.00) Estimat Glomerular Filtration Rate 62mL/min (>59) Glucose Level 110mg/dL (60-99) Calcium Level 8.6mg/dL (8.5-10.1) Magnesium Level 2.2mg/dL (1.6-2.6) Total Bilirubin 0.2mg/dL (0.0-1.2) Aspartate Amino Transf (AST/SGOT) 8U/L (0-50) Alanine Aminotransferase (ALT/SGPT) 5U/L (0-32) Alkaline Phosphatase 51U/L (25-150) C-Reactive Protein 5.4mg/dL (0.0-0.5) Total Protein 7.4g/dL (6.4-8.4) Albumin 2.7g/dL (3.4-5.0) Procalcitonin < 0.05ng/mL (See Comment) Plan Impression Patient chart reviewed, patient interviewed and anesthestic plan with risks, benefits, and alternatives discussed, and informed consent obtained. ASA Physical Status: ASA3 Severe Disease Anesthetic Plan: MAC Bene/Risks/Altern/Consents: Yes HP Complete Prior to Induction: Yes Fabricio Cerda MD Aug 04, 2016 12:35
[2016-08-04] MEDS ORDERED: Ketamine 100 mg/mL 5 mL Inj ONE (12:44)
--- NOTE | 2016-08-04 13:26 | PCM.ANEP2 ---
Post Anesthesia Evaluation ASA/CMS Post Anesthesia VS in Patient's Normal Range?: Yes Resp Stable; Airway Patent?: Yes CV Function & Hydration Stable: Yes Mental Status Recovered?: Yes Pain control Satisfactory?: Yes N/V Control Satisfactory?: Yes Fabricio Cerda MD Aug 04, 2016 13:26
--- NOTE | 2016-08-04 13:26 | PCM.ANEP1 ---
Post Anesthesia Phase 1 PACU Phase 1 Assessment Date of Service: Jul 28, 2016 Vital Signs Vital Signs Date Time Temp Pulse Resp B/P Pulse Ox O2 Delivery O2 Flow Rate FiO2 08/04/16 09:34 109 08/04/16 08:09 37.3 107 18 132/88 95 Room Air 08/04/16 05:34 36.9 101 16 127/89 96 Room Air 08/04/16 05:25 Supplement Oxygen POST vitals: bp 117/79 p 91 rr20 sat 98% awake and doing well. Level of Alertness: Awake, talking Pain: Yes Pain Scale Score: 7 Nausea or Vomiting: No Oxygen Delivery: Nasal Cannula Lungs: Clear to Auscultation Dermatome Level: Full Sensation Fabricio Cerda MD Aug 04, 2016 13:26
--- NOTE | 2016-08-04 13:30 | NUR ---
JOÃO She left [facility] to go to [facility] to get a JOÃO performed about 1213. Textile Broker notified. She was anxious about "freaking out" while having a tube stuck down her throat. Conscious sedation was provided for her while there. She returned about 1330. Care continues.
--- NOTE | 2016-08-04 13:58 | NUR ---
Social Work Continued Discharge Planning: SW spoke to [facility] rep Grant, who was updated on plan. Per Juanita patient accepted and auth obtained. Auth will need to be restarted upon discharge per rep Juanita. Per report in rounds, possible debridement. No other anticipated discharge needs identified at this time. SW to follow. PLAN: Accepted at [facility]. Auth obtained and auth will need to be restarted when discharge date determined. SW to follow. Cheikh CURRAN
[2016-08-05] VITALS (10 sets, daily range): BP systolic 112–145; BP diastolic 80–94; PULSE 81–111; RESP 16–18; O2SAT 96–98
[2016-08-05] MEDS: Heparin 5,000 Unit/mL Inj SUBQ SCH ×4 (00:48→23:36)
--- NOTE | 2016-08-05 06:24 | NUR ---
NSR/Blood Pressure Stable. Pt stable throughout the night in a NSR with HR in the 80s-90s. Pain remains to the left upper chest/clavicle region despite medication; some redness with minimal swelling noted. Pt requiring no further intervention. Blood pressures have remained WNL. Pt slept well on the couch. Will cont. to monitor.
[2016-08-05 06:25] LABS: BASOPHILS % (AUTO) 0.6 % (0-3); MONOCYTES % (AUTO) 8.7 % (4-12); Mean Corpuscular Hemoglobin 27.7 pg (27.0-35.0); Mean Corpuscular Volume 89.4 fL (81-100); NEUTROPHILS % (AUTO) 47.9 % (40-74); Platelet Count 543 bil/L (150-400)
--- NOTE | 2016-08-05 08:46 | PCM.PNMED ---
Subjective Date of Service Aug 05, 2016 Subjective Nephrology Progress Note: Attending Dr. Saleem Colon Paul is a 25-year-old female with past medical history significant for IV heroin and methamphetamine abuse who presented to [facility] ED with shortness of breath and chest pain. 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 Hospital day #22. Overnight: There were no acute events. Telemetry over night: Sinus rhythm, heart rate 80 to 90's, without ectopy. The patient is resting in bed side chair comfortably and in no acute distress. The patient endorses right-sided rib cage pain and sternoclavicular abscess pain with warmth. She denies headache, chest pain, palpitations, shortness of breath, abdominal pain, nausea, vomiting, fever, chills, dysuria, diarrhea or constipation. She is voiding without difficulty. . Exam Vital Signs Vital Sign - Last Date Time Temp Pulse Resp B/P Pulse Ox O2 Delivery O2 Flow Rate FiO2 08/05/16 05:57 98 08/05/16 05:44 36.4 16 112/80 97 Room Air 07/30/16 14:56 07/30/16 05:10 2.00 Intake and Output 08/04/16 08/04/16 08/05/16 Cumulative From/Thru 15:00 23:00 07:00 07/15/16 18:29 - 08/05/16 05:44 Intake Total 1335 ml 1723 ml 18147 ml Output Total 650 ml 1050 ml 99677 ml Balance 685 ml 673 ml 74993 ml Intake Oral 1236 ml 1220 ml 31967 ml IV Total 99 ml 503 ml 91360 ml Packed Cells 965 ml Output Urine Total 650 ml 1050 ml 45292 ml # Voids 15 # Bowel Movements 0 0 8 Exam General: Chronically ill-appearing young woman, in no acute distress. HEENT: Normocephalic, atraumatic. External ears without defect. Pupils equal, round, and reactive to light and accommodation. Neck: Supple with full range of motion. Cardiovascular: Tachycardic with regular rhythm and no murmurs, rubs, or gallops appreciated. Pulmonary: Lungs with crackles at bilateral bases. Normal respiratory effort with no use of accessory muscles. Abdomen: Soft, nontender, nondistended, bowel sounds present. No hepatosplenomegaly or masses appreciated. Extremities: Left sternoclavicular joint increasingly swollen and tender to palpation with no erythema. No clubbing, cyanosis, or edema. Neurological: Cranial nerves grossly intact. IVs and Medications Medications Reviewed: Medications were reviewed in detail Lab and Diagnostics Item Value Date Time Calcium Level 8.8 mg/dL 08/05/16 0540 Total Bilirubin 0.2 mg/dL 08/05/16 0540 Aspartate Amino Transf (AST/SGOT) 10 U/L 08/05/16 0540 Alanine Aminotransferase (ALT/SGPT) 5 U/L 08/05/16 0540 Alkaline Phosphatase 50 U/L 08/05/16 0540 Total Protein 7.4 g/dL 08/05/16 0540 Albumin 3.0 g/dL L 08/05/16 0540 Item Value Date Time Erythrocyte Sedimentation Rate > 140 mm/hr H 08/04/16 0554 Result Diagram: 08/05/1653908/05/16 0540 Microbiology Blood culture x7 positive for MSSA. Repeat blood cultures show no growth after 24 hours. Respiratory viral PCR negative. Strep pneumoniae and Legionella urine antigen negative. Influenza screen negative. C. difficile DNA amplification negative. Urine culture shows no growth to date. . X-Rays, CTs and MRIs US RENAL SONOGRAM IMPRESSION: Increased renal cortical echogenicity suggesting mild medical renal disease. Dictated by: Delon Pelayo RRA Interpreted: Angy Chang MD on 08/04/2016 at 11: 19 Transcribed by: CARITO on 08/04/2016 at 11:19 Approved by: Angy Chang M.D. on 08/04/2016 at 11:46 MRA ANGIOGRAM HEAD WITHOUT CONTRAST IMPRESSION: 1. No definite high-grade stenosis or occlusion of the central intracranial arteries. Dictated by: Sulaiman Haines M.D. on 08/02/2016 at 19:49 Approved by: Sulaiman Haines M.D. on 08/02/2016 at 19:49 MRI BRAIN WITHOUT CONTRAST IMPRESSION: 1. Bilateral regions of relatively symmetric edema within the cerebellar hemispheres redemonstrated which are nonspecific but are compatible with posterior reversible encephalopathy as clinically queried. No restricted diffusion to suggest infarct. 2. Additional bilateral scattered supratentorial regions of cortical and subcortical edema are also nonspecific. The differential includes encephalitis , possible sequelae of septic emboli, or mass lesions. Recommend further evaluation with contrast-enhanced images when clinically feasible. Dictated by: Sulaiman Haines M.D. on 08/02/2016 at 19:46 Approved by: Sulaiman Haines M.D. on 08/02/2016 at 19:46 CT CHEST WITHOUT CONTRAST IMPRESSION: 1. Resolving septic emboli. 2. Increased bilateral pleural effusions and increased bibasilar pneumonia versus atelectasis. Dictated by: Antonieta Hayward M.D. on 08/03/2016 at 12:06 Approved by: Antonieta Hayward M.D. on 08/03/2016 at 12:06 CT BRAIN WITHOUT CONTRAST IMPRESSION: 1. Bilateral symmetric edema in the cerebellar hemispheres. Given patient's history of headache and hypertension, findings are compatible with hypertensive encephalopathy. The differential for the imaging appearance is bilateral cerebellar infarcts which are less likely given clinical history. 2. No intracranial hemorrhage, midline shift, or hydrocephalus. The findings were reported to the patient's nurse on 07/31/16 at 1:10 AM by [facility] radiology services. Dictated by: Sulaiman Haines M.D. on 07/31/2016 at 8:32 Approved by: Sulaiman Haines M.D. on 07/31/2016 at 8:32 X-RAY CHEST, TWO VIEWS IMPRESSION: Subpulmonic pleural effusions bilaterally right, and there also appears to be left greater than right pneumonia in each lung base. The appearance has worsened sequentially from 07/16/16 through 07/24/16 2 the current study. Dictated by: Jaya Carranza M.D. on 07/29/2016 at 13:05 Approved by: Jaya Carranza M.D. on 07/29/2016 at 13:05 MRI CERVICAL SPINE WITH AND WITHOUT CONTRAST IMPRESSION: 1. No evidence of discitis-osteomyelitis in the cervical spine. 2. No high-grade spinal canal or neuroforaminal narrowing. Dictated by: Sulaiman Haines M.D. on 07/28/2016 at 18:10 Approved by: Sulaiman Haines M.D. on 07/28/2016 at 18:10 MRI LUMBAR SPINE WITH AND WITHOUT CONTRAST IMPRESSION: 1. No evidence of discitis-osteomyelitis in the lumbar spine. 2. No spinal canal or neuroforaminal narrowing. Dictated by: Sulaiman Haines M.D. on 07/28/2016 at 18:38 Approved by: Sulaiman Haines M.D. on 07/28/2016 at 18:38 MRI THORACIC SPINE WITH AND WITHOUT CONTRAST IMPRESSION: 1. No evidence of osteomyelitis or discitis in the thoracic spine. 2. Moderate-sized bilateral pleural effusions. Dictated by: Sulaiman Haines M.D. on 07/28/2016 at 18:04 Approved by: Sulaiman Haines M.D. on 07/28/2016 at 18:04 MRI SHOULDER LEFT WITHOUT CONTRAST IMPRESSION: 1. Markedly limited study due to extensive motion artifact. 2. Small glenohumeral joint effusion, slightly increased in the axillary pouch compared to the prior study. Finding is nonspecific but given history of infection, septic arthritis cannot be excluded. 3. No definite evidence of osteomyelitis. 4. Extensive subcutaneous edema, increased from the prior study, as well as edema tracking between the visualized periarticular musculature suggestive of myositis. This includes prominent edema tracking deep to the deltoid muscle along the lateral aspect of the humeral head as well as along the superficial aspect of the deltoid. 5. No definite abscess identified given limitations of the study. Dictated by: Sulaiman Haines M.D. on 07/22/2016 at 8:36 Approved by: Sulaiman Haines M.D. on 07/22/2016 at 8:36 CT CHEST WITHOUT CONTRAST IMPRESSION: 1. Resolving septic emboli. 2. Increased bilateral pleural effusions and increased bibasilar pneumonia versus atelectasis. Dictated by: Antonieta Hayward M.D. on 08/03/2016 at 12:06 Approved by: Antonieta Hayward M.D. on 08/03/2016 at 12:06 . Cardiac Echo Impressions Echocardiogram Interpretation Summary: The left ventricle is normal in size, wall thickness, and systolic function without any focal wall motion abnormalities. The ejection fraction is estimated to be 55-60%. There is trace mitral regurgitation. No aortic regurgitation is present. Vegetation is once again noted on the tricuspid valve. (1.1 x 1.6 cm) The right ventricular systolic pressure is estimated at 48 mmHg assuming a right atrial pressure of 8 mm Hg. Electronically signed by: Kulwant Urena on Reading Physician:07/29/2016 12:37 PM . Assessment & Plan Darlene Miller is a 25-year-old female with past medical history significant for IV heroin and methamphetamine abuse who presented to [facility] ED with shortness of breath and chest pain. 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 Hospital day #22. 1. 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 2. Fluid overload, suspected right-sided heart failure. Resolving. 3. Hypertensive emergency with encephalopathy. 4. MSSA acute tricuspid valve endocarditis with septic pulmonary emboli. - Currently on the IV nafcillin infusion 12 g over 24 hours x 6 weeks. 5. Subnephrotic-range proteinuria and hematuria r/o immune complex glomerulonephritis. 6. Probable septic left sternoclavicular joint. 7. Hypertensive right-sided heart failure. 8. Polysubstance abuse. 9. Anemia of chronic disease. 10. Posterior reversible encephalopathy. PLAN: 1. Continue chlorthalidone, metoprolol 100 mg twice daily, and losartan 50 mg daily. 2. Continue 2g Na diet. 3. Renal function improving. Continue to monitor renal function and urine output daily. 4. Cryoglobulin pending. Renal ultrasound revealed increased renal cortical echogenicity suggesting mild medical renal disease. Renal biopsy in remote future once infection has resolved. . GI Prophylaxis: Not indicated VTE Prophylaxis: Sub-Q Heparin (Unfractionated) VTE Mechanical Devices: Intermittant Pneumatic CD Resuscitation Status: CPR: Attempt Resuscitation Heather Metz Aug 05, 2016 08:46
[2016-08-05] MEDS: hydrOXYzine Pamoate 25 mg Capsule PO SCH ×2 (09:10→13:18)
[2016-08-05] MEDS: lamoTRIgine 100 mg Tablet PO SCH ×2 (09:11→22:37)
[2016-08-05] MEDS: MeTOProlol XL 50 mg ER24 Tablet PO SCH ×2 (09:11→22:37)
[2016-08-05] MEDS: LORazepam 1 mg Tablet PO PRN ×3 (09:29→23:50)
--- NOTE | 2016-08-05 10:53 | DRSVH ---
[facility] [address] [place] [address] Echocardiogram Report Name: RAJANI ALSTON JStudeliza Mirza e: 08/04/2016 Height: 62 in Hospital Exam Location: [facility] Weight: 135 lb Gender: Female BSA: 1.6 m2 : 1990 Age: 25 yrs Reason For Study: SEPTIC EMBOLI, ABNORMAL BRAIN MRI History: tricuspid valve endocarditis Performed By: Yesenia Rico Referring Physician: BEATRICE MUNROE Interpretation Summary No thrombus is detected in the left atrial appendage. The interatrial septum is intact with no evidence for an atrial septal defect. Injection of contrast documented no interatrial shunt. The mitral valve is normal in structure and function. The aortic valve is normal in structure and function. There is a large vegetation or mass on the tricuspid valve. The vegetation is 2.3 x 0.9 cm. There is severe tricuspid regurgitation. The pulmonic valve is not well seen, but is grossly normal. Procedure: Informed consent for Transesophageal Echocardiogram, and use of a contrast agent as needed, was obtained prior to the procedure. The patient was brought to the [facility] in a fasting state. Sedation was managed by anesthesiologist; see anesthesiology notes for details. A multifrequency, multiplane transesopheageal echocardiographic endoscope was inserted and manipulated in the standard fashion to achieve multiplane views. The transesophageal probe was passed without difficulty. A 2D transesophageal echocardiogram with spectral and color flow Doppler was performed. The patient's vital signs, including blood pressure, heart rate, pulse oximetry and cardiac rhythm were monitored throughout the procedure and remained stable. The patient tolerated the procedure well without evidence of orophangeal or esophageal trauma. Contrast injection with agitated saline was performed. The patient was in normal sinus rhythm during the exam. There were no complications. Left Ventricle: The left ventricular ejection fraction is grossly normal. Atria: No thrombus is detected in the left atrial appendage. The interatrial septum is intact with no evidence for an atrial septal defect. There is no Doppler evidence for an interatrial shunt. Injection of contrast documented no interatrial shunt. Mitral Valve: The mitral valve is normal in structure and function. There is no vegetation seen on the mitral valve. There is trace mitral regurgitation. Aortic Valve: The aortic valve is normal in structure and function. There is no aortic valvular vegetation. There is trace aortic regurgitation. Tricuspid Valve: There is a large vegetation or mass on the tricuspid valve. The vegetation is 2.3 x 0.9 cm. There is severe tricuspid regurgitation. Pulmonic Valve: The pulmonic valve is not well seen, but is grossly normal. There is no vegetation on the pulmonic valve. Great Vessels: A catheter appeared to lie in the superior vena cava. Electronically signed by: Kulwant Urena on Reading Physician:08/05/2016 10:52 AM
--- NOTE | 2016-08-05 12:17 | PROG NOTE ---
[address] [address] PROGRESS NOTE PATIENT: RAJANI ALSTON : 1990 MR#: [id number] ADMIT: 07/15/2016 JOB ID: [id number] DATE: 08/05/2016 INFECTIOUS DISEASE FOLLOWUP NOTE: REASON FOR FOLLOWUP: Multiple complications of right-sided MSSA endocarditis. INTERVAL HISTORY: Today, the patient reports she has "multiple complaints." She is upset that she is not allowed to take a shower without supervision which apparently was previously allowed. She also notes that she has considerable pain in her left sternoclavicular joint which is not getting better. She also requests comprehensive testing for sexually transmitted diseases, as she has been hanging out with a group of people who have "a lot of STDs." She has no fevers, chills, or sweats today. She has no cough or shortness of breath. The pleuritic chest pain she had earlier in her hospital stay has completely resolved. She no longer has lower extremity edema and feels she is getting better everywhere, except her left sternoclavicular joint. PHYSICAL EXAMINATION: Reveals an afebrile woman. Pulse 96, respiratory rate 18, blood pressure 143/92. She is saturating well on room air. In no acute distress. Eyes without conjunctival changes. Oral cavity negative. Lungs with a few crackles at the base but not bad. Cardiac tones: Regular rate and rhythm without murmur. The left shoulder is now completely normal which is a dramatic improvement over the last three weeks. Unfortunately, the left sternoclavicular joint continues to be massively enlarged and very tender. This tenderness extends about a quarter of [address] distally along the clavicle and up onto the sternum. Abdomen: Negative. Peripheral edema resolved. LABORATORIES: Include a white count 7800, completely normal today for the first time in a long time. Platelet count 543,000. Creatinine 1.33, which is a bit improved over 1.5 yesterday. LFT are normal. Albumin 3. The patient's labs were reviewed. She has already had testing for gonorrhea and chlamydia which were negative. Her hep C is negative, and hep B is also negative. I have relayed these facts to the patient. Micro studies include negative followup cultures including those from the , as well as those from the . The culture of the sternoclavicular joint is basically final and negative. IMAGING: The most recent imaging was a renal ultrasound, which shows increased renal cortical echogenicity consistent with mild medical renal disease. IMPRESSION: This is an extraordinarily complicated patient with multiple metastatic foci of infection following her right-sided tricuspid methicillin-sensitive Staphylococcus aureus endocarditis. Yesterday, we obtained a transesophageal echo, which I failed to mention above. I discussed this with the machine shorthand teacher who performed the study, and he told me there were no lesions whatsoever on the left side of the heart, nor was there a patent foramen ovale. It would appear that all the patient's problems have arisen from this tricuspid endocarditis secondary to intravenous drug use including infections in and around the left shoulder which are resolved, worsening left sternoclavicular septic joint, septic pulmonary emboli which are improved, severe right-sided heart failure which is improved and anasarca which has improved considerably. At this point, the patient is about senior living into her six weeks of IV nafcillin for this methicillin-sensitive Staphylococcus aureus endocarditis and associated metastatic infections. The main concern at this point, from my point of view, is her left sternoclavicular joint. This is getting worse rather than better as everything else improves, and I think that this will require surgical intervention. RECOMMENDATIONS: 1. Will continue with the IV nafcillin. 2. I would strongly consider transfer of this patient to another center where CT and/or Plastic Surgery is available to evaluate that sternoclavicular joint. 3. Infectious Disease will continue to follow this very complex patient with you. Given her history of ongoing IV drug use, she is certainly not a candidate for home IV antibiotics at any point.
--- NOTE | 2016-08-05 16:26 | PCM.PNMED ---
Subjective Date of Service Aug 05, 2016 Subjective Patient has no new complaints. She did have JOÃO which showed no surprising results. Continually stay have a pain over her left sternoclavicular joint and will need transfer in the near future for further evaluation and management of this. Exam Vital Signs Vital Sign - Last Date Time Temp Pulse Resp B/P Pulse Ox O2 Delivery O2 Flow Rate FiO2 08/05/16 13:15 36.9 94 16 140/94 97 Room Air 07/30/16 14:56 07/30/16 05:10 2.00 Intake and Output 08/04/16 08/04/16 08/05/16 Cumulative From/Thru 15:00 23:00 07:00 07/15/16 18:29 - 08/05/16 05:44 Intake Total 1335 ml 1723 ml 56304 ml Output Total 650 ml 1050 ml 97430 ml Balance 685 ml 673 ml 09154 ml Intake Oral 1236 ml 1220 ml 91831 ml IV Total 99 ml 503 ml 80191 ml Packed Cells 965 ml Output Urine Total 650 ml 1050 ml 41873 ml # Voids 15 # Bowel Movements 0 0 8 Exam Constitutional: Young female in no acute distress Head: Normocephalic atraumatic Chest: Clear to auscultation Cor: Regular rate and rhythm S1-S2 without murmur Abdomen: Soft nontender bowel sounds present Extremities exam: No pedal edema examination of her left sternocleidomastoid reveals some inflammation and mild erythema there and tenderness palpation Neuro: Alert and oriented 3, motor strength is intact bilaterally Lab and Diagnostics Result Diagram: 08/05/16 0540 08/05/16 0540 Microbiology Blood culture x7 positive for MSSA. Repeat blood cultures show no growth after 24 hours. Respiratory viral PCR negative. Strep pneumoniae and Legionella urine antigen negative. Influenza screen negative. C. difficile DNA amplification negative. Urine culture shows no growth to date. . X-Rays, CTs and MRIs US RENAL SONOGRAM IMPRESSION: Increased renal cortical echogenicity suggesting mild medical renal disease. Dictated by: Delon COBIANA Interpreted: Angy Chang MD on 08/04/2016 at 11: 19 Transcribed by: CARITO on 08/04/2016 at 11:19 Approved by: Angy Chang M.D. on 08/04/2016 at 11:46 MRA ANGIOGRAM HEAD WITHOUT CONTRAST IMPRESSION: 1. No definite high-grade stenosis or occlusion of the central intracranial arteries. Dictated by: Sulaiman Haines M.D. on 08/02/2016 at 19:49 Approved by: Sulaiman Haines M.D. on 08/02/2016 at 19:49 MRI BRAIN WITHOUT CONTRAST IMPRESSION: 1. Bilateral regions of relatively symmetric edema within the cerebellar hemispheres redemonstrated which are nonspecific but are compatible with posterior reversible encephalopathy as clinically queried. No restricted diffusion to suggest infarct. 2. Additional bilateral scattered supratentorial regions of cortical and subcortical edema are also nonspecific. The differential includes encephalitis , possible sequelae of septic emboli, or mass lesions. Recommend further evaluation with contrast-enhanced images when clinically feasible. Dictated by: Sulaiman Haines M.D. on 08/02/2016 at 19:46 Approved by: Sulaiman Haines M.D. on 08/02/2016 at 19:46 CT CHEST WITHOUT CONTRAST IMPRESSION: 1. Resolving septic emboli. 2. Increased bilateral pleural effusions and increased bibasilar pneumonia versus atelectasis. Dictated by: Antonieta Hayward M.D. on 08/03/2016 at 12:06 Approved by: Antonieta Hayward M.D. on 08/03/2016 at 12:06 CT BRAIN WITHOUT CONTRAST IMPRESSION: 1. Bilateral symmetric edema in the cerebellar hemispheres. Given patient's history of headache and hypertension, findings are compatible with hypertensive encephalopathy. The differential for the imaging appearance is bilateral cerebellar infarcts which are less likely given clinical history. 2. No intracranial hemorrhage, midline shift, or hydrocephalus. The findings were reported to the patient's nurse on 07/31/16 at 1:[address] [facility] radiology services. Dictated by: Sulaiman Haines M.D. on 07/31/2016 at 8:32 Approved by: Sulaiman Haines M.D. on 07/31/2016 at 8:32 X-RAY CHEST, TWO VIEWS IMPRESSION: Subpulmonic pleural effusions bilaterally right, and there also appears to be left greater than right pneumonia in each lung base. The appearance has worsened sequentially from 07/16/16 through 07/24/16 2 the current study. Dictated by: Jaya Carranza M.D. on 07/29/2016 at 13:05 Approved by: Jaya Carranza M.D. on 07/29/2016 at 13:05 MRI CERVICAL SPINE WITH AND WITHOUT CONTRAST IMPRESSION: 1. No evidence of discitis-osteomyelitis in the cervical spine. 2. No high-grade spinal canal or neuroforaminal narrowing. Dictated by: Sulaiman Haines M.D. on 07/28/2016 at 18:10 Approved by: Sulaiman Haines M.D. on 07/28/2016 at 18:10 MRI LUMBAR SPINE WITH AND WITHOUT CONTRAST IMPRESSION: 1. No evidence of discitis-osteomyelitis in the lumbar spine. 2. No spinal canal or neuroforaminal narrowing. Dictated by: Sulaiman Haines M.D. on 07/28/2016 at 18:38 Approved by: Sulaiman Haines M.D. on 07/28/2016 at 18:38 MRI THORACIC SPINE WITH AND WITHOUT CONTRAST IMPRESSION: 1. No evidence of osteomyelitis or discitis in the thoracic spine. 2. Moderate-sized bilateral pleural effusions. Dictated by: Sulaiman Haines M.D. on 07/28/2016 at 18:04 Approved by: Sulaiman Haines M.D. on 07/28/2016 at 18:04 MRI SHOULDER LEFT WITHOUT CONTRAST IMPRESSION: 1. Markedly limited study due to extensive motion artifact. 2. Small glenohumeral joint effusion, slightly increased in the axillary pouch compared to the prior study. Finding is nonspecific but given history of infection, septic arthritis cannot be excluded. 3. No definite evidence of osteomyelitis. 4. Extensive subcutaneous edema, increased from the prior study, as well as edema tracking between the visualized periarticular musculature suggestive of myositis. This includes prominent edema tracking deep to the deltoid muscle along the lateral aspect of the humeral head as well as along the superficial aspect of the deltoid. 5. No definite abscess identified given limitations of the study. Dictated by: Sulaiman Haines M.D. on 07/22/2016 at 8:36 Approved by: Sulaiman Haines M.D. on 07/22/2016 at 8:36 CT CHEST WITHOUT CONTRAST IMPRESSION: 1. Resolving septic emboli. 2. Increased bilateral pleural effusions and increased bibasilar pneumonia versus atelectasis. Dictated by: Antonieta Hayward M.D. on 08/03/2016 at 12:06 Approved by: Antonieta Hayward M.D. on 08/03/2016 at 12:06 . Cardiac Echo Impressions Echocardiogram Interpretation Summary: The left ventricle is normal in size, wall thickness, and systolic function without any focal wall motion abnormalities. The ejection fraction is estimated to be 55-60%. There is trace mitral regurgitation. No aortic regurgitation is present. Vegetation is once again noted on the tricuspid valve. (1.1 x 1.6 cm) The right ventricular systolic pressure is estimated at 48 mmHg assuming a right atrial pressure of 8 mm Hg. Electronically signed by: Kulwant Urena on Reading Physician:07/29/2016 12:37 PM Echocardiogram Report Name: DARLENE MILLER JStudy Mirza e: 08/04/2016 Height: 62 in Hospital Exam Location: [facility] Weight: 135 lb Gender: Female BSA: 1.6 m2 : 1990 Age: 25 yrs Reason For Study: SEPTIC EMBOLI, ABNORMAL BRAIN MRI History: tricuspid valve endocarditis Performed By: Yesenia Rico Referring Physician: BEATRICE MUNROE Interpretation Summary No thrombus is detected in the left atrial appendage. The interatrial septum is intact with no evidence for an atrial septal defect. Injection of contrast documented no interatrial shunt. The mitral valve is normal in structure and function. The aortic valve is normal in structure and function. There is a large vegetation or mass on the tricuspid valve. The vegetation is 2.3 x 0.9 cm. There is severe tricuspid regurgitation. The pulmonic valve is not well seen, but is grossly normal. Procedure: Informed consent for Transesophageal Echocardiogram, and use of a contrast agent as needed, was obtained prior to the procedure. The patient was brought to the [facility] in a fasting state. Sedation was managed by anesthesiologist; see anesthesiology notes for details. A multifrequency, multiplane transesopheageal echocardiographic endoscope was inserted and manipulated in the standard fashion to achieve multiplane views. The transesophageal probe was passed without difficulty. A 2D transesophageal echocardiogram with spectral and color flow Doppler was performed. The patient's vital signs, including blood pressure, heart rate, pulse oximetry and cardiac rhythm were monitored throughout the procedure and remained stable. The patient tolerated the procedure well without evidence of orophangeal or esophageal trauma. Contrast injection with agitated saline was performed. The patient was in normal sinus rhythm during the exam. There were no complications. Left Ventricle: The left ventricular ejection fraction is grossly normal. Atria: No thrombus is detected in the left atrial appendage. The interatrial septum is intact with no evidence for an atrial septal defect. There is no Doppler evidence for an interatrial shunt. Injection of contrast documented no interatrial shunt. Mitral Valve: The mitral valve is normal in structure and function. There is no vegetation seen on the mitral valve. There is trace mitral regurgitation. Aortic Valve: The aortic valve is normal in structure and function. There is no aortic valvular vegetation. There is trace aortic regurgitation. Tricuspid Valve: There is a large vegetation or mass on the tricuspid valve. The vegetation is 2.3 x 0.9 cm. There is severe tricuspid regurgitation. Pulmonic Valve: The pulmonic valve is not well seen, but is grossly normal. There is no vegetation on the pulmonic valve. Great Vessels: A catheter appeared to lie in the superior vena cava. Electronically signed by: Kulwant Urena on Reading Physician:08/05/2016 10:52 AM . Assessment & Plan Darlene Miller is a 25-year-old female with past medical history significant for IV heroin and methamphetamine abuse who presented to [facility] ED with shortness of breath and chest pain. 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 Hospital day #22. 1. 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 2. Fluid overload, suspected right-sided heart failure. Resolving. 3. Hypertensive emergency with encephalopathy. 4. MSSA acute tricuspid valve endocarditis with septic pulmonary emboli. - Currently on the IV nafcillin infusion 12 g over 24 hours x 6 weeks. 5. Subnephrotic-range proteinuria and hematuria r/o immune complex glomerulonephritis. 6. Probable septic left sternoclavicular joint. I did contact [facility]Loc[facility] left a message and they did get back to me and recommended trying tomorrow to see if any beds are available. 7. Hypertensive right-sided heart failure. 8. Polysubstance abuse. 9. Anemia of chronic disease. 10. Posterior reversible encephalopathy. PLAN: 1. Continue chlorthalidone, metoprolol 100 mg twice daily, and losartan 50 mg daily. 2. Continue 2g Na diet. 3. Renal function improving. Continue to monitor renal function and urine output daily. 4. Cryoglobulin pending. Renal ultrasound revealed increased renal cortical echogenicity suggesting mild medical renal disease. Renal biopsy in remote future once infection has resolved. . GI Prophylaxis: Not indicated VTE Prophylaxis: Sub-Q Heparin (Unfractionated) VTE Mechanical Devices: Intermittant Pneumatic CD Resuscitation Status: CPR: Attempt Resuscitation Time spent 30 minutes Ese Amanda MD Aug 05, 2016 16:26
--- NOTE | 2016-08-05 18:01 | NUR ---
ACTIVITY Oxicodone 5 mg PO has been effective for pain control. She complains of pain on her L clavicular area. Rating at as 9/10. After her pain medication patients pain level via FELDT scale is between 0-2/10. Tolerating liquids PO and her diet well. Denies nausea. No emesis noted. Denies SOB. Patient has been ambulating independently in the room and in the hallway. Tolerating activity well. Patient continues to be on tele. Per telecom manager patient is on sinus rhythm/sinus tach; HR-90-100's. Transfer is still pending. (Pls. refer to MD's notes). Voiding without any problems.
[2016-08-05] MEDS: NAFCILLIN IV SCH (21:30)
[2016-08-05] MEDS: DEXTROSE 5% IV SCH (21:30)
[2016-08-06 00:30] VITALS: BP 130/94; PULSE 107; RESP 17; O2SAT 99
[2016-08-06 05:47] VITALS: PULSE 90
[2016-08-06 05:48] VITALS: BP 123/86; PULSE 92; RESP 16; O2SAT 97
--- NOTE | 2016-08-06 06:18 | NUR ---
Pain/Visitors Pt reports L shoulder pain at a constant 7/10, Oxycodone given x2 without any pain relief but pt states it helps her not to get into withdrawals. Pt had several visitors in the evening and staff tried to keep a close eye on pt during these visits.
[2016-08-06 06:20] LABS: BASOPHILS % (AUTO) 0.1 % (0-3); EOSINOPHILS % (AUTO) 2.6 % (0-5); MONOCYTES % (AUTO) 9.4 % (4-12); Mean Corpuscular Hemoglobin 27.6 pg (27.0-35.0); Mean Corpuscular Volume 88.5 fL (81-100); NEUTROPHILS % (AUTO) 46.6 % (40-74); Platelet Count 615 bil/L (150-400)
[2016-08-06 08:00] VITALS: PULSE 96
[2016-08-06] MEDS: Ondansetron 2 mg/mL 2 mL Inj IVPUSH PRN (09:25)
[2016-08-06] MEDS: Heparin 5,000 Unit/mL Inj SUBQ SCH ×2 (09:26→17:51)
--- NOTE | 2016-08-06 09:43 | PCM.PNMED ---
Subjective Date of Service Aug 06, 2016 Subjective Nephrology Progress Note: Attending Dr. Saleem Villarealcurly Miller is a 25-year-old female with past medical history significant for IV heroin and methamphetamine abuse who presented to [facility] ED with shortness of breath and chest pain. 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 Hospital day #23. Overnight: There were no acute events. She continued to complain of left shoulder pain and was given oxycodone. Telemetry over night: Sinus rhythm/ tachycardia, heart rate 90 to 120's, without ectopy. The patient is resting in bed side chair comfortably and in no acute distress. The patient reports worsening sternoclavicular abscess pain with radiation up neck to ear. She denies headache, chest pain, palpitations, shortness of breath , abdominal pain, nausea, vomiting, fever, chills, dysuria, diarrhea or constipation. She is voiding without difficulty. . Exam Vital Signs Vital Sign - Last Date Time Temp Pulse Resp B/P Pulse Ox O2 Delivery O2 Flow Rate FiO2 08/06/16 05:48 36.4 92 16 123/86 97 Room Air Intake and Output 08/05/16 08/05/16 08/06/16 Cumulative From/Thru 15:00 23:00 07:00 07/15/16 18:29 - 08/06/16 05:47 Intake Total 1751 ml 1300 ml 53792 ml Output Total 450 ml 1500 ml 34443 ml Balance 1301 ml -200 ml 17344 ml Intake Oral 1436 ml 1300 ml 08194 ml IV Total 315 ml 73312 ml Packed Cells 965 ml Output Urine Total 450 ml 1500 ml 95835 ml # Voids 15 # Bowel Movements 0 0 8 Exam General: Chronically ill-appearing young woman, in no acute distress. HEENT: Normocephalic, atraumatic. External ears without defect. Pupils equal, round, and reactive to light and accommodation. Neck: Supple with full range of motion. Cardiovascular: Tachycardic with regular rhythm and no murmurs, rubs, or gallops appreciated. Pulmonary: Lungs with crackles at bilateral bases. Normal respiratory effort with no use of accessory muscles. Abdomen: Soft, nontender, nondistended, bowel sounds present. No hepatosplenomegaly or masses appreciated. Extremities: Left sternoclavicular joint increasingly swollen and tender to palpation with no erythema. No clubbing, cyanosis, or edema. Neurological: Cranial nerves grossly intact. . IVs and Medications Medications Reviewed: Medications were reviewed in detail Lab and Diagnostics Item Value Date Time Calcium Level 8.8 mg/dL 08/06/16 0550 Total Bilirubin 0.2 mg/dL 08/06/16 0550 Aspartate Amino Transf (AST/SGOT) 10 U/L 08/06/16 0550 Alanine Aminotransferase (ALT/SGPT) 5 U/L 08/06/16 0550 Alkaline Phosphatase 51 U/L 08/06/16 0550 Total Protein 7.6 g/dL 08/06/16 0550 Albumin 3.1 g/dL L 08/06/16 0550 Result Diagram: 08/06/16 0550 08/06/16 0550 Microbiology Blood culture x7 positive for MSSA. Repeat blood cultures show no growth after 2 days. Respiratory viral PCR negative. Strep pneumoniae and Legionella urine antigen negative. Influenza screen negative. C. difficile DNA amplification negative. Urine culture shows no growth to date. . X-Rays, CTs and MRIs US RENAL SONOGRAM IMPRESSION: Increased renal cortical echogenicity suggesting mild medical renal disease. Dictated by: Delon Pelayo RRA Interpreted: Angy Chang MD on 08/04/2016 at 11: 19 Transcribed by: CARITO on 08/04/2016 at 11:19 Approved by: Angy Chang M.D. on 08/04/2016 at 11:46 MRA ANGIOGRAM HEAD WITHOUT CONTRAST IMPRESSION: 1. No definite high-grade stenosis or occlusion of the central intracranial arteries. Dictated by: Sulaiman Haines M.D. on 08/02/2016 at 19:49 Approved by: Sulaiman Haines M.D. on 08/02/2016 at 19:49 MRI BRAIN WITHOUT CONTRAST IMPRESSION: 1. Bilateral regions of relatively symmetric edema within the cerebellar hemispheres redemonstrated which are nonspecific but are compatible with posterior reversible encephalopathy as clinically queried. No restricted diffusion to suggest infarct. 2. Additional bilateral scattered supratentorial regions of cortical and subcortical edema are also nonspecific. The differential includes encephalitis , possible sequelae of septic emboli, or mass lesions. Recommend further evaluation with contrast-enhanced images when clinically feasible. Dictated by: Sulaiman Haines M.D. on 08/02/2016 at 19:46 Approved by: Sulaiman Haines M.D. on 08/02/2016 at 19:46 CT CHEST WITHOUT CONTRAST IMPRESSION: 1. Resolving septic emboli. 2. Increased bilateral pleural effusions and increased bibasilar pneumonia versus atelectasis. Dictated by: Antonieta Hayward M.D. on 08/03/2016 at 12:06 Approved by: Antonieta Hayward M.D. on 08/03/2016 at 12:06 CT BRAIN WITHOUT CONTRAST IMPRESSION: 1. Bilateral symmetric edema in the cerebellar hemispheres. Given patient's history of headache and hypertension, findings are compatible with hypertensive encephalopathy. The differential for the imaging appearance is bilateral cerebellar infarcts which are less likely given clinical history. 2. No intracranial hemorrhage, midline shift, or hydrocephalus. The findings were reported to the patient's nurse on 07/31/16 at 1:10 AM by [facility] radiology services. Dictated by: Sulaiman Haines M.D. on 07/31/2016 at 8:32 Approved by: Sulaiman Haines M.D. on 07/31/2016 at 8:32 X-RAY CHEST, TWO VIEWS IMPRESSION: Subpulmonic pleural effusions bilaterally right, and there also appears to be left greater than right pneumonia in each lung base. The appearance has worsened sequentially from 07/16/16 through 07/24/16 2 the current study. Dictated by: Jaya Carranza M.D. on 07/29/2016 at 13:05 Approved by: Jaya Carranza M.D. on 07/29/2016 at 13:05 MRI CERVICAL SPINE WITH AND WITHOUT CONTRAST IMPRESSION: 1. No evidence of discitis-osteomyelitis in the cervical spine. 2. No high-grade spinal canal or neuroforaminal narrowing. Dictated by: Sulaiman Haines M.D. on 07/28/2016 at 18:10 Approved by: Sulaiman Haines M.D. on 07/28/2016 at 18:10 MRI LUMBAR SPINE WITH AND WITHOUT CONTRAST IMPRESSION: 1. No evidence of discitis-osteomyelitis in the lumbar spine. 2. No spinal canal or neuroforaminal narrowing. Dictated by: Sulaiman Haines M.D. on 07/28/2016 at 18:38 Approved by: Sulaiman Haines M.D. on 07/28/2016 at 18:38 MRI THORACIC SPINE WITH AND WITHOUT CONTRAST IMPRESSION: 1. No evidence of osteomyelitis or discitis in the thoracic spine. 2. Moderate-sized bilateral pleural effusions. Dictated by: Sulaiman Haines M.D. on 07/28/2016 at 18:04 Approved by: Sulaiman Haines M.D. on 07/28/2016 at 18:04 MRI SHOULDER LEFT WITHOUT CONTRAST IMPRESSION: 1. Markedly limited study due to extensive motion artifact. 2. Small glenohumeral joint effusion, slightly increased in the axillary pouch compared to the prior study. Finding is nonspecific but given history of infection, septic arthritis cannot be excluded. 3. No definite evidence of osteomyelitis. 4. Extensive subcutaneous edema, increased from the prior study, as well as edema tracking between the visualized periarticular musculature suggestive of myositis. This includes prominent edema tracking deep to the deltoid muscle along the lateral aspect of the humeral head as well as along the superficial aspect of the deltoid. 5. No definite abscess identified given limitations of the study. Dictated by: Sulaiman Haines M.D. on 07/22/2016 at 8:36 Approved by: Sulaiman Haines M.D. on 07/22/2016 at 8:36 CT CHEST WITHOUT CONTRAST IMPRESSION: 1. Resolving septic emboli. 2. Increased bilateral pleural effusions and increased bibasilar pneumonia versus atelectasis. Dictated by: Antonieta Hayward M.D. on 08/03/2016 at 12:06 Approved by: Antonieta Hayward M.D. on 08/03/2016 at 12:06 . Cardiac Echo Impressions Echocardiogram Interpretation Summary: The left ventricle is normal in size, wall thickness, and systolic function without any focal wall motion abnormalities. The ejection fraction is estimated to be 55-60%. There is trace mitral regurgitation. No aortic regurgitation is present. Vegetation is once again noted on the tricuspid valve. (1.1 x 1.6 cm) The right ventricular systolic pressure is estimated at 48 mmHg assuming a right atrial pressure of 8 mm Hg. Electronically signed by: Kulwant Urena on Reading Physician:07/29/2016 12:37 PM Echocardiogram Report Name: RAJANI MILLERtudy Mirza e: 08/04/2016 Height: 62 in Hospital Exam Location: [facility] Weight: 135 lb Gender: Female BSA: 1.6 m2 : 1990 Age: 25 yrs Reason For Study: SEPTIC EMBOLI, ABNORMAL BRAIN MRI History: tricuspid valve endocarditis Performed By: Yesenia Rico Referring Physician: BEATRICE MUNROE Interpretation Summary No thrombus is detected in the left atrial appendage. The interatrial septum is intact with no evidence for an atrial septal defect. Injection of contrast documented no interatrial shunt. The mitral valve is normal in structure and function. The aortic valve is normal in structure and function. There is a large vegetation or mass on the tricuspid valve. The vegetation is 2.3 x 0.9 cm. There is severe tricuspid regurgitation. The pulmonic valve is not well seen, but is grossly normal. Procedure: Informed consent for Transesophageal Echocardiogram, and use of a contrast agent as needed, was obtained prior to the procedure. The patient was brought to the [facility] in a fasting state. Sedation was managed by anesthesiologist; see anesthesiology notes for details. A multifrequency, multiplane transesopheageal echocardiographic endoscope was inserted and manipulated in the standard fashion to achieve multiplane views. The transesophageal probe was passed without difficulty. A 2D transesophageal echocardiogram with spectral and color flow Doppler was performed. The patient's vital signs, including blood pressure, heart rate, pulse oximetry and cardiac rhythm were monitored throughout the procedure and remained stable. The patient tolerated the procedure well without evidence of orophangeal or esophageal trauma. Contrast injection with agitated saline was performed. The patient was in normal sinus rhythm during the exam. There were no complications. Left Ventricle: The left ventricular ejection fraction is grossly normal. Atria: No thrombus is detected in the left atrial appendage. The interatrial septum is intact with no evidence for an atrial septal defect. There is no Doppler evidence for an interatrial shunt. Injection of contrast documented no interatrial shunt. Mitral Valve: The mitral valve is normal in structure and function. There is no vegetation seen on the mitral valve. There is trace mitral regurgitation. Aortic Valve: The aortic valve is normal in structure and function. There is no aortic valvular vegetation. There is trace aortic regurgitation. Tricuspid Valve: There is a large vegetation or mass on the tricuspid valve. The vegetation is 2.3 x 0.9 cm. There is severe tricuspid regurgitation. Pulmonic Valve: The pulmonic valve is not well seen, but is grossly normal. There is no vegetation on the pulmonic valve. Great Vessels: A catheter appeared to lie in the superior vena cava. Electronically signed by: Kulwant Urena on Reading Physician:08/05/2016 10:52 AM . Assessment & Plan Rajani Miller is a 25-year-old female with past medical history significant for IV heroin and methamphetamine abuse who presented to [facility] ED with shortness of breath and chest pain. 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 Hospital day #23. 1. 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 2. Fluid overload, suspected right-sided heart failure. Resolving. 3. Hypertensive emergency with encephalopathy. 4. MSSA acute tricuspid valve endocarditis with septic pulmonary emboli. - Currently on the IV nafcillin infusion 12 g over 24 hours x 6 weeks. 5. Subnephrotic-range proteinuria and hematuria r/o immune complex glomerulonephritis. 6. Probable septic left sternoclavicular joint. I did contact [facility] left a message and they did get back to me and recommended trying tomorrow to see if any beds are available. 7. Hypertensive right-sided heart failure. 8. Polysubstance abuse. 9. Anemia of chronic disease. 10. Posterior reversible encephalopathy. PLAN: 1. Ordered RPR, urine protein to creatinine ratio, and UDS. 2. Ordered CT soft tissue of neck with contrast to assess sternoclavicular abscess. Will start renal protocol with IV fluids NS at 60 mL/hr now and discontinue at 2300 for prophylaxis against contrast-induced nephropathy. 3. Renal function improving. Continue to monitor renal function and urine output daily. 4. Continue chlorthalidone, metoprolol 100 mg twice daily, and losartan 50 mg daily. 5. Continue 2g Na diet. 6. Cryoglobulin pending. Renal ultrasound revealed increased renal cortical echogenicity suggesting mild medical renal disease. Renal biopsy in remote future once infection has resolved. 7. Highly recommend transfer out to tertiary care center to surgically address sternoclavicular abscess. . GI Prophylaxis: Not indicated VTE Prophylaxis: Sub-Q Heparin (Unfractionated) VTE Mechanical Devices: Intermittant Pneumatic CD Resuscitation Status: CPR: Attempt Resuscitation Attending Statement Nephrology attending seen and examined along with the internal medicine resident. I have also discussed the case with Dr. Dockery from infectious disease. I agree with the above statement and we have reviewed her plan. Heather Metz DO Aug 06, 2016 09:43 Abel Monge DO Aug 06, 2016 14:23
[2016-08-06] MEDS: hydrOXYzine Pamoate 25 mg Capsule PO SCH ×2 (09:51→13:16)
[2016-08-06] MEDS: MeTOProlol XL 50 mg ER24 Tablet PO SCH (09:52)
[2016-08-06] MEDS: lamoTRIgine 100 mg Tablet PO SCH (09:52)
[2016-08-06] MEDS: LORazepam 1 mg Tablet PO PRN ×2 (09:53→15:29)
[2016-08-06 10:33] VITALS: BP 131/91; PULSE 88; RESP 16; O2SAT 96
[2016-08-06] MEDS ORDERED: 0.9% Sodium Chloride 1,000 ML ONE (10:48)
[2016-08-06] MEDS ORDERED: 0.9% Sodium Chloride 1,000 ML IV SCH ×2 (11:10→23:00)
--- NOTE | 2016-08-06 12:22 | DRSVH ---
PROCEDURE: CT NECK SOFT TISSUES WITH CONTRAST ([id number]) INDICATIONS: PERISTERNAL ABCESS TECHNIQUE: After the administration of intravenous contrast, 3.0 mm axial sections acquired from the sella to th e aortic arch. Additional oblique axial 3.0 mm sections acquired through the pharynx. 3 mm thick co ian reformats were generated. For radiation dose reduction, the following was used: automated exp osure control. COMPARISON: [facility], CT, CT CHEST WO CON, 08/03/2016, 9:44. FINDINGS: Image quality: Excellent. Lymph nodes: No enlarged lymph nodes seen throughout the neck. Vessels: Visualized vasculature appears patent. Neck spaces: The oropharynx, nasopharynx, and pharynx demonstrate no mucosal lesions. The vocal cor ds, false vocal cords, pyriform sinuses, epiglottis, vallecula, and tongue base all appear normal. E xtramucosal spaces appear unremarkable. Glands: The parotid and submandibular glands appear normal. Thyroid gland is within normal limits. Miscellaneous: Visualized brain and orbits appear normal. Bilateral pleural fluid collections are st able compared to prior CT scan of the chest. Focal opacities and cavitary lesion in the lungs compati ble septic emboli are stable compared to prior CT scan of the chest. Superficial soft tissues appear normal. Bones: Inflammatory changes noted adjacent to the left sternoclavicular joint. Moderate-sized left st ernoclavicular joint effusion is noted which has developed in interval since prior CT scan of the [facility]. Findings highly suspicious for left sternoclavicular septic joint. The periosteal reaction is not ed in the base of the left clavicle. Visualized sinuses and mastoids appear unremarkable. IMPRESSION: 1. Left sternoclavicular joint effusion with adjacent inflammatory changes highly suspicious for sept ic joint. Recommend surgical consultation. 2. Periosteal reaction involving the proximal left clavicle adjacent to the sternoclavicular joint massey spicious for early osteomyelitis. 3. Bilateral pleural effusions stable compared to prior CT scan of the chest. 4. Bilateral lung septic emboli stable compared to prior CT scan of the chest. Dictated by: Airam Salguero MD, PhD on 08/06/2016 at 12:20 Approved by: Airam Salguero MD, PhD on 08/06/2016 at 12:20
--- NOTE | 2016-08-06 12:44 | PCM.PNMED ---
Subjective Date of Service Aug 06, 2016 Subjective Patient seen this morning, states she feels intermittent pain on the left side of her neck but nontender to palpation. Pain at her left sternal clavicle joint is approximate 7 at 10, denies fevers or chills. Does report significant tenderness to touch and has enlarged from yesterday. Currently attempting to transfer patient but has not had any luck with contact to [facility] and [facility]. I have called for surgical consult today to evaluate patient. Exam Vital Signs Vital Sign - Last Date Time Temp Pulse Resp B/P Pulse Ox O2 Delivery O2 Flow Rate FiO2 08/06/16 10:33 37.1 88 16 131/91 96 Room Air Intake and Output 08/05/16 08/05/16 08/06/16 Cumulative From/Thru 15:00 23:00 07:00 07/15/16 18:29 - 08/06/16 05:47 Intake Total 1751 ml 1300 ml 01988 ml Output Total 450 ml 1500 ml 90457 ml Balance 1301 ml -200 ml 78949 ml Intake Oral 1436 ml 1300 ml 07231 ml IV Total 315 ml 85617 ml Packed Cells 965 ml Output Urine Total 450 ml 1500 ml 13571 ml # Voids 15 # Bowel Movements 0 0 8 Exam Constitutional: No acute distress, up out of bed Head: Normocephalic atraumatic Chest: Clear to auscultation Cor: Regular rate and rhythm S1-S2 without murmur Abdomen: Soft nontender bowel sounds present Extremities exam: No pedal edema, examination of her left sternoclavicular region reveals inflammation and mild erythema with tenderness to palpation Neuro: Alert and oriented 3, motor strength is intact bilaterally IVs and Medications Medications Reviewed: Medications were reviewed in detail Lab and Diagnostics Result Diagram: 08/06/16 0550 08/06/16 0550 Microbiology Blood culture x7 positive for MSSA. Repeat blood cultures show no growth after 2 days. Respiratory viral PCR negative. Strep pneumoniae and Legionella urine antigen negative. Influenza screen negative. C. difficile DNA amplification negative. Urine culture shows no growth to date. . X-Rays, CTs and MRIs US RENAL SONOGRAM IMPRESSION: Increased renal cortical echogenicity suggesting mild medical renal disease. Dictated by: Delon LEYVA Interpreted: Angy Chang MD on 08/04/2016 at 11: 19 Transcribed by: CARITO on 08/04/2016 at 11:19 Approved by: Anyg Chang M.D. on 08/04/2016 at 11:46 MRA ANGIOGRAM HEAD WITHOUT CONTRAST IMPRESSION: 1. No definite high-grade stenosis or occlusion of the central intracranial arteries. Dictated by: Sulaiman Haines M.D. on 08/02/2016 at 19:49 Approved by: Sulaiman Haines M.D. on 08/02/2016 at 19:49 MRI BRAIN WITHOUT CONTRAST IMPRESSION: 1. Bilateral regions of relatively symmetric edema within the cerebellar hemispheres redemonstrated which are nonspecific but are compatible with posterior reversible encephalopathy as clinically queried. No restricted diffusion to suggest infarct. 2. Additional bilateral scattered supratentorial regions of cortical and subcortical edema are also nonspecific. The differential includes encephalitis , possible sequelae of septic emboli, or mass lesions. Recommend further evaluation with contrast-enhanced images when clinically feasible. Dictated by: Sulaiman Haines M.D. on 08/02/2016 at 19:46 Approved by: Sulaiman Haines M.D. on 08/02/2016 at 19:46 CT CHEST WITHOUT CONTRAST IMPRESSION: 1. Resolving septic emboli. 2. Increased bilateral pleural effusions and increased bibasilar pneumonia versus atelectasis. Dictated by: Antonieta Hayward M.D. on 08/03/2016 at 12:06 Approved by: Antonieta Hayward M.D. on 08/03/2016 at 12:06 CT BRAIN WITHOUT CONTRAST IMPRESSION: 1. Bilateral symmetric edema in the cerebellar hemispheres. Given patient's history of headache and hypertension, findings are compatible with hypertensive encephalopathy. The differential for the imaging appearance is bilateral cerebellar infarcts which are less likely given clinical history. 2. No intracranial hemorrhage, midline shift, or hydrocephalus. The findings were reported to the patient's nurse on 07/31/16 at 1:10 AM by [facility] radiology services. Dictated by: Sulaiman Haines M.D. on 07/31/2016 at 8:32 Approved by: Sulaiman Haines M.D. on 07/31/2016 at 8:32 X-RAY CHEST, TWO VIEWS IMPRESSION: Subpulmonic pleural effusions bilaterally right, and there also appears to be left greater than right pneumonia in each lung base. The appearance has worsened sequentially from 07/16/16 through 07/24/16 2 the current study. Dictated by: Jaya Carranza M.D. on 07/29/2016 at 13:05 Approved by: Jaya Carranza M.D. on 07/29/2016 at 13:05 MRI CERVICAL SPINE WITH AND WITHOUT CONTRAST IMPRESSION: 1. No evidence of discitis-osteomyelitis in the cervical spine. 2. No high-grade spinal canal or neuroforaminal narrowing. Dictated by: Sulaiman Haines M.D. on 07/28/2016 at 18:10 Approved by: Sulaiman Haines M.D. on 07/28/2016 at 18:10 MRI LUMBAR SPINE WITH AND WITHOUT CONTRAST IMPRESSION: 1. No evidence of discitis-osteomyelitis in the lumbar spine. 2. No spinal canal or neuroforaminal narrowing. Dictated by: Sulaiman Haines M.D. on 07/28/2016 at 18:38 Approved by: Sulaiman Haines M.D. on 07/28/2016 at 18:38 MRI THORACIC SPINE WITH AND WITHOUT CONTRAST IMPRESSION: 1. No evidence of osteomyelitis or discitis in the thoracic spine. 2. Moderate-sized bilateral pleural effusions. Dictated by: Sulaiman Haines M.D. on 07/28/2016 at 18:04 Approved by: Sulaiman Haines M.D. on 07/28/2016 at 18:04 MRI SHOULDER LEFT WITHOUT CONTRAST IMPRESSION: 1. Markedly limited study due to extensive motion artifact. 2. Small glenohumeral joint effusion, slightly increased in the axillary pouch compared to the prior study. Finding is nonspecific but given history of infection, septic arthritis cannot be excluded. 3. No definite evidence of osteomyelitis. 4. Extensive subcutaneous edema, increased from the prior study, as well as edema tracking between the visualized periarticular musculature suggestive of myositis. This includes prominent edema tracking deep to the deltoid muscle along the lateral aspect of the humeral head as well as along the superficial aspect of the deltoid. 5. No definite abscess identified given limitations of the study. Dictated by: Sulaiman Haines M.D. on 07/22/2016 at 8:36 Approved by: Sulaiman Haines M.D. on 07/22/2016 at 8:36 CT CHEST WITHOUT CONTRAST IMPRESSION: 1. Resolving septic emboli. 2. Increased bilateral pleural effusions and increased bibasilar pneumonia versus atelectasis. Dictated by: Antonieta Hayward M.D. on 08/03/2016 at 12:06 Approved by: Antonieta Hayward M.D. on 08/03/2016 at 12:06 . Cardiac Echo Impressions Echocardiogram Interpretation Summary: The left ventricle is normal in size, wall thickness, and systolic function without any focal wall motion abnormalities. The ejection fraction is estimated to be 55-60%. There is trace mitral regurgitation. No aortic regurgitation is present. Vegetation is once again noted on the tricuspid valve. (1.1 x 1.6 cm) The right ventricular systolic pressure is estimated at 48 mmHg assuming a right atrial pressure of 8 mm Hg. Electronically signed by: Kulwant Urena on Reading Physician:07/29/2016 12:37 PM Echocardiogram Report Name: DARLENE MILLER JStudy Mirza e: 08/04/2016 Height: 62 in Hospital Exam Location: [facility] Weight: 135 lb Gender: Female BSA: 1.6 m2 : 1990 Age: 25 yrs Reason For Study: SEPTIC EMBOLI, ABNORMAL BRAIN MRI History: tricuspid valve endocarditis Performed By: Yesenia Rico Referring Physician: AMILCAR MUNROE Interpretation Summary No thrombus is detected in the left atrial appendage. The interatrial septum is intact with no evidence for an atrial septal defect. Injection of contrast documented no interatrial shunt. The mitral valve is normal in structure and function. The aortic valve is normal in structure and function. There is a large vegetation or mass on the tricuspid valve. The vegetation is 2.3 x 0.9 cm. There is severe tricuspid regurgitation. The pulmonic valve is not well seen, but is grossly normal. Procedure: Informed consent for Transesophageal Echocardiogram, and use of a contrast agent as needed, was obtained prior to the procedure. The patient was brought to the [facility] in a fasting state. Sedation was managed by anesthesiologist; see anesthesiology notes for details. A multifrequency, multiplane transesopheageal echocardiographic endoscope was inserted and manipulated in the standard fashion to achieve multiplane views. The transesophageal probe was passed without difficulty. A 2D transesophageal echocardiogram with spectral and color flow Doppler was performed. The patient's vital signs, including blood pressure, heart rate, pulse oximetry and cardiac rhythm were monitored throughout the procedure and remained stable. The patient tolerated the procedure well without evidence of orophangeal or esophageal trauma. Contrast injection with agitated saline was performed. The patient was in normal sinus rhythm during the exam. There were no complications. Left Ventricle: The left ventricular ejection fraction is grossly normal. Atria: No thrombus is detected in the left atrial appendage. The interatrial septum is intact with no evidence for an atrial septal defect. There is no Doppler evidence for an interatrial shunt. Injection of contrast documented no interatrial shunt. Mitral Valve: The mitral valve is normal in structure and function. There is no vegetation seen on the mitral valve. There is trace mitral regurgitation. Aortic Valve: The aortic valve is normal in structure and function. There is no aortic valvular vegetation. There is trace aortic regurgitation. Tricuspid Valve: There is a large vegetation or mass on the tricuspid valve. The vegetation is 2.3 x 0.9 cm. There is severe tricuspid regurgitation. Pulmonic Valve: The pulmonic valve is not well seen, but is grossly normal. There is no vegetation on the pulmonic valve. Great Vessels: A catheter appeared to lie in the superior vena cava. Electronically signed by: Kulwant Urena on Reading Physician:08/05/2016 10:52 AM . Assessment & Plan Darlene Miller is a 25-year-old female with past medical history significant for IV heroin and methamphetamine abuse who presented to the ED with shortness of breath and chest pain. 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 Admit date: 07/16/2016 1. Severe sepsis, present on admission, active. - On admission temp 38.4, pulse 132, blood pressure 106/55, respiratory rate 24 , WBC 18.7, creatinine 2.11. - Fluid resuscitation and norepinephrine used initially. Currently hemodynamically stable. - Multiple blood cultures have come back MSSA. Her last set appears to be sterile. 2. 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 - Severe tricuspid regurgitation by echo. - Nafcillin 12,000 mg every 24 hours started 07/28/16. Tentative completion date of 08/31/16. - Repeat Echo on 07/29/16 continues to reveal vegetation measuring 1.1 x 1.6 cm. - Infectious disease following. Appreciate time and expertise. 3. Likely acute septic left sternoclavicular joint, likely present on admission , active and appears to be worsening. - MRI on 07/22/16 showed extensive subcutaneous edema but no definitive evidence of osteomyelitis. - Joint aspirated by ortho. - Cultures of joint aspirate no growth to date. - Antibiotics as above. - Discussed with Orthopedic surgery and they are recommending that if the sternoclavicular joint needs debridement the patient should be sent to a tertiary facility with a plastic surgeon or cardiothoracic surgeon that would be willing to do this procedure - please see below regarding efforts to transfer patient which have not been successful. Awaiting Janet Elliott called -Discussed with Dr. Lee and he agrees that this likely is going to need surgical debridement. 4. 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 - BUN and creatinine on admission 36 and 2.11. - BUN and creatinine stabilizing. - Nephrology following. Appreciate their time and expertise. 5. Generalized anasarca and fluid overload, not present on admission, active. - Etiology secondary to fluid resuscitation and right heart failure. - IV lasix 40 mg q 12 hr has been discontinued. - Continue Chlorthalidone 25 mg daily. - Continue 2 g sodium dietary restriction. - Nephrology following. Appreciate time and expertise. 6. Acute back pain, present on admission, active. - MRI of spine unremarkable. - Pain management with scheduled oxycodone 12.5 mg every 4 hours with 10% reduction everyday. 7. Hypertensive emergency, not present on admission, resolved - CT head 07/31/16 revealed bilateral symmetric edema in the cerebral hemispheres but no midline shift or intracranial hemorrhage. - Nicardipine drip stopped. - Metoprolol 100 mg twice a day. - Nifedipine 60 mg daily changed for losartan 50 mg daily due to tachycardia - Continue chlorthalidone and metoprolol 100 mg BID. - IV labetalol PRN SBP>180 or DBP>110. - Due to cerebral edema seen on CAT scan I have consulted Dr. Amilcar Munroe. I reviewed CT scan with him and he recommended an MRI stroke protocol. Patient completed part of the study but could not complete the rest despite receiving 10 mg of by mouth Valium along with oxycodone before the exam. - Dr. Munroe's impression and recommendations are as follows: "IMPRESSION: 1. Posterior reversible encephalopathy syndrome likely secondary to hypertensive emergency which has now resolved. 2. Although it is certainly possible that the abnormalities appreciated on the magnetic resonance imaging study of her brain may be seen in the setting of posterior reversible encephalopathy syndrome, the vast majority of the abnormalities that are appreciated in posterior reversible encephalopathy syndrome are symmetrical and are noted to be in the posterior fossa or in the parieto-occipital head region. The scattered bilateral moderate-sized areas of cortical and subcortical edema involving the bilateral frontal and temporal lobes. Although certainly could represent abnormality seen in the setting of posterior reversible encephalopathy syndrome do present the possibility that represent the sequelae of septic emboli. Encephalitis appears unlikely given the clinical history and examination. Mass lesions also appear unlikely given the clinical history and examination. My suspicion is that they may represent a possible sequelae of septic emboli and in light of this, I do recommend obtaining a transesophageal echocardiogram to exclude any other potential etiology such as a patent foramen ovale or a further vegetation. RECOMMENDATIONS: I would continue medical management with IV nafcillin as per Dr. Lee. I also contacted Dr. Lee and discuss this case. Although it is certainly possible that these lesions may be the reflection of posterior reversible encephalopathy syndrome, given the severity of her illness with the presence of resolving septic emboli seen on a CT of her chest without contrast. My suspicion is that these abnormalities appreciated on the magnetic resonance imaging study of her brain represents possible sequelae of septic emboli, likely secondary again to the vegetation. I do recommend a repeat magnetic resonance imaging study of her brain with and without contrast at some point in the future when her renal function has stabilized, although I think it highly unlikely that these abnormalities represent mass lesions." 8. Substance abuse, chronic, present on admission, active - History of IV heroin and methamphetamine use - Has been on Suboxone and methadone in the past. - Social work referral. - Dr. Sy discussed patient's case with Dr. Jensen (our ED physician who also prescribes and follows patient at clinic for Suboxone). Dr. Jensen graciously agrees to prescribe the patient Suboxone when she is ready for discharge and to follow her in her clinic provided that social work will setup the followup appointment and for Dr. Jensen to be contacted by the hospitalist team few days prior to patient's discharge. (Dr. Jensen's phone# is [phone] or he can be found in the ED). - If patient agrees to be off of narcotics for 24hours and try to tolerate her symptoms with Clonidine and Zofran for 24 hours will start her on Suboxone at 16mg/day at that point. 9. Anemia, normocytic normochromic, chronicity unknown. Present on admission. Active. - No evidence of active bleeding - Negative hemolytic workup, she did get 2 units of packed red blood cells earlier during this hospital - Continue to monitor. 10. Pain management - Patient switched from oral Dilaudid to oxycodone 15 mg every 4 hours on . - Patient will be titrated down 10% of morphine equivalents daily. - Discussed plan with the pharmacist. - Avoid additional narcotics and IV pain medications. 11. Urinary tract infection, present on admission, treated and resolved. 12. Acute diarrhea, not present on admission, resolved. - C. difficile negative 13. Left sternoclavicular joint inflammation possibly septic joint, acute, present after admission Have discussed transfer with [facility], [facility], and [facility] capacity and not accepting patients at this time. We have attempted calling on both August 05 and August 06. I have contacted Janet Elliott and currently awaiting callback as well Disposition: Patient needs to be transferred to a tertiary care center where she can have debridement of the left sternoclavicular joint likely with resection of the clavicular head and possibly part of the manubrium. Patient could also receive a transesophageal echocardiogram there. Also, patient would benefit from a repeat MRI stroke protocol under anesthesia or adequate sedation to be able to complete the exam. Repeat CT neck today to evaluate for developing new abscess. Appreciate all consultants input. Please see Dr. Lee's note. Pain Evaluation: Adequate Pain Control GI Prophylaxis: Not indicated VTE Prophylaxis: Sub-Q Heparin (Unfractionated) VTE Mechanical Devices: Intermittant Pneumatic CD Resuscitation Status: CPR: Attempt Resuscitation Time spent 60 minutes spent with evaluation and management of this patient Attending Statement Awaiting callback from Janet Elliott in regards to transfer possibility. Have been denied by [facility], [facility], and [facility] Cricket Musa DO Aug 06, 2016 12:44
--- NOTE | 2016-08-06 13:14 | PROG NOTE ---
[address] [address] PROGRESS NOTE PATIENT: RAJANI ALSTON : 1990 MR#: [id number] ADMIT: 07/15/2016 JOB ID: [id number] DATE: 08/06/2016 INFECTIOUS DISEASE FOLLOW UP NOTE: REASON FOR FOLLOWUP: MSSA endocarditis with septic pulmonary emboli, septic left sternoclavicular joint, infection of left shoulder, renal insufficiency and other endocarditis related issues. INTERVAL HISTORY: Overnight, the patient reports some unusual pain in her left neck both above and below the proximal clavicle. This is the area of great concern as his sternoclavicular joint has been swelling and we have been hoping to get her to a higher level of care for more evaluation of this problem. Otherwise, she has been feeling quite well. No fevers. No chills. No cough. No shortness of breath anymore and her ability to ambulate and do things for herself has really returned almost to normal with the exception of the left sternoclavicular joint. PHYSICAL EXAMINATION: Reveals an afebrile woman. Temperature 37.1, pulse 88, respiratory rate 16, blood pressure 131/91. She is saturating well on room air. Examination of the oral cavity is unremarkable. The neck is completely supple. The left sternoclavicular joint continues to feel more boggy, swollen and tender though it is not erythematous. I do not palpate any abnormalities above the clavicle in the neck but the patient does report some point tenderness 3 or 4 cm above and just laterally to the head of the clavicle. The patient has completely normal though range of motion of her head and neck, however. Lungs are relatively clear. A few crackles at the base. Cardiac tone without murmur as before. Abdomen negative. No skin rash. PICC line in good position. LABORATORIES: Include a white count stable at 9400, platelet count still too high at 615 though and her last sed rate was very elevated at greater than 140. Our last procalcitonin a couple days ago was 0. Creatinine is down to 1.19 at this point. LFTs are normal. CRP 5.4, about 10 times normal. Urinalysis not repeated recently. RPR has been ordered by the Nephrology team and is pending. Follow up blood cultures on the remain negative. The culture of the sternoclavicular joint as performed by the aspirate by Ortho on the , now a week ago, is negative. The images of the neck which we had requested just this morning after a conference between myself and Dr. Monge are now back. These show a left sternoclavicular joint effusion within inflammatory changes highly suspicious for a septic sternoclavicular joint. There is some periosteal reaction involving the proximal left clavicle consistent with early osteo. Bilateral pleural effusions are still seen in the chest and there is bilateral lung septic pulmonary emboli as before. IMPRESSION: This young woman with history of IV drug abuse extending right up to the day of admission presented with a critical illness and septic shock requiring ICU admission due to tricuspid valve MSSA endocarditis. She has had many problems related to this including a very significant infection around the left shoulder, multiple septic pulmonary emboli and renal insufficiency but at this point all these problems seem to be getting better. Oddly, as all of her other problems got better, her left sternoclavicular joint became prominent as it was almost normal at admission and is now swollen far beyond normal and increasingly painful. Serial scans have showed progressive joint effusion and now perhaps some early osteo in the area which will likely require surgical debridement. A culture one of our orthopedic colleagues obtained a week ago, however, from the joint was in fact negative. RECOMMENDATIONS: 1. We are continuing with the high-dose nafcillin until August 31. 2. It is reasonable to consult General Surgery here and see if they are interested in evaluating and perhaps debriding the left sternoclavicular septic joint, but if neither Ortho nor General Surgery wish to take on this fairly complex case, then it is reasonable to transfer this patient to [place] or [place] for debridement of the sternoclavicular joint as it clearly is not going to respond to antibiotics now that she is already into her day and this is still getting worse. 3. This case discussed with Dr. Monge as well as with the hospitalist caring for the patient.
[2016-08-06 15:37] VITALS: BP 124/83; PULSE 96; RESP 16; O2SAT 96
--- NOTE | 2016-08-06 16:12 | PCM.DC.MED ---
Discharge Summary Date of Service Aug 06, 2016 Dates of Hospitalization Date of Hospital Admission Jul 15, 2016 at 23:32 Date of Discharge: Aug 06, 2016 Providers: Admitting Physician: Ese Amanda MD Primary Care Physician: Taco Flores MD Attending Physician: Ese Amanda MD Diagnosis at Time of Discharge Diagnosis at Time of Discharge Patient to be transferred to [facility] when bed is available, this discharge summary will act as a transfer note and summary when bed is available. Procedures XRay, CTs & MRIs US RENAL SONOGRAM IMPRESSION: Increased renal cortical echogenicity suggesting mild medical renal disease. Dictated by: Delon Pelayo RRA Interpreted: Angy Chang MD on 08/04/2016 at 11: 19 Transcribed by: CARITO on 08/04/2016 at 11:19 Approved by: Angy Chang M.D. on 08/04/2016 at 11:46 MRA ANGIOGRAM HEAD WITHOUT CONTRAST IMPRESSION: 1. No definite high-grade stenosis or occlusion of the central intracranial arteries. Dictated by: Sulaiman Haines M.D. on 08/02/2016 at 19:49 Approved by: Sulaiman Haines M.D. on 08/02/2016 at 19:49 MRI BRAIN WITHOUT CONTRAST IMPRESSION: 1. Bilateral regions of relatively symmetric edema within the cerebellar hemispheres redemonstrated which are nonspecific but are compatible with posterior reversible encephalopathy as clinically queried. No restricted diffusion to suggest infarct. 2. Additional bilateral scattered supratentorial regions of cortical and subcortical edema are also nonspecific. The differential includes encephalitis , possible sequelae of septic emboli, or mass lesions. Recommend further evaluation with contrast-enhanced images when clinically feasible. Dictated by: Sulaiman Haines M.D. on 08/02/2016 at 19:46 Approved by: Sulaiman Haines M.D. on 08/02/2016 at 19:46 CT CHEST WITHOUT CONTRAST IMPRESSION: 1. Resolving septic emboli. 2. Increased bilateral pleural effusions and increased bibasilar pneumonia versus atelectasis. Dictated by: Antonieta Hayward M.D. on 08/03/2016 at 12:06 Approved by: Antonieta Hayward M.D. on 08/03/2016 at 12:06 CT BRAIN WITHOUT CONTRAST IMPRESSION: 1. Bilateral symmetric edema in the cerebellar hemispheres. Given patient's history of headache and hypertension, findings are compatible with hypertensive encephalopathy. The differential for the imaging appearance is bilateral cerebellar infarcts which are less likely given clinical history. 2. No intracranial hemorrhage, midline shift, or hydrocephalus. The findings were reported to the patient's nurse on 07/31/16 at 1:10 AM by [facility] radiology services. Dictated by: Sulaiman Haines M.D. on 07/31/2016 at 8:32 Approved by: Sulaiman Haines M.D. on 07/31/2016 at 8:32 X-RAY CHEST, TWO VIEWS IMPRESSION: Subpulmonic pleural effusions bilaterally right, and there also appears to be left greater than right pneumonia in each lung base. The appearance has worsened sequentially from 07/16/16 through 07/24/16 2 the current study. Dictated by: Jaya Carranza M.D. on 07/29/2016 at 13:05 Approved by: Jaya Carranza M.D. on 07/29/2016 at 13:05 MRI CERVICAL SPINE WITH AND WITHOUT CONTRAST IMPRESSION: 1. No evidence of discitis-osteomyelitis in the cervical spine. 2. No high-grade spinal canal or neuroforaminal narrowing. Dictated by: Sulaiman Haines M.D. on 07/28/2016 at 18:10 Approved by: Sulaiman Haines M.D. on 07/28/2016 at 18:10 MRI LUMBAR SPINE WITH AND WITHOUT CONTRAST IMPRESSION: 1. No evidence of discitis-osteomyelitis in the lumbar spine. 2. No spinal canal or neuroforaminal narrowing. Dictated by: Sulaiman Haines M.D. on 07/28/2016 at 18:38 Approved by: Sulaiman Haines M.D. on 07/28/2016 at 18:38 MRI THORACIC SPINE WITH AND WITHOUT CONTRAST IMPRESSION: 1. No evidence of osteomyelitis or discitis in the thoracic spine. 2. Moderate-sized bilateral pleural effusions. Dictated by: Sulaiman Haines M.D. on 07/28/2016 at 18:04 Approved by: Sulaiman Haines M.D. on 07/28/2016 at 18:04 MRI SHOULDER LEFT WITHOUT CONTRAST IMPRESSION: 1. Markedly limited study due to extensive motion artifact. 2. Small glenohumeral joint effusion, slightly increased in the axillary pouch compared to the prior study. Finding is nonspecific but given history of infection, septic arthritis cannot be excluded. 3. No definite evidence of osteomyelitis. 4. Extensive subcutaneous edema, increased from the prior study, as well as edema tracking between the visualized periarticular musculature suggestive of myositis. This includes prominent edema tracking deep to the deltoid muscle along the lateral aspect of the humeral head as well as along the superficial aspect of the deltoid. 5. No definite abscess identified given limitations of the study. Dictated by: Sulaiman Haines M.D. on 07/22/2016 at 8:36 Approved by: Sulaiman Hainse M.D. on 07/22/2016 at 8:36 CT CHEST WITHOUT CONTRAST IMPRESSION: 1. Resolving septic emboli. 2. Increased bilateral pleural effusions and increased bibasilar pneumonia versus atelectasis. Dictated by: Antonieta Hayward M.D. on 08/03/2016 at 12:06 Approved by: Antonieta Hayward M.D. on 08/03/2016 at 12:06 PROCEDURE: CT NECK SOFT TISSUES WITH CONTRAST ([id number]) 08/06/16 INDICATIONS: PERISTERNAL ABCESS TECHNIQUE: After the administration of intravenous contrast, 3.0 mm axial sections acquired from the sella to the aortic arch. Additional oblique axial 3.0 mm sections acquired through the pharynx. 3 mm thick coronal reformats were generated. For radiation dose reduction, the following was used: automated exposure control. COMPARISON: [facility], CT, CT CHEST WO CON, 08/03/2016, 9:44. FINDINGS: Image quality: Excellent. Lymph nodes: No enlarged lymph nodes seen throughout the neck. Vessels: Visualized vasculature appears patent. Neck spaces: The oropharynx, nasopharynx, and pharynx demonstrate no mucosal lesions. The vocal cords, false vocal cords, pyriform sinuses, epiglottis, vallecula, and tongue base all appear normal. Extramucosal spaces appear unremarkable. Glands: The parotid and submandibular glands appear normal. Thyroid gland is within normal limits. Miscellaneous: Visualized brain and orbits appear normal. Bilateral pleural fluid collections are stable compared to prior CT scan of the chest. Focal opacities and cavitary lesion in the lungs compatible septic emboli are stable compared to prior CT scan of the chest. Superficial soft tissues appear normal. Bones: Inflammatory changes noted adjacent to the left sternoclavicular joint. Moderate-sized left sternoclavicular joint effusion is noted which has developed in interval since prior CT scan of the chest. Findings highly suspicious for left sternoclavicular septic joint. The periosteal reaction is noted in the base of the left clavicle. Visualized sinuses and mastoids appear unremarkable. IMPRESSION: 1. Left sternoclavicular joint effusion with adjacent inflammatory changes highly suspicious for septic joint. Recommend surgical consultation. 2. Periosteal reaction involving the proximal left clavicle adjacent to the sternoclavicular joint suspicious for early osteomyelitis. 3. Bilateral pleural effusions stable compared to prior CT scan of the chest. 4. Bilateral lung septic emboli stable compared to prior CT scan of the chest. Dictated by: Airam Salguero MD, PhD on 08/06/2016 at 12:20 . Cardiac Echo Impression Echocardiogram Interpretation Summary: The left ventricle is normal in size, wall thickness, and systolic function without any focal wall motion abnormalities. The ejection fraction is estimated to be 55-60%. There is trace mitral regurgitation. No aortic regurgitation is present. Vegetation is once again noted on the tricuspid valve. (1.1 x 1.6 cm) The right ventricular systolic pressure is estimated at 48 mmHg assuming a right atrial pressure of 8 mm Hg. Electronically signed by: Kulwant Urena on Reading Physician:07/29/2016 12:37 PM Echocardiogram Report Name: RAJANI MILLER JStudy Mirza e: 08/04/2016 Height: 62 in Hospital Exam Location: [facility] Weight: 135 lb Gender: Female BSA: 1.6 m2 : 1990 Age: 25 yrs Reason For Study: SEPTIC EMBOLI, ABNORMAL BRAIN MRI History: tricuspid valve endocarditis Performed By: Yesenia Rico Referring Physician: BEATRICE MUNROE Interpretation Summary No thrombus is detected in the left atrial appendage. The interatrial septum is intact with no evidence for an atrial septal defect. Injection of contrast documented no interatrial shunt. The mitral valve is normal in structure and function. The aortic valve is normal in structure and function. There is a large vegetation or mass on the tricuspid valve. The vegetation is 2.3 x 0.9 cm. There is severe tricuspid regurgitation. The pulmonic valve is not well seen, but is grossly normal. Procedure: Informed consent for Transesophageal Echocardiogram, and use of a contrast agent as needed, was obtained prior to the procedure. The patient was brought to the [facility] in a fasting state. Sedation was managed by anesthesiologist; see anesthesiology notes for details. A multifrequency, multiplane transesopheageal echocardiographic endoscope was inserted and manipulated in the standard fashion to achieve multiplane views. The transesophageal probe was passed without difficulty. A 2D transesophageal echocardiogram with spectral and color flow Doppler was performed. The patient's vital signs, including blood pressure, heart rate, pulse oximetry and cardiac rhythm were monitored throughout the procedure and remained stable. The patient tolerated the procedure well without evidence of orophangeal or esophageal trauma. Contrast injection with agitated saline was performed. The patient was in normal sinus rhythm during the exam. There were no complications. Left Ventricle: The left ventricular ejection fraction is grossly normal. Atria: No thrombus is detected in the left atrial appendage. The interatrial septum is intact with no evidence for an atrial septal defect. There is no Doppler evidence for an interatrial shunt. Injection of contrast documented no interatrial shunt. Mitral Valve: The mitral valve is normal in structure and function. There is no vegetation seen on the mitral valve. There is trace mitral regurgitation. Aortic Valve: The aortic valve is normal in structure and function. There is no aortic valvular vegetation. There is trace aortic regurgitation. Tricuspid Valve: There is a large vegetation or mass on the tricuspid valve. The vegetation is 2.3 x 0.9 cm. There is severe tricuspid regurgitation. Pulmonic Valve: The pulmonic valve is not well seen, but is grossly normal. There is no vegetation on the pulmonic valve. Great Vessels: A catheter appeared to lie in the superior vena cava. Electronically signed by: Kulwant M.D. Vaderah on Reading Physician:08/05/2016 10:52 AM . Brief History Patient is a 25-year-old IV heroin and meth using female presenting with shortness of breath and chest pain. She is a vague historian and currently not in the mood to interact or elaborate, but she reports onset of shortness of breath about two days ago with accompanying chest pain. She reports the chest pain is noticeable with breathing and involves her left shoulder. At time of visit, she reports her chest pain is improved. She currently is very fatigued but otherwise denies chills, cough, nausea, emesis, abdominal pain, dysuria. She reports actively using IV heroin and occasionally IV meth. She reports last using IV heroin some time this morning. She is currently homeless and staying at homes of various friends. In the ED, vitals: 38.4C, RR 102, RR 20 satting 97% on room air, BP 95/48. Notable labs: WBC 18.7, Na 128, BUN 36, creatinine 2.11. D-dimer 11.5. UA with large leukocyte esterase, WBC 6-10 and few bacteria. Chest x-ray with bilateral lower lobe infiltrates. Urine toxicology screen positive for meth, amphetamines and opiates. Patient received 2L NS in the ED and started on ceftriaxone and azithromycin. Hospital Course HOSPITAL COURSE: Rajani Miller is a 25-year-old female with past medical history significant for IV heroin and methamphetamine abuse who presented to the ED with shortness of breath and chest pain. 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 Admit date: 07/16/2016 1. Severe sepsis, present on admission, active. - On admission temp 38.4, pulse 132, blood pressure 106/55, respiratory rate 24 , WBC 18.7, creatinine 2.11. - Fluid resuscitation and norepinephrine used initially. Currently hemodynamically stable. - Multiple blood cultures have come back MSSA. Her last set appears to be sterile. 2. 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 - Severe tricuspid regurgitation by echo. - Nafcillin 12,000 mg every 24 hours started 07/28/16. Tentative completion date of 08/31/16. - Repeat Echo on 07/29/16 continues to reveal vegetation measuring 1.1 x 1.6 cm. - Infectious disease following. Appreciate time and expertise. 3. Likely acute septic left sternoclavicular joint, likely present on admission , active and appears to be worsening. - MRI on 07/22/16 showed extensive subcutaneous edema but no definitive evidence of osteomyelitis. - Joint aspirated by ortho. - Cultures of joint aspirate no growth to date. - Antibiotics as above. - Discussed with Orthopedic surgery and they are recommending that if the sternoclavicular joint needs debridement the patient should be sent to a tertiary facility with a plastic surgeon or cardiothoracic surgeon that would be willing to do this procedure - please see below regarding efforts to transfer patient which have not been successful. Awaiting Janet Elliott called -Discussed with Dr. Lee and he agrees that this likely is going to need surgical debridement. 4. 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 - BUN and creatinine on admission 36 and 2.11. - BUN and creatinine stabilizing. - Nephrology following. Appreciate their time and expertise. 5. Generalized anasarca and fluid overload, not present on admission, active. - Etiology secondary to fluid resuscitation and right heart failure. - IV lasix 40 mg q 12 hr has been discontinued. - Continue Chlorthalidone 25 mg daily. - Continue 2 g sodium dietary restriction. - Nephrology following. Appreciate time and expertise. 6. Acute back pain, present on admission, active. - MRI of spine unremarkable. - Pain management with scheduled oxycodone 12.5 mg every 4 hours with 10% reduction everyday. 7. Hypertensive emergency, not present on admission, resolved - CT head 07/31/16 revealed bilateral symmetric edema in the cerebral hemispheres but no midline shift or intracranial hemorrhage. - Nicardipine drip stopped. - Metoprolol 100 mg twice a day. - Nifedipine 60 mg daily changed for losartan 50 mg daily due to tachycardia - Continue chlorthalidone and metoprolol 100 mg BID. - IV labetalol PRN SBP>180 or DBP>110. - Due to cerebral edema seen on CAT scan I have consulted Dr. Beatrice Munroe. I reviewed CT scan with him and he recommended an MRI stroke protocol. Patient completed part of the study but could not complete the rest despite receiving 10 mg of by mouth Valium along with oxycodone before the exam. - Dr. Munroe's impression and recommendations are as follows: "IMPRESSION: 1. Posterior reversible encephalopathy syndrome likely secondary to hypertensive emergency which has now resolved. 2. Although it is certainly possible that the abnormalities appreciated on the magnetic resonance imaging study of her brain may be seen in the setting of posterior reversible encephalopathy syndrome, the vast majority of the abnormalities that are appreciated in posterior reversible encephalopathy syndrome are symmetrical and are noted to be in the posterior fossa or in the parieto-occipital head region. The scattered bilateral moderate-sized areas of cortical and subcortical edema involving the bilateral frontal and temporal lobes. Although certainly could represent abnormality seen in the setting of posterior reversible encephalopathy syndrome do present the possibility that represent the sequelae of septic emboli. Encephalitis appears unlikely given the clinical history and examination. Mass lesions also appear unlikely given the clinical history and examination. My suspicion is that they may represent a possible sequelae of septic emboli and in light of this, I do recommend obtaining a transesophageal echocardiogram to exclude any other potential etiology such as a patent foramen ovale or a further vegetation. RECOMMENDATIONS: I would continue medical management with IV nafcillin as perDr. Lee. I also contacted Dr. Lee and discuss this case. Although it is certainly possible that these lesions may be the reflection of posterior reversible encephalopathy syndrome, given the severity of her illness with the presence of resolving septic emboli seen on a CT of her chest without contrast. My suspicion is that these abnormalities appreciated on the magnetic resonance imaging study of her brain represents possible sequelae of septic emboli, likely secondary again to the vegetation. I do recommend a repeat magnetic resonance imaging study of her brain with and without contrast at some point in the future when her renal function has stabilized, although I think it highly unlikely that these abnormalities represent mass lesions." 8. Substance abuse, chronic, present on admission, active - History of IV heroin and methamphetamine use - Has been on Suboxone and methadone in the past. - Social work referral. - Dr. Sy discussed patient's case with Dr. Jensen (our ED physician who also prescribes and follows patient at clinic for Suboxone). Dr. Jensen graciously agrees to prescribe the patient Suboxone when she is ready for discharge and to follow her in her clinic provided that social work will setup the followup appointment and for Dr. Jensen to be contacted by the hospitalist team few days prior to patient's discharge. (Dr. Jensen's phone# is [phone] or he can be found in the ED). - If patient agrees to be off of narcotics for 24hours and try to tolerate her symptoms with Clonidine and Zofran for 24 hours will start her on Suboxone at 16mg/day at that point. 9. Anemia, normocytic normochromic, chronicity unknown. Present on admission. Active. - No evidence of active bleeding - Negative hemolytic workup, she did get 2 units of packed red blood cells earlier during this hospital - Continue to monitor. 10. Pain management - Patient switched from oral Dilaudid to oxycodone 15 mg every 4 hours on . - Patient will be titrated down 10% of morphine equivalents daily. - Discussed plan with the pharmacist. - Avoid additional narcotics and IV pain medications. 11. Urinary tract infection, present on admission, treated and resolved. 12. Acute diarrhea, not present on admission, resolved. - C. difficile negative 13. Left sternoclavicular joint inflammation possibly septic joint, acute, present after admission Have discussed transfer with [facility], [facility], and [facility] capacity and not accepting patients at this time. We have attempted calling on both August 05 and August 06. I have contacted Janet Elliott and currently awaiting callback as well Disposition: Patient needs to be transferred to a tertiary care center where she can have debridement of the left sternoclavicular joint likely with resection of the clavicular head and possibly part of the manubrium. Patient could also receive a transesophageal echocardiogram there. Also, patient would benefit from a repeat MRI stroke protocol under anesthesia or adequate sedation to be able to complete the exam. Repeat CT neck today to evaluate for developing new abscess. Appreciate all consultants input. Please see Dr. Lee's note. Exam Vital Signs (Last) Date Time Temp Pulse Resp B/P Pulse Ox O2 Delivery O2 Flow Rate FiO2 08/06/16 15:37 36.8 96 16 124/83 96 Room Air Exam Constitutional: No acute distress, up out of bed Head: Normocephalic atraumatic Chest: Clear to auscultation Cor: Regular rate and rhythm S1-S2 without murmur Abdomen: Soft nontender bowel sounds present Extremities exam: No pedal edema, examination of her left sternoclavicular region reveals inflammation and mild erythema with tenderness to palpation Neuro: Alert and oriented 3, motor strength is intact bilaterally Test 07/15/16 19:57 07/15/16 20:00 07/16/16 12:15 07/16/16 16:52 D-Dimer 11.5mg/L (<0.50) Urine HCG, Qualitative Negative (Negative) Chlamydia trachomatis DNA (NASRIN) Negative (Negative) Urine Legionella pneumophilia Ag Negative (Negative) Neisseria gonorrhoeae DNA (NASRIN) Negative (Negative) Fibrinogen 237mg/dL (157-380) Lactic Acid Level 0.8mmol/L (0.4-2.0) Test 07/17/16 04:45 07/18/16 19:30 07/20/16 11:30 07/21/16 08:00 Hepatitis C Antibody 0.1s/co ratio (0.0-0.9) HIV (1&2) Ag and Ab, 4th Generation Non reactive (Non Reactive) Vancomycin Level Trough 19.0mcg/mL Hold Urine Received (Received) Haptoglobin 165mg/dL (34-200) Iron Level 13ug/dL (35-150) Total Iron Binding Capacity 106ug/dL (250-450) Percent Iron Saturation 12%sat (15-50) Unsaturated Iron Binding 93.0ug/dL Lactate Dehydrogenase 199U/L (100-190) Vitamin B12 Level 1359pg/mL (211-946) Folate 7.6ng/mL (>3.0) Test 07/26/16 15:02 07/28/16 09:45 07/30/16 05:42 07/31/16 05:20 Urine Color Yellow (YELLOW) Urine Appearance Hazy (CLEAR,HAZY) Urine pH 6.0 (5.0-8.0) Urine Specific [place] 1.020 (1.003-1.035) Urine Protein 100mg/dL (NEG,TRACE) Urine Glucose (UA) Negativemg/dL (NEGATIVE) Urine Ketones Negativemg/dL (NEGATIVE) Urine Occult Blood Large (NEGATIVE) Urine Nitrite Negative (NEGATIVE) Urine Bilirubin Negative (NEGATIVE) Urine Urobilinogen Normalmg/dL (NORMAL) Urine Leukocyte Esterase Trace (NEGATIVE) Urine RBC >50/hpf (0-2) Urine WBC 6-10/hpf (0-5) Urine Epithelial Cells Occasional/hpf (NONE-MOD) Urine Crystals None seen (NONE SEEN) Urine Bacteria Few/hpf (NONE-FEW) Urine Hyaline Casts None/lpf (NONE) Urine Granular Casts Occasional (NONE SEEN) Urine Waxy Casts None seen (NONE SEEN) Urine Red Blood Cell Casts None seen (NONE SEEN) Urine White Blood Cell Casts None seen (NONE SEEN) Urine Mucus Present (None Seen) Urine Trichomonas None seen (NONE SEEN) Urine Yeast None (NONE SEEN) Urinalysis Comment None Urine Culture Reflexed Indicated Urine Random Sodium 64mEq/L Lipase 19U/L (13-60) Hold Purple Top Tube Received (Received) Myeloperoxidase <9.0U/mL (0.0-9.0) Cytoplasmic ANCA (c-ANCA) Antibody <1:20titer (Neg:<1:20) Proteinase 3 (PR3) Antibodies <3.5U/mL (0.0-3.5) Atypical p-ANCA <1:20titer (Neg:<1:20) Perinuclear ANCA (p-ANCA) Antibody <1:20titer (Neg:<1:20) Ferritin 467ng/mL (13-150) Pro-B-Type Natriuretic Peptide 30713wy/mL (0-130) Anti-Nuclear Antibody Screen Negative (Negative) Hepatitis B Surface Antigen Negative (Negative) Test 08/03/16 08:45 08/04/16 05:54 08/06/16 05:50 08/06/16 11:15 Hold Ross Top Tube Received (Received) Complement C3 158mg/dL (82-167) Complement C4 22mg/dL (14-44) Erythrocyte Sedimentation Rate > 140mm/hr (0-32) Magnesium Level 2.2mg/dL (1.6-2.6) C-Reactive Protein 5.4mg/dL (0.0-0.5) Procalcitonin < 0.05ng/mL (See Comment) White Blood Count 9.4th/mm3 (3.8-10.1) Red Blood Count 3.22mil/mm3 (3.90-5.20) Hemoglobin 8.9g/dL (12.0-15.6) Hematocrit 28.5% (35.0-46.0) Mean Corpuscular Volume 88.5fL (81-100) Mean Corpuscular Hemoglobin 27.6pg (27.0-35.0) Mean Corpuscular Hemoglobin Concent 31.2% (32.0-37.0) Red Cell Distribution Width 15.6% (12.3-15.4) Platelet Count 615bil/L (150-400) Neutrophils (%) (Auto) 46.6% (40-74) Lymphocytes (%) (Auto) 40.9% (14-46) Monocytes (%) (Auto) 9.4% (4-12) Eosinophils (%) (Auto) 2.6% (0-5) Basophils (%) (Auto) 0.1% (0-3) Sodium Level 143mEq/L (134-144) Potassium Level 4.2mEq/L (3.5-5.2) Chloride Level 104mEq/L (97-108) Carbon Dioxide Level 27mmol/L (18-29) Blood Urea Nitrogen 28mg/dL (6-20) Creatinine 1.19mg/dL (0.57-1.00) Estimat Glomerular Filtration Rate 81mL/min (>59) Glucose Level 101mg/dL (60-99) Calcium Level 8.8mg/dL (8.5-10.1) Total Bilirubin 0.2mg/dL (0.0-1.2) Aspartate Amino Transf (AST/SGOT) 10U/L (0-50) Alanine Aminotransferase (ALT/SGPT) 5U/L (0-32) Alkaline Phosphatase 51U/L (25-150) Total Protein 7.6g/dL (6.4-8.4) Albumin 3.1g/dL (3.4-5.0) Hold [place] Top Tube Received (Received) Test 08/06/16 13:07 Urine Random Creatinine 26mg/dL (16-392) Urine Random Total Protein 83mg/dL (0-15) Urine Protein/Creatinine Ratio 3.19 Urine Opiates Screen Negative Urine Methadone Screen Negative Urine Barbiturates Screen Negative Urine Amphetamines Screen Negative Urine Benzodiazepines Screen Negative Urine Cocaine Metabolite Screen Negative Urine Cannabinoids Screen Negative Microbiology Results Blood culture x7 positive for MSSA. Repeat blood cultures show no growth after 2 days. Respiratory viral PCR negative. Strep pneumoniae and Legionella urine antigen negative. Influenza screen negative. C. difficile DNA amplification negative. Urine culture shows no growth to date. . Discharge Medications Discharge Medications Gabapentin (Neurontin) 300 Mg Capsule 600 MG PO TID Prescribed by: YENNI ROGEL MD Lamotrigine (Lamotrigine) 200 Mg Tablet 200 MG PO BID (Reported) Ropinirole (Ropinirole) 1 Mg Tablet 1 MG PO HS (Reported) hydrOXYzine Hcl (HydrOXYzine Hcl) 25 Mg Tablet 25 MG PO BID (Reported) 1 tablet in the morning and at noon hydrOXYzine Hcl (HydrOXYzine Hcl) 25 Mg Tablet 50 MG PO HS (Reported) As needed Clonidine (Clonidine) 0.3 Mg Tablet 1-2 TAB PO TID PRN PRN For Anxiety (Reported ) Ondansetron (Ondansetron) 4 Mg Tablet 4 MG PO TID PRN PRN For Nausea (Reported) Cricket Musa DO Aug 06, 2016 16:12
--- NOTE | 2016-08-06 19:58 | NUR ---
transfer to [facility] Pt continues on continuous infusion of Naficillin per orders. Orders to transfer pt to [facility]. IV therapy notified and 3 lumen PICC to remain in place. Called report to Esther SESAY at [facility], phone # [phone]. [place] [facility] ALS transport arranged by [employer]. Pt's mom notified and aware. Pt picked up via ALS transport stretcher at 1845, pt in stable condition at time of transfer, transferred with all belongings. Report given to ALS transport team and pt transferred with IV naficillin still infusing. Pt left facility via stretcher with ALS transport at 1917. Called [phone] to alert HAILEY SESAY of transport discharge time and aware.
[2016-10-23] MEDS ORDERED: NITR100 PO (10:21)
== END 2016-08-06 19:17 | disposition short-term general hospital (02) | DRG 871 ==
LOC: SED 19:57 → OSC 23:32 → CCU 07-16 06:01 → PCC 07-19 04:57 → OSC 07-23 04:44 → CCU 07-31 02:46 → OSC 08-01 17:01
PROVIDERS: ADMIT Specialist; ATTEND Specialist
PROC: 30233N1 Transfusion of Nonautologous Red Blood Cells into Peripheral Vein, Percutaneous Approach (ICD-10-PCS; 2016-07-21)
PROC: 30233N1 Transfusion of Nonautologous Red Blood Cells into Peripheral Vein, Percutaneous Approach (ICD-10-PCS; 2016-07-22)
PROC: 0R9 Upper Joints, Drainage (ICD-10-PCS; principal; 2016-07-29)
PROC: B246YZZ Ultrasonography of Right and Left Heart using Other Contrast (ICD-10-PCS; 2016-08-04)
DX: A41.01 Sepsis due to Methicillin susceptible Staphylococcus aureus (principal); I33.0 Acute and subacute infective endocarditis; J18.9 Pneumonia, unspecified organism; R65.21 Severe sepsis with septic shock; I26.90 Septic pulmonary embolism without acute cor pulmonale; N17.0 Acute kidney failure with tubular necrosis; N39.0 Urinary tract infection, site not specified; M00.012 Staphylococcal arthritis, left shoulder; F11.20 Opioid dependence, uncomplicated; F15.20 Other stimulant dependence, uncomplicated; I16.1 Hypertensive emergency; I67.4 Hypertensive encephalopathy; B95.61 Methicillin susceptible Staphylococcus aureus infection as the cause of diseases classified elsewhere; F17.210 Nicotine dependence, cigarettes, uncomplicated; D64.9 Anemia, unspecified; R19.7 Diarrhea, unspecified; R60.1 Generalized edema

== ENCOUNTER 2016-10-21 17:02 | Emergency (ER) | payer OTHER ==
[~2016-10-21 17:02] MED LIST changes: -BUPR1FIL3 SL; -CEPH-512 PO; +CLON0.3T PO; -HYDR-3605 PO; +HYDR-656 PO; -LAMO100T PO; +LAMO200T2 PO; -MTH4T PO; -NICO1PAT5 TOPICAL; -NPR500T PO; +ONDA-53 PO
[2016-10-21 17:24] VITALS: BP 119/80; PULSE 101; RESP 14; O2SAT 98
--- NOTE | 2016-10-21 19:06 | ED.REPORT ---
HPI-General Illness Date of Service Oct 21, 2016 ED Provider: Francy Costa History of Present Illness: no primary care. plans on going to treatment in a few days. Wants blood work checked. no compliants at this time Nursing Notes Stated Complaint: FOLLOW UP ON BLOOD TEST AND PRESCRIPTIONS Chief Complaint: General Complaint Nursing Notes Reviewed: Yes Allergies: Coded Allergies: sulfamethoxazole (Verified Allergy, Intermediate, 10/21/16) serum sickness with arthritis trimethoprim (Verified Allergy, Intermediate, 10/21/16) serum sickness with arthritis Scheduled Gabapentin (Neurontin) 300 Mg Capsule 600 MG PO TID Lamotrigine (Lamotrigine) 200 Mg Tablet 200 MG PO BID Ropinirole (Ropinirole) 1 Mg Tablet 1 MG PO HS hydrOXYzine Hcl (HydrOXYzine Hcl) 25 Mg Tablet 25 MG PO BID 1 tablet in the morning and at noon hydrOXYzine Hcl (HydrOXYzine Hcl) 25 Mg Tablet 50 MG PO HS Scheduled PRN Clonidine (Clonidine) 0.3 Mg Tablet 1-2 TAB PO TID PRN PRN For Anxiety Ondansetron (Ondansetron) 4 Mg Tablet 4 MG PO TID PRN PRN For Nausea General Time Seen by MD: 18:59 Chief Complaint Medication refill Hx Obtained From: Patient Sudden in Onset?: No Past Medical History Past Medical History Notes: P:1, RH negative Past Medical History Seizures Reports: Asthma Past Surgical History none reported Family History noncontributory Smoking History Current Every Day Smoker Social History last used heroin this am 07/15/2016 last use a few hours ago 10/21/2016 Alcohol Use: Denies alcohol use Drug Use: IV drugs Other Social History: Local resident Occupation homeless at present no work or school at this time 07/15/2016 Ambulatory Status Independent Review of Systems Full Review of Systems Constitutional: Denies: Chills Eyes: Denies: Blurred left, Blurred right Cardiovascular: Denies: Chest pain Female: Denies: Dysuria Physical Exam Vital Signs Vital Signs Date Time Temp Pulse Resp B/P Pulse Ox O2 Delivery O2 Flow Rate FiO2 10/21/16 20:36 103 16 112/80 98 Room Air 10/21/16 17:24 101 14 119/80 98 Room Air Initial VS: Reviewed, Vital signs normal General/Constitutional: Well-developed, Well-nourished Head / Eyes: Atraumatic, Normocephalic, PERRL ENT: Mucous membranes moist, Conjunctiva normal, No scleral icterus Neck: Supple, Non-tender, Full range of motion Respiratory: Breath sounds normal, Clear to auscultation, No respiratory distress Cardiovascular: Regular rate & rhythm, Heart sounds normal, Intact distal pulses Abdomen / GI: Soft, Non-tender, No guarding, No rebound, No distention Back: No CVA tenderness Lymphatic: No lymphadenopathy Extremities: Vascular intact, Neuro intact, No swelling, No tenderness Skin: Warm, Dry, No cyanosis Neurologic: Alert, Oriented, Nonfocal Psychiatric: Mood/affect normal, Behavior normal, Normal thought content General/Constitutional: Awake, Alert, No acute distress, Well appearing, Well developed, Well hydrated, Well nourished, Cooperative, Not toxic appearing Head / Eyes: Atraumatic, Normocephalic, PERRL, EOMI ENT: Atraumatic, Airway patent, Mucous membranes moist, Pharynx NL Respiratory / Chest: Atraumatic, Breath sounds NL, Breath sounds = bilat, No respiratory distress Cardiovascular: Heart rate NL, Regular rhythm, Heart sounds NL, No gallop Abdomen: Atraumatic, Soft, Non-tender Interpretation & Diagnostics Interpretation & Diagnostics: ultraound does show small clot in basicalic vein Lab Results Interpretation Result Diagram: 10/21/16194210/21/161942 Test 10/21/16 19:43 10/21/16 20:21 10/21/16 20:33 White Blood Count 8.9th/mm3 (3.8-10.1) Red Blood Count 3.26mil/mm3 (3.90-5.20) Hemoglobin 9.4g/dL (12.0-15.6) Hematocrit 28.9% (35.0-46.0) Mean Corpuscular Volume 88.7fL (81-100) Mean Corpuscular Hemoglobin 28.8pg (27.0-35.0) Mean Corpuscular Hemoglobin Concent 32.5% (32.0-37.0) Red Cell Distribution Width 15.3% (12.3-15.4) Platelet Count 259bil/L (150-400) Neutrophils (%) (Auto) 44.1% (40-74) Lymphocytes (%) (Auto) 46.8% (14-46) Monocytes (%) (Auto) 6.6% (4-12) Eosinophils (%) (Auto) 1.7% (0-5) Basophils (%) (Auto) 0.6% (0-3) Sodium Level 137mEq/L (134-144) Potassium Level 4.7mEq/L (3.5-5.2) Chloride Level 95mEq/L (97-108) Carbon Dioxide Level 25mmol/L (18-29) Blood Urea Nitrogen 19mg/dL (6-20) Creatinine 1.08mg/dL (0.57-1.00) Estimat Glomerular Filtration Rate 90mL/min (>59) Glucose Level 98mg/dL (60-99) Lactic Acid Level 1.2mmol/L (0.4-2.0) Calcium Level 10.1mg/dL (8.5-10.1) Total Bilirubin 0.2mg/dL (0.0-1.2) Aspartate Amino Transf (AST/SGOT) 17U/L (0-50) Alanine Aminotransferase (ALT/SGPT) 9U/L (0-32) Alkaline Phosphatase 77U/L (25-150) C-Reactive Protein 0.6mg/dL (0.0-0.5) Total Protein 8.4g/dL (6.4-8.4) Albumin 4.3g/dL (3.4-5.0) Urine Color Yellow (YELLOW) Urine Appearance Cloudy (CLEAR,HAZY) Urine pH 7.5 (5.0-8.0) Urine Specific [place] 1.010 (1.003-1.035) Urine Protein 100mg/dL (NEG,TRACE) Urine Glucose (UA) Negativemg/dL (NEGATIVE) Urine Ketones Negativemg/dL (NEGATIVE) Urine Occult Blood Large (NEGATIVE) Urine Nitrite Negative (NEGATIVE) Urine Bilirubin Negative (NEGATIVE) Urine Urobilinogen Normalmg/dL (NORMAL) Urine Leukocyte Esterase Small (NEGATIVE) Urine RBC 11-50/hpf (0-2) Urine WBC 11-50/hpf (0-5) Urine Epithelial Cells Occasional/hpf (NONE-MOD) Urine Crystals Triple phosphate Urine Bacteria Many/hpf (NONE-FEW) Urine Hyaline Casts None/lpf (NONE) Urine Granular Casts None seen (NONE SEEN) Urine Waxy Casts None seen (NONE SEEN) Urine Red Blood Cell Casts None seen (NONE SEEN) Urine White Blood Cell Casts None seen (NONE SEEN) Urine Mucus None seen (None Seen) Urine Trichomonas None seen (NONE SEEN) Urine Yeast None (NONE SEEN) Urinalysis Comment None Urine Culture Reflexed Indicated Erythrocyte Sedimentation Rate 46mm/hr (0-32) X-Ray Interpretation Xray Interpretation: Patient Name: RAJANI ALSTON MR#: [id number] [place] [facility] [place] Phys: Igor Ivania Wesley Date of Service: 10/21/161908 PROCEDURE: X-RAY CHEST, TWO VIEWS ([id number]) INDICATIONS: cough TECHNIQUE: 2 views of the chest were acquired. COMPARISON: [facility], , XR CHEST 2VW, 09/01/2016, 12:25. FINDINGS: Surgical changes and devices: None. Lungs and pleura: No pleural effusions or pneumothorax. There is an increased peripheral opacity in the right lung base. There are decreased left basilar opacities consistent with progressive resolution of prior pneumonia. Mediastinum: Mediastinal contours are normal. Heart size is normal. Bones and chest wall: No suspicious bony abnormalities. Soft tissues appear unremarkable. IMPRESSION: 1. Increased peripheral opacity in the right lung base suggestive of pneumonia given clinical history. Dictated by: Sulaiman Haines M.D. on 10/21/2016 at 21:09 Approved by: Sulaiman Haines M.D. on 10/21/2016 at 21:10 Re-Eval/Medical Decision Med Decision/Clinical Course 25 year old female with complex medical hx presents for clearance to go to treatment. Mom is present. CEllulitis has resolved. . No sign of sepis at this time. Discharge & Departure Primary Impression: Medical clearance for psychiatric admission Additional Impression: Encounter for medication refill Disposition: Home Additional Instructions: Your labs are improving. Blood cultures are pending. If they return positive, you will be notified by phone. Refilss of gabapentin and lamotrigine and vitamina are provided. If the US shows the clot is still present and blocking, the appropriate medication will be provided. Establish in primary care , consider the residency clinic. The ultrasound still shows a small clot formation. You are being started on apixaban which does not require any bridge with injections or monitoring. The chest x-ray is suggestive of a beginning pneumonia. Will start azithromycin daily for 5 days. Return with any concerns. Referrals: [facility] EDSupervising Provider for APC: Britton Nettles MD copies to: [facility] Francy Costa Oct 21, 2016 19:06
[2016-10-21 19:46] LABS: BASOPHILS % (AUTO) 0.6 % (0-3); EOSINOPHILS % (AUTO) 1.7 % (0-5); MONOCYTES % (AUTO) 6.6 % (4-12); Mean Corpuscular Hemoglobin 28.8 pg (27.0-35.0); Mean Corpuscular Volume 88.7 fL (81-100); NEUTROPHILS % (AUTO) 44.1 % (40-74); Platelet Count 259 bil/L (150-400)
[2016-10-21 20:36] VITALS: BP 112/80; PULSE 103; RESP 16; O2SAT 98
[2016-10-21 20:37] LABS: APPEARANCE,URINE CLOUDY (CLEAR,HAZY); COLOR,URINE YELLOW (YELLOW); PH,URINE 7.5 (5.0-8.0)
[2016-10-21 20:38] LABS: OCCULT BLOOD,URINE LARGE (NEGATIVE); UROBILINOGEN,URINE NORMAL (NORMAL)
--- NOTE | 2016-10-21 21:12 | DRSVH ---
PROCEDURE: X-RAY CHEST, TWO VIEWS ([id number]) INDICATIONS: cough TECHNIQUE: 2 views of the chest were acquired. COMPARISON: [facility], CR, XR CHEST 2VW, 09/01/2016, 12:25. FINDINGS: Surgical changes and devices: None. Lungs and pleura: No pleural effusions or pneumothorax. There is an increased peripheral opacity in the right lung base. There are decreased left basilar opacities consistent with progressive resolut ion of prior pneumonia. Mediastinum: Mediastinal contours are normal. Heart size is normal. Bones and chest wall: No suspicious bony abnormalities. Soft tissues appear unremarkable. IMPRESSION: 1. Increased peripheral opacity in the right lung base suggestive of pneumonia given clinical histor y. Dictated by: Sulaiman Haines M.D. on 10/21/2016 at 21:09 Approved by: Sulaiman Haines M.D. on 10/21/2016 at 21:10
[2016-10-21 21:30] VITALS: BP 112/80; PULSE 103; RESP 16; O2SAT 98
[2016-10-23] MEDS ORDERED: NITR100 PO (10:21)
--- NOTE | 2016-10-26 16:10 | DRSVH ---
CORRECTED ACCESSION/PLACER ON 10/26/16 PROCEDURE: US VENOUS ARM DUPLEX UNILATERAL, RIGHT INDICATIONS: Reported history of right basilic vein thrombus seen at outside institution. TECHNIQUE: Real-time imaging, as well as color and pulse Doppler interrogation, was performed of the right upper extremity deep veins from the inferior neck to the antecubital fossa. COMPARISON: None. FINDINGS: The internal jugular vein, visualized portions of the subclavian vein, axillary, and brach ial veins are free of intraluminal thrombus. Where physically possible, the veins are normally compr essible. Color and pulse Doppler demonstrate normal intraluminal flow, with expected phasicity and p ulsatility. Additional scanning of the cephalic and basilic veins of the superficial system demonstr ate normal compressibility, without thrombus in the cephalic vein. There is a segment of occlusive t hrombus in the proximal to mid basilic vein. IMPRESSION: 1. Segmental occlusive thrombus in the proximal to mid right basilic vein. 2. No evidence of deep venous thrombosis. Findings reported to Francy Costa by the learning technologist on 10/21/16 at 2120 hrs. Dictated by: Sulaiman Haines M.D. on 10/21/2016 at 22:07 Approved by: Sulaiman Haines M.D. on 10/21/2016 at 22:09
== END 2016-10-21 21:30 | disposition home or self-care (01) ==
LOC: SED 17:02
DX: Z04.6 Encounter for general psychiatric examination, requested by authority (principal); Z76.0 Encounter for issue of repeat prescription; J45.909 Unspecified asthma, uncomplicated; F17.200 Nicotine dependence, unspecified, uncomplicated; Z88.2 Allergy status to sulfonamides; Z88.8 Allergy status to other drugs, medicaments and biological substances

== ENCOUNTER 2017-02-16 23:34 | Inpatient (IN) | payer OTHER ==
[~2017-02-16] VITALS: Ht 160 cm; Wt 69.8 kg
[~2017-02-16 23:34] MED LIST changes: +NITR100 PO
[2017-02-16 23:36] VITALS: BP 86/52; PULSE 145; RESP 20; O2SAT 93
--- NOTE | 2017-02-16 23:52 | ED.REPORT ---
HPI-General Illness Date of Service Feb 16, 2017 ED Provider: Maurice Jensen MD Pt is a 26 y/o female w/ a hx of tricuspid MSSA endocarditis, ongoing IVDA ( meth and heroin), septic PE, pneumonia, presenting to the ED c/o dyspnea. The patient was last admitted to [facility] on July 15 2016 and transferred to [facility] on August 06 with diagnosis of MSSA tricuspid endocarditis, septic pulmonary emboli, septic left sternoclavicular joint, pneumonia, and severe sepsis. She was transferred with plan to have debridement of the left sternoclavicular joint likely with resection of the clavicular head and possibly part of the manubrium. At that time she presented to the ED with complaints of chest pain and dyspnea. Today, she is complaining of dyspnea, fever, malaise, and altered mental status. She continues to use IV heroin and methamphetamine, her last use was this afternoon. Nursing Notes Stated Complaint: BREATHING DIFFICULTY Chief Complaint: Substance Abuse Nursing Notes Reviewed: Yes Allergies: Coded Allergies: sulfamethoxazole (Verified Allergy, Intermediate, 10/21/16) serum sickness with arthritis trimethoprim (Verified Allergy, Intermediate, 10/21/16) serum sickness with arthritis Scheduled Gabapentin (Neurontin) 300 Mg Capsule 600 MG PO TID Lamotrigine (Lamotrigine) 200 Mg Tablet 200 MG PO BID Nitrofurantoin Monohyd/M-Cryst (MacroBid) 100 Mg Capsule 100 MG PO BID Ropinirole (Ropinirole) 1 Mg Tablet 1 MG PO HS hydrOXYzine Hcl (HydrOXYzine Hcl) 25 Mg Tablet 25 MG PO BID 1 tablet in the morning and at noon hydrOXYzine Hcl (HydrOXYzine Hcl) 25 Mg Tablet 50 MG PO HS Scheduled PRN Clonidine (Clonidine) 0.3 Mg Tablet 1-2 TAB PO TID PRN PRN For Anxiety Ondansetron (Ondansetron) 4 Mg Tablet 4 MG PO TID PRN PRN For Nausea General Time Seen by MD: 23:50 Chief Complaint Not feeling well Hx Obtained From: Patient Arrived By: Walk-in Sudden in Onset?: No Onset Occurred: 5 - 8 hours ago Symptom Duration: Since onset Severity: Current: No pain currently Severity: Maximum: No pain Recent Healthcare: Previous diagnosis Similar Sx Previous: Yes Past Medical History Past Medical History Notes: RH negative JOÃO 1/18/17: Interpretation Summary No thrombus is detected in the left atrial appendage. The interatrial septum is intact with no evidence for an atrial septal defect. Injection of contrast documented no interatrial shunt. The mitral valve is normal in structure and function. The aortic valve is normal in structure and function. There is a large vegetation or mass on the tricuspid valve. The vegetation is 2.3 x 0.9 cm. There is severe tricuspid regurgitation. The pulmonic valve is not well seen, but is grossly normal. Past Medical History 1. Recurrent UTIs. 2. Ongoing IV drug use with heroin and meth. 3. History of gonorrhea. 4. History of seizure disorder. 5. History of recurrent soft tissue infections. 6. Asthma 7. MSSA tricuspid valve endocarditis 8. Septic pulmonary emboli secondary to endocarditis 9. Septic left sternoclavicular joint secondary to IVDA 10. History of pneumonia Past Surgical History Right sternoclavicular joint aspiration Family History Father at [id number] from lung cancer Smoking History Current Every Day Smoker Social History IV heroin and meth abuse Previous charts state she was homeless and unemployed, not asked during this visit Alcohol Use: Denies alcohol use Drug Use: IV drugs, Meth Other Social History: Local resident Occupation homeless at present no work or school at this time 07/15/2016 Ambulatory Status Independent Review of Systems Full Review of Systems Constitutional: Reports: Fever, Malaise Respiratory: Reports: Shortness of breath Neurologic: Reports: Confusion Complete sys rev & neg: except as marked. Physical Exam Vital Signs Vital Signs Date Time Temp Pulse Resp B/P Pulse Ox O2 Delivery O2 Flow Rate FiO2 02/17/17 01:11 123 18 95/54 96 Nasal Cannula 2 02/17/17 00:30 134 18 98/62 93 Nasal Cannula 2 02/16/17 23:36 37.9 145 20 86/52 93 Room Air Initial VS: Reviewed, Vital signs abnormal Head / Eyes: Atraumatic, Normocephalic ENT: Mucous membranes moist, Conjunctiva normal, No scleral icterus Abdomen / GI: Soft, Non-tender Extremities: Vascular intact, Neuro intact Neurologic: Alert, Oriented, Nonfocal Psychiatric: Mood/affect normal, Behavior normal, Normal thought content General/Constitutional: Awake, Alert, No acute distress, Cooperative, Not toxic appearing Appearance / Presentation: Positive: Ill appearing/not toxic Diffusely mildly edematous Neck: Supple, Full range of motion, No JVD Respiratory / Chest: Breath sounds NL, Breath sounds = bilat, No respiratory distress, No rales, No rhonchi, No wheezing, No retractions, No stridor Cardiovascular: Regular rhythm, Heart sounds NL, No murmurs Heart Rate / Rhythm: Positive: Tachycardia (profound) Skin: Atraumatic, Warm, Dry Areas of petechia where there have been minor trauma over the neck, right breast, blood pressure cuff sites, and IV turnicate sites Multiple track hannon No abscesses Interpretation & Diagnostics Lab Results Interpretation Result Diagram: 02/17/17 0012 02/17/17 0012 Test 02/17/17 00:12 02/17/17 01:18 White Blood Count 15.4th/mm3 (3.8-10.1) Red Blood Count 4.38mil/mm3 (3.90-5.20) Hemoglobin 13.8g/dL (12.0-15.6) Hematocrit 38.0% (35.0-46.0) Mean Corpuscular Volume 86.8fL (81-100) Mean Corpuscular Hemoglobin 31.5pg (27.0-35.0) Mean Corpuscular Hemoglobin Concent 36.3% (32.0-37.0) Red Cell Distribution Width 12.6% (12.3-15.4) Platelet Count 20bil/L (150-400) Neutrophils (%) (Auto) 95% (40-74) Lymphocytes (%) (Auto) 2% (14-46) Monocytes (%) (Auto) 5% (4-12) Eosinophils (%) (Auto) 0% (0-5) Basophils (%) (Auto) 0% (0-3) Band Neutrophils % 7% (1-5) Metamyelocytes % 1% (0-0) Nucleated Red Blood Cells 1/100 WBC (0-24) Hematology Comments Sodium Level 126mEq/L (134-144) Potassium Level 4.3mEq/L (3.5-5.2) Chloride Level 89mEq/L (97-108) Carbon Dioxide Level 13mmol/L (18-29) Blood Urea Nitrogen 78mg/dL (6-20) Creatinine 8.07mg/dL (0.57-1.00) Estimat Glomerular Filtration Rate 9mL/min (>59) Glucose Level 130mg/dL (60-99) Lactic Acid Level 2.6mmol/L (0.4-2.0) Calcium Level 8.4mg/dL (8.5-10.1) Magnesium Level 1.9mg/dL (1.6-2.6) Total Bilirubin 1.0mg/dL (0.0-1.2) Aspartate Amino Transf (AST/SGOT) 73U/L (0-50) Alanine Aminotransferase (ALT/SGPT) 27U/L (0-32) Alkaline Phosphatase 95U/L (25-150) Lactate Dehydrogenase 622U/L (100-190) Troponin T 0.014ug/L (0.0-0.011) Total Protein 6.8g/dL (6.4-8.4) Albumin 3.7g/dL (3.4-5.0) Prothrombin Time 11.7sec (8.1-12.5) Prothromb Time International Ratio 1.09ratio Activated Partial Thromboplast Time 32.9sec (22.8-33.0) Fibrinogen 340mg/dL (157-380) Lab Results Interpretation: PRISCILA, severe thrombocytopenia, elevated LDH, leukocytosis with left shift ECG Interpretation ECG Interpretation: Sinus tachycardia rate 138 Time: 00:03 Interpreted by: ED physician Normal ECG Interpretation: No acute ischemic changes, No change from prior ECGs ABG Interpretation ABG Interpretation: pH ____7.262 - 7.350 7.450 pCO2 ___32.5__ -mmHg 35.0 45.0 pO2 110 -mmHg 69.0 116 HCO3- ___14.2__ -mmol/L 22.0 26.0 ABE __-11.5__ -mmol/L -2.0 2.0 tHb ___11.5__ -g/dL O2Hb ___96.0__ -% COHb ____0.7__ -% MetHb ____0.7__ -% sO2 ___97.4__ -% FIO2 ___32.0__ -% Exam Performed by: Allied health pract Exam Interpreted by: ED physician Indication: Other Acidosis or Alkalosis: Metabolic acidosis X-Ray Chest Interpretation Chest Xray Interpretation: Poor inspiration No definite focal consolidation Radiologist read pending in AM View: Portable, 1 view Interpretation / Wet Read by: Wet read ED physician CT Head Interpretation Conclusion: No acute intracranial findings. Interpreted by Jayesh Vazquez MD Study: Head CT no contrast Interpretation / Wet Read by: Interpret - Radiologist CT Chest Interpretation Conclusion: Numerous peripheral nodular opacities with cavitation in bilateral lungs. Primary consideration is septic emboli of unknown source. Differential includes cavitary metastasis. Interpreted by Jayesh Vazquez MD Study type: Chest CT no contrast Interpretation / Wet Read by: Interpret - Radiologist CT Abd / Pelvis Interpretation Conclusion: 1. Normal appendix. No free air, bowel obstruction, or mesenteric inflammation. 2. Negative for obstructive uropathy. Mild urinary bladder wall thickening is liklely related to underdistention. Correlate with urinalysis if tehre is clinical conern for infection. Interpreted by Jayesh Vazquez MD Study type: Abdominal CT no contrast Interpretation / Wet Read by: Interpret - Radiologist Re-Eval/Medical Decision Med Decision/Clinical Course 26-year-old female known IV drug user with a long history of endocarditis, septic emboli, infected DVT, and infected sternal joints. She presents now with malaise, confusion, tachycardia, and fever. She is found to have an elevated white blood count with a shift to the left, low platelets at 20,000, acute kidney injury with a creatinine of 8.07. Head CT is negative. CT of the chest abdomen and pelvis without contrast shows only multifocal pneumonia which appears to be from septic emboli. She has no heart murmur. Her case was discussed with Dr. Monge who recommended 2 L of saline followed by 100 mg liters per hour. He suggested that her lab abnormalities may be due to hemolytic uremic syndrome and recommended testing haptoglobin and LDH. She was cultured and started on vancomycin and Zosyn. Her case was further discussed with Dr. Gabriel the hospitalist resident. The patient was seen here in the emergency room by the hospitalist service and she will be admitted to the CCU. Source of Hx: Old records Time of Eval: :55 Re-Evaluation/Progress Note: Pt rechecked. Informed pt of need for admission. Pt understands and agrees with plan for admission. All questions addressed. Consultation #1: Referral / Consult Name: Purnima Gabriel DO Consulted With: Hospitalist Call Returned at: 01:28 Statistical Machine Servicer: Agrees with eval, Agrees with plan Note: Consulted with hospitalist. Suggested obtain ABG, order platelets, and consult nephrology. Consultation #2: Referral / Consult Name: Abel Monge DO Consulted With: Nephrology Call Returned at: 01:38 Statistical Machine Servicer: Agrees with eval, Agrees with plan Note: Recommends workup for hemolytic uremic syndrome. States it is safe to give more NS. Consultation #3: Referral / Consult Name: Beau Rowell Consulted With: Hospitalist Call Returned at: 01:55 Statistical Machine Servicer: Will see patient, Agrees with eval, Agrees with plan, Accepts admit Counseled Regarding: Diagnosis, Lab results, Need for admission Discharge & Departure Primary Impression: Severe sepsis Additional Impressions: Thrombocytopenia Acute renal failure Acute renal failure type: unspecified Qualified Code: N17.9 - Acute kidney failure, unspecified Metabolic acidosis IV drug abuse History of bacterial endocarditis Multifocal pneumonia Disposition: ADMITTED TO HOSPITAL Discharge Condition All VS Reviewed: Yes Condition: Improved Referrals: NOPCP (PCP) Crit Care Except Billable Proc Time Spent: 30-74 minutes (65 minutes) Services Performed: Patient management by me, Time spent at bedside, Reviewing test results, Reviewing imaging, Discussing patient care, Documentation in record Critical Care Notes: Critically ill patient with acute renal failure and sepsis secondary to IV drug use. Scribe Attestation Portions of this note were transcribed by Andrade Lama. I, Dr. Jensen personally performed the history, physical exam and medical decision-making; I reviewed and confirmed the accuracy of the information in the transcribed note. Maurice Jensen MD Feb 16, 2017 23:52 ANDRADE LAMA Feb 17, 2017 00:00
[2017-02-17] VITALS (15 sets, daily range): BP systolic 70–122; BP diastolic 49–71; PULSE 109–134; RESP 16–30; O2SAT 92–100
[2017-02-17] MEDS: 0.9% Sodium Chloride 1,000 ML IV SCH ×7 (00:30→22:28)
[2017-02-17 01:04] LABS: Mean Corpuscular Hemoglobin 31.5 pg (27.0-35.0); Mean Corpuscular Volume 86.8 fL (81-100)
[2017-02-17 01:05] LABS: Platelet Count 20 bil/L (150-400)
[2017-02-17] MEDS ORDERED: 0.9% Sodium Chloride 1,000 ML IV ONE ×5 (01:05→21:50)
[2017-02-17 01:06] LABS: BASOPHILS % (AUTO) 0 % (0-3); EOSINOPHILS % (AUTO) 0 % (0-5); MONOCYTES % (AUTO) 5 % (4-12); Magnesium 1.9 mg/dL (1.6-2.6); NEUTROPHILS % (AUTO) 95 % (40-74)
[2017-02-17 01:07] LABS: TROPONIN T 0.014 ug/L (0.0-0.011)
[2017-02-17] MEDS ORDERED: Piperacillin-Tazo 3.375 Gm Inj 3.375 GM in Dextrose 5% Minibag Plus 50 ML IV ONE (01:10)
[2017-02-17 01:25] LABS: INR 1.09 ratio
[2017-02-17] MEDS ORDERED: Vancomycin Inj 1,000 MG in IV Premix 1 EACH IV ONE (01:30)
--- NOTE | 2017-02-17 02:24 | ABG ---
DateTimeAnalyzed 02:18:00 -_ pH ____7.262 - 7.350 7.450 pCO2 ___32.5__ -mmHg 35.0 45.0 pO2 110 -mmHg 69.0 116 HCO3- ___14.2__ -mmol/L 22.0 26.0 ABE __-11.5__ -mmol/L -2.0 2.0 tHb ___11.5__ -g/dL O2Hb ___96.0__ -% COHb ____0.7__ -% MetHb ____0.7__ -% sO2 ___97.4__ -% FIO2 ___32.0__ -% Drawn By MM - Date/Time Notified____ 02:24:00 -_ Spontaneous_RR ___20.0__ -b/min Liter_Flow ____3.0__ -L/min Oxygen Device 1 __CANNULA - Notified By MM - Notified Whom DR LEIBRAND - B 757 -mmHg tO2 ___15.6__ -Vol% Mitul test _Positive -
[2017-02-17] MEDS ORDERED: Cefepime 1,000 MG in Dextrose 5% Minibag Plus 50 ML IV ONE (02:30)
[2017-02-17] MEDS ORDERED: Polyethylene Glycol (PEG) 17 Gm Powder PO PRN (03:45)
[2017-02-17] MEDS ORDERED: Alum-Mag Hydrox-Simeth 30 mL Suspension PO PRN (03:45)
[2017-02-17] MEDS ORDERED: Albuterol 2.5 mg/3 mL Inhalation Solution NEB ONE (03:50)
[2017-02-17] MEDS ORDERED: Albuterol 2.5 mg/3 mL Inhalation Solution NEB PRN (03:50)
[2017-02-17 03:54] LABS: APPEARANCE,URINE CLOUDY (CLEAR,HAZY); COLOR,URINE DARK YELLOW (YELLOW); OCCULT BLOOD,URINE LARGE (NEGATIVE); UROBILINOGEN,URINE NORMAL (NORMAL)
[2017-02-17] MEDS: 0.9% Sodium Chloride 250 ML IV SCH ×2 (04:10→22:28)
--- NOTE | 2017-02-17 04:44 | PCM.HPMED ---
Subjective Date of Service Feb 17, 2017 Primary Provider: Admitting Physician: Purnima Gabriel DO Primary Care Physician: Martell Attending Physician: Purnima Gabriel DO Admit Status: From the Emergency Department Chief Complaint: Dyspnea History of Present Illness: Pt is a 26 y/o female w/ a hx of tricuspid MSSA endocarditis, ongoing IVDA ( meth and heroin), septic PE, pneumonia, presenting to the ED c/o dyspnea. The patient was last admitted to [facility] on July 15 2016 and transferred to [facility] on August 06 with diagnosis of MSSA tricuspid endocarditis, septic pulmonary emboli, septic left sternoclavicular joint, pneumonia, and severe sepsis. At that time she presented to the ED with complaints of chest pain and dyspnea. Today, she is complaining of dyspnea, fevers, chills, malaise , and altered mental status. She also reports recent diarrhea 2 weeks ago which lasted for several days, as well as left shoulder pain and a mild cough with minimal green sputum and sore throat. She denies dysuria, wheezing, chest pain, abdominal pain, vomiting, bloody stool. She continues to use IV heroin and methamphetamine, her last use was this afternoon. In the ED, temp was 37.9, HR 145, BP 86/52, O2 [address] head showed no acute intracranial process. WBC was 15.4 with 95% neutrophils, Hb 13.9, Hct 86.8, platelets were 20. Giant platelets were seen, with no schistocytes. Fibrinogen was 340. INR 1.09. Cr was 8.07. Lactic acid 2.6. LDH 622. CT chest/ abd/pelvis showed numerous peripheral nodular opacities with cavitation in bilateral lungs, suspicious for septic emboli. CXR showed right lower lobe infiltrate. Review of Systems: Comprehensive review of systems conducted and was negative except for the pertinent positives listed above. Allergies Coded Allergies: sulfamethoxazole (Verified Allergy, Intermediate, 02/17/17) serum sickness with arthritis trimethoprim (Verified Allergy, Intermediate, 02/17/17) serum sickness with arthritis Home Medications Clonidine 0.3 - 0.6 mg TID PRN anxiety Gabapentin 600 mg TID Hydroxyzine 25 mg BID in AM and noon, 50 mg qhs Lamotrigine 200 mg BID Ondansetron 4 mg TID PRN Ropinirole 1 mg qhs PMH Recurrent UTIs. Ongoing IV drug use with heroin and meth. History of gonorrhea. History of seizure disorder. History of recurrent soft tissue infections. Asthma MSSA tricuspid valve endocarditis Septic pulmonary emboli secondary to endocarditis Septic left sternoclavicular joint secondary to IVDA History of pneumonia Surgical History Right sternoclavicular joint aspiration Family History Father at [id number] from lung cancer Mother with kidney stones Social History Hx Alcohol Use: No (none) Hx Substance Use: Yes (Heroin, pot, meth) Smoking Status: Current Every Day Smoker Exam Vital Signs Vital Sign - Last Date Time Temp Pulse Resp B/P Pulse Ox O2 Delivery O2 Flow Rate FiO2 02/17/17 01:11 123 18 95/54 96 Nasal Cannula 2 02/16/17 23:36 37.9 Intake and Output 02/16/17 02/16/17 02/17/17 Cumulative From/Thru 14:58 22:58 06:58 02/16/17 23:36 - 02/17/17 00:29 Intake Total 1000 ml 1000 ml Balance 1000 ml 1000 ml Intake IV Total 1000 ml 1000 ml Exam General: Alert, Oriented X3, Cooperative, appears ill and anxious Head: Normocephalic, atraumatic. External ears normal. Eyes: PERRLA, EOMI. Anicteric sclerae. Mouth: Mouth normal, Mucous membranes dry Neck: Neck supple with full range of motion. Chest& Lungs: Wheezes bilaterally Cardiovascular: Tachycardic. Systolic murmur auscultated. GI: Non-tender, Non-distended, No masses, Normoactive bowel tones, Soft : larios in place Skin: Track hannon present. Petechiae on arms and right breast. Extremities: No cyanosis/clubbing/edema bilaterally Neurological: Grossly neurologically intact. Normal speech Lymph: no supraclavicular or cervical lymphadenopathy MSK: decreased active range of motion left shoulder Lab and Diagnostics Result Diagram: 02/17/17 0012 02/17/17 001 Assessment & Plan Pt is a 26 y/o female w/ a hx of tricuspid MSSA endocarditis, ongoing IVDA ( meth and heroin), septic PE, pneumonia, presenting to the ED c/o dyspnea. Acute sepsis. Present on admission. - Pt presents with temp 37.9, HR 145, BP 86/52, WBC 15.4 with left shift, lactic of 2.6. Likely multifactorial. She has a history of UTIs, and UA shows 6- 10 WBCs with moderate bacteria, small leukocyte esterase. Given her IVDA and history of septic PE and endocarditis, bacteremia and endocarditis are high on the differential, especially considering likely multifocal septic pulmonary emboli on chest CT. She also complains of green sputum and flu-like symptoms over the last week, so ruling out pneumonia. LFTs also mildly elevated, but likely due to sepsis. Will monitor CMP. - Blood cultures - Sputum cultures - Urine cultures - Cefepime and linezolid - Strep pneumo/Legionella antigens - Respiratory viral PCR - Procalcitonin ordered - NS @ 100 ml/hr - Monitor CMP Possible septic pulmonary emboli, acute. Present on admission. - CT chest showed possible septic pulmonary emboli bilaterally(reviewed by admitting team on admission). High suspicion for endocarditis given her history. Heart murmur heard on exam. - Antibiotics and cultures as above - Echocardiogram in the AM, ordered - Consult Dr. Lee in the AM Acute kidney injury. Present on admission. - Likely secondary to sepsis and hypotension. Cr increased from 1.08 in October to 8.07. Dr. Monge recommends fluid resuscitation for now and will see in AM. - Dr. Monge of Nephrology has been consulted. We appreciate his input. - NS @ 100 ml/hr - Avoid nephrotoxic agents. Severe thrombocytopenia, acute. Present on admission. - Pt presents with platelets of 20. Last plt count was 259 on 10/21/16. Presents with bruising and petechiae. Reviewed med list, no meds suspicious for drug induced ITP. Suspicion for hemolysis given elevated LDH of 622, but may be elevated due to sepsis. However, bilirubin was normal at 1.0 and Hb was normal at 13.8. Will recheck CBC and CMP in AM. DIC unlikely as fibrinogen and INR, PT/ PTT normal. TTP also less likely because of normal parameters. Suspect ITP given acutely low platelets and normal bleeding parameters. Pt not actively bleeding but at risk of bleed as she may need a central line in the near future. Will transfuse platelets. - Direct Berenice ordered - Reticulocyte count ordered - Peripheral smear - Haptoglobin - Repeat CBC in AM - Anti-Platelet antibodies ordered - Platelet infusion ordered Acute dyspnea. Present on admission. - Pt presents septic with likely septic pulmonary emboli. Physical exam reveals bilat wheezes. She also has a history of asthma. - Albuterol nebs q6h PRN Left shoulder pain, acute. Present on admission. - Pt has history of septic joint of the left sternoclavicular joint. Considering her history, a contrast CT of the left shoulder should be done once her PRISCILA has improved. Anion gap metabolic acidosis, acute. Present on admission. - Secondary to lactic acidosis and PRISCILA. Gap 24. pH 7.26, pCO2 32.6, pO2 110, bicarb 14.2. - Trend lactic acid q2 until normal - Treat underlying causes - Monitor anion gap Hyponatremia, acute. Present on admission. - Na 126 on admission. Pt receiving NS @ 100 ml/hr - Monitor CMP History of IV drug abuse. - Pt has hx of IVDA, last used recently. Last Hep and HIV panels in 2015 were negative. Will reorder HIV given low platelets. - HIV panel ordered - Social work consult History of tobacco use. - Nicotine patch ordered History of seizure disorder. - Continue home lamotrigine Other Chronic Conditions Recurrent UTIs. Ongoing IV drug use with heroin and meth. History of gonorrhea. History of recurrent soft tissue infections. Asthma MSSA tricuspid valve endocarditis Septic pulmonary emboli secondary to endocarditis Septic left sternoclavicular joint secondary to IVDA VTE Prophylaxis: Other (Pt has thrombocytopenia - no DVT prophylaxis for now.) Resuscitation Status: CPR: Attempt Resuscitation Attending Statement The patient was seen and examined together with house staff on 02/17/2017 and I agree with the history, exam and plan as outlined in the note above. Beau Rowell Feb 17, 2017 03:06 Purnima Gabriel DO Feb 17, 2017 06:20
--- NOTE | 2017-02-17 05:10 | NUR ---
Admission Pt admitted to CCU room 2012 on 02/17/17 0323 Pt arrived by ian with ED Nurse. Pts vitals HR: 120 ST, BP: MAP>65, Temp: Febrile, RR:20-30, SpO2 100% on 3L NC. Pt has PIV infusing ABX upon arrival to the unit. Per report blood cultures were obtained and patient was given Vancomycin in the ED. Critical labs include Creatinine, WBC, Platelets, and a positive lactic acid of 2.6, Procalcitonin 64. Pt initially reported to hospital with SOB. Per report, the patient last used Meth & Heroine yesterday (02/16) around noon. Per Hospital IV Chemical Dependency Population Protocol, I informed security of the presence of this patient, no visitors are allowed and sign on door for visitors to check at nurses station, belongings not searched but were locked in the patients closet. Sharps container was removed by security. Nasal MRSA and viral swabs were collected and sent to lab. Neff placed and urine specimen collected and sent to lab.[id number] Lactate pending. Plan for ECHO tomorrow, ID consult, and possibly PICC line placement due to poor venous access and hard blood draws. Consent for blood product administration signed by Dr. Martinez and patient. Platelets infusing. Pt seen from window sitting quietly. When staff comes into room patient breaks down in tears. Pt stating non-specific generalized pain. When staff leaves she is once again seen sitting quietly from nurses station window. Dr. Martinez also saw this. Pt placed on contact precautions.
[2017-02-17 05:12] LABS: Mean Corpuscular Hemoglobin 31.3 pg (27.0-35.0); Platelet Count 19 bil/L (150-400)
[2017-02-17 05:26] LABS: NEUTROPHILS % (AUTO) 86 % (40-74)
[2017-02-17 05:27] LABS: BASOPHILS % (AUTO) 0 % (0-3); EOSINOPHILS % (AUTO) 0 % (0-5); MONOCYTES % (AUTO) 4 % (4-12)
--- NOTE | 2017-02-17 08:19 | DRSVH ---
PROCEDURE: CT BRAIN WITHOUT CONTRAST ([id number]) INDICATIONS: confusion TECHNIQUE: Noncontrast 4.5 mm thick angled axial sections acquired from the foramen magnum to the vertex, with c oronal reformats. COMPARISON: [facility], CT, CT BRAIN WO CON, 07/31/2016, 0:56. FINDINGS: Image quality: Excellent. CSF spaces: Basal cisterns are patent. No extra-axial fluid collections. Ventricles are normal in size and shape. Brain: No intracranial hemorrhage, mass, or mass effect. De La Garza-white matter interface is preserved. Skull and face: Calvarium and visualized facial bones are intact, without suspicious lesions. Sinuses: Visualized sinuses and mastoids are clear. IMPRESSION: 1. No acute intracranial abnormality. Dictated by: Sulaiman Haines M.D. on 02/17/2017 at 8:16 Approved by: Sulaiman Haines M.D. on 02/17/2017 at 8:17
[2017-02-17] MEDS ORDERED: Cefepime Inj 2,000 MG in Dextrose 5% Minibag Plus 100 ML IV SCH (08:30)
[2017-02-17] MEDS ORDERED: Heparin 5,000 Unit/mL Inj SUBQ SCH (08:30)
[2017-02-17] MEDS ORDERED: Vancomycin Dose per Pharmacist XX SCH ×2 (08:30)
--- NOTE | 2017-02-17 08:39 | DRSVH ---
PROCEDURE: CT CHEST, ABDOMEN AND PELVIS WITHOUT CONTRAST ([id number]) INDICATIONS: Sepsis, PRISCILA, thrombocytopenia TECHNIQUE: After the administration of oral contrast, 5 mm thick sections acquired from the lung apices to the s ymphysis pubis. 5 mm thick coronal and sagittal reformats acquired, with additional 7 mm coronal MIP reformats through the lungs. For radiation dose reduction, the following was used: automated expos ure control, adjustment of mA and/or kV according to patient size. COMPARISON: [facility], CT, CT CHEST WO CON, 08/03/2016, 9:44. FINDINGS: Image quality: There is mild motion artifact. CHEST: Lungs and pleura: There are multiple bilateral cavitary nodules with irregular margins in a periphera l distribution in the lungs. These are new in distribution compared to the prior study, with areas o f scarring demonstrated corresponding to the previously resolved cavitary lesions from prior septic e mboli. New lesions are also consistent with septic emboli. No pleural effusions or pneumothorax. C entral and peripheral airways are patent are normal in caliber. Mediastinum: Heart size is normal. No pericardial effusion. There are multiple mildly prominent massey bcentimeter mediastinal lymph nodes measuring up to 0.9 cm in short axis which are nonspecific but li nena reactive. Thoracic aorta and central pulmonary arteries are normal in size. Esophagus is miguelangel l in caliber. No hiatal hernia. Chest wall: No axillary or supraclavicular adenopathy by size criteria. Thyroid gland demonstrates small indistinct nodules bilaterally. ABDOMEN: Solid organs: Liver and spleen are normal in size. Gallbladder appears within normal limits without calcified gallstones. Pancreas is normal in contours. No adrenal nodules. The kidneys demonstrate hydronephrosis. There is a slightly edematous appearance of the right kidney with minimal right per inephric stranding. No perinephric fluid collections. No renal stones. Peritoneum and bowel: Small and large bowel loops are normal in caliber and wall thickness. No free fluid or air. Nodes and vessels: No retroperitoneal or mesenteric adenopathy by size criteria. Aorta and inferior vena cava are normal in size. Miscellaneous: No ventral hernias. PELVIS: Genitourinary: Bladder wall thickness is slightly prominent likely due to incomplete distention. No calcified bladder stones. Miscellaneous: No inguinal hernias or adenopathy. Bones: No suspicious bony lesions. No vertebral body compression fractures. IMPRESSION: 1. Multiple bilateral cavitary lesions in the lungs consistent with recurrent septic emboli. The di fferential for these imaging findings includes inflammatory processes as well as metastatic disease b ut these are less likely given patient's prior history of septic emboli. 2. Slight asymmetric appearance of the right kidney with minimal perinephric stranding. However, ev aluation for pyelonephritis is limited in the absence of intravenous contrast. Recommend correlation clinically. There is no hydronephrosis. 3. Mildly prominent bladder wall thickness likely due to incomplete distention. Recommend correlati on with urinalysis. Dictated by: Sulaiman Haines M.D. on 02/17/2017 at 8:17 Approved by: Sulaiman Haines M.D. on 02/17/2017 at 8:35
--- NOTE | 2017-02-17 08:54 | DRSVH ---
PROCEDURE: X-RAY CHEST ONE VIEW, PORTABLE ([id number]) INDICATIONS: tacy, SHORT OF BREATH TECHNIQUE: One view of the chest was acquired. COMPARISON: [facility], CR, XR CHEST 1VW (PORTABLE), 07/16/2016, 12:31. FINDINGS: Surgical changes and devices: None. Lungs and pleura: Diffuse patchy air space opacities present suspicious for bilateral pneumonia. Mediastinum: Mediastinal contours appear normal. Heart size is normal. Bones and chest wall: No suspicious bony lesions. Overlying soft tissues appear unremarkable. IMPRESSION: Diffuse bilateral patchy air space opacities suspicious for pneumonia. Dictated by: Delon Pelayo RRMaryjane Interpreted: Jose Enrique York MD on 02/17/2017 at 8:53 Transcribed by: BOOM on 02/17/2017 at 8:53 Approved by: Jose Enrique York M.D. on 02/17/2017 at 10:22
[2017-02-17] MEDS ORDERED: MEROPENEM IV ONE (09:30)
[2017-02-17] MEDS ORDERED: DEXTROSE 5% IV ONE (09:30)
--- NOTE | 2017-02-17 09:45 | CONS ---
[address] [address] CONSULTATION REPORT PATIENT: RAJANI ALSTON : 1990 MR#: [id number] ADMIT: 02/17/2017 JOB ID: [id number] I thank Dr. Lynn for this timely consult. DATE OF SERVICE: 02/17/2017 REASON FOR CONSULTATION: Septic shock, septic pulmonary emboli, acute renal failure, and scabies in a young IV drug user. HISTORY OF PRESENT ILLNESS: The patient is an unfortunate 26-year-old woman known to me from a prolonged admission, which started just after 2015. At that time, she was admitted with fever, chills, and MSSA bacteremia. During that admission, she prove to have tricuspid endocarditis as well as multiple septic pulmonary emboli. Her endocarditis and septic emboli improved with appropriate long-term antibiotics, but she had a worsening septic left sternoclavicular joint which eventually required transfer to [facility] where CT surgery was available for possible debridement. They eventually decided not to debrided and just kept her on a very long course of antibiotics intravenously and her sternoclavicular joint eventually settled down, and she returned to her normal state of reasonable health. She then entered a drug rehab program where she was able to stay off meth and heroin by the IV route for about four months. Starting about six or seven days ago she relapsed and began using intravenous drugs once again. She reported that she became extremely weak and tired over several days and had a wide variety of complaints. In association with this weakness. She tells me that she believes she got sick the day before she relapsed in terms of IV drug use, but I cannot of course confirm that. Her prominent complaints including fevers, chills, bilateral chest pain, but especially on the left made worse with deep inspiration. Some dry cough, shortness of breath, diminished urine output with dysuria. Itching on the extremities especially around the ankles and wrists and the belt line as well as profound fatigue. She spent an unspecified period of time just lying in bed because of this worsening febrile illness and was eventually transported by friends apparently to the ER because of her profound weakness, fever, shortness of breath, and chest pain. Overnight, she was admitted to the ICU because of hypotension as well as tachycardia and acute renal failure. She has remained off the ventilator and currently awake, reasonably alert and able to supply some history though as shown above the history is rather diffuse in terms of the many complaints she currently reports. PAST MEDICAL HISTORY: 1. Longstanding IV drug use with methamphetamine heroin. 2. Tricuspid valve endocarditis with pulmonary emboli and septic left sternoclavicular joint June 2016. 3. Gonorrhea. 4. Seizure disorder. 5. Recurrent skin and soft tissue infections related to intravenous drug use. SOCIAL HISTORY: The patient is a cigarette smoker who injects heroin and meth. She is a nondrinker. She is unemployed and basically homeless. Stays with friends. She has a 2-1/2-year-old child who is being raised by her mother. FAMILY HISTORY: Negative for TB in first and second-degree relatives. REVIEW OF SYSTEMS: The patient reports that she has had some degree of headache, but no photophobia or trouble with her vision. She has not been confused that she is aware of, though she has been lethargic at times. She denies any significant sore throat or trouble swallowing. She has a bit of a dry cough, but not much. She notes she is short of breath and it has been going on for several days and she has rather severe pleuritic chest pain more on the left than the right. She is not having substernal chest pain. She has had some nausea, but no vomiting. She reports on and off she has had diarrhea. She also notes diminished urine output with dysuria. She has itching around her wrist, ankles, and belt line. She is not aware of anybody else who is itching however. She has had no troubles with her sternoclavicular joint recently nor with any other joints. Neurologically she denies any focal weakness. Remainder of the review of systems is negative. PHYSICAL EXAMINATION: Reveals a moderately ill young woman who has an erythrodermic rash on her anterior chest as well as her back. She is awake, alert, and able to give some history, though she is a bit lethargic, but she is clearly oriented x3. She is lying supine in her ICU bed. She is not receiving vasopressor agents, but her blood pressure is hovering right around 90/60. Current temperature 37.4, last night in the ER 37.9. Pulse is currently 120 to 130 sinus. Respiratory rate is around 15-20, blood pressure most recently 101/64, but there have been blood pressures as low as the upper 80s over the 40s recorded during the night. She is receiving 2 L nasal prongs and on that basis saturating very well. Examination of the head reveals no trauma. The eyes are without conjunctival hemorrhages or scleral icterus. The nose looks normal. Oral cavity without thrush, hairy leukoplakia, or pharyngitis. Neck without adenopathy and supple. Her lungs are notable for some scattered rales throughout both lung sky, but these are quite focal in terms of their location. There is no sense that she has congestive failure at this point by my exam. Cardiac tones notable for tachycardia without murmurs or rubs. The abdomen is soft, tender in the left upper quadrant, but no masses palpated. There is no hepatomegaly. There is no ascites. The genitalia appears normal. She has a Neff catheter at this point, draining moderate amounts of clear yellow urine. There is no evidence of synovitis in the sternoclavicular joints bilaterally appear normal. The patient is neurologically intact with reasonably good strength throughout. Skin exam is notable for scattered papules on the anterior surface of the lower extremities as well as around the ankles, the hands, wrist, and around the belt line. LABORATORY DATA: The patient's labs are notable for white blood count 15,000 in the ER, now 9000. There is a pronounced left shift without white count including heavy bandemia. Platelet count is only 19,000 this morning. Creatinine was 7.6. Lactic acid 2.5 initially, now 2.0. AST is 169, ALT 38, alk phos 72. Total CPK was done and was 124. Procalcitonin an impressive 64. Urinalysis 6-10 white cells, 11-50 red cells. Toxicology not done on this admission. Prior admissions we noted that the patient is negative for hepatitis C and negative for HIV. We repeated the HIV here today. Urine Legionella and pneumococcal antigens are negative. Micro studies include positive blood cultures for MSSA from June to July. The repeats are pending from last night. Of course they are not done yet. Respiratory viral PCR is positive for bryant virus. A MRSA screen is already back and negative. The CT scan was carefully reviewed and discussed with Radiology. It shows innumerable septic pulmonary emboli which are largely new from the crop of septic pulmonary emboli she had back in June. There is no obvious lesions of the kidneys or liver. A brain CT was done and was negative, and I have personally reviewed these films. IMPRESSION: This is an unfortunate woman who was here for prolonged period last winter with tricuspid valve methicillin sensitive Staphylococcus aureus endocarditis with septic pulmonary emboli as well as a septic sternoclavicular joint on the left. She now is readmitted with a remarkably similar process. Her CT shows multiple cavitary lesions which would be entirely consistent with a fresh tricuspid valve endocarditis. In addition, the patient has evidence of bryant virus as indicated prior positive PCR and what I believe is scabies as indicated by this very pruritic skin rash, which she has had for a few days. Her acute renal failure and thrombocytopenia are worrisome. It is notable that during her last admission she had acute renal failure and this could be on the basis of hypotension, dehydration, or perhaps endocarditis with antibody antigen deposition. RECOMMENDATIONS: 1. I would DC her current antibiotics which include vanc, linezolid, and cefepime. 2. Will start her on ceftaroline and meropenem until we have back definitive micro identification, though I suspect this will be MSSA again. 3. Permethrin will be prescribed for what appears to be scabies. 4. The patient will placed in droplet isolation for bryant virus in strict contact isolation for probable scabies. 5. Gonorrhea studies will be ordered. 6. Will continue to very closely follow this complex patient with you going forward. 7. This case discussed with Dr. Barrera as well as the bedside nurses and the ICU team. Thank you very much.
[2017-02-17] MEDS: hydrOXYzine Pamoate 25 mg Capsule PO SCH ×2 (10:00→13:37)
[2017-02-17] MEDS: lamoTRIgine 100 mg Tablet PO SCH ×2 (10:01→20:55)
--- NOTE | 2017-02-17 10:29 | NUR ---
NUTRITION ASSESSMENT: ASSESS: Pt is a 26yo F admitted to CCU for sepsis, PRISCILA and endocarditis. Pt has history of IVD abuse. Pt reported profound weakness for the last week so she likely had poor PO intake prior to admit. She is on a general diet. No PO yet. ID and nephrology are involved. PMHX: endocarditis, IVDA (meth and heroine), PE, PNA LABS: Reviewed. Na 129, Cl 93, CO2 14, Bun 78, music grapher 7.59, glu 120, lactic acid 2.5, Ca 7.4, AST 169, ALT 38, Alb 3.1 MEDS: Reviewed. GI: 0 BM yet SKIN: rash on arms and right breast. CURRENT WTS: 70.3kg, BMI 27.5kg/m2, IBW: 52.3kg DIET: General, no PO yet EST. NEEDS: PRISCILA Kcals: 1760-2110kcal/day (25-30kcal/kg) Pro: 55-70g/day (.8-1.0g/kg) NUTRITION DIAGNOSIS: 1.) Inadequate oral intake related to chronic disease as evidence by reported weakness prior to admit and history of endocarditis and IVD use. NUTRITION INTERVENTION: 1.) Will monitor for PO intake/tolerance MONITOR / EVAL: PO, wt, GI, labs, POC, nutrition status. Will continue to monitor per moderate nutrition risk guidelines
[2017-02-17] MEDS: CEFTAROLINE IV SCH ×4 (11:47→19:51)
[2017-02-17] MEDS: DEXTROSE IV SCH ×4 (11:47→19:51)
[2017-02-17] MEDS ORDERED: Meropenem Inj 1,000 MG in 0.9% Sodium Chloride 100 ML IV ONE (12:50)
--- NOTE | 2017-02-17 12:51 | CONS ---
[address] [address] CONSULTATION REPORT PATIENT: RAJANI ALSTON : 1990 MR#: [id number] ADMIT: 02/17/2017 JOB ID: [id number] DATE OF SERVICE: 02/17/2017 RENAL CONSULTATION: HISTORY OF PRESENT ILLNESS: The patient is a rather unfortunate 26-year-old white female who was admitted to [facility] for acute endocarditis and acute kidney injury. Renal consultation is being sought for further evaluation and management of her acute kidney injury. I am quite familiar with the patient as I followed her about eight months ago during a hospitalization for endocarditis and acute kidney injury. At that time she had developed acute kidney injury which eventually resolved. 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 There was also evidence of a sternoclavicular infection. She was eventually transferred down to [place], however this remitted spontaneously without further surgical intervention. The etiology of her endocarditis was a longstanding history of IV drug abuse with methamphetamines, cocaine, and heroin. She states that she had been clean until several weeks ago when she relapsed and has been on a binge since that time. For the last week or so she states she has had recurrent nausea, vomiting, decreased oral intake, fever, chills, diffuse nonfocal abdominal pain, and diffuse arthralgias. She denies any open ulcerations or skin rashes, but does relate some decreased urination. She denies taking any nonsteroidal anti-inflammatories or herbal preparations. In the emergency department her creatinine was 8 and I was consulted by the emergency department doctor. My concern was that her platelet count was 18,000 and I asked him to order a haptoglobin and an LDH. She also has received some IV fluid, with some improvement in her renal function this morning. Her creatinine has decreased to 7.59. She denies a history of any prior hepatitis and her previous serologies have been negative, history of syphilis, or skin-popping. 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 PAST SURGICAL HISTORY: Remarkable only for a sternoclavicular joint aspiration. ALLERGIES: BACTRIM. SOCIAL HISTORY: She states that she uses tobacco on a regular basis along with marijuana, heroin, methamphetamine, and occasionally cocaine. She denies the use of alcohol. FAMILY HISTORY: Remarkable for lung cancer and renal lithiasis. MEDICATIONS: She was not on any medications prior to admission, but in the past she has been on clonidine, gabapentin, hydroxyzine, Lamictal, and . REVIEW OF SYSTEMS: As detailed above. Otherwise is noncontributory. PHYSICAL EXAMINATION: Revealed a well-developed, somewhat somnolent, 26-year-old white female who was alert and oriented, though she seemed to have difficulty with some questions. Her temperature was afebrile. Her blood pressure was 100/64 with a heart rate of 120. HEENT examination is unremarkable. Sclerae, cornea, conjunctiva, pupils, and extraocular muscles were within normal limits. Neck is supple, without adenopathy, thyromegaly, or jugular venous distention. Lungs showed scattered rhonchi in both lung sky. Heart was hyperdynamic, with a grade 3/6 harsh holosystolic murmur with a questionable diastolic component. This was best noted at the left sternal border. Abdomen was soft, with some hepatic fullness and tenderness in both right upper and left upper quadrants. There was no free fluid wave noted. Extremities did not show any evidence of any clubbing, cyanosis, edema, Janeway lesions, Osler's nodes, or half and half nails. Skin turgor was good. There were some excoriations in the left shoulder and left breast area. There were no purpura or petechial rashes noted. LABORATORY EXAMINATION: On admission her white count was 9.9, hemoglobin of 12.8, hematocrit of 36.0. Red cell indices were normal. Platelet count was 19,000. There was 86% neutrophils with six bands and one metamyelocyte and one nucleated RBC. I have personally reviewed her peripheral smear and there were rouleaux formation noted with what appeared to be several scattered schistocytes. Her sed rate was 9. Haptoglobin is pending at time of this dictation. Her sodium is 129, potassium 4.3, chloride of 93, bicarbonate 24, BUN and creatinine were 78 and 7.59. Lactic acid was 2.2 and her LDH was significantly elevated at 622. Her AST and ALT were elevated. A direct Berenice was negative. Urinalysis obtained upon admission, and once again repeated and personally reviewed by me, showed a specific gravity 1.015, pH was 5. Tests for occult blood, leukocyte esterase, and protein were positive. There were greater than 50 RBCs per high-power field and 6-10 WBCs per high-power field. There were scattered granular casts but no red cell casts or white cell casts were noted. IMAGING: A CT scan of the abdomen was remarkable for some paranephric stranding and evidence of cavitary lesions in the lungs. IMPRESSION: 1. Acute kidney injury with acute tubular necrosis secondary to dehydration, endocarditis, possible hemolytic uremic syndrome versus thrombotic thrombocytopenic purpura (TTP). 2. Pyelonephritis. 3. Severe thrombocytopenia. 4. Non-anion gap metabolic acidosis. RECOMMENDATION: 1. I would like to continue IV hydration with normal saline as is written. Dr. Lee from Infectious Disease is seeing the patient and I will defer to his recommendations as far as antibiotic therapy. In the meantime I would like to get a C3, C4, sed rate, and HELEN, along with an [id number] titer. I would also be interested in seeing what the haptoglobin level shows. 2. I would like to continue her IV fluids and we need to continue to follow her intake, output, and lab values. Once again, I would like to thank you for allowing me to participate in the care of this rather unfortunate patient. I will be following her closely with you.
--- NOTE | 2017-02-17 12:53 | PCM.PNMED ---
Subjective Date of Service Feb 17, 2017 Subjective She feels a little short of breath, no cough. No fevers or chills. She does have malaise. She denies any abdominal pain. No difficulty with vaginal discharge but she is having menstrual bleeding. She denies any diarrhea. No pain over her joints other than the right shoulder is somewhat sore but she does have normal range of motion. No interval overnight events. Exam Vital Signs Vital Sign - Last Date Time Temp Pulse Resp B/P Pulse Ox O2 Delivery O2 Flow Rate FiO2 02/17/17 09:50 126 20 96 Room Air 02/17/17 04:18 2.00 02/17/17 03:23 37.4 101/64 Intake and Output 02/16/17 02/16/17 02/17/17 Cumulative From/Thru 15:00 23:00 07:00 02/16/17 23:36 - 02/17/17 05:29 Intake Total 1892 ml 1892 ml Output Total 290 ml 290 ml Balance 1602 ml 1602 ml Intake Oral 200 ml 200 ml IV Total 1692 ml 1692 ml Output Urine Total 290 ml 290 ml # Bowel Movements 0 0 Exam Alert and oriented -3, no distress. Fluent speech. Chronically ill appearance. Anicteric sclera. Lungs are clear with normal rate and effort Heart is regular without murmur gallop or rub Abdomen soft nontender, flat Extremities are free of edema. Skin is free of rash or lesions. Exception of some track hannon on both arms. She also has multiple excoriations on her breast bilaterally. IVs and Medications Medications Reviewed: Medications were reviewed in detail Lab and Diagnostics Result Diagram: 02/17/17 0500 02/17/17 0500 Assessment & Plan Pt is a 26 y/o female w/ a hx of tricuspid MSSA endocarditis, ongoing IVDA ( meth and heroin), septic PE, pneumonia, presenting to the ED c/o dyspnea. Acute sepsis. Present on admission. Source is staph and strep septicemia likely secondary to tricuspid valve endocarditis. - Pt presents with temp 37.9, HR 145, BP 86/52, WBC 15.4 with left shift, lactic of 2.6. Likely multifactorial. She has a history of UTIs, and UA shows 6- 10 WBCs with moderate bacteria, small leukocyte esterase. Given her IVDA and history of septic PE and endocarditis, bacteremia and endocarditis are high on the differential, especially considering likely multifocal septic pulmonary emboli on chest CT. She also complains of green sputum and flu-like symptoms over the last week, so ruling out pneumonia. LFTs also mildly elevated, but likely due to sepsis. Will monitor CMP. - Blood cultures - Sputum cultures - Urine cultures - Cefepime and linezolid - Strep pneumo/Legionella antigens - Respiratory viral PCR - Procalcitonin ordered - NS @ 100 ml/hr - Monitor CMP Maintain map of 65, fluid as necessary. Infectious disease consultation. Continue current antibiotics and await cultures. CT scan does reveal septic pulmonary emboli. Possible septic pulmonary emboli, acute. Present on admission. - CT chest showed possible septic pulmonary emboli bilaterally(reviewed by admitting team on admission). High suspicion for endocarditis given her history. Heart murmur heard on exam. - Antibiotics and cultures as above - Echocardiogram in the AM, ordered - Consult Dr. Lee in the AM Acute kidney injury. Present on admission. And active. - Likely secondary to sepsis and hypotension. Cr increased from 1.08 in October to 8.07. Dr. Monge recommends fluid resuscitation for now and will see in AM. - Dr. Monge of Nephrology has been consulted. We appreciate his input. - NS @ 100 ml/hr - Avoid nephrotoxic agents. We will follow closely. Severe thrombocytopenia, acute. Present on admission. - Pt presents with platelets of 20. Last plt count was 259 on 10/21/16. Presents with bruising and petechiae. Reviewed med list, no meds suspicious for drug induced ITP. Suspicion for hemolysis given elevated LDH of 622, but may be elevated due to sepsis. However, bilirubin was normal at 1.0 and Hb was normal at 13.8. Will recheck CBC and CMP in AM. DIC unlikely as fibrinogen and INR, PT/ PTT normal. TTP also less likely because of normal parameters. Suspect ITP given acutely low platelets and normal bleeding parameters. Pt not actively bleeding but at risk of bleed as she may need a central line in the near future. Will transfuse platelets. - Direct Berenice ordered - Reticulocyte count ordered - Peripheral smear - Haptoglobin - Repeat CBC in AM - Anti-Platelet antibodies ordered - Platelet infusion ordered Acute dyspnea. Present on admission. Active and improving. Electrolytes to septic emboli. - Pt presents septic with likely septic pulmonary emboli. Physical exam reveals bilat wheezes. She also has a history of asthma. - Albuterol nebs q6h PRN Left shoulder pain, acute. Present on admission. Active and stable. - Pt has history of septic joint of the left sternoclavicular joint. Considering her history, a contrast CT of the left shoulder should be done once her PRISCILA has improved. All clinically. She is at risk for hematogenous spread of her infection. Anion gap metabolic acidosis, acute. Present on admission. Active improving. - Secondary to lactic acidosis and PRISCILA. Gap 24. pH 7.26, pCO2 32.6, pO2 110, bicarb 14.2. - Trend lactic acid q2 until normal - Treat underlying causes - Monitor anion gap Therefore trend lactic acid. Hyponatremia, acute. Present on admission. He appears to have hypovolemic hyponatremia. We will continue fluid resuscitation. - Na 126 on admission. Pt receiving NS @ 100 ml/hr - Monitor CMP History of IV drug abuse. POA and Active with heroin or last 7 days. - Pt has hx of IVDA, last used recently. Last Hep and HIV panels in 2015 were negative. Will reorder HIV given low platelets. - HIV panel ordered - Social work consult History of tobacco use. By mouth and active - Nicotine patch ordered History of seizure disorder. POA and stable. - Continue home lamotrigine Other Chronic Conditions Recurrent UTIs. Ongoing IV drug use with heroin and meth. History of gonorrhea. History of recurrent soft tissue infections. Asthma MSSA tricuspid valve endocarditis Septic pulmonary emboli secondary to endocarditis Septic left sternoclavicular joint secondary to IVDA VTE Prophylaxis: Other (Pt has thrombocytopenia - no DVT prophylaxis for now.) VTE Mechanical Devices: Intermittant Pneumatic CD Resuscitation Status: CPR: Attempt Resuscitation Mitul Barrera MD Feb 17, 2017 12:53
--- NOTE | 2017-02-17 13:24 | DRSVH ---
[facility] [address] [place] [address] Echocardiogram Report Name: RAJANI ALSTON JStudeliza Mirza e: 02/17/2017 Height : 63 in Hospital Exam Location: [facility] Weight : 155 lb Gender: Female BSA: 1 .7 m2 : 1990 Age: 26 yrs BP: 10 1/64 mmHg Reason For Study: ENDOCARDITIS/SEPSIS Ordering Physician: Stevie Jean Performed By: Hanny Wisdom Referring Physician: CHAPARRO BULL Interpretation Summary Sinus tachycardia. Normal LV size and wall thickness. There is normal LV wall motion and systolic function. EF is 55-60%. There is severe RV dilation with normal wall motion. There is severe RA dilation. There is a 2.5x0.9 cm vegetation on the downstream side of the tricuspid valve leaflet. There is moderate tricuspid regurgittation. There is normal valve structure and function otherwise. Estimated PASP is 42 mm Hg assuming RA pressure of 3 mm Hg. Compared to prior study 08/04/2016 sinus tachycardia is new. RV dilation is new. Vegetation on the tricuspid valve is old. Tricuspid regurgitation is old. Procedure: A two-dimensional transthoracic echocardiogram with color flow and Doppler was performed. The study quality was technically good. Comparison is made with the echocardiogram of 07/25/16. The patient was in sinus tachycardia with heart rates between 123 and 129 bpm during the exam. Left Ventricle: The left ventricular cavity is small. Left ventricular wall thickness is mildly increased. The left ventricular ejection fraction is normal. The ejection fraction is estimated to be 55-60%. There are no focal wall motion abnormalities. Flattened septum is consistent with RV pressure/volume overload. Diastolic function could not be accurately assessed due to tachycardia. Right Ventricle: The right ventricle is severely dilated. The right ventricular systolic function is normal. Atria: The left atrial size is normal. The right atrium is severely dilated. The interatrial septum bows toward left atrium consistent with elevated right atrial pressure. There is no Doppler evidence for an interatrial shunt. Mitral Valve: The mitral valve is normal in structure and function. There is systolic anterior motion of the chordal apparatus. There is no vegetation seen on the mitral valve. There is no mitral regurgitation noted. Aortic Valve: The aortic valve is normal in structure and function. There is no aortic valvular vegetation. No aortic regurgitation is present. Tricuspid Valve: There is a moderate size vegetation or mass on the tricuspid valve. Vegetation measures 2.5 x 0.88. There is severe tricuspid regurgitation. The right ventricular systolic pressure is estimated at least 42 mmHg assuming a right atrial pressure of 3 mm Hg. RVSP underestimated due to severity of TR. Pulmonic Valve: The pulmonic valve leaflets are thin and pliable; valve motion is normal. There is no vegetation on the pulmonic valve. There is no pulmonic valvular regurgitation. Great Vessels: The aortic root is normal size. The ascending aorta is normal in size. The aortic arch is normal in size. The pulmonary is not well visualized. The IVC is of normal diameter and collapses greater than 50% with a sniff. This suggests a low right atrial pressure of 3 mm Hg. Pericardium/ Pleura There is no pericardial effusion. There is no pleural effusion. MMode/2D Measurements & Calculations LVIDd: 3.5 cm RA long axis LVOT diam: 2.3 cm LVIDs: 2.9 cm LA A2 area: 10.5 cm AoV Opening FS: 19.6 % LA A4 area: 15.9 cm RA area EPSS: 0.10 cm LA length (vol) Ao root diam IVSd: 1.0 cm : 22.9 cm LVPWd: 1.1 cm LA vol: 30.8 ml RA vol asc Aorta Diam LA vol index : 82.6 ml RA Ao Arch Diam (Prox : 47.6 mm2 Trans): 2.0 cm IVC diam: 1.9 cm LV james. diameter/BSA LV sys. diameter/BSA RVD1 (basal) RVD2 (mid): 5.0 cm (cm/m^2): 2.0 (cm/m^2): 1.6 TAPSE: 2.0 cm Doppler Measurements & Calculations Ao V2 max MV E max fidel Med Peak E' Fidel TR max fidel : 110.8 cm/sec : 76.5 cm/sec : 310.8 cm/sec Ao max PG E/E' med: 6.3 TR max P.6 mmHg : 4.9 mmHg Lat Peak E' Fidel PA V2 max: 73.4 cm/sec Ao mean PG PA mean P.2 mmHg E/E' lat: 5.5 PA Accel Time LVOT Max Fidel E/e' average: 5.9 : 0.03 sec : 107.7 cm/sec CORRY(I,D): 4.8 cm sev ratio: 1.1 Ao V2 mean LV V1 max PG PA V2 mean CORRY indexed to BSA : 81.6 cm/sec : 49.8 cm/sec (cm^2/m^2): 2.8 Ao V2 VTI: 12.7 cmLV V1 VTI CORRY(V,D): 4.1 cm2 : 14.5 cm Reading Physician:01:[id number] PM
[2017-02-17 14:37] LABS: Mean Corpuscular Hemoglobin 31.2 pg (27.0-35.0)
--- NOTE | 2017-02-17 15:16 | NUR ---
Sepsis.. Pt remains hypotensive with MAP drifts into the 50's. Dr Barrera updated with hemodynamics and critical labs/ positive blood cultures.. Orders received and pt is on her 2nd NS IV bolus. Has been sleeping most of shift and denies pain but both arms are tender if touched. Has numerous scratch hannon over body that pt relates to itching. Med with anti scabie cream. T max 38.2 this shift.
[2017-02-17] MEDS ORDERED: Calcium GLUCO 10% (mEq) Inj 9.3 MEQ in Dextrose 5% 100 ML IV ONE (15:55)
--- NOTE | 2017-02-17 18:37 | NUR ---
Unable to place peripheral line multiple attempts to start, 1 with ultrasound, veins too deep for peripheral line. paged by RN
--- NOTE | 2017-02-17 20:11 | DRSVH ---
PROCEDURE: X-RAY CHEST ONE VIEW, PORTABLE ([id number]) INDICATIONS: 26 year-old female with central line placement. TECHNIQUE: One view of the chest was acquired. COMPARISON: [facility], CT, CT CHEST ABD PELVIS WO CON, 02/17/2017, 1:38. [facility], CR, XR CHEST 1VW (PORTABLE), 02/17/2017, 0:01. [facility], CR, XR CHEST 2VW, 12/2016, 19:48. [facility], CR, XR CHEST 2VW, 09/01/2016, 12:25. FINDINGS: Surgical changes and devices: Right internal jugular central venous catheter is now present. Lungs and pleura: No pleural effusions or pneumothorax. Bilateral ill-defined pulmonary nodules are again noted. Mediastinum: Mediastinal contours appear normal. Heart size is normal. Bones and chest wall: No suspicious bony lesions. Overlying soft tissues appear unremarkable. IMPRESSION: 1. Right internal jugular central venous catheter is in expected position. No pneumothorax. 2. Bilateral septic emboli as before. Dictated by: Lance Dan M.D. on 02/17/2017 at 20:07 Approved by: Lance Dan M.D. on 02/17/2017 at 20:10
[2017-02-17] MEDS ORDERED: 0.9% Sodium Chloride 250 ML IV ONE (21:30)
[2017-02-17 21:37] LABS: Mean Corpuscular Hemoglobin 31.2 pg (27.0-35.0); Mean Corpuscular Volume 88.4 fL (81-100)
[2017-02-17] MEDS ORDERED: Acetaminophen IV 1,000 MG in IV Premix 1 EACH IV PRN (21:50)
[2017-02-17] MEDS ORDERED: Norepinephrine 8,000 mCg/250 mL NS Premix IV ONE (23:59)
[2017-02-18 00:35] VITALS: BP 89/56; PULSE 110; RESP 24; O2SAT 95
[2017-02-18 04:13] VITALS: BP 87/52; PULSE 100; RESP 24; O2SAT 95
--- NOTE | 2017-02-18 04:16 | NUR ---
Temp/Pain/Labs Pt max temp 38.8. Slightly diaphoretic. Also reports 10/10 generalized pain. MD notified. New orders for tylenol and IV pain meds. Labs drawn via pt central line. Critical levels including platelet count. orders to transfuse 2 unit platelets implemented. Pt curently afebrile and pain seems to be better controlled. Awaiting AM labs. Will continue to monitor. Care ongoing
[2017-02-18 06:18] LABS: Mean Corpuscular Hemoglobin 31.1 pg (27.0-35.0); Mean Corpuscular Volume 89.2 fL (81-100)
[2017-02-18] MEDS: 0.9% Sodium Chloride 1,000 ML IV SCH ×3 (06:36→20:27)
[2017-02-18] MEDS: hydrOXYzine Pamoate 25 mg Capsule PO SCH ×2 (07:41→12:17)
[2017-02-18] MEDS: lamoTRIgine 100 mg Tablet PO SCH ×2 (07:42→20:27)
[2017-02-18 07:44] VITALS: BP 92/52; PULSE 92; O2SAT 94
[2017-02-18] MEDS ORDERED: Calcium GLUCO 10% (mEq) Inj 9.3 MEQ in Dextrose 5% 100 ML IV ONE (07:50)
[2017-02-18] MEDS ORDERED: Cefepime 1,000 MG in Dextrose 5% Minibag Plus 50 ML IV SCH (08:00)
[2017-02-18] MEDS: CEFTAROLINE IV SCH ×6 (08:14→20:37)
[2017-02-18] MEDS: DEXTROSE IV SCH ×2 (08:14)
[2017-02-18] MEDS: D5W IV SCH ×4 (08:30→20:37)
[2017-02-18] MEDS ORDERED: SODIUM CHLORIDE 0.9% IV SCH (08:30)
[2017-02-18] MEDS ORDERED: CEFTAROLINE IV SCH ×2 (08:30)
[2017-02-18] MEDS ORDERED: DEXTROSE IV SCH ×2 (08:30)
[2017-02-18] MEDS ORDERED: MEROPENEM IV SCH (08:30)
[2017-02-18] MEDS: Nafcillin Inj 2,000 MG in Dextrose 5% Minibag Plus 100 ML IV SCH ×4 (10:05→20:26)
--- NOTE | 2017-02-18 11:16 | PCM.PNNEPH ---
Subjective Date of Service Feb 18, 2017 Subjective Overnight: Patient became hypotensive requiring Nor Epi through central line. Temperature spike of 38.8. low platelets, 2 units given. Today: Patient somnolent in bed complaining of diffuse body pain. 700 mL urinary output so far today, 840 mL the last 24 hours. Sodium has increased to 130 from 126 BUN and creatinine continued to trend down today 61/6.7. Compliment studies have come back low C3-C4 suggesting glomerulonephritis. Exam Vital Signs Vital Sign - Last Date Time Temp Pulse Resp B/P Pulse Ox O2 Delivery O2 Flow Rate FiO2 02/18/17 07:44 36.8 92 92/52 94 Room Air 02/18/17 04:13 24 02/17/17 04:18 2.00 Intake and Output 02/17/17 02/17/17 02/18/17 Cumulative From/Thru 15:00 23:00 07:00 02/16/17 23:36 - 02/18/17 06:19 Intake Total 4349 ml 7526 ml 96270 ml Output Total 550 ml 700 ml 1540 ml Balance 3799 ml 6826 ml 13514 ml Intake Oral 1040 ml 200 ml 1440 ml IV Total 3309 ml 6836 ml 57283 ml Platelets 490 ml 490 ml Output Urine Total 550 ml 700 ml 1540 ml # Bowel Movements 0 0 0 Exam General: Lying in hospital bed in mild distress, somnolent HEENT: Normocephalic, atraumatic. Anicteric sclerae, moist conjunctivae, and no lid lag. Oropharynx free of erythema and cobble stoning with moist mucosa. Neck: Supple with full range of motion. No jugular venous distension. Cardiovascular: Harsh holosystolic murmur 3/6 heard best at left sternal border. Pulmonary: Rhonchi heard posterior lung sky. Good air movement, no use of accessory muscles Abdomen: Bowel tones present. Soft, nontender, nondistended. No hepatosplenomegaly or masses appreciated. Extremities: No clubbing, cyanosis, edema, [place]ay lesions, ulcers nodes or half -and-half nails Skin: Normal temperature, turgor, and texture. Excoriations left shoulder breast area as well as the T-zone of her face. Excoriations/rash left breast & shoulder area. Neurological: Cranial nerves grossly intact. Psychiatric: Flat affect, somnolent IVs and Medications Medications Reviewed: Medications were reviewed in detail Lab and Diagnostics Result Diagram: 02/18/17 0550 02/18/17 0550 X-Rays, CTs and MRIs . X-RAY CHEST ONE VIEW, PORTABLE IMPRESSION: Diffuse bilateral patchy air space opacities suspicious for pneumonia. Dictated by: Delon Pelayo [facility] Interpreted: Jose Enrique York MD on 02/17/2017 X-RAY CHEST ONE VIEW, PORTABLE IMPRESSION: 1. Right internal jugular central venous catheter is in expected position. No pneumothorax. 2. Bilateral septic emboli as before. Dictated by: Lance Dan M.D. on 02/17/2017 CT CHEST, ABDOMEN AND PELVIS WITHOUT CONTRAST IMPRESSION: 1. Multiple bilateral cavitary lesions in the lungs consistent with recurrent septic emboli. The differential for these imaging findings includes inflammatory processes as well as metastatic disease but these are less likely given patient's prior history of septic emboli. 2. Slight asymmetric appearance of the right kidney with minimal perinephric stranding. However, evaluation for pyelonephritis is limited in the absence of intravenous contrast. Recommend correlation clinically. There is no hydronephrosis. 3. Mildly prominent bladder wall thickness likely due to incomplete distention. Recommend correlation with urinalysis. Dictated by: Sulaiman Haines M.D. on 02/17/2017 CT BRAIN WITHOUT CONTRAST IMPRESSION: 1. No acute intracranial abnormality. Dictated by: Sulaiman Haines M.D. on 02/17/2017 Cardiac Echo Impressions . Echocardiogram Report Interpretation Summary: Sinus tachycardia. Normal LV size and wall thickness. There is normal LV wall motion and systolic function. EF is 55-60%. There is severe RV dilation with normal wall motion. There is severe RA dilation. There is a 2.5x0.9 cm vegetation on the downstream side of the tricuspid valve leaflet. There is moderate tricuspid regurgittation. There is normal valve structure and function otherwise. Estimated PASP is 42 mm Hg assuming RA pressure of 3 mm Hg. Compared to prior study 08/04/2016 sinus tachycardia is new. RV dilation is new. Vegetation on the tricuspid valve is old. Tricuspid regurgitation is old. Electronically signed by: Cielo Barnard Plan Impression 1. Acute kidney injury with acute tubular necrosis secondary to dehydration , endocarditis, possible hemolytic uremic syndrome versus thrombotic thrombocytopenic purpura (TTP). 2. Possible glomerulonephritis 2. Pyelonephritis. 3. Severe thrombocytopenia. 4. Non-anion gap metabolic acidosis. Plan: 1. Continue IV hydration saline 150 mm per hour 2. C3-C4 low. ANCA & GBM ordered and pending. (ESR,HELEN HCV, HIV negative) 3. ADAMTS 13 Pending 4. Antibiotics therapy per infectious disease 5. Closely Monitor I & O 6. Consider Bicarb initiation if no improvement in acidosis 7. Renal US ERI CAPPS DO Feb 18, 2017 11:16
[2017-02-18 12:00] VITALS: BP 89/54; PULSE 88; RESP 19; O2SAT 94
--- NOTE | 2017-02-18 12:23 | PROG NOTE ---
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 INTERVAL HISTORY: The patient reports overnight she has felt a bit better. She denies any fevers or chills but states she continues to be mildly short of breath with bilateral pleuritic chest pain with deep inspiration. She has minimal cough. No abdominal complaints. She has a Neff catheter. Urine output has increased overnight. Unfortunately, the patient has started to require vasopressors overnight and this may be related in some way to her ongoing brisk diuresis, which has been 6 L in the past 24 hours or so. The patient also notes that she has some bilateral sternoclavicular joint pain but not nearly so severe as she did during her last admission when she had a frankly septic left sternoclavicular joint. PHYSICAL EXAMINATION: Reveals a woman who has been febrile during the night to 38.3, but is afebrile now at 36.8, pulse 92, respiratory rate in the mid 20s. Blood pressure 92/52. She is saturating well on room air. Examination of the head unremarkable. Eyes without conjunctival hemorrhage. Oral cavity benign. Her sternoclavicular joints appear benign externally, are mildly tender with palpation on both sides. A right IJ is present, and we must consider contaminated given the high-grade bacteremia she currently has. The patient's cardiac tones, regular rate and rhythm without significant murmur this morning. The lungs are notable for a few crackles at the bases. This is really restricted air movement. However, she is unwilling to take a deep breath due to her pleuritic chest pain. The abdomen is soft and nontender without organomegaly. She has a Neff catheter and as noted, she is briskly diuresing. Her extremities are well perfused, and she has good strength in all four. LABORATORIES: Include a white count which is actually going the wrong direction, 17,000 yesterday and 20 today. Platelet count remains poor at 34,000. Creatinine is improving somewhat. It is 8 when she came in. It is now down to 6.11, suggesting relatively normal renal function in spite of that elevated creatinine. Urinalysis, 6-10 white cells. Complement levels are low, not surprisingly, on C3 and C4. HIV negative. Hep C negative. Gonorrhea and chlamydia pending. Micro studies include multiple positive blood cultures from yesterday, so these cultures turned positive very briskly and are all growing Staph aureus. In addition, we have respiratory viral PCR positive for coronavirus, a MRSA screen of the nares which is negative and urine legionella and pneumococcal antigens which are negative. Urine culture is growing what appears to be Staph aureus. IMAGING: Reviewed yesterday but it is interesting to re-review today. The imaging yesterday showed multiple cavitary lesions in both lungs consistent with septic pulmonary emboli. I discussed this with the radiologist, and it is quite interesting that the cavitary septic emboli from her last episode of endocarditis, which was about seven months ago, have all healed, and these are new cavitary septic pulmonary emboli. In addition, she has some changes in her right kidney which looked like pyelonephritis which we now can interpret as Staph aureus pyelonephritis given her positive urine culture. The brain CT is basically normal. Echocardiogram was done yesterday and interpreted by Dr. Barnard. The patient has a 2.5 cm vegetation on the tricuspid valve. This vegetation was seen previously back in July when she also had tricuspid valve endocarditis. The patient also has severe tricuspid regurgitation and very high RV pressures. IMPRESSION: This is an extraordinary, unfortunate case of a woman who had a very complicated course back in June and July when she had tricuspid valve endocarditis with septic pulmonary emboli and a septic left sternoclavicular joint associated with renal failure. After a very prolonged course of antibiotics, the patient was entirely asymptomatic, blood culture negative and returned to her normal state of health. She spent four months in a drug rehab program and then relapsed. She now presents with an amazingly similar presentation again with the tricuspid valve vegetation, which may be old, plus new septic pulmonary emboli and pleuritic chest pain, acute renal failure, right-sided pyelonephritis, which is obviously also due to Staphylococcus aureus, and what appears to be scabies. All of this is topped off by a coronavirus. I frankly discussed with the patient that this trend cannot continue in that she has now had life-threatening endocarditis with pulmonary and renal involvement twice in an eight month period of time and that she is on a trajectory that will result in her demise if this is not prevented in the future. As for antibiotic management, we still do not know if the Staphylococcus aureus in blood are methicillin-sensitive Staphylococcus aureus as they were before or if this could be a new methicillin-resistant Staphylococcus aureus infection. Because of that we are forced to treat for both, though I strongly suspect this will be methicillin-sensitive Staphylococcus aureus once again. The development of hypotension overnight is certainly worrisome but I suspect this is due to her tremendous diuresis and that she will turn around in that respect. Will go ahead and start nafcillin now as the definitive drug for this methicillin-sensitive Staphylococcus aureus endocarditis while we continue ceftaroline just to hedge our bets regarding the methicillin-resistant Staphylococcus aureus possibility. I have discussed dosing of ceftaroline with the pharmacist and have stressed that it should be increased, as her renal function is improving so rapidly. I think we can consider we have almost normal renal function. RECOMMENDATIONS: 1. Will increase ceftaroline to 600 q.12 h. 2. Will start nafcillin 2 g IV q.4 h. 3. If this turns out to be MSSA tomorrow, we can simply drop the ceftaroline. 4. The patient has received permethrin for definitive treatment of her scabies. 5. We await the gonorrhea and chlamydia studies. 6. I would formally invite Cardiology to weigh in as to whether or not she may be a candidate for valve replacement. I realize she is a very active drug user but should she remain in septic shock or we would be unable to sterilize her blood cultures, then a valve replacement might be the only recourse. 7. I have ordered blood cultures for tomorrow, February 19. I do not see any reason to check blood cultures today, as she had such a high-grade bacteremia just 24 hours ago. These are almost certainly going to be positive today. 8. Once her blood cultures turn negative and stay that way for a few days, we will take out her right IJ and replace it with a new "clean" PICC line.
--- NOTE | 2017-02-18 12:49 | PCM.PNMED ---
Subjective Date of Service Feb 18, 2017 Subjective She feels weak this morning but denies pain. She did have intermittent fevers last night. She denies headache or visual changes. She has had a dry cough but is not short of breath. No chest or clavicle pain. No nausea or abdominal pain. She is anorexic. She had a right IJ placed late yesterday afternoon and was started on norepinephrine after aggressive fluid resuscitation with a ongoing soft pressure. Exam Vital Signs Vital Sign - Last Date Time Temp Pulse Resp B/P Pulse Ox O2 Delivery O2 Flow Rate FiO2 02/18/17 07:44 36.8 92 92/52 94 Room Air 02/18/17 04:13 24 02/17/17 04:18 2.00 Intake and Output 02/17/17 02/17/17 02/18/17 Cumulative From/Thru 15:00 23:00 07:00 02/16/17 23:36 - 02/18/17 06:19 Intake Total 4349 ml 7526 ml 58626 ml Output Total 550 ml 700 ml 1540 ml Balance 3799 ml 6826 ml 04822 ml Intake Oral 1040 ml 200 ml 1440 ml IV Total 3309 ml 6836 ml 87528 ml Platelets 490 ml 490 ml Output Urine Total 550 ml 700 ml 1540 ml # Bowel Movements 0 0 0 Exam Alert and oriented -3, no distress. Fluent speech. She is somewhat lethargic. Anicteric sclera. Lungs are clear with normal rate and effort Heart is regular without murmur gallop or rub Abdomen soft nontender, flat Extremities are free of edema. Skin is free of rash or lesions. Joints are free of edema or swelling with normal range of motion. She has no clavicular tenderness She does have multiple track hannon over her forearms. IVs and Medications Medications Reviewed: Medications were reviewed in detail Lab and Diagnostics Result Diagram: 02/18/17 0550 02/18/17 0550 X-Rays, CTs and MRIs . X-RAY CHEST ONE VIEW, PORTABLE IMPRESSION: Diffuse bilateral patchy air space opacities suspicious for pneumonia. Dictated by: Delon LEYVA Interpreted: Jose Enrique York MD on 02/17/2017 X-RAY CHEST ONE VIEW, PORTABLE IMPRESSION: 1. Right internal jugular central venous catheter is in expected position. No pneumothorax. 2. Bilateral septic emboli as before. Dictated by: Lance Dan M.D. on 02/17/2017 CT CHEST, ABDOMEN AND PELVIS WITHOUT CONTRAST IMPRESSION: 1. Multiple bilateral cavitary lesions in the lungs consistent with recurrent septic emboli. The differential for these imaging findings includes inflammatory processes as well as metastatic disease but these are less likely given patient's prior history of septic emboli. 2. Slight asymmetric appearance of the right kidney with minimal perinephric stranding. However, evaluation for pyelonephritis is limited in the absence of intravenous contrast. Recommend correlation clinically. There is no hydronephrosis. 3. Mildly prominent bladder wall thickness likely due to incomplete distention. Recommend correlation with urinalysis. Dictated by: Sulaiman Haines M.D. on 02/17/2017 CT BRAIN WITHOUT CONTRAST IMPRESSION: 1. No acute intracranial abnormality. Dictated by: Sulaiman Haines M.D. on 02/17/2017 Cardiac Echo Impressions . Echocardiogram Report Interpretation Summary: Sinus tachycardia. Normal LV size and wall thickness. There is normal LV wall motion and systolic function. EF is 55-60%. There is severe RV dilation with normal wall motion. There is severe RA dilation. There is a 2.5x0.9 cm vegetation on the downstream side of the tricuspid valve leaflet. There is moderate tricuspid regurgittation. There is normal valve structure and function otherwise. Estimated PASP is 42 mm Hg assuming RA pressure of 3 mm Hg. Compared to prior study 08/04/2016 sinus tachycardia is new. RV dilation is new. Vegetation on the tricuspid valve is old. Tricuspid regurgitation is old. Electronically signed by: Cielo Barnard Assessment & Plan Pt is a 26 y/o female w/ a hx of tricuspid MSSA endocarditis, ongoing IVDA ( meth and heroin), septic PE, pneumonia, presenting to the ED c/o dyspnea. Acute sepsis. Present on admission. Source is staph endocarditis with secondary bacteremia. This is improving. - Pt presents with temp 37.9, HR 145, BP 86/52, WBC 15.4 with left shift, lactic of 2.6. Likely multifactorial. She has a history of UTIs, and UA shows 6- 10 WBCs with moderate bacteria, small leukocyte esterase. Given her IVDA and history of septic PE and endocarditis, bacteremia and endocarditis are high on the differential, especially considering likely multifocal septic pulmonary emboli on chest CT. She also complains of green sputum and flu-like symptoms over the last week, so ruling out pneumonia. LFTs also mildly elevated, but likely due to sepsis. Will monitor CMP. - Blood cultures - Sputum cultures - Urine cultures - Cefepime and linezolid - Strep pneumo/Legionella antigens - Respiratory viral PCR - Procalcitonin ordered - NS @ 100 ml/hr - Monitor CMP Maintain map of 65, continue fluids at 1:15 hour and wean norepinephrine as able. Infectious disease consultation appreciated. Continue current antibiotics and await cultures. CT scan does reveal septic pulmonary emboli. Possible septic pulmonary emboli, acute. Present on admission. Clinically improving. - CT chest showed possible septic pulmonary emboli bilaterally(reviewed by admitting team on admission). High suspicion for endocarditis given her history. Heart murmur heard on exam. - Antibiotics and cultures as above - Echocardiogram in the AM, ordered - Consult Dr. Lee in the AM Acute kidney injury. Present on admission. Slowly improving. - Likely secondary to sepsis and hypotension. Cr increased from 1.08 in October to 8.07. Dr. Monge recommends fluid resuscitation for now and will see in AM. - Dr. Monge of Nephrology has been consulted. We appreciate his input. - NS @ 100 ml/hr - Avoid nephrotoxic agents. We will follow closely. Severe thrombocytopenia, acute. Present on admission. Slowly improving. - Pt presents with platelets of 20. Last plt count was 259 on 10/21/16. Presents with bruising and petechiae. Reviewed med list, no meds suspicious for drug induced ITP. Suspicion for hemolysis given elevated LDH of 622, but may be elevated due to sepsis. However, bilirubin was normal at 1.0 and Hb was normal at 13.8. Will recheck CBC and CMP in AM. DIC unlikely as fibrinogen and INR, PT/ PTT normal. TTP also less likely because of normal parameters. Suspect ITP given acutely low platelets and normal bleeding parameters. Pt not actively bleeding but at risk of bleed as she may need a central line in the near future. Will transfuse platelets. She did receive one sixpack of platelets yesterday. The platelet count appears to be stable to improving at this point. We will continue to treat the problem which is sepsis and endocarditis. Left shoulder pain, acute. Present on admission. Active and improved. - Pt has history of septic joint of the left sternoclavicular joint. We will continue to follow clinically and imaging if necessary. Anion gap metabolic acidosis and lactic acidosis, acute. Present on admission, improving. - Secondary to lactic acidosis and PRISCILA. Gap 24. pH 7.26, pCO2 32.6, pO2 110, bicarb 14.2. - Trend lactic acid q2 until normal - Treat underlying causes - Monitor anion gap Dr. Braga is normalized.. Hypovolemic Hyponatremia, acute. Present on admission. Continue fluid resuscitation. - Na 126 on admission. Pt receiving NS @ 150 ml/hr - Monitor CMP History of IV drug abuse. POA and Active with heroin or last 7 days. - Pt has hx of IVDA, last used recently. Last Hep and HIV panels in 2016 were negative. Will reorder HIV given low platelets. - HIV panel ordered - Social work consult History of tobacco use. By mouth and active - Nicotine patch ordered History of seizure disorder. POA and stable. - Continue home lamotrigine Other Chronic Conditions Recurrent UTIs. Ongoing IV drug use with heroin and meth. History of gonorrhea. History of recurrent soft tissue infections. Asthma MSSA tricuspid valve endocarditis Septic pulmonary emboli secondary to endocarditis Septic left sternoclavicular joint secondary to IVDA VTE Prophylaxis: Other (Pt has thrombocytopenia - no DVT prophylaxis for now.) VTE Mechanical Devices: Intermittant Pneumatic CD Resuscitation Status: CPR: Attempt Resuscitation Mitul Barrera MD Feb 18, 2017 12:49
--- NOTE | 2017-02-18 13:52 | PCM.PROC ---
Procedure Note Date of Service: Feb 17, 2017 Pre Procedure Diagnosis: Septic emboli Chronic heroin and substance use Post Procedure Diagnosis: Septic emboli Chronic heroin and substance use Procedure Details: Time: 1829 Indication: IV access not obtainable with peripheral IV or PICC line. Resident: Cristian Noguera DO; Beau Rowell DO Attending: Justen Haney MD was available during the entire procedure A time-out was completed verifying correct patient, procedure, site, positioning , and special equipment if applicable. The patient was placed in a supine with mild trendelenburg. The patients right neck was prepped and draped in sterile fashion. 1% Lidocaine was used to anesthetize the surrounding subcutaneous skin. A triple lumen catheter was introduced into the the internal jugular using the Seldinger technique under ultrasound guidance. The catheter was threaded smoothly over the guide wire and appropriate blood return was obtained. Each lumen of the catheter was evacuated of air and flushed with sterile saline. The catheter was then dressed in place to the skin and a sterile dressing applied. Perfusion to the extremity distal to the point of catheter insertion was checked and found to be adequate. Catheter was secured at 14 inches and appropriate placement was confirmed by CXR. Estimated Blood Loss: < 5ml The patient tolerated the procedure well and there were no complications. It was noted that the patient had low platelets of 35,000, and discussion was sought with anesthesia who was unable to perform the procedure. Recommendations from them were obtained. Post procedure bleeding was monitored and minimal. Attending Statement I was personally present and immediately available throughout the entire procedure and agree with the description of the procedure above. Cristian Noguera DO Feb 18, 2017 13:52 Justen Haney MD Feb 20, 2017 16:17
[2017-02-18 15:44] VITALS: BP 114/74; PULSE 92; RESP 23; O2SAT 97
--- NOTE | 2017-02-18 16:42 | DRSVH ---
PROCEDURE: US RENAL SONOGRAM INDICATIONS: Poss Pylo TECHNIQUE: Real-time scanning was performed of the kidneys and bladder, with image documentation. COMPARISON: [facility], US, US RENAL, 08/04/2016, 10:00. FINDINGS: Kidneys: Kidneys are normal in size. Right kidney measures 12.9 cm long; left kidney measures 12.9 cm long. Right renal cortical thickness is 2.2 cm; left renal cortical thickness is 2.0 cm. Renal cortical echotexture is increased bilaterally. No hydronephrosis or nephrolithiasis. No suspicious solid mass lesions. Bladder: Neff catheters present and the urinary bladder is decompressed. Small amount of ascites wi thin the pelvis. Miscellaneous: No free pelvic fluid. IMPRESSION: 1. Increased renal cortical echogenicity bilaterally suggesting medical renal disease similar to prio r examination. 2. Mild amount of ascites within the pelvis. Dictated by: Delon Pelayo [facility] Interpreted: Jose Enrique York MD on 02/18/2017 at 15:41 Approved by: Jose Enrique York M.D. on 02/18/2017 at 16:40
--- NOTE | 2017-02-18 17:46 | NUR ---
Temp/Hemodynamics.. Has been afebrile today and not tachycardic. Has had marginal B/P readings this am but these improved after having Norepi increased to 0.2 mcgs. UOP QS. Has slept most of shift, but is alert and oriented when awake. Has not requested any Morphine this shift.
[2017-02-18] MEDS: Norepineph 8,000 mCg/250 mL NS 8,000 MCG in IV Premix 1 EACH IV SCH ×2 (19:08)
[2017-02-18] MEDS: 0.9% Sodium Chloride 250 ML IV SCH (20:38)
[2017-02-18 20:43] VITALS: BP 110/61; PULSE 108; RESP 20; O2SAT 94
[2017-02-19] VITALS (7 sets, daily range): BP systolic 90–109; BP diastolic 50–66; PULSE 107–117; RESP 20–35; O2SAT 92–98
[2017-02-19] MEDS: Nafcillin Inj 2,000 MG in Dextrose 5% Minibag Plus 100 ML IV SCH ×6 (01:29→20:44)
[2017-02-19 05:12] LABS: Mean Corpuscular Hemoglobin 31.1 pg (27.0-35.0); Mean Corpuscular Volume 88.8 fL (81-100); Platelet Count 44 bil/L (150-400)
[2017-02-19 05:24] LABS: BASOPHILS % (AUTO) 0 % (0-3); EOSINOPHILS % (AUTO) 0 % (0-5); MONOCYTES % (AUTO) 4 % (4-12); NEUTROPHILS % (AUTO) 92 % (40-74)
[2017-02-19] MEDS: 0.9% Sodium Chloride 1,000 ML IV SCH (05:31)
--- NOTE | 2017-02-19 05:35 | NUR ---
Temp Max temp for this shift 39.1. Pt tachycardic and tachypneic as well as diaphoretic. MD ordered. AM labs and order to change frequency of oral tylenol given and implemented. Currently pt 37.7. Resing throughout most of night, but is starting to appear uncomfortable and restless in sleep. IV pain meds. Will continue to monitor. Care ongoing
[2017-02-19] MEDS: hydrOXYzine Pamoate 25 mg Capsule PO SCH ×3 (08:30→12:30)
[2017-02-19] MEDS ORDERED: Sodium Chloride LOK Flush 10 mL Syringe IVFLUSH PRN ×2 (10:20)
[2017-02-19] MEDS: lamoTRIgine 100 mg Tablet PO SCH ×2 (10:36→20:44)
[2017-02-19] MEDS: DAPTOmycin Inj 500 MG in 0.9% Sodium Chloride 50 ML IV SCH (10:55)
--- NOTE | 2017-02-19 11:17 | PCM.PNNEPH ---
Subjective Date of Service Feb 19, 2017 Subjective Patient's renal function continues to slowly improve. Intake and output last 24 hours were 9453 in and 1400 out with 850 out already this morning. She complains of some general malaise and some mild ill-defined abdominal discomfort. Her labs this morning showed hemoglobin 11.7, platelets of 44,000, sodium of 1:30, potassium 3.5, chloride 99, bicarbonate 25, BUN and creatinine were 61 and 5.2 and albumin of 2.1. Exam Vital Signs Vital Sign - Last Date Time Temp Pulse Resp B/P Pulse Ox O2 Delivery O2 Flow Rate FiO2 02/19/17 08:30 37.3 113 32 94/62 92 Room Air 02/17/17 04:18 2.00 Intake and Output 02/18/17 02/18/17 02/19/17 Cumulative From/Thru 15:00 23:00 07:00 02/16/17 23:36 - 02/19/17 06:28 Intake Total 2417 ml 2958 ml 52689 ml Output Total 700 ml 850 ml 3090 ml Balance 1717 ml 2108 ml 02887 ml Intake Oral 120 ml 400 ml 1960 ml IV Total 2297 ml 2558 ml 88381 ml Platelets 490 ml Output Urine Total 700 ml 850 ml 3090 ml # Bowel Movements 0 0 Exam HEENT examination is remarkable for some mild periorbital edema. Neck is supple without adenopathy or thyromegaly however there is some [id number] venous distention at 60. Lungs showed scattered rhonchi and intermittent end expiratory wheezes. Once again her heart exam demonstrates a harsh systolic murmur. Abdomen has a mild fluid wave and is mildly distended. There is hepatomegaly and evidence of pulsatile liver with hepatojugular reflux. There is some mild to moderate generalized edema. Lab and Diagnostics Result Diagram: 02/19/175 02/19/17 0455 X-Rays, CTs and MRIs . X-RAY CHEST ONE VIEW, PORTABLE IMPRESSION: Diffuse bilateral patchy air space opacities suspicious for pneumonia. Dictated by: Delon LEYVA Interpreted: Jose Enrique York MD on 02/17/2017 X-RAY CHEST ONE VIEW, PORTABLE IMPRESSION: 1. Right internal jugular central venous catheter is in expected position. No pneumothorax. 2. Bilateral septic emboli as before. Dictated by: Lance Dan M.D. on 02/17/2017 CT CHEST, ABDOMEN AND PELVIS WITHOUT CONTRAST IMPRESSION: 1. Multiple bilateral cavitary lesions in the lungs consistent with recurrent septic emboli. The differential for these imaging findings includes inflammatory processes as well as metastatic disease but these are less likely given patient's prior history of septic emboli. 2. Slight asymmetric appearance of the right kidney with minimal perinephric stranding. However, evaluation for pyelonephritis is limited in the absence of intravenous contrast. Recommend correlation clinically. There is no hydronephrosis. 3. Mildly prominent bladder wall thickness likely due to incomplete distention. Recommend correlation with urinalysis. Dictated by: Sulaiman Haines M.D. on 02/17/2017 CT BRAIN WITHOUT CONTRAST IMPRESSION: 1. No acute intracranial abnormality. Dictated by: Sulaiman Haines M.D. on 02/17/2017 Cardiac Echo Impressions . Echocardiogram Report Interpretation Summary: Sinus tachycardia. Normal LV size and wall thickness. There is normal LV wall motion and systolic function. EF is 55-60%. There is severe RV dilation with normal wall motion. There is severe RA dilation. There is a 2.5x0.9 cm vegetation on the downstream side of the tricuspid valve leaflet. There is moderate tricuspid regurgittation. There is normal valve structure and function otherwise. Estimated PASP is 42 mm Hg assuming RA pressure of 3 mm Hg. Compared to prior study 08/04/2016 sinus tachycardia is new. RV dilation is new. Vegetation on the tricuspid valve is old. Tricuspid regurgitation is old. 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 4 non-anion gap metabolic acidosis #5 hypoalbuminemia #6 pyelonephritis secondary to staph aureus which is resolving Recommendations #1 I would like to change her maintenance IV to D5 with 3 A of sodium bicarbonate at 60 an hour and I would also like to give 3 doses of 25 g of albumin. I would also like to give her 80 mg of Lasix IV and hopefully we can start to mobilize some of the fluid. Will keep her systolic blood pressure above 90. Abel Monge DO Feb 19, 2017 11:17
[2017-02-19] MEDS: Albumin 25% 25 GM in IV Premix 1 EACH IV SCH ×3 (11:20→20:43)
[2017-02-19] MEDS: Furosemide 10 mg/mL 10 mL Inj IVPUSH SCH (12:00)
[2017-02-19] MEDS: DEXTROSE 5% IV SCH ×3 (12:15→20:37)
[2017-02-19] MEDS: SODIUM BICARB IV SCH ×3 (12:15→20:37)
--- NOTE | 2017-02-19 12:24 | PROG NOTE ---
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 INTERVAL HISTORY: Overnight, the patient has remained quite ill. She continues to have high fevers, as well as some degree of sweats. She is short of breath and has pleuritic chest pain with deep inspiration which is bilateral. She also had some mild right upper quadrant pain, and is noting swelling of the extremities. Her urine output remains good. This case discussed with multiple other consultants. PHYSICAL EXAMINATION: Reveals a seriously ill woman, lying supine in her PCC room. She is 37.3 temperature now but she was 39.1 early this morning. Her pulse remains tachycardic about 110-120, sinus rhythm. Respiratory rate still in the 20s. Blood pressure 94/62. The patient remains on 0.15 of norepinephrine to maintain a physiologic blood pressure. She is saturating reasonably well on room air. Examination of the mental status reveals to be clear. Eyes without conjunctival abnormalities. Oral cavity negative. Lungs with decreased inspiration bilaterally and a few crackles at the bases. Cardiac tones: Regular rate and rhythm. There are no murmurs, rubs, or gallops appreciated but is quite tachycardic. The abdomen is slightly distended now, with some mild right upper quadrant tenderness but no focal mass. The extremities are now developing some "third spacing" with edema especially around the ankles. No new skin rash is noted. She has a right IJ central line. LABORATORIES: Include a white count which has moderated a bit down to 15,000 but still with 5% bands. Creatinine 5.23, which is coming down steadily now day-by-day from a peak of 8 on admission, now down to basically 5 after just three days. So, renal function rapidly improving. ALT and AST still 104 and 50, respectively. Procalcitonin was an amazing 63 when she came in. There is no particular reason to repeat it in this endocarditis patient. Urinalysis, 6-10 white cells. Gonorrhea and chlamydia are negative this time. Hep C antibody negative. HIV negative. Micro very confusing in this situation. All positive blood cultures from admission on the 3rd are reported as growing Staph aureus, which is, fortunately, an MSSA. Confusingly, at least two, and perhaps three, of those bottles are also growing a coag-negative staph, and one bottle has a viridans strep. The urine from admission is also growing MSSA as a single organism, and followup blood cultures were just drawn this morning, so we have no new data there. MRSA screen of the nares was negative. Respiratory viral PCR positive for coronavirus. Retroperitoneal ultrasound shows increased renal echogenicity consistent with medical renal disease. Chest radiograph done the 3rd shows bilateral septic pulmonary emboli. IMPRESSION: Once again, a very challenging case of a woman who was just here seven months ago with tricuspid valve endocarditis and multiple septic emboli who now comes back with exactly the same thing after a four-month period of abstinence from intravenous drug use, followed by a relapse. The organism here is probably methicillin-sensitive Staphylococcus aureus once again but it is a little confusing in that at least 3/4 blood cultures from admission are tentatively reported to have coag-negative staphylococcus, which I suppose is possibly a co-pathogen given it was isolated in so many bottles. The viridans streptococcus in one bottle likely represents a transient bacteremia of no significance and would be covered, in any event, by antibiotics provided for the other two organisms. At this point, we are in a bit of an uncomfortable situation where we cannot consolidate therapy just for methicillin-sensitive Staphylococcus aureus and, instead, are forced to cover methicillin-sensitive Staphylococcus aureus, as well as coag-negative staphylococcus, for which we do not yet have susceptibilities. RECOMMENDATIONS: 1. Will continue with nafcillin. 2. I am going to switch the ceftaroline she is now receiving to daptomycin. Daptomycin can be synergistic in some circumstances with beta-lactam drugs again Staphylococcus aureus, and I think we could take advantage of that synergy while we use the daptomycin for coverage for the coag-negative staph. 3. I have discussed this case in detail with Micro, and they are going to be checking daptomycin and ceftaroline susceptibilities on that coag-negative staph. 4. For obvious reasons, we are not going to use vancomycin in this case. 5. The patient is overall having a very sameera course and I continue to believe we should formally consult our colleagues from Cardiology to see whether this patient may need transfer and evaluation for tricuspid valve replacement given that she has a huge vegetation, polymicrobial bacteremia, continual high fevers and overall, quite a sameera clinical situation with mild hypotension requiring norepinephrine. 6. I told the patient she will be here six weeks or in some other hospital for at least six weeks, and that this is a life-threatening condition.
--- NOTE | 2017-02-19 12:39 | PCM.PNMED ---
Subjective Date of Service Feb 19, 2017 Subjective She feels very fatigued today. Improving fever curve. No chills. She denies any cough or dyspnea. No chest pain or abdominal pain. Her shoulder pain is somewhat improved. No clavicular pain. No nausea or diarrhea. No overnight events. She remains on norepinephrine. Exam Vital Signs Vital Sign - Last Date Time Temp Pulse Resp B/P Pulse Ox O2 Delivery O2 Flow Rate FiO2 02/19/17 08:30 37.3 113 32 94/62 92 Room Air 02/17/17 04:18 2.00 Intake and Output 02/18/17 02/18/17 02/19/17 Cumulative From/Thru 15:00 23:00 07:00 02/16/17 23:36 - 02/19/17 06:28 Intake Total 2417 ml 2958 ml 54148 ml Output Total 700 ml 850 ml 3090 ml Balance 1717 ml 2108 ml 79300 ml Intake Oral 120 ml 400 ml 1960 ml IV Total 2297 ml 2558 ml 48086 ml Platelets 490 ml Output Urine Total 700 ml 850 ml 3090 ml # Bowel Movements 0 0 Exam Alert and oriented -3, no distress. Slurred speech. She is lethargic. Anicteric sclera. Lungs are clear with normal rate and effort Heart is regular without murmur gallop or rub Abdomen soft nontender, flat Extremities with 2+ edema in both hands and feet. Skin is free of rash or lesions. IVs and Medications Medications Reviewed: Medications were reviewed in detail Lab and Diagnostics Result Diagram: 02/19/17 0455 02/19/17 0455 X-Rays, CTs and MRIs . X-RAY CHEST ONE VIEW, PORTABLE IMPRESSION: Diffuse bilateral patchy air space opacities suspicious for pneumonia. Dictated by: Delon Pelayo Maryjane Interpreted: Jose Enrique York MD on 02/17/2017 X-RAY CHEST ONE VIEW, PORTABLE IMPRESSION: 1. Right internal jugular central venous catheter is in expected position. No pneumothorax. 2. Bilateral septic emboli as before. Dictated by: Lance Dan M.D. on 02/17/2017 CT CHEST, ABDOMEN AND PELVIS WITHOUT CONTRAST IMPRESSION: 1. Multiple bilateral cavitary lesions in the lungs consistent with recurrent septic emboli. The differential for these imaging findings includes inflammatory processes as well as metastatic disease but these are less likely given patient's prior history of septic emboli. 2. Slight asymmetric appearance of the right kidney with minimal perinephric stranding. However, evaluation for pyelonephritis is limited in the absence of intravenous contrast. Recommend correlation clinically. There is no hydronephrosis. 3. Mildly prominent bladder wall thickness likely due to incomplete distention. Recommend correlation with urinalysis. Dictated by: Sulaiman Haines M.D. on 02/17/2017 CT BRAIN WITHOUT CONTRAST IMPRESSION: 1. No acute intracranial abnormality. Dictated by: Sulaiman Haines M.D. on 02/17/2017 Cardiac Echo Impressions . Echocardiogram Report Interpretation Summary: Sinus tachycardia. Normal LV size and wall thickness. There is normal LV wall motion and systolic function. EF is 55-60%. There is severe RV dilation with normal wall motion. There is severe RA dilation. There is a 2.5x0.9 cm vegetation on the downstream side of the tricuspid valve leaflet. There is moderate tricuspid regurgittation. There is normal valve structure and function otherwise. Estimated PASP is 42 mm Hg assuming RA pressure of 3 mm Hg. Compared to prior study 08/04/2016 sinus tachycardia is new. RV dilation is new. Vegetation on the tricuspid valve is old. Tricuspid regurgitation is old. Electronically signed by: Cielo Barnard Assessment & Plan Pt is a 26 y/o female w/ a hx of tricuspid MSSA endocarditis, ongoing IVDA ( meth and heroin), septic PE, pneumonia, presenting to the ED c/o dyspnea. #. Acute sepsis with septic shock. Present on admission. Source is staph endocarditis with secondary bacteremia. This is improving. - Pt presents with temp 37.9, HR 145, BP 86/52, WBC 15.4 with left shift, lactic of 2.6. Likely multifactorial. She has a history of UTIs, and UA shows 6- 10 WBCs with moderate bacteria, small leukocyte esterase. Given her IVDA and history of septic PE and endocarditis, bacteremia and endocarditis are high on the differential, especially considering likely multifocal septic pulmonary emboli on chest CT. She also complains of green sputum and flu-like symptoms over the last week, so ruling out pneumonia. LFTs also mildly elevated, but likely due to sepsis. Will monitor CMP. Maintain map of 65, continue fluids at 1:15 hour and wean norepinephrine as able. Infectious disease consultation appreciated. Continue current antibiotics and await cultures. CT scan does reveal septic pulmonary emboli. #. Tricuspid valve endocarditis with Septic pulmonary emboli, acute. Present on admission. Clinically improving. - CT chest showed possible septic pulmonary emboli bilaterally(reviewed by admitting team on admission). High suspicion for endocarditis given her history. Heart murmur heard on exam. - Antibiotics and cultures as above - Echocardiogram in the AM, ordered - Consult Dr. Lee in the AM #. Acute kidney injury. Present on admission. Slowly improving. This is probably glomerulonephritis. - Likely secondary to sepsis and hypotension. Cr increased from 1.08 in October to 8.07. Dr. Monge recommends fluid resuscitation for now and will see in AM. - Dr. Monge of Nephrology has been consulted. We appreciate his input. - NS @ 100 ml/hr - Avoid nephrotoxic agents. We will follow closely. #. Severe thrombocytopenia, acute. Present on admission. Slowly improving. - Pt presents with platelets of 20. Last plt count was 259 on 10/21/16. Presents with bruising and petechiae. Reviewed med list, no meds suspicious for drug induced ITP. Suspicion for hemolysis given elevated LDH of 622, but may be elevated due to sepsis. However, bilirubin was normal at 1.0 and Hb was normal at 13.8. Will recheck CBC and CMP in AM. DIC unlikely as fibrinogen and INR, PT/ PTT normal. TTP also less likely because of normal parameters. Suspect ITP given acutely low platelets and normal bleeding parameters. Pt not actively bleeding but at risk of bleed as she may need a central line in the near future. Will transfuse platelets. She did receive one sixpack of platelets. The platelet count appears to be stable to improving at this point. We will continue to treat the problem which is sepsis and endocarditis. Her platelets over 40,000 today. We will continue to hold heparin. #. Left shoulder pain, acute. Present on admission. Active and improved. - Pt has history of septic joint of the left sternoclavicular joint. We will continue to follow clinically and imaging if necessary. #. Anion gap metabolic acidosis and lactic acidosis, acute. Present on admission , improving. - Secondary to lactic acidosis and PRISCILA. Gap 24. pH 7.26, pCO2 32.6, pO2 110, bicarb 14.2. - Trend lactic acid q2 until normal - Treat underlying causes - Monitor anion gap Lactic acid remains normalized. #. Hypovolemic Hyponatremia, acute. Present on admission. Improving. - Na 126 on admission. Pt receiving NS @ 150 ml/hr - Monitor CMP #. Anasarca, new. Will continue to diuresis and decrease the rate of IV fluid administration while holding norepinephrine constant. History of IV drug abuse. POA and Active with heroin during the week prior to arrival. - Pt has hx of IVDA, last used recently. Last Hep and HIV panels in 2016 were negative. Will reorder HIV given low platelets. - HIV panel ordered - Social work consult History of tobacco use. By mouth and active - Nicotine patch ordered History of seizure disorder. POA and stable. - Continue home lamotrigine Other Chronic Conditions Recurrent UTIs. Ongoing IV drug use with heroin and meth. History of gonorrhea. History of recurrent soft tissue infections. Asthma MSSA tricuspid valve endocarditis Septic pulmonary emboli secondary to endocarditis Septic left sternoclavicular joint secondary to IVDA Disposition plan. She will remain in the hospital for weeks, possibly as long as a 6 week course of IV antibiotics will be needed. We will also address whether or not she will need a tricuspid valve replacement. We will likely repeat echo and cardiology way he had with their opinion next 2-3 days. She may be old complete medical therapy noted [facility] swing bed. Dangerous medications include IV daptomycin and IV morphine All imaging and laboratory data was reviewed Case was discussed with Dr. Lee, infectious disease independent crop consultant. The patient will need to be reviewed by cardiology to see if she will require valve replacement and transfer to a cardiothoracic surgery capable institution in the next 2-3 days. VTE Prophylaxis: Other (Pt has thrombocytopenia - no DVT prophylaxis for now.) VTE Mechanical Devices: Intermittant Pneumatic CD Resuscitation Status: CPR: Attempt Resuscitation Miutl Barrera MD Feb 19, 2017 12:39
--- NOTE | 2017-02-19 19:15 | NUR ---
Max T 37.3 this shift/Albumin 1st dose/Bicarb gtt/Lasix cypohwrb=[id number] uop.
[2017-02-19] MEDS: Norepineph 8,000 mCg/250 mL NS 8,000 MCG in IV Premix 1 EACH IV SCH (19:36)
[2017-02-20] MEDS: Nafcillin Inj 2,000 MG in Dextrose 5% Minibag Plus 100 ML IV SCH ×7 (01:15→23:58)
[2017-02-20] MEDS: DEXTROSE 5% IV SCH ×3 (01:15→23:09)
[2017-02-20] MEDS: SODIUM BICARB IV SCH ×3 (01:15→23:09)
[2017-02-20] MEDS: Albumin 25% 25 GM in IV Premix 1 EACH IV SCH (01:15)
[2017-02-20 01:25] VITALS: BP 116/83; PULSE 122; RESP 32; O2SAT 94
[2017-02-20 05:14] VITALS: BP 100/54; PULSE 109; RESP 26; O2SAT 94
[2017-02-20] MEDS: Norepineph 8,000 mCg/250 mL NS 8,000 MCG in IV Premix 1 EACH IV SCH ×2 (06:06→19:41)
[2017-02-20 08:00] VITALS: BP 102/54; PULSE 105; RESP 28; O2SAT 95
[2017-02-20] MEDS: lamoTRIgine 100 mg Tablet PO SCH ×2 (08:04→19:42)
[2017-02-20] MEDS: hydrOXYzine Pamoate 25 mg Capsule PO SCH ×2 (08:04→12:22)
[2017-02-20] MEDS: Furosemide 10 mg/mL 10 mL Inj IVPUSH SCH (08:04)
[2017-02-20] MEDS ORDERED: KCl 40 mEq/100 mL (CENTRAL) 40 MEQ in IV Premix 1 EACH IV ONE ×3 (08:30→23:35)
--- NOTE | 2017-02-20 08:35 | PCM.PNMED ---
Subjective Date of Service Feb 20, 2017 Subjective She is having a lot of ongoing bilateral shoulder pain. She denies any dyspnea but does have a dry cough. No palpitations or chest pain. She denies any abdominal pain but does have generalized anasarca from fluid resuscitation. She also has anorexia and is very weak. No overnight events, she remains on norepinephrine Exam Vital Signs Vital Sign - Last Date Time Temp Pulse Resp B/P Pulse Ox O2 Delivery O2 Flow Rate FiO2 02/20/17 05:14 37.6 109 26 100/54 94 Room Air 02/17/17 04:18 2.00 Intake and Output 02/19/17 02/19/17 02/20/17 Cumulative From/Thru 15:00 23:00 07:00 02/16/17 23:36 - 02/20/17 05:19 Intake Total 1186 ml 49059 ml Output Total 1600 ml 4690 ml Balance -414 ml 75356 ml Intake Oral 150 ml 2110 ml IV Total 1036 ml 37464 ml Platelets 490 ml Output Urine Total 1600 ml 4690 ml # Bowel Movements 1 1 Exam Alert and oriented -3, no distress. Fluent speech, lethargic. She has gross anasarca of the face arms hands and legs as well as sheet. Anicteric sclera. Lungs are clear with normal rate and effort. Some expiratory wheezing. Heart is regular without murmur gallop or rub Abdomen soft nontender, distended. No organomegaly. Extremities are free of edema. Skin is free of rash or lesions. She has normal motor strength of arms and legs She tolerates internal/external rotation of both shoulders without difficulty but any other movement of the shoulders causes pain. Her clavicles are nontender to palpation. IVs and Medications Medications Reviewed: Medications were reviewed in detail Lab and Diagnostics Result Diagram: 02/19/17 0455 02/20/17 0650 X-Rays, CTs and MRIs . X-RAY CHEST ONE VIEW, PORTABLE IMPRESSION: Diffuse bilateral patchy air space opacities suspicious for pneumonia. Dictated by: Delon LEYVA Interpreted: Jose Enrique York MD on 02/17/2017 X-RAY CHEST ONE VIEW, PORTABLE IMPRESSION: 1. Right internal jugular central venous catheter is in expected position. No pneumothorax. 2. Bilateral septic emboli as before. Dictated by: Lance Dan M.D. on 02/17/2017 CT CHEST, ABDOMEN AND PELVIS WITHOUT CONTRAST IMPRESSION: 1. Multiple bilateral cavitary lesions in the lungs consistent with recurrent septic emboli. The differential for these imaging findings includes inflammatory processes as well as metastatic disease but these are less likely given patient's prior history of septic emboli. 2. Slight asymmetric appearance of the right kidney with minimal perinephric stranding. However, evaluation for pyelonephritis is limited in the absence of intravenous contrast. Recommend correlation clinically. There is no hydronephrosis. 3. Mildly prominent bladder wall thickness likely due to incomplete distention. Recommend correlation with urinalysis. Dictated by: Sulaiman Haines M.D. on 02/17/2017 CT BRAIN WITHOUT CONTRAST IMPRESSION: 1. No acute intracranial abnormality. Dictated by: Sulaiman Haines M.D. on 02/17/2017 Cardiac Echo Impressions . Echocardiogram Report Name: RAJANI ALSTON JStudy Mirza e: 02/17/2017 Height : 63 in Hospital Exam Location: [facility] Weight : 155 lb Gender: Female BSA: 1 .7 m2 : 1990 Age: 26 yrs BP: 10 1/64 mmHg Reason For Study: ENDOCARDITIS/SEPSIS Ordering Physician: Stevie Jean Performed By: Hanny Wisdom Referring Physician: CHAPARRO BULL Interpretation Summary Sinus tachycardia. Normal LV size and wall thickness. There is normal LV wall motion and systolic function. EF is 55-60%. There is severe RV dilation with normal wall motion. There is severe RA dilation. There is a 2.5x0.9 cm vegetation on the downstream side of the tricuspid valve leaflet. There is moderate tricuspid regurgittation. There is normal valve structure and function otherwise. Estimated PASP is 42 mm Hg assuming RA pressure of 3 mm Hg. Compared to prior study 08/04/2016 sinus tachycardia is new. RV dilation is new. Vegetation on the tricuspid valve is old. Tricuspid regurgitation is old Assessment & Plan Pt is a 26 y/o female w/ a hx of tricuspid MSSA endocarditis, ongoing IVDA ( meth and heroin), septic PE, pneumonia, presenting to the ED c/o dyspnea. #. Acute sepsis with septic shock. Present on admission. Source is staph endocarditis with secondary bacteremia. This is active. She continues to have positive blood cultures despite her antimicrobial therapy. She remains on norepinephrine. - Pt presents with temp 37.9, HR 145, BP 86/52, WBC 15.4 with left shift, lactic of 2.6. Likely multifactorial. She has a history of UTIs, and UA shows 6- 10 WBCs with moderate bacteria, small leukocyte esterase. Given her IVDA and history of septic PE and endocarditis, bacteremia and endocarditis are high on the differential, especially considering likely multifocal septic pulmonary emboli on chest CT. She also complains of green sputum and flu-like symptoms over the last week, so ruling out pneumonia. LFTs also mildly elevated, but likely due to sepsis. Will monitor CMP. Maintain map of 65, continue fluids at 1:15 hour and wean norepinephrine as able. Infectious disease consultation appreciated. Continue current antibiotics and await cultures. CT scan does reveal septic pulmonary emboli. It seems likely she will need cardiothoracic intervention with a valve replacement. We will begin attempts to transfer today. #. Tricuspid valve endocarditis with Septic pulmonary emboli, acute. Present on admission. Clinically improving. - CT chest showed possible septic pulmonary emboli bilaterally(reviewed by admitting team on admission). High suspicion for endocarditis given her history. Heart murmur heard on exam. - Antibiotics and cultures as above - Echocardiogram in the AM, ordered - Consult Dr. Lee in the AM, plan as above which will likely include a tricuspid valve replacement. #. Acute kidney injury. Present on admission. Continues to improve. This is probably glomerulonephritis. - Likely secondary to sepsis and hypotension. Cr increased from 1.08 in October to 8.07. Dr. Monge recommends fluid resuscitation for now and will see in AM. - Dr. Monge of Nephrology has been consulted. We appreciate his input. - NS @ 100 ml/hr - Avoid nephrotoxic agents. We will follow closely. #. Severe thrombocytopenia, acute. Present on admission. Slowly improving. - Pt presents with platelets of 20. Last plt count was 259 on 10/21/16. Presents with bruising and petechiae. Reviewed med list, no meds suspicious for drug induced ITP. Suspicion for hemolysis given elevated LDH of 622, but may be elevated due to sepsis. However, bilirubin was normal at 1.0 and Hb was normal at 13.8. Will recheck CBC and CMP in AM. DIC unlikely as fibrinogen and INR, PT/ PTT normal. TTP also less likely because of normal parameters. Suspect ITP given acutely low platelets and normal bleeding parameters. Pt not actively bleeding but at risk of bleed as she may need a central line in the near future. Will transfuse platelets. She did receive one sixpack of platelets. The platelet count appears to be stable to improving at this point. We will continue to treat the problem which is sepsis and endocarditis. Her platelets over 40,000 today. We will continue to hold heparin. #. Left shoulder pain, acute. Present on admission. Active and improved. - Pt has history of septic joint of the left sternoclavicular joint. We will continue to follow clinically and imaging if necessary. #. Anion gap metabolic acidosis and lactic acidosis, acute. Present on admission , improving. - Secondary to lactic acidosis and PRISCILA. Gap 24. pH 7.26, pCO2 32.6, pO2 110, bicarb 14.2. - Trend lactic acid q2 until normal - Treat underlying causes - Monitor anion gap Lactic acid remains normalized. #. Hypovolemic Hyponatremia, acute. Present on admission. Improving. - Na 126 on admission. Pt receiving NS @ 150 ml/hr - Monitor CMP #. Anasarca, new and active. Will continue to diuresis and decrease the rate of IV fluid administration while holding norepinephrine constant. History of IV drug abuse. POA and Active with heroin during the week prior to arrival. - Pt has hx of IVDA, last used recently. Last Hep and HIV panels in 2016 were negative. Will reorder HIV given low platelets. - HIV panel ordered - Social work consult History of tobacco use. By mouth and active - Nicotine patch ordered History of seizure disorder. POA and stable. - Continue home lamotrigine Other Chronic Conditions Recurrent UTIs. Ongoing IV drug use with heroin and meth. History of gonorrhea. History of recurrent soft tissue infections. Asthma MSSA tricuspid valve endocarditis Septic pulmonary emboli secondary to endocarditis Septic left sternoclavicular joint secondary to IVDA Disposition plan. We will begin attempts to transfer for cardiothoracic evaluation and services. Dangerous medications include IV daptomycin and IV morphine All imaging and laboratory data was reviewed Case was discussed with Dr. Lee, infectious disease customer service sales consultant. VTE Prophylaxis: Other (Pt has thrombocytopenia - no DVT prophylaxis for now.) VTE Mechanical Devices: Intermittant Pneumatic CD Resuscitation Status: CPR: Attempt Resuscitation Mitul Barrera MD Feb 20, 2017 08:34
[2017-02-20] MEDS: DAPTOmycin Inj 500 MG in 0.9% Sodium Chloride 50 ML IV SCH (09:54)
[2017-02-20 12:00] VITALS: BP 103/61; PULSE 105; RESP 25; O2SAT 94
[2017-02-20] MEDS: Potassium Chloride 20 mEq/15 mL 15mL Oral Soln PO SCH ×3 (13:00→23:59)
--- NOTE | 2017-02-20 13:27 | PCM.PNNEPH ---
Subjective Date of Service Feb 20, 2017 Subjective Hypotensive, on norepinephrine. c/o SOB and generalized swelling. I/O: 4144ml/ 2450ml. on IV lasix 60 mg daily. Bicarb gtt started yesterday, became hypokalemic. Exam Vital Signs Vital Sign - Last Date Time Temp Pulse Resp B/P Pulse Ox O2 Delivery O2 Flow Rate FiO2 02/20/17 12:00 37.5 105 25 103/61 94 Room Air 02/17/17 04:18 2.00 Intake and Output 02/19/17 02/19/17 02/20/17 Cumulative From/Thru 15:00 23:00 07:00 02/16/17 23:36 - 02/20/17 05:19 Intake Total 1186 ml 10402 ml Output Total 1600 ml 4690 ml Balance -414 ml 05446 ml Intake Oral 150 ml 2110 ml IV Total 1036 ml 39703 ml Platelets 490 ml Output Urine Total 1600 ml 4690 ml # Bowel Movements 1 1 Exam GENERAL: The patient in no apparent distress, and alert and oriented x3. Weak. HEENT: Head is normocephalic and atraumatic. PERRLA. Mucous membranes are moist.Puffy eyelids. NECK: (+) JVD, No carotid bruits. LUNGS: coarse crackles L>R. HEART: Normal S1/S2, Regular rate and rhythm, systolic murmur noted. ABDOMEN: Soft, nontender, and mildly distended. Positive bowel sounds. EXTREMITIES: 2+ edema. No cyanosis. SKIN: No ulceration or induration present. Lab and Diagnostics Result Diagram: 02/19/17 0455 02/20/17 0650 X-Rays, CTs and MRIs . X-RAY CHEST ONE VIEW, PORTABLE IMPRESSION: Diffuse bilateral patchy air space opacities suspicious for pneumonia. Dictated by: Delon LEYVA Interpreted: Jose Enrique York MD on 02/17/2017 X-RAY CHEST ONE VIEW, PORTABLE IMPRESSION: 1. Right internal jugular central venous catheter is in expected position. No pneumothorax. 2. Bilateral septic emboli as before. Dictated by: Lance Dan M.D. on 02/17/2017 CT CHEST, ABDOMEN AND PELVIS WITHOUT CONTRAST IMPRESSION: 1. Multiple bilateral cavitary lesions in the lungs consistent with recurrent septic emboli. The differential for these imaging findings includes inflammatory processes as well as metastatic disease but these are less likely given patient's prior history of septic emboli. 2. Slight asymmetric appearance of the right kidney with minimal perinephric stranding. However, evaluation for pyelonephritis is limited in the absence of intravenous contrast. Recommend correlation clinically. There is no hydronephrosis. 3. Mildly prominent bladder wall thickness likely due to incomplete distention. Recommend correlation with urinalysis. Dictated by: Sulaiman Haines M.D. on 02/17/2017 CT BRAIN WITHOUT CONTRAST IMPRESSION: 1. No acute intracranial abnormality. Dictated by: Sulaiman Haines M.D. on 02/17/2017 Cardiac Echo Impressions . Echocardiogram Report Name: RAJANI ALSTON JStudy Mirza e: 02/17/2017 Height : 63 in Hospital Exam Location: [facility] Weight : 155 lb Gender: Female BSA: 1 .7 m2 : 1990 Age: 26 yrs BP: 10 1/64 mmHg Reason For Study: ENDOCARDITIS/SEPSIS Ordering Physician: Stevie Jean Performed By: Hanny Wisdom Referring Physician: CHAPARRO BULL Interpretation Summary Sinus tachycardia. Normal LV size and wall thickness. There is normal LV wall motion and systolic function. EF is 55-60%. There is severe RV dilation with normal wall motion. There is severe RA dilation. There is a 2.5x0.9 cm vegetation on the downstream side of the tricuspid valve leaflet. There is moderate tricuspid regurgittation. There is normal valve structure and function otherwise. Estimated PASP is 42 mm Hg assuming RA pressure of 3 mm Hg. Compared to prior study 08/04/2016 sinus tachycardia is new. RV dilation is new. Vegetation on the tricuspid valve is old. Tricuspid regurgitation is old Plan Impression 1. Infectious glomerulonephritis. - ongoing infection - low C3/C4 with active urine sediment. 2. Fluid overload. 3. Bacterial endocarditis with septic emboli. 4. Hypokalemia. 5. Anion gap metabolic acidosis secondary to uremia and lactic acidosis. Plan: Hold bicarb gtt and resume when K >= 3.5. Replace KCL, need at least 150-200 meq of KCL replacement for today. Double concentrate IV meds. Will give another dose of 25% albumin 100 ml with IV lasix. Adal Garcia MD Feb 20, 2017 13:27 above 90. Adal Garcia MD Feb 20, 2017 13:27
[2017-02-20 16:00] VITALS: BP 105/57; PULSE 117; RESP 26; O2SAT 94
--- NOTE | 2017-02-20 16:04 | NUR ---
Social Work: Initial Assessment Data: Pt is a 26 y/o female admitted for sepsis, PRISCILA. Pt's PCP is not listed, pt's insurance is [employer]. EMR reviewed, readmit score is 4, high. Pt discussed in multidisciplinary rounds, MD states pt likely to remain in hospital for some time unless she transfers to a different hospital, which is a possibility at this time. DIRECTOR OF RELIGIOUS ACTIVITIES met with pt at bedside, role explained. Pt states she lives alone in [place]. She was closed off in her answers and did not give extra detail. Pt states she drives but that she does not have a car. Pt has no hx of HH or SNF, no LTC or VA benefits, and is not a caregiver. CD assessment ordered by MD, see CD assessment for further detail. No further d/c planning needs at this time, DIRECTOR OF RELIGIOUS ACTIVITIES will continue to follow for developing plan. Assessment: Pt who is independent at baseline, IV drug use. Pt currently not capable of self care. Plan: Pt will likely d/c back home via POV with family when medically stable, see CD assessment for further detail. No further d/c planning needs at this time, DIRECTOR OF RELIGIOUS ACTIVITIES will continue to follow for developing plan. BINA Llamas Addendum: 02/20/17 at 1610 by RITA ALFREDO Amended: Links added.
--- NOTE | 2017-02-20 16:14 | NUR ---
Social Work: Chemical Dependency Assessment SOLID FIBER PASTER OPERATOR met with pt regarding Chemical Dependency. Pt states she uses IV heroin and meth and that she was in treatment at [facility] for 3 months and just got out the end of January. She states she only used once and ended up in the hospital. She does not want to go back to inpt but states she is agreeable to meeting with [place] [facility]. Pt signed OZZY, SOLID FIBER PASTER OPERATOR placed in pt's chart. SOLID FIBER PASTER OPERATOR gave pt outpt CD resources as CDP will not be in until Tuesday, but if pt remains in hospital until Tuesday, CDP will meet with her. Pt states she was in pain and was done talking, SOLID FIBER PASTER OPERATOR did not get to complete the rest of the assessment. SOLID FIBER PASTER OPERATOR will follow up with [place] [facility] on progress with pt. BINA Llamas
[2017-02-20] MEDS ORDERED: GABA600T2 PO (16:47)
[2017-02-20] MEDS ORDERED: APIX5TAB PO (16:49)
[2017-02-20] MEDS ORDERED: TOPI-31 PO (16:54)
--- NOTE | 2017-02-20 17:59 | NUR ---
Appetite/activity/HR Pt having decreased appetite, just nibbling on fruit and jello and sips of water and sprite. Pt refusing most repositioning but will sometimes let us turn her. HR ST from 105 this AM, increasing to 155-120 during afternoon. Temp remains afebrile during most of shift. Frequent rounding continues, giving morphine 2mg q6h PRN pain. Mom at bedside during part of shift.
[2017-02-20] MEDS ORDERED: Albumin 25% 25 GM in IV Premix 1 EACH IV ONE (18:00)
[2017-02-20] MEDS ORDERED: Furosemide 10 mg/mL 10 mL Inj IVPUSH ONE (18:00)
[2017-02-20 20:35] VITALS: BP 98/40; PULSE 118; RESP 28; O2SAT 95
[2017-02-20] MEDS ORDERED: Potassium Phos (mEq) Inj 40 MEQ in Dextrose 5% 500 ML IV ONE (23:20)
[2017-02-21 00:35] VITALS: BP 101/58; PULSE 107; RESP 26; O2SAT 94
[2017-02-21] MEDS: Ondansetron 2 mg/mL 2 mL Inj IVPUSH PRN ×3 (03:54→19:38)
[2017-02-21] MEDS: Nafcillin Inj 2,000 MG in Dextrose 5% Minibag Plus 100 ML IV SCH ×2 (04:30→08:21)
[2017-02-21] MEDS: Dextromethorphan Polistirix 6 mg/mL 90 mL Suspension PO PRN ×3 (04:31→16:00)
[2017-02-21 04:35] VITALS: BP 107/57; PULSE 103; RESP 26; O2SAT 96
--- NOTE | 2017-02-21 05:13 | NUR ---
Cough/Stool Pt cough worsened throughout night. She also has diarrhea and urgency when she has to have a BM (stool is brown and loose). While she was using BSC she started to cough even more and vomited. IV meds given for nausea. MD notified of cough and orders for cough suppressant received and implemented. Holding on med for diarrhea for day team decision. pt aware of plan> Care ongoing
[2017-02-21 05:34] LABS: Mean Corpuscular Volume 88 fL (81-100)
[2017-02-21 05:35] LABS: BASOPHILS % (AUTO) 0.6 % (0-3); EOSINOPHILS % (AUTO) 0.5 % (0-5); MONOCYTES % (AUTO) 4.8 % (4-12); Mean Corpuscular Hemoglobin 30.9 pg (27.0-35.0); NEUTROPHILS % (AUTO) 82 % (40-74); Platelet Count 178 bil/L (150-400)
[2017-02-21] MEDS: Potassium Chloride 20 mEq/15 mL 15mL Oral Soln PO SCH ×3 (06:08→18:20)
[2017-02-21 08:00] VITALS: BP 104/62; PULSE 110; RESP 25; O2SAT 94
[2017-02-21] MEDS: hydrOXYzine Pamoate 25 mg Capsule PO SCH ×2 (08:20→12:41)
[2017-02-21] MEDS: Furosemide 10 mg/mL 10 mL Inj IVPUSH SCH (08:21)
[2017-02-21] MEDS: lamoTRIgine 100 mg Tablet PO SCH ×2 (08:21→19:42)
--- NOTE | 2017-02-21 10:45 | NUR ---
NUTRITION FOLLOW UP: ASSESS: 26 YO F admitted to CCU for sepsis, PRISCILA with infectious glomerulonephritis, and endocarditis. Pt has history of IVD abuse. Pt reported profound weakness for the last week so she likely had poor PO intake prior to admit. She is on a general diet with poor PO intake X 4 days. ID and nephrology are involved. PMHX: Endocarditis, IVDA (meth and heroine), PE, PNA LABS: Reviewed. BUN 49, Cr 4.36, Glu 1313, Ca 7.6, AST 58, ALT 34, Alb 3.0 MEDS: Reviewed. Lasix, Pressors GI: 2 BM (02/21) SKIN: rash on arms and right breast. Anasarca. CURRENT WT: 82.4 kg, BMI 32.2 kg/m2, IBW: 52.3 kg DIET: General, PO intake refusal-bites. ESTIMATED NEEDS: PRISCILA Calories: 5883-4554 kcal/day (25-30 kcal/kg BW) Protein: 55-70 g/day (0.8-1.0 g/kg BW) NUTRITION DIAGNOSIS: 1.) Inadequate oral intake related to chronic disease as evidence by reported weakness prior to admit and history of endocarditis and IVD use.---PERSISTS. NUTRITION INTERVENTION: 1.) Continue current diet as ordered, will add nutrition supplements to encourage adequate nutrition. MONITOR/EVALUATE: PO, wt, GI, labs, POC, nutrition status. Follow per moderate nutrition risk guidelines
--- NOTE | 2017-02-21 11:12 | PROG NOTE ---
[address] [address] PROGRESS NOTE PATIENT: RAJANI ALSTON : 1990 MR#: [id number] ADMIT: 02/17/2017 JOB ID: [id number] DATE: 02/21/2017 REASON FOR FOLLOW UP: Tricuspid valve endocarditis with ongoing shock, septic pulmonary emboli, renal failure and bilateral shoulder pain. INTERVAL HISTORY: Over the weekend, the patient has remained critically ill. She is awake, alert, complains of really total body pain but especially pain in both shoulders. She notes that her sternoclavicular joints, which had been septic on an earlier admission on the left side, do not hurt. She has some headache, some trouble breathing, minimal cough. No abdominal pain and no trouble in terms of bowel function or regulation. She has a Neff catheter in place. She notes that her legs are starting to swell. She has minimal appetite. PHYSICAL EXAMINATION: Reveals a woman who appears critically ill, lying in the ICU. past 24 hours, 38.2, currently 37.6, pulse is about 105, respiratory rate 26, blood pressure 107/57. She is saturating 96% on 2 L. She looks overall critically ill. Examination of the mental status reveals that she is lucid. Her eyes without conjunctivitis. Oral cavity without change, normal basically. Lungs with scattered few rales at the bases. Cardiac tones, I believe I hear an S3, though I defer to the rn palliative who will be seeing the patient later today. It is difficult to tell if she has a murmur, though I think there may be a soft systolic murmur in there as well. The abdomen is slightly distended, but not tender. No focal abnormalities are seen. We sat the patient up and I carefully palpated her spine. She is tender from about C3 down to about T10, and it does not seem that any one level is more tender than another. She has excellent strength in her lower extremities and normal sensation. She has mild peripheral edema which is new since admission. A Neff catheter is present. No skin rash is noted. No peripheral stigmata of endocarditis. LABORATORIES: Include a white count which is rising, now 24,000, platelet count has improved from very low levels on admission to normal at 178 this morning, still with left shift. Her creatinine is 4.36. It is improving, but improving more and more slowly than it did previously. Her ALT is unchanged at 34. Albumin 3.0. HELEN is negative. Complement levels are low. Gonorrhea, chlamydia, HIV, hep C all negative. Micro includes MSSA in her blood from February 17 as well as February 19. The previously described coag-negative Staph seen on the admission blood cultures turned out also to be an unusual appearing MSSA. One blood culture bottle on admission also had Strep viridans which seems to be a transient bacteremia of no clinical significance. Recall that her echo shows a 2.5 x 0.9 cm vegetation on the tricuspid valve as well as elevated right-sided filling pressures. IMPRESSION: This extremely unfortunate young woman, who was admitted here just after 2015 with tricuspid endocarditis, septic pulmonary emboli, renal failure and left sternoclavicular septic joint. She eventually recovered from all of that and did well by her report for four months during a drug rehabilitation program, only to relapse and is now back again with tricuspid valve endocarditis, septic pulmonary emboli and renal failure. What is different this time is she has ongoing and refractory shock still requiring norepinephrine at moderately high doses. In addition, her renal failure is improving but slower than we might expect by day five or so of therapy. My current concern is that she may require valve replacement to save her life. Usual criteria for valve replacement include persistent bacteremia which does not resolve with antibiotics, large vegetation size or congestive heart failure, or in her case a left-sided endocarditis major emboli. She needs at least two of these criteria in that she is in refractory shock despite now five days of IV antibiotic therapy, and she has persistently positive blood cultures as well as having a very large vegetation. RECOMMENDATIONS: 1. We will continue to use renally adjusted daptomycin plus high-dose nafcillin for this MSSA process. 2. I am going to avoid the use of gentamicin because its use in poarch valve MSSA endocarditis is controversial based on the best recent data and she already has renal failure. 3. I have discussed this case in person with Cardiology this morning and think we need to strongly consider moving her to a center that could replace her tricuspid valve or debride it, or remove it or in some way affect the trajectory of this unfortunate young woman's case. 4. This case was discussed exhaustively during ICU rounds.
[2017-02-21] MEDS: DEXTROSE 5% IV SCH ×6 (11:31→20:42)
[2017-02-21] MEDS: SODIUM BICARB IV SCH ×3 (11:31→20:42)
--- NOTE | 2017-02-21 11:53 | PCM.PNNEPH ---
ERI XAVIER DO 02/21/17 1153: Subjective Date of Service Feb 21, 2017 Subjective Overnight: Cough worsened throughout the night with onset of diarrhea and vomiting. Blood pressure remained low 100s over 50s, norepinephrine continues Today: Patient somnolent but alert. She remains critically ill complaining of total body pain for most specifically both shoulders. Urinary output is 200 mL last 24 hours. IV Lasix 60 daily continues. Hypokalemia resolved Exam Vital Signs Vital Sign - Last Date Time Temp Pulse Resp B/P Pulse Ox O2 Delivery O2 Flow Rate FiO2 02/21/17 08:00 38.0 110 25 104/62 94 Room Air 02/21/17 04:35 2.00 Intake and Output 02/20/17 02/20/17 02/21/17 Cumulative From/Thru 15:00 23:00 07:00 02/16/17 23:36 - 02/21/17 06:00 Intake Total 869 ml 1427 ml 59276 ml Output Total 2700 ml 2400 ml 88335 ml Balance -1831 ml -973 ml 32522 ml Intake Oral 2110 ml IV Total 869 ml 1427 ml 18289 ml Tube Feeding 400 ml Platelets 490 ml Output Urine Total 2700 ml 2400 ml 40333 ml # Bowel Movements 2 3 Exam General: No acute distress, somnolent, alert and oriented 3. HEENT: Normocephalic, atraumatic. External ears without defect. Pupils equal, round, and reactive to light and accommodation. moist mucosa. Neck: Supple with full range of motion. Mild JVD. No bruits. Cardiovascular: Regular rate and rhythm. Unable to appreciate murmur. Pulmonary: Bilateral crackles Abdomen: Bowel tones present. Soft, nontender, mildly distended. Extremities: No clubbing, cyanosis, mild peripheral edema Skin: Normal temperature, turgor, and texture Neurological: Cranial nerves grossly intact. Psychiatric: Normal mood and affect. Alert and oriented to person, place, and time. IVs and Medications Medications Reviewed: Medications were reviewed in detail Lab and Diagnostics Result Diagram: 02/21/1743902/21/17439 X-Rays, CTs and MRIs . X-RAY CHEST ONE VIEW, PORTABLE IMPRESSION: Diffuse bilateral patchy air space opacities suspicious for pneumonia. Dictated by: Delon LEYVA Interpreted: Jose Enrique York MD on 02/17/2017 X-RAY CHEST ONE VIEW, PORTABLE IMPRESSION: 1. Right internal jugular central venous catheter is in expected position. No pneumothorax. 2. Bilateral septic emboli as before. Dictated by: Lance Dan M.D. on 02/17/2017 CT CHEST, ABDOMEN AND PELVIS WITHOUT CONTRAST IMPRESSION: 1. Multiple bilateral cavitary lesions in the lungs consistent with recurrent septic emboli. The differential for these imaging findings includes inflammatory processes as well as metastatic disease but these are less likely given patient's prior history of septic emboli. 2. Slight asymmetric appearance of the right kidney with minimal perinephric stranding. However, evaluation for pyelonephritis is limited in the absence of intravenous contrast. Recommend correlation clinically. There is no hydronephrosis. 3. Mildly prominent bladder wall thickness likely due to incomplete distention. Recommend correlation with urinalysis. Dictated by: Sulaiman Haines M.D. on 02/17/2017 CT BRAIN WITHOUT CONTRAST IMPRESSION: 1. No acute intracranial abnormality. Dictated by: Sulaiman Haines M.D. on 02/17/2017 Cardiac Echo Impressions . Echocardiogram Report Name: RAJANI ALSTON JStudy Mirza e: 02/17/2017 Height : 63 in Hospital Exam Location: [facility] Weight : 155 lb Gender: Female BSA: 1 .7 m2 : 1990 Age: 26 yrs BP: 10 1/64 mmHg Reason For Study: ENDOCARDITIS/SEPSIS Ordering Physician: Stevie Duránist Performed By: Hanny Wisdom Referring Physician: CHAPARRO BULL Interpretation Summary Sinus tachycardia. Normal LV size and wall thickness. There is normal LV wall motion and systolic function. EF is 55-60%. There is severe RV dilation with normal wall motion. There is severe RA dilation. There is a 2.5x0.9 cm vegetation on the downstream side of the tricuspid valve leaflet. There is moderate tricuspid regurgittation. There is normal valve structure and function otherwise. Estimated PASP is 42 mm Hg assuming RA pressure of 3 mm Hg. Compared to prior study 08/04/2016 sinus tachycardia is new. RV dilation is new. Vegetation on the tricuspid valve is old. Tricuspid regurgitation is old Plan Impression 1. Infectious glomerulonephritis. - ongoing infection - low C3/C4 with active urine sediment. - Antibiotics per ID, double concentrate dose per pharmacy 2. Fluid overload. - Continue IV Lasix 3. Bacterial endocarditis with septic emboli. - Infectious disease and cardiology follow 4. Hypokalemia. - Potassium 4.0 today - Resume bicarbonate drip 5. Anion gap metabolic acidosis secondary to uremia and lactic acidosis. Adal Garcia MD 02/21/17 1444: Exam Lab and Diagnostics Result Diagram: 02/21/1743902/21/17439 Plan Impression Patient was seen and examined. The case was discussed with Dr. Xavier. Agree with assessment and plan as above. Plan: sodium bicarb gtt is not available, HCO3 now 17, will switch to PO NaHCO3. will give another dose of Iv lasix tonight. double concentrate IV meds. Rajeev Patel MD. ERI XAVIER DO Feb 21, 2017 11:53 Adal Garcia MD Feb 21, 2017 14:44
[2017-02-21 12:00] VITALS: BP 106/59; PULSE 111; RESP 25; O2SAT 94
[2017-02-21] MEDS: Norepineph 8,000 mCg/250 mL NS 8,000 MCG in IV Premix 1 EACH IV SCH (12:42)
--- NOTE | 2017-02-21 14:25 | NUR ---
[facility] : Faxed referral to [facility] per BINA and
[2017-02-21] MEDS: NAFCILLIN IV SCH ×3 (14:51→19:42)
--- NOTE | 2017-02-21 15:05 | CONS ---
[address] [address] CONSULTATION REPORT PATIENT: RAJANI ALSTON : 1990 MR#: [id number] ADMIT: 02/17/2017 JOB ID: [id number] DATE OF SERVICE: 02/21/2017 I have been asked to see this 26-year-old female to determine if it would be appropriate to consider referral for tricuspid valve replacement in the setting of infectious endocarditis. This patient presented late 2015 with tricuspid valve endocarditis with MSSA bacteremia. She had multiple septic pulmonary emboli and gradually improved with antibiotic therapy but had septic left sternal clavicular joint and was ultimately transferred to Cardiothoracic Surgery at [facility] in [place] for consideration of possible debridement. They eventually decided not to debride and she kept was kept on a long course of intravenous antibiotics and her infection gradually resolved. She entered a drug rehab program where she was able to stay off intravenous methamphetamines and heroin, but over the past couple of weeks, had repeated episodes of IV drug use and very shortly thereafter, developed symptoms of cough, pleuritic chest discomfort, fevers and chills, and gradual weakness as well. She was brought to the hospital by her friends and admitted to the hospital on February 16, and cultures have shown recurrent MSSA bacteremia complicated by several other bacterial strains as well. She has continued to have recurrent fevers with a temperature last night as high as 38.2, and remains on intravenous vasopressor support as well. She was appropriately managed with aggressive volume loading over the course of the 1st several days of her hospital stay with her weight increasing from 70 kg up to 83.6 kg, but over the past couple of days, her renal function has improved, and with a combination of IV Lasix and albumin, she has diuresed fairly briskly over the past couple of days. The patient today states that she is very weak and she has a persistent productive cough associated with pleuritic chest discomfort. She is also complaining of bilateral shoulder discomfort, general weakness, and mild anorexia. The patient states that she has not been aware of any signs or symptoms of lower extremity edema or abdominal swelling or distention over the course of the past eight months since her episode of tricuspid valve endocarditis in late 2015. PAST MEDICAL HISTORY: Otherwise predominantly related to her history of IV drug use with both methamphetamines and heroin. She has a history of gonorrhea. Dr. Lee mentions a history of a seizure disorder and recurrent skin and soft tissue infections. She apparently is unemployed and homeless, staying with friends. REVIEW OF SYSTEMS: Otherwise notable for the absence of hemoptysis. She has had no bleeding issues although she presented with a platelet count of 18,000. She has had some generalized pruritus and a rash and no central nervous system issues or complaints. EXAMINATION: Shows a 26-year-old female who is awake and alert. Provides a reasonable history. She is 5 feet 3 inches tall, and weighs 181 pounds. HEENT examination is unremarkable. No scleral icterus. I do not see any oral or mucosal hemorrhages. Neck is supple. Her jugular venous pressure is only very mildly elevated with visible at the mid neck at about 30 degrees. She has rales and rhonchi diffusely in addition to evidence of a left precordial/right ventricular heave and cardiac auscultation is notable for soft holosystolic murmur along the left sternal border with a right ventricular summation gallop noted as well and a fairly prominent P2. Abdomen does not demonstrate any obvious distention. I do not detect any evidence of ascites. Liver is not significantly enlarged, but there is slight amount of hepatic percussion tenderness and the liver does show some degree of systolic pulsation related to the tricuspid insufficiency. Distal extremities are warm without significant edema. She has needle tracks over her feet and upper extremities. There appeared to be perhaps some small splinter hemorrhages in the nail beds of her right hand. No obvious focal musculoskeletal or neurologic abnormalities. I do not detect any obvious swelling, erythema or heat over either shoulder. LABORATORY: Notable for improvement in her serum sodium to 138 today. She remains acidotic. Her creatinine has improved to 4.36. Transaminases are mildly elevated and slightly improved from admission. Chest x-ray shows fairly normal heart size with scattered subtle infiltrates and a chest CT scan shows multiple septic pulmonary emboli throughout both lung sky. Her echocardiogram is reviewed. She has developed significant right ventricular dilatation and significant right ventricular systolic dysfunction related to likely chronic volume overload from severe tricuspid insufficiency. I suspect she has a significant amount of pulmonary hypertension as well related to her history eight months ago of septic pulmonary emboli and her current septic pulmonary emboli as well. Left ventricular systolic function appears normal. I do not see any evidence of left-sided valvular lesions. IMPRESSION: The patient remains febrile with multiple bacterial species in her bloodstream related to recent intravenous drug use. Her vegetation to me appears much more sclerotic than it did on her echocardiogram eight months ago. I suspect it is the same vegetations since it affects the same valve, but it looks like an old vegetation given the density and sclerosis. She clearly has evidence of severe tricuspid insufficiency and moderate pulmonary hypertension. At this point in time, I do not feel that she is a candidate to consider tricuspid valve surgery. I think she has had progressive right ventricular dysfunction related again to the tricuspid regurgitation and pulmonary hypertension. To be considered for cardiothoracic surgery, her blood would need to be sterilized and it is unlikely that Cardiothoracic Surgery would consider tricuspid valve surgery without the patient committing to long-term drug rehab and abstinence from intravenous drug use. I have spoken with Dr. Benji Dixon at [facility], who is in agreement. He would be more than happy to see this patient in consultation as an outpatient, once her active infection is treated to consider tricuspid valve repair or replacement for severe chronic tricuspid insufficiency, depending upon the patient's clinical course and willingness to follow up with drug rehab program and abstinence from IV drug use. Overall, her prognosis appears relatively poor. I will follow up with the patient's clinical course over the week with you. For today, I would recommend more aggressive volume loading. Her central venous pressure is probably only mildly elevated and I suspect she is quite volume sensitive and will require high right ventricular filling pressures to optimize cardiac output, and I suspect with more aggressive volume loading, it may be possible to taper and discontinue inotropic support.
[2017-02-21 16:00] VITALS: BP 102/72; PULSE 114; RESP 28; O2SAT 97
--- NOTE | 2017-02-21 17:09 | NUR ---
Oxygenation/activity Pt intermittently desats to high 80s and has a dry, intermittent cough. Using PRN delsym that is effective for her and put her on 2L NC which she takes off and on intermittently. Sometimes refuses med and/or patient care. Turning somewhat independently in bed, although she states it is painful for her. Encouraging her to keep moving around to keep skin intact. Giving PRN 2mg morphine for pain 4/10 on FELDT score. RASS -1 most of shift.
--- NOTE | 2017-02-21 17:59 | PCM.PNMED ---
Subjective Date of Service Feb 21, 2017 Subjective Overnight the patient intermittently desatted to the high 80s. She continues to cough, and her pressor requirement remains 0.15 mg/kg. the patient states that she feels she has made very little improvement, although her anasarca has decreased somewhat. She denies fevers, chills, nausea, vomiting, but still feels very ill. Discussion with infectious disease and cardiology today for possible transport planning for valve replacement. Discussed this with Dr. Patel who states that she is an extremely poor candidate due to her ongoing bacteremia and severe sepsis, as well as her recurrent drug use. He was able to review the echo today and states that the patient's right ventricle is dysfunctional. Exam Vital Signs Vital Sign - Last Date Time Temp Pulse Resp B/P Pulse Ox O2 Delivery O2 Flow Rate FiO2 02/21/17 16:00 37.8 114 28 102/72 97 Nasal Cannula 2.00 Intake and Output 02/20/17 02/20/17 02/21/17 Cumulative From/Thru 15:00 23:00 07:00 02/16/17 23:36 - 02/21/17 06:00 Intake Total 869 ml 1427 ml 22125 ml Output Total 2700 ml 2400 ml 61214 ml Balance -1831 ml -973 ml 66078 ml Intake Oral 2110 ml IV Total 869 ml 1427 ml 95337 ml Tube Feeding 400 ml Platelets 490 ml Output Urine Total 2700 ml 2400 ml 32863 ml # Bowel Movements 2 3 Exam General: Toxic appearing age-appropriate female HEENT: PERRLA, EOMI, nonicteric, membranes moist Lymph: No lymphadenopathy Cardio: Regular rate and rhythm; 1/6 systolic murmur over the lower left sternal border Respiratory: CTA bilaterally, no wheezes, no crackles Abdomen: Soft, positive bowel sounds, nontender, nondistended Extremities: No edema, 4/5 strength, sensation intact Psych: Flat affect and toxic Neuro: CN II through XII grossly intact, sensation intact throughout Skin: No rash IVs and Medications Medications Reviewed: Medications were reviewed in detail Lab and Diagnostics Result Diagram: 02/21/1743902/21/17439 X-Rays, CTs and MRIs . X-RAY CHEST ONE VIEW, PORTABLE IMPRESSION: Diffuse bilateral patchy air space opacities suspicious for pneumonia. Dictated by: Delon LEYVA Interpreted: Jose Enrique York MD on 02/17/2017 X-RAY CHEST ONE VIEW, PORTABLE IMPRESSION: 1. Right internal jugular central venous catheter is in expected position. No pneumothorax. 2. Bilateral septic emboli as before. Dictated by: Lance Dan M.D. on 02/17/2017 CT CHEST, ABDOMEN AND PELVIS WITHOUT CONTRAST IMPRESSION: 1. Multiple bilateral cavitary lesions in the lungs consistent with recurrent septic emboli. The differential for these imaging findings includes inflammatory processes as well as metastatic disease but these are less likely given patient's prior history of septic emboli. 2. Slight asymmetric appearance of the right kidney with minimal perinephric stranding. However, evaluation for pyelonephritis is limited in the absence of intravenous contrast. Recommend correlation clinically. There is no hydronephrosis. 3. Mildly prominent bladder wall thickness likely due to incomplete distention. Recommend correlation with urinalysis. Dictated by: Sulaiman Haines M.D. on 02/17/2017 CT BRAIN WITHOUT CONTRAST IMPRESSION: 1. No acute intracranial abnormality. Dictated by: Sulaiman Haines M.D. on 02/17/2017 Cardiac Echo Impressions . Echocardiogram Report Name: RAJANI ALSTON JStudy Mirza e: 02/17/2017 Height : 63 in Hospital Exam Location: [facility] Weight : 155 lb Gender: Female BSA: 1 .7 m2 : 1990 Age: 26 yrs BP: 10 1/64 mmHg Reason For Study: ENDOCARDITIS/SEPSIS Ordering Physician: Stevie Jean Performed By: Hanny Wisdom Referring Physician: CHAPARRO BULL Interpretation Summary Sinus tachycardia. Normal LV size and wall thickness. There is normal LV wall motion and systolic function. EF is 55-60%. There is severe RV dilation with normal wall motion. There is severe RA dilation. There is a 2.5x0.9 cm vegetation on the downstream side of the tricuspid valve leaflet. There is moderate tricuspid regurgittation. There is normal valve structure and function otherwise. Estimated PASP is 42 mm Hg assuming RA pressure of 3 mm Hg. Compared to prior study 08/04/2016 sinus tachycardia is new. RV dilation is new. Vegetation on the tricuspid valve is old. Tricuspid regurgitation is old Assessment & Plan Pt is a 26 y/o female w/ a hx of tricuspid MSSA endocarditis, ongoing IVDA ( meth and heroin), septic PE, pneumonia, presenting to the ED c/o dyspnea. Acute sepsis with septic shock. Present on admission; ongoing - Pt presents with temp 37.9, HR 145, BP 86/52, WBC 15.4 with left shift, lactic of 2.6. - Staph endocarditis with secondary bacteremia with persistently positive blood cultures at 5 days; CT positive for mycotic pulmonary embolism - She remains on norepinephrine which is concerning at day 5 - White count increased today despite being on daptomycin and nafcillin - Discussed with Dr. Jesus PEREZ whose note is available in the chart - We norepinephrine was able to maintain map of 65 or greater -We will hold diuresis due to right-sided heart failure Right ventricular heart failure with anasarca; present on admission; ongoing -Severe right ventricular dilation and tricuspid regurg, with pulmonary hypertension likely secondary to pulmonary embolisms -We will start diuresis today 02/21/17 -Hold fluids -Cardiology was consulted -Likely reason I ordered norepinephrine continues to be needed -Albumin 25 mg every 8 hr tomorrow Tricuspid valve endocarditis with Septic pulmonary emboli, acute. Present on admission. Ongoing - CT chest showed possible septic pulmonary emboli bilaterally - Antibiotics and cultures as above - Echocardiogram demonstrates right sided heart failure due to pulmonary hypertension secondary to recurrent embolisms - Patient will eventually need a tricuspid valve replacement although this is critical at the moment and patient is a poor candidate - Discussed valve replacement and cardiac standpoint and with Dr. Patel who recommends discontinuing diuresis - Dr. Patel also talked to cardiology at [facility] states a candidate is not a candidate at the moment and will require 6 weeks of antibiotics in 6 months off heroin Severe acute kidney injury. Present on admission. Resolved - Likely secondary to sepsis and hypotension. C3/C4 decrease indicating likely infectious glomerulonephritis - Creatinine initially greater than 8 and now reduced to 4.17 - Nephrology consultation and Dr. Patel currently seeing the patient - Avoid nephrotoxic agents. Severe thrombocytopenia, acute. Present on admission. Result - Platelets reached as low as 31 -Cholesterol this is due to sepsis, DIC, or side effect of her IV drug use Left shoulder pain, acute. Present on admission. Improving - Pt has history of septic joint of the left sternoclavicular joint. - We will continue to follow clinically and imaging if necessary. Anion gap metabolic acidosis and lactic acidosis, acute. Present on admission, improving. - Secondary to lactic acidosis and PRISCILA. Gap 24. pH 7.26, pCO2 32.6, pO2 110, bicarb 14.2. - Trend lactic acid q2 until normal lactic acid resolved - Lactic acid in a.m. - Of 18 on 02/21/17 Hypovolemic Hyponatremia, acute. Present on admission. Resolved - Na 126 on admission. Pt receiving NS @ 150 ml/hr - Monitor CMP History of IV drug abuse. POA and Active with heroin during the week prior to arrival. - Pt has hx of IVDA, last used recently. Last Hep and HIV panels in 2016 were negative. Will reorder HIV given low platelets. - HIV panel ordered - Social work consult History of tobacco use. By mouth and active - Nicotine patch ordered History of seizure disorder. POA and stable. - Continue home lamotrigine Disposition: His prognosis is guarded at this time she is not a great candidate for valve replacement and this would likely not improve her current status. We will continue to positive cultures and wean down pressors as tolerated. As the patient has right heart failure, preloaded paramount. Will continue with albumin tomorrow morning aggressive here. We will recheck patient's blood work tomorrow hopes that her white count begins to resolve and her lactic acid continues to be normal. VTE Prophylaxis: Other (Pt has thrombocytopenia - no DVT prophylaxis for now.) VTE Mechanical Devices: Intermittant Pneumatic CD Resuscitation Status: CPR: Attempt Resuscitation Attending Statement The patient was seen and examined together with Dr. Noguera on February 22 and I agree with the history, exam findings, and plan as outlined in the note above. I did participate in all aspects of the services provided today, including documentation and the plan of care. We will continue to treat the patient for endocarditis with antibiotics. She continues to require norepinephrine. Cristian Noguera DO Feb 21, 2017 17:59 Mitul Barrera MD Feb 22, 2017 14:38
[2017-02-21] MEDS ORDERED: DEXTROMETHORPHAN PO PRN (19:35)
[2017-02-21 19:50] VITALS: BP 107/59; PULSE 16; RESP 36; O2SAT 97
[2017-02-22] VITALS (7 sets, daily range): BP systolic 96–123; BP diastolic 51–75; PULSE 93–114; RESP 23–31; O2SAT 94–98
[2017-02-22] MEDS ORDERED: Albumin 25% 25 GM in IV Premix 1 EACH IV ONE ×2 (00:30→14:25)
[2017-02-22] MEDS: NAFCILLIN IV SCH ×7 (00:55→23:54)
[2017-02-22] MEDS: DEXTROSE 5% IV SCH ×8 (00:55→23:54)
[2017-02-22] MEDS: Dextromethorphan Polistirix 6 mg/mL 90 mL Suspension PO PRN ×6 (00:56→18:45)
[2017-02-22] MEDS: Ondansetron 2 mg/mL 2 mL Inj IVPUSH PRN ×3 (01:17→18:40)
[2017-02-22] MEDS: SODIUM BICARB IV SCH (02:12)
[2017-02-22 05:13] LABS: BASOPHILS % (AUTO) 0.4 % (0-3); EOSINOPHILS % (AUTO) 0.5 % (0-5); MONOCYTES % (AUTO) 5.5 % (4-12); Mean Corpuscular Hemoglobin 30.9 pg (27.0-35.0); Mean Corpuscular Volume 88.8 fL (81-100); Platelet Count 255 bil/L (150-400)
[2017-02-22] MEDS ORDERED: KCl 40 mEq/100 mL (CENTRAL) 40 MEQ in IV Premix 1 EACH IV ONE ×2 (06:50→19:20)
--- NOTE | 2017-02-22 07:42 | NUR ---
COugh/Pain/Labs Pt reports intolerable cough. Also reports generalized pain with coughing. MD notified. Orders to increase frequency of cough syrup and oral pain meds received and implemented. Pt states that regimen is working so far. AM labs received with low K of 2.8. MD notified. Awaiting orders. Care ongoing
[2017-02-22] MEDS ORDERED: Potassium Chloride 20 mEq SR Tablet PO ONE ×2 (08:10→19:20)
[2017-02-22] MEDS ORDERED: KCl 40 mEq/D5W 500 mL 40 MEQ in IV Premix 1 EACH IV ONE (08:10)
[2017-02-22] MEDS: hydrOXYzine Pamoate 25 mg Capsule PO SCH ×2 (08:30→12:00)
[2017-02-22] MEDS: lamoTRIgine 100 mg Tablet PO SCH ×2 (08:30→20:25)
[2017-02-22] MEDS: DAPTOmycin Inj 500 MG in 0.9% Sodium Chloride 50 ML IV SCH ×2 (08:30→15:00)
[2017-02-22] MEDS: Norepineph 8,000 mCg/250 mL NS 8,000 MCG in IV Premix 1 EACH IV SCH (10:00)
--- NOTE | 2017-02-22 10:36 | PROG NOTE ---
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 INTERVAL HISTORY: The patient is slightly better than yesterday and that she is able to get along with less supplemental oxygen and reports her shortness of breath may be slightly better, but overall she remains critically ill. Today, she notes both fevers and chills as well as increasing left shoulder pain. She continues to have minimal cough, but with some pleuritic chest pain and also reports the new onset of diarrhea. PHYSICAL EXAMINATION: Reveals a seriously ill young woman still dependent on norepinephrine at 0.1 mcg/kg per minute. Her temperatures have been ranging between 38 and 39 degrees, 39 last night, this morning 38. Pulse is sinus at 110-115, respiratory rate in the 20s, blood pressure 103/68, on norepinephrine as mentioned. This morning she was able to take off her supplemental oxygen and is saturating surprisingly well on room air. Head without any change. Eyes without conjunctival hemorrhage. Oral cavity negative. Mental status is clear. Lungs with a few crackles bilaterally. Cardiac tones tachycardia, regular rate and rhythm but without murmur. Abdomen is relatively benign. The patient's left shoulder is basically nontender without erythema when she is lying at rest, but when she attempts to move it she complains of severe pain and when I move it passively she has moderately severe pain in the left shoulder joint. Sternoclavicular joint on the left, which was obviously infected during her last admission with endocarditis, is not tender today. No skin rash noted. LABORATORIES: Include white count 20,000 which is basically bouncing around and unchanged. The diff is improving, however, we are down to 77% segs. Her creatinine is 3.59, which is improved considerably overnight. LFTs have normalized. Procalcitonin is 4.17 and I have no idea what that number means and I am not certain we should check any further. Urinalysis 6-10 white cells. ANCA is pending. Hep C and HIV negative. Micro studies include the high-grade Staph aureus bacteremia found on admission that has continued with positive blood cultures from the . We now have positive blood cultures pending from yesterday which are negative at roughly 24 hours. IMAGING: No new x-rays are available, but the echo was again reviewed from the . It shows 2.5 x 1 cm vegetation on the tricuspid valve. Right atrial right ventricular dilatation is occurring. IMPRESSION: 1. This is an extremely difficult case of a young woman who was admitted with her second case of tricuspid valve endocarditis with septic pulmonary emboli and septic shock in the past eight months. Recall that a very similar event occurred in June 2016. On this occasion, the patient's course has once again been complicated by renal failure which is gradually improving. She has worsening right-sided cardiac function on this admission which is unfortunate and may make her recovery problematic. Her blood cultures continue to be positive at least through the , and we are now waiting on blood cultures from the . She is on maximal antibiotic therapy in that she is on nafcillin with daptomycin and we hope to achieve synergy between these two very potent antibiotics against this methicillin sensitive Staphylococcus aureus isolette. The patient has been evaluated by Cardiology and discussed with CT surgery, who feels that she is not an appropriate candidate for valve surgery at this time. Overall plan with respect to her endocarditis is to continue with maximal antibiotic therapy in attempt to clear her blood cultures and withdraw her from vasopressor agents as her renal function improves. 2. The patient seems to be developing a septic left shoulder. This should be evaluated by Orthopedics and we may need to perform a joint aspirate or washout. 3. The patient's scabies that she had when she came in has resolved. 4. The patient's bryant virus respiratory tract infection is also improving. RECOMMENDATIONS: 1. Will continue with isolation through February 24 or so at which time will consider discontinuing both respiratory and contact isolation. 2. We will continue with our maximal antibiotic coverage without change except to increase the dapto as her renal function improves. 3. Serial blood cultures to be done about every other day. We can consider repeating some tomorrow especially if the ones done yesterday do turn positive. 4. Orthopedics consult should be obtained. 5. Physical therapy probably needs to be involved to start mobilizing this patient as she has been really completely immobile now 4-1/2 days. We need to get her moving. 6. When possible we should remove her Neff catheter. 7. She is having some diarrhea, and I see no problem with the use of Imodium in this situation. 8. This case discussed exhaustively during ICU rounds this morning.
--- NOTE | 2017-02-22 11:00 | PCM.PNNEPH ---
Subjective Date of Service Feb 22, 2017 Subjective Patient's renal function continues to improve and she appears to be in a diuretic phase of acute kidney injury. Her complaint is left shoulder pain and I am suspicious of a left shoulder septic arthritis. Otherwise she denies any chest pain or shortness of breath. Her blood pressures have been averaging in the 100s systolic. Intake and output plus 24-hour shows 2942 and 5200 out. This morning her sodium is 137, potassium 2.8, chloride 99 bicarbonate 21, BUN and creatinine were 42 and 3.59 respectively. Her hemoglobin is 10.5. Exam Vital Signs Vital Sign - Last Date Time Temp Pulse Resp B/P Pulse Ox O2 Delivery O2 Flow Rate FiO2 02/22/17 05:50 38.0 113 26 103/68 97 Room Air 02/21/17 19:50 3.00 Intake and Output 02/21/17 02/21/17 02/22/17 Cumulative From/Thru 15:00 23:00 07:00 02/16/17 23:36 - 02/21/17 17:30 Intake Total 1520 ml 91468 ml Output Total 2800 ml 07004 ml Balance -1280 ml 75632 ml Intake Oral 560 ml 2670 ml IV Total 960 ml 33123 ml Tube Feeding 400 ml Platelets 490 ml Output Urine Total 2800 ml 17992 ml # Bowel Movements 3 Exam HEENT examination is remarkable for pale sclera and moist mucous membranes. Neck is supple without adenopathy, thyromegaly, jugular venous distention. Lungs are clear to auscultation. Heart was regular and rhythmical with a harsh systolic ejection murmur. Abdomen is soft without any tenderness rebound guarding or masses. There is still some generalized stop some I pitting edema throughout her body. Left shoulder shows some mild erythema and tenderness to palpation. Skin turgor is good initial evidence of any rashes. Lab and Diagnostics Result Diagram: 02/22/17 0500 02/22/17 0500 X-Rays, CTs and MRIs . X-RAY CHEST ONE VIEW, PORTABLE IMPRESSION: Diffuse bilateral patchy air space opacities suspicious for pneumonia. Dictated by: Delon LEYVA Interpreted: Jose Enrique York MD on 02/17/2017 X-RAY CHEST ONE VIEW, PORTABLE IMPRESSION: 1. Right internal jugular central venous catheter is in expected position. No pneumothorax. 2. Bilateral septic emboli as before. Dictated by: Lance Dan M.D. on 02/17/2017 CT CHEST, ABDOMEN AND PELVIS WITHOUT CONTRAST IMPRESSION: 1. Multiple bilateral cavitary lesions in the lungs consistent with recurrent septic emboli. The differential for these imaging findings includes inflammatory processes as well as metastatic disease but these are less likely given patient's prior history of septic emboli. 2. Slight asymmetric appearance of the right kidney with minimal perinephric stranding. However, evaluation for pyelonephritis is limited in the absence of intravenous contrast. Recommend correlation clinically. There is no hydronephrosis. 3. Mildly prominent bladder wall thickness likely due to incomplete distention. Recommend correlation with urinalysis. Dictated by: Sulaiman Haines M.D. on 02/17/2017 CT BRAIN WITHOUT CONTRAST IMPRESSION: 1. No acute intracranial abnormality. Dictated by: Sulaiman Haines M.D. on 02/17/2017 Cardiac Echo Impressions . Echocardiogram Report Name: RAJANI ALSTON JStudy Mirza e: 02/17/2017 Height : 63 in Hospital Exam Location: [facility] Weight : 155 lb Gender: Female BSA: 1 .7 m2 : 1990 Age: 26 yrs BP: 10 1/64 mmHg Reason For Study: ENDOCARDITIS/SEPSIS Ordering Physician: Stevie Jean Performed By: Hanny Wisdom Referring Physician: CHAPARRO BULL Interpretation Summary Sinus tachycardia. Normal LV size and wall thickness. There is normal LV wall motion and systolic function. EF is 55-60%. There is severe RV dilation with normal wall motion. There is severe RA dilation. There is a 2.5x0.9 cm vegetation on the downstream side of the tricuspid valve leaflet. There is moderate tricuspid regurgittation. There is normal valve structure and function otherwise. Estimated PASP is 42 mm Hg assuming RA pressure of 3 mm Hg. Compared to prior study 08/04/2016 sinus tachycardia is new. RV dilation is new. Vegetation on the tricuspid valve is old. Tricuspid regurgitation is old Plan Impression Impression #1 staphylococcal pyelonephritis which appears to be resolving #2 hypokalemia secondary to resolving acute kidney injury Recommendations #1 would continue to supplement her potassium both orally and IV. I would hold any further diuretics at this time as she appears to be on a diuretic phase of acute kidney injury. We do need to continue to closely monitor her intake, output, potassium, magnesium, and phosphorus. Abel oMnge DO Feb 22, 2017 11:00
[2017-02-22 13:08] LABS: Antiproteinase 3 (PR-3) Abs <3.5 U/mL (0.0-3.5); Perinuclear (P-ANCA) <1:20 titer (Neg:<1:20)
--- NOTE | 2017-02-22 13:17 | PROG NOTE ---
[address] [address] PROGRESS NOTE PATIENT: RAJANI ALSTON : 1990 MR#: [id number] ADMIT: 02/17/2017 JOB ID: [id number] DATE: 02/22/2017 SUBJECTIVE: The patient continues to have episodic fevers up to close to 39 degrees centigrade. She continues to have a cough with scant sputum production but with moderate amount of pleuritic chest discomfort. She is not complaining of significant dyspnea otherwise. She has no complaints of chest discomfort. Her diuresis continues over the last couple of days. She has not been weighed in the last couple of days. She remains tachycardic with a sinus tachycardia, and a respiratory rate of around 26-30. Blood pressure has been stable and her O2 saturation on room air is normal at 97%. Her examination today is notable for moderate jugular venous distention with a jugular venous pulse noted at the angle of the jaw with the patient at about 45 degrees. Central venous pressure appears higher than yesterday. She has a regular tachycardia with a right ventricular gallop and evidence of a soft right ventricular heave as mentioned yesterday. Interestingly I really do not detect any evidence of significant edema despite the fact that she is 10 kg higher in weight than on admission. She has no lower extremity edema. I did not investigate her dependent sacral area. LABORATORY: Shows a stable hemoglobin of 10.5 with a high white count of 20,000 and her platelet count is normal. Chemistries show moderate hypokalemia with improved renal function. IMPRESSION: Tricuspid valve endocarditis with septic pulmonary emboli complicated by renal failure. Also complicated by pulmonary hypertension, severe tricuspid insufficiency and significant right ventricular enlargement and right ventricular systolic dysfunction. From a cardiac standpoint, she is stable. We will continue to follow clinically for possible cardiac complications.
--- NOTE | 2017-02-22 14:32 | PCM.PNMED ---
Subjective Date of Service Feb 22, 2017 Subjective Patient remains on norepinephrine and continues to have bouts of coughing and diarrhea. Patient also has continuous left shoulder pain which resolved with oxycodone. Exam Vital Signs Vital Sign - Last Date Time Temp Pulse Resp B/P Pulse Ox O2 Delivery O2 Flow Rate FiO2 02/22/17 05:50 38.0 113 26 103/68 97 Room Air 02/21/17 19:50 3.00 Intake and Output 02/21/17 02/21/17 02/22/17 Cumulative From/Thru 15:00 23:00 07:00 02/16/17 23:36 - 02/21/17 17:30 Intake Total 1520 ml 64574 ml Output Total 2800 ml 77659 ml Balance -1280 ml 64484 ml Intake Oral 560 ml 2670 ml IV Total 960 ml 32051 ml Tube Feeding 400 ml Platelets 490 ml Output Urine Total 2800 ml 68274 ml # Bowel Movements 3 Exam General: Toxic appearing age-appropriate female HEENT: PERRLA, EOMI, nonicteric, membranes moist Lymph: No lymphadenopathy Cardio: Regular rate and rhythm; 2/6 systolic murmur over the lower left sternal border (increased since yesterday) Respiratory: CTA bilaterally, no wheezes, no crackles Abdomen: Soft, positive bowel sounds, nontender, nondistended Extremities: No edema, 4/5 strength, sensation intact Psych: Flat affect and toxic Neuro: CN II through XII grossly intact, sensation intact throughout Skin: No rash IVs and Medications Medications Reviewed: Medications were reviewed in detail Lab and Diagnostics Result Diagram: 02/22/17 0500 02/22/17 0500 X-Rays, CTs and MRIs . X-RAY CHEST ONE VIEW, PORTABLE IMPRESSION: Diffuse bilateral patchy air space opacities suspicious for pneumonia. Dictated by: Delon LEYVA Interpreted: Jose Enrique York MD on 02/17/2017 X-RAY CHEST ONE VIEW, PORTABLE IMPRESSION: 1. Right internal jugular central venous catheter is in expected position. No pneumothorax. 2. Bilateral septic emboli as before. Dictated by: Lance Dan M.D. on 02/17/2017 CT CHEST, ABDOMEN AND PELVIS WITHOUT CONTRAST IMPRESSION: 1. Multiple bilateral cavitary lesions in the lungs consistent with recurrent septic emboli. The differential for these imaging findings includes inflammatory processes as well as metastatic disease but these are less likely given patient's prior history of septic emboli. 2. Slight asymmetric appearance of the right kidney with minimal perinephric stranding. However, evaluation for pyelonephritis is limited in the absence of intravenous contrast. Recommend correlation clinically. There is no hydronephrosis. 3. Mildly prominent bladder wall thickness likely due to incomplete distention. Recommend correlation with urinalysis. Dictated by: Sulaiman Haines M.D. on 02/17/2017 CT BRAIN WITHOUT CONTRAST IMPRESSION: 1. No acute intracranial abnormality. Dictated by: Sulaiman Haines M.D. on 02/17/2017 Cardiac Echo Impressions . Echocardiogram Report Name: RAJANI ALSTON JStudy Mirza e: 02/17/2017 Height : 63 in Hospital Exam Location: [facility] Weight : 155 lb Gender: Female BSA: 1 .7 m2 : 1990 Age: 26 yrs BP: 10 1/64 mmHg Reason For Study: ENDOCARDITIS/SEPSIS Ordering Physician: Stevie Jean Performed By: Hanny Wisdom Referring Physician: CHAPARRO BULL Interpretation Summary Sinus tachycardia. Normal LV size and wall thickness. There is normal LV wall motion and systolic function. EF is 55-60%. There is severe RV dilation with normal wall motion. There is severe RA dilation. There is a 2.5x0.9 cm vegetation on the downstream side of the tricuspid valve leaflet. There is moderate tricuspid regurgittation. There is normal valve structure and function otherwise. Estimated PASP is 42 mm Hg assuming RA pressure of 3 mm Hg. Compared to prior study 08/04/2016 sinus tachycardia is new. RV dilation is new. Vegetation on the tricuspid valve is old. Tricuspid regurgitation is old Assessment & Plan Pt is a 26 y/o female w/ a hx of tricuspid MSSA endocarditis, ongoing IVDA ( meth and heroin), septic PE, pneumonia, presenting to the ED c/o dyspnea. Acute sepsis with septic shock. Present on admission; ongoing - Pt presents with temp 37.9, HR 145, BP 86/52, WBC 15.4 with left shift, lactic of 2.6. - Staph endocarditis with secondary bacteremia with persistently positive blood cultures at 5 days; CT positive for mycotic pulmonary embolism - She is stable on norepinephrine, and attempts to wean been difficult - White count decreasing today - Discussed with Dr. Jesus PEREZ whose note is available in the chart - Diuresis held and albumin 25 mg given last night and tonight - Continue daptomycin and nafcillin Left shoulder pain, acute. Present on admission. Stable - Pt has history of septic joint of the left sternoclavicular joint. - Discussed case with Dr. Vera who agreed to see the patient - Discussed joint aspiration with IR who will tap the joint prior to orthopedics seen the patient - Aspirate cell count, Gram stain, culture ordered 02/22/17 - Physical therapy to get patient up and out of bed Severe acute kidney injury. Present on admission. Resolved - Likely secondary to sepsis and hypotension. C3/C4 decrease indicating likely infectious glomerulonephritis - Creatinine initially greater than 8 and now reduced to 4.17 - Nephrology consultation and Dr. Patel currently seeing the patient - Avoid nephrotoxic agents. - IV and by mouth potassium replacement Right ventricular heart failure with anasarca; present on admission; ongoing -Severe right ventricular dilation and tricuspid regurg, with pulmonary hypertension likely secondary to pulmonary embolisms -Hold fluids -Cardiology was consulted -Likely reason the norepinephrine continues to be needed -Albumin 25 mg again tonight Tricuspid valve endocarditis with Septic pulmonary emboli and right heart failure, acute. Present on admission. Ongoing - CT chest showed possible septic pulmonary emboli bilaterally - Antibiotics and cultures as above - Echocardiogram demonstrates right sided heart failure due to pulmonary hypertension secondary to recurrent embolisms - Patient will eventually need a tricuspid valve replacement; patient is a poor candidate - Discussed valve replacement and cardiac standpoint and with Dr. Patel who recommends discontinuing diuresis due to - Dr. Patel also talked to cardiology at [facility] states a candidate is not a candidate at the moment and will require 6 weeks of antibiotics in 6 months off heroin Severe thrombocytopenia, acute. Present on admission. Resolved - Platelets reached as low as 31 -Cholesterol this is due to sepsis, DIC, or side effect of her IV drug use Anion gap metabolic acidosis and lactic acidosis, acute. Present on admission, resolving - Secondary to lactic acidosis and PRISCILA. Gap 24. pH 7.26, pCO2 32.6, pO2 110, bicarb 14.2. - Trend lactic acid q2 until normal lactic acid resolved - Lactic acid in a.m. - Of 18 on 02/21/17 Hypovolemic Hyponatremia, acute. Present on admission. Resolved - Na 126 on admission. Pt receiving NS @ 150 ml/hr - Monitor CMP History of IV drug abuse. POA and Active with heroin during the week prior to arrival. - Hepatitis C negative - HIV negative History of tobacco use. By mouth and active - Nicotine patch ordered History of seizure disorder. POA and stable. - Continue home lamotrigine Disposition: Unsure when patient will not require pressors. Pain Evaluation: Adequate Pain Control VTE Prophylaxis: Other (Pt has thrombocytopenia - no DVT prophylaxis for now.) VTE Mechanical Devices: Intermittant Pneumatic CD Resuscitation Status: CPR: Attempt Resuscitation Attending Statement The patient was seen and examined together with Dr. Noguera on February 22 and I agree with the history, exam findings, and plan as outlined in the note above. I did participate in all aspects of the services provided today, including documentation and the plan of care. We will continue to treat her for endocarditis, MSSA. The patient at this point remains tenuous and has persistent shock requiring norepinephrine. Her prognosis remains guarded. Cristian Noguera DO Feb 22, 2017 14:32 Mitul Barrera MD Feb 22, 2017 15:46
--- NOTE | 2017-02-22 18:30 | NUR ---
Liquid stools x4/Immod.1st dose 183
--- NOTE | 2017-02-22 19:48 | CONS ---
[address] [address] CONSULTATION REPORT PATIENT: RAJANI ALSTON : 1990 MR#: [id number] ADMIT: 02/17/2017 JOB ID: [id number] DATE OF SERVICE: 02/22/2017 CHIEF COMPLAINT: Left shoulder pain. HISTORY OF PRESENT ILLNESS: The patient is a 26-year-old female, who was admitted for sepsis with history of IV drug abuse, complaining of left shoulder pain. She states that her left shoulder has been bothering her for about a month with pain over the superior shoulder and pain with use of the arm. She has a history of a sternoclavicular joint infection abscess and she states that this is not like that was and is not as severe. She is somewhat difficult to get a history from as she is sedated, but feels that the shoulder is improving and that her health is overall improving with antibiotic treatment. PAST MEDICAL HISTORY: Significant for sepsis, bacterial endocarditis, renal failure, urinary tract infection, and abscess and MRSA positive. PHYSICAL EXAMINATION: Vital signs: Blood pressure 103/68, pulse rate 113, respirations 26, temperature 38.0. She is somewhat sleepy but arousable, in no acute distress. Her left shoulder has no significant warmth or erythema. She has active forward flexion to about 90 degrees with active assist. She can be brought to 160 degrees of forward flexion, abduction is limited to about 80 degrees actively with active assist. I can bring her to 150 degrees. Internal rotation is somewhat limited due to position in bed. She has no pain with resisted supination, no significant tenderness over the biceps or bicipital groove. No pain or tenderness over the clavicle. No pain or tenderness in the axillary region. I do not appreciate any significant adenopathy in this area. She does have tenderness and increased muscle tone in the trapezius over the posterior shoulder. IMAGING: CT scan from February 17, I do not appreciate any significant abnormality in the left shoulder joint. She had a left shoulder needle aspiration with Interventional Radiology which shows no osseous abnormalities. ASSESSMENT: Sepsis and endocarditis with left shoulder musculoskeletal pain, trapezius muscle strain/sprain. PLAN: I recommend that she work on range of motion and continue with medical management of her significant medical problems.
--- NOTE | 2017-02-22 20:42 | NUR ---
Rt Shoulder aspiration completed in Radiology
[2017-02-23] MEDS: Dextromethorphan Polistirix 6 mg/mL 90 mL Suspension PO PRN ×4 (01:00→20:38)
[2017-02-23] MEDS: Ondansetron 2 mg/mL 2 mL Inj IVPUSH PRN ×2 (01:10→20:32)
--- NOTE | 2017-02-23 01:57 | NUR ---
Report to RN [id number] - Report given to Araseli SESAY, all questions answered, patient resting in bed, no distress noted. Levophed infusing at 0.2mcg.kg.min. SBP 130's
[2017-02-23 03:49] VITALS: BP 128/69; PULSE 113; RESP 28; O2SAT 99
[2017-02-23] MEDS: Norepineph 8,000 mCg/250 mL NS 8,000 MCG in IV Premix 1 EACH IV SCH (04:04)
[2017-02-23 04:26] LABS: Mean Corpuscular Hemoglobin 31.3 pg (27.0-35.0); Mean Corpuscular Volume 89.7 fL (81-100); Platelet Count 320 bil/L (150-400)
[2017-02-23 04:43] LABS: BASOPHILS % (AUTO) 0 % (0-3); EOSINOPHILS % (AUTO) 2 % (0-5); MONOCYTES % (AUTO) 2 % (4-12); NEUTROPHILS % (AUTO) 74 % (40-74)
[2017-02-23 05:04] LABS: Magnesium 1.8 mg/dL (1.6-2.6); Phosphorus 3.3 mg/dL (2.5-4.9)
[2017-02-23] MEDS: DEXTROSE 5% IV SCH ×5 (05:31→20:32)
[2017-02-23] MEDS: NAFCILLIN IV SCH ×5 (05:31→20:32)
[2017-02-23] MEDS ORDERED: KCl 40 mEq/100 mL (CENTRAL) 40 MEQ in IV Premix 1 EACH IV ONE (05:55)
--- NOTE | 2017-02-23 07:26 | NUR ---
Pain/BP/Telemetry Oriented x3. Temp max 38.5. Tylenol for fever given. Drowsy but awaken with easily with light stimuli. C/o left shoulder pain and Morphine given with some effectiveness. Lorazepam given for anxiety r/t pain. Telemetry SR-ST in low 100s-110s. SBP 110-130s. MAP 70s. Norepinephrine down to 0.15 mcg/kg/min. Maintaining to MAP > 65. Pt reports not much pain relief from Oxycodone and prefers Morphine for pain. Pt having diarrhea and incontinent. 1 person assist to BSC. Tolerating po without any problems.
[2017-02-23] MEDS ORDERED: Pantoprazole 4 mg/mL 10 mL Inj IVPUSH SCH (07:30)
[2017-02-23 08:36] VITALS: BP 112/63; PULSE 90; RESP 21; O2SAT 94
--- NOTE | 2017-02-23 08:38 | PROG NOTE ---
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 INTERVAL HISTORY: The patient actually continues to feel very poorly. She continues to have fevers, chills and sweats. She has some headache. She continues to have bilateral pleuritic chest pain, a dry cough and shortness of breath. She has a very poor appetite but no nausea or vomiting. She does have loose stools which are persistent. She does not manifest or complain of any confusion. PHYSICAL EXAMINATION: Reveals an uncomfortable, very ill-appearing, young woman, lying supine in her ICU bed. She is using nasal oxygen at 3%, saturating 99%. She is febrile right now, 38.5, sinus tach 115 for her pulse, respiratory rate in the mid 20s. Blood pressure 128/69, but she continues to require 0.15 mcg/kg per minute of norepinephrine. Mental status is clear but the patient is mostly fragile and has no insight into her situation. Eyes without conjunctivitis. Oral cavity basically benign. Lungs with bilateral crackles. Cardiac tones without significant murmur, though tachycardic. Abdomen soft and generally nontender. No peripheral stigmata of endocarditis. She is developing additional edema of the lower extremities. LABORATORIES: Include a white count 21,000, which is unchanged from yesterday. No left shift, however. Creatinine 3.24, slightly improved. Liver function tests normal. Procalcitonin is 7, which is actually going over two days ago. Urinalysis 6-10 white cells. Hepatitis C, and HIV negative. Micro data: Positive blood cultures for MSSA from February 17, February 19, and now February 21. Her left shoulder was aspirated yesterday in Interventional Radiology and the cultures of that are negative so far. IMAGING: Includes a chest x-ray, which I reviewed myself this morning. It has not been formally interpreted by Radiology but I would say there are increasing bilateral septic emboli and it may just be that the one she already has are cavitating more but I am suspicious there may be new ones. Note that the patient was seen by Orthopedics yesterday, who did not think she had a septic left joint and I concur with that as she seems to be able to move her left shoulder a fair amount but does complain of some diffuse pain while she does so, but is by no means, frozen or septic appearing. IMPRESSION: This is an extremely bad case of a young woman who had methicillin-sensitive Staphylococcus aureus (MSSA) tricuspid valve endocarditis with septic emboli here in June. At that time, she also had a left sternoclavicular septic joint and renal failure. Fairly amazingly, she got through all of that and by August was doing very well and enrolled in drug rehabilitation. After about 4-5 months of abstinence and drug rehabilitation, relapsed and now is back with MSSA tricuspid valve endocarditis, multiple septic emboli, borderline respiratory failure, acute renal failure, and shock requiring vasopressor agents. At this point, we are now starting our seventh day of this hospital stay and she still has positive blood cultures and ongoing vasopressor requirements with slowly improving renal failure. Her overall mortality must be extremely high for this episode. In reviewing the literature, it looks like if her tricuspid valve were to be replaced, the one year mortality would be on the order of 45-60%, but I wonder if that might be better than where we are now as the patient's refractory shock, positive blood cultures and overall clinical deterioration portend a very bad outcome, I am afraid. RECOMMENDATIONS: 1. Will increase daptomycin from 6 mg/kg to 9. 2. Will continue with high-dose nafcillin. 3. No aminoglycosides as she is still in renal failure. 4. Stool for C. diff will be checked. 5. Serial blood cultures will be checked. 6. We need to readdress the situation as the days go by once again with Cardiology and perhaps CT Surgery, as the situation seems gradually to be becoming more dire and I am not certain what medical therapy has to offer here if she continues to have positive blood cultures and require vasopressors. 7. This case was discussed in detail with the [facility] team.
[2017-02-23] MEDS: hydrOXYzine Pamoate 25 mg Capsule PO SCH ×2 (09:39→12:59)
[2017-02-23] MEDS: lamoTRIgine 100 mg Tablet PO SCH ×2 (09:39→20:31)
[2017-02-23] MEDS: Potassium Chloride 20 mEq SR Tablet PO SCH (09:39)
--- NOTE | 2017-02-23 09:41 | NUR ---
Evaluation completed. Please go to "Notes" then click on "Assessments and Notes" (bottom left corner of screen). Then select appropriate discipline tab on top of screen.
--- NOTE | 2017-02-23 10:58 | PCM.PNNEPH ---
ERI XAVIER DO 02/23/17 1057: Subjective Date of Service Feb 23, 2017 Subjective Renal function continues to improve, urinary output approximately 2 L over the last 24 hours which is somewhat diminished from the previous few days approximately 5 L per day, and has had an increased in her diarrhea. Potassium slightly low this morning, received replacement. She states her shoulder feels better after achieving joint aspiration from IR. She denies any chest pain or shortness of breath. She remains on norepinephrine for blood pressure control for ongoing hypotension. Continues to receive antibiotics for her endocarditis , currently awaiting finalization of care plan. Exam Vital Signs Vital Sign - Last Date Time Temp Pulse Resp B/P Pulse Ox O2 Delivery O2 Flow Rate FiO2 02/23/17 09:00 Supplement Oxygen 02/23/17 08:36 37.2 90 21 112/63 94 02/23/17 03:49 3.00 Intake and Output 02/22/17 02/22/17 02/23/17 Cumulative From/Thru 15:00 23:00 07:00 02/16/17 23:36 - 02/23/17 06:30 Intake Total 1129 ml 1103 ml 2285 ml 82024 ml Output Total 1500 ml 650 ml 1250 ml 02716 ml Balance -371 ml 453 ml 1035 ml 32084 ml Intake Oral 240 ml 1720 ml 4630 ml IV Total 1129 ml 863 ml 565 ml 41747 ml Tube Feeding 400 ml Platelets 490 ml Output Urine Total 1500 ml 650 ml 1250 ml 76806 ml # Bowel Movements 1 4 1 9 Exam General: Awake and alert lying in hospital bed, probably interactive in no acute distress. HEENT: Normocephalic, atraumatic. External ears without defect. Pupils equal, round, and reactive to light and accommodation. moist mucosa. Neck: Supple with full range of motion. Mild JVD. No bruits. Cardiovascular: Regular rate and rhythm. Soft ejection murmur heard. Pulmonary: Clear to auscultation upper anterior lobes, good air movement no use of accessory muscles Abdomen: Bowel tones present. Soft, nontender, mildly distended. Extremities: No clubbing, cyanosis, mild peripheral edema, improved from yesterday Skin: Normal temperature, turgor, and texture Neurological: Cranial nerves grossly intact. Psychiatric: Normal mood and affect. Alert and oriented to person, place, and time. Lab and Diagnostics Result Diagram: 02/23/17 04102/23/17409 X-Rays, CTs and MRIs . X-RAY CHEST ONE VIEW, PORTABLE IMPRESSION: Diffuse bilateral patchy air space opacities suspicious for pneumonia. Dictated by: Delon LEYVA Interpreted: Jose Enrique York MD on 02/17/2017 X-RAY CHEST ONE VIEW, PORTABLE IMPRESSION: 1. Right internal jugular central venous catheter is in expected position. No pneumothorax. 2. Bilateral septic emboli as before. Dictated by: Lance Dan M.D. on 02/17/2017 CT CHEST, ABDOMEN AND PELVIS WITHOUT CONTRAST IMPRESSION: 1. Multiple bilateral cavitary lesions in the lungs consistent with recurrent septic emboli. The differential for these imaging findings includes inflammatory processes as well as metastatic disease but these are less likely given patient's prior history of septic emboli. 2. Slight asymmetric appearance of the right kidney with minimal perinephric stranding. However, evaluation for pyelonephritis is limited in the absence of intravenous contrast. Recommend correlation clinically. There is no hydronephrosis. 3. Mildly prominent bladder wall thickness likely due to incomplete distention. Recommend correlation with urinalysis. Dictated by: Sulaiman Haines M.D. on 02/17/2017 CT BRAIN WITHOUT CONTRAST IMPRESSION: 1. No acute intracranial abnormality. Dictated by: Sulaiman Haines M.D. on 02/17/2017 Cardiac Echo Impressions . Echocardiogram Report Name: RAJANI ALSTON JStudy Mirza e: 02/17/2017 Height : 63 in Hospital Exam Location: [facility] Weight : 155 lb Gender: Female BSA: 1 .7 m2 : 1990 Age: 26 yrs BP: 10 1/64 mmHg Reason For Study: ENDOCARDITIS/SEPSIS Ordering Physician: Stevie Jean Performed By: Hanny Wisdom Referring Physician: CHAPARRO BULL Interpretation Summary Sinus tachycardia. Normal LV size and wall thickness. There is normal LV wall motion and systolic function. EF is 55-60%. There is severe RV dilation with normal wall motion. There is severe RA dilation. There is a 2.5x0.9 cm vegetation on the downstream side of the tricuspid valve leaflet. There is moderate tricuspid regurgittation. There is normal valve structure and function otherwise. Estimated PASP is 42 mm Hg assuming RA pressure of 3 mm Hg. Compared to prior study 08/04/2016 sinus tachycardia is new. RV dilation is new. Vegetation on the tricuspid valve is old. Tricuspid regurgitation is old Plan Impression 1. Infectious staphylococcal pyelonephritis - ongoing infection - low C3/C4 with active urine sediment. - Antibiotics per ID 2. Acute kidney injury, improving -Patient appears to be in recovery phase of a PRISCILA -Hold diuretics -25 g of albumin given IV -Careful monitoring of I's and O's, consider fluid replacement based on volume status 4. Hypokalemia. - Potassium 3.4 today - Continue IV and oral potassium replacement 5. Anion gap metabolic acidosis secondary to uremia and lactic acidosis. -Lactic acid normalized Abel Monge DO 02/23/17 1137: Exam Lab and Diagnostics Result Diagram: 02/23/17 0410 02/23/17 041 Plan Plan: Nephrology attending: Patient's renal function continues to improve along with her urine output. The patient was seen with Dr. Xavier and we have certainly discussed the findings and the therapeutic plan which is detailed above. ERI XAVIER DO Feb 23, 2017 10:57 Abel Monge DO Feb 23, 2017 11:37
[2017-02-23] MEDS ORDERED: Albumin 25% 25 GM in IV Premix 1 EACH IV ONE (11:10)
--- NOTE | 2017-02-23 11:10 | PCM.PNMED ---
Subjective Date of Service Feb 23, 2017 Subjective Patient continues to have cough and general ill feeling. Blood cultures were again positive and patient continues to have fever. Discussed case with Dr. Lee, whose note is available in the chart. Patient was seen by orthopedics yesterday for her left shoulder pain who feel that this is a trapezius muscle strain. I recommended physical therapy. Joint was aspirated is currently pending culture. Exam Vital Signs Vital Sign - Last Date Time Temp Pulse Resp B/P Pulse Ox O2 Delivery O2 Flow Rate FiO2 02/23/17 09:00 Supplement Oxygen 02/23/17 08:36 37.2 90 21 112/63 94 02/23/17 03:49 3.00 Intake and Output 02/22/17 02/22/17 02/23/17 Cumulative From/Thru 15:00 23:00 07:00 02/16/17 23:36 - 02/23/17 06:30 Intake Total 1129 ml 1103 ml 2285 ml 56791 ml Output Total 1500 ml 650 ml 1250 ml 36379 ml Balance -371 ml 453 ml 1035 ml 47740 ml Intake Oral 240 ml 1720 ml 4630 ml IV Total 1129 ml 863 ml 565 ml 39061 ml Tube Feeding 400 ml Platelets 490 ml Output Urine Total 1500 ml 650 ml 1250 ml 21357 ml # Bowel Movements 1 4 1 9 Exam General: Toxic appearing age-appropriate female HEENT: PERRLA, EOMI, nonicteric, membranes moist Lymph: No lymphadenopathy Cardio: Regular rate and rhythm; 2/6 systolic murmur over the lower left sternal border Respiratory: CTA bilaterally, no wheezes, no crackles Abdomen: Soft, positive bowel sounds, nontender, nondistended Extremities: No edema, sensation intact Psych: Flat affect and toxic Neuro: CN II through XII grossly intact, sensation intact throughout Skin: No rash IVs and Medications Medications Reviewed: Medications were reviewed in detail Lab and Diagnostics Result Diagram: 02/23/1740902/23/17409 X-Rays, CTs and MRIs . X-RAY CHEST ONE VIEW, PORTABLE IMPRESSION: Diffuse bilateral patchy air space opacities suspicious for pneumonia. Dictated by: Delon LEYVA Interpreted: Jose Enrique York MD on 02/17/2017 X-RAY CHEST ONE VIEW, PORTABLE IMPRESSION: 1. Right internal jugular central venous catheter is in expected position. No pneumothorax. 2. Bilateral septic emboli as before. Dictated by: Lance Dan M.D. on 02/17/2017 CT CHEST, ABDOMEN AND PELVIS WITHOUT CONTRAST IMPRESSION: 1. Multiple bilateral cavitary lesions in the lungs consistent with recurrent septic emboli. The differential for these imaging findings includes inflammatory processes as well as metastatic disease but these are less likely given patient's prior history of septic emboli. 2. Slight asymmetric appearance of the right kidney with minimal perinephric stranding. However, evaluation for pyelonephritis is limited in the absence of intravenous contrast. Recommend correlation clinically. There is no hydronephrosis. 3. Mildly prominent bladder wall thickness likely due to incomplete distention. Recommend correlation with urinalysis. Dictated by: Sulaiman Haines M.D. on 02/17/2017 CT BRAIN WITHOUT CONTRAST IMPRESSION: 1. No acute intracranial abnormality. Dictated by: Sulaiman Haines M.D. on 02/17/2017 Cardiac Echo Impressions . Echocardiogram Report Name: RAJANI ALSTON JStudy Mirza e: 02/17/2017 Height : 63 in Hospital Exam Location: [facility] Weight : 155 lb Gender: Female BSA: 1 .7 m2 : 1990 Age: 26 yrs BP: 10 1/64 mmHg Reason For Study: ENDOCARDITIS/SEPSIS Ordering Physician: Stevie Jean Performed By: Hanny Wisdom Referring Physician: CHAPARRO BULL Interpretation Summary Sinus tachycardia. Normal LV size and wall thickness. There is normal LV wall motion and systolic function. EF is 55-60%. There is severe RV dilation with normal wall motion. There is severe RA dilation. There is a 2.5x0.9 cm vegetation on the downstream side of the tricuspid valve leaflet. There is moderate tricuspid regurgittation. There is normal valve structure and function otherwise. Estimated PASP is 42 mm Hg assuming RA pressure of 3 mm Hg. Compared to prior study 08/04/2016 sinus tachycardia is new. RV dilation is new. Vegetation on the tricuspid valve is old. Tricuspid regurgitation is old Assessment & Plan Pt is a 26 y/o female w/ a hx of tricuspid MSSA endocarditis, ongoing IVDA ( meth and heroin), septic PE, pneumonia, presenting to the ED c/o dyspnea. Acute sepsis with septic shock. Present on admission; ongoing - Pt presents with temp 37.9, HR 145, BP 86/52, WBC 15.4 with left shift, lactic of 2.6. - Staph endocarditis with secondary bacteremia with persistently positive blood cultures at 5 days; CT positive for mycotic pulmonary embolism - She is stable on norepinephrine, and attempts to wean been difficult - White count decreasing today - Discussed with Dr. Lee ID whose note is available in the chart - Continue daptomycin and nafcillin; daptomycin has been increased by ID - Cultures remained positive and patient continues to have fevers - We will consider palliative care tomorrow for discussion of plans moving forward and prognosis Left shoulder pain, acute. Present on admission. Stable - Pt has history of septic joint of the left sternoclavicular joint. - Discussed case with Dr. Vera who agreed to see the patient - Discussed joint aspiration with IR who will tap the joint prior to orthopedics seen the patient - Aspirate cell count, Gram stain, culture ordered 02/22/17 - Physical therapy to work with shoulder Severe acute kidney injury. Present on admission. Resolved - Likely secondary to sepsis and hypotension. C3/C4 decrease indicating likely infectious glomerulonephritis - Creatinine initially greater than 8 and now reduced to 4.17 - Nephrology consultation and Dr. Patel currently seeing the patient - Avoid nephrotoxic agents. - IV and by mouth potassium replacement Right ventricular heart failure with anasarca; present on admission; ongoing -Severe right ventricular dilation and tricuspid regurg, with pulmonary hypertension likely secondary to pulmonary embolisms -Hold fluids -Cardiology was consulted -Likely reason the norepinephrine continues to be needed -Albumin 25 mg was given yesterday but not today Tricuspid valve endocarditis with Septic pulmonary emboli and right heart failure, acute. Present on admission. Ongoing - CT chest showed possible septic pulmonary emboli bilaterally - Antibiotics and cultures as above - Echocardiogram demonstrates right sided heart failure due to pulmonary hypertension secondary to recurrent embolisms - Patient will eventually need a tricuspid valve replacement; patient is a poor candidate - Discussed valve replacement and cardiac standpoint and with Dr. Patel who recommends discontinuing diuresis due to - Dr. Patel also talked to cardiology at [facility] states a candidate is not a candidate at the moment and will require 6 weeks of antibiotics in 6 months off heroin Severe thrombocytopenia, acute. Present on admission. Resolved - Platelets reached as low as 31 -Cholesterol this is due to sepsis, DIC, or side effect of her IV drug use Anion gap metabolic acidosis and lactic acidosis, acute. Present on admission, resolving - Secondary to lactic acidosis and PRISCILA. Gap 24. pH 7.26, pCO2 32.6, pO2 110, bicarb 14.2. - Trend lactic acid q2 until normal lactic acid resolved - Lactic acid in a.m. - Of 18 on 02/21/17 Hypovolemic Hyponatremia, acute. Present on admission. Resolved - Na 126 on admission. Pt receiving NS @ 150 ml/hr - Monitor CMP History of IV drug abuse. POA and Active with heroin during the week prior to arrival. - Hepatitis C negative - HIV negative History of tobacco use. By mouth and active - Nicotine patch ordered History of seizure disorder. POA and stable. - Continue home lamotrigine Disposition: Prognosis is very guarded but concern for high mortality rate within the next year as this patient continues to have positive blood cultures and fevers despite combination antibiotic therapy. She also continues to cough and is likely due to multiple pulmonary emboli from her tricuspid vegetation. Many of these factors are currently uncorrectable due to patient's health, and persistent history of IV drug abuse. Discussed the case with palliative and will consider consultation them tomorrow. Patient has been made aware of her grim prognosis. VTE Prophylaxis: Other (Pt has thrombocytopenia - no DVT prophylaxis for now.) VTE Mechanical Devices: Intermittant Pneumatic CD Resuscitation Status: CPR: Attempt Resuscitation Attending Statement The patient was seen and examined together with on February 23 and I agree with the history, exam findings, and plan as outlined in the note above. I did participate in all aspects of the services provided today, including documentation and the plan of care. We will continue to treat her tricuspid valve endocarditis and septic emboli with IV antibiotics. Prognosis remains guarded. Cristian Noguera DO Feb 23, 2017 11:10 Mitul Barrera MD Feb 23, 2017 17:01
[2017-02-23 11:45] VITALS: BP 119/68; PULSE 102; RESP 26; O2SAT 100
--- NOTE | 2017-02-23 13:22 | NUR ---
Social Work: Continued Discharge Planning/Multidisciplinary Rounds D: Pt discussed in multidisciplinary rounds. Pt remains in CCU with continued positive blood cultures. Pt requires a cardiac valve replacement however does not appear to be a candidate at this time due to existing infections. Pt's prognosis is uncertain at this time and palliative care may be required. Attending provider request that CDP bedside assessment be placed on hold at this time. [employer] has alerted Carmen Silva with [facility] that a CD assessment at this time is not appropriate. A: Pt who remains in CCU P: Evolving; [employer] to continue to follow to assess for social and discharge needs. BINA Kurtz
--- NOTE | 2017-02-23 13:40 | DRSVH ---
PROCEDURE: X-RAY CHEST ONE VIEW, PORTABLE ([id number]) INDICATIONS: cough/cp TECHNIQUE: One view of the chest was acquired. COMPARISON: [facility], CR, XR CHEST 1VW (PORTABLE), 02/17/2017, 19:28. FINDINGS: Surgical changes and devices: Right internal jugular central venous catheter tip projected over the l ower SVC. Lungs and pleura: No pleural effusions or pneumothorax. Bilateral ill-defined pulmonary nodules are again noted. There are regions of lucency involving the mid right lung and left upper lobe which pos sibly could be related to cavitation. Mediastinum: Mediastinal contours appear normal. Heart size is normal. Bones and chest wall: No suspicious bony lesions. Overlying soft tissues appear unremarkable. IMPRESSION: 1. Persistent ill-defined bilateral lung opacities redemonstrated with regions of central lucency sug gesting cavitation in this patient with history of septic emboli. 2. Stable position of right IJ CVL. Dictated by: Delon Pelayo [facility] Interpreted: Jaya Carranza MD on 02/23/2017 at 10:19 Approved by: Jaya Carranza M.D. on 02/23/2017 at 13:38
[2017-02-23 14:21] VITALS: BP 116/68; PULSE 124; RESP 26; O2SAT 98
[2017-02-23 15:45] VITALS: BP 83/40; PULSE 112; RESP 28; O2SAT 100
--- NOTE | 2017-02-23 15:45 | PROG NOTE ---
[address] [address] PROGRESS NOTE PATIENT: RAJANI ALSTON : 1990 MR#: [id number] ADMIT: 02/17/2017 JOB ID: [id number] DATE: 02/23/2017 SUBJECTIVE: The patient continues to be quite ill. She is currently running a fever of 39.2 degrees centigrade. She is complaining of significant pleuritic left shoulder discomfort with cough and generally hurts all over but particularly in her left shoulder. She is tachycardic with heart rates into the 120-130 range and a sinus tachycardia clearly related to her fever but also in part related to her Levophed, which she remains on at around 0.15 mcg per kg per minute. Her cardiac auscultation is notable for a regular rapid tachycardia with a right ventricular lift and a soft right ventricular gallop notable. She is not edematous to any great extent, and there is no evidence for anasarca, as was mentioned in another progress note. Laboratory is notable for a gradually progressive anemia. Her renal function continues to gradually improve. DISCUSSION: The patient is making some gradual progress chemically but continues to show evidence of sepsis and fever. Her chest x-ray shows evidence of cavitation in her left upper lobe and apical infiltrate, and that is an area on her exam that demonstrates a pleural rub and evidence of consolidation. I think that the pain that she is describing in her left shoulder represents pleuritic discomfort, and it would not surprise me if she has significant inflammation of her pleura, perhaps even early empyema. From a cardiac standpoint I do not have anything further to add. Will continue to follow this patient closely.
--- NOTE | 2017-02-23 18:20 | NUR ---
Pain/Activity/GTT/Tele/Febrile Patient a/o x 3, but impulsive and forgetful, bed alarm on for safety. Patient c/o left shoulder and gen pain throughout the shift, Morphine and po pain meds given prn. Patient oob x 2 to bsc, papo fair. Taking diet poor, but drinking liqs. Tele SR-ST 90-120's. See vitals. Max temp 39.6 Tylenol given x 1. Norepinephrine stopped per Cardiology and Hosp MD. SBP 80-100's with maps 50-60's. Dr Beckwith aware and orders recieved to hold med unless patient b/p map sustains < 60. Will cont to monitor.
[2017-02-23 19:47] VITALS: BP 94/55; PULSE 96; RESP 25; O2SAT 99
[2017-02-24] VITALS (7 sets, daily range): BP systolic 89–109; BP diastolic 46–66; PULSE 103–135; RESP 20–36; O2SAT 91–100
[2017-02-24] MEDS: NAFCILLIN IV SCH ×6 (00:15→19:53)
[2017-02-24] MEDS: DEXTROSE 5% IV SCH ×6 (00:15→19:53)
[2017-02-24] MEDS: Dextromethorphan Polistirix 6 mg/mL 90 mL Suspension PO PRN ×4 (02:11→20:36)
[2017-02-24 03:09] LABS: BASOPHILS % (AUTO) 0.3 % (0-3); EOSINOPHILS % (AUTO) 0.8 % (0-5); MONOCYTES % (AUTO) 4.7 % (4-12); Mean Corpuscular Hemoglobin 30.9 pg (27.0-35.0); Mean Corpuscular Volume 92.8 fL (81-100); Platelet Count 289 bil/L (150-400)
[2017-02-24] MEDS: Norepineph 8,000 mCg/250 mL NS 8,000 MCG in IV Premix 1 EACH IV SCH (05:00)
--- NOTE | 2017-02-24 05:15 | NUR ---
Cardiac/Resp/Temp Patients BP stable this shift without Levophed MAP in the low to mid 60's until this AM, Fever 39.5, MAP in the 40's, and HR in the mid 130's, Levophed to be restarted, Sats mid 90's off O2 and no c/o SOB when getting out of bed to [facility], TMax 39.5 this AM and 39.1 30 min after tylenol PO, anxious and Ativan given 1mg IVP. C/o generalized pain and left shoulder pain, Oxycodone and Morphine given, 2nd set of blood cultures drawn by lab about 2130. Addendum: 02/24/17 at 0531 by PUNEET CONNORS RN Amended: Links added.
[2017-02-24] MEDS ORDERED: KCl 40 mEq/100 mL (CENTRAL) 40 MEQ in IV Premix 1 EACH IV ONE (06:00)
[2017-02-24] MEDS: DAPTOmycin Inj 750 MG in 0.9% Sodium Chloride 50 ML IV SCH (07:46)
[2017-02-24] MEDS: hydrOXYzine Pamoate 25 mg Capsule PO SCH (08:33)
[2017-02-24] MEDS: lamoTRIgine 100 mg Tablet PO SCH ×2 (08:34→19:52)
--- NOTE | 2017-02-24 08:46 | PROG NOTE ---
[address] [address] PROGRESS NOTE PATIENT: RAJANI ALSTON : 1990 MR#: [id number] ADMIT: 02/17/2017 JOB ID: [id number] DATE: 02/24/2017 INFECTIOUS DISEASE FOLLOW UP NOTE: REASON FOR FOLLOWUP: Tricuspid valve endocarditis with refractory shock, bacteremia, septic cavitating pulmonary emboli and renal failure. INTERVAL HISTORY: The patient reports ongoing high fevers, chills and sweats. She has bilateral pleuritic chest pain as before and a dry cough at times. She no longer requires any supplemental oxygen, however, she does not complain of muscle aches in a generalized way but does complain of pain around the left shoulder which is made worse by movement of the left shoulder. She denies nausea, vomiting or diarrhea. PHYSICAL EXAMINATION: Reveals a slightly less toxic looking young woman who is nonetheless still critically ill. Her current temperature is 37.7, but during the night she was 39.5, pulse 113, respiratory rate 31, blood pressure 105/57, saturating 94% on room air. Examination of the eyes unremarkable. Oral cavity likewise normal. The patient's lungs are notable for decreased breath sounds bilaterally as she is splinting a bit and some scattered crackles are heard through both lung sky. Cardiac tones still with a gallop type sound as well as soft systolic murmur. The abdomen is soft and nontender. There is no muscle tenderness. No peripheral stigmata of endocarditis. Note that the patient remains on low-dose vasopressors with norepinephrine currently at 0.1 mcg/kg and during the night there was an episode of hypotension. LABORATORIES: Include white count 17,000, still with minimal left shift. Creatinine improving down to 2.88. LFTs normal. CPK is 813. That is our first measurement and she has been on dapto for several days. Her procalcitonin last measured at 7 and that was yesterday. No serologies of note. The blood culture situation continues to be bleak. Blood cultures are positive for MSSA on February 17, February 19, February 21 and the February 23 blood cultures are pending. Stool for C difficile has been done twice in the last week, both negative, as the patient has had intermittent diarrhea. I personally reviewed yesterday's chest x-ray. It shows bilateral cavitating septic pulmonary emboli and looks worse than one done at the time of admission. IMPRESSION: This continues to be a disturbing and difficult case. This is the second episode of MSSA endocarditis in the past eight months for this unfortunate young IV drug user. This episode is characterized by refractory shock and she remains vasopressor dependent with echo evidence of some right ventricular strain. The patient has a large tricuspid vegetation which is similar to one that she had back in June 2016 with a prior episode of tricuspid valve endocarditis. Her chest x-ray shows cavitating pulmonary emboli. Her acute renal failure is improving day by day. which is the best part of her clinical picture, but the main aspects of concern are the persistent hypotension as well as persistently positive blood cultures. The patient's scabies has completely resolved. I think isolation can be dropped for that. The patient was Vega viral positive from a PCR when she came in and I think we can drop isolation for that as well. RECOMMENDATIONS: 1. Will discontinue all isolation. 2. We will continue with what we hope to be synergistic dapto plus nafcillin. Note that her CPK is rising but it is asymptomatic and we will let it go a bit higher before we are forced to interrupt her dapto therapy. 3. The literature is been reviewed. There are a couple articles by Oneil Fernandez suggesting that dapto plus ceftaroline may be a synergistic combination as well as the possibility of cefazolin plus ertapenem as a synergistic combination. The whole literature about dapto plus beta lactams is also intriguing and it is for that reason I am following this combination in an effort to sterilize her blood cultures, but so far we have been unsuccessful. 4. The possibility of valve replacement I think still remains a potentially viable option if the patient remains in shock with persistently positive blood cultures in the coming days. 5. This case discussed extensively with the ICU as well as the Nephrology team.
[2017-02-24] MEDS: Potassium Chloride 20 mEq SR Tablet PO SCH ×2 (09:25→17:47)
--- NOTE | 2017-02-24 10:19 | PCM.PNNEPH ---
Subjective Date of Service Feb 24, 2017 Subjective The patient's renal function continues to slowly improve. Her intake and output last 24 hours shows 4466 in and 2150 out. Blood pressure still borderline. This morning her sodium is 138, potassium 3.4, chloride 105, bicarbonate 20, BUN and creatinine were 32 and 2.88 respectively. Her blood cultures are are consistently positive despite maximum antibiotic therapy. She has been turned down from [facility] at ward I feel that communication should be established with [facility] in [place] for possible transfer. Although tricuspid valve replacement is risky in this type of scenario she has 100% mortality without any type of operative procedure. We also need to take in account that she is 26 years of age and renal function is improving and would have a much better chance of surviving this type of surgery compared somebody much closed. I would urge in the strongest terms to sit at least communicate with [facility] about this patient as ethically I feel this is the correct way to go. Exam Vital Signs Vital Sign - Last Date Time Temp Pulse Resp B/P Pulse Ox O2 Delivery O2 Flow Rate FiO2 02/24/17 07:36 37.7 113 31 105/57 94 Room Air 02/24/17 00:15 4.00 Intake and Output 02/23/17 02/23/17 02/24/17 Cumulative From/Thru 15:00 23:00 07:00 02/16/17 23:36 - 02/24/17 05:01 Intake Total 1881 ml 1306 ml 92066 ml Output Total 900 ml 600 ml 28165 ml Balance 981 ml 706 ml 63261 ml Intake Oral 1140 ml 1080 ml 6850 ml IV Total 741 ml 226 ml 37043 ml Tube Feeding 400 ml Platelets 490 ml Output Urine Total 900 ml 600 ml 47512 ml # Bowel Movements 2 1 12 Lab and Diagnostics Result Diagram: 02/24/17 0255 02/24/17 0255 X-Rays, CTs and MRIs . X-RAY CHEST ONE VIEW, PORTABLE IMPRESSION: Diffuse bilateral patchy air space opacities suspicious for pneumonia. Dictated by: Delon LEYVA Interpreted: Jose Enrique York MD on 02/17/2017 X-RAY CHEST ONE VIEW, PORTABLE IMPRESSION: 1. Right internal jugular central venous catheter is in expected position. No pneumothorax. 2. Bilateral septic emboli as before. Dictated by: Lance Dan M.D. on 02/17/2017 CT CHEST, ABDOMEN AND PELVIS WITHOUT CONTRAST IMPRESSION: 1. Multiple bilateral cavitary lesions in the lungs consistent with recurrent septic emboli. The differential for these imaging findings includes inflammatory processes as well as metastatic disease but these are less likely given patient's prior history of septic emboli. 2. Slight asymmetric appearance of the right kidney with minimal perinephric stranding. However, evaluation for pyelonephritis is limited in the absence of intravenous contrast. Recommend correlation clinically. There is no hydronephrosis. 3. Mildly prominent bladder wall thickness likely due to incomplete distention. Recommend correlation with urinalysis. Dictated by: Sulaiman Haines M.D. on 02/17/2017 CT BRAIN WITHOUT CONTRAST IMPRESSION: 1. No acute intracranial abnormality. Dictated by: Sulaiman Haines M.D. on 02/17/2017 Cardiac Echo Impressions . Echocardiogram Report Name: RAJANI ALSTON JStudy Mirza e: 02/17/2017 Height : 63 in Hospital Exam Location: [facility] Weight : 155 lb Gender: Female BSA: 1 .7 m2 : 1990 Age: 26 yrs BP: 10 1/64 mmHg Reason For Study: ENDOCARDITIS/SEPSIS Ordering Physician: Stevie Jean Performed By: Hanny Wisdom Referring Physician: CHAPARRO BULL Interpretation Summary Sinus tachycardia. Normal LV size and wall thickness. There is normal LV wall motion and systolic function. EF is 55-60%. There is severe RV dilation with normal wall motion. There is severe RA dilation. There is a 2.5x0.9 cm vegetation on the downstream side of the tricuspid valve leaflet. There is moderate tricuspid regurgittation. There is normal valve structure and function otherwise. Estimated PASP is 42 mm Hg assuming RA pressure of 3 mm Hg. Compared to prior study 08/04/2016 sinus tachycardia is new. RV dilation is new. Vegetation on the tricuspid valve is old. Tricuspid regurgitation is old Abel Monge DO Feb 24, 2017 10:19
--- NOTE | 2017-02-24 10:44 | DRSVH ---
PROCEDURE: X-RAY JOINT INJ. MED JT ([id number]) INDICATIONS: septic joint TECHNIQUE: The indications, alternatives, benefits, risks, and complications of the procedure were explained to the patient. Written informed consent was obtained and placed in the chart. The patient was placed in an appropriate position on the fluoroscopy table, and a site was chosen for percutaneous access un wayne fluoroscopic guidance. The site was prepped and draped in a sterile fashion. Local anesthetic w as administered using a 1% lidocaine solution. A hypodermic or spinal needle was then used to access the symptomatic joint and roughly 2 cc of clear synovial fluid was aspirated. The needle was then w ithdrawn, and a bandage applied to the puncture site. FINDINGS: Joint aspirated: Left glenohumeral joint. Complications: None. IMPRESSION: Successful fluoroscopically guided left glenohumeral arthrocentesis. Dictated by: Delon LEYVA Interpreted: Jose Enrique York MD on 02/23/2017 at 10:42 Approved by: Jose Enrique York M.D. on 02/24/2017 at 10:43
--- NOTE | 2017-02-24 12:43 | NUR ---
Cardiac/Activity Able to wean off norepi, MAPs 60s-70s. ST 1-teens. Afebrile. Received call from [facility] that pt's heart monitor and SpO2 monitor were off. Upon assessment of pt, she was standing up at edge of bed without her gown on, stool on the floor and monitors disconnected; when inquired of pt what happened she stated "just walking around". Assisted pt to get clean, back in bed and back on monitors. Ensured Franchesca alarm active, as it did not alarm when pt got OOB. Reeducated pt relationship executive light use. Had MD assess prn and scheduled medications. Dr. Noguera made adjustments to Vistaril, d/c'd IV morphine (pt has PO oxycodone prn for pain), decreased dose of prn Ativan, pt on scheduled gabapentin. Pt received PO Loperamide for diarrhea. Pt lethargic much of morning, however when asked reports 8-9/10 pain. Pt speech slurred and when not stimulated falls asleep. Does grimace with movement and reports L shoulder pain. PRN meds given for pain. VSS. Once pt back in bed, PT came by, pt refused, stating she was too tired.
--- NOTE | 2017-02-24 14:21 | NUR ---
NUTRITION FOLLOW UP: ASSESS: 26 YO F admitted to CCU for sepsis, PRISCILA with infectious glomerulonephritis, and endocarditis. Pt has history of IVD abuse. Pt reported profound weakness for the last week prior to admit. She reported that she typically doesn't eat meals and just snacks during the day. She reported minimal appetite and some nausea. PO during admit has been poor at refused-75%. PMHX: Endocarditis, IVDA (meth and heroine), PE, PNA LABS: Reviewed. K 3.4. bun 32, clay artisan 2.88, glu 109, ca 7.8, alb 2.9 MEDS: Reviewed. GI: 1 BM (02/24) SKIN: no major issues CURRENT WT: 77.8kg, BMI 30.4 kg/m2, admit wt: 70.3kg, IBW: 52.3 kg DIET: General, PO intake refusal-75% ESTIMATED NEEDS: PRISCILA Calories: 2344-4254 kcal/day (25-30 kcal/kg BW) Protein: 55-70 g/day (0.8-1.0 g/kg BW) NUTRITION DIAGNOSIS: 1.) Inadequate oral intake related to chronic disease as evidence by reported weakness prior to admit and history of endocarditis and IVD use.---PERSISTS. NUTRITION INTERVENTION: 1.) Spoke with pt about foods that she likes/dislikes and bland foods that will not exacerbate her nausea. Pt does not like Magic Cups or Mighty shakes because they are too chalky/she says she can taste the added protein. She loves milk so will send 2 cartons of whole milk on all trays. She likes cypriot yogurt (which the hospital does not have) so encouraged pt to call her mom and have her mom bring in the yogurt that she likes and any other food that the pt prefers. She agreed to try Vanilla Ensure on L tray. Discussed how she can dilute the Ensure with milk so that it isn't so chalky. Discussed adding extra butter and gravy to foods to sneak in more kcal. 2.) Discussed eating smaller, more frequent meals when appetite is down. Encourage pt to try to eat at least 50% of all meals. Pt expressed understanding and stated that she would try. MONITOR/EVALUATE: PO, wt, GI, labs, POC, nutrition status. Follow per moderate nutrition risk guidelines
--- NOTE | 2017-02-24 16:45 | PCM.PNMED ---
Subjective Date of Service Feb 24, 2017 Subjective Patient was stable overnight maintained on 0.05 mcg/m of Levophed. Patient continues to have cough and complains about pain. States that the swelling has gone down in her legs. Exam Vital Signs Vital Sign - Last Date Time Temp Pulse Resp B/P Pulse Ox O2 Delivery O2 Flow Rate FiO2 02/24/17 16:24 37.7 121 24 109/56 91 Room Air 02/24/17 00:15 4.00 Intake and Output 02/23/17 02/23/17 02/24/17 Cumulative From/Thru 15:00 23:00 07:00 02/16/17 23:36 - 02/24/17 05:01 Intake Total 1881 ml 1306 ml 86727 ml Output Total 900 ml 600 ml 57041 ml Balance 981 ml 706 ml 69705 ml Intake Oral 1140 ml 1080 ml 6850 ml IV Total 741 ml 226 ml 78639 ml Tube Feeding 400 ml Platelets 490 ml Output Urine Total 900 ml 600 ml 78356 ml # Bowel Movements 2 1 12 Exam General: Apathetic HEENT: PERRLA, EOMI, nonicteric, membranes moist Lymph: No lymphadenopathy Cardio: Regular rate and rhythm; 2/6 systolic murmur over the lower left sternal border Respiratory: CTA bilaterally, no wheezes, no crackles Abdomen: Soft, positive bowel sounds, nontender, nondistended Extremities: No edema, sensation intact; left shoulder pain on palpation Psych: Flat affect and toxic Neuro: CN II through XII grossly intact, sensation intact throughout Skin: No rash IVs and Medications Medications Reviewed: Medications were reviewed in detail Medications Stop the Vistaril, decrease the Ativan, and stopped morphine. Lab and Diagnostics Result Diagram: 02/24/175 02/24/17 025 X-Rays, CTs and MRIs . X-RAY CHEST ONE VIEW, PORTABLE IMPRESSION: Diffuse bilateral patchy air space opacities suspicious for pneumonia. Dictated by: Delon LEYVA Interpreted: Jose Enrique York MD on 02/17/2017 X-RAY CHEST ONE VIEW, PORTABLE IMPRESSION: 1. Right internal jugular central venous catheter is in expected position. No pneumothorax. 2. Bilateral septic emboli as before. Dictated by: Lance Dan M.D. on 02/17/2017 CT CHEST, ABDOMEN AND PELVIS WITHOUT CONTRAST IMPRESSION: 1. Multiple bilateral cavitary lesions in the lungs consistent with recurrent septic emboli. The differential for these imaging findings includes inflammatory processes as well as metastatic disease but these are less likely given patient's prior history of septic emboli. 2. Slight asymmetric appearance of the right kidney with minimal perinephric stranding. However, evaluation for pyelonephritis is limited in the absence of intravenous contrast. Recommend correlation clinically. There is no hydronephrosis. 3. Mildly prominent bladder wall thickness likely due to incomplete distention. Recommend correlation with urinalysis. Dictated by: Sulaiman Haines M.D. on 02/17/2017 CT BRAIN WITHOUT CONTRAST IMPRESSION: 1. No acute intracranial abnormality. Dictated by: Sulaiman Haines M.D. on 02/17/2017 Cardiac Echo Impressions . Echocardiogram Report Name: RAJANI ALSTONtudeliza Mirza e: 02/17/2017 Height : 63 in Hospital Exam Location: [facility] Weight : 155 lb Gender: Female BSA: 1 .7 m2 : 1990 Age: 26 yrs BP: 10 1/64 mmHg Reason For Study: ENDOCARDITIS/SEPSIS Ordering Physician: Stevie Jean Performed By: Hanny Wisdom Referring Physician: CHAPARRO BULL Interpretation Summary Sinus tachycardia. Normal LV size and wall thickness. There is normal LV wall motion and systolic function. EF is 55-60%. There is severe RV dilation with normal wall motion. There is severe RA dilation. There is a 2.5x0.9 cm vegetation on the downstream side of the tricuspid valve leaflet. There is moderate tricuspid regurgittation. There is normal valve structure and function otherwise. Estimated PASP is 42 mm Hg assuming RA pressure of 3 mm Hg. Compared to prior study 08/04/2016 sinus tachycardia is new. RV dilation is new. Vegetation on the tricuspid valve is old. Tricuspid regurgitation is old Assessment & Plan Pt is a 26 y/o female w/ a hx of tricuspid MSSA endocarditis, ongoing IVDA ( meth and heroin), septic PE, pneumonia, presenting to the ED c/o dyspnea. Acute sepsis with septic shock. Present on admission; ongoing - Pt presents with temp 37.9, HR 145, BP 86/52, WBC 15.4 with left shift, lactic of 2.6. - Staph endocarditis with secondary bacteremia with persistently positive blood cultures at 5 days; CT positive for mycotic pulmonary embolism - She is stable on norepinephrine, and attempts to wean been difficult - White count decreasing today - Discussed with Dr. Jesus PEREZ whose note is available in the chart - Continue daptomycin and nafcillin; daptomycin has been increased by ID - Blood cultures taken yesterday are negative at 24 hours. We will continue to follow Septic Encephalopathy; not present on admission; ongoing -Patient's current hallucinations overnight and today got out of bed and stooled on the floor -Likely related to either sepsis or combination of medications including morphine, Vistaril, and Ativan. -Stopped Vistaril except at bedtime, stop morphine, decrease Ativan Severe acute kidney injury. Present on admission. Resolved - Likely secondary to sepsis and hypotension. C3/C4 decrease indicating likely infectious glomerulonephritis - Creatinine initially greater than 8 and now reduced to 4.17 - Nephrology consultation and Dr. Patel currently seeing the patient - Avoid nephrotoxic agents. - Increased potassium orally Right ventricular heart failure with anasarca; present on admission; ongoing -Severe right ventricular dilation and tricuspid regurg, with pulmonary hypertension likely secondary to pulmonary embolisms -Hold fluids -Cardiology was consulted -Likely reason the norepinephrine continues to be needed, although its need his decreasing Tricuspid valve endocarditis with Septic pulmonary emboli and right heart failure, acute. Present on admission. Ongoing - CT chest showed possible septic pulmonary emboli bilaterally - Antibiotics and cultures as above - Echocardiogram demonstrates right sided heart failure due to pulmonary hypertension secondary to recurrent embolisms as well as severe tricuspid regurg - Patient will eventually need a tricuspid valve replacement; patient is a poor candidate - Discussed valve replacement and cardiac standpoint and with Dr. Patel who recommends discontinuing diuresis due to - Dr. Patel also talked to cardiology at [facility] states a candidate is not a candidate at the moment and will require 6 weeks of antibiotics in 6 months off heroin Left shoulder pain, acute. Present on admission. Stable - Pt has history of septic joint of the left sternoclavicular joint; has been seen by orthopedics during the stay - Aspirate cell count, Gram stain, culture ordered 02/22/17 - Physical therapy to work with shoulder Severe thrombocytopenia, acute. Present on admission. Resolved - Platelets reached as low as 31 -Cholesterol this is due to sepsis, DIC, or side effect of her IV drug use Anion gap metabolic acidosis and lactic acidosis, acute. Present on admission, resolving - Secondary to lactic acidosis and PRISCILA. Gap 24. pH 7.26, pCO2 32.6, pO2 110, bicarb 14.2. - Trend lactic acid q2 until normal lactic acid resolved - Lactic acid in a.m. - Of 18 on 02/21/17 Hypovolemic Hyponatremia, acute. Present on admission. Resolved - Na 126 on admission. Pt receiving NS @ 150 ml/hr - Monitor CMP History of IV drug abuse. POA and Active with heroin during the week prior to arrival. - Hepatitis C negative - HIV negative History of tobacco use. By mouth and active - Nicotine patch ordered History of seizure disorder. POA and stable. - Continue home lamotrigine Disposition: Discussed the case with palliative and so far we have held off on consult in them. I have not seen family around to discuss this with anyways and the patient seems to be encephalopathic today. VTE Prophylaxis: Other (Pt has thrombocytopenia - no DVT prophylaxis for now.) VTE Mechanical Devices: Intermittant Pneumatic CD Resuscitation Status: CPR: Attempt Resuscitation Time spent 40 minutes Attending Statement I interviewed and examined the patient on rounds today. Awaiting clearance of blood cultures on antibiotic therapy. Mild encephalopathic symptoms seem likely due to medications. I agree with the assessment and plan as stated above. Cristian Noguera DO Feb 24, 2017 16:45 Hugo Mcdaniels MD Feb 24, 2017 18:16
[2017-02-25] VITALS (7 sets, daily range): BP systolic 92–112; BP diastolic 54–69; PULSE 93–122; RESP 27–36; O2SAT 95–100
[2017-02-25] MEDS: Norepineph 8,000 mCg/250 mL NS 8,000 MCG in IV Premix 1 EACH IV SCH
[2017-02-25] MEDS: NAFCILLIN IV SCH ×5 (00:35→09:35)
[2017-02-25] MEDS: DEXTROSE 5% IV SCH ×2 (00:35→04:47)
[2017-02-25] MEDS: Dextromethorphan Polistirix 6 mg/mL 90 mL Suspension PO PRN ×3 (04:47→17:09)
--- NOTE | 2017-02-25 05:48 | NUR ---
Cardiac/Resp/GI Patient afebrile this AM, TMAX was 39.1 this shift, patient has been afebrile since 2200, on room air this shift and no c/o SOB, dry cough and PRN cough syrup given, HR 90-100's, c/o anxiety this AM and requesting Ativan, pleasant and cooperative this shift, had 1 BM which was liquid stool 300ml, 1600ml urine output in larios, drinking lots of fluids and tolerating well without nausea, no distress noted, will continue to monitor. Addendum: 02/25/17 at 0553 by PUNEET CONNORS RN Amended: Links added.
[2017-02-25 06:33] LABS: BASOPHILS % (AUTO) 0.4 % (0-3); EOSINOPHILS % (AUTO) 0.4 % (0-5); MONOCYTES % (AUTO) 5.7 % (4-12); Mean Corpuscular Hemoglobin 31.1 pg (27.0-35.0); Mean Corpuscular Volume 93.6 fL (81-100); NEUTROPHILS % (AUTO) 71.8 % (40-74); Platelet Count 276 bil/L (150-400)
[2017-02-25 06:55] LABS: Magnesium 1.9 mg/dL (1.6-2.6); Phosphorus 4.9 mg/dL (2.5-4.9)
[2017-02-25] MEDS: lamoTRIgine 100 mg Tablet PO SCH ×2 (08:06→20:36)
[2017-02-25] MEDS: Potassium Chloride 20 mEq SR Tablet PO SCH ×2 (08:07→17:08)
[2017-02-25] MEDS ORDERED: DEXTROSE 5% IV SCH (08:30)
[2017-02-25] MEDS ORDERED: NAFCILLIN IV SCH (08:30)
[2017-02-25] MEDS: INFUSION IV SCH ×3 (09:35)
[2017-02-25] MEDS: Ondansetron 2 mg/mL 2 mL Inj IVPUSH PRN (10:28)
--- NOTE | 2017-02-25 11:59 | PROG NOTE ---
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 INTERVAL HISTORY: The patient tells me today she continues to feel "bad." She complains of weakness, pleuritic chest pain, shortness of breath and some muscle aching. She denies fever or chills this morning, however, and reports that she is not needing to use any supplemental oxygen even though she feels short of breath and has pleuritic pain. No nausea, vomiting, diarrhea. She continues to have a Neff catheter so she has no urinary symptoms. She tells me she was able to get out of bed by herself during the night and use the bedside commode as she still has frequent loose stools. PHYSICAL EXAMINATION: Reveals a woman who is still intermittently febrile. Right now 37.7, but yesterday evening 38.7. Respiratory rate is 20-35, blood pressure 99/62. In a major improvement, however, she is off vasopressor agents and has been for several hours. She is saturating 98% on room air. The patient remains mildly short of breath but looks to be in less distress than previously. Eyes without conjunctivitis. Oral cavity, no thrush. Left shoulder with increasing range of motion. Lungs with a few crackles bilaterally. Cardiac tones without murmur. The gallop rhythm that was heard earlier seems to be gone. The abdomen is soft, nontender. Large muscle groups nontender as well. LABORATORY STUDIES: Include white count which is still pending this morning. Yesterday's was 17. Her creatinine though he is continuing to slowly drop to 0.55, down from 2.88 yesterday. LFTs entirely normal. CPK yesterday was 813 which is four times the upper limit of normal and in and of itself not too concerning. Procalcitonin is down to 2.82 from a prior level of 7 a couple days ago and her initial level of 64. Urinalysis 6-10 white cells. ANCA has returned negative. HELEN negative. Hepatitis C negative. Micro includes the many positive blood cultures between February 17 and February 21. The blood cultures from February 23 remain negative and this is the first time they have been negative. C difficile PCR on stool has been done and it is negative. The synovial fluid from the left shoulder remains negative. IMAGING PROCEDURE: Chest x-ray from two days ago was reviewed. It shows cavitation of septic pulmonary emboli. IMPRESSION: This is the first day that I have some cautious optimism about this patient's chances of survival of this recurrent episode of tricuspid valve endocarditis with septic shock and multiple pulmonary emboli. Recall this is the second episode of this IV drug use related process in the past eight months. In reviewing the isolates from June, they were different MSSA as those were very sensitive to erythromycin and these are very resistant, which shows that this is a true second episode of endocarditis related to recrudescent drug use rather than a relapse of the first episode. As of today, the patient is off vasopressor agents, which is a huge step forward. Her renal function continues to slowly improve as well. Overall she remains profoundly weak with pleuritic chest pain, ongoing tachypnea, tachycardia and weakness but she is definitely improved. This case discussed extensively with the intensive care unit team as well as with the intensive care unit pharmacist regarding appropriate drug dosing. RECOMMENDATIONS: 1. We are going to change the patient to continuous infusion nafcillin 12 g per day. 2. Will continue with daptomycin and with the high dose q.48 hour dosing for at least another day or two. If her blood cultures stay negative through the weekend, we can drop the daptomycin. 3. Though the CPK is rising, I am not terribly concerned at this level regarding possible dapto toxicity though it is undoubtedly the cause of this elevated CPK. 4. As the patient improves, she is to start to increase her getting out of bed and eventually start walking. 5. As her renal function continues to improve, we should think about taking out the Neff catheter as it remains a source of reinfection.
--- NOTE | 2017-02-25 12:10 | PCM.PNNEPH ---
Subjective Date of Service Feb 25, 2017 Subjective The patient's renal function continues to slowly improve. Her main complaint is some ongoing cough productive of scant amount of sputum and left. Pain. Last 24 hours she has had 1695 in and 1650 out with an additional 1600 out in the first 8 hours today. Her sodium is 138, potassium 3.7, chloride 104, bicarbonate 18, BUN and creatinine were 32 and 2.55. Her albumin is 2.8. Exam Vital Signs Vital Sign - Last Date Time Temp Pulse Resp B/P Pulse Ox O2 Delivery O2 Flow Rate FiO2 02/25/17 07:42 37.7 105 34 99/62 98 Room Air 02/24/17 00:15 4.00 Intake and Output 02/24/17 02/24/17 02/25/17 Cumulative From/Thru 15:00 23:00 07:00 02/16/17 23:36 - 02/25/17 04:52 Intake Total 389 ml 1448 ml 07666 ml Output Total 1050 ml 1900 ml 74476 ml Balance -661 ml -452 ml 17994 ml Intake Oral 1200 ml 8050 ml IV Total 389 ml 248 ml 65164 ml Tube Feeding 400 ml Platelets 490 ml Output Urine Total 1050 ml 1600 ml 12370 ml Stool Total 300 ml 300 ml # Bowel Movements 1 13 Exam Lungs showed a few scattered rhonchi but clear. Heart is regular and rhythmical with a harsh grade 3/6 systolic ejection murmur which is unchanged. Abdomen is soft without any tenderness rebound guarding masses or hepatosplenomegaly. Some persistent mild generalized edema. Lab and Diagnostics Result Diagram: 02/25/17 0600 02/25/17 0600 X-Rays, CTs and MRIs . X-RAY CHEST ONE VIEW, PORTABLE IMPRESSION: Diffuse bilateral patchy air space opacities suspicious for pneumonia. Dictated by: Delon LEYVA Interpreted: Jose Enrique York MD on 02/17/2017 X-RAY CHEST ONE VIEW, PORTABLE IMPRESSION: 1. Right internal jugular central venous catheter is in expected position. No pneumothorax. 2. Bilateral septic emboli as before. Dictated by: Lance Dan M.D. on 02/17/2017 CT CHEST, ABDOMEN AND PELVIS WITHOUT CONTRAST IMPRESSION: 1. Multiple bilateral cavitary lesions in the lungs consistent with recurrent septic emboli. The differential for these imaging findings includes inflammatory processes as well as metastatic disease but these are less likely given patient's prior history of septic emboli. 2. Slight asymmetric appearance of the right kidney with minimal perinephric stranding. However, evaluation for pyelonephritis is limited in the absence of intravenous contrast. Recommend correlation clinically. There is no hydronephrosis. 3. Mildly prominent bladder wall thickness likely due to incomplete distention. Recommend correlation with urinalysis. Dictated by: Sulaiman Haines M.D. on 02/17/2017 CT BRAIN WITHOUT CONTRAST IMPRESSION: 1. No acute intracranial abnormality. Dictated by: Sulaiman Haines M.D. on 02/17/2017 Cardiac Echo Impressions . Echocardiogram Report Name: RAJANI ALSTON JStudy Mirza e: 02/17/2017 Height : 63 in Hospital Exam Location: [facility] Weight : 155 lb Gender: Female BSA: 1 .7 m2 : 1990 Age: 26 yrs BP: 10 1/64 mmHg Reason For Study: ENDOCARDITIS/SEPSIS Ordering Physician: Stevie Jean Performed By: Hanny Wisdom Referring Physician: CHAPARRO BULL Interpretation Summary Sinus tachycardia. Normal LV size and wall thickness. There is normal LV wall motion and systolic function. EF is 55-60%. There is severe RV dilation with normal wall motion. There is severe RA dilation. There is a 2.5x0.9 cm vegetation on the downstream side of the tricuspid valve leaflet. There is moderate tricuspid regurgittation. There is normal valve structure and function otherwise. Estimated PASP is 42 mm Hg assuming RA pressure of 3 mm Hg. Compared to prior study 08/04/2016 sinus tachycardia is new. RV dilation is new. Vegetation on the tricuspid valve is old. 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 Once he is my hope to get her transferred down to the [facility] in the near future. Abel Monge DO Feb 25, 2017 12:10
--- NOTE | 2017-02-25 15:53 | PCM.PNMED ---
Subjective Date of Service Feb 25, 2017 Subjective Pt continues to have fevers, rigors, and chills, and overall feeling has not improved. She continues to cough and states that she has diffuse body pains. Blood cultures are negative so far which is an improvement but without clinical improvement no real progress seems to be made. Some report from cardiology that perhaps the patient is a candidate for valve replacement afterall. Exam Vital Signs Vital Sign - Last Date Time Temp Pulse Resp B/P Pulse Ox O2 Delivery O2 Flow Rate FiO2 02/25/17 12:00 38.5 122 36 96/54 95 Room Air 02/24/17 00:15 4.00 Intake and Output 02/24/17 02/24/17 02/25/17 Cumulative From/Thru 15:00 23:00 07:00 02/16/17 23:36 - 02/25/17 04:52 Intake Total 389 ml 1448 ml 61327 ml Output Total 1050 ml 1900 ml 50841 ml Balance -661 ml -452 ml 34488 ml Intake Oral 1200 ml 8050 ml IV Total 389 ml 248 ml 31519 ml Tube Feeding 400 ml Platelets 490 ml Output Urine Total 1050 ml 1600 ml 10394 ml Stool Total 300 ml 300 ml # Bowel Movements 1 13 Exam General: toxic Cardio: Regular rate and rhythm; 2-3/6 systolic murmur over the lower left sternal border Respiratory: CTA bilaterally, no wheezes, no crackles Abdomen: Soft, positive bowel sounds, mildly tender Extremities: No edema, sensation intact; left shoulder pain improved Psych: Flat affect Neuro: CN II through XII grossly intact, sensation intact throughout Skin: No rash IVs and Medications Medications Reviewed: Medications were reviewed in detail Lab and Diagnostics Result Diagram: 02/25/17 0600 02/25/17 06 X-Rays, CTs and MRIs . X-RAY CHEST ONE VIEW, PORTABLE IMPRESSION: Diffuse bilateral patchy air space opacities suspicious for pneumonia. Dictated by: Delon LEYVA Interpreted: Jose Enrique York MD on 02/17/2017 X-RAY CHEST ONE VIEW, PORTABLE IMPRESSION: 1. Right internal jugular central venous catheter is in expected position. No pneumothorax. 2. Bilateral septic emboli as before. Dictated by: Lance Dan M.D. on 02/17/2017 CT CHEST, ABDOMEN AND PELVIS WITHOUT CONTRAST IMPRESSION: 1. Multiple bilateral cavitary lesions in the lungs consistent with recurrent septic emboli. The differential for these imaging findings includes inflammatory processes as well as metastatic disease but these are less likely given patient's prior history of septic emboli. 2. Slight asymmetric appearance of the right kidney with minimal perinephric stranding. However, evaluation for pyelonephritis is limited in the absence of intravenous contrast. Recommend correlation clinically. There is no hydronephrosis. 3. Mildly prominent bladder wall thickness likely due to incomplete distention. Recommend correlation with urinalysis. Dictated by: Sulaiman Haines M.D. on 02/17/2017 CT BRAIN WITHOUT CONTRAST IMPRESSION: 1. No acute intracranial abnormality. Dictated by: Sulaiman Haines M.D. on 02/17/2017 Cardiac Echo Impressions . Echocardiogram Report Name: RAJANI ALSTONtudeliza Mirza e: 02/17/2017 Height : 63 in Hospital Exam Location: [facility] Weight : 155 lb Gender: Female BSA: 1 .7 m2 : 1990 Age: 26 yrs BP: 10 1/64 mmHg Reason For Study: ENDOCARDITIS/SEPSIS Ordering Physician: Stevie Jean Performed By: Hanny Wisdom Referring Physician: CHAPARRO BULL Interpretation Summary Sinus tachycardia. Normal LV size and wall thickness. There is normal LV wall motion and systolic function. EF is 55-60%. There is severe RV dilation with normal wall motion. There is severe RA dilation. There is a 2.5x0.9 cm vegetation on the downstream side of the tricuspid valve leaflet. There is moderate tricuspid regurgittation. There is normal valve structure and function otherwise. Estimated PASP is 42 mm Hg assuming RA pressure of 3 mm Hg. Compared to prior study 08/04/2016 sinus tachycardia is new. RV dilation is new. Vegetation on the tricuspid valve is old. Tricuspid regurgitation is old Assessment & Plan Pt is a 26 y/o female w/ a hx of tricuspid MSSA endocarditis, ongoing IVDA ( meth and heroin), septic PE, pneumonia, presenting to the ED c/o dyspnea. Acute sepsis with septic shock. Present on admission; ongoing - Pt presents with temp 37.9, HR 145, BP 86/52, WBC 15.4 with left shift, lactic of 2.6. - Staph endocarditis with secondary bacteremia with persistently positive blood cultures at 5 days; CT positive for mycotic pulmonary embolism - She is off norepinephrine for the time being - White count decreasing again today - Discussed with Dr. Jesus PEREZ whose note is available in the chart - Continue daptomycin and nafcillin; daptomycin has been increased by ID - Bcx taken on 02/23 are negative at 2 days. - Procal is down trending - Patient still clinically deteriorating even though labs seem to be improved. Again we discussed need for valve replacement and removal of infection foci Severe acute kidney injury. Present on admission. Resolved - Likely secondary to sepsis and hypotension. C3/C4 decrease indicating likely infectious glomerulonephritis - Creatinine initially greater than 8 and now reduced to 4.17 - Nephrology consultation and Dr. Patel currently seeing the patient - Avoid nephrotoxic agents. - Increased potassium orally Right ventricular heart failure with anasarca; present on admission; ongoing -Severe right ventricular dilation and tricuspid regurg, with pulmonary hypertension likely secondary to pulmonary embolisms -Hold fluids -Cardiology was consulted -Likely reason the norepinephrine continues to be needed, although its need his decreasing Tricuspid valve endocarditis with Septic pulmonary emboli and right heart failure, acute. Present on admission. Ongoing - CT chest showed possible septic pulmonary emboli bilaterally - Antibiotics and cultures as above - Echocardiogram demonstrates right sided heart failure due to pulmonary hypertension secondary to recurrent embolisms as well as severe tricuspid regurg - Patient will eventually need a tricuspid valve replacement; patient is a poor candidate - Discussed valve replacement and cardiac standpoint and with Dr. Patel who recommends discontinuing diuresis due to - Dr. Patel also talked to cardiology at [facility] states a candidate is not a candidate at the moment and will require 6 weeks of antibiotics in 6 months off heroin Left shoulder pain, acute. Present on admission. Stable - Pt has history of septic joint of the left sternoclavicular joint; has been seen by orthopedics during the stay - Aspirate cell count, Gram stain, culture ordered 02/22/17 - Physical therapy to work with shoulder Septic Encephalopathy; not present on admission; resolve - Patient's current hallucinations overnight and today got out of bed and stooled on the floor - Likely related to either sepsis or combination of medications including morphine, Vistaril, and Ativan. - Stopped Vistaril except at bedtime, stop morphine, decrease Ativan - Resolved with reduction in pain medication Severe thrombocytopenia, acute. Present on admission. Resolved - Platelets reached as low as 31 -Cholesterol this is due to sepsis, DIC, or side effect of her IV drug use Anion gap metabolic acidosis and lactic acidosis, acute. Present on admission, resolving - Secondary to lactic acidosis and PRISCILA. Gap 24. pH 7.26, pCO2 32.6, pO2 110, bicarb 14.2. - Trend lactic acid q2 until normal lactic acid resolved - Lactic acid in a.m. - Of 18 on 02/21/17 Hypovolemic Hyponatremia, acute. Present on admission. Resolved - Na 126 on admission. Pt receiving NS @ 150 ml/hr - Monitor CMP History of IV drug abuse. POA and Active with heroin during the week prior to arrival. - Hepatitis C negative - HIV negative History of tobacco use. By mouth and active - Nicotine patch ordered History of seizure disorder. POA and stable. - Continue home lamotrigine Disposition: Pt improving form a lab perspective but still veyr ill. Being off the pressors is a big step but she still has a ways to go. We need cardiology on board prior to attempting transfer to . If she is again identified as a non -candidate for valve replacement then she will remain with us for 6 weeks for abx infusions. VTE Prophylaxis: Other (Pt has thrombocytopenia - no DVT prophylaxis for now.) VTE Mechanical Devices: Intermittant Pneumatic CD Resuscitation Status: CPR: Attempt Resuscitation Time spent 35 minutes Attending Statement I interviewed and examined the patient on rounds today. I agree with the assessment and plan as stated above. Cristian Noguera DO Feb 25, 2017 15:52 Hugo Mcdaniels MD Feb 27, 2017 07:07
--- NOTE | 2017-02-25 18:35 | NUR ---
Fever.. Pt noted to have rigors with temp elevation to 39.4. Dr Lee notified and blood cultures ordered and drawn. Given tylenol and pt's chills and fever were reducing within the hour. Has been med with Oxycodone for L shoulder and generalized pain and is able to sleep after dose. Has had diarrhea stools x2. Med with Immodium. Remains off any pressors with stable B/P. Changed to PCC status.
[2017-02-26] VITALS (9 sets, daily range): BP systolic 94–138; BP diastolic 65–89; PULSE 90–119; RESP 22–39; O2SAT 96–100
[2017-02-26] MEDS: Dextromethorphan Polistirix 6 mg/mL 90 mL Suspension PO PRN ×4 (00:48→23:54)
[2017-02-26 04:53] LABS: BASOPHILS % (AUTO) 0.5 % (0-3); EOSINOPHILS % (AUTO) 0 % (0-5); MONOCYTES % (AUTO) 5.1 % (4-12); Mean Corpuscular Volume 93.8 fL (81-100); NEUTROPHILS % (AUTO) 74.9 % (40-74); Platelet Count 269 bil/L (150-400)
--- NOTE | 2017-02-26 06:04 | NUR ---
Pain/Temp Pt c/o continuous gen. malaise and L shoulder pain at 8-9/10, Oxycodone given about q 4hrs with minimal effect per pt report. Pt still had elevated temp over night (see flow sheet). Tylenol given, results pending. Pt is appropriate and cooperative with care, mildly anxious and Ativan given for this x2 with good results.
[2017-02-26] MEDS: INFUSION IV SCH ×3 (08:30)
[2017-02-26] MEDS: NAFCILLIN IV SCH ×4 (08:30→11:11)
[2017-02-26] MEDS: Potassium Chloride 20 mEq SR Tablet PO SCH ×2 (11:11→19:39)
[2017-02-26] MEDS: lamoTRIgine 100 mg Tablet PO SCH ×2 (11:11→19:39)
[2017-02-26] MEDS: SODIUM CHLORIDE 0.9% IV SCH (11:11)
[2017-02-26] MEDS: DAPTOmycin Inj 750 MG in 0.9% Sodium Chloride 50 ML IV SCH (11:12)
--- NOTE | 2017-02-26 11:47 | PCM.PNNEPH ---
Subjective Date of Service Feb 26, 2017 Subjective Patient is continuing to improve. She offers no new complaints other than her LEFT shoulder pain and intermittent cough. She remains afebrile and her blood pressure is still in the 90s to low 100s. Last 24-hour she has had 2606 in and 3100 out with 2000 out in the last 8 hours. Her sodium this morning is 137, potassium 3.8, chloride 106, bicarbonate 17, BUN and creatinine were 27 and 2.27 with a hemoglobin of 7.5. Exam Vital Signs Vital Sign - Last Date Time Temp Pulse Resp B/P Pulse Ox O2 Delivery O2 Flow Rate FiO2 02/26/17 09:50 90 26 97 Room Air 02/26/17 09:30 36.7 99/65 02/24/17 00:15 4.00 Intake and Output 02/25/17 02/25/17 02/26/17 Cumulative From/Thru 15:00 23:00 07:00 02/16/17 23:36 - 02/26/17 06:22 Intake Total 1158 ml 2210 ml 69123 ml Output Total 2000 ml 2000 ml 30545 ml Balance -842 ml 210 ml 18638 ml Intake Oral 680 ml 1550 ml 51703 ml IV Total 478 ml 660 ml 48988 ml Tube Feeding 400 ml Platelets 490 ml Output Urine Total 1500 ml 2000 ml 11982 ml Stool Total 500 ml 800 ml # Bowel Movements 13 Exam HEENT examination is remarkable for pale sclera. Neck is supple without adenopathy, thyromegaly, or jugular venous distention. Lungs are clear with somewhat diminished. Abdomen is soft without any tenderness rebound guarding masses or hepatosplenomegaly. Extremities continued to demonstrate some mild generalized edema. Lab and Diagnostics Result Diagram: 02/26/1744402/26/17444 X-Rays, CTs and MRIs . X-RAY CHEST ONE VIEW, PORTABLE IMPRESSION: Diffuse bilateral patchy air space opacities suspicious for pneumonia. Dictated by: Delon LEYVA Interpreted: Jose Enrique York MD on 02/17/2017 X-RAY CHEST ONE VIEW, PORTABLE IMPRESSION: 1. Right internal jugular central venous catheter is in expected position. No pneumothorax. 2. Bilateral septic emboli as before. Dictated by: Lance Dan M.D. on 02/17/2017 CT CHEST, ABDOMEN AND PELVIS WITHOUT CONTRAST IMPRESSION: 1. Multiple bilateral cavitary lesions in the lungs consistent with recurrent septic emboli. The differential for these imaging findings includes inflammatory processes as well as metastatic disease but these are less likely given patient's prior history of septic emboli. 2. Slight asymmetric appearance of the right kidney with minimal perinephric stranding. However, evaluation for pyelonephritis is limited in the absence of intravenous contrast. Recommend correlation clinically. There is no hydronephrosis. 3. Mildly prominent bladder wall thickness likely due to incomplete distention. Recommend correlation with urinalysis. Dictated by: Sulaiman Haines M.D. on 02/17/2017 CT BRAIN WITHOUT CONTRAST IMPRESSION: 1. No acute intracranial abnormality. Dictated by: Sulaiman Haines M.D. on 02/17/2017 Cardiac Echo Impressions . Echocardiogram Report Name: RAJANI LASTON JStudeliza Mirza e: 02/17/2017 Height : 63 in Hospital Exam Location: [facility] Weight : 155 lb Gender: Female BSA: 1 .7 m2 : 1990 Age: 26 yrs BP: 10 1/64 mmHg Reason For Study: ENDOCARDITIS/SEPSIS Ordering Physician: Stevie Jean Performed By: Hanny Wisdom Referring Physician: CHAPARRO BULL Interpretation Summary Sinus tachycardia. Normal LV size and wall thickness. There is normal LV wall motion and systolic function. EF is 55-60%. There is severe RV dilation with normal wall motion. There is severe RA dilation. There is a 2.5x0.9 cm vegetation on the downstream side of the tricuspid valve leaflet. There is moderate tricuspid regurgittation. There is normal valve structure and function otherwise. Estimated PASP is 42 mm Hg assuming RA pressure of 3 mm Hg. Compared to prior study 08/04/2016 sinus tachycardia is new. RV dilation is new. Vegetation on the tricuspid valve is old. Tricuspid regurgitation is old Plan Impression Impression #1 acute staphylococcal glomerulonephritis #2 pyelonephritis which is resolved #3 metabolic acidosis #4 acute anemia with the possibility of hemolytic anemia versus GI loss. Recommendations #1 I would like to discontinue her Neff catheter is afebrile right now this merely represents another source of bleeding infection. #2 would like to get a haptoglobin and LDH along with stool guaiacs. I will go ahead and give her a dose of Aranesp and check her iron studies. He did continue to monitor her intake, output, and lab. Abel Monge DO Feb 26, 2017 11:47
[2017-02-26] MEDS ORDERED: Darbepoetin Alfa 60 mCg/0.3 mL Inj SUBQ ONE (11:50)
--- NOTE | 2017-02-26 12:58 | NUR ---
1150 Arenesp/Rigors Patient is currently having rigors, in 02/24 generalized pain post pain medication/anxiety medication and temp of 38 C, requesting to take SUB Q Arenesp later on in the afternoon and to see MD. consulted, ok per Dr. Mcdaniels to wait on Arensep for now, will come up to assess patient.
[2017-02-26] MEDS: Ondansetron 2 mg/mL 2 mL Inj IVPUSH PRN ×3 (14:37→23:02)
--- NOTE | 2017-02-26 16:02 | PCM.PNMED ---
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 She continues to cough, unproductive. She has diffuse body pains, and focal left shoulder pain which is chronic. She has poor pain tolerance and requests increase opioid medications. Blood cultures are negative since 02/21 and WBC count declining slightly, but she continues to be febrile. Exam Vital Signs Vital Sign - Last Date Time Temp Pulse Resp B/P Pulse Ox O2 Delivery O2 Flow Rate FiO2 02/26/17 12:40 38.0 97 24 112/68 96 Room Air 02/24/17 00:15 4.00 Intake and Output 02/25/17 02/25/17 02/26/17 Cumulative From/Thru 15:00 23:00 07:00 02/16/17 23:36 - 02/26/17 06:22 Intake Total 1158 ml 2210 ml 74607 ml Output Total 2000 ml 2000 ml 87119 ml Balance -842 ml 210 ml 58578 ml Intake Oral 680 ml 1550 ml 07920 ml IV Total 478 ml 660 ml 32760 ml Tube Feeding 400 ml Platelets 490 ml Output Urine Total 1500 ml 2000 ml 20212 ml Stool Total 500 ml 800 ml # Bowel Movements 13 Exam General: Pale, dysphoric, observed to have significant rigors today HEENT: sclerae anicteric, Neck: no JVD Chest: Coarse ventricular crackles and coughing Cardiac: S1S2, II/ murmur Abdomen: BS normal, non-tender Extremities: No pitting edema Neuro: A&O, cranial nerves symmetric, motor strength and coordination normal IVs and Medications Medications Reviewed: Medications were reviewed in detail Lab and Diagnostics Result Diagram: 02/26/1744402/26/17444 X-Rays, CTs and MRIs . X-RAY CHEST ONE VIEW, PORTABLE IMPRESSION: Diffuse bilateral patchy air space opacities suspicious for pneumonia. Dictated by: Delon LEYVA Interpreted: Jose Enrique York MD on 02/17/2017 X-RAY CHEST ONE VIEW, PORTABLE IMPRESSION: 1. Right internal jugular central venous catheter is in expected position. No pneumothorax. 2. Bilateral septic emboli as before. Dictated by: Lance Dan M.D. on 02/17/2017 CT CHEST, ABDOMEN AND PELVIS WITHOUT CONTRAST IMPRESSION: 1. Multiple bilateral cavitary lesions in the lungs consistent with recurrent septic emboli. The differential for these imaging findings includes inflammatory processes as well as metastatic disease but these are less likely given patient's prior history of septic emboli. 2. Slight asymmetric appearance of the right kidney with minimal perinephric stranding. However, evaluation for pyelonephritis is limited in the absence of intravenous contrast. Recommend correlation clinically. There is no hydronephrosis. 3. Mildly prominent bladder wall thickness likely due to incomplete distention. Recommend correlation with urinalysis. Dictated by: Sulaiman Haines M.D. on 02/17/2017 CT BRAIN WITHOUT CONTRAST IMPRESSION: 1. No acute intracranial abnormality. Dictated by: Sulaiman Haines M.D. on 02/17/2017 Cardiac Echo Impressions . Echocardiogram Report Name: RAJANI ALSTON JStudy Mirza e: 02/17/2017 Height : 63 in Hospital Exam Location: [facility] Weight : 155 lb Gender: Female BSA: 1 .7 m2 : 1990 Age: 26 yrs BP: 10 1/64 mmHg Reason For Study: ENDOCARDITIS/SEPSIS Ordering Physician: Stevie Jean Performed By: Hanny Wisdom Referring Physician: CHAPARRO BULL Interpretation Summary Sinus tachycardia. Normal LV size and wall thickness. There is normal LV wall motion and systolic function. EF is 55-60%. There is severe RV dilation with normal wall motion. There is severe RA dilation. There is a 2.5x0.9 cm vegetation on the downstream side of the tricuspid valve leaflet. There is moderate tricuspid regurgittation. There is normal valve structure and function otherwise. Estimated PASP is 42 mm Hg assuming RA pressure of 3 mm Hg. Compared to prior study 08/04/2016 sinus tachycardia is new. RV dilation is new. Vegetation on the tricuspid valve is old. Tricuspid regurgitation is old Assessment & Plan Pt is a 26 y/o female w/ a hx of tricuspid MSSA endocarditis, ongoing IVDA ( meth and heroin), septic PE, pneumonia, presenting to the ED c/o dyspnea. Acute sepsis with septic shock. Present on admission; ongoing. Pt presented with temp 37.9, HR 145, BP 86/52, WBC 15.4 with left shift, lactic of 2.6. MSSA endocarditis with secondary bacteremia with persistently positive blood cultures at 5 days; CT positive for mycotic pulmonary embolism. Bcx negative since 02/21. Procal is down trending - Off norepinephrine for the time being; maintain mean arterial pressure of 65 mmHg - Continue daptomycin and nafcillin; daptomycin has been increased by ID - Patient still highly symptomatic with fevers and rigors. Severe acute kidney injury. Present on admission. Resolved. - Likely secondary to sepsis and hypotension. C3/C4 decrease indicating likely infectious glomerulonephritis - Creatinine initially greater than 8 and now reduced to 2.27 - Nephrology consultation and Dr. Patel currently seeing the patient - Avoid nephrotoxic agents. 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 Present on admission. Ongoing - CT chest showed septic pulmonary emboli bilaterally - Echocardiogram demonstrates a tricuspid vegetation, moderate tricuspid regurg , right sided heart failure - Dr. Patel and Dr. Riddle indicate that the patient is not a candidate is not a candidate at the moment and will require 6 weeks of antibiotics in 6 months off heroin Left shoulder pain, acute on chronic. Present on admission. Stable - Pt has history of septic joint of the left sternoclavicular joint; has been seen by orthopedics during the stay - Aspirate cell count, Gram stain, culture ordered 02/22/17 - Physical therapy to work with shoulder Opioid dependence, chronic. The patient is tearful and frustrated that she is not receiving higher doses of opioid analgesics. Patient is demonstrating opioid seeking behaviors. She does not have an outpatient prescription for opioid analgesics. She is receiving oxycodone 5 mg every 4 hours when necessary. Nurses have observed the patient to pocket her oxycodone and administer them IV to herself. She was counseled regarding unacceptability this behavior. - Patient was counseled that increasing her opioid dependence with inpatient opioid medications, especially parenteral, of adverse long-term consequences for her health. - Current pain complaints consist of a chronic musculoskeletal complaints for which opioids are not indicated, and sepsis related rigors and musculoskeletal complaints which may be managed with antipyretics and nonsteroidal analgesics. - She should not receive additional opioids Resolving, stable and or chronic problems: Hypokalemia, not present on admission. Matthew value of 2.7. -Supplement potassium orally Right ventricular heart failure with anasarca; present on admission; ongoing -Severe right ventricular dilation and tricuspid regurg, with pulmonary hypertension likely secondary to pulmonary embolisms -Cardiology was consulted Septic Encephalopathy; not present on admission; resolved. Patient had hallucinations, got out of bed and stooled on the floor. Likely related to either sepsis or combination of medications including morphine, Vistaril, and Ativan. - Stopped Vistaril except at bedtime, stop morphine, decrease Ativan - Resolved with reduction in pain medication Severe thrombocytopenia, acute. Present on admission. Resolved - Platelets reached as low as 31, due to sepsis Anion gap metabolic acidosis and lactic acidosis, acute. Present on admission, resolving. Secondary to lactic acidosis and PRISCILA. Gap 24. pH 7.26, pCO2 32.6, pO2 110, bicarb 14.2. - Resolved Hypovolemic Hyponatremia, acute. Present on admission. Resolved - Na 126 on admission. Pt receiving NS @ 150 ml/hr - Resolved History of IV drug abuse. POA and Active with heroin during the week prior to arrival. - Hepatitis C negative - HIV negative History of tobacco use. By mouth and active - Nicotine patch ordered History of seizure disorder. POA and stable. - Continue home lamotrigine Disposition: We are currently planning 6 weeks of inpatient antibiotics for endocarditis. Pain Evaluation: Pain not Controlled VTE Prophylaxis: Other (Pt has thrombocytopenia - no DVT prophylaxis for now.) VTE Mechanical Devices: Intermittant Pneumatic CD Resuscitation Status: CPR: Attempt Resuscitation Time spent 40 minutes Hugo Mcdaniels MD Feb 26, 2017 16:02
--- NOTE | 2017-02-26 16:13 | NUR ---
Social Work: Continued d/c planning Data: Pt is on day 9 of hospitalization. EMR reviewed. Pt discussed in multidisciplinary rounds. MD states pt will remain in hospital for 6 weeks for IVABX. [employer] will continue to follow for possible d/c needs. Assessment: Pt who is independent at baseline, currently not capable of self care. Plan: [employer] will continue to follow for d/c planning needs. BINA Llamas
--- NOTE | 2017-02-26 19:08 | PCM.PROC ---
Procedure Note Date of Service: Feb 26, 2017 Pre Procedure Diagnosis: Bacterial Endocarditis Post Procedure Diagnosis: Bacterial Endocarditis Procedure: Central Line - Left IJ Provider and Photo Lab Technician: Dr. Serenity D.O. Kristina Potter. Indication for Procedure: Patient contaminated previous central line. Procedural Analgesia: 3mg of PO ativan given to the patient prior to the procedure and the area was anesthetized with 1% lidocaine. Procedure Details: A time-out was completed verifying correct patient, procedure, site, positioning , and special equipment if applicable. The patient was placed in a supine with mild trendelenburg. The patients left neck was prepped and draped in sterile fashion. 1% Lidocaine was used to anesthetize the surrounding subcutaneous skin. A triple lumen catheter was introduced into the the left internal jugular using the Seldinger technique under ultrasound guidance. The catheter was threaded smoothly over the guide wire and appropriate blood return was obtained. Each lumen of the catheter was evacuated of air and flushed with sterile saline. The catheter was then sutured in place with 2.0 silk to the skin and a sterile dressing applied. Perfusion to the extremity distal to the point of catheter insertion was checked and found to be adequate. Catheter was secured at 14 inches and appropriate placement was confirmed by CXR. Estimated Blood Loss: < 10ml The patient tolerated the procedure well and there were no complications. Post procedure bleeding was monitored and minimal. Attending Statement The patient was seen and examined together with Dr. Reyes on 02/26/17 and I have added additional information to the note above. Fausto Reyes DO Feb 26, 2017 19:08 Adeola Benton DO Feb 26, 2017 20:04
--- NOTE | 2017-02-26 19:52 | NUR ---
Temperature/GI/ No reports of chest pain/pressure/discomfort. Tele sinus tach 110s. BP 90-110ss/50-60ss throughout shift. Generalized trace edema. Denies SOB, RR at rest 26-30. SPO2 mid to high 90s on RA. Reports intermittent but at times persistent cough with no sputum production. No reports of n/v, denies abdominal pain. Incontinent of stool, patient reports "It feels like I have a UTI" -- RN notes sediment and cloudy urine while DCing and emptying larios at approx 1700. Patient voided spontaneously during removal and RN noted pink/red tinge. BSC contents showed some cait blood, guaiac ordered, mixed stool and urine -- unable to obtain sample.Alert and oriented x3, VELARDE, reports full sensation. Painful left shoulder with little to no ROM. Per PT, refused PT services today. Febrile intermittently throughout shift, highest of 102.9 F post 650mg PO tylenol administration -- MD aware.
[2017-02-26] MEDS ORDERED: Sodium Chloride LOK Flush 10 mL Syringe IVFLUSH PRN ×2 (19:55)
--- NOTE | 2017-02-26 20:01 | DRSVH ---
PROCEDURE: X-RAY CHEST ONE VIEW, PORTABLE ([id number]) INDICATIONS: Post Central line LEFT SIDE TECHNIQUE: One view of the chest was acquired. COMPARISON: [facility], CR, XR CHEST 1VW (PORTABLE), 02/23/2017, 5:13. [facility], CR, XR CHEST 1VW (PORTABLE), 02/17/2017, 19:28. [facility], CR, XR CHEST 1VW (PORT ABLE), 02/17/2017, 0:01. [facility], CR, XR CHEST 1VW (PORTABLE), 07/16/2016, 12:31. FINDINGS: Surgical changes and devices: Right IJ CVC with tip in the SVC. Persistent bilateral pulmonary opacit ies greatest in the left lung apex. Many demonstrate central areas of lucency consistent with known h istory of septic emboli. Lungs and pleura: No pleural effusions or pneumothorax. Lungs are clear. Mediastinum: Mediastinal contours appear normal. Heart size is normal. Bones and chest wall: No suspicious bony lesions. Overlying soft tissues appear unremarkable. IMPRESSION: 1. Right IJ CVC with tip in SVC. 2. Stable multiple pulmonary opacities some which are cavitated. Dictated by: Cliff Bryant M.D. on 02/26/2017 at 19:58 Approved by: Cliff Bryant M.D. on 02/26/2017 at 20:00
[2017-02-26] MEDS: Norepineph 8,000 mCg/250 mL NS 8,000 MCG in IV Premix 1 EACH IV SCH ×2 (21:03)
[2017-02-27] VITALS (14 sets, daily range): BP systolic 90–126; BP diastolic 62–88; PULSE 107–121; RESP 20–27; O2SAT 94–99
[2017-02-27 03:14] LABS: Unsaturated Iron Binding 97.8 ug/dL
--- NOTE | 2017-02-27 04:55 | NUR ---
MENTATION Pt was found out of bed naked in bathroom with IV detached from IJ port, neck and chest covered in blood. Pt was cleaned and IJ patency maintained and hooked back up. Pt was confused on how to handle her urgency to defecate. Pt did not want to defecate in the bed and couldn't wait for nurse or aid. Pt was emotional and confused throughout the night.
[2017-02-27] MEDS: Dextromethorphan Polistirix 6 mg/mL 90 mL Suspension PO PRN ×2 (05:13→10:39)
[2017-02-27 10:11] LABS: BASOPHILS % (AUTO) 0.3 % (0-3); MONOCYTES % (AUTO) 5.2 % (4-12); Mean Corpuscular Hemoglobin 30.9 pg (27.0-35.0); Mean Corpuscular Volume 96.9 fL (81-100); Platelet Count 327 bil/L (150-400)
[2017-02-27] MEDS: Potassium Chloride 20 mEq SR Tablet PO SCH ×2 (10:38→18:01)
[2017-02-27] MEDS: lamoTRIgine 100 mg Tablet PO SCH (10:39)
[2017-02-27 10:58] LABS: EOSINOPHILS % (AUTO) 0 % (0-5); NEUTROPHILS % (AUTO) 74 % (40-74)
[2017-02-27] MEDS: SODIUM CHLORIDE 0.9% IV SCH (11:14)
[2017-02-27] MEDS: NAFCILLIN IV SCH (11:14)
[2017-02-27] MEDS: Ondansetron 2 mg/mL 2 mL Inj IVPUSH PRN ×2 (11:14→18:01)
--- NOTE | 2017-02-27 12:38 | PCM.PNMED ---
Subjective Date of Service Feb 27, 2017 Subjective Patient continues to have fevers and signs of sepsis although her blood cultures returning negative at this time. Repeats are pending. Overall patient does not state she feels any better and recently she has been having some behavioral issues. Yesterday she attempted to crush her Roxicodone and injected through her central line extending became occluded and had to be replaced. Because of this the patient now has a left IJ. Patient has also been disconnecting her central line and going to the bathroom as she states nursing some fast enough to her room. Discussed about having the bedside commode and been able to use that without needing nursing or disconnecting her central line. Patient significant blood loss after disconnecting her line and her CBC was done on morning blood return around 10 AM with a hemoglobin of 5.9. Exam Vital Signs Vital Sign - Last Date Time Temp Pulse Resp B/P Pulse Ox O2 Delivery O2 Flow Rate FiO2 02/27/17 10:44 38.0 115 22 99/65 97 Room Air 02/24/17 00:15 4.00 Intake and Output 02/26/17 02/26/17 02/27/17 Cumulative From/Thru 15:00 23:00 07:00 02/16/17 23:36 - 02/27/17 05:57 Intake Total 780 ml 1706 ml 87905 ml Output Total 1750 ml 94645 ml Balance -970 ml 1706 ml 77227 ml Intake Oral 780 ml 1200 ml 61985 ml IV Total 506 ml 22384 ml Tube Feeding 400 ml Platelets 490 ml Output Urine Total 1750 ml 48722 ml Stool Total 800 ml # Voids 4 4 # Bowel Movements 0 13 Exam General: toxic but conversive Cardio: Regular rate and rhythm; 2-3/6 systolic murmur over the lower left sternal border Respiratory: CTA bilaterally, no wheezes, no crackles Abdomen: Soft, positive bowel sounds, mildly tender Extremities: No edema, sensation intact Psych: Agitated Neuro: CN II through XII grossly intact, sensation intact throughout Skin: No rash IVs and Medications Medications Reviewed: Medications were reviewed in detail Lab and Diagnostics Result Diagram: 02/27/1724402/27/17244 X-Rays, CTs and MRIs . X-RAY CHEST ONE VIEW, PORTABLE IMPRESSION: Diffuse bilateral patchy air space opacities suspicious for pneumonia. Dictated by: Delon LEYVA Interpreted: Jose Enrique York MD on 02/17/2017 X-RAY CHEST ONE VIEW, PORTABLE IMPRESSION: 1. Right internal jugular central venous catheter is in expected position. No pneumothorax. 2. Bilateral septic emboli as before. Dictated by: Lance Dan M.D. on 02/17/2017 CT CHEST, ABDOMEN AND PELVIS WITHOUT CONTRAST IMPRESSION: 1. Multiple bilateral cavitary lesions in the lungs consistent with recurrent septic emboli. The differential for these imaging findings includes inflammatory processes as well as metastatic disease but these are less likely given patient's prior history of septic emboli. 2. Slight asymmetric appearance of the right kidney with minimal perinephric stranding. However, evaluation for pyelonephritis is limited in the absence of intravenous contrast. Recommend correlation clinically. There is no hydronephrosis. 3. Mildly prominent bladder wall thickness likely due to incomplete distention. Recommend correlation with urinalysis. Dictated by: Sulaiman Haines M.D. on 02/17/2017 CT BRAIN WITHOUT CONTRAST IMPRESSION: 1. No acute intracranial abnormality. Dictated by: Sulaiman Haines M.D. on 02/17/2017 Cardiac Echo Impressions . Echocardiogram Report Name: RAJANI ALSTON JStudy Mirza e: 02/17/2017 Height : 63 in Hospital Exam Location: [facility] Weight : 155 lb Gender: Female BSA: 1 .7 m2 : 1990 Age: 26 yrs BP: 10 1/64 mmHg Reason For Study: ENDOCARDITIS/SEPSIS Ordering Physician: Stevie Duránist Performed By: Hanny Wisdom Referring Physician: CHAPARRO BULL Interpretation Summary Sinus tachycardia. Normal LV size and wall thickness. There is normal LV wall motion and systolic function. EF is 55-60%. There is severe RV dilation with normal wall motion. There is severe RA dilation. There is a 2.5x0.9 cm vegetation on the downstream side of the tricuspid valve leaflet. There is moderate tricuspid regurgittation. There is normal valve structure and function otherwise. Estimated PASP is 42 mm Hg assuming RA pressure of 3 mm Hg. Compared to prior study 08/04/2016 sinus tachycardia is new. RV dilation is new. Vegetation on the tricuspid valve is old. Tricuspid regurgitation is old Assessment & Plan Pt is a 26 y/o female w/ a hx of tricuspid MSSA endocarditis, ongoing IVDA ( meth and heroin), septic PE, pneumonia, presenting to the ED c/o dyspnea. Acute sepsis with septic shock. Present on admission; ongoing. - Pt presented with temp 37.9, HR 145, BP 86/52, WBC 15.4 with left shift, lactic of 2.6. MSSA endocarditis with secondary bacteremia with persistently positive blood cultures at 5 days; CT positive for mycotic pulmonary embolism. Bcx negative since 02/21. Procal is down trending - Off norepinephrine for the time being; maintain mean arterial pressure of 65 mmHg - Continue daptomycin and nafcillin; daptomycin has been increased by ID - Patient still highly symptomatic with fevers and rigors. Acute blood loss anemia; present on admission; ongoing -Patient's hemoglobin this morning was 5.9 due to her disconnecting her central line to go the bathroom, with significant blood loss back through the line -2 units PRBCs ordered stat Severe acute kidney injury. Present on admission. Improving - Likely secondary to sepsis and hypotension. C3/C4 decrease indicating likely infectious glomerulonephritis - Creatinine initially greater than 8 and now reduced to 2.27 - Nephrology consultation and Dr. Patel currently seeing the patient - Avoid nephrotoxic agents. Persistent Diarrhea; present on admission; ongoing -Patient continues to have diarrhea which was present when she initially presented and then decrease with loperamide -Could be a sign of opiate withdrawal although she has been on Roxicodone -We will try lomotil today -Previous C. difficile was negative; we will send additional sample and check again. 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 Present on admission. Ongoing - CT chest showed septic pulmonary emboli bilaterally - Echocardiogram demonstrates a tricuspid vegetation, moderate tricuspid regurg , right sided heart failure - Dr. Patel and Dr. Riddle indicate that the patient is not a candidate is not a candidate at the moment and will require 6 weeks of antibiotics in 6 months off heroin -Patient's attempted injection of Roxicodone into her central line that raises the question whether she will meet surgical criteria for valve replacement. Opioid dependence, chronic. The patient is tearful and frustrated that she is not receiving higher doses of opioid analgesics. Patient is demonstrating opioid seeking behaviors. She does not have an outpatient prescription for opioid analgesics. She is receiving oxycodone 5 mg every 4 hours when necessary. Nurses have observed the patient to pocket her oxycodone and administer them IV to herself. She was counseled regarding unacceptability this behavior. - Patient was counseled that increasing her opioid dependence with inpatient opioid medications, especially parenteral, of adverse long-term consequences for her health. - Current pain complaints consist of a chronic musculoskeletal complaints for which opioids are not indicated, and sepsis related rigors and musculoskeletal complaints which may be managed with antipyretics and nonsteroidal analgesics. - She should not receive additional opioids - Ativan 1 mg every 4 hours and will start decreasing Roxicodone Resolving, stable and or chronic problems: Left shoulder pain, acute on chronic. Present on admission. Resolving - Pt has history of septic joint of the left sternoclavicular joint; has been seen by orthopedics during the stay - Aspirate cell count, Gram stain, culture ordered 02/22/17 - Physical therapy to work with shoulder Hypokalemia, not present on admission. Matthew value of 2.7. -Supplement potassium orally Right ventricular heart failure with anasarca; present on admission; ongoing -Severe right ventricular dilation and tricuspid regurg, with pulmonary hypertension likely secondary to pulmonary embolisms -Cardiology was consulted Septic Encephalopathy; not present on admission; resolved. Patient had hallucinations, got out of bed and stooled on the floor. Likely related to either sepsis or combination of medications including morphine, Vistaril, and Ativan. - Stopped Vistaril except at bedtime, stop morphine, decrease Ativan - Resolved with reduction in pain medication Severe thrombocytopenia, acute. Present on admission. Resolved - Platelets reached as low as 31, due to sepsis Anion gap metabolic acidosis and lactic acidosis, acute. Present on admission, resolving. Secondary to lactic acidosis and PRISCILA. Gap 24. pH 7.26, pCO2 32.6, pO2 110, bicarb 14.2. - Resolved Hypovolemic Hyponatremia, acute. Present on admission. Resolved - Na 126 on admission. Pt receiving NS @ 150 ml/hr - Resolved History of IV drug abuse. POA and Active with heroin during the week prior to arrival. - Hepatitis C negative - HIV negative History of tobacco use. By mouth and active - Nicotine patch ordered History of seizure disorder. POA and stable. - Continue home lamotrigine Disposition: We will need 6 weeks inpatient antibiotics VTE Prophylaxis: Other (Pt has thrombocytopenia - no DVT prophylaxis for now.) VTE Mechanical Devices: Intermittant Pneumatic CD Resuscitation Status: CPR: Attempt Resuscitation Time spent 40 minutes Attending Statement I interviewed and examined the patient on rounds today. Evidence of opioid medication misuse is troubling with regard to potential valve replacement. At present I concur with the opinion that if possible should be treated with antibiotics and comply with opioid tendency treatment prior to surgical referral. I agree with the assessment and plan as stated above. Cristian Noguera DO Feb 27, 2017 12:38 Hugo Mcdaniels MD Feb 27, 2017 16:24
--- NOTE | 2017-02-27 12:48 | PCM.PNNEPH ---
Subjective Date of Service Feb 27, 2017 Subjective The patient's renal function continues to slowly improve. She apparently occluded her central line attempting to inject into it. The last 24-hour she has had 2990 N and 3750 out. Exam Vital Signs Vital Sign - Last Date Time Temp Pulse Resp B/P Pulse Ox O2 Delivery O2 Flow Rate FiO2 02/27/17 10:44 38.0 115 22 99/65 97 Room Air 02/24/17 00:15 4.00 Intake and Output 02/26/17 02/26/17 02/27/17 Cumulative From/Thru 15:00 23:00 07:00 02/16/17 23:36 - 02/27/17 05:57 Intake Total 780 ml 1706 ml 27603 ml Output Total 1750 ml 97631 ml Balance -970 ml 1706 ml 75953 ml Intake Oral 780 ml 1200 ml 59442 ml IV Total 506 ml 01057 ml Tube Feeding 400 ml Platelets 490 ml Output Urine Total 1750 ml 21216 ml Stool Total 800 ml # Voids 4 4 # Bowel Movements 0 13 Exam Patient is quite somnolent and difficult to arouse. Lungs are clear to auscultation. Heart is regular with a harsh systolic murmur noted. Abdomen soft without any tenderness rebound or guarding noted. She reassures mild generalized edema. Lab and Diagnostics Result Diagram: 02/27/17 0245 02/27/17 024 X-Rays, CTs and MRIs . X-RAY CHEST ONE VIEW, PORTABLE IMPRESSION: Diffuse bilateral patchy air space opacities suspicious for pneumonia. Dictated by: Delon Pelayo RR Interpreted: Jose Enrique York MD on 02/17/2017 X-RAY CHEST ONE VIEW, PORTABLE IMPRESSION: 1. Right internal jugular central venous catheter is in expected position. No pneumothorax. 2. Bilateral septic emboli as before. Dictated by: Lance Dan M.D. on 02/17/2017 CT CHEST, ABDOMEN AND PELVIS WITHOUT CONTRAST IMPRESSION: 1. Multiple bilateral cavitary lesions in the lungs consistent with recurrent septic emboli. The differential for these imaging findings includes inflammatory processes as well as metastatic disease but these are less likely given patient's prior history of septic emboli. 2. Slight asymmetric appearance of the right kidney with minimal perinephric stranding. However, evaluation for pyelonephritis is limited in the absence of intravenous contrast. Recommend correlation clinically. There is no hydronephrosis. 3. Mildly prominent bladder wall thickness likely due to incomplete distention. Recommend correlation with urinalysis. Dictated by: Sulaiman Haines M.D. on 02/17/2017 CT BRAIN WITHOUT CONTRAST IMPRESSION: 1. No acute intracranial abnormality. Dictated by: Sulaiman Haines M.D. on 02/17/2017 Cardiac Echo Impressions . Echocardiogram Report Name: RAJANI ALSTON JStudy Mirza e: 02/17/2017 Height : 63 in Hospital Exam Location: [facility] Weight : 155 lb Gender: Female BSA: 1 .7 m2 : 1990 Age: 26 yrs BP: 10 1/64 mmHg Reason For Study: ENDOCARDITIS/SEPSIS Ordering Physician: Stevie Jean Performed By: Hanny Wisdom Referring Physician: CHAPARRO BULL Interpretation Summary Sinus tachycardia. Normal LV size and wall thickness. There is normal LV wall motion and systolic function. EF is 55-60%. There is severe RV dilation with normal wall motion. There is severe RA dilation. There is a 2.5x0.9 cm vegetation on the downstream side of the tricuspid valve leaflet. There is moderate tricuspid regurgittation. There is normal valve structure and function otherwise. Estimated PASP is 42 mm Hg assuming RA pressure of 3 mm Hg. Compared to prior study 08/04/2016 sinus tachycardia is new. RV dilation is new. Vegetation on the tricuspid valve is old. 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 An LDH was ordered stat yesterday and 24 hours later I contacted lab and they were unable to give any information on why this was not done. Abel Monge DO Feb 27, 2017 12:48
[2017-02-27] MEDS ORDERED: Ferric Sod Gluc Complex Inj 125 MG in 0.9% Sodium Chloride 100 ML IV ONE (12:50)
[2017-02-27] MEDS: DiphenOXYlate-Atropine 2.5 mg-0.025 mg Tablet PO PRN (18:01)
[2017-02-27] MEDS ORDERED: 0.9% Sodium Chloride 250 ML ONE (18:14)
--- NOTE | 2017-02-27 18:35 | NUR ---
GI/Pain No reports of chest pain/pressure/discomfort. Tele sinus tach 110-120ss. BP 90s/50s throughout shift Generalized trace edema. Denies SOB, RR at rest 22-28. SPO2 mid to high 90s on RA. Reports intermittent but at times persistent cough with no sputum production. Reports mild consistent nausea. No abdominal pain or emesis. Diarrhea this AM x2, Immodium and Lomotil in addition to zofran x2 given throughout shift. Patient is having pure liquid stools with urine mix frequently. Unable to obtain C diff sample due to contamination. Reports ongoing pain, 6-8/10 throughout shift both before and after 5mg Nilsa given x2 -- patient states "it doesn't even really work".
[2017-02-28] VITALS (8 sets, daily range): BP systolic 104–135; BP diastolic 70–96; PULSE 104–120; RESP 16–38; O2SAT 94–99
[2017-02-28] MEDS: Norepineph 8,000 mCg/250 mL NS 8,000 MCG in IV Premix 1 EACH IV SCH
[2017-02-28] MEDS: lamoTRIgine 100 mg Tablet PO SCH ×4 (01:30→22:40)
[2017-02-28] MEDS: Dextromethorphan Polistirix 6 mg/mL 90 mL Suspension PO PRN ×4 (01:31→22:49)
[2017-02-28] MEDS: Ondansetron 2 mg/mL 2 mL Inj IVPUSH PRN ×2 (04:47→22:38)
[2017-02-28 04:52] LABS: Mean Corpuscular Hemoglobin 30.1 pg (27.0-35.0); Mean Corpuscular Volume 90.7 fL (81-100); Platelet Count 296 bil/L (150-400)
[2017-02-28 04:59] LABS: Magnesium 1.5 mg/dL (1.6-2.6); Phosphorus 4.2 mg/dL (2.5-4.9)
[2017-02-28 05:05] LABS: BASOPHILS % (AUTO) 0 % (0-3); EOSINOPHILS % (AUTO) 2 % (0-5); MONOCYTES % (AUTO) 2 % (4-12); NEUTROPHILS % (AUTO) 68 % (40-74)
--- NOTE | 2017-02-28 06:27 | NUR ---
PAIN/BLOOD A/O, VELARDE, UP TO BSC INDEPENDENTLY. REMINDED TO USE LIGHT FOR NEEDS WHEN NOT IN BED, TO PROTECT LINES. C/O GENERALIZED PAIN THROUGHOUT SHIFT. RANGES BETWEEN 6-9/10, WITH VERY LITTLE RELIEF. NOT ACUTE DISTRESS OBSERVED. PERSISTENT COUGH, NON-PRODUCTIVE, C/O CHEST DISCOMFORT R/T COUGH. DELSYM GIVEN Q 4HRS. RESTED INTERMITTENTLY, WITH EYES CLOSED. GIVEN 1U PRBC (TOTAL OF 2), LAB DRAWN WITH IMPROVEMENT. REPORT GIVEN TO ON COMING RN.
[2017-02-28] MEDS ORDERED: Sodium Chloride LOK Flush 10 mL Syringe IVFLUSH PRN ×2 (08:15)
[2017-02-28] MEDS: Potassium Chloride 20 mEq SR Tablet PO SCH ×2 (08:56→18:11)
--- NOTE | 2017-02-28 09:12 | PROG NOTE ---
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 INTERVAL HISTORY: The patient reports that over the weekend she has continued to do very poorly. She states that her pain has not been adequately controlled. She continues to have pain in her muscles, joints, especially her chest when she takes a deep breath. She reports that after discussions with the hospitalist her pain medicine was not adequate and for that reason, she crashed oral pain meds and injected them into her central line in the neck. This was both seen by nurses and readily confirmed by the patient this morning, who stated that she had no recourse, but to chew on her pain meds and then inject them into her central line. This likely explains her recent bump in white count and procalcitonin. Major improvements over the weekend however have been the patient has been consistently able to stay off vasopressor agents and her renal function has continued to improve. She has now been moved from the ICU to the Progressive Care Unit and seems from a clinical point of view to be more stable even as she continues to complain bitterly about muscle pain, joint pain, pleuritic chest pain, right upper quadrant pain, and nausea. PHYSICAL EXAMINATION: Reveals an afebrile young woman, temp 37.7. She was last febrile yesterday morning, but on the evening of February 26 her temperature spiked to 39 degrees. Right now, 37.7, pulse 107, respiratory rate 20, blood pressure 105/75. She is saturating well on room air. The patient is awake, alert, appears depressed and has many, many complaints. Head is without trauma. Eyes without conjunctivitis. Oral cavity without change. Lungs with scattered crackles as before. Cardiac tones regular rate and rhythm with no gallop heard. Abdomen with some [id number] right upper quadrant pain, which seems to be new no skin rash noted. LABORATORIES: Include white blood count down to 12,000 with normal diff. Creatinine 1.89 which is the best of this hospital stay. LFTs notable for an AST of 61, which is actually bumped up a bit. ALT is normal at 30, alk phos only 48. LDH 390. Procalcitonin has been up and down which must in retrospect be due to this recent drug injection. On February 25 her procalcitonin had fallen to 2.8 which was a dramatic fall from 64 when she was admitted. It then abruptly jumped on the to 23 and has now dropped back to 9.4, all of which I think is almost impossible to interpret given her ongoing drug injections of nonsterile solutions. Micro includes negative blood cultures now from February 23 as well as February 25. These were the first negative blood cultures since admission and a major sign of improvement a chest x-ray on the showed cavitating septic emboli and I did review the film. IMPRESSION: The patient finally seems to have turned the corner in that she is off vasopressor agents. Consistently, has a declining white count, as well as improving renal function, and her fevers are subsiding most importantly is the fact her blood cultures are now negative for almost five days. Against this backdrop of gradual improvement is the rather dramatic discovery that she has been injecting oral pain meds, which she has chewed and then injected into her central line. 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 RECOMMENDATIONS: 1. The patient is cleared for a PICC line and removal of the central line in her neck at this point. 2. Will stop the daptomycin as of and continue with nafcillin as our sole IV antibiotic with an intention of continuing the nafcillin through April 04. 3. This patient is not a candidate for any form of home IV therapy for obvious reasons, and we must anticipate that she will be an inpatient here or at some other facility through April 04. 4. Will continue to follow labs closely with CBC and complete metabolic panel to be done at least three times per week. 5. Note that I will be out of town starting about midday tomorrow, March 01, and return to work Tuesday, March 08. During that time I can be reached by telephone about this or any other patient, [place]. 6. I do not plan on seeing the patient tomorrow morning, but I can see here if called tomorrow before I depart. Given new central line, can defer PICC for now MTDD
--- NOTE | 2017-02-28 09:16 | PCM.PNNEPH ---
ERI XAVIER DO 02/28/17 0916: Subjective Date of Service Feb 28, 2017 Subjective Pt still complains of pleuritic type chest pain, which increases when she coughs. Her cultures continued to return as negative. Overall she states she still does not feel any better, over the weekend she attempted to crush her Roxicodone and inject this through her central line which then became occluded requiring replacement. She is also disconnected her central line resulting in extensive bleeding and requiring blood transfusion. She currently has a left IJ in place. White count on percussive tone and continues to trend down, creatinine also continued to its downward trend 1.9 today from 8 on admit. Urinary output approximately 1 L in the last 24 hours. LDH elevated, platelets currently 296 from 20 on admit. She does state a new onset of abdominal pain is located primarily in her right upper quadrant. Exam Vital Signs Vital Sign - Last Date Time Temp Pulse Resp B/P Pulse Ox O2 Delivery O2 Flow Rate FiO2 02/28/17 08:59 104 18 99 Room Air 02/28/17 07:41 37.7 105/75 02/24/17 00:15 4.00 Intake and Output 02/27/17 02/27/17 02/28/17 Cumulative From/Thru 15:00 23:00 07:00 02/16/17 23:36 - 02/28/17 06:01 Intake Total 2100 ml 400 ml 71894 ml Output Total 1075 ml 1800 ml 21758 ml Balance 1025 ml -1400 ml 01991 ml Intake Oral 1030 ml 400 ml 17675 ml IV Total 1070 ml 79693 ml Tube Feeding 400 ml Platelets 490 ml Output Urine Total 725 ml 38434 ml Stool Total 800 ml Urine/Stool Mix 350 ml 1800 ml 2150 ml # Voids 4 # Bowel Movements 1 14 Exam General: Awake and alert sitting up in hospital bed appropriately interactive HEENT: Normocephalic, atraumatic. External ears without defect. Pupils equal, round, and reactive to light and accommodation. moist mucosa. Neck: Supple with full range of motion. Cardiovascular: Regular rate and rhythm. Soft ejection murmur heard. Pulmonary: Clear to auscultation posterior lung sky, good air movement no use of accessory muscles Abdomen: Bowel tones present. Tender to palpation right upper quadrant, positive rebound tenderness Extremities: No clubbing, cyanosis, mild lower extremity edema Skin: Normal temperature, turgor, and texture Neurological: Cranial nerves grossly intact. Psychiatric: Normal mood and affect. Lab and Diagnostics Result Diagram: 02/28/17 0440 02/28/17 0415 X-Rays, CTs and MRIs . X-RAY CHEST ONE VIEW, PORTABLE IMPRESSION: Diffuse bilateral patchy air space opacities suspicious for pneumonia. Dictated by: Delon Pelayo RRMaryjane Interpreted: Jose Enrique York MD on 02/17/2017 X-RAY CHEST ONE VIEW, PORTABLE IMPRESSION: 1. Right internal jugular central venous catheter is in expected position. No pneumothorax. 2. Bilateral septic emboli as before. Dictated by: Lance Dan M.D. on 02/17/2017 CT CHEST, ABDOMEN AND PELVIS WITHOUT CONTRAST IMPRESSION: 1. Multiple bilateral cavitary lesions in the lungs consistent with recurrent septic emboli. The differential for these imaging findings includes inflammatory processes as well as metastatic disease but these are less likely given patient's prior history of septic emboli. 2. Slight asymmetric appearance of the right kidney with minimal perinephric stranding. However, evaluation for pyelonephritis is limited in the absence of intravenous contrast. Recommend correlation clinically. There is no hydronephrosis. 3. Mildly prominent bladder wall thickness likely due to incomplete distention. Recommend correlation with urinalysis. Dictated by: Sulaiman Haines M.D. on 02/17/2017 CT BRAIN WITHOUT CONTRAST IMPRESSION: 1. No acute intracranial abnormality. Dictated by: Sulaiman Haines M.D. on 02/17/2017 Cardiac Echo Impressions . Echocardiogram Report Name: RAJANI ALSTON JStudy Mirza e: 02/17/2017 Height : 63 in Hospital Exam Location: [facility] Weight : 155 lb Gender: Female BSA: 1 .7 m2 : 1990 Age: 26 yrs BP: 10 1/64 mmHg Reason For Study: ENDOCARDITIS/SEPSIS Ordering Physician: Stevie Jean Performed By: Hanny Wisdom Referring Physician: CHAPARRO BULL Interpretation Summary Sinus tachycardia. Normal LV size and wall thickness. There is normal LV wall motion and systolic function. EF is 55-60%. There is severe RV dilation with normal wall motion. There is severe RA dilation. There is a 2.5x0.9 cm vegetation on the downstream side of the tricuspid valve leaflet. There is moderate tricuspid regurgittation. There is normal valve structure and function otherwise. Estimated PASP is 42 mm Hg assuming RA pressure of 3 mm Hg. Compared to prior study 08/04/2016 sinus tachycardia is new. RV dilation is new. Vegetation on the tricuspid valve is old. Tricuspid regurgitation is old Plan Impression Staphylococcal glomerulonephritis, improving - C3/C4 decrease indicating likely infectious glomerulonephritis - Continue antibiotics per ID - Repeat complement studies - Repeat urine studies Anemia - Most likely secondary to acute blood loss, iron studies came back low - Arancep given, IV iron given - 2 units PRBCs given with improvement - Repeat Arancep 60 MCG subcutaneous weekly hold if hemoglobin greater than 10.5 Severe acute kidney injury - Likely secondary to sepsis and hypotension. - Creatinine initially greater than 8 and now reduced to 1.9 - Continues to have good urinary output - Avoid nephrotoxic agents. Adal Garcia MD 03/01/17 0746: Exam Lab and Diagnostics Result Diagram: 02/28/17 0440 02/28/17 0415 Plan Impression Patient was seen and examined. Case discussed with Dr. Xavier. Agree with assessment and plan as above. Will sign off, please do not hesitate to call with any questions or concerns. Thank you for the consultation. MD JEFRY Rosa GILES A DO Feb 28, 2017 09:16 Adal Garcia MD Mar 01, 2017 07:46
[2017-02-28] MEDS: SODIUM CHLORIDE 0.9% IV SCH (10:55)
[2017-02-28] MEDS: DAPTOmycin Inj 750 MG in 0.9% Sodium Chloride 50 ML IV SCH (10:55)
[2017-02-28] MEDS: NAFCILLIN IV SCH (10:55)
--- NOTE | 2017-02-28 11:02 | NUR ---
[facility] [place] SWING BED FOLLOW UP: Called and spoke with Gilma she was in the middle of another call and needed to call me back. Awaiting call back for update. Updated CONTRACTING OFFICER
--- NOTE | 2017-02-28 13:24 | PCM.PNMED ---
Subjective Date of Service Feb 28, 2017 Subjective Patient continues to improve, although she reports feeling any different. Her blood cultures were negative for 5 days now, and is not having significant fever since yesterday morning. Overall she still complains of abdominal and chest pain however diffuse nature related to her coughing. This case was discussed with Dr. Lee. IV therapy prefers not to place PICC line today as the central line is only 2 days old. Exam Vital Signs Vital Sign - Last Date Time Temp Pulse Resp B/P Pulse Ox O2 Delivery O2 Flow Rate FiO2 02/28/17 12:29 37.7 112 38 112/80 95 Room Air 02/24/17 00:15 4.00 Intake and Output 02/27/17 02/27/17 02/28/17 Cumulative From/Thru 15:00 23:00 07:00 02/16/17 23:36 - 02/28/17 06:01 Intake Total 2100 ml 400 ml 68864 ml Output Total 1075 ml 1800 ml 09716 ml Balance 1025 ml -1400 ml 61452 ml Intake Oral 1030 ml 400 ml 94237 ml IV Total 1070 ml 69219 ml Tube Feeding 400 ml Platelets 490 ml Output Urine Total 725 ml 12296 ml Stool Total 800 ml Urine/Stool Mix 350 ml 1800 ml 2150 ml # Voids 4 # Bowel Movements 1 14 Exam General: Still appears mildly toxic but improved Cardio: Regular rate and rhythm; 2-3/6 systolic murmur ; chest pain on palpation around the lower ribs Respiratory: CTA bilaterally, no wheezes, no crackles Abdomen: Soft, positive bowel sounds, mildly tender Extremities: No edema, sensation intact Psych: Attitude is improved today IVs and Medications Medications Reviewed: Medications were reviewed in detail Lab and Diagnostics Result Diagram: 02/28/17 0440 02/28/17 0415 X-Rays, CTs and MRIs . X-RAY CHEST ONE VIEW, PORTABLE IMPRESSION: Diffuse bilateral patchy air space opacities suspicious for pneumonia. Dictated by: Delon LEYVA Interpreted: Jose Enrique York MD on 02/17/2017 X-RAY CHEST ONE VIEW, PORTABLE IMPRESSION: 1. Right internal jugular central venous catheter is in expected position. No pneumothorax. 2. Bilateral septic emboli as before. Dictated by: Lance Dan M.D. on 02/17/2017 CT CHEST, ABDOMEN AND PELVIS WITHOUT CONTRAST IMPRESSION: 1. Multiple bilateral cavitary lesions in the lungs consistent with recurrent septic emboli. The differential for these imaging findings includes inflammatory processes as well as metastatic disease but these are less likely given patient's prior history of septic emboli. 2. Slight asymmetric appearance of the right kidney with minimal perinephric stranding. However, evaluation for pyelonephritis is limited in the absence of intravenous contrast. Recommend correlation clinically. There is no hydronephrosis. 3. Mildly prominent bladder wall thickness likely due to incomplete distention. Recommend correlation with urinalysis. Dictated by: Sulaiman Haines M.D. on 02/17/2017 CT BRAIN WITHOUT CONTRAST IMPRESSION: 1. No acute intracranial abnormality. Dictated by: Sulaiman Haines M.D. on 02/17/2017 Cardiac Echo Impressions . Echocardiogram Report Name: RAJANI ALSTON Mirza e: 02/17/2017 Height : 63 in Hospital [facility] Weight : 155 lb Gender: Female BSA: 1 .7 m2 : 1990 Age: 26 yrs BP: 10 1/64 mmHg Reason For Study: ENDOCARDITIS/SEPSIS Ordering Physician: Stevie Jean Performed By: Hanny Wisdom Referring Physician: CHAPARRO BULL Interpretation Summary Sinus tachycardia. Normal LV size and wall thickness. There is normal LV wall motion and systolic function. EF is 55-60%. There is severe RV dilation with normal wall motion. There is severe RA dilation. There is a 2.5x0.9 cm vegetation on the downstream side of the tricuspid valve leaflet. There is moderate tricuspid regurgittation. There is normal valve structure and function otherwise. Estimated PASP is 42 mm Hg assuming RA pressure of 3 mm Hg. Compared to prior study 08/04/2016 sinus tachycardia is new. RV dilation is new. Vegetation on the tricuspid valve is old. Tricuspid regurgitation is old Assessment & Plan Pt is a 26 y/o female w/ a hx of tricuspid MSSA endocarditis, ongoing IVDA ( meth and heroin), septic PE, pneumonia, presenting to the ED c/o dyspnea. Acute sepsis with septic shock. Present on admission; ongoing. - Pt presented with temp 37.9, HR 145, BP 86/52, WBC 15.4 with left shift, lactic of 2.6. MSSA endocarditis with secondary bacteremia with persistently positive blood cultures at 5 days; CT positive for mycotic pulmonary embolism. Bcx negative since 02/21. Procal is down trending - Off norepinephrine for the time being; maintain mean arterial pressure of 65 mmHg - Discontinue daptomycin - Continue nafcillin through April 04 - Continue to follow blood cultures and CBC - Continue to central line; on or Tuesday will consider PICC Severe acute kidney injury. Present on admission. Improving - Likely secondary to sepsis and hypotension. C3/C4 decrease indicating likely infectious glomerulonephritis - Creatinine initially greater than 8; currently 1.89 - Nephrology consultation and Dr. aPtel currently seeing the patient - Avoid nephrotoxic agents. Opioid dependence, chronic. The patient is tearful and frustrated that she is not receiving higher doses of opioid analgesics. Patient is demonstrating opioid seeking behaviors. She does not have an outpatient prescription for opioid analgesics. She is receiving oxycodone 5 mg every 4 hours when necessary. Nurses have observed the patient to pocket her oxycodone and administer them IV to herself. She was counseled regarding unacceptability this behavior. - Patient was counseled that increasing her opioid dependence with inpatient opioid medications, especially parenteral, of adverse long-term consequences for her health. - Current pain complaints consist of a chronic musculoskeletal complaints for which opioids are not indicated, and sepsis related rigors and musculoskeletal complaints which may be managed with antipyretics and nonsteroidal analgesics. - She should not receive additional opioids - Ativan 1 mg every 4 hours and will start decreasing Roxicodone - Patient remains on gabapentin 600 mg twice a day; home doses 3 times a day History of seizure disorder. POA and stable. -Patient states she is not on Lamictal at home -Titrating down Lamictal -Continuing topiramate, will start at 100 mg twice a day Resolving, stable and or chronic problems: Persistent Diarrhea; present on admission; resolving -Patient continues to have diarrhea which was present when she initially presented and then decrease with loperamide -Could be a sign of opiate withdrawal although she has been on Roxicodone -We will try lomotil today -Previous C. difficile was negative; we will send additional sample and check again. 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 Present on admission. Ongoing - CT chest showed septic pulmonary emboli bilaterally - Echocardiogram demonstrates a tricuspid vegetation, moderate tricuspid regurg , right sided heart failure - Dr. Patel and Dr. Riddle indicate that the patient is not a candidate is not a candidate at the moment and will require 6 weeks of antibiotics in 6 months off heroin -Patient's attempted injection of Roxicodone into her central line that raises the question whether she will meet surgical criteria for valve replacement. Acute blood loss anemia; present on admission; resolving -Patient's hemoglobin this morning was 5.9 due to her disconnecting her central line to go the bathroom, with significant blood loss back through the line -2 units PRBCs ordered stat Left shoulder pain, acute on chronic. Present on admission. Resolving - Pt has history of septic joint of the left sternoclavicular joint; has been seen by orthopedics during the stay - Aspirate cell count, Gram stain, culture ordered 02/22/17 - Physical therapy to work with shoulder Hypokalemia, not present on admission. Matthew value of 2.7. -Supplement potassium orally Right ventricular heart failure with anasarca; present on admission; ongoing -Severe right ventricular dilation and tricuspid regurg, with pulmonary hypertension likely secondary to pulmonary embolisms -Cardiology was consulted Septic Encephalopathy; not present on admission; resolved. Patient had hallucinations, got out of bed and stooled on the floor. Likely related to either sepsis or combination of medications including morphine, Vistaril, and Ativan. - Stopped Vistaril except at bedtime, stop morphine, decrease Ativan - Resolved with reduction in pain medication - Currently on Seroquel which she apparently takes at home as well per her report Severe thrombocytopenia, acute. Present on admission. Resolved - Platelets reached as low as 31, due to sepsis Anion gap metabolic acidosis and lactic acidosis, acute. Present on admission, resolving. Secondary to lactic acidosis and PRISCILA. Gap 24. pH 7.26, pCO2 32.6, pO2 110, bicarb 14.2. - Resolved Hypovolemic Hyponatremia, acute. Present on admission. Resolved - Na 126 on admission. Pt receiving NS @ 150 ml/hr - Resolved History of IV drug abuse. POA and Active with heroin during the week prior to arrival. - Hepatitis C negative - HIV negative History of tobacco use. By mouth and active - Nicotine patch ordered Disposition: Antibiotics to continue through April 04. Patient will remain in-house for transfer to possible [facility] [place] pending social work. GI Prophylaxis: H2 susan VTE Prophylaxis: Other (Pt has thrombocytopenia - no DVT prophylaxis for now.) VTE Mechanical Devices: Intermittant Pneumatic CD Resuscitation Status: CPR: Attempt Resuscitation Cristian Noguera DO Feb 28, 2017 13:24
--- NOTE | 2017-02-28 13:56 | NUR ---
Fever and diarrhea Temp 38.5. Dr. Mcdaniels was notified. No new orders. Pt. reported persistent diarrhea despite PRN Imodium. Will try PRN Lomotil as recommended by doctor. Monitor pt. behavior. Pt. showed no attempt to pocket pills in her mouth.
[2017-02-28] MEDS: DiphenOXYlate-Atropine 2.5 mg-0.025 mg Tablet PO PRN (16:32)
[2017-02-28 23:23] LABS: APPEARANCE,URINE CLEAR (CLEAR,HAZY); COLOR,URINE YELLOW (YELLOW); OCCULT BLOOD,URINE LARGE (NEGATIVE); UROBILINOGEN,URINE NORMAL (NORMAL)
[2017-03-01] VITALS (8 sets, daily range): BP systolic 99–115; BP diastolic 62–78; PULSE 85–116; RESP 16–21; O2SAT 95–97
[2017-03-01] MEDS: Dextromethorphan Polistirix 6 mg/mL 90 mL Suspension PO PRN ×3 (05:47→14:44)
[2017-03-01 06:30] LABS: BASOPHILS % (AUTO) 0.9 % (0-3); EOSINOPHILS % (AUTO) 0.5 % (0-5); MONOCYTES % (AUTO) 7.7 % (4-12); Mean Corpuscular Hemoglobin 30.7 pg (27.0-35.0); NEUTROPHILS % (AUTO) 68.9 % (40-74); Platelet Count 316 bil/L (150-400)
--- NOTE | 2017-03-01 06:32 | NUR ---
FEVER/REST, PAIN MANAGEMENT A/O, States needed clearly. Vitals indicated low grade fever continues (last recorded 100 f'). Rest for extended period of time with eyes closed throughout shift. Was able to manage pain for longer periods Addendum: 03/01/17 at 0640 by CHEYENNE GODFREY RN NOTE CONT: through this shift. States pain score 8/10 consistently, no distress observed with exception of persistent cough. Tele: SR/Tachycardia 110-115. Requesting shower today, report given to juliana SESAY
[2017-03-01] MEDS: Potassium Chloride 20 mEq SR Tablet PO SCH ×2 (10:15→16:45)
--- NOTE | 2017-03-01 11:22 | NUR ---
NUTRITION FOLLOW UP: ASSESS: 26 YO F admitted to CCU for sepsis, PRISCILA with infectious glomerulonephritis, and endocarditis. Pt has history of IVD abuse. Pt with fair PO intake. PRISCILA improving per notes. PMHX: Endocarditis, IVDA (meth and heroine), PE, PNA LABS: Reviewed.Cr 1.87, Glu 102, Ca 8.0, AST 65, Alb 2.8 MEDS: Reviewed. GI: 3 BM (02/28), diarrhea noted. SKIN: no major issues CURRENT WT: 78.0 kg, BMI 30.5 kg/m2, Admit wt: 70.3kg, IBW: 52.3 kg DIET: General, PO intake refusal-50% ESTIMATED NEEDS: PRISCILA Calories: 8036-5043 kcal/day (25-30 kcal/kg BW) Protein: 55-70 g/day (0.8-1.0 g/kg BW) NUTRITION DIAGNOSIS: 1.) Inadequate oral intake related to chronic disease as evidence by reported weakness prior to admit and history of endocarditis and IVD use.---IMPROVED. NUTRITION INTERVENTION: 1.) Continue current diet and supplement/snacks as ordered. 2.) On 02/[address] with pt about foods that she likes/dislikes and bland foods that will not exacerbate her nausea. Pt does not like Magic Cups or Mighty shakes because they are too chalky/she says she can taste the added protein. She loves milk so will send 2 cartons of whole milk on all trays. She likes estonian yogurt (which the hospital does not have) so encouraged pt to call her mom and have her mom bring in the yogurt that she likes and any other food that the pt prefers. She agreed to try Vanilla Ensure on L tray. Discussed how she can dilute the Ensure with milk so that it isn't so chalky. Discussed adding extra butter and gravy to foods to sneak in more kcal. Discussed eating smaller, more frequent meals when appetite is down. Encourage pt to try to eat at least 50% of all meals. Pt expressed understanding and stated that she would try. 3.) If diarrhea persists, consider addition of probiotics. MONITOR/EVALUATE: PO, wt, GI, labs, POC, nutrition status. Follow per moderate nutrition risk guidelines
[2017-03-01] MEDS: SODIUM CHLORIDE 0.9% IV SCH (12:45)
[2017-03-01] MEDS: NAFCILLIN IV SCH (12:45)
--- NOTE | 2017-03-01 15:17 | NUR ---
Social Work: Continued Discharge Planning/Multidisciplinary Rounds D: Pt discussed in multidisciplinary rounds. Pt is not yet medically stable for discharge and will require at least 5-6 weeks of IV ABX. Pt is improving and doing much better than last week. She has been downgraded to PCC status and is anticipated to be stable for a transfer to [facility] [place] if a Swing Bed is available. [facility] has placed a referral and is working on this option. As the patient has a significant substance use history, provider has requested a CD assessment for the patient. This was completed on 02/10. At this time the patient was interested in a bedside assessment from [facility] to inquire about treatment options. This has not yet been completed due to pt's clinical status. The pt is more stable now and appropriate for bedside. LEATHER DRIER met with the patient at bedside to check-in. She is in good spirits. LEATHER DRIER informed her of the referral to [facility] for a swing bed placement. She agrees with this plan if she is accepted. LEATHER DRIER also inquired whether she was still interested in a bedside assessment to explore her treatment options after her course of IV ABX. She states that she still wishes to do this and is committed to trying to get clean. Pt has signed an OZZY for [facility] and a referral was placed to Carmen Silva with [facility]. She will see the patient today to start the bedside assessment and explore options. A: Pt who is I at baseline with a history of polysubstance abuse. P: Evolving; Pt to either transfer to [facility] or stay at [facility] to finish her duration of IV ABX. CDP will see the patient to discuss inpatient treatment options. BINA Kurtz
--- NOTE | 2017-03-01 15:30 | NUR ---
ANTIBIOTIC/PAIN/PLAN Patient receiving Nafcillin for endocarditis, last blood cultures negative. Plan to continue antibiotics until 04/04, looking for placement outside hospital but patient has Hx of IVD. Pain controlled with 5mg Oxycodone Q4, request made to change to liquid form and extend time to Q6 and reduce anxiety medications. Patient has cough and receiving cough medication q4, denies chest pain, and shortness of breath, but endorses nausea (no emesis). [facility] staff Carmen Silva in wants to know if patient eligible for cardiac surgery if on methadone. Will page hospitalist.
--- NOTE | 2017-03-01 16:04 | PCM.PNMED ---
Subjective Date of Service Mar 01, 2017 Subjective Patient did well overnight. She appears to be less toxic today and appetite is returning. She states she is still having diffuse pain but this is improved as well. Her left shoulder still hurts but is also improving. Nursing has asked that we switch her oxycodone to liquid. No PICC was placed as the central line should be good for the 6 weeks. Exam Vital Signs Vital Sign - Last Date Time Temp Pulse Resp B/P Pulse Ox O2 Delivery O2 Flow Rate FiO2 03/01/17 11:58 38.3 111 21 99/65 96 Room Air 02/24/17 00:15 4.00 Intake and Output 02/28/17 02/28/17 03/01/17 Cumulative From/Thru 15:00 23:00 07:00 02/16/17 23:36 - 03/01/17 06:04 Intake Total 1692 ml 1904 ml 1664 ml 63158 ml Output Total 4000 ml 3100 ml 51916 ml Balance 1692 ml -2096 ml -1436 ml 35168 ml Intake Oral 1436 ml 1664 ml 39682 ml IV Total 1692 ml 468 ml 04607 ml Tube Feeding 400 ml Platelets 490 ml Output Urine Total 4000 ml 600 ml 55814 ml Stool Total 800 ml Urine/Stool Mix 2500 ml 4650 ml # Voids 4 # Bowel Movements 3 17 Exam General: Overall appearance is much improved Cardio: Regular rate and rhythm; 2-3/6 systolic murmur Respiratory: CTA bilaterally, no wheezes, no crackles Abdomen: Soft, positive bowel sounds, still mildly tender Extremities: No edema, sensation intact Psych: Improved affect IVs and Medications Medications Reviewed: Medications were reviewed in detail Lab and Diagnostics Result Diagram: 03/01/17 0610 03/01/17 0610 X-Rays, CTs and MRIs . X-RAY CHEST ONE VIEW, PORTABLE IMPRESSION: Diffuse bilateral patchy air space opacities suspicious for pneumonia. Dictated by: Delon LEYAV Interpreted: Jose Enrique York MD on 02/17/2017 X-RAY CHEST ONE VIEW, PORTABLE IMPRESSION: 1. Right internal jugular central venous catheter is in expected position. No pneumothorax. 2. Bilateral septic emboli as before. Dictated by: Lance Dan M.D. on 02/17/2017 CT CHEST, ABDOMEN AND PELVIS WITHOUT CONTRAST IMPRESSION: 1. Multiple bilateral cavitary lesions in the lungs consistent with recurrent septic emboli. The differential for these imaging findings includes inflammatory processes as well as metastatic disease but these are less likely given patient's prior history of septic emboli. 2. Slight asymmetric appearance of the right kidney with minimal perinephric stranding. However, evaluation for pyelonephritis is limited in the absence of intravenous contrast. Recommend correlation clinically. There is no hydronephrosis. 3. Mildly prominent bladder wall thickness likely due to incomplete distention. Recommend correlation with urinalysis. Dictated by: Sulaiman Haines M.D. on 02/17/2017 CT BRAIN WITHOUT CONTRAST IMPRESSION: 1. No acute intracranial abnormality. Dictated by: Sulaiman Haines M.D. on 02/17/2017 Cardiac Echo Impressions . Echocardiogram Report Name: RAJANI ALSTON Mirza e: 02/17/2017 Height : 63 in Hospital Exam Location: [facility] Weight : 155 lb Gender: Female BSA: 1 .7 m2 : 1990 Age: 26 yrs BP: 10 1/64 mmHg Reason For Study: ENDOCARDITIS/SEPSIS Ordering Physician: Stevie Jean Performed By: Hanny Wisdom Referring Physician: CHAPARRO BULL Interpretation Summary Sinus tachycardia. Normal LV size and wall thickness. There is normal LV wall motion and systolic function. EF is 55-60%. There is severe RV dilation with normal wall motion. There is severe RA dilation. There is a 2.5x0.9 cm vegetation on the downstream side of the tricuspid valve leaflet. There is moderate tricuspid regurgittation. There is normal valve structure and function otherwise. Estimated PASP is 42 mm Hg assuming RA pressure of 3 mm Hg. Compared to prior study 08/04/2016 sinus tachycardia is new. RV dilation is new. Vegetation on the tricuspid valve is old. Tricuspid regurgitation is old Assessment & Plan Pt is a 26 y/o female w/ a hx of tricuspid MSSA endocarditis, ongoing IVDA ( meth and heroin), septic PE, pneumonia, presenting to the ED c/o dyspnea. Acute endocarditis; present on admission; ongoing -Sepsis and shock to both resolved -White count is trending down as well as the procalcitonin -Physical signs and symptoms appear to be diminishing as well -Daptomycin was discontinued by Dr. Lee yesterday -Continue nafcillin through April 04 -Patient will remain here in the hospital until completion due to high risk of relapse Severe acute kidney injury. Present on admission. Resolving - Likely secondary to sepsis and hypotension. C3/C4 decrease indicating likely infectious glomerulonephritis - Creatinine initially greater than 8; currently 1.89 - Nephrology consultation and Dr. Patel currently seeing the patient - Avoid nephrotoxic agents. Opioid dependence, chronic. The patient is tearful and frustrated that she is not receiving higher doses of opioid analgesics. Patient is demonstrating opioid seeking behaviors. She does not have an outpatient prescription for opioid analgesics. She is receiving oxycodone 5 mg every 4 hours when necessary. Nurses have observed the patient to pocket her oxycodone and administer them IV to herself. She was counseled regarding unacceptability this behavior. - Patient was counseled that increasing her opioid dependence with inpatient opioid medications, especially parenteral, of adverse long-term consequences for her health. - Current pain complaints consist of a chronic musculoskeletal complaints for which opioids are not indicated, and sepsis related rigors and musculoskeletal complaints which may be managed with antipyretics and nonsteroidal analgesics. - She should not receive additional opioids - Ativan 1 mg every 4 hours and will start decreasing Roxicodone - Patient remains on gabapentin 600 mg twice a day; home doses 3 times a day History of seizure disorder. POA and stable. -Patient states she is not on Lamictal at home -Titrating down Lamictal -Continuing topiramate, will start at 100 mg twice a day -Will decrease Lamictal tomorrow Acute blood loss anemia; present on admission; resolving -Patient's hemoglobin this morning was 5.9 due to her disconnecting her central line to go the bathroom, with significant blood loss back through the line -2 units PRBCs ordered stat and given on -We will continue to monitor Resolving, stable and or chronic problems: Acute sepsis with septic shock. Present on admission; resolved - Pt presented with temp 37.9, HR 145, BP 86/52, WBC 15.4 with left shift, lactic of 2.6. MSSA endocarditis with secondary bacteremia with persistently positive blood cultures at 5 days; CT positive for mycotic pulmonary embolism. Bcx negative since 02/21. Procal is down trending - Off norepinephrine for the time being; maintain mean arterial pressure of 65 mmHg - Discontinue daptomycin - Continue nafcillin through April 04 - Continue to follow blood cultures and CBC - Continue to central line; on or Tuesday will consider PICC Persistent Diarrhea; present on admission; resolving -Patient continues to have diarrhea which was present when she initially presented and then decrease with loperamide -Could be a sign of opiate withdrawal although she has been on Roxicodone -We will try lomotil today -Previous C. difficile was negative; we will send additional sample and check again. 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 Present on admission. Ongoing - CT chest showed septic pulmonary emboli bilaterally - Echocardiogram demonstrates a tricuspid vegetation, moderate tricuspid regurg , right sided heart failure - Dr. Patel and Dr. Riddle indicate that the patient is not a candidate is not a candidate at the moment and will require 6 weeks of antibiotics in 6 months off heroin -Patient's attempted injection of Roxicodone into her central line that raises the question whether she will meet surgical criteria for valve replacement. Acute blood loss anemia; present on admission; resolving -Patient's hemoglobin this morning was 5.9 due to her disconnecting her central line to go the bathroom, with significant blood loss back through the line -2 units PRBCs ordered stat Left shoulder pain, acute on chronic. Present on admission. Resolving - Pt has history of septic joint of the left sternoclavicular joint; has been seen by orthopedics during the stay - Aspirate cell count, Gram stain, culture ordered 02/22/17 - Physical therapy to work with shoulder Hypokalemia, not present on admission. Matthew value of 2.7. -Supplement potassium orally Right ventricular heart failure with anasarca; present on admission; ongoing -Severe right ventricular dilation and tricuspid regurg, with pulmonary hypertension likely secondary to pulmonary embolisms -Cardiology was consulted Septic Encephalopathy; not present on admission; resolved. Patient had hallucinations, got out of bed and stooled on the floor. Likely related to either sepsis or combination of medications including morphine, Vistaril, and Ativan. - Stopped Vistaril except at bedtime, stop morphine, decrease Ativan - Resolved with reduction in pain medication - Currently on Seroquel which she apparently takes at home as well per her report Severe thrombocytopenia, acute. Present on admission. Resolved - Platelets reached as low as 31, due to sepsis Anion gap metabolic acidosis and lactic acidosis, acute. Present on admission, resolving. Secondary to lactic acidosis and PRISCILA. Gap 24. pH 7.26, pCO2 32.6, pO2 110, bicarb 14.2. - Resolved Hypovolemic Hyponatremia, acute. Present on admission. Resolved - Na 126 on admission. Pt receiving NS @ 150 ml/hr - Resolved History of IV drug abuse. POA and Active with heroin during the week prior to arrival. - Hepatitis C negative - HIV negative History of tobacco use. By mouth and active - Nicotine patch ordered Disposition: Antibiotics to continue through April 04. Patient will remain in-house for transfer to possible [facility] pending social work. GI Prophylaxis: H2 susan VTE Prophylaxis: Other (Pt has thrombocytopenia - no DVT prophylaxis for now.) VTE Mechanical Devices: Intermittant Pneumatic CD Resuscitation Status: CPR: Attempt Resuscitation Time spent 35 minutes Attending Statement I interviewed and examined the patient on rounds today. Improvement in infection and inflammatory parameters. I agree with the assessment and plan as stated above. Cristian Noguera DO Mar 01, 2017 16:04 Hugo Mcdaniels MD Mar 01, 2017 18:47
[2017-03-01] MEDS: Ondansetron 2 mg/mL 2 mL Inj IVPUSH PRN (16:47)
[2017-03-01 18:03] LABS: APPEARANCE,URINE CLEAR (CLEAR,HAZY); COLOR,URINE STRAW (YELLOW); OCCULT BLOOD,URINE LARGE (NEGATIVE); UROBILINOGEN,URINE NORMAL (NORMAL)
[2017-03-01] MEDS: oxyCODONE 1 mg/mL 5 mL Liquid PO PRN (18:40)
[2017-03-01] MEDS: lamoTRIgine 100 mg Tablet PO SCH (21:07)
[2017-03-02] VITALS (7 sets, daily range): BP systolic 102–119; BP diastolic 70–82; PULSE 75–107; RESP 16–20; O2SAT 94–99
[2017-03-02] MEDS: oxyCODONE 1 mg/mL 5 mL Liquid PO PRN ×4 (00:52→21:15)
[2017-03-02] MEDS: Dextromethorphan Polistirix 6 mg/mL 90 mL Suspension PO PRN ×3 (01:08→14:43)
--- NOTE | 2017-03-02 04:00 | NUR ---
transfer Pt rec'd to room 3006 from 2001 ([facility]) around 03:30. Pt A&Ox3. reoriented to the room and plan of care; she verbalized understanding. independent in the room; gait steady. belongings locked up in the closet. pt just wants to sleep. Temp went down to 37.4
[2017-03-02 04:07] LABS: BASOPHILS % (AUTO) 1.1 % (0-3); EOSINOPHILS % (AUTO) 1.8 % (0-5); MONOCYTES % (AUTO) 8.7 % (4-12); Mean Corpuscular Hemoglobin 29.9 pg (27.0-35.0); Mean Corpuscular Volume 92.9 fL (81-100); NEUTROPHILS % (AUTO) 61.6 % (40-74); Platelet Count 319 bil/L (150-400)
[2017-03-02 05:02] LABS: Magnesium 1.6 mg/dL (1.6-2.6); Phosphorus 4.8 mg/dL (2.5-4.9)
[2017-03-02] MEDS: Potassium Chloride 20 mEq SR Tablet PO SCH ×2 (08:39→16:49)
[2017-03-02] MEDS: lamoTRIgine 100 mg Tablet PO SCH ×2 (08:40→21:08)
[2017-03-02] MEDS: SODIUM CHLORIDE 0.9% IV SCH (10:33)
[2017-03-02] MEDS: DiphenOXYlate-Atropine 2.5 mg-0.025 mg Tablet PO PRN (10:33)
[2017-03-02] MEDS: NAFCILLIN IV SCH (10:33)
[2017-03-02] MEDS: Ondansetron 2 mg/mL 2 mL Inj IVPUSH PRN (10:54)
--- NOTE | 2017-03-02 11:19 | NUR ---
Discharged from PT Pt has refused to participate in skilled PT x 3 days in a row and is therefore discharged from PT service. Pt was witnessed up adlib in room utilizing IV Pole as support with no overt LOB or unsteadiness.
--- NOTE | 2017-03-02 15:20 | NUR ---
Fever Patient was febrile at 38.3 and shivering this morning. Patient was administered 650mg PO Tylenol and offered cool was cloth for forehead. Patient refused cool wash cloth. Patient fever was reassessed in an hour and temperature decreased to 37.5. Chills resolved 20 minutes after administration of Tylenol.
--- NOTE | 2017-03-02 17:21 | PCM.PNMED ---
Subjective Date of Service Mar 02, 2017 Subjective Resting ion bed. Overall doing better but am concerned about the persistent dily fevers. Procal much improved, WBC now normal, should pain better, persists with diarrhea but c. diff negative. Exam Vital Signs Vital Sign - Last Date Time Temp Pulse Resp B/P Pulse Ox O2 Delivery O2 Flow Rate FiO2 03/02/17 13:33 37.5 75 111/72 94 Room Air 03/02/17 09:09 16 03/01/17 16:32 4.00 Intake and Output 03/01/17 03/01/17 03/02/17 Cumulative From/Thru 15:00 23:00 07:00 02/16/17 23:36 - 03/02/17 00:20 Intake Total 2991 ml 14039 ml Output Total 2100 ml 05106 ml Balance 891 ml 71122 ml Intake Oral 2100 ml 70049 ml IV Total 891 ml 00161 ml Tube Feeding 400 ml Platelets 490 ml Output Urine Total 300 ml 19355 ml Stool Total 800 ml Urine/Stool Mix 1800 ml 6450 ml # Voids 4 # Bowel Movements 17 Exam Skin; warm and dry, no rash Eyes; sherri, eom intact HENT; adequate hydration, no lesions CV; no overt murmur, no edema or JVD Resp;course, no wheezing or rhonchi GI; soft non acute, non tender Neuro; cn 2-12 intact, no focal defects Lab and Diagnostics Result Diagram: 03/02/17 0350 03/02/17 0350 X-Rays, CTs and MRIs . X-RAY CHEST ONE VIEW, PORTABLE IMPRESSION: Diffuse bilateral patchy air space opacities suspicious for pneumonia. Dictated by: Delon Pelayo RR Interpreted: Jose Enrique York MD on 02/17/2017 X-RAY CHEST ONE VIEW, PORTABLE IMPRESSION: 1. Right internal jugular central venous catheter is in expected position. No pneumothorax. 2. Bilateral septic emboli as before. Dictated by: Lance Dan M.D. on 02/17/2017 CT CHEST, ABDOMEN AND PELVIS WITHOUT CONTRAST IMPRESSION: 1. Multiple bilateral cavitary lesions in the lungs consistent with recurrent septic emboli. The differential for these imaging findings includes inflammatory processes as well as metastatic disease but these are less likely given patient's prior history of septic emboli. 2. Slight asymmetric appearance of the right kidney with minimal perinephric stranding. However, evaluation for pyelonephritis is limited in the absence of intravenous contrast. Recommend correlation clinically. There is no hydronephrosis. 3. Mildly prominent bladder wall thickness likely due to incomplete distention. Recommend correlation with urinalysis. Dictated by: Sulaiman Haines M.D. on 02/17/2017 CT BRAIN WITHOUT CONTRAST IMPRESSION: 1. No acute intracranial abnormality. Dictated by: Sulaiman Haines M.D. on 02/17/2017 Cardiac Echo Impressions . Echocardiogram Report Name: RAJANI ALSTONtudeliza Mirza e: 02/17/2017 Height : 63 in Hospital Exam Location: [facility] Weight : 155 lb Gender: Female BSA: 1 .7 m2 : 1990 Age: 26 yrs BP: 10 1/64 mmHg Reason For Study: ENDOCARDITIS/SEPSIS Ordering Physician: Stevie Jean Performed By: Hanny Wisdom Referring Physician: CHAPARRO BULL Interpretation Summary Sinus tachycardia. Normal LV size and wall thickness. There is normal LV wall motion and systolic function. EF is 55-60%. There is severe RV dilation with normal wall motion. There is severe RA dilation. There is a 2.5x0.9 cm vegetation on the downstream side of the tricuspid valve leaflet. There is moderate tricuspid regurgittation. There is normal valve structure and function otherwise. Estimated PASP is 42 mm Hg assuming RA pressure of 3 mm Hg. Compared to prior study 08/04/2016 sinus tachycardia is new. RV dilation is new. Vegetation on the tricuspid valve is old. Tricuspid regurgitation is old Assessment & Plan Pt is a 26 y/o female w/ a hx of tricuspid MSSA endocarditis, ongoing IVDA ( meth and heroin), septic PE, pneumonia, presenting to the ED c/o dyspnea. Acute endocarditis; present on admission; ongoing -Sepsis and shock to both resolved -White count normal, procal trending down -Daptomycin was discontinued 02/28/17 -Continue nafcillin through April 04 -Patient will remain here in the hospital until completion due to high risk of relapse -concerned about persistent fever; will repeat Chest CT non contrast to reimage abscess in lungs etc Severe acute kidney injury. Present on admission. Resolving - Likely secondary to sepsis and hypotension and staphyloccocal glomerulonephritis. - C3/C4 decrease indicating likely infectious glomerulonephritis - Creatinine initially greater than 8; currently 1.71 - Nephrology consultation and Dr. Patel currently seeing the patient - Avoid nephrotoxic agents. Opioid dependence, poa, chronic. -The patient is tearful and frustrated that she is not receiving higher doses of opioid analgesics. Patient is demonstrating opioid seeking behaviors. She does not have an outpatient prescription for opioid analgesics. She is receiving oxycodone 5 mg every 4 hours when necessary. Nurses have observed the patient to pocket her oxycodone and administer them IV to herself. She was counseled regarding unacceptability this behavior. - Patient was counseled that increasing her opioid dependence with inpatient opioid medications, especially parenteral, of adverse long-term consequences for her health. - Current pain complaints consist of a chronic musculoskeletal complaints for which opioids are not indicated, and sepsis related rigors and musculoskeletal complaints which may be managed with antipyretics and nonsteroidal analgesics. - She should not receive additional opioids - Ativan 1 mg every 4 hours and will start decreasing Roxicodone - Patient remains on gabapentin 600 mg twice a day; home doses 3 times a day History of seizure disorder. POA and stable. -Patient states she is not on Lamictal at home -Titrating down Lamictal -Continuing topiramate, will start at 100 mg twice a day -Will decrease Lamictal tomorrow Acute blood loss anemia; present on admission; resolving -Patient's hemoglobin this morning was 5.9 due to her disconnecting her central line to go the bathroom, with significant blood loss back through the line -2 units PRBCs ordered stat and given on -We will continue to monitor Resolving, stable and or chronic problems: Acute sepsis with septic shock. Present on admission; resolved - Pt presented with temp 37.9, HR 145, BP 86/52, WBC 15.4 with left shift, lactic of 2.6. MSSA endocarditis with secondary bacteremia with persistently positive blood cultures at 5 days; CT positive for mycotic pulmonary embolism. Bcx negative since 02/21. Procal is down trending - Off norepinephrine for the time being; maintain mean arterial pressure of 65 mmHg - Discontinue daptomycin - Continue nafcillin through April 04 - Continue to follow blood cultures and CBC - Continue to central line; on or Tuesday will consider PICC Persistent Diarrhea; present on admission; resolving -Patient continues to have diarrhea which was present when she initially presented and then decrease with loperamide -Could be a sign of opiate withdrawal although she has been on Roxicodone -We will try lomotil today -Previous C. difficile was negative; we will send additional sample and check again. 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 Present on admission. Ongoing - CT chest showed septic pulmonary emboli bilaterally - Echocardiogram demonstrates a tricuspid vegetation, moderate tricuspid regurg , right sided heart failure - Dr. Patel and Dr. Riddle indicate that the patient is not a candidate is not a candidate at the moment and will require 6 weeks of antibiotics in 6 months off heroin -Patient's attempted injection of Roxicodone into her central line that raises the question whether she will meet surgical criteria for valve replacement. Acute blood loss anemia; present on admission; resolving -Patient's hemoglobin this morning was 5.9 due to her disconnecting her central line to go the bathroom, with significant blood loss back through the line -2 units PRBCs ordered stat Left shoulder pain, acute on chronic. Present on admission. Resolving - Pt has history of septic joint of the left sternoclavicular joint; has been seen by orthopedics during the stay - Aspirate cell count, Gram stain, culture ordered 02/22/17 - Physical therapy to work with shoulder Hypokalemia, not present on admission. Matthew value of 2.7. -Supplement potassium orally Right ventricular heart failure with anasarca; present on admission; ongoing -Severe right ventricular dilation and tricuspid regurg, with pulmonary hypertension likely secondary to pulmonary embolisms -Cardiology was consulted Septic Encephalopathy; not present on admission; resolved. Patient had hallucinations, got out of bed and stooled on the floor. Likely related to either sepsis or combination of medications including morphine, Vistaril, and Ativan. - Stopped Vistaril except at bedtime, stop morphine, decrease Ativan - Resolved with reduction in pain medication - Currently on Seroquel which she apparently takes at home as well per her report Severe thrombocytopenia, acute. Present on admission. Resolved - Platelets reached as low as 31, due to sepsis Anion gap metabolic acidosis and lactic acidosis, acute. Present on admission, resolving. Secondary to lactic acidosis and PRISCILA. Gap 24. pH 7.26, pCO2 32.6, pO2 110, bicarb 14.2. - Resolved Hypovolemic Hyponatremia, acute. Present on admission. Resolved - Na 126 on admission. Pt receiving NS @ 150 ml/hr - Resolved History of IV drug abuse. POA and Active with heroin during the week prior to arrival. - Hepatitis C negative - HIV negative History of tobacco use. By mouth and active - Nicotine patch ordered Disposition: Antibiotics to continue through April 04. Patient will remain in-house for transfer to possible [facility] [place] pending social work. GI Prophylaxis: H2 susan VTE Prophylaxis: Other (Pt has thrombocytopenia - no DVT prophylaxis for now.) VTE Mechanical Devices: Intermittant Pneumatic CD Resuscitation Status: CPR: Attempt Resuscitation Anmol Yip MD Mar 02, 2017 17:21
--- NOTE | 2017-03-02 19:17 | DRSVH ---
PROCEDURE: CT CHEST WITHOUT CONTRAST INDICATIONS: fever, cough COMPARISON: [facility], CT, CT CHEST ABD PELVIS WO CON, 02/17/2017, 1:38. [facility], CR, XR CHEST 1VW (PORTABLE), 02/26/2017, 19:01. Technique: Contiguous 5 mm axial images obtained through the chest. Soft tissue and lung windows as well as coronal and sagittal reconstruction images were obtained. FINDINGS: Numerous cavitary lesions are scattered throughout the lungs bilaterally. Lesions likely represent septic emboli, however finding is nonspecific and neoplastic or autoimmune processes can al so produce a similar appearance. Please correlate with clinical data clinical history. Trace right- sided pleural fluid collection is noted. Heart is normal. Small territorial fluid collection is not ed. Enlarged prevascular, paratracheal, aorticopulmonary window and subcarinal mediastinal lymph nod es are noted. Enlarged bilateral hilar lymph nodes are noted. Limited evaluation of the upper abdomen is within normal limits. Left chest wall central venous cath eter is noted. No supraclavicular or axillary lymphadenopathy. IMPRESSION: 1. Numerous bilateral cavitary lung nodules likely representing septic emboli, however correlation w ith clinical and laboratory data is recommended to exclude other etiologies including neoplastic and autoimmune processes. The nodules have increased in size and number in interval since prior examinati on obtained 02/17/17. 2. Trace right-sided pleural effusion. 3. Mediastinal and hilar lymphadenopathy which could be reactive or neoplastic. Dictated by: Airam Salguero MD, PhD on 03/02/2017 at 19:11 Approved by: Airam Salguero MD, PhD on 03/02/2017 at 19:16
[2017-03-03] VITALS (9 sets, daily range): BP systolic 99–122; BP diastolic 64–78; PULSE 98–119; RESP 16–32; O2SAT 95–99
[2017-03-03] MEDS: Dextromethorphan Polistirix 6 mg/mL 90 mL Suspension PO PRN ×2 (03:34→20:01)
[2017-03-03] MEDS: oxyCODONE 1 mg/mL 5 mL Liquid PO PRN ×3 (03:40→16:52)
--- NOTE | 2017-03-03 05:03 | NUR ---
PAIN Pt has had c/o "8" generalized pain, chest pain from coughing and Left shoulder pain. PRN oxycodone liquid and prn IV ativan administered per pt request, Q6H prn as ordered. Pt has been able to sleep after administration. Pt continues to have cough, prn cough syrup administered. Pt has maintained appropriate communication and behaviors. Continue to monitor. Call light in reach. Intentional rounding.
[2017-03-03] MEDS: Ondansetron 2 mg/mL 2 mL Inj IVPUSH PRN (06:39)
[2017-03-03] MEDS: DiphenOXYlate-Atropine 2.5 mg-0.025 mg Tablet PO PRN ×2 (09:15→20:02)
[2017-03-03] MEDS: guaiFENesin 600 mg ER12 Tablet PO SCH ×2 (09:15→20:01)
[2017-03-03] MEDS: Potassium Chloride 20 mEq SR Tablet PO SCH ×2 (09:16→18:20)
--- NOTE | 2017-03-03 09:30 | NUR ---
Diarrhea Pt complains of diarrhea x 2 this AM. Imodium given at request of pt. This RN encouraged increased fluid intake, water in particular. Will continue to monitor. Addendum: 03/03/17 at 1336 by SG MAY RN Diarrhea continues, Pt reports happens every time she eats. This RN encouraged pt to discontinue oral intake of apple juice. Ice water at bedside, will continue to monitor.
[2017-03-03] MEDS: lamoTRIgine 100 mg Tablet PO SCH ×2 (10:11→20:02)
[2017-03-03] MEDS: NAFCILLIN IV SCH ×2 (11:08→18:50)
[2017-03-03] MEDS: SODIUM CHLORIDE 0.9% IV SCH (11:08)
--- NOTE | 2017-03-03 13:38 | NUR ---
Fever Fever of 38.2, RR of 32, shoulder pain 9/10. paged, no new orders generated. Recommended a BRAT diet for diarrhea. Tylenol administered. Will continue to monitor.
[2017-03-03 14:24] LABS: ADAMTS13 Activity 40.8
[2017-03-03] MEDS: Albuterol 2.5 mg/3 mL Inhalation Solution NEB SCH ×3 (14:26→22:24)
--- NOTE | 2017-03-03 16:46 | NUR ---
Social Work-continued d/c planning: Data:EMR Reviewed. Pt is on day 14 of hospitalization for Sepsis per H&P. Pt is medically stable, but needs to remain at [facility] for course of IV abx. Referral has been made to [facility] Bed [facility]. CDP from [facility] has seen pt and pt is now declining services stating she just wants to go to [facility] for Methadone and resources have been provided. SW will continue to follow. Assessment:pt who will need mcc IV abx. Plan:Referral made to [facility] Bed unit vs remain at [facility] for remainder of IV abx. SW will continue to follow. BINA Sanchez
[2017-03-03] MEDS: DEXTROSE 5% IV SCH (18:50)
--- NOTE | 2017-03-03 19:14 | PCM.PNMED ---
Subjective Date of Service Mar 03, 2017 Subjective Patient was seen and examined at bedside today. Patient denies any chest pain, shortness of breath, vomiting. Patient states that today she does not "feel well" patient states that she is feeling some nausea today and left-sided shoulder pain. The patient still complains of diarrhea. Overnight events: None Exam Vital Signs Vital Sign - Last Date Time Temp Pulse Resp B/P Pulse Ox O2 Delivery O2 Flow Rate FiO2 03/03/17 16:40 37.3 101 22 103/72 95 03/03/17 14:26 Room Air 03/01/17 16:32 4.00 Intake and Output 03/02/17 03/02/17 03/03/17 Cumulative From/Thru 15:00 23:00 07:00 02/16/17 23:36 - 03/03/17 07:00 Intake Total 2157 ml 866 ml 02976 ml Output Total 99025 ml Balance 2157 ml 866 ml 54303 ml Intake Oral 1508 ml 400 ml 53846 ml IV Total 649 ml 466 ml 79849 ml Tube Feeding 400 ml Platelets 490 ml Output Urine Total 14265 ml Stool Total 800 ml Urine/Stool Mix 6450 ml # Voids 4 2 10 # Bowel Movements 0 0 17 Exam Physical Exam: GEN: Patient was awake, alert, responding appropriately to questions HEENT: Pupils equal round and reactive to light, extraocular eye muscles intact , Neck soft supple, trachea midline, nomocephalic/atraumatic, left-sided central line in place CV: +S1/S2, regular rate and rhythm, mild systolic murmurs auscultated Respiratory: Coarse breath sounds, mild wheezes, no rales, rhonchi GI: +bowel sounds x4, soft, compressible, nontender to palpation EXT: no clubbing, cyanosis, edema Neuro: Cranial nerves II-XII grossly intact Psych: mood and affect were appropriate IVs and Medications Medications Reviewed: Medications were reviewed in detail Lab and Diagnostics Result Diagram: 03/02/17 0350 03/02/17 0350 X-Rays, CTs and MRIs . X-RAY CHEST ONE VIEW, PORTABLE IMPRESSION: Diffuse bilateral patchy air space opacities suspicious for pneumonia. Dictated by: Delon LEYVA Interpreted: Jose Enrique York MD on 02/17/2017 X-RAY CHEST ONE VIEW, PORTABLE IMPRESSION: 1. Right internal jugular central venous catheter is in expected position. No pneumothorax. 2. Bilateral septic emboli as before. Dictated by: Lance Dan M.D. on 02/17/2017 CT CHEST, ABDOMEN AND PELVIS WITHOUT CONTRAST IMPRESSION: 1. Multiple bilateral cavitary lesions in the lungs consistent with recurrent septic emboli. The differential for these imaging findings includes inflammatory processes as well as metastatic disease but these are less likely given patient's prior history of septic emboli. 2. Slight asymmetric appearance of the right kidney with minimal perinephric stranding. However, evaluation for pyelonephritis is limited in the absence of intravenous contrast. Recommend correlation clinically. There is no hydronephrosis. 3. Mildly prominent bladder wall thickness likely due to incomplete distention. Recommend correlation with urinalysis. Dictated by: Sulaiman Haines M.D. on 02/17/2017 CT BRAIN WITHOUT CONTRAST IMPRESSION: 1. No acute intracranial abnormality. Dictated by: Sulaiman Haines M.D. on 02/17/2017 Cardiac Echo Impressions . Echocardiogram Report Name: RAJANI ALSTON JStudy Mirza e: 02/17/2017 Height : 63 in Hospital Exam Location: [facility] Weight : 155 lb Gender: Female BSA: 1 .7 m2 : 1990 Age: 26 yrs BP: 10 1/64 mmHg Reason For Study: ENDOCARDITIS/SEPSIS Ordering Physician: Stevie Jean Performed By: Hanny Wisdom Referring Physician: CHAPARRO BULL Interpretation Summary Sinus tachycardia. Normal LV size and wall thickness. There is normal LV wall motion and systolic function. EF is 55-60%. There is severe RV dilation with normal wall motion. There is severe RA dilation. There is a 2.5x0.9 cm vegetation on the downstream side of the tricuspid valve leaflet. There is moderate tricuspid regurgittation. There is normal valve structure and function otherwise. Estimated PASP is 42 mm Hg assuming RA pressure of 3 mm Hg. Compared to prior study 08/04/2016 sinus tachycardia is new. RV dilation is new. Vegetation on the tricuspid valve is old. Tricuspid regurgitation is old Assessment & Plan Pt is a 26 y/o female w/ a hx of tricuspid MSSA endocarditis, ongoing IVDA ( meth and heroin), septic PE, pneumonia, presenting to the ED c/o dyspnea. Acute endocarditis; present on admission; ongoing -Sepsis and shock to both resolved -White count normal, procal trending down -Daptomycin was discontinued 02/28/17 -Continue nafcillin through April 04 -Patient will remain here in the hospital until completion due to high risk of relapse -concerned about persistent fever; will repeat Chest CT non contrast shows either lymphadenopathy versus possible neoplastic disease -Start azithromycin 500 mg daily -Continue DuoNeb's scheduled -We will continue to monitor possibly consult pulmonology for further workup if no improvement however this is most likely secondary to the patient's current disease process of endocarditis Severe acute kidney injury. Present on admission. Resolving - Likely secondary to sepsis and hypotension and staphyloccocal glomerulonephritis. - C3/C4 decrease indicating likely infectious glomerulonephritis - Creatinine initially greater than 8; currently 1.71 - Nephrology consultation and Dr. Patel currently seeing the patient - Avoid nephrotoxic agents. Opioid dependence, poa, chronic. -The patient is tearful and frustrated that she is not receiving higher doses of opioid analgesics. Patient is demonstrating opioid seeking behaviors. She does not have an outpatient prescription for opioid analgesics. She is receiving oxycodone 5 mg every 4 hours when necessary. Nurses have observed the patient to pocket her oxycodone and administer them IV to herself. She was counseled regarding unacceptability this behavior. - Patient was counseled that increasing her opioid dependence with inpatient opioid medications, especially parenteral, of adverse long-term consequences for her health. - Current pain complaints consist of a chronic musculoskeletal complaints for which opioids are not indicated, and sepsis related rigors and musculoskeletal complaints which may be managed with antipyretics and nonsteroidal analgesics. - She should not receive additional opioids - Ativan 1 mg every 4 hours and will start decreasing Roxicodone - Patient remains on gabapentin 600 mg twice a day; home doses 3 times a day History of seizure disorder. POA and stable. -Patient states she is not on Lamictal at home -Titrating down Lamictal will decrease to 50 mg twice a day -Continuing topiramate, will start at 100 mg twice a day Acute blood loss anemia; present on admission; resolving -Patient's hemoglobin this morning was 5.9 due to her disconnecting her central line to go the bathroom, with significant blood loss back through the line -2 units PRBCs ordered stat and given on -We will continue to monitor Resolving, stable and or chronic problems: Acute sepsis with septic shock. Present on admission; resolved - Pt presented with temp 37.9, HR 145, BP 86/52, WBC 15.4 with left shift, lactic of 2.6. MSSA endocarditis with secondary bacteremia with persistently positive blood cultures at 5 days; CT positive for mycotic pulmonary embolism. Bcx negative since 02/21. Procal is down trending - Off norepinephrine for the time being; maintain mean arterial pressure of 65 mmHg - Discontinue daptomycin - Continue nafcillin through April 04 - Continue to follow blood cultures and CBC - Continue to use central line; will consider PICC tomorrow Persistent Diarrhea; present on admission; resolving -Patient continues to have diarrhea which was present when she initially presented and then decrease with loperamide -Could be a sign of opiate withdrawal although she has been on Roxicodone -Continue Lomotil daily -Start floor store twice a day -Previous C. difficile was negative; we will send additional sample and check again. 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 Present on admission. Ongoing - CT chest showed septic pulmonary emboli bilaterally - Echocardiogram demonstrates a tricuspid vegetation, moderate tricuspid regurg , right sided heart failure - Dr. Patel and Dr. Riddle indicate that the patient is not a candidate is not a candidate at the moment and will require 6 weeks of antibiotics in 6 months off heroin -Patient's attempted injection of Roxicodone into her central line that raises the question whether she will meet surgical criteria for valve replacement. Acute blood loss anemia; present on admission; resolving -Patient's hemoglobin this morning was 5.9 due to her disconnecting her central line to go the bathroom, with significant blood loss back through the line -2 units PRBCs ordered stat Left shoulder pain, acute on chronic. Present on admission. Resolving - Pt has history of septic joint of the left sternoclavicular joint; has been seen by orthopedics during the stay - Aspirate cell count, Gram stain, culture ordered 02/22/17 - Physical therapy to work with shoulder Hypokalemia, not present on admission. Matthew value of 2.7. -Supplement potassium orally Right ventricular heart failure with anasarca; present on admission; ongoing -Severe right ventricular dilation and tricuspid regurg, with pulmonary hypertension likely secondary to pulmonary embolisms -Cardiology was consulted Septic Encephalopathy; not present on admission; resolved. Patient had hallucinations, got out of bed and stooled on the floor. Likely related to either sepsis or combination of medications including morphine, Vistaril, and Ativan. - Stopped Vistaril except at bedtime, stop morphine, decrease Ativan - Resolved with reduction in pain medication - Currently on Seroquel which she apparently takes at home as well per her report Severe thrombocytopenia, acute. Present on admission. Resolved - Platelets reached as low as 31, due to sepsis Anion gap metabolic acidosis and lactic acidosis, acute. Present on admission, resolving. Secondary to lactic acidosis and PRISCILA. Gap 24. pH 7.26, pCO2 32.6, pO2 110, bicarb 14.2. - Resolved Hypovolemic Hyponatremia, acute. Present on admission. Resolved - Na 126 on admission. Pt receiving NS @ 150 ml/hr - Resolved History of IV drug abuse. POA and Active with heroin during the week prior to arrival. - Hepatitis C negative - HIV negative History of tobacco dependence. By mouth and active - Nicotine patch ordered Disposition: Antibiotics to continue through April 04. Patient will remain in-house for transfer to possible [facility] pending social work. GI Prophylaxis: H2 susan VTE Prophylaxis: Other (Pt has thrombocytopenia - no DVT prophylaxis for now.) VTE Mechanical Devices: Intermittant Pneumatic CD Resuscitation Status: CPR: Attempt Resuscitation Adeola Benton DO Mar 03, 2017 19:14
[2017-03-03] MEDS ORDERED: Sodium Chloride LOK Flush 10 mL Syringe IVFLUSH PRN ×2 (19:15)
--- NOTE | 2017-03-03 22:24 | NUR ---
Patient refused her 2030 neb treatment, asked patient if she wanted her 0230 tx and patient refused. Only wants them during the day, will ask MD to change to while awake. Patient has no respiratory distress, BS are clear bilaterally and is on RA
[2017-03-04] VITALS (13 sets, daily range): BP systolic 99–115; BP diastolic 62–81; PULSE 80–115; RESP 16–32; O2SAT 94–100
[2017-03-04] MEDS: oxyCODONE 1 mg/mL 5 mL Liquid PO PRN ×4 (00:18→21:00)
[2017-03-04 05:05] LABS: BASOPHILS % (AUTO) 1.3 % (0-3); MONOCYTES % (AUTO) 7.1 % (4-12); Mean Corpuscular Hemoglobin 30.6 pg (27.0-35.0); Mean Corpuscular Volume 93.7 fL (81-100); NEUTROPHILS % (AUTO) 57.6 % (40-74); Platelet Count 326 bil/L (150-400)
--- NOTE | 2017-03-04 06:23 | NUR ---
Pain c/o generalized pain x1 this shift. Prn oxycodone administered and effective. Noted to be sleeping almost entire shift and currently has no complaints.
[2017-03-04] MEDS: Albuterol 2.5 mg/3 mL Inhalation Solution NEB SCH ×3 (07:35→21:17)
--- NOTE | 2017-03-04 07:38 | NUR ---
Pt's nebulizer found on the floor. Pt given a new nebulizer.
[2017-03-04] MEDS: guaiFENesin 600 mg ER12 Tablet PO SCH ×2 (08:24→21:00)
[2017-03-04] MEDS: Potassium Chloride 20 mEq SR Tablet PO SCH ×2 (08:24→17:30)
[2017-03-04] MEDS: lamoTRIgine 100 mg Tablet PO SCH ×2 (08:25→21:00)
[2017-03-04] MEDS: Dextromethorphan Polistirix 6 mg/mL 90 mL Suspension PO PRN (08:27)
[2017-03-04] MEDS: NAFCILLIN IV SCH (09:55)
[2017-03-04] MEDS: DEXTROSE 5% IV SCH (09:55)
[2017-03-04] MEDS ORDERED: 0.9% Sodium Chloride 500 ML IV ONE (10:15)
--- NOTE | 2017-03-04 11:00 | NUR ---
Fever/tachycardia/nausea/diarrhea Tachycardia and fever at time of vitals, Tylenol given, pt requesting anti-diarrheal and anti nausea medication. PO Lomotil and IV Zofran given. Decreased nausea noted, MD informed, 500 mls NS wide open and BRAT diet ordered. IV fluids administered, Pt continues to be tachycardic, fever down from 100.3 to 99 F. Pt reports feeling "less achy". MD aware, will continue to monitor.
[2017-03-04] MEDS: Ondansetron 2 mg/mL 2 mL Inj IVPUSH PRN (11:17)
[2017-03-04] MEDS ORDERED: Darbepoetin Alfa 60 mCg/0.3 mL Inj SUBQ ONE (11:35)
[2017-03-04] MEDS: DiphenOXYlate-Atropine 2.5 mg-0.025 mg Tablet PO PRN (11:43)
--- NOTE | 2017-03-04 13:27 | NUR ---
NUTRITION FOLLOW UP: ASSESS: 26 YO F admitted to CCU for sepsis, PRISCILA with infectious glomerulonephritis, and endocarditis. Pt continues with nausea, diarrhea and variable po intake; started on BRAT diet with Ensure. Pt has history of IVD abuse. PRISCILA improving per notes. PMHX: Endocarditis, IVDA (meth and heroine), PE, PNA LABS: Reviewed. Cr 1.6, Glu94,Ca 8.2, Alb 2.9 MEDS: Reviewed. GI: Diarrhea continues per RN notes SKIN: no major issues. Hemanth Anderson CURRENT WT: 77.5 kg, BMI 30.3 kg/m2, Admit wt: 70.3kg, IBW: 52.3 kg DIET: General, PO intake 0-90% ESTIMATED NEEDS: PRISCILA Calories: 0339-7099 kcal/day (25-30 kcal/kg BW) Protein: 55-70 g/day (0.8-1.0 g/kg BW) NUTRITION DIAGNOSIS: 1.) Inadequate oral intake related to chronic disease as evidence by reported weakness prior to admit and history of endocarditis and IVD use.---PERSISTS. NUTRITION INTERVENTION: 1.) Continue current diet (BRAT--with diarrhea) and supplement/snacks as ordered. 2.) On 02/[address] with pt about foods that she likes/dislikes and bland foods that will not exacerbate her nausea. Pt does not like Magic Cups or Mighty shakes because they are too chalky/she says she can taste the added protein. She loves milk so will send 2 cartons of whole milk on all trays. She likes czech yogurt (which the hospital does not have) so encouraged pt to call her mom and have her mom bring in the yogurt that she likes and any other food that the pt prefers. She agreed to try Vanilla Ensure on L tray. Discussed how she can dilute the Ensure with milk so that it isn't so chalky. Discussed adding extra butter and gravy to foods to sneak in more kcal. Discussed eating smaller, more frequent meals when appetite is down. Encourage pt to try to eat at least 50% of all meals. Pt expressed understanding and stated that she would try. 3.) If diarrhea persists, consider addition of probiotics. MONITOR/EVALUATE: PO, wt, GI, labs, POC, nutrition status. Follow per moderate nutrition risk guidelines
--- NOTE | 2017-03-04 20:30 | PCM.PNMED ---
Subjective Date of Service Mar 04, 2017 Subjective Patient was seen and examined at bedside today. Patient denies any chest pain, nausea, vomiting. Patient states that her nausea and vomiting have improved however she still reports having diarrhea every time she eats. The patient still has had some fevers intermittently. Patient does report still having shortness of breath. Overnight events: None Exam Vital Signs Vital Sign - Last Date Time Temp Pulse Resp B/P Pulse Ox O2 Delivery O2 Flow Rate FiO2 03/04/17 17:36 37.0 90 26 110/75 95 Room Air 03/01/17 16:32 4.00 Intake and Output 03/03/17 03/03/17 03/04/17 Cumulative From/Thru 15:00 23:00 07:00 02/16/17 23:36 - 03/04/17 06:36 Intake Total 1800 ml 1813 ml 21443 ml Output Total 900 ml 1000 ml 35945 ml Balance 900 ml 813 ml 97423 ml Intake Oral 1800 ml 1200 ml 64826 ml IV Total 0 ml 613 ml 59103 ml Tube Feeding 400 ml Platelets 490 ml Output Urine Total 900 ml 1000 ml 99631 ml Stool Total 800 ml Urine/Stool Mix 6450 ml # Voids 10 # Bowel Movements 0 17 Exam Physical Exam: GEN: Patient was awake, alert, responding appropriately to questions HEENT: Pupils equal round and reactive to light, extraocular eye muscles intact , Neck soft supple, trachea midline, nomocephalic/atraumatic CV: +S1/S2, tachycardia, no murmurs auscultated Respiratory: CTAB, no wheezes, rales, rhonchi, this is significantly improved from yesterday when the patient had coarse breath sounds GI: +bowel sounds x4, soft, compressible, nontender to palpation EXT: no clubbing, cyanosis, edema Neuro: Cranial nerves II-XII grossly intact Psych: mood and affect were appropriate IVs and Medications Medications Reviewed: Medications were reviewed in detail Lab and Diagnostics Result Diagram: 03/04/1744903/04/17 0450 X-Rays, CTs and MRIs . X-RAY CHEST ONE VIEW, PORTABLE IMPRESSION: Diffuse bilateral patchy air space opacities suspicious for pneumonia. Dictated by: Delon Pelayo RRMaryjane Interpreted: Jose Enrique York MD on 02/17/2017 X-RAY CHEST ONE VIEW, PORTABLE IMPRESSION: 1. Right internal jugular central venous catheter is in expected position. No pneumothorax. 2. Bilateral septic emboli as before. Dictated by: Lance Dan M.D. on 02/17/2017 CT CHEST, ABDOMEN AND PELVIS WITHOUT CONTRAST IMPRESSION: 1. Multiple bilateral cavitary lesions in the lungs consistent with recurrent septic emboli. The differential for these imaging findings includes inflammatory processes as well as metastatic disease but these are less likely given patient's prior history of septic emboli. 2. Slight asymmetric appearance of the right kidney with minimal perinephric stranding. However, evaluation for pyelonephritis is limited in the absence of intravenous contrast. Recommend correlation clinically. There is no hydronephrosis. 3. Mildly prominent bladder wall thickness likely due to incomplete distention. Recommend correlation with urinalysis. Dictated by: Sulaiman Haines M.D. on 02/17/2017 CT BRAIN WITHOUT CONTRAST IMPRESSION: 1. No acute intracranial abnormality. Dictated by: Sulaiman Haines M.D. on 02/17/2017 Cardiac Echo Impressions . Echocardiogram Report Name: RAJANI ALSTONtudy Mirza e: 02/17/2017 Height : 63 in Hospital Exam Location: [facility] Weight : 155 lb Gender: Female BSA: 1 .7 m2 : 1990 Age: 26 yrs BP: 10 1/64 mmHg Reason For Study: ENDOCARDITIS/SEPSIS Ordering Physician: Stevie Jean Performed By: Hanny Wisdom Referring Physician: CHAPARRO BULL Interpretation Summary Sinus tachycardia. Normal LV size and wall thickness. There is normal LV wall motion and systolic function. EF is 55-60%. There is severe RV dilation with normal wall motion. There is severe RA dilation. There is a 2.5x0.9 cm vegetation on the downstream side of the tricuspid valve leaflet. There is moderate tricuspid regurgittation. There is normal valve structure and function otherwise. Estimated PASP is 42 mm Hg assuming RA pressure of 3 mm Hg. Compared to prior study 08/04/2016 sinus tachycardia is new. RV dilation is new. Vegetation on the tricuspid valve is old. Tricuspid regurgitation is old Assessment & Plan Pt is a 26 y/o female w/ a hx of tricuspid MSSA endocarditis, ongoing IVDA ( meth and heroin), septic PE, pneumonia, presenting to the ED c/o dyspnea. Acute endocarditis; present on admission; ongoing -Sepsis and shock both resolved -White count normal, procal trending down -Daptomycin was discontinued 02/28/17 -Continue nafcillin through April 04 -Patient will remain here in the hospital until completion due to high risk of relapse -concerned about persistent fever; will repeat Chest CT non contrast shows either lymphadenopathy versus possible neoplastic disease -Start azithromycin 500 mg daily -Continue DuoNeb's scheduled -We will continue to monitor possibly consult pulmonology for further workup if no improvement however this is most likely secondary to the patient's current disease process of endocarditis Severe acute kidney injury. Present on admission. Resolving - Likely secondary to sepsis and hypotension and staphyloccocal glomerulonephritis. - C3/C4 decrease indicating likely infectious glomerulonephritis - Creatinine initially greater than 8; currently 1.6 - Nephrology consulted Dr. Patel (signed off with the patient on 02/29/2016) - Avoid nephrotoxic agents. Opioid dependence, poa, chronic. -The patient is tearful and frustrated that she is not receiving higher doses of opioid analgesics. Patient is demonstrating opioid seeking behaviors. She does not have an outpatient prescription for opioid analgesics. She is receiving oxycodone 5 mg every 4 hours when necessary. Nurses have observed the patient to pocket her oxycodone and administer them IV to herself. She was counseled regarding unacceptability this behavior. - Patient was counseled that increasing her opioid dependence with inpatient opioid medications, especially parenteral, of adverse long-term consequences for her health. - Current pain complaints consist of a chronic musculoskeletal complaints for which opioids are not indicated, and sepsis related rigors and musculoskeletal complaints which may be managed with antipyretics and nonsteroidal analgesics. - She should not receive additional opioids - Ativan 1 mg every 4 hours and will start decreasing Roxicodone - Patient remains on gabapentin 600 mg twice a day; home doses 3 times a day History of seizure disorder. POA and stable. -Patient states she is not on Lamictal at home -Titrating down Lamictal currently at 50 mg twice a day continue to titrate down -Continuing topiramate, will start at 100 mg twice a day Acute blood loss anemia; present on admission; resolving -Patient's hemoglobin this morning was 5.9 due to her disconnecting her central line to go the bathroom, with significant blood loss back through the line (02/26) -2 units PRBCs ordered stat and given on -We will continue to monitor Resolving, stable and or chronic problems: Acute sepsis with septic shock. Present on admission; resolved - Pt presented with temp 37.9, HR 145, BP 86/52, WBC 15.4 with left shift, lactic of 2.6. MSSA endocarditis with secondary bacteremia with persistently positive blood cultures at 5 days; CT positive for mycotic pulmonary embolism. Bcx negative since 02/21. Procal is down trending - Off norepinephrine for the time being; maintain mean arterial pressure of 65 mmHg - Discontinue daptomycin - Continue nafcillin through April 04 - Continue to follow blood cultures and CBC - Continue to use central line; will consider PICC Persistent Diarrhea; present on admission; resolving -Patient continues to have diarrhea which was present when she initially presented and then decrease with loperamide -Could be a sign of opiate withdrawal although she has been on Roxicodone -Continue Lomotil daily -Start floor store twice a day -Previous C. difficile was negative; we will send additional sample and check again. -Patient will start the brat diet Tricuspid valve endocarditis with Septic pulmonary emboli and right heart failure, acute. Present on admission. Ongoing - CT chest showed septic pulmonary emboli bilaterally - Echocardiogram demonstrates a tricuspid vegetation, moderate tricuspid regurg , right sided heart failure - Dr. Patel and Dr. Riddle indicate that the patient is not a candidate is not a candidate at the moment and will require 6 weeks of antibiotics in 6 months off heroin -Patient's attempted injection of Roxicodone into her central line that raises the question whether she will meet surgical criteria for valve replacement. -Patient's Elaquis was restarted today Acute blood loss anemia; present on admission; resolving -Patient's hemoglobin this morning was 5.9 due to her disconnecting her central line to go the bathroom, with significant blood loss back through the line -2 units PRBCs ordered stat Left shoulder pain, acute on chronic. Present on admission. Resolving - Pt has history of septic joint of the left sternoclavicular joint; has been seen by orthopedics during the stay - Aspirate cell count, Gram stain, culture ordered 02/22/17 - Physical therapy to work with shoulder Hypokalemia, not present on admission. Matthew value of 2.7. -Supplement potassium orally Right ventricular heart failure with anasarca; present on admission; ongoing -Severe right ventricular dilation and tricuspid regurg, with pulmonary hypertension likely secondary to pulmonary embolisms -Cardiology was consulted Septic Encephalopathy; not present on admission; resolved. Patient had hallucinations, got out of bed and stooled on the floor. Likely related to either sepsis or combination of medications including morphine, Vistaril, and Ativan. - Stopped Vistaril except at bedtime, stop morphine, decrease Ativan - Resolved with reduction in pain medication - Currently on Seroquel which she apparently takes at home as well per her report Severe thrombocytopenia, acute. Present on admission. Resolved - Platelets reached as low as 31, due to sepsis Anion gap metabolic acidosis and lactic acidosis, acute. Present on admission, resolving. Secondary to lactic acidosis and PRISCILA. Gap 24. pH 7.26, pCO2 32.6, pO2 110, bicarb 14.2. - Resolved Hypovolemic Hyponatremia, acute. Present on admission. Resolved - Na 126 on admission. Pt receiving NS @ 150 ml/hr - Resolved History of IV drug abuse. POA and Active with heroin during the week prior to arrival. - Hepatitis C negative - HIV negative History of tobacco dependence. By mouth and active - Nicotine patch ordered Disposition: Antibiotics to continue through April 04. Patient will remain in-house for transfer to possible [facility] pending social work. The patient is still running fevers and she is currently now being treated for pneumonia. The patient's Eliquis has been restarted today. The patient was also started on a brat diet in order to help treat her diarrhea in addition to her current antidiarrheal medications. The patient has also been cultured for possible C. difficile. The patient's medications have been adjusted as he is potentially could be causing her diarrhea will continue to follow up with the patient. GI Prophylaxis: H2 susan VTE Prophylaxis: Other (Pt has thrombocytopenia - no DVT prophylaxis for now.) VTE Mechanical Devices: Intermittant Pneumatic CD Resuscitation Status: CPR: Attempt Resuscitation Adeola Benton DO Mar 04, 2017 20:30
[2017-03-05] VITALS (8 sets, daily range): BP systolic 108–134; BP diastolic 73–82; PULSE 81–125; RESP 16–26; O2SAT 97–100
[2017-03-05] MEDS: Albuterol 2.5 mg/3 mL Inhalation Solution NEB SCH ×4 (02:30→20:30)
[2017-03-05] MEDS: oxyCODONE 1 mg/mL 5 mL Liquid PO PRN ×3 (05:12→18:07)
--- NOTE | 2017-03-05 07:25 | NUR ---
Pain/anxiety/tele Pt c/o shoulder pain 8/ x 2 receiving Oxycodone 5mg which was helpful per pt. Pt also c/o anxiety x 3 receiving Lorazepam 1mg-effective. Tele: SR/ST hr 102 per manager monitoring. Care continues.
[2017-03-05] MEDS: Ondansetron 2 mg/mL 2 mL Inj IVPUSH PRN (08:28)
[2017-03-05] MEDS: Potassium Chloride 20 mEq SR Tablet PO SCH ×2 (08:38→17:57)
[2017-03-05] MEDS: lamoTRIgine 100 mg Tablet PO SCH (08:38)
[2017-03-05] MEDS: guaiFENesin 600 mg ER12 Tablet PO SCH ×2 (08:38→20:45)
[2017-03-05 09:30] LABS: MONOCYTES % (AUTO) 6.4 % (4-12); Mean Corpuscular Hemoglobin 30.1 pg (27.0-35.0); Mean Corpuscular Volume 94.3 fL (81-100); NEUTROPHILS % (AUTO) 65.2 % (40-74); Platelet Count 311 bil/L (150-400)
--- NOTE | 2017-03-05 17:47 | PCM.PNMED ---
Subjective Date of Service Mar 05, 2017 Subjective Patient was seen and examined at bedside today. Patient denies any chest pain, nausea, vomiting. Patient states that she is still having diarrhea every time she eats, but reports that she has not been receiving the brat diet. The patient still has had some fevers intermittently. Patient does report still having shortness of breath. Overnight events: None Exam Vital Signs Vital Sign - Last Date Time Temp Pulse Resp B/P Pulse Ox O2 Delivery O2 Flow Rate FiO2 03/05/17 13:40 39.1 03/05/17 12:35 125 18 134/82 97 Room Air 03/01/17 16:32 4.00 Intake and Output 03/04/17 03/04/17 03/05/17 Cumulative From/Thru 15:00 23:00 07:00 02/16/17 23:36 - 03/05/17 05:10 Intake Total 2248 ml 897 ml 53417 ml Output Total 1550 ml 1100 ml 65301 ml Balance 698 ml -203 ml 24989 ml Intake Oral 1225 ml 336 ml 73657 ml IV Total 1023 ml 531 ml 81479 ml Tube Feeding 400 ml Platelets 490 ml Tube Irrigant 30 ml 30 ml Output Urine Total 1400 ml 950 ml 14407 ml Stool Total 150 ml 150 ml 1100 ml Urine/Stool Mix 6450 ml # Voids 10 # Bowel Movements 17 Exam Physical Exam: GEN: Patient was awake, alert, responding appropriately to questions HEENT: Pupils equal round and reactive to light, extraocular eye muscles intact , Neck soft supple, trachea midline, nomocephalic/atraumatic CV: +S1/S2, regular rate and rhythm, no murmurs auscultated Respiratory: CTAB, no wheezes, rales, rhonchi GI: +bowel sounds x4, soft, compressible, nontender to palpation EXT: no clubbing, cyanosis, edema Neuro: Cranial nerves II-XII grossly intact Psych: mood and affect were appropriate IVs and Medications Medications Reviewed: Medications were reviewed in detail Lab and Diagnostics Result Diagram: 03/05/17 0900 03/05/17 0900 X-Rays, CTs and MRIs . X-RAY CHEST ONE VIEW, PORTABLE IMPRESSION: Diffuse bilateral patchy air space opacities suspicious for pneumonia. Dictated by: Delon LEYVA Interpreted: Jose Enrique York MD on 02/17/2017 X-RAY CHEST ONE VIEW, PORTABLE IMPRESSION: 1. Right internal jugular central venous catheter is in expected position. No pneumothorax. 2. Bilateral septic emboli as before. Dictated by: Lance Dan M.D. on 02/17/2017 CT CHEST, ABDOMEN AND PELVIS WITHOUT CONTRAST IMPRESSION: 1. Multiple bilateral cavitary lesions in the lungs consistent with recurrent septic emboli. The differential for these imaging findings includes inflammatory processes as well as metastatic disease but these are less likely given patient's prior history of septic emboli. 2. Slight asymmetric appearance of the right kidney with minimal perinephric stranding. However, evaluation for pyelonephritis is limited in the absence of intravenous contrast. Recommend correlation clinically. There is no hydronephrosis. 3. Mildly prominent bladder wall thickness likely due to incomplete distention. Recommend correlation with urinalysis. Dictated by: Sulaiman Haines M.D. on 02/17/2017 CT BRAIN WITHOUT CONTRAST IMPRESSION: 1. No acute intracranial abnormality. Dictated by: Sulaiman Haines M.D. on 02/17/2017 Cardiac Echo Impressions . Echocardiogram Report Name: RAJANI ALSTON JStudy Mirza e: 02/17/2017 Height : 63 in Hospital Exam Location: [facility] Weight : 155 lb Gender: Female BSA: 1 .7 m2 : 1990 Age: 26 yrs BP: 10 1/64 mmHg Reason For Study: ENDOCARDITIS/SEPSIS Ordering Physician: Stevie Jean Performed By: Hanny Wisdom Referring Physician: CHAPARRO BULL Interpretation Summary Sinus tachycardia. Normal LV size and wall thickness. There is normal LV wall motion and systolic function. EF is 55-60%. There is severe RV dilation with normal wall motion. There is severe RA dilation. There is a 2.5x0.9 cm vegetation on the downstream side of the tricuspid valve leaflet. There is moderate tricuspid regurgittation. There is normal valve structure and function otherwise. Estimated PASP is 42 mm Hg assuming RA pressure of 3 mm Hg. Compared to prior study 08/04/2016 sinus tachycardia is new. RV dilation is new. Vegetation on the tricuspid valve is old. Tricuspid regurgitation is old Assessment & Plan Pt is a 26 y/o female w/ a hx of tricuspid MSSA endocarditis, ongoing IVDA ( meth and heroin), septic PE, pneumonia, presenting to the ED c/o dyspnea. Acute endocarditis; present on admission; ongoing -Sepsis and shock both resolved -White count normal, procal trending down -Daptomycin was discontinued 02/28/17 -Continue nafcillin through April 04 -Patient will remain here in the hospital until completion due to high risk of relapse -concerned about persistent fever; will repeat Chest CT non contrast shows either lymphadenopathy versus possible neoplastic disease -Continue azithromycin 500 mg daily -Continue DuoNeb's scheduled -We will continue to monitor possibly consult pulmonology for further workup if no improvement however this is most likely secondary to the patient's current disease process of endocarditis Severe acute kidney injury. Present on admission. Resolving - Likely secondary to sepsis and hypotension and staphyloccocal glomerulonephritis. - C3/C4 decrease indicating likely infectious glomerulonephritis - Creatinine initially greater than 8; still trending down currently 1.35 - Nephrology consulted Dr. Patel (signed off with the patient on 02/29/2016) - Avoid nephrotoxic agents. Opioid dependence, poa, chronic. -The patient is tearful and frustrated that she is not receiving higher doses of opioid analgesics. Patient is demonstrating opioid seeking behaviors. She does not have an outpatient prescription for opioid analgesics. She is receiving oxycodone 5 mg every 4 hours when necessary. Nurses have observed the patient to pocket her oxycodone and administer them IV to herself. She was counseled regarding unacceptability this behavior. - Patient was counseled that increasing her opioid dependence with inpatient opioid medications, especially parenteral, of adverse long-term consequences for her health. - Current pain complaints consist of a chronic musculoskeletal complaints for which opioids are not indicated, and sepsis related rigors and musculoskeletal complaints which may be managed with antipyretics and nonsteroidal analgesics. - She should not receive additional opioids - Ativan 1 mg every 4 hours and will start decreasing Roxicodone - Patient remains on gabapentin 600 mg twice a day; home doses 3 times a day History of seizure disorder. POA and stable. -Patient states she is not on Lamictal at home -Titrating down Lamictal currently at 25 mg twice a day continue to titrate down -Continuing topiramate, will at 100 mg twice a day Acute blood loss anemia; present on admission; resolving -Patient's hemoglobin this morning was 5.9 due to her disconnecting her central line to go the bathroom, with significant blood loss back through the line (02/26) -2 units PRBCs ordered stat and given on -We will continue to monitor Resolving, stable and or chronic problems: Acute sepsis with septic shock. Present on admission; resolved - Pt presented with temp 37.9, HR 145, BP 86/52, WBC 15.4 with left shift, lactic of 2.6. MSSA endocarditis with secondary bacteremia with persistently positive blood cultures at 5 days; CT positive for mycotic pulmonary embolism. Bcx negative since 02/21. Procal is down trending - Off norepinephrine for the time being; maintain mean arterial pressure of 65 mmHg - Discontinue daptomycin - Continue nafcillin through April 04 - Continue to follow blood cultures and CBC - Continue to use central line; will consider PICC Persistent Diarrhea; present on admission; resolving -Patient continues to have diarrhea which was present when she initially presented and then decrease with loperamide -Could be a sign of opiate withdrawal although she has been on Roxicodone -Continue Lomotil daily -Continue Florastor twice a day -Previous C. difficile was negative; repeat C. 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 Present on admission. Ongoing - CT chest showed septic pulmonary emboli bilaterally - Echocardiogram demonstrates a tricuspid vegetation, moderate tricuspid regurg , right sided heart failure - Dr. Patel and Dr. Riddle indicate that the patient is not a candidate is not a candidate at the moment and will require 6 weeks of antibiotics in 6 months off heroin -Patient's attempted injection of Roxicodone into her central line that raises the question whether she will meet surgical criteria for valve replacement. -Continue Eliquis Acute blood loss anemia; present on admission; stable -Patient's hemoglobin this morning was 5.9 due to her disconnecting her central line to go the bathroom, with significant blood loss back through the line -2 units PRBCs ordered stat Left shoulder pain, acute on chronic. Present on admission. Resolving - Pt has history of septic joint of the left sternoclavicular joint; has been seen by orthopedics during the stay - Aspirate cell count, Gram stain, culture ordered 02/22/17 - Physical therapy to work with shoulder Hypokalemia, not present on admission. Matthew value of 2.7. -Supplement potassium orally Right ventricular heart failure with anasarca; present on admission; ongoing -Severe right ventricular dilation and tricuspid regurg, with pulmonary hypertension likely secondary to pulmonary embolisms -Cardiology was consulted Septic Encephalopathy; not present on admission; resolved. Patient had hallucinations, got out of bed and stooled on the floor. Likely related to either sepsis or combination of medications including morphine, Vistaril, and Ativan. - Stopped Vistaril except at bedtime, stop morphine, decrease Ativan - Resolved with reduction in pain medication - Currently on Seroquel which she apparently takes at home as well per her report Severe thrombocytopenia, acute. Present on admission. Resolved - Platelets reached as low as 31, due to sepsis Anion gap metabolic acidosis and lactic acidosis, acute. Present on admission, resolving. Secondary to lactic acidosis and PRISCILA. Gap 24. pH 7.26, pCO2 32.6, pO2 110, bicarb 14.2. - Resolved Hypovolemic Hyponatremia, acute. Present on admission. Resolved - Na 126 on admission. Pt receiving NS @ 150 ml/hr - Resolved History of IV drug abuse. POA and Active with heroin during the week prior to arrival. - Hepatitis C negative - HIV negative History of tobacco dependence. By mouth and active - Nicotine patch ordered Disposition: Antibiotics to continue through April 04. Patient will remain in-house for transfer to [facility] pending social work. The patient is still running fevers and she is currently now being treated for pneumonia. The patient was encouraged to maintain strictly to the brat diet at this time in order to help decrease her diarrhea. The patient's C. difficile cultures have been negative. The patient does continue to run intermittent fevers daily which tend to respond to Tylenol, this is most likely secondary to her septic emboli and endocarditis. We will continue to monitor and treat. GI Prophylaxis: H2 susan VTE Prophylaxis: Other (Pt has thrombocytopenia - no DVT prophylaxis for now.) VTE Mechanical Devices: Intermittant Pneumatic CD Resuscitation Status: CPR: Attempt Resuscitation Adeola Benton DO Mar 05, 2017 17:46
[2017-03-05] MEDS: NAFCILLIN IV SCH (18:08)
[2017-03-05] MEDS: DEXTROSE 5% IV SCH (18:08)
--- NOTE | 2017-03-05 18:25 | NUR ---
Fever Pt. developed a fever this morning of 39.4. Pt. was diaphoretic, with chills and tachycardia in the 140s. Md notified and tylenol administered. f/u temp was still elevated, but chills and tachycardia were a little improved. This afternoon temp was 36.7, HR 86. Pt. states this has been happening "most days". Will continue to monitor.
[2017-03-05] MEDS: lamoTRIgine 25 mg Tablet PO SCH (20:45)
[2017-03-06] VITALS (10 sets, daily range): BP systolic 101–120; BP diastolic 70–82; PULSE 87–109; RESP 14–20; O2SAT 96–100
[2017-03-06] MEDS: oxyCODONE 1 mg/mL 5 mL Liquid PO PRN ×4 (00:19→21:51)
[2017-03-06] MEDS: Albuterol 2.5 mg/3 mL Inhalation Solution NEB SCH ×4 (02:30→19:58)
--- NOTE | 2017-03-06 03:16 | NUR ---
Anxiety/pain/Tele Pt c/o anxiety requesting Lorazepam 1mg IVP and Oxycodone for 8/10 LT shoulder pain. Pt continues to fall asleep after administration of meds;however, easy to arouse. Tele: Sinus Tach HR 103 per satellite project site monitor. Denies chest pain, shortness of breath and nausea. Care continues.
[2017-03-06 05:16] LABS: BASOPHILS % (AUTO) 0.7 % (0-3); MONOCYTES % (AUTO) 6.7 % (4-12); Mean Corpuscular Hemoglobin 29.8 pg (27.0-35.0); Mean Corpuscular Volume 94.1 fL (81-100); Platelet Count 311 bil/L (150-400)
[2017-03-06] MEDS: guaiFENesin 600 mg ER12 Tablet PO SCH ×2 (07:41→20:51)
[2017-03-06] MEDS: lamoTRIgine 25 mg Tablet PO SCH ×2 (07:41→20:52)
[2017-03-06] MEDS: Potassium Chloride 20 mEq SR Tablet PO SCH ×2 (07:41→17:22)
--- NOTE | 2017-03-06 13:59 | PCM.PNMED ---
Subjective Date of Service Mar 06, 2017 Subjective Patient was seen and examined at bedside today. Patient denies any chest pain, shortness of breath, nausea, vomiting. Patient states today that her diarrhea has improved. Patient was encouraged to continue with the brat diet for now until her diarrhea is completely resolved. Overnight events: None Exam Vital Signs Vital Sign - Last Date Time Temp Pulse Resp B/P Pulse Ox O2 Delivery O2 Flow Rate FiO2 03/06/17 13:32 36.9 102 14 111/78 99 Room Air 03/01/17 16:32 4.00 Intake and Output 03/05/17 03/05/17 03/06/17 Cumulative From/Thru 14:59 22:59 06:59 02/16/17 23:36 - 03/06/17 06:48 Intake Total 776 ml 875 ml 07707 ml Output Total 425 ml 28742 ml Balance 351 ml 875 ml 29350 ml Intake Oral 656 ml 875 ml 70349 ml IV Total 120 ml 53158 ml Tube Feeding 400 ml Platelets 490 ml Tube Irrigant 30 ml Output Urine Total 32590 ml Stool Total 425 ml 1525 ml Urine/Stool Mix 6450 ml # Voids 2 4 16 # Bowel Movements 0 17 Exam Physical Exam: GEN: Patient was awake, alert, responding appropriately to questions HEENT: Pupils equal round and reactive to light, extraocular eye muscles intact , Neck soft supple, trachea midline, nomocephalic/atraumatic, left IJ in place CV: +S1/S2, regular rate and rhythm, no murmurs auscultated Respiratory: CTAB, no wheezes, rales, rhonchi GI: +bowel sounds x4, soft, compressible, nontender to palpation EXT: no clubbing, cyanosis, edema Neuro: Cranial nerves II-XII grossly intact Psych: mood and affect were appropriate IVs and Medications Medications Reviewed: Medications were reviewed in detail Lab and Diagnostics Result Diagram: 03/06/17 0500 03/06/17 0500 X-Rays, CTs and MRIs . X-RAY CHEST ONE VIEW, PORTABLE IMPRESSION: Diffuse bilateral patchy air space opacities suspicious for pneumonia. Dictated by: Delon LEYVA Interpreted: Jose Enrique York MD on 02/17/2017 X-RAY CHEST ONE VIEW, PORTABLE IMPRESSION: 1. Right internal jugular central venous catheter is in expected position. No pneumothorax. 2. Bilateral septic emboli as before. Dictated by: Lance Dan M.D. on 02/17/2017 CT CHEST, ABDOMEN AND PELVIS WITHOUT CONTRAST IMPRESSION: 1. Multiple bilateral cavitary lesions in the lungs consistent with recurrent septic emboli. The differential for these imaging findings includes inflammatory processes as well as metastatic disease but these are less likely given patient's prior history of septic emboli. 2. Slight asymmetric appearance of the right kidney with minimal perinephric stranding. However, evaluation for pyelonephritis is limited in the absence of intravenous contrast. Recommend correlation clinically. There is no hydronephrosis. 3. Mildly prominent bladder wall thickness likely due to incomplete distention. Recommend correlation with urinalysis. Dictated by: Sulaiman Haines M.D. on 02/17/2017 CT BRAIN WITHOUT CONTRAST IMPRESSION: 1. No acute intracranial abnormality. Dictated by: Sulaiman Haines M.D. on 02/17/2017 Cardiac Echo Impressions . Echocardiogram Report Name: RAJANI ALSTON JStudy Mirza e: 02/17/2017 Height : 63 in Hospital Exam Location: [facility] Weight : 155 lb Gender: Female BSA: 1 .7 m2 : 1990 Age: 26 yrs BP: 10 1/64 mmHg Reason For Study: ENDOCARDITIS/SEPSIS Ordering Physician: Stevie Jean Performed By: Hanny Wisdom Referring Physician: CHAPARRO BULL Interpretation Summary Sinus tachycardia. Normal LV size and wall thickness. There is normal LV wall motion and systolic function. EF is 55-60%. There is severe RV dilation with normal wall motion. There is severe RA dilation. There is a 2.5x0.9 cm vegetation on the downstream side of the tricuspid valve leaflet. There is moderate tricuspid regurgittation. There is normal valve structure and function otherwise. Estimated PASP is 42 mm Hg assuming RA pressure of 3 mm Hg. Compared to prior study 08/04/2016 sinus tachycardia is new. RV dilation is new. Vegetation on the tricuspid valve is old. Tricuspid regurgitation is old Assessment & Plan Pt is a 26 y/o female w/ a hx of tricuspid MSSA endocarditis, ongoing IVDA ( meth and heroin), septic PE, pneumonia, presenting to the ED c/o dyspnea. Acute endocarditis; present on admission; ongoing -Sepsis and shock both resolved -White count normal, procal trending down -Daptomycin was discontinued 02/28/17 -Continue nafcillin through April 04 -Patient will remain here in the hospital until completion due to high risk of relapse -Concerned about persistent fever; will repeat Chest CT non contrast shows either lymphadenopathy versus possible neoplastic disease -Continue azithromycin 500 mg daily and linezolid 600 mg twice a day for possible pneumonia patient seems to be improving no longer has coarse breath sounds or wheezes/Rales/rhonchi -Continue DuoNeb's scheduled -We will continue to monitor possibly consult pulmonology for further workup if no improvement however this is most likely secondary to the patient's current disease process of endocarditis with septic emboli Severe acute kidney injury. Present on admission. Resolving - Likely secondary to sepsis and hypotension and staphyloccocal glomerulonephritis. - C3/C4 decrease indicating likely infectious glomerulonephritis - Creatinine initially greater than 8; still trending down currently 1.29 - Nephrology consulted Dr. Patel (signed off with the patient on 02/29/2016) - Avoid nephrotoxic agents. Opioid dependence, poa, chronic. -The patient is tearful and frustrated that she is not receiving higher doses of opioid analgesics. Patient is demonstrating opioid seeking behaviors. She does not have an outpatient prescription for opioid analgesics. She is receiving oxycodone 5 mg every 4 hours when necessary. Nurses have observed the patient to pocket her oxycodone and administer them IV to herself. She was counseled regarding unacceptability this behavior. - Patient was counseled that increasing her opioid dependence with inpatient opioid medications, especially parenteral, of adverse long-term consequences for her health. - Current pain complaints consist of a chronic musculoskeletal complaints for which opioids are not indicated, and sepsis related rigors and musculoskeletal complaints which may be managed with antipyretics and nonsteroidal analgesics. - She should not receive additional opioids - Ativan 1 mg every 4 hours and will start decreasing Roxicodone - Patient remains on gabapentin 600 mg twice a day; home doses 3 times a day History of seizure disorder. POA and stable. -Patient states she is not on Lamictal at home -Titrating down Lamictal currently at 25 mg twice a day continue to titrate down tomorrow -Continuing topiramate, at 100 mg twice a day Acute blood loss anemia; present on admission; active -Patient's hemoglobin this morning was 5.9 due to her disconnecting her central line to go the bathroom, with significant blood loss back through the line (02/26) -2 units PRBCs ordered stat and given on -Patient's H&H is currently dropping we will continue to monitor and transfuse as necessary Acute sepsis with septic shock. Present on admission; resolved - Pt presented with temp 37.9, HR 145, BP 86/52, WBC 15.4 with left shift, lactic of 2.6. MSSA endocarditis with secondary bacteremia with persistently positive blood cultures at 5 days; CT positive for mycotic pulmonary embolism. Bcx negative since 02/21. Procal is down trending - Off norepinephrine for the time being; maintain mean arterial pressure of 65 mmHg - Discontinue daptomycin - Continue nafcillin through April 04 - Continue to follow blood cultures and CBC - Continue to use central line; will consider PICC if this is necessary for the patient to be transferred to [facility] Persistent Diarrhea; present on admission; resolving -Patient continues to have diarrhea which was present when she initially presented and then decrease with loperamide -Could be a sign of opiate withdrawal although she has been on Roxicodone -Continue Lomotil daily -Continue Florastor twice a day -Previous C. difficile was negative; repeat C. 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 Present on admission. Ongoing - CT chest showed septic pulmonary emboli bilaterally - Echocardiogram demonstrates a tricuspid vegetation, moderate tricuspid regurg , right sided heart failure - Dr. Patel and Dr. Riddle indicate that the patient is not a candidate is not a candidate at the moment and will require 6 weeks of antibiotics in 6 months off heroin -Patient's attempted injection of Roxicodone into her central line that raises the question whether she will meet surgical criteria for valve replacement. -Continue Eliquis for anticoagulation Left shoulder pain, acute on chronic. Present on admission. Resolving - Pt has history of septic joint of the left sternoclavicular joint; has been seen by orthopedics during the stay - Aspirate cell count, Gram stain, culture ordered 02/22/17 - Physical therapy to work with shoulder Hypokalemia, not present on admission. Matthew value of 2.7. -Supplement potassium orally Right ventricular heart failure with anasarca; present on admission; resolving -Severe right ventricular dilation and tricuspid regurg, with pulmonary hypertension likely secondary to pulmonary embolisms -Cardiology was consulted no longer following at this time continue to treat with antibiotics Septic Encephalopathy; not present on admission; resolved. Patient had hallucinations, got out of bed and stooled on the floor. Likely related to either sepsis or combination of medications including morphine, Vistaril, and Ativan. - Stopped Vistaril except at bedtime, stop morphine, decrease Ativan - Resolved with reduction in pain medication - Currently on Seroquel which she apparently takes at home as well per her report Severe thrombocytopenia, acute. Present on admission. Resolved - Platelets reached as low as 31, due to sepsis - Platelets currently with in normal range Anion gap metabolic acidosis and lactic acidosis, acute. Present on admission, resolved. Secondary to lactic acidosis and PRISCILA. Gap 24. pH 7.26, pCO2 32.6, pO2 110, bicarb 14.2. - Resolved Hypovolemic Hyponatremia, acute. Present on admission. Resolved - Na 126 on admission. Pt receiving NS @ 150 ml/hr - Resolved History of IV drug abuse. POA and Active with heroin during the week prior to arrival. - Hepatitis C negative - HIV negative History of tobacco dependence. By mouth and active - Nicotine patch ordered Disposition: Antibiotics to continue through April 04. Patient will remain in-house for transfer to [facility] pending social work. The patient is still running fevers and she is currently now being treated for pneumonia. The patient was encouraged to continue to adhere to the brat diet at this time in order to help resolve her diarrhea. The patient's C. difficile cultures have been negative. The patient does continue to run intermittent fevers daily which tend to respond to Tylenol, this is most likely secondary to her septic emboli and endocarditis. We will continue to monitor and treat. GI Prophylaxis: H2 susan VTE Prophylaxis: Other (Pt has thrombocytopenia - no DVT prophylaxis for now.) VTE Mechanical Devices: Intermittant Pneumatic CD Resuscitation Status: CPR: Attempt Resuscitation Adeola Benton DO Mar 06, 2017 13:59
[2017-03-06] MEDS: Ondansetron 2 mg/mL 2 mL Inj IVPUSH PRN (18:14)
--- NOTE | 2017-03-06 18:31 | NUR ---
Shower/PRN medications Pt. was able to get in the shower this morning and clean up. She has been going longer without PRN oxycodone and lorazepam today, but still needing both PRN. Encouraged pt. to ambulate and try not to nap, because pt. reported not being able to sleep last night.
[2017-03-06] MEDS: DEXTROSE 5% IV SCH (20:23)
[2017-03-06] MEDS: NAFCILLIN IV SCH (20:23)
[2017-03-07] VITALS (10 sets, daily range): BP systolic 104–123; BP diastolic 70–83; PULSE 91–114; RESP 16–22; O2SAT 95–98
[2017-03-07] MEDS ORDERED: Albuterol 2.5 mg/3 mL Inhalation Solution NEB PRN (01:14)
[2017-03-07 04:52] LABS: BASOPHILS % (AUTO) 1.3 % (0-3); EOSINOPHILS % (AUTO) 2.8 % (0-5); MONOCYTES % (AUTO) 7.3 % (4-12); Mean Corpuscular Volume 94.7 fL (81-100); NEUTROPHILS % (AUTO) 59.4 % (40-74); Platelet Count 320 bil/L (150-400)
--- NOTE | 2017-03-07 05:22 | NUR ---
NOC Fever Pt had an episode of fever around 2200. Tylenol administered PRN. Pt's fever went down to 36.8. IV ABx administered as ordered. HS meds administered as schedule. Reports of having shoulder and rib pain. Denies chest pain, sob n/v. Intentional hourly rounding done. Continuing to monitor.
--- NOTE | 2017-03-07 08:38 | NUR ---
Social Work-continued d/c planning: Data:EMR Reviewed. Pt is on day 18 of hospitalization for Sepsis per H&P. Pt is medically stable, but needs to remain at [facility] for course of IV abx. Referral has been made to [facility]. ASAF from [facility] has seen pt and pt is now declining services stating she just wants to go to [facility] for Methadone and resources have been provided. SW will continue to follow. Assessment:pt who will need group home IV abx. Plan:Referral made to [facility] vs remain at [facility] for remainder of IV abx. [facility] will continue to follow. BINA Sanchez Addendum: 03/07/17 at 1637 by GARTH JACKSON PEYTON spoke with UR specialist and requested she followed up with [facility] today to determine status of swing bed for pt. Pt requesting to speak with [facility]. Pt would like information about [facility] and applying for disability, [facility]YTON has provided her with this information. [facility] will continue to follow. BINA Sanchez
[2017-03-07] MEDS: lamoTRIgine 25 mg Tablet PO SCH (08:44)
[2017-03-07] MEDS: Potassium Chloride 20 mEq SR Tablet PO SCH ×2 (08:45→17:33)
[2017-03-07] MEDS: oxyCODONE 1 mg/mL 5 mL Liquid PO PRN ×3 (08:46→23:49)
[2017-03-07] MEDS: guaiFENesin 600 mg ER12 Tablet PO SCH ×2 (08:55→20:54)
--- NOTE | 2017-03-07 15:40 | PCM.PNMED ---
Subjective Date of Service Mar 07, 2017 Subjective Patient was seen and examined at bedside today. Patient denies any chest pain, shortness of breath, nausea, vomiting. Patient states that her diarrhea is improving and she is doing her best to adhere more closely to the brat diet. Overnight events: None Exam Vital Signs Vital Sign - Last Date Time Temp Pulse Resp B/P Pulse Ox O2 Delivery O2 Flow Rate FiO2 03/07/17 15:21 102 18 96 Room Air 03/07/17 12:42 37.2 106/71 03/01/17 16:32 4.00 Intake and Output 03/06/17 03/06/17 03/07/17 Cumulative From/Thru 15:00 23:00 07:00 02/16/17 23:36 - 03/07/17 06:07 Intake Total 1377 ml 458 ml 90830 ml Output Total 86723 ml Balance 1377 ml 458 ml 74620 ml Intake Oral 800 ml 50964 ml IV Total 577 ml 458 ml 01857 ml Tube Feeding 400 ml Platelets 490 ml Tube Irrigant 30 ml Output Urine Total 83465 ml Stool Total 1525 ml Urine/Stool Mix 6450 ml # Voids 3 19 # Bowel Movements 17 Exam Physical Exam: GEN: Patient was awake, alert, responding appropriately to questions HEENT: Pupils equal round and reactive to light, extraocular eye muscles intact , Neck soft supple, trachea midline, nomocephalic/atraumatic CV: +S1/S2, regular rate and rhythm, no murmurs auscultated Respiratory: CTAB, no wheezes, rales, rhonchi GI: +bowel sounds x4, soft, compressible, nontender to palpation EXT: no clubbing, cyanosis, edema Neuro: Cranial nerves II-XII grossly intact Psych: mood and affect were appropriate IVs and Medications Medications Reviewed: Medications were reviewed in detail Lab and Diagnostics Result Diagram: 03/07/1741203/07/17412 X-Rays, CTs and MRIs . X-RAY CHEST ONE VIEW, PORTABLE IMPRESSION: Diffuse bilateral patchy air space opacities suspicious for pneumonia. Dictated by: Delon LEYVA Interpreted: Jose Enrique York MD on 02/17/2017 X-RAY CHEST ONE VIEW, PORTABLE IMPRESSION: 1. Right internal jugular central venous catheter is in expected position. No pneumothorax. 2. Bilateral septic emboli as before. Dictated by: Lance Dan M.D. on 02/17/2017 CT CHEST, ABDOMEN AND PELVIS WITHOUT CONTRAST IMPRESSION: 1. Multiple bilateral cavitary lesions in the lungs consistent with recurrent septic emboli. The differential for these imaging findings includes inflammatory processes as well as metastatic disease but these are less likely given patient's prior history of septic emboli. 2. Slight asymmetric appearance of the right kidney with minimal perinephric stranding. However, evaluation for pyelonephritis is limited in the absence of intravenous contrast. Recommend correlation clinically. There is no hydronephrosis. 3. Mildly prominent bladder wall thickness likely due to incomplete distention. Recommend correlation with urinalysis. Dictated by: Sulaiman Haines M.D. on 02/17/2017 CT BRAIN WITHOUT CONTRAST IMPRESSION: 1. No acute intracranial abnormality. Dictated by: Sulaiman Haines M.D. on 02/17/2017 Cardiac Echo Impressions . Echocardiogram Report Name: RAJANI ALSTON JStudy Mirza e: 02/17/2017 Height : 63 in Hospital Exam Location: [facility] Weight : 155 lb Gender: Female BSA: 1 .7 m2 : 1990 Age: 26 yrs BP: 10 1/64 mmHg Reason For Study: ENDOCARDITIS/SEPSIS Ordering Physician: Stevie Jean Performed By: Hanny Wisdom Referring Physician: CHAPARRO BULL Interpretation Summary Sinus tachycardia. Normal LV size and wall thickness. There is normal LV wall motion and systolic function. EF is 55-60%. There is severe RV dilation with normal wall motion. There is severe RA dilation. There is a 2.5x0.9 cm vegetation on the downstream side of the tricuspid valve leaflet. There is moderate tricuspid regurgittation. There is normal valve structure and function otherwise. Estimated PASP is 42 mm Hg assuming RA pressure of 3 mm Hg. Compared to prior study 08/04/2016 sinus tachycardia is new. RV dilation is new. Vegetation on the tricuspid valve is old. Tricuspid regurgitation is old Assessment & Plan Pt is a 26 y/o female w/ a hx of tricuspid MSSA endocarditis, ongoing IVDA ( meth and heroin), septic PE, pneumonia, presenting to the ED c/o dyspnea. Acute endocarditis; present on admission; ongoing -Sepsis and shock both resolved -White count normal, procal trending down -Daptomycin was discontinued 02/28/17 -Continue nafcillin through April 04 -Patient will remain here in the hospital until completion due to high risk of relapse -Concerned about persistent fever; will repeat Chest CT non contrast shows either lymphadenopathy versus possible neoplastic disease -Continue azithromycin 500 mg daily and linezolid 600 mg twice a day for possible pneumonia patient seems to be improving no longer has coarse breath sounds or wheezes/Rales/rhonchi -Continue DuoNeb's scheduled -We will continue to monitor possibly consult pulmonology for further workup if no improvement however this is most likely secondary to the patient's current disease process of endocarditis with septic emboli Severe acute kidney injury. Present on admission. Resolving - Likely secondary to sepsis and hypotension and staphyloccocal glomerulonephritis. - C3/C4 decrease indicating likely infectious glomerulonephritis - Creatinine initially greater than 8; still trending down currently 1.29 - Nephrology consulted Dr. Patel (signed off with the patient on 02/29/2016) - Avoid nephrotoxic agents. Opioid dependence, poa, chronic. -The patient is tearful and frustrated that she is not receiving higher doses of opioid analgesics. Patient is demonstrating opioid seeking behaviors. She does not have an outpatient prescription for opioid analgesics. She is receiving oxycodone 5 mg every 4 hours when necessary. Nurses have observed the patient to pocket her oxycodone and administer them IV to herself. She was counseled regarding unacceptability this behavior. - Patient was counseled that increasing her opioid dependence with inpatient opioid medications, especially parenteral, of adverse long-term consequences for her health. - Current pain complaints consist of a chronic musculoskeletal complaints for which opioids are not indicated, and sepsis related rigors and musculoskeletal complaints which may be managed with antipyretics and nonsteroidal analgesics. - She should not receive additional opioids - Ativan 1 mg every 4 hours and will start decreasing Roxicodone - Patient remains on gabapentin 600 mg twice a day; home doses 3 times a day History of seizure disorder. POA and stable. -Patient states she is not on Lamictal at home -Titrating down Lamictal currently at 25 mg twice a day continue to titrate down 25 mg daily -Continuing topiramate, at 100 mg twice a day Acute blood loss anemia; present on admission; active -Patient's hemoglobin this morning was 5.9 due to her disconnecting her central line to go the bathroom, with significant blood loss back through the line (02/26) -2 units PRBCs ordered stat and given on -Patient's H&H is currently dropping we will continue to monitor and transfuse as necessary Acute sepsis with septic shock. Present on admission; resolved - Pt presented with temp 37.9, HR 145, BP 86/52, WBC 15.4 with left shift, lactic of 2.6. MSSA endocarditis with secondary bacteremia with persistently positive blood cultures at 5 days; CT positive for mycotic pulmonary embolism. Bcx negative since 02/21. Procal is down trending - Off norepinephrine for the time being; maintain mean arterial pressure of 65 mmHg - Discontinue daptomycin - Continue nafcillin through April 04 - Continue to follow blood cultures and CBC - Continue to use central line; will consider PICC if this is necessary for the patient to be transferred to [facility] Persistent Diarrhea; present on admission; resolving -Patient continues to have diarrhea which was present when she initially presented and then decrease with loperamide -Could be a sign of opiate withdrawal although she has been on Roxicodone -Continue Lomotil daily -Continue Florastor twice a day -Previous C. difficile was negative; repeat C. 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 Present on admission. Ongoing - CT chest showed septic pulmonary emboli bilaterally - Echocardiogram demonstrates a tricuspid vegetation, moderate tricuspid regurg , right sided heart failure - Dr. Patel and Dr. Riddle indicate that the patient is not a candidate is not a candidate at the moment and will require 6 weeks of antibiotics in 6 months off heroin -Patient's attempted injection of Roxicodone into her central line that raises the question whether she will meet surgical criteria for valve replacement. -Continue Eliquis for anticoagulation Left shoulder pain, acute on chronic. Present on admission. Resolving - Pt has history of septic joint of the left sternoclavicular joint; has been seen by orthopedics during the stay - Aspirate cell count, Gram stain, culture ordered 02/22/17 - Physical therapy to work with shoulder Hypokalemia, not present on admission. Matthew value of 2.7. -Supplement potassium orally Right ventricular heart failure with anasarca; present on admission; resolving -Severe right ventricular dilation and tricuspid regurg, with pulmonary hypertension likely secondary to pulmonary embolisms -Cardiology was consulted no longer following at this time continue to treat with antibiotics Septic Encephalopathy; not present on admission; resolved. Patient had hallucinations, got out of bed and stooled on the floor. Likely related to either sepsis or combination of medications including morphine, Vistaril, and Ativan. - Stopped Vistaril except at bedtime, stop morphine, decrease Ativan - Resolved with reduction in pain medication - Currently on Seroquel which she apparently takes at home as well per her report Severe thrombocytopenia, acute. Present on admission. Resolved - Platelets reached as low as 31, due to sepsis - Platelets currently with in normal range Anion gap metabolic acidosis and lactic acidosis, acute. Present on admission, resolved. Secondary to lactic acidosis and PRISCILA. Gap 24. pH 7.26, pCO2 32.6, pO2 110, bicarb 14.2. - Resolved Hypovolemic Hyponatremia, acute. Present on admission. Resolved - Na 126 on admission. Pt receiving NS @ 150 ml/hr - Resolved History of IV drug abuse. POA and Active with heroin during the week prior to arrival. - Hepatitis C negative - HIV negative History of tobacco dependence. By mouth and active - Nicotine patch ordered Disposition: Antibiotics to continue through April 04. Patient will remain in-house for transfer to possible [facility] [place]. The patient is still running fevers and she is currently now being treated for pneumonia. The patient was encouraged to continue to adhere to the brat diet at this time in order to help resolve her diarrhea. The patient's C. difficile cultures have been negative. The patient does continue to run intermittent fevers daily which tend to respond to Tylenol, this is most likely secondary to her septic emboli and endocarditis. We will continue to monitor and treat. GI Prophylaxis: H2 susan VTE Prophylaxis: Other (Pt has thrombocytopenia - no DVT prophylaxis for now.) VTE Mechanical Devices: Intermittant Pneumatic CD Resuscitation Status: CPR: Attempt Resuscitation Adeola Benton DO Mar 07, 2017 15:40
--- NOTE | 2017-03-07 18:09 | NUR ---
Fever/Tremulous Pt tremulous this afternoon, temp 100 at the time, Pt had also reported generalized pain and anxiety at this time, Pt did not appear anxious, Pt given PRN lorazepam and liquid oxycodone at this time. Pt also given PRN tylenol and additional blankets. Pt's tremor subsided and Pt reported not feeling cold any longer.
[2017-03-07] MEDS ORDERED: SODIUM CHLORIDE 0.9% IV SCH (21:00)
[2017-03-07] MEDS ORDERED: NAFCILLIN IV SCH (21:00)
[2017-03-08] VITALS (8 sets, daily range): BP systolic 105–114; BP diastolic 67–76; PULSE 93–111; RESP 16–18; O2SAT 95–100
--- NOTE | 2017-03-08 04:51 | NUR ---
Pain: Pt c/o shoulder/generalized pain 02/24, medication administered; effective. Pt denied chest pain, afebrile. Slept off/on throughout the night, pleasant and cooperative with care.
[2017-03-08] MEDS: oxyCODONE 1 mg/mL 5 mL Liquid PO PRN ×4 (06:10→18:40)
--- NOTE | 2017-03-08 09:09 | NUR ---
[facility] SWING BED FOLLOW UP : Faxed updated clinicals to [facility] and asked about formal acceptance for this patient. Does she meet the criteria and are the willing to accept once a bed comes open. Updated [facility]
[2017-03-08] MEDS: guaiFENesin 600 mg ER12 Tablet PO SCH ×2 (09:19→21:26)
[2017-03-08] MEDS: Potassium Chloride 20 mEq SR Tablet PO SCH ×2 (09:19→18:32)
[2017-03-08] MEDS: lamoTRIgine 25 mg Tablet PO SCH (09:20)
--- NOTE | 2017-03-08 11:27 | NUR ---
NUTRITION FOLLOW UP: ASSESS: 26 YO F admitted to CCU for sepsis, PRISCILA with infectious glomerulonephritis, and endocarditis. Pt po intake has improved over the past 3 days with pt eating 75-100% of most meals. Per notes, pt states that her diarrhea is improving and pt is trying to follow the BRAT diet. PMHX: Endocarditis, IVDA (meth and heroine), PE, PNA LABS: Reviewed. Cr 1.28, Alb 3.4 MEDS: Reviewed. GI: BM x 1 (03/07) CURRENT WT: 77.5 kg, BMI 30.3 kg/m2, Admit wt: 70.3 kg, IBW: 52.3 kg DIET: General, Ensure at lunch, 2 milks per tray. PO intake 75-100% most meals x 3 days. ESTIMATED NEEDS: PRISCILA Calories: 2535-8924 kcal/day (25-30 kcal/kg BW) Protein: 55-70 g/day (0.8-1.0 g/kg BW) NUTRITION DIAGNOSIS: 1.) Inadequate oral intake related to chronic disease as evidence by reported weakness prior to admit and history of endocarditis and IVD use.---IMPROVING. NUTRITION INTERVENTION: 1.) Continue current diet and supplement/snacks as ordered. 2.) On 02/[address] with pt about foods that she likes/dislikes and bland foods that will not exacerbate her nausea. Pt does not like Magic Cups or Mighty shakes because they are too chalky/she says she can taste the added protein. She loves milk so will send 2 cartons of whole milk on all trays. She likes japanese yogurt (which the hospital does not have) so encouraged pt to call her mom and have her mom bring in the yogurt that she likes and any other food that the pt prefers. She agreed to try Vanilla Ensure on L tray. Discussed how she can dilute the Ensure with milk so that it isn't so chalky. Discussed adding extra butter and gravy to foods to sneak in more kcal. Discussed eating smaller, more frequent meals when appetite is down. Encourage pt to try to eat at least 50% of all meals. Pt expressed understanding and stated that she would try. MONITOR/EVALUATE: PO intake, weight, GI, labs, nutrition status. Follow per low nutrition risk guidelines.
--- NOTE | 2017-03-08 12:26 | PROG NOTE ---
[address] [address] PROGRESS NOTE PATIENT: RAJANI ALSTON : 1990 MR#: [id number] ADMIT: 02/17/2017 JOB ID: [id number] DATE: 03/08/2017 INFECTIOUS DISEASE FOLLOWUP NOTE: REASON FOR FOLLOWUP: Tricuspid valve endocarditis with multiple septic emboli. INTERVAL HISTORY: I have not seen the patient in a week as I have been out of town. In my absence the patient was started on azithromycin and linezolid in addition to her ongoing nafcillin therapy for MSSA endocarditis with septic emboli. I am not certain exactly how this happened, though I suspect it was concern about her pulmonary infiltrates which we know to be septic emboli from endocarditis. In any event the patient reports she continues to have continued low-grade fevers and occasional chills and sweats but gradually is improving. She states that the continual nature of her 12 g per day continuous infusion nafcillin therapy limits her ability to walk, take a shower, and do other activities, and this is one of the reason she has not been getting out of bed for weeks now. We discussed possible remedies to that problem. She is not having significant headaches. She notes that her pleuritic chest pain continues, but it is improving, and she has a minimal cough. No fevers or chills today though it has been a problem right up to including yesterday. No focal neurologic complaints. PHYSICAL EXAMINATION: Reveals an afebrile woman. She was 38.2 yesterday evening and on the was 38.5. She continues to have intermittent fevers on really an ongoing basis throughout this long hospital stay. Pulse 106, respiratory rate 18, blood pressure 105/71. She is saturating well on room air and overall she looks a lot better than when I last saw her a week ago. Note that she is now in her hospital day. She is awake and alert. Sinuses nontender. Oral cavity negative. Lungs: Sitting up posteriorly much clearer than before, with essentially no rales or rhonchi at this point. Cardiac tones still regular rate and rhythm, with no murmur. Abdomen benign. No skin rash noted. She has a central line in the left neck which appears benign. LABORATORIES: Labs include normal white count yesterday 9000 with normal diff. Her creatinine is 1.28 and slowly improving. Recall that at the start of this admission some 20 days ago her creatinine was above 8, so this is a dramatic turnaround from that perspective. LFTs normal. Procalcitonin 0.69 and I see no value to following procalcitonin any longer in this patient. Urinalysis without white cells. C3 and C4 have normalized. Micro studies include negative followup blood cultures from February 25. There have not been any blood cultures now for a very long period of time. Stool for C. diff on the was negative. IMPRESSION: This is an unfortunate young woman who was hospitalized around [place] last year with a very severe tricuspid valve endocarditis with septic pulmonary emboli and a septic left sternoclavicular joint, all due to MSSA. After appropriate treatment the patient eventually did well and was discharged to drug rehabilitation. She did well there for a few months, then relapsed, and now is back with MSSA tricuspid valve endocarditis with septic pulmonary emboli. Note that this is a different MSSA based on the antibiogram. She has had a stormy course throughout this very long 20 day hospital stay with continuing fevers as well as the acute renal failure at the time of admission. Her white blood count is now completely normal, though, and her kidneys are much improved. Today she looks much better than when I saw her seven days ago just in terms of her overall appearance, and her lungs are now completely clear, so I think we are making progress but I remain concerned about her continuing stuttering low-grade fever course which I think is all on the basis of endocarditis and her extensive pulmonary septic emboli. RECOMMENDATIONS: 1. We will check two blood cultures today. 2. Will go ahead and stop both the linezolid and the azithromycin today as I see no indication for either one in this patient with MSSA. 3. Will continue closely follow this patient with you. If her fevers continue I think a repeat transthoracic echo would be indicated. Thank you very much.
[2017-03-08] MEDS: Nafcillin Inj 2,000 MG in Dextrose 5% Minibag Plus 100 ML IV SCH ×3 (12:50→20:00)
[2017-03-08] MEDS ORDERED: 0.9% Sodium Chloride 250 ML ONE (13:55)
--- NOTE | 2017-03-08 14:18 | PCM.PNMED ---
Subjective Date of Service Mar 08, 2017 Subjective Patient was seen and examined at bedside today. Patient denies any chest pain, shortness of breath, nausea, vomiting. Patient states that her diarrhea has significantly improved and she is starting to feel a little bit better. The patient does express a desire for inpatient chemical dependency rehabilitation if possible, but is aware that this may not be possible due to her previous history of noncompliance. Overnight events: None Exam Vital Signs Vital Sign - Last Date Time Temp Pulse Resp B/P Pulse Ox O2 Delivery O2 Flow Rate FiO2 03/08/17 10:35 106 03/08/17 10:29 Supplement Oxygen 03/08/17 09:29 37.3 18 105/71 96 Intake and Output 03/07/17 03/07/17 03/08/17 Cumulative From/Thru 15:00 23:00 07:00 02/16/17 23:36 - 03/08/17 06:19 Intake Total 450 ml 2144 ml 800 ml 70745 ml Output Total 23279 ml Balance 450 ml 2144 ml 800 ml 26429 ml Intake Oral 450 ml 1600 ml 800 ml 03354 ml IV Total 544 ml 41707 ml Tube Feeding 400 ml Platelets 490 ml Tube Irrigant 30 ml Output Urine Total 85128 ml Stool Total 1525 ml Urine/Stool Mix 6450 ml # Voids 1 3 2 25 # Bowel Movements 1 18 Exam Physical Exam: GEN: Patient was awake, alert, responding appropriately to questions HEENT: Pupils equal round and reactive to light, extraocular eye muscles intact , Neck soft supple, trachea midline, nomocephalic/atraumatic, left IJ in place CV: +S1/S2, regular rate and rhythm, no murmurs auscultated Respiratory: CTAB, no wheezes, rales, rhonchi GI: +bowel sounds x4, soft, compressible, nontender to palpation EXT: no clubbing, cyanosis, edema Neuro: Cranial nerves II-XII grossly intact Psych: mood and affect were appropriate IVs and Medications Medications Reviewed: Medications were reviewed in detail Lab and Diagnostics Result Diagram: 03/07/1741203/07/17412 X-Rays, CTs and MRIs . X-RAY CHEST ONE VIEW, PORTABLE IMPRESSION: Diffuse bilateral patchy air space opacities suspicious for pneumonia. Dictated by: Delon LEYVA Interpreted: Jose Enrique York MD on 02/17/2017 X-RAY CHEST ONE VIEW, PORTABLE IMPRESSION: 1. Right internal jugular central venous catheter is in expected position. No pneumothorax. 2. Bilateral septic emboli as before. Dictated by: Lance Dan M.D. on 02/17/2017 CT CHEST, ABDOMEN AND PELVIS WITHOUT CONTRAST IMPRESSION: 1. Multiple bilateral cavitary lesions in the lungs consistent with recurrent septic emboli. The differential for these imaging findings includes inflammatory processes as well as metastatic disease but these are less likely given patient's prior history of septic emboli. 2. Slight asymmetric appearance of the right kidney with minimal perinephric stranding. However, evaluation for pyelonephritis is limited in the absence of intravenous contrast. Recommend correlation clinically. There is no hydronephrosis. 3. Mildly prominent bladder wall thickness likely due to incomplete distention. Recommend correlation with urinalysis. Dictated by: Sulaiman Haines M.D. on 02/17/2017 CT BRAIN WITHOUT CONTRAST IMPRESSION: 1. No acute intracranial abnormality. Dictated by: Sulaiman Haines M.D. on 02/17/2017 Cardiac Echo Impressions . Echocardiogram Report Name: RAJANI ALSTON JStudy Mirza e: 02/17/2017 Height : 63 in Hospital Exam Location: [facility] Weight : 155 lb Gender: Female BSA: 1 .7 m2 : 1990 Age: 26 yrs BP: 10 1/64 mmHg Reason For Study: ENDOCARDITIS/SEPSIS Ordering Physician: Stevie Jean Performed By: Hanny Wisdom Referring Physician: CHAPARRO BULL Interpretation Summary Sinus tachycardia. Normal LV size and wall thickness. There is normal LV wall motion and systolic function. EF is 55-60%. There is severe RV dilation with normal wall motion. There is severe RA dilation. There is a 2.5x0.9 cm vegetation on the downstream side of the tricuspid valve leaflet. There is moderate tricuspid regurgittation. There is normal valve structure and function otherwise. Estimated PASP is 42 mm Hg assuming RA pressure of 3 mm Hg. Compared to prior study 08/04/2016 sinus tachycardia is new. RV dilation is new. Vegetation on the tricuspid valve is old. Tricuspid regurgitation is old Assessment & Plan Pt is a 26 y/o female w/ a hx of tricuspid MSSA endocarditis, ongoing IVDA ( meth and heroin), septic PE, pneumonia, presenting to the ED c/o dyspnea. Acute endocarditis; present on admission; ongoing -Sepsis and shock both resolved -White count normal, procal trending down -Daptomycin was discontinued 02/28/17 -Continue nafcillin through April 04 -Patient will remain here in the hospital until completion due to high risk of relapse -Concerned about persistent fever; will repeat Chest CT non contrast shows either lymphadenopathy versus possible neoplastic disease 03/02/17 -Continue azithromycin 500 mg daily and linezolid 600 mg twice a day for possible pneumonia patient seems to be improving no longer has coarse breath sounds or wheezes/Rales/rhonchi (last dose 03/08/2017) -Continue DuoNeb's when necessary -We will continue to monitor possibly consult pulmonology for further workup if no improvement however this is most likely secondary to the patient's current disease process of endocarditis with septic emboli Severe acute kidney injury. Present on admission. Resolving - Likely secondary to sepsis and hypotension and staphyloccocal glomerulonephritis. - C3/C4 decrease indicating likely infectious glomerulonephritis - Creatinine initially greater than 8; still trending down currently 1.28 - Nephrology consulted Dr. Patel (signed off with the patient on 02/29/2016) - Avoid nephrotoxic agents. Opioid dependence, poa, chronic. -The patient is tearful and frustrated that she is not receiving higher doses of opioid analgesics. Patient is demonstrating opioid seeking behaviors. She does not have an outpatient prescription for opioid analgesics. She is receiving oxycodone 5 mg every 4 hours when necessary. Nurses have observed the patient to pocket her oxycodone and administer them IV to herself. She was counseled regarding unacceptability this behavior. - Patient was counseled that increasing her opioid dependence with inpatient opioid medications, especially parenteral, of adverse long-term consequences for her health. - Current pain complaints consist of a chronic musculoskeletal complaints for which opioids are not indicated, and sepsis related rigors and musculoskeletal complaints which may be managed with antipyretics and nonsteroidal analgesics. - She should not receive additional opioids - Ativan 1 mg every 4 hours and will start decreasing Roxicodone - Patient remains on gabapentin 600 mg twice a day; home doses 3 times a day History of seizure disorder. POA and stable. -Patient states she is not on Lamictal at home -Titrating down Lamictal currently at 25 mg a day continue to titrate down will discontinue most likely tomorrow -Continuing topiramate, at 100 mg twice a day Acute blood loss anemia; present on admission; active -Patient's hemoglobin this morning was 5.9 due to her disconnecting her central line to go the bathroom, with significant blood loss back through the line (02/26) -2 units PRBCs ordered stat and given on -Patient's H&H is currently dropping we will continue to monitor and transfuse as necessary Acute sepsis with septic shock. Present on admission; resolved - Pt presented with temp 37.9, HR 145, BP 86/52, WBC 15.4 with left shift, lactic of 2.6. MSSA endocarditis with secondary bacteremia with persistently positive blood cultures at 5 days; CT positive for mycotic pulmonary embolism. Bcx negative since 02/21. Procal is down trending - Off norepinephrine for the time being; maintain mean arterial pressure of 65 mmHg - Discontinue daptomycin - Continue nafcillin through April 04 - Continue to follow blood cultures and CBC - Continue to use central line; will consider PICC if this is necessary for the patient to be transferred to [facility] [place] still waiting to hear and response Persistent Diarrhea; present on admission; resolving -Patient continues to have diarrhea which was present when she initially presented and then decrease with loperamide -Could be a sign of opiate withdrawal although she has been on Roxicodone -Continue Lomotil daily -Continue Florastor twice a day -Previous C. difficile was negative; repeat C. 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 Present on admission. Ongoing - CT chest showed septic pulmonary emboli bilaterally - Echocardiogram demonstrates a tricuspid vegetation, moderate tricuspid regurg , right sided heart failure - Dr. Patel and Dr. Riddle indicate that the patient is not a candidate is not a candidate at the moment and will require 6 weeks of antibiotics in 6 months off heroin -Patient's attempted injection of Roxicodone into her central line that raises the question whether she will meet surgical criteria for valve replacement. -Continue Eliquis for anticoagulation Left shoulder pain, acute on chronic. Present on admission. Resolving - Pt has history of septic joint of the left sternoclavicular joint; has been seen by orthopedics during the stay - Aspirate cell count, Gram stain, culture ordered 02/22/17 - Physical therapy to work with shoulder Hypokalemia, not present on admission. Matthew value of 2.7. -Supplement potassium orally Right ventricular heart failure with anasarca; present on admission; resolving -Severe right ventricular dilation and tricuspid regurg, with pulmonary hypertension likely secondary to pulmonary embolisms -Cardiology was consulted no longer following at this time continue to treat with antibiotics Septic Encephalopathy; not present on admission; resolved. Patient had hallucinations, got out of bed and stooled on the floor. Likely related to either sepsis or combination of medications including morphine, Vistaril, and Ativan. - Stopped Vistaril except at bedtime, stop morphine, decrease Ativan - Resolved with reduction in pain medication - Currently on Seroquel which she apparently takes at home as well per her report Severe thrombocytopenia, acute. Present on admission. Resolved - Platelets reached as low as 31, due to sepsis - Platelets currently with in normal range Anion gap metabolic acidosis and lactic acidosis, acute. Present on admission, resolved. Secondary to lactic acidosis and PRISCILA. Gap 24. pH 7.26, pCO2 32.6, pO2 110, bicarb 14.2. - Resolved Hypovolemic Hyponatremia, acute. Present on admission. Resolved - Na 126 on admission. Pt receiving NS @ 150 ml/hr - Resolved History of IV drug abuse. POA and Active with heroin during the week prior to arrival. - Hepatitis C negative - HIV negative History of tobacco dependence. By mouth and active - Nicotine patch ordered Disposition: Antibiotics to continue through April 04. Patient will remain in-house for transfer to [facility] pending social work. The patient's case was discussed today with infectious disease (Dr. Lee) who agrees that nafcillin is still the course that the patient needs to take and the fevers are most likely secondary to her current infection. There is a possibility that her central line could potentially be infected as it was placed while the patient was still bacteremic. This is less likely and a more likely cause would be secondary to her current septic emboli. We will continue to monitor her. Still awaiting an answer from [facility] in order to find out if the patient is stable for transfer or would need to have a PICC line placed instead of having the central line IJ. GI Prophylaxis: H2 susan VTE Prophylaxis: Other (Pt has thrombocytopenia - no DVT prophylaxis for now.) VTE Mechanical Devices: Intermittant Pneumatic CD Resuscitation Status: CPR: Attempt Resuscitation Adeola Benton DO Mar 08, 2017 14:18
[2017-03-09] VITALS (7 sets, daily range): BP systolic 109–116; BP diastolic 72–78; PULSE 93–112; RESP 18–21; O2SAT 96–100
[2017-03-09] MEDS: Nafcillin Inj 2,000 MG in Dextrose 5% Minibag Plus 100 ML IV SCH ×6 (00:06→20:08)
--- NOTE | 2017-03-09 02:11 | NUR ---
Transfer of care: Report given to Shannan Andino RN. This pt c/o of ongoing L shoulder pain, medication administered, pt would sleep after administration. RN encouraged pt to ambulate in the hallways, pt refused, stated she would walk tomorrow. No s/s of distress noted, afebrile this shift. Pleasant and cooperative with care. Addendum: 03/09/17 at 0225 by MARVA KNIGHT RN Lizeth pad provided to help with shoulder pain.
[2017-03-09] MEDS: oxyCODONE 1 mg/mL 5 mL Liquid PO PRN ×3 (03:42→18:21)
[2017-03-09] MEDS: guaiFENesin 600 mg ER12 Tablet PO SCH ×2 (08:40→20:08)
[2017-03-09] MEDS: lamoTRIgine 25 mg Tablet PO SCH (08:41)
[2017-03-09] MEDS: Potassium Chloride 20 mEq SR Tablet PO SCH ×2 (08:41→16:32)
--- NOTE | 2017-03-09 11:34 | NUR ---
[facility] : Called and left message for Elisa Mcclendon in the swing bed unit, looking for formal acceptance of denial Updated REGIONAL DIRECTOR
[2017-03-09 12:36] LABS: Mean Corpuscular Hemoglobin 30.7 pg (27.0-35.0); Mean Corpuscular Volume 93.3 fL (81-100)
--- NOTE | 2017-03-09 15:03 | PCM.PNMED ---
Subjective Date of Service Mar 09, 2017 Subjective Patient was seen and examined at bedside today. Patient denies any chest pain, shortness of breath, nausea, vomiting, diarrhea. The patient appears significantly improved each day. The patient has been afebrile for the last 24 hours. It is important to continue to encourage the patient to eat all of her meals in a chair and to get up and walk around daily. Overnight events: None Exam Vital Signs Vital Sign - Last Date Time Temp Pulse Resp B/P Pulse Ox O2 Delivery O2 Flow Rate FiO2 03/09/17 14:11 36.7 102 18 110/74 98 Room Air Intake and Output 03/08/17 03/08/17 03/09/17 Cumulative From/Thru 15:00 23:00 07:00 02/16/17 23:36 - 03/09/17 04:40 Intake Total 1425 ml 1427 ml 11453 ml Output Total 925 ml 34890 ml Balance 500 ml 1427 ml 84938 ml Intake Oral 1425 ml 67291 ml IV Total 1427 ml 81211 ml Tube Feeding 400 ml Platelets 490 ml Tube Irrigant 30 ml Output Urine Total 925 ml 17496 ml Stool Total 1525 ml Urine/Stool Mix 6450 ml # Voids 25 # Bowel Movements 2 20 Exam Physical Exam: GEN: Patient was awake, alert, responding appropriately to questions HEENT: Pupils equal round and reactive to light, extraocular eye muscles intact , Neck soft supple, trachea midline, nomocephalic/atraumatic CV: +S1/S2, regular rate and rhythm, no murmurs auscultated Respiratory: CTAB, no wheezes, rales, rhonchi GI: +bowel sounds x4, soft, compressible, nontender to palpation EXT: no clubbing, cyanosis, edema Neuro: Cranial nerves II-XII grossly intact Psych: mood and affect were appropriate IVs and Medications Medications Reviewed: Medications were reviewed in detail Lab and Diagnostics Result Diagram: 03/09/17 1205 03/09/17 1205 X-Rays, CTs and MRIs . X-RAY CHEST ONE VIEW, PORTABLE IMPRESSION: Diffuse bilateral patchy air space opacities suspicious for pneumonia. Dictated by: Delon LEYVA Interpreted: Jose Enrique York MD on 02/17/2017 X-RAY CHEST ONE VIEW, PORTABLE IMPRESSION: 1. Right internal jugular central venous catheter is in expected position. No pneumothorax. 2. Bilateral septic emboli as before. Dictated by: Lance Dan M.D. on 02/17/2017 CT CHEST, ABDOMEN AND PELVIS WITHOUT CONTRAST IMPRESSION: 1. Multiple bilateral cavitary lesions in the lungs consistent with recurrent septic emboli. The differential for these imaging findings includes inflammatory processes as well as metastatic disease but these are less likely given patient's prior history of septic emboli. 2. Slight asymmetric appearance of the right kidney with minimal perinephric stranding. However, evaluation for pyelonephritis is limited in the absence of intravenous contrast. Recommend correlation clinically. There is no hydronephrosis. 3. Mildly prominent bladder wall thickness likely due to incomplete distention. Recommend correlation with urinalysis. Dictated by: Sulaiman Haines M.D. on 02/17/2017 CT BRAIN WITHOUT CONTRAST IMPRESSION: 1. No acute intracranial abnormality. Dictated by: Sulaiman Haines M.D. on 02/17/2017 Cardiac Echo Impressions . Echocardiogram Report Name: RAJANI ALSTON JStudy Mirza e: 02/17/2017 Height : 63 in Hospital Exam Location: [facility] Weight : 155 lb Gender: Female BSA: 1 .7 m2 : 1990 Age: 26 yrs BP: 10 1/64 mmHg Reason For Study: ENDOCARDITIS/SEPSIS Ordering Physician: Stevie Jean Performed By: Hanny Wisdom Referring Physician: CHAPARRO BULL Interpretation Summary Sinus tachycardia. Normal LV size and wall thickness. There is normal LV wall motion and systolic function. EF is 55-60%. There is severe RV dilation with normal wall motion. There is severe RA dilation. There is a 2.5x0.9 cm vegetation on the downstream side of the tricuspid valve leaflet. There is moderate tricuspid regurgittation. There is normal valve structure and function otherwise. Estimated PASP is 42 mm Hg assuming RA pressure of 3 mm Hg. Compared to prior study 08/04/2016 sinus tachycardia is new. RV dilation is new. Vegetation on the tricuspid valve is old. Tricuspid regurgitation is old Assessment & Plan Pt is a 26 y/o female w/ a hx of tricuspid MSSA endocarditis, ongoing IVDA ( meth and heroin), septic PE, pneumonia, presenting to the ED c/o dyspnea. Acute endocarditis; present on admission; ongoing -Sepsis and shock both resolved -White count normal, procal trending down -Daptomycin was discontinued 02/28/17 -Continue nafcillin through April 04 -Patient will remain here in the hospital until completion due to high risk of relapse unless she is accepted at [facility] -Concerned about persistent fever; will repeat Chest CT non contrast shows either lymphadenopathy versus possible neoplastic disease 03/02/17 this seems to be resolving 03/09/17 -Discontinue azithromycin 500 mg daily and linezolid 600 mg twice a day for possible pneumonia patient seems to be improving no longer has coarse breath sounds or wheezes/Rales/rhonchi (last dose 03/08/2017) -Continue DuoNeb's when necessary -We will continue to monitor possibly consult pulmonology for further workup if no improvement however this is most likely secondary to the patient's current disease process of endocarditis with septic emboli Severe acute kidney injury. Present on admission. Resolving - Likely secondary to sepsis and hypotension and staphyloccocal glomerulonephritis. - C3/C4 decrease indicating likely infectious glomerulonephritis - Creatinine initially greater than 8; still trending down currently 1.11 - Nephrology consulted Dr. Patel (signed off with the patient on 02/29/2016) - Avoid nephrotoxic agents. Opioid dependence, poa, chronic. -The patient is tearful and frustrated that she is not receiving higher doses of opioid analgesics. Patient is demonstrating opioid seeking behaviors. She does not have an outpatient prescription for opioid analgesics. She is receiving oxycodone 5 mg every 4 hours when necessary. Nurses have observed the patient to pocket her oxycodone and administer them IV to herself. She was counseled regarding unacceptability this behavior. - Patient was counseled that increasing her opioid dependence with inpatient opioid medications, especially parenteral, of adverse long-term consequences for her health. - Current pain complaints consist of a chronic musculoskeletal complaints for which opioids are not indicated, and sepsis related rigors and musculoskeletal complaints which may be managed with antipyretics and nonsteroidal analgesics. - She should not receive additional opioids - Ativan 1 mg every 4 hours and will start decreasing Roxicodone - Patient remains on gabapentin 600 mg twice a day; home doses 3 times a day History of seizure disorder. POA and stable. -Patient states she is not on Lamictal at home -Titrating down Lamictal discontinue Lamictal 03/09/17 -Continuing topiramate, at 100 mg twice a day Acute blood loss anemia; present on admission; active -Patient's hemoglobin this morning was 5.9 due to her disconnecting her central line to go the bathroom, with significant blood loss back through the line (02/26) -2 units PRBCs ordered stat and given on -Patient's H&H is currently dropping we will continue to monitor and transfuse as necessary Acute sepsis with septic shock. Present on admission; resolved - Pt presented with temp 37.9, HR 145, BP 86/52, WBC 15.4 with left shift, lactic of 2.6. MSSA endocarditis with secondary bacteremia with persistently positive blood cultures at 5 days; CT positive for mycotic pulmonary embolism. Bcx negative since 02/21. Procal is down trending - Off norepinephrine for the time being; maintain mean arterial pressure of 65 mmHg - Discontinue daptomycin - Continue nafcillin through April 04 - Continue to follow blood cultures and CBC - Continue to use central line; will consider PICC if this is necessary for the patient to be transferred to [facility] still waiting to hear and response Persistent Diarrhea; present on admission; resolved 03/09/17 -Patient continues to have diarrhea which was present when she initially presented and then decrease with loperamide -Could be a sign of opiate withdrawal although she has been on Roxicodone -Continue Lomotil prn -Continue Florastor twice a day -Previous C. difficile was negative; repeat C. 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 Present on admission. Ongoing - CT chest showed septic pulmonary emboli bilaterally - Echocardiogram demonstrates a tricuspid vegetation, moderate tricuspid regurg , right sided heart failure - Dr. Patel and Dr. Riddle indicate that the patient is not a candidate is not a candidate at the moment and will require 6 weeks of antibiotics in 6 months off heroin -Patient's attempted injection of Roxicodone into her central line that raises the question whether she will meet surgical criteria for valve replacement. -Continue Eliquis for anticoagulation Left shoulder pain, acute on chronic. Present on admission. Resolving - Pt has history of septic joint of the left sternoclavicular joint; has been seen by orthopedics during the stay - Aspirate cell count, Gram stain, culture ordered 02/22/17 - Physical therapy to work with shoulder Hypokalemia, not present on admission. Matthew value of 2.7. -Supplement potassium orally Right ventricular heart failure with anasarca; present on admission; resolving -Severe right ventricular dilation and tricuspid regurg, with pulmonary hypertension likely secondary to pulmonary embolisms -Cardiology was consulted no longer following at this time continue to treat with antibiotics Septic Encephalopathy; not present on admission; resolved. Patient had hallucinations, got out of bed and stooled on the floor. Likely related to either sepsis or combination of medications including morphine, Vistaril, and Ativan. - Stopped Vistaril except at bedtime, stop morphine, decrease Ativan - Resolved with reduction in pain medication - Currently on Seroquel which she apparently takes at home as well per her report Severe thrombocytopenia, acute. Present on admission. Resolved - Platelets reached as low as 31, due to sepsis - Platelets currently with in normal range Anion gap metabolic acidosis and lactic acidosis, acute. Present on admission, resolved. Secondary to lactic acidosis and PRISCILA. Gap 24. pH 7.26, pCO2 32.6, pO2 110, bicarb 14.2. - Resolved Hypovolemic Hyponatremia, acute. Present on admission. Resolved - Na 126 on admission. Pt receiving NS @ 150 ml/hr - Resolved History of IV drug abuse. POA and Active with heroin during the week prior to arrival. - Hepatitis C negative - HIV negative History of tobacco dependence. By mouth and active - Nicotine patch ordered Disposition: Antibiotics to continue through April 04. Patient will remain in-house for transfer to possible [facility] pending social work. The patient's case was discussed today with infectious disease (Dr. Lee) who agrees that nafcillin is still the course that the patient needs to take and the fevers are most likely secondary to her current infection however the patient has been afebrile for the last 24 hours. Patient is encouraged to eat all of her meals up in a chair, shower daily, and get up and walking around as we do not want the patient to become deconditioned. This has been explained to the patient and she says she will comply. The patient has had physical therapy ordered however she continues to refuse physical therapy services. Patient is safe and able to walk on her own and encouraged to do this throughout the day. GI Prophylaxis: H2 susan VTE Prophylaxis: Other (Pt has thrombocytopenia - no DVT prophylaxis for now.) VTE Mechanical Devices: Intermittant Pneumatic CD Resuscitation Status: CPR: Attempt Resuscitation Adeola Benton DO Mar 09, 2017 15:03
--- NOTE | 2017-03-09 15:11 | NUR ---
Social Work-continued d/c planning: Data:EMR Reviewed. Pt is on day 20 of hospitalization for Sepsis per H&P. Pt is medically stable, but needs to remain at [facility] for course of IV abx. Referral has been made to [facility] Swing Bed Unit. SW requested that UR specialist follow up with [facility] today on status of Swing bed. Resources have been provided to pt for Methadone Clinic at [facility]. SW encouraged pt to call and get this setup. Alternative resources provided to pt for disability information. SW will continue to follow. Assessment:pt who will need long term care social worker IV abx. Plan:Referral made to [facility] Swing Bed unit vs remain at [facility] for remainder of IV abx. SW will continue to follow. BINA Sanchez
--- NOTE | 2017-03-09 18:34 | NUR ---
Activity/px Pt enc by , this RN, PT to amb in hallways, sit up in chair at bedside and shower QD as goals. Pt sitting up EOB for meals and ambulated x1 in hallway, tolerating activity well. Pt did shower today. PRN analgesic given for c/o generalized discomfort rating 7-8/10. IJ patent, kept TKO. Bed in lowest, locked position and call light in reach.
[2017-03-10] VITALS (7 sets, daily range): BP systolic 106–143; BP diastolic 70–90; PULSE 99–111; RESP 16–20; O2SAT 95–98
[2017-03-10] MEDS: Nafcillin Inj 2,000 MG in Dextrose 5% Minibag Plus 100 ML IV SCH ×6 (00:10→20:20)
[2017-03-10 04:33] LABS: BASOPHILS % (AUTO) 0.9 % (0-3); EOSINOPHILS % (AUTO) 2.4 % (0-5); MONOCYTES % (AUTO) 8.5 % (4-12); Mean Corpuscular Hemoglobin 29.9 pg (27.0-35.0); Mean Corpuscular Volume 93.8 fL (81-100); NEUTROPHILS % (AUTO) 62.5 % (40-74); Platelet Count 387 bil/L (150-400)
[2017-03-10] MEDS: oxyCODONE 1 mg/mL 5 mL Liquid PO PRN ×3 (04:34→17:30)
--- NOTE | 2017-03-10 06:14 | NUR ---
Pain Pt reports pain to left shoulder /, medicated pt with PO oxycodone and 1 mg IV ativan per pt request. Pt resting in bed with eyes closed after medication admin. Call light within reach, frequent rounding.
[2017-03-10] MEDS: Potassium Chloride 20 mEq SR Tablet PO SCH ×2 (08:55→17:30)
[2017-03-10] MEDS: guaiFENesin 600 mg ER12 Tablet PO SCH ×2 (08:55→20:33)
[2017-03-10] MEDS ORDERED: Sodium Chloride LOK Flush 10 mL Syringe IVFLUSH PRN ×2 (09:40)
--- NOTE | 2017-03-10 10:56 | PROG NOTE ---
[address] [address] PROGRESS NOTE PATIENT: RAJANI ALSTON : 1990 MR#: [id number] ADMIT: 02/17/2017 JOB ID: [id number] DATE: 03/10/2017 INFECTIOUS DISEASE FOLLOW UP NOTE: REASON FOR FOLLOWUP: Tricuspid valve endocarditis with septic pulmonary emboli. INTERVAL HISTORY: The patient reports that her left shoulder pain is getting worse again. Recall that when she presented with this endocarditis she had severe left shoulder pain which was evaluated by ortho. They did a joint aspiration and felt that it was definitely not infected. Subsequently her left shoulder returned to normal and is now becoming more painful again for reasons which are unclear to me as she has been receiving antibiotics now for an extended period. Additionally, the patient reports that there is now pain along the site of her left subclavian central line, though there is not inflammation but it just hurts. She has no significant shortness of breath, nausea, vomiting, diarrhea or problems with nafcillin. PHYSICAL EXAMINATION: Reveals an afebrile woman. She has now been afebrile continuously for 3-1/2 days. Current temperature 37.2, pulse 100, respiratory rate 18, blood pressure 107/73. She is saturating well on room air and appears fairly comfortable. The patient will not actively move her left shoulder which is reminiscent of her initial presentation which is now some 25 days ago. The left shoulder can be moved passively. Her mental status is normal. Eyes without conjunctivitis. Oral cavity negative. Lungs relatively clear. Cardiac tones: No murmur. Abdomen benign. LABORATORIES: Include a white count 10,000 with normal differential. Creatinine is 1.04. LFTs are normal. Procalcitonin 0.17. Urinalysis without white cells. ANCA negative. HELEN negative. Hepatitis C negative. The follow up blood cultures including some done on the all are negative. Our last positive blood culture was back on February 21. IMPRESSION: This patient is doing relatively well but I am concerned about two things. One is the recrudescence of her left shoulder pain which may require additional evaluation by orthopedics. The other concern here is that she is having pain at her left neck central line insertion site. The site itself appears benign externally but it does concern me that it is somewhat painful and I wonder if we should just go ahead and transition to a PICC type line to finish out her extended course of therapy. RECOMMENDATIONS: 1. I have written to remove the central line, culture the tip and place a new PICC line. 2. Will continue with IV nafcillin through April 04. 3. Will continue to follow this patient closely. 4. If her shoulder pain and decreased range of motion should persist, I think we should involve physical therapy and probably Orthopedics one more time to make sure there is no concern about a septic joint and also to keep her from developing a frozen shoulder.
--- NOTE | 2017-03-10 14:04 | NUR ---
[facility] [place] UP : Spoke with Elisa Mcclendon [phone] and they do not currently have a bed. They can take patient based on clinical needs, but she is not foreseeing discharges until 03/25/17. Faxed updated clinicals Updated [employer]
--- NOTE | 2017-03-10 14:12 | DRSVH ---
PROCEDURE: US VENOUS ARM DUPLEX, BILATERAL INDICATIONS: R/O DVT TECHNIQUE: Real-time imaging, as well as color and pulse Doppler interrogation, was performed of both upper extr emity deep veins from the inferior neck to the antecubital fossa. COMPARISON: [facility], US, US VENOUS ARM DPLX UNI RT, 10/21/2016, 20:39. [facility], US, US VENOUS ARM DPLX BILAT, 03/07/2016, 12:38. FINDINGS: The internal jugular veins, visualized portions of the subclavian veins, axillary veins, a nd brachial veins are free of intraluminal thrombus. Where physically possible, the veins are normal ly compressible. Color and pulse Doppler demonstrate normal intraluminal flow, with expected phasici ty and pulsatility. Additional scanning of the cephalic and basilic veins of the superficial system demonstrate normal compressibility, without thrombus. IMPRESSION: No venous thrombosis identified within the right or left upper extremities. Of note, the visualization of the left subclavian vein is somewhat limited secondary to PICC. Dictated by: Delon LEYVA Interpreted: Mariposa Nixon MD on 03/10/2017 at 11:55 Approved by: Mariposa Nixon M.D. on 03/10/2017 at 14:11
[2017-03-10] MEDS ORDERED: LORazepam 1 mg Tablet PO ONE (15:00)
--- NOTE | 2017-03-10 15:21 | PCM.PNMED ---
Subjective Date of Service Mar 10, 2017 Subjective Patient was seen and examined at bedside today. Patient denies any chest pain, shortness of breath, nausea, vomiting, diarrhea. Patient currently complains of tenderness in the left side of her neck secondary to her central line. The patient has requested that this be removed if possible and a different line could be potentially placed. Overnight events: None Exam Vital Signs Vital Sign - Last Date Time Temp Pulse Resp B/P Pulse Ox O2 Delivery O2 Flow Rate FiO2 03/10/17 09:56 37.2 103 18 107/73 97 Room Air Intake and Output 03/09/17 03/09/17 03/10/17 Cumulative From/Thru 15:00 23:00 07:00 02/16/17 23:36 - 03/10/17 05:40 Intake Total 250 ml 2492 ml 556 ml 49209 ml Output Total 33138 ml Balance 250 ml 2492 ml 556 ml 51021 ml Intake Oral 250 ml 2000 ml 59931 ml IV Total 492 ml 556 ml 03118 ml Tube Feeding 400 ml Platelets 490 ml Tube Irrigant 30 ml Output Urine Total 30735 ml Stool Total 1525 ml Urine/Stool Mix 6450 ml # Voids 1 4 30 # Bowel Movements 0 2 22 Exam Physical Exam: GEN: Patient was awake, alert, responding appropriately to questions HEENT: Pupils equal round and reactive to light, extraocular eye muscles intact , Neck soft supple, trachea midline, nomocephalic/atraumatic CV: +S1/S2, regular rate and rhythm, no murmurs auscultated Respiratory: CTAB, no wheezes, rales, rhonchi GI: +bowel sounds x4, soft, compressible, nontender to palpation EXT: no clubbing, cyanosis, edema Neuro: Cranial nerves II-XII grossly intact Psych: mood and affect were appropriate IVs and Medications Medications Reviewed: Medications were reviewed in detail Lab and Diagnostics Result Diagram: 03/10/1742603/10/17426 X-Rays, CTs and MRIs . X-RAY CHEST ONE VIEW, PORTABLE IMPRESSION: Diffuse bilateral patchy air space opacities suspicious for pneumonia. Dictated by: Delon LEYVA Interpreted: Jose Enrique York MD on 02/17/2017 X-RAY CHEST ONE VIEW, PORTABLE IMPRESSION: 1. Right internal jugular central venous catheter is in expected position. No pneumothorax. 2. Bilateral septic emboli as before. Dictated by: Lance Dan M.D. on 02/17/2017 CT CHEST, ABDOMEN AND PELVIS WITHOUT CONTRAST IMPRESSION: 1. Multiple bilateral cavitary lesions in the lungs consistent with recurrent septic emboli. The differential for these imaging findings includes inflammatory processes as well as metastatic disease but these are less likely given patient's prior history of septic emboli. 2. Slight asymmetric appearance of the right kidney with minimal perinephric stranding. However, evaluation for pyelonephritis is limited in the absence of intravenous contrast. Recommend correlation clinically. There is no hydronephrosis. 3. Mildly prominent bladder wall thickness likely due to incomplete distention. Recommend correlation with urinalysis. Dictated by: Sulaiman Haines M.D. on 02/17/2017 CT BRAIN WITHOUT CONTRAST IMPRESSION: 1. No acute intracranial abnormality. Dictated by: Sulaiman Haines M.D. on 02/17/2017 Cardiac Echo Impressions . Echocardiogram Report Name: RAJANI ALSTON JStudy Mirza e: 02/17/2017 Height : 63 in Hospital Exam Location: [facility] Weight : 155 lb Gender: Female BSA: 1 .7 m2 : 1990 Age: 26 yrs BP: 10 1/64 mmHg Reason For Study: ENDOCARDITIS/SEPSIS Ordering Physician: Stevie Jean Performed By: Hanny Wisdom Referring Physician: CHAPARRO BULL Interpretation Summary Sinus tachycardia. Normal LV size and wall thickness. There is normal LV wall motion and systolic function. EF is 55-60%. There is severe RV dilation with normal wall motion. There is severe RA dilation. There is a 2.5x0.9 cm vegetation on the downstream side of the tricuspid valve leaflet. There is moderate tricuspid regurgittation. There is normal valve structure and function otherwise. Estimated PASP is 42 mm Hg assuming RA pressure of 3 mm Hg. Compared to prior study 08/04/2016 sinus tachycardia is new. RV dilation is new. Vegetation on the tricuspid valve is old. Tricuspid regurgitation is old Assessment & Plan Pt is a 26 y/o female w/ a hx of tricuspid MSSA endocarditis, ongoing IVDA ( meth and heroin), septic PE, pneumonia, presenting to the ED c/o dyspnea. Acute endocarditis; present on admission; ongoing -Sepsis and shock both resolved -White count normal, procal trending down -Daptomycin was discontinued 02/28/17 -Continue nafcillin through April 04 -Patient will remain here in the hospital until completion due to high risk of relapse unless she is accepted at [facility] -Concerned about persistent fever; repeat Chest CT non contrast shows either lymphadenopathy versus possible neoplastic disease 03/02/17, culture this seems to be resolving 03/09/17 -Discontinue azithromycin 500 mg daily and linezolid 600 mg twice a day for possible pneumonia patient seems to be improving no longer has coarse breath sounds or wheezes/Rales/rhonchi (last dose 03/08/2017) -Continue DuoNeb's when necessary -Culture central line tip (03/10/17) - Continue to monitor Severe acute kidney injury. Present on admission. Resolving - Likely secondary to sepsis and hypotension and staphyloccocal glomerulonephritis. - C3/C4 decrease indicating likely infectious glomerulonephritis - Creatinine initially greater than 8; still trending down currently 1.04 - Nephrology consulted Dr. Patel (signed off with the patient on 02/29/2016) - Avoid nephrotoxic agents. Opioid dependence, poa, chronic. -The patient is tearful and frustrated that she is not receiving higher doses of opioid analgesics. Patient is demonstrating opioid seeking behaviors. She does not have an outpatient prescription for opioid analgesics. She is receiving oxycodone 5 mg every 4 hours when necessary. Nurses have observed the patient to pocket her oxycodone and administer them IV to herself. She was counseled regarding unacceptability this behavior. - Patient was counseled that increasing her opioid dependence with inpatient opioid medications, especially parenteral, of adverse long-term consequences for her health. - Current pain complaints consist of a chronic musculoskeletal complaints for which opioids are not indicated, and sepsis related rigors and musculoskeletal complaints which may be managed with antipyretics and nonsteroidal analgesics. - She should not receive additional opioids - Ativan 1 mg every 4 hours and will start decreasing Roxicodone - Patient remains on gabapentin 600 mg twice a day; home doses 3 times a day Acute blood loss anemia; present on admission; active -Patient's hemoglobin this morning was 5.9 due to her disconnecting her central line to go the bathroom, with significant blood loss back through the line (02/26) -2 units PRBCs ordered stat and given on 02/27/17 -Patient's H&H is currently fluctuating between the low 8's-9's, transfuse if the patient drops below 8 Acute sepsis with septic shock. Present on admission; resolved - Pt presented with temp 37.9, HR 145, BP 86/52, WBC 15.4 with left shift, lactic of 2.6. MSSA endocarditis with secondary bacteremia with persistently positive blood cultures at 5 days; CT positive for mycotic pulmonary embolism. Bcx negative since 02/21. Procal is down trending - Off norepinephrine for the time being; maintain mean arterial pressure of 65 mmHg - Discontinue daptomycin - Continue nafcillin through April 04 - Continue to follow blood cultures and CBC - Continue to use central line; will consider PICC if this is necessary for the patient to be transferred to [facility] still waiting to hear and response Persistent Diarrhea; present on admission; resolved 03/09/17 -Patient continues to have diarrhea which was present when she initially presented and then decrease with loperamide -Could be a sign of opiate withdrawal although she has been on Roxicodone -Continue Lomotil prn -Continue Florastor twice a day -Previous C. difficile was negative; repeat C. 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 Present on admission. Ongoing - CT chest showed septic pulmonary emboli bilaterally - Echocardiogram demonstrates a tricuspid vegetation, moderate tricuspid regurg , right sided heart failure - Dr. Patel and Dr. Riddle indicate that the patient is not a candidate is not a candidate at the moment and will require 6 weeks of antibiotics in 6 months off heroin -Patient's attempted injection of Roxicodone into her central line that raises the question whether she will meet surgical criteria for valve replacement. -Continue Eliquis for anticoagulation Left shoulder pain, acute on chronic. Present on admission. Resolving - Pt has history of septic joint of the left sternoclavicular joint; has been seen by orthopedics during the stay - Aspirate cell count, Gram stain, culture ordered 02/22/17 - Physical therapy to work with shoulder Right ventricular heart failure with anasarca; present on admission; resolving -Severe right ventricular dilation and tricuspid regurg, with pulmonary hypertension likely secondary to pulmonary embolisms -Cardiology was consulted no longer following at this time continue to treat with antibiotics History of seizure disorder. POA and stable. -Patient states she is not on Lamictal at home -Titrating down Lamictal discontinue Lamictal 03/09/17 -Continuing topiramate, at 100 mg twice a day Hypokalemia, not present on admission. Stable -Continue potassium 20 mEq twice a day oral -Continue monitor Septic Encephalopathy; not present on admission; resolved. Patient had hallucinations, got out of bed and stooled on the floor. Likely related to either sepsis or combination of medications including morphine, Vistaril, and Ativan. - Stopped Vistaril except at bedtime, stop morphine, decrease Ativan - Resolved with reduction in pain medication - Currently on Seroquel which she apparently takes at home as well per her report Severe thrombocytopenia, acute. Present on admission. Resolved - Platelets reached as low as 31, due to sepsis - Platelets currently with in normal range Anion gap metabolic acidosis and lactic acidosis, acute. Present on admission, resolved. Secondary to lactic acidosis and PRISCILA. Gap 24. pH 7.26, pCO2 32.6, pO2 110, bicarb 14.2. - Resolved Hypovolemic Hyponatremia, acute. Present on admission. Resolved - Na 126 on admission. Pt receiving NS @ 150 ml/hr - Resolved History of IV drug abuse. POA and Active with heroin during the week prior to arrival. - Hepatitis C negative - HIV negative History of tobacco dependence. By mouth and active - Nicotine patch ordered Disposition: Antibiotics to continue through April 04. Patient will remain in-house for transfer to [facility] pending social work. The patient's case was discussed today with infectious disease (Dr. Lee) who agrees that nafcillin is still the course that the patient needs to take and the fevers are most likely secondary to her current infection however the patient has been afebrile for the last 48 hours. The patient's central line will be removed and cultured for possible bacterial infection and the patient will now have a midline placed into her arm. Ultrasound of both arms were performed secondary to the fact that the patient has had a DVT in the right arm. The ultrasound was negative. Continue to encourage the patient to eat all of her meals up in a chair, shower daily, and get up and walking around as we do not want the patient to become deconditioned. The patient has had physical therapy ordered however she continues to refuse physical therapy services. Patient is safe and able to walk on her own and encouraged to do this throughout the day. GI Prophylaxis: H2 susan VTE Prophylaxis: Other (Pt has thrombocytopenia - no DVT prophylaxis for now.) VTE Mechanical Devices: Intermittant Pneumatic CD Resuscitation Status: CPR: Attempt Resuscitation Adeola Benton DO Mar 10, 2017 15:21
[2017-03-11] MEDS: Nafcillin Inj 2,000 MG in Dextrose 5% Minibag Plus 100 ML IV SCH ×6 (00:10→21:46)
[2017-03-11] MEDS: oxyCODONE 1 mg/mL 5 mL Liquid PO PRN ×3 (00:18→16:08)
[2017-03-11 00:25] VITALS: BP 121/84; PULSE 98; RESP 16; O2SAT 98
[2017-03-11 04:57] VITALS: BP 130/77; PULSE 107; RESP 16; O2SAT 96
[2017-03-11 05:29] VITALS: PULSE 101
[2017-03-11 05:47] LABS: BASOPHILS % (AUTO) 1.1 % (0-3); EOSINOPHILS % (AUTO) 1.8 % (0-5); MONOCYTES % (AUTO) 8.7 % (4-12); Mean Corpuscular Hemoglobin 30.9 pg (27.0-35.0); Mean Corpuscular Volume 94.7 fL (81-100); NEUTROPHILS % (AUTO) 64.4 % (40-74); Platelet Count 398 bil/L (150-400)
--- NOTE | 2017-03-11 06:41 | NUR ---
Pain c/o pain x1 this shift. Prn pain rx given and effective. Noted to be sleeping most of shift. Currently resting without any complaints.
[2017-03-11] MEDS ORDERED: Potassium Chloride 20 mEq SR Tablet PO ONE (07:50)
[2017-03-11] MEDS: Potassium Chloride 20 mEq SR Tablet PO SCH ×2 (09:04→17:36)
[2017-03-11] MEDS: guaiFENesin 600 mg ER12 Tablet PO SCH ×2 (09:04→20:40)
[2017-03-11] MEDS: Ondansetron 2 mg/mL 2 mL Inj IVPUSH PRN (10:11)
[2017-03-11 10:15] VITALS: BP 111/76; PULSE 103; RESP 18; O2SAT 97
--- NOTE | 2017-03-11 11:01 | PROG NOTE ---
[address] [address] PROGRESS NOTE PATIENT: RAJANI ALSTON : 1990 MR#: [id number] ADMIT: 02/17/2017 JOB ID: [id number] DATE: 03/11/2017 DATE: 03/11/2017 INFECTIOUS DISEASE FOLLOW UP NOTE: REASON FOR FOLLOWUP: Tricuspid endocarditis with septic pulmonary emboli. INTERVAL HISTORY: Yesterday when I saw the patient, she was having pain at the site of her left subclavian central line. The decision was made to remove that line and culture the tip, given that she has had some recent low-grade fevers and leukocytosis, and to switch to a midline on the right side. This proved to be very difficult and the effort to make this happen yesterday was aborted as was reported that the IV team had "hit a nerve." This hitting the nerve triggered pain in her right hand and the procedure was delayed until this morning when eventually a midline was placed in the right upper extremity and the central line on the left side was finally removed. Following all this, the patient says she still has some pain in the right hand due to the nerve injury that was reportedly incurred during the placement of the midline. She denies any fevers, chills, or sweats today. No significant shortness of breath. No nausea, vomiting. PHYSICAL EXAMINATION: Reveals a comfortable young woman. No acute distress. Temperature 37.8, pulse 103, respiratory rate 18, blood pressure 111/76. She has not had a temperature over 38 for four days now. Mental status seems to be clear. Eyes without conjunctivitis. Lungs are clear. Cardiac tones without murmur. Abdomen benign. The right midline catheter appears benign as well. LABORATORIES: Include a white count which has settled now down to 9900, with normal differential. Creatinine 0.95. LFTs normal. Albumin 3.5. Procalcitonin 0.17 when last measured a couple days ago. Our most recent blood cultures on the are negative. We also have negatives from February 25 and February 23. Our last positive blood culture was way back on February 21. No new imaging is available though there was an ultrasound of her upper extremities which was benign. IMPRESSION: This patient seems to be doing reasonably well though her hospitalization has not been without its share of drama and minor problems. At this point, we removed her painful left subclavian line and have placed a right upper extremity midline which should suffice to get her through end of therapy on April 04. At this time we have no overt evidence that she is failing treatment. She is not having significant leukocytosis, fevers or chills and her examination is not changing. RECOMMENDATIONS: 1. Will continue with nafcillin using the new midline catheter through April 04. 2. We should continue to check labs at least twice a week including CBC and CMP. 3. Will continue to follow with you on a twice a week basis.
[2017-03-11] MEDS ORDERED: 0.9% Sodium Chloride 250 ML ONE (14:32)
[2017-03-11 15:53] VITALS: BP 121/86; PULSE 95; RESP 18; O2SAT 99
--- NOTE | 2017-03-11 17:00 | PCM.PNMED ---
Subjective Date of Service Mar 11, 2017 Subjective Denies any new issues/complaints Exam Vital Signs Vital Sign - Last Date Time Temp Pulse Resp B/P Pulse Ox O2 Delivery O2 Flow Rate FiO2 03/11/17 15:53 37.4 95 18 121/86 99 Room Air Intake and Output 03/10/17 03/10/17 03/11/17 Cumulative From/Thru 15:00 23:00 07:00 02/16/17 23:36 - 03/11/17 06:06 Intake Total 1100 ml 902 ml 427 ml 24476 ml Output Total 08295 ml Balance 1100 ml 902 ml 427 ml 11839 ml Intake Oral 1100 ml 536 ml 59519 ml IV Total 366 ml 427 ml 82235 ml Tube Feeding 400 ml Platelets 490 ml Tube Irrigant 30 ml Output Urine Total 74149 ml Stool Total 1525 ml Urine/Stool Mix 6450 ml # Voids 2 4 36 # Bowel Movements 0 22 General: Alert, Cooperative, No Acute Distress Head: Normal Eyes: Scleral Anicteric Nose: Mucous Membr Moist/[place] Mouth: Mucous Membr Moist/[place] Neck: Supple Chest & Lungs: Chest Wall Normal, Clear to auscultation & percussion Cardiovascular: Regular Rate/Rhythm Abdomen: Non-tender, Non-distended, Normoactive bowel tones, Soft Extremities: No cyanosis/clubbing/edma bilat Neurological: Grossly Neurologically Intact, Normal Speech IVs and Medications Medications Reviewed: Medications were reviewed in detail Lab and Diagnostics Result Diagram: 03/11/17 0535 03/11/1735 X-Rays, CTs and MRIs . X-RAY CHEST ONE VIEW, PORTABLE IMPRESSION: Diffuse bilateral patchy air space opacities suspicious for pneumonia. Dictated by: Delon Pelayo [facility] Interpreted: Jose Enrique York MD on 02/17/2017 X-RAY CHEST ONE VIEW, PORTABLE IMPRESSION: 1. Right internal jugular central venous catheter is in expected position. No pneumothorax. 2. Bilateral septic emboli as before. Dictated by: Lance Dan M.D. on 02/17/2017 CT CHEST, ABDOMEN AND PELVIS WITHOUT CONTRAST IMPRESSION: 1. Multiple bilateral cavitary lesions in the lungs consistent with recurrent septic emboli. The differential for these imaging findings includes inflammatory processes as well as metastatic disease but these are less likely given patient's prior history of septic emboli. 2. Slight asymmetric appearance of the right kidney with minimal perinephric stranding. However, evaluation for pyelonephritis is limited in the absence of intravenous contrast. Recommend correlation clinically. There is no hydronephrosis. 3. Mildly prominent bladder wall thickness likely due to incomplete distention. Recommend correlation with urinalysis. Dictated by: Sulaiman Haines M.D. on 02/17/2017 CT BRAIN WITHOUT CONTRAST IMPRESSION: 1. No acute intracranial abnormality. Dictated by: Sulaiman Haines M.D. on 02/17/2017 Cardiac Echo Impressions Echocardiogram Report Interpretation Summary Sinus tachycardia. Normal LV size and wall thickness. There is normal LV wall motion and systolic function. EF is 55-60%. There is severe RV dilation with normal wall motion. There is severe RA dilation. There is a 2.5x0.9 cm vegetation on the downstream side of the tricuspid valve leaflet. There is moderate tricuspid regurgittation. There is normal valve structure and function otherwise. Estimated PASP is 42 mm Hg assuming RA pressure of 3 mm Hg. Compared to prior study 08/04/2016 sinus tachycardia is new. RV dilation is new. Vegetation on the tricuspid valve is old. Tricuspid regurgitation is old Assessment & Plan 26 y/o female w/ a hx of tricuspid MSSA endocarditis, ongoing IVDA (meth and heroin), septic PE, pneumonia, presenting to the ED c/o dyspnea. Acute hypokalemia. Not present on admission. -Replete and followup Acute endocarditis; present on admission; ongoing -Sepsis and shock both resolved -White count normal, procal trending down -Daptomycin was discontinued 02/28/17 -Continue nafcillin through April 04 -Patient will remain here in the hospital until completion due to high risk of relapse unless she is accepted at [facility] -Concerned about persistent fever; repeat Chest CT non contrast shows either lymphadenopathy versus possible neoplastic disease 03/02/17, culture this seems to be resolving 03/09/17 -Discontinue azithromycin 500 mg daily and linezolid 600 mg twice a day for possible pneumonia patient seems to be improving no longer has coarse breath sounds or wheezes/Rales/rhonchi (last dose 03/08/2017) -Continue DuoNeb's when necessary -Culture central line tip (03/10/17) Severe acute kidney injury. Present on admission. Resolving - Likely secondary to sepsis and hypotension and staphyloccocal glomerulonephritis. - C3/C4 decrease indicating likely infectious glomerulonephritis - Creatinine initially greater than 8; still trending down currently 1.04 - Nephrology consulted Dr. Patel (signed off with the patient on 02/29/2016) - Avoid nephrotoxic agents. Opioid dependence, poa, chronic. -The patient is tearful and frustrated that she is not receiving higher doses of opioid analgesics. Patient is demonstrating opioid seeking behaviors. She does not have an outpatient prescription for opioid analgesics. She is receiving oxycodone 5 mg every 4 hours when necessary. Nurses have observed the patient to pocket her oxycodone and administer them IV to herself. She was counseled regarding unacceptability this behavior. - Patient was counseled that increasing her opioid dependence with inpatient opioid medications, especially parenteral, of adverse long-term consequences for her health. - Current pain complaints consist of a chronic musculoskeletal complaints for which opioids are not indicated, and sepsis related rigors and musculoskeletal complaints which may be managed with antipyretics and nonsteroidal analgesics. - She should not receive additional opioids - Ativan 1 mg every 4 hours and will start decreasing Roxicodone - Patient remains on gabapentin 600 mg twice a day; home doses 3 times a day Acute blood loss anemia; present on admission; active -Patient's hemoglobin this morning was 5.9 due to her disconnecting her central line to go the bathroom, with significant blood loss back through the line (02/26) -2 units PRBCs ordered stat and given on 02/27/17 -Patient's H&H is currently fluctuating between the low 8's-9's, transfuse if the patient drops below 8 Acute sepsis with septic shock. Present on admission; resolved - Pt presented with temp 37.9, HR 145, BP 86/52, WBC 15.4 with left shift, lactic of 2.6. MSSA endocarditis with secondary bacteremia with persistently positive blood cultures at 5 days; CT positive for mycotic pulmonary embolism. Bcx negative since 02/21. Procal is down trending - Off norepinephrine for the time being; maintain mean arterial pressure of 65 mmHg - Discontinue daptomycin - Continue nafcillin through April 04 - Continue to follow blood cultures and CBC - Continue to use central line; will consider PICC if this is necessary for the patient to be transferred to [facility] still waiting to hear and response Persistent Diarrhea; present on admission; resolved 03/09/17 -Patient continues to have diarrhea which was present when she initially presented and then decrease with loperamide -Could be a sign of opiate withdrawal although she has been on Roxicodone -Continue Lomotil prn -Continue Florastor twice a day -Previous C. difficile was negative; repeat C. 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 Present on admission. Ongoing - CT chest showed septic pulmonary emboli bilaterally - Echocardiogram demonstrates a tricuspid vegetation, moderate tricuspid regurg , right sided heart failure - Dr. Patel and Dr. Riddle indicate that the patient is not a candidate is not a candidate at the moment and will require 6 weeks of antibiotics in 6 months off heroin -Patient's attempted injection of Roxicodone into her central line that raises the question whether she will meet surgical criteria for valve replacement. -Continue Eliquis for anticoagulation Left shoulder pain, acute on chronic. Present on admission. Resolving - Pt has history of septic joint of the left sternoclavicular joint; has been seen by orthopedics during the stay - Aspirate cell count, Gram stain, culture ordered 02/22/17 - Physical therapy to work with shoulder Right ventricular heart failure with anasarca; present on admission; resolving -Severe right ventricular dilation and tricuspid regurg, with pulmonary hypertension likely secondary to pulmonary embolisms -Cardiology was consulted no longer following at this time continue to treat with antibiotics History of seizure disorder. POA and stable. -Patient states she is not on Lamictal at home -Titrating down Lamictal discontinue Lamictal 03/09/17 -Continuing topiramate, at 100 mg twice a day Hypokalemia, not present on admission. Stable -Continue potassium 20 mEq twice a day oral -Continue monitor Septic Encephalopathy; not present on admission; resolved. Patient had hallucinations, got out of bed and stooled on the floor. Likely related to either sepsis or combination of medications including morphine, Vistaril, and Ativan. - Stopped Vistaril except at bedtime, stop morphine, decrease Ativan - Resolved with reduction in pain medication - Currently on Seroquel which she apparently takes at home as well per her report Severe thrombocytopenia, acute. Present on admission. Resolved - Platelets reached as low as 31, due to sepsis - Platelets currently with in normal range Anion gap metabolic acidosis and lactic acidosis, acute. Present on admission, resolved. Secondary to lactic acidosis and PRISCILA. Gap 24. pH 7.26, pCO2 32.6, pO2 110, bicarb 14.2. - Resolved Hypovolemic Hyponatremia, acute. Present on admission. Resolved - Na 126 on admission. Pt receiving NS @ 150 ml/hr - Resolved History of IV drug abuse. POA and Active with heroin during the week prior to arrival. - Hepatitis C negative - HIV negative History of tobacco dependence. By mouth and active - Nicotine patch ordered Disposition: Antibiotics to continue through April 04. Patient will remain in-house for transfer [place] [facility] [place] social work. GI Prophylaxis: H2 susan VTE Prophylaxis: Other (Pt has thrombocytopenia - no DVT prophylaxis for now.) VTE Mechanical Devices: Intermittant Pneumatic CD Resuscitation Status: CPR: Attempt Resuscitation David Sy Mar 11, 2017 17:00
[2017-03-11 20:25] VITALS: BP 116/74; PULSE 86; RESP 18; O2SAT 96
[2017-03-12] VITALS (8 sets, daily range): BP systolic 120–143; BP diastolic 81–98; PULSE 99–122; RESP 18–20; O2SAT 96–100
[2017-03-12] MEDS: oxyCODONE 1 mg/mL 5 mL Liquid PO PRN ×4 (00:29→20:17)
[2017-03-12] MEDS: Nafcillin Inj 2,000 MG in Dextrose 5% Minibag Plus 100 ML IV SCH ×7 (02:06→23:55)
--- NOTE | 2017-03-12 03:03 | NUR ---
PAIN Pt complained of pain 7-8/10 twice during the night. Administered pain medication and Ativan, effective. Pt resting with eyes closed. Denies SOB or n/v.Call light within reach, using appropriately. Frequent rounding in place. Pleasant and cooperative with care.
[2017-03-12 06:03] LABS: Magnesium 1.7 mg/dL (1.6-2.6)
[2017-03-12] MEDS: guaiFENesin 600 mg ER12 Tablet PO SCH ×2 (08:33→20:15)
[2017-03-12] MEDS: Potassium Chloride 20 mEq SR Tablet PO SCH ×2 (08:33→17:41)
--- NOTE | 2017-03-12 12:00 | NUR ---
HR manufacturing tech, reported ST 110-120's, pt asymptomatic and talking loudly on phone. MD aware, no new orders currently.
--- NOTE | 2017-03-12 15:37 | PCM.PNMED ---
Subjective Date of Service Mar 12, 2017 Subjective Denies any new issues/complaints Exam Vital Signs Vital Sign - Last Date Time Temp Pulse Resp B/P Pulse Ox O2 Delivery O2 Flow Rate FiO2 03/12/17 13:30 37.6 03/12/17 13:00 122 20 130/93 99 Room Air Intake and Output 03/11/17 03/11/17 03/12/17 Cumulative From/Thru 15:00 23:00 07:00 02/16/17 23:36 - 03/12/17 06:13 Intake Total 850 ml 1923 ml 100 ml 25817 ml Output Total 96815 ml Balance 850 ml 1923 ml 100 ml 12230 ml Intake Oral 850 ml 1600 ml 100 ml 01789 ml IV Total 323 ml 23767 ml Tube Feeding 400 ml Platelets 490 ml Tube Irrigant 30 ml Output Urine Total 34311 ml Stool Total 1525 ml Urine/Stool Mix 6450 ml # Voids 2 5 1 44 # Bowel Movements 0 22 Exam General: Alert, Cooperative, No Acute Distress Head: Normal Eyes: Scleral Anicteric Nose: Mucous Membr Moist/[place] Mouth: Mucous Membr Moist/[place] Neck: Supple Chest & Lungs: Chest Wall Normal, Clear to auscultation bilat Cardiovascular: Regular Rate/Rhythm Abdomen: Non-tender, Non-distended, Normoactive bowel tones, Soft Extremities: No cyanosis/clubbing/edema bilat Neurological: Grossly Neurologically Intact, Normal Speech IVs and Medications Medications Reviewed: Medications were reviewed in detail Lab and Diagnostics Result Diagram: 03/11/17 0535 03/12/17 0521 X-Rays, CTs and MRIs . X-RAY CHEST ONE VIEW, PORTABLE IMPRESSION: Diffuse bilateral patchy air space opacities suspicious for pneumonia. Dictated by: Delon Pelayo [facility] Interpreted: Jose Enrique York MD on 02/17/2017 X-RAY CHEST ONE VIEW, PORTABLE IMPRESSION: 1. Right internal jugular central venous catheter is in expected position. No pneumothorax. 2. Bilateral septic emboli as before. Dictated by: Lance Dan M.D. on 02/17/2017 CT CHEST, ABDOMEN AND PELVIS WITHOUT CONTRAST IMPRESSION: 1. Multiple bilateral cavitary lesions in the lungs consistent with recurrent septic emboli. The differential for these imaging findings includes inflammatory processes as well as metastatic disease but these are less likely given patient's prior history of septic emboli. 2. Slight asymmetric appearance of the right kidney with minimal perinephric stranding. However, evaluation for pyelonephritis is limited in the absence of intravenous contrast. Recommend correlation clinically. There is no hydronephrosis. 3. Mildly prominent bladder wall thickness likely due to incomplete distention. Recommend correlation with urinalysis. Dictated by: Sulaiman Haines M.D. on 02/17/2017 CT BRAIN WITHOUT CONTRAST IMPRESSION: 1. No acute intracranial abnormality. Dictated by: Sulaiman Haines M.D. on 02/17/2017 Cardiac Echo Impressions Echocardiogram Report Interpretation Summary Sinus tachycardia. Normal LV size and wall thickness. There is normal LV wall motion and systolic function. EF is 55-60%. There is severe RV dilation with normal wall motion. There is severe RA dilation. There is a 2.5x0.9 cm vegetation on the downstream side of the tricuspid valve leaflet. There is moderate tricuspid regurgittation. There is normal valve structure and function otherwise. Estimated PASP is 42 mm Hg assuming RA pressure of 3 mm Hg. Compared to prior study 08/04/2016 sinus tachycardia is new. RV dilation is new. Vegetation on the tricuspid valve is old. Tricuspid regurgitation is old Assessment & Plan 26 y/o female w/ a hx of tricuspid MSSA endocarditis, ongoing IVDA (meth and heroin), septic PE, pneumonia, presenting to the ED c/o dyspnea. Acute hypokalemia. Not present on admission. -Resolved after repletion Acute endocarditis; present on admission; ongoing -Sepsis and shock both resolved -White count normal, procal trending down -Daptomycin was discontinued 02/28/17 -Continue nafcillin through April 04 -Patient will remain here in the hospital until completion due to high risk of relapse unless she is accepted at [facility] -Concerned about persistent fever; repeat Chest CT non contrast shows either lymphadenopathy versus possible neoplastic disease 03/02/17, culture this seems to be resolving 03/09/17 -Discontinue azithromycin 500 mg daily and linezolid 600 mg twice a day for possible pneumonia patient seems to be improving no longer has coarse breath sounds or wheezes/Rales/rhonchi (last dose 03/08/2017) -Continue DuoNeb's when necessary -Culture central line tip (03/10/17) Severe acute kidney injury. Present on admission. Resolving - Likely secondary to sepsis and hypotension and staphyloccocal glomerulonephritis. - C3/C4 decrease indicating likely infectious glomerulonephritis - Creatinine initially greater than 8; still trending down currently 1.04 - Nephrology consulted Dr. Patel (signed off with the patient on 02/29/2016) - Avoid nephrotoxic agents. Opioid dependence, poa, chronic. -The patient is tearful and frustrated that she is not receiving higher doses of opioid analgesics. Patient is demonstrating opioid seeking behaviors. She does not have an outpatient prescription for opioid analgesics. She is receiving oxycodone 5 mg every 4 hours when necessary. Nurses have observed the patient to pocket her oxycodone and administer them IV to herself. She was counseled regarding unacceptability this behavior. - Patient was counseled that increasing her opioid dependence with inpatient opioid medications, especially parenteral, of adverse long-term consequences for her health. - Current pain complaints consist of a chronic musculoskeletal complaints for which opioids are not indicated, and sepsis related rigors and musculoskeletal complaints which may be managed with antipyretics and nonsteroidal analgesics. - She should not receive additional opioids - Ativan 1 mg every 4 hours and will start decreasing Roxicodone - Patient remains on gabapentin 600 mg twice a day; home doses 3 times a day Acute blood loss anemia; present on admission; active -Patient's hemoglobin this morning was 5.9 due to her disconnecting her central line to go the bathroom, with significant blood loss back through the line (02/26) -2 units PRBCs ordered stat and given on 02/27/17 -Patient's H&H is currently fluctuating between the low 8's-9's, transfuse if the patient drops below 8 Acute sepsis with septic shock. Present on admission; resolved - Pt presented with temp 37.9, HR 145, BP 86/52, WBC 15.4 with left shift, lactic of 2.6. MSSA endocarditis with secondary bacteremia with persistently positive blood cultures at 5 days; CT positive for mycotic pulmonary embolism. Bcx negative since 02/21. Procal is down trending - Off norepinephrine for the time being; maintain mean arterial pressure of 65 mmHg - Discontinue daptomycin - Continue nafcillin through April 04 - Continue to follow blood cultures and CBC - Continue to use central line; will consider PICC if this is necessary for the patient to be transferred to [facility] still waiting to hear and response Persistent Diarrhea; present on admission; resolved 03/09/17 -Patient continues to have diarrhea which was present when she initially presented and then decrease with loperamide -Could be a sign of opiate withdrawal although she has been on Roxicodone -Continue Lomotil prn -Continue Florastor twice a day -Previous C. difficile was negative; repeat C. 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 Present on admission. Ongoing - CT chest showed septic pulmonary emboli bilaterally - Echocardiogram demonstrates a tricuspid vegetation, moderate tricuspid regurg , right sided heart failure - Dr. Patel and Dr. Riddle indicate that the patient is not a candidate is not a candidate at the moment and will require 6 weeks of antibiotics in 6 months off heroin -Patient's attempted injection of Roxicodone into her central line that raises the question whether she will meet surgical criteria for valve replacement. -Continue Eliquis for anticoagulation Left shoulder pain, acute on chronic. Present on admission. Resolving - Pt has history of septic joint of the left sternoclavicular joint; has been seen by orthopedics during the stay - Aspirate cell count, Gram stain, culture ordered 02/22/17 - Physical therapy to work with shoulder Right ventricular heart failure with anasarca; present on admission; resolving -Severe right ventricular dilation and tricuspid regurg, with pulmonary hypertension likely secondary to pulmonary embolisms -Cardiology was consulted no longer following at this time continue to treat with antibiotics History of seizure disorder. POA and stable. -Patient states she is not on Lamictal at home -Titrating down Lamictal discontinue Lamictal 03/09/17 -Continuing topiramate, at 100 mg twice a day Hypokalemia, not present on admission. Stable -Continue potassium 20 mEq twice a day oral -Continue monitor Septic Encephalopathy; not present on admission; resolved. Patient had hallucinations, got out of bed and stooled on the floor. Likely related to either sepsis or combination of medications including morphine, Vistaril, and Ativan. - Stopped Vistaril except at bedtime, stop morphine, decrease Ativan - Resolved with reduction in pain medication - Currently on Seroquel which she apparently takes at home as well per her report Severe thrombocytopenia, acute. Present on admission. Resolved - Platelets reached as low as 31, due to sepsis - Platelets currently with in normal range Anion gap metabolic acidosis and lactic acidosis, acute. Present on admission, resolved. Secondary to lactic acidosis and PRISCILA. Gap 24. pH 7.26, pCO2 32.6, pO2 110, bicarb 14.2. - Resolved Hypovolemic Hyponatremia, acute. Present on admission. Resolved - Na 126 on admission. Pt receiving NS @ 150 ml/hr - Resolved History of IV drug abuse. POA and Active with heroin during the week prior to arrival. - Hepatitis C negative - HIV negative History of tobacco dependence. By mouth and active - Nicotine patch ordered Disposition: Antibiotics to continue through April 04. Patient will remain in-house for transfer to [facility] pending social work. GI Prophylaxis: H2 susan VTE Prophylaxis: Other (Pt has thrombocytopenia - no DVT prophylaxis for now.) VTE Mechanical Devices: Intermittant Pneumatic CD Resuscitation Status: CPR: Attempt Resuscitation David Sy Mar 12, 2017 15:37
[2017-03-12] MEDS ORDERED: 0.9% Sodium Chloride 250 ML ONE (23:45)
[2017-03-13] VITALS (10 sets, daily range): BP systolic 122–128; BP diastolic 77–91; PULSE 93–113; RESP 18–20; O2SAT 97–98
--- NOTE | 2017-03-13 01:48 | NUR ---
left neck / shoulder pain. Tele; Sinus 98 at rest, 105 with activity. No SOB, RA sats stable, upper 90's overnight. Appears comfortable with current Roxicodone Q 6hrs PRN. No signs of pocketing meds. IV antibiotics infusing. Resting quietly overnight.
[2017-03-13] MEDS: Nafcillin Inj 2,000 MG in Dextrose 5% Minibag Plus 100 ML IV SCH ×5 (04:11→20:50)
[2017-03-13] MEDS: oxyCODONE 1 mg/mL 5 mL Liquid PO PRN ×3 (06:35→20:49)
[2017-03-13] MEDS: Ondansetron 2 mg/mL 2 mL Inj IVPUSH PRN (07:55)
[2017-03-13] MEDS: Potassium Chloride 20 mEq SR Tablet PO SCH ×2 (07:58→18:06)
[2017-03-13] MEDS: guaiFENesin 600 mg ER12 Tablet PO SCH ×2 (07:58→20:50)
--- NOTE | 2017-03-13 12:36 | NUR ---
Social Work-Continued d/c planning: Data: EMR Reviewed. Pt is on day 24 of hospitalization for Sepsis per H&P. Pt is medically stable, but needs to remain at [facility] for course of IV abx. Referral has been made to [facility], clinically pt is appropriate but there is no bed available at this time. [facility] Swing Bed will likely not be available until March 25. Resources have been provided to pt for Methadone Clinic at [facility]. Alternative resources provided to pt for disability information. SW will continue to follow. Assessment: pt who will need emt intermediate IV abx. Plan: Pt is clinically appropriate for [facility] Bed unit, bed likely not available until March 26. SW will continue to follow. BINA Deleon
--- NOTE | 2017-03-13 17:14 | PCM.PNMED ---
Subjective Date of Service Mar 13, 2017 Subjective Denies any new issues/complaints Exam Vital Signs Vital Sign - Last Date Time Temp Pulse Resp B/P Pulse Ox O2 Delivery O2 Flow Rate FiO2 03/13/17 13:07 36.9 105 18 127/90 98 Room Air Intake and Output 03/12/17 03/12/17 03/13/17 Cumulative From/Thru 15:00 23:00 07:00 02/16/17 23:36 - 03/13/17 06:01 Intake Total 695 ml 790 ml 200 ml 80200 ml Output Total 85840 ml Balance 695 ml 790 ml 200 ml 16392 ml Intake Oral 790 ml 200 ml 78167 ml IV Total 695 ml 55165 ml Tube Feeding 400 ml Platelets 490 ml Tube Irrigant 30 ml Output Urine Total 30266 ml Stool Total 1525 ml Urine/Stool Mix 6450 ml # Voids 4 2 50 # Bowel Movements 3 25 Exam General: Alert, Cooperative, No Acute Distress Head: Normal Eyes: Scleral Anicteric Nose: Mucous Membr Moist/[place] Mouth: Mucous Membr Moist/[place] Neck: Supple Chest & Lungs: Chest Wall Normal, Clear to auscultation bilat Cardiovascular: Regular Rate/Rhythm Abdomen: Non-tender, Non-distended, Normoactive bowel tones, Soft Extremities: No cyanosis/clubbing/edema bilat Neurological: Grossly Neurologically Intact, Normal Speech IVs and Medications Medications Reviewed: Medications were reviewed in detail Lab and Diagnostics Result Diagram: 03/11/17 0535 03/12/17 0521 X-Rays, CTs and MRIs . X-RAY CHEST ONE VIEW, PORTABLE IMPRESSION: Diffuse bilateral patchy air space opacities suspicious for pneumonia. Dictated by: Delon Pelayo Mary[facility]ane Interpreted: Jose Enrique York MD on 02/17/2017 X-RAY CHEST ONE VIEW, PORTABLE IMPRESSION: 1. Right internal jugular central venous catheter is in expected position. No pneumothorax. 2. Bilateral septic emboli as before. Dictated by: Lance Dan M.D. on 02/17/2017 CT CHEST, ABDOMEN AND PELVIS WITHOUT CONTRAST IMPRESSION: 1. Multiple bilateral cavitary lesions in the lungs consistent with recurrent septic emboli. The differential for these imaging findings includes inflammatory processes as well as metastatic disease but these are less likely given patient's prior history of septic emboli. 2. Slight asymmetric appearance of the right kidney with minimal perinephric stranding. However, evaluation for pyelonephritis is limited in the absence of intravenous contrast. Recommend correlation clinically. There is no hydronephrosis. 3. Mildly prominent bladder wall thickness likely due to incomplete distention. Recommend correlation with urinalysis. Dictated by: Sulaiman Haines M.D. on 02/17/2017 CT BRAIN WITHOUT CONTRAST IMPRESSION: 1. No acute intracranial abnormality. Dictated by: Sulaiman Haines M.D. on 02/17/2017 Cardiac Echo Impressions Echocardiogram Report Interpretation Summary Sinus tachycardia. Normal LV size and wall thickness. There is normal LV wall motion and systolic function. EF is 55-60%. There is severe RV dilation with normal wall motion. There is severe RA dilation. There is a 2.5x0.9 cm vegetation on the downstream side of the tricuspid valve leaflet. There is moderate tricuspid regurgittation. There is normal valve structure and function otherwise. Estimated PASP is 42 mm Hg assuming RA pressure of 3 mm Hg. Compared to prior study 08/04/2016 sinus tachycardia is new. RV dilation is new. Vegetation on the tricuspid valve is old. Tricuspid regurgitation is old Assessment & Plan 26 y/o female w/ a hx of tricuspid MSSA endocarditis, ongoing IVDA (meth and heroin), septic PE, pneumonia, presenting to the ED c/o dyspnea. Acute hypokalemia. Not present on admission. -Resolved after repletion Acute endocarditis; present on admission; ongoing -Sepsis and shock both resolved -White count normal, procal trending down -Daptomycin was discontinued 02/28/17 -Continue nafcillin through April 04 -Patient will remain here in the hospital until completion due to high risk of relapse unless she is accepted at [facility] -Concerned about persistent fever; repeat Chest CT non contrast shows either lymphadenopathy versus possible neoplastic disease 03/02/17, culture this seems to be resolving 03/09/17 -Discontinue azithromycin 500 mg daily and linezolid 600 mg twice a day for possible pneumonia patient seems to be improving no longer has coarse breath sounds or wheezes/Rales/rhonchi (last dose 03/08/2017) -Continue DuoNeb's when necessary -Culture central line tip (03/10/17) Severe acute kidney injury. Present on admission. Resolving - Likely secondary to sepsis and hypotension and staphyloccocal glomerulonephritis. - C3/C4 decrease indicating likely infectious glomerulonephritis - Creatinine initially greater than 8; still trending down currently 1.04 - Nephrology consulted Dr. Patel (signed off with the patient on 02/29/2016) - Avoid nephrotoxic agents. Opioid dependence, poa, chronic. -The patient is tearful and frustrated that she is not receiving higher doses of opioid analgesics. Patient is demonstrating opioid seeking behaviors. She does not have an outpatient prescription for opioid analgesics. She is receiving oxycodone 5 mg every 4 hours when necessary. Nurses have observed the patient to pocket her oxycodone and administer them IV to herself. She was counseled regarding unacceptability this behavior. - Patient was counseled that increasing her opioid dependence with inpatient opioid medications, especially parenteral, of adverse long-term consequences for her health. - Current pain complaints consist of a chronic musculoskeletal complaints for which opioids are not indicated, and sepsis related rigors and musculoskeletal complaints which may be managed with antipyretics and nonsteroidal analgesics. - She should not receive additional opioids - Ativan 1 mg every 4 hours and will start decreasing Roxicodone - Patient remains on gabapentin 600 mg twice a day; home doses 3 times a day Acute blood loss anemia; present on admission; active -Patient's hemoglobin this morning was 5.9 due to her disconnecting her central line to go the bathroom, with significant blood loss back through the line (02/26) -2 units PRBCs ordered stat and given on 02/27/17 -Patient's H&H is currently fluctuating between the low 8's-9's, transfuse if the patient drops below 8 Acute sepsis with septic shock. Present on admission; resolved - Pt presented with temp 37.9, HR 145, BP 86/52, WBC 15.4 with left shift, lactic of 2.6. MSSA endocarditis with secondary bacteremia with persistently positive blood cultures at 5 days; CT positive for mycotic pulmonary embolism. Bcx negative since 02/21. Procal is down trending - Off norepinephrine for the time being; maintain mean arterial pressure of 65 mmHg - Discontinue daptomycin - Continue nafcillin through April 04 - Continue to follow blood cultures and CBC - Continue to use central line; will consider PICC if this is necessary for the patient to be transferred to [facility] still waiting to hear and response Persistent Diarrhea; present on admission; resolved 03/09/17 -Patient continues to have diarrhea which was present when she initially presented and then decrease with loperamide -Could be a sign of opiate withdrawal although she has been on Roxicodone -Continue Lomotil prn -Continue Florastor twice a day -Previous C. difficile was negative; repeat C. 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 Present on admission. Ongoing - CT chest showed septic pulmonary emboli bilaterally - Echocardiogram demonstrates a tricuspid vegetation, moderate tricuspid regurg , right sided heart failure - Dr. Patel and Dr. Riddle indicate that the patient is not a candidate is not a candidate at the moment and will require 6 weeks of antibiotics in 6 months off heroin -Patient's attempted injection of Roxicodone into her central line that raises the question whether she will meet surgical criteria for valve replacement. -Continue Eliquis for anticoagulation Left shoulder pain, acute on chronic. Present on admission. Resolving - Pt has history of septic joint of the left sternoclavicular joint; has been seen by orthopedics during the stay - Aspirate cell count, Gram stain, culture ordered 02/22/17 - Physical therapy to work with shoulder Right ventricular heart failure with anasarca; present on admission; resolving -Severe right ventricular dilation and tricuspid regurg, with pulmonary hypertension likely secondary to pulmonary embolisms -Cardiology was consulted no longer following at this time continue to treat with antibiotics History of seizure disorder. POA and stable. -Patient states she is not on Lamictal at home -Titrating down Lamictal discontinue Lamictal 03/09/17 -Continuing topiramate, at 100 mg twice a day Hypokalemia, not present on admission. Stable -Continue potassium 20 mEq twice a day oral -Continue monitor Septic Encephalopathy; not present on admission; resolved. Patient had hallucinations, got out of bed and stooled on the floor. Likely related to either sepsis or combination of medications including morphine, Vistaril, and Ativan. - Stopped Vistaril except at bedtime, stop morphine, decrease Ativan - Resolved with reduction in pain medication - Currently on Seroquel which she apparently takes at home as well per her report Severe thrombocytopenia, acute. Present on admission. Resolved - Platelets reached as low as 31, due to sepsis - Platelets currently with in normal range Anion gap metabolic acidosis and lactic acidosis, acute. Present on admission, resolved. Secondary to lactic acidosis and PRISCILA. Gap 24. pH 7.26, pCO2 32.6, pO2 110, bicarb 14.2. - Resolved Hypovolemic Hyponatremia, acute. Present on admission. Resolved - Na 126 on admission. Pt receiving NS @ 150 ml/hr - Resolved History of IV drug abuse. POA and Active with heroin during the week prior to arrival. - Hepatitis C negative - HIV negative History of tobacco dependence. By mouth and active - Nicotine patch ordered Disposition: Antibiotics to continue through April 04. Patient will remain in-house for transfer to [facility] pending social work. GI Prophylaxis: H2 susan VTE Prophylaxis: Other (Pt has thrombocytopenia - no DVT prophylaxis for now.) VTE Mechanical Devices: Venous Foot Pump Resuscitation Status: CPR: Attempt Resuscitation David Sy Mar 13, 2017 17:14
[2017-03-14] VITALS (8 sets, daily range): BP systolic 113–129; BP diastolic 76–90; PULSE 88–101; RESP 18; O2SAT 96–100
[2017-03-14] MEDS: Nafcillin Inj 2,000 MG in Dextrose 5% Minibag Plus 100 ML IV SCH ×6 (00:33→19:40)
--- NOTE | 2017-03-14 06:30 | NUR ---
NOC/Shoulder pain Pt is alert and oriented, cooperative with care. Denies chest pain, sob, n/v or abd discomfort. Reports of shoulder pain, 01/24. Administered Roxicodone Liquid PRN. HS meds and IV ABx administered as scheduled. Intentional hourly rounding done and pt has slept most of the night.
[2017-03-14] MEDS: guaiFENesin 600 mg ER12 Tablet PO SCH ×2 (08:08→21:14)
[2017-03-14] MEDS: oxyCODONE 1 mg/mL 5 mL Liquid PO PRN ×3 (08:10→21:15)
--- NOTE | 2017-03-14 08:36 | PCM.PNMED ---
Subjective Date of Service Mar 14, 2017 Subjective Denies any new issues/complaints Exam Vital Signs Vital Sign - Last Date Time Temp Pulse Resp B/P Pulse Ox O2 Delivery O2 Flow Rate FiO2 03/14/17 08:19 36.8 95 18 129/90 96 Room Air Intake and Output 03/13/17 03/13/17 03/14/17 Cumulative From/Thru 15:00 23:00 07:00 02/16/17 23:36 - 03/14/17 06:36 Intake Total 1401 ml 594 ml 78513 ml Output Total 24520 ml Balance 1401 ml 594 ml 92209 ml Intake Oral 720 ml 473 ml 07727 ml IV Total 681 ml 121 ml 99961 ml Tube Feeding 400 ml Platelets 490 ml Tube Irrigant 30 ml Output Urine Total 12883 ml Stool Total 1525 ml Urine/Stool Mix 6450 ml # Voids 5 1 56 # Bowel Movements 1 26 Exam General: Alert, Cooperative, No Acute Distress Head: Normal Eyes: Scleral Anicteric Nose: Mucous Membr Moist/[place] Mouth: Mucous Membr Moist/[place] Neck: Supple Chest & Lungs: Chest Wall Normal, Clear to auscultation bilat Cardiovascular: Regular Rate/Rhythm Abdomen: Non-tender, Non-distended, Normoactive bowel tones, Soft Extremities: No cyanosis/clubbing/edema bilat Neurological: Grossly Neurologically Intact, Normal Speech IVs and Medications Medications Reviewed: Medications were reviewed in detail Lab and Diagnostics Result Diagram: 03/11/17 0535 03/12/17 0521 X-Rays, CTs and MRIs . X-RAY CHEST ONE VIEW, PORTABLE IMPRESSION: Diffuse bilateral patchy air space opacities suspicious for pneumonia. Dictated by: Delon Pelayo [facility] Interpreted: Jose Enrique York MD on 02/17/2017 X-RAY CHEST ONE VIEW, PORTABLE IMPRESSION: 1. Right internal jugular central venous catheter is in expected position. No pneumothorax. 2. Bilateral septic emboli as before. Dictated by: Lance Dan M.D. on 02/17/2017 CT CHEST, ABDOMEN AND PELVIS WITHOUT CONTRAST IMPRESSION: 1. Multiple bilateral cavitary lesions in the lungs consistent with recurrent septic emboli. The differential for these imaging findings includes inflammatory processes as well as metastatic disease but these are less likely given patient's prior history of septic emboli. 2. Slight asymmetric appearance of the right kidney with minimal perinephric stranding. However, evaluation for pyelonephritis is limited in the absence of intravenous contrast. Recommend correlation clinically. There is no hydronephrosis. 3. Mildly prominent bladder wall thickness likely due to incomplete distention. Recommend correlation with urinalysis. Dictated by: Sulaiman Haines M.D. on 02/17/2017 CT BRAIN WITHOUT CONTRAST IMPRESSION: 1. No acute intracranial abnormality. Dictated by: Sulaiman Haines M.D. on 02/17/2017 Cardiac Echo Impressions Echocardiogram Report Interpretation Summary Sinus tachycardia. Normal LV size and wall thickness. There is normal LV wall motion and systolic function. EF is 55-60%. There is severe RV dilation with normal wall motion. There is severe RA dilation. There is a 2.5x0.9 cm vegetation on the downstream side of the tricuspid valve leaflet. There is moderate tricuspid regurgittation. There is normal valve structure and function otherwise. Estimated PASP is 42 mm Hg assuming RA pressure of 3 mm Hg. Compared to prior study 08/04/2016 sinus tachycardia is new. RV dilation is new. Vegetation on the tricuspid valve is old. Tricuspid regurgitation is old Assessment & Plan 26 y/o female w/ a hx of tricuspid MSSA endocarditis, ongoing IVDA (meth and heroin), septic PE, pneumonia, presenting to the ED c/o dyspnea. Acute hypokalemia. Not present on admission. -Resolved after repletion Acute endocarditis; present on admission; ongoing -Sepsis and shock both resolved -White count normal, procal trending down -Daptomycin was discontinued 02/28/17 -Continue nafcillin through April 04 -Patient will remain here in the hospital until completion due to high risk of relapse unless she is accepted [place] [facility] -Concerned about persistent fever; repeat Chest CT non contrast shows either lymphadenopathy versus possible neoplastic disease 03/02/17, culture this seems to be resolving 03/09/17 -Discontinue azithromycin 500 mg daily and linezolid 600 mg twice a day for possible pneumonia patient seems to be improving no longer has coarse breath sounds or wheezes/Rales/rhonchi (last dose 03/08/2017) -Continue DuoNeb's when necessary -Culture central line tip (03/10/17) Severe acute kidney injury. Present on admission. Resolving - Likely secondary to sepsis and hypotension and staphyloccocal glomerulonephritis. - C3/C4 decrease indicating likely infectious glomerulonephritis - Creatinine initially greater than 8; still trending down currently 1.04 - Nephrology consulted Dr. Patel (signed off with the patient on 02/29/2016) - Avoid nephrotoxic agents. Opioid dependence, poa, chronic. -The patient is tearful and frustrated that she is not receiving higher doses of opioid analgesics. Patient is demonstrating opioid seeking behaviors. She does not have an outpatient prescription for opioid analgesics. She is receiving oxycodone 5 mg every 4 hours when necessary. Nurses have observed the patient to pocket her oxycodone and administer them IV to herself. She was counseled regarding unacceptability this behavior. - Patient was counseled that increasing her opioid dependence with inpatient opioid medications, especially parenteral, of adverse long-term consequences for her health. - Current pain complaints consist of a chronic musculoskeletal complaints for which opioids are not indicated, and sepsis related rigors and musculoskeletal complaints which may be managed with antipyretics and nonsteroidal analgesics. - She should not receive additional opioids - Ativan 1 mg every 4 hours and will start decreasing Roxicodone - Patient remains on gabapentin 600 mg twice a day; home doses 3 times a day Acute blood loss anemia; present on admission; active -Patient's hemoglobin this morning was 5.9 due to her disconnecting her central line to go the bathroom, with significant blood loss back through the line (02/26) -2 units PRBCs ordered stat and given on 02/27/17 -Patient's H&H is currently fluctuating between the low 8's-9's, transfuse if the patient drops below 8 Acute sepsis with septic shock. Present on admission; resolved - Pt presented with temp 37.9, HR 145, BP 86/52, WBC 15.4 with left shift, lactic of 2.6. MSSA endocarditis with secondary bacteremia with persistently positive blood cultures at 5 days; CT positive for mycotic pulmonary embolism. Bcx negative since 02/21. Procal is down trending - Off norepinephrine for the time being; maintain mean arterial pressure of 65 mmHg - Discontinue daptomycin - Continue nafcillin through April 04 - Continue to follow blood cultures and CBC - Continue to use central line; will consider PICC if this is necessary for the patient to be transferred to [facility] still waiting to hear and response Persistent Diarrhea; present on admission; resolved 03/09/17 -Patient continues to have diarrhea which was present when she initially presented and then decrease with loperamide -Could be a sign of opiate withdrawal although she has been on Roxicodone -Continue Lomotil prn -Continue Florastor twice a day -Previous C. difficile was negative; repeat C. 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 Present on admission. Ongoing - CT chest showed septic pulmonary emboli bilaterally - Echocardiogram demonstrates a tricuspid vegetation, moderate tricuspid regurg , right sided heart failure - Dr. Patel and Dr. Riddle indicate that the patient is not a candidate is not a candidate at the moment and will require 6 weeks of antibiotics in 6 months off heroin -Patient's attempted injection of Roxicodone into her central line that raises the question whether she will meet surgical criteria for valve replacement. -Continue Eliquis for anticoagulation Left shoulder pain, acute on chronic. Present on admission. Resolving - Pt has history of septic joint of the left sternoclavicular joint; has been seen by orthopedics during the stay - Aspirate cell count, Gram stain, culture ordered 02/22/17 - Physical therapy to work with shoulder Right ventricular heart failure with anasarca; present on admission; resolving -Severe right ventricular dilation and tricuspid regurg, with pulmonary hypertension likely secondary to pulmonary embolisms -Cardiology was consulted no longer following at this time continue to treat with antibiotics History of seizure disorder. POA and stable. -Patient states she is not on Lamictal at home -Titrating down Lamictal discontinue Lamictal 03/09/17 -Continuing topiramate, at 100 mg twice a day Hypokalemia, not present on admission. Stable -Continue potassium 20 mEq twice a day oral -Continue monitor Septic Encephalopathy; not present on admission; resolved. Patient had hallucinations, got out of bed and stooled on the floor. Likely related to either sepsis or combination of medications including morphine, Vistaril, and Ativan. - Stopped Vistaril except at bedtime, stop morphine, decrease Ativan - Resolved with reduction in pain medication - Currently on Seroquel which she apparently takes at home as well per her report Severe thrombocytopenia, acute. Present on admission. Resolved - Platelets reached as low as 31, due to sepsis - Platelets currently with in normal range Anion gap metabolic acidosis and lactic acidosis, acute. Present on admission, resolved. Secondary to lactic acidosis and PRISCILA. Gap 24. pH 7.26, pCO2 32.6, pO2 110, bicarb 14.2. - Resolved Hypovolemic Hyponatremia, acute. Present on admission. Resolved - Na 126 on admission. Pt receiving NS @ 150 ml/hr - Resolved History of IV drug abuse. POA and Active with heroin during the week prior to arrival. - Hepatitis C negative - HIV negative History of tobacco dependence. By mouth and active - Nicotine patch ordered Disposition: Antibiotics to continue through April 04. Patient will remain in-house for [place] [facility] [place]. GI Prophylaxis: H2 susan VTE Prophylaxis: Other (Pt has thrombocytopenia - no DVT prophylaxis for now.) VTE Mechanical Devices: Venous Foot Pump Resuscitation Status: CPR: Attempt Resuscitation David Sy Mar 14, 2017 08:36
[2017-03-14] MEDS: Potassium Chloride 20 mEq SR Tablet PO SCH ×2 (09:24→17:52)
--- NOTE | 2017-03-14 13:25 | PROG NOTE ---
[address] [address] PROGRESS NOTE PATIENT: RAJANI ALSTON : 1990 MR#: [id number] ADMIT: 02/17/2017 JOB ID: [id number] DATE: 03/14/2017 REASON FOR FOLLOWUP: Tricuspid valve endocarditis with septic pulmonary emboli. INTERVAL HISTORY: Over the weekend, the patient has felt relatively well. She still has some pain and decreased range of motion in her left shoulder, but it is gradually getting better. The severe pain she suffered in her right hand after a nerve was struck, according to her report during the placement of her midline catheter, is now completely resolved. She is having no significant cough, shortness of breath or chest pain. PHYSICAL EXAMINATION: Reveals a comfortable young woman. No acute distress. Temp 36.8, pulse 100, respiratory rate 18, blood pressure 129/90. She is saturating well on room air. Eyes without conjunctivitis. Lungs relatively clear. Cardiac tones without murmur. She has a minimal active range of motion of her left shoulder but with passive range of motion is basically normal. Her right upper extremity midline catheter looks benign. No skin rash. LABORATORIES: On March 11, white count 9900. Her creatinine over the weekend 1.0. Hep C was negative. All followup blood cultures at this point are negative. No new imaging. IMPRESSION: This patient is continuing to do quite well with respect to her tricuspid valve methicillin-sensitive Staphylococcus aureus endocarditis with septic pulmonary emboli. Note that the culture from the central line in the left neck that was pulled is culture negative. RECOMMENDATIONS: 1. Will continue with nafcillin through the new midline catheter through the morning of April 04. 2. We should check twice weekly labs including CBC and CMP. 3. I will see this patient with you on Tuesdays and Fridays now that we have clarified that the pain in her right hand has resolved.
--- NOTE | 2017-03-14 14:41 | NUR ---
Social Work-readiness for discharge: Data: EMR Reviewed. Pt is on day 25 of hospitalization for Sepsis per H&P. Pt is medically stable, but needs to remain at [facility] for course of IV abx. Referral has been made to [facility] Bed Unit, SW updated by UR specialist that [facility] may have a bed soon for pt. Resources have been provided to pt for Methadone Clinic at [facility]. Alternative resources provided to pt for disability information. SW will continue to follow. Assessment: pt who will need prison IV abx. Plan: Pt has been accepted at [facility], bed may be ready soon. SW will continue to follow. BINA Sanchez
--- NOTE | 2017-03-14 15:15 | NUR ---
POST HOSPITAL FOLLOW UP: Received call from Elisa Mcclendon at [facility] and she is having a bed open, she would like to do tomorrow. Called and left message in return, patient is ready but IJ is still in place and we need to know if she can go with this. Faxed updated clinicals to Elisa. Updated MAIL AGENT
--- NOTE | 2017-03-14 16:36 | NUR ---
Pain Patient still noted to have left shoulder pain scale of 6-8/10. Ativan 1 mg IV and Roxicodone 5 mg liquid given with relief. Patient napping in between meals, pleasant and compliant with care. Will continue to monitor.
[2017-03-15] VITALS (8 sets, daily range): BP systolic 119–128; BP diastolic 75–92; PULSE 80–107; RESP 15–18; O2SAT 97–100
[2017-03-15] MEDS: Nafcillin Inj 2,000 MG in Dextrose 5% Minibag Plus 100 ML IV SCH ×6 (00:14→20:02)
--- NOTE | 2017-03-15 05:25 | NUR ---
NOC/Activity Pt is alert and oriented. Pleasant and cooperative with care. VSS and has been afebrile. Denies chest pain, sob, n/v or abd discomfort. Continuing to monitor.
[2017-03-15] MEDS: guaiFENesin 600 mg ER12 Tablet PO SCH ×2 (08:34→21:30)
[2017-03-15] MEDS: Potassium Chloride 20 mEq SR Tablet PO SCH ×2 (08:35→16:48)
[2017-03-15] MEDS: oxyCODONE 1 mg/mL 5 mL Liquid PO PRN ×2 (08:36→17:38)
--- NOTE | 2017-03-15 08:51 | PCM.PNMED ---
Subjective Date of Service Mar 15, 2017 Subjective Denies any new issues/complaints Exam Vital Signs Vital Sign - Last Date Time Temp Pulse Resp B/P Pulse Ox O2 Delivery O2 Flow Rate FiO2 03/15/17 08:39 37.3 95 18 128/89 97 Room Air Intake and Output 03/14/17 03/14/17 03/15/17 Cumulative From/Thru 15:00 23:00 07:00 02/16/17 23:36 - 03/15/17 00:30 Intake Total 1825 ml 14720 ml Output Total 46912 ml Balance 1825 ml 24906 ml Intake Oral 1440 ml 14959 ml IV Total 385 ml 75741 ml Tube Feeding 400 ml Platelets 490 ml Tube Irrigant 30 ml Output Urine Total 23290 ml Stool Total 1525 ml Urine/Stool Mix 6450 ml # Voids 4 60 # Bowel Movements 26 Exam General: Alert, Cooperative, No Acute Distress Head: Normal Eyes: Scleral Anicteric Nose: Mucous Membr Moist/Saranap Mouth: Mucous Membr Moist/Saranap Neck: Supple Chest & Lungs: Chest Wall Normal, Clear to auscultation bilat Cardiovascular: Regular Rate/Rhythm Abdomen: Non-tender, Non-distended, Normoactive bowel tones, Soft Extremities: No cyanosis/clubbing/edema bilat Neurological: Grossly Neurologically Intact, Normal Speech IVs and Medications Medications Reviewed: Medications were reviewed in detail Lab and Diagnostics Result Diagram: 03/11/17 0535 03/12/17 0521 X-Rays, CTs and MRIs . X-RAY CHEST ONE VIEW, PORTABLE IMPRESSION: Diffuse bilateral patchy air space opacities suspicious for pneumonia. Dictated by: Delon Pelayo [facility] Interpreted: Jose Enrique York MD on 02/17/2017 X-RAY CHEST ONE VIEW, PORTABLE IMPRESSION: 1. Right internal jugular central venous catheter is in expected position. No pneumothorax. 2. Bilateral septic emboli as before. Dictated by: Lance Dan M.D. on 02/17/2017 CT CHEST, ABDOMEN AND PELVIS WITHOUT CONTRAST IMPRESSION: 1. Multiple bilateral cavitary lesions in the lungs consistent with recurrent septic emboli. The differential for these imaging findings includes inflammatory processes as well as metastatic disease but these are less likely given patient's prior history of septic emboli. 2. Slight asymmetric appearance of the right kidney with minimal perinephric stranding. However, evaluation for pyelonephritis is limited in the absence of intravenous contrast. Recommend correlation clinically. There is no hydronephrosis. 3. Mildly prominent bladder wall thickness likely due to incomplete distention. Recommend correlation with urinalysis. Dictated by: Sulaiman Haines M.D. on 02/17/2017 CT BRAIN WITHOUT CONTRAST IMPRESSION: 1. No acute intracranial abnormality. Dictated by: Sulaiman Haines M.D. on 02/17/2017 Cardiac Echo Impressions Echocardiogram Report Interpretation Summary Sinus tachycardia. Normal LV size and wall thickness. There is normal LV wall motion and systolic function. EF is 55-60%. There is severe RV dilation with normal wall motion. There is severe RA dilation. There is a 2.5x0.9 cm vegetation on the downstream side of the tricuspid valve leaflet. There is moderate tricuspid regurgittation. There is normal valve structure and function otherwise. Estimated PASP is 42 mm Hg assuming RA pressure of 3 mm Hg. Compared to prior study 08/04/2016 sinus tachycardia is new. RV dilation is new. Vegetation on the tricuspid valve is old. Tricuspid regurgitation is old Assessment & Plan 26 y/o female w/ a hx of tricuspid MSSA endocarditis, ongoing IVDA (meth and heroin), septic PE, pneumonia, presenting to the ED c/o dyspnea. Acute hypokalemia. Not present on admission. -Resolved after repletion Acute endocarditis; present on admission; ongoing -Sepsis and shock both resolved -White count normal, procal trending down -Daptomycin was discontinued 02/28/17 -Continue nafcillin through April 04 -Patient will remain here in the hospital until completion due to high risk of relapse unless she is accepted at [facility] -Concerned about persistent fever; repeat Chest CT non contrast shows either lymphadenopathy versus possible neoplastic disease 03/02/17, culture this seems to be resolving 03/09/17 -Discontinue azithromycin 500 mg daily and linezolid 600 mg twice a day for possible pneumonia patient seems to be improving no longer has coarse breath sounds or wheezes/Rales/rhonchi (last dose 03/08/2017) -Continue DuoNeb's when necessary -Culture central line tip (03/10/17) Severe acute kidney injury. Present on admission. Resolving - Likely secondary to sepsis and hypotension and staphyloccocal glomerulonephritis. - C3/C4 decrease indicating likely infectious glomerulonephritis - Creatinine initially greater than 8; still trending down currently 1.04 - Nephrology consulted Dr. Patel (signed off with the patient on 02/29/2016) - Avoid nephrotoxic agents. Opioid dependence, poa, chronic. -The patient is tearful and frustrated that she is not receiving higher doses of opioid analgesics. Patient is demonstrating opioid seeking behaviors. She does not have an outpatient prescription for opioid analgesics. She is receiving oxycodone 5 mg every 4 hours when necessary. Nurses have observed the patient to pocket her oxycodone and administer them IV to herself. She was counseled regarding unacceptability this behavior. - Patient was counseled that increasing her opioid dependence with inpatient opioid medications, especially parenteral, of adverse long-term consequences for her health. - Current pain complaints consist of a chronic musculoskeletal complaints for which opioids are not indicated, and sepsis related rigors and musculoskeletal complaints which may be managed with antipyretics and nonsteroidal analgesics. - She should not receive additional opioids - Ativan 1 mg every 4 hours and will start decreasing Roxicodone - Patient remains on gabapentin 600 mg twice a day; home doses 3 times a day Acute blood loss anemia; present on admission; active -Patient's hemoglobin this morning was 5.9 due to her disconnecting her central line to go the bathroom, with significant blood loss back through the line (02/26) -2 units PRBCs ordered stat and given on 02/27/17 -Patient's H&H is currently fluctuating between the low 8's-9's, transfuse if the patient drops below 8 Acute sepsis with septic shock. Present on admission; resolved - Pt presented with temp 37.9, HR 145, BP 86/52, WBC 15.4 with left shift, lactic of 2.6. MSSA endocarditis with secondary bacteremia with persistently positive blood cultures at 5 days; CT positive for mycotic pulmonary embolism. Bcx negative since 02/21. Procal is down trending - Off norepinephrine for the time being; maintain mean arterial pressure of 65 mmHg - Discontinue daptomycin - Continue nafcillin through April 04 - Continue to follow blood cultures and CBC - Continue to use central line; will consider PICC if this is necessary for the patient to be transferred to [facility] still waiting to hear and response Persistent Diarrhea; present on admission; resolved 03/09/17 -Patient continues to have diarrhea which was present when she initially presented and then decrease with loperamide -Could be a sign of opiate withdrawal although she has been on Roxicodone -Continue Lomotil prn -Continue Florastor twice a day -Previous C. difficile was negative; repeat C. 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 Present on admission. Ongoing - CT chest showed septic pulmonary emboli bilaterally - Echocardiogram demonstrates a tricuspid vegetation, moderate tricuspid regurg , right sided heart failure - Dr. Patel and Dr. Riddle indicate that the patient is not a candidate is not a candidate at the moment and will require 6 weeks of antibiotics in 6 months off heroin -Patient's attempted injection of Roxicodone into her central line that raises the question whether she will meet surgical criteria for valve replacement. -Continue Eliquis for anticoagulation Left shoulder pain, acute on chronic. Present on admission. Resolving - Pt has history of septic joint of the left sternoclavicular joint; has been seen by orthopedics during the stay - Aspirate cell count, Gram stain, culture ordered 02/22/17 - Physical therapy to work with shoulder Right ventricular heart failure with anasarca; present on admission; resolving -Severe right ventricular dilation and tricuspid regurg, with pulmonary hypertension likely secondary to pulmonary embolisms -Cardiology was consulted no longer following at this time continue to treat with antibiotics History of seizure disorder. POA and stable. -Patient states she is not on Lamictal at home -Titrating down Lamictal discontinue Lamictal 03/09/17 -Continuing topiramate, at 100 mg twice a day Hypokalemia, not present on admission. Stable -Continue potassium 20 mEq twice a day oral -Continue monitor Septic Encephalopathy; not present on admission; resolved. Patient had hallucinations, got out of bed and stooled on the floor. Likely related to either sepsis or combination of medications including morphine, Vistaril, and Ativan. - Stopped Vistaril except at bedtime, stop morphine, decrease Ativan - Resolved with reduction in pain medication - Currently on Seroquel which she apparently takes at home as well per her report Severe thrombocytopenia, acute. Present on admission. Resolved - Platelets reached as low as 31, due to sepsis - Platelets currently with in normal range Anion gap metabolic acidosis and lactic acidosis, acute. Present on admission, resolved. Secondary to lactic acidosis and PRISCILA. Gap 24. pH 7.26, pCO2 32.6, pO2 110, bicarb 14.2. - Resolved Hypovolemic Hyponatremia, acute. Present on admission. Resolved - Na 126 on admission. Pt receiving NS @ 150 ml/hr - Resolved History of IV drug abuse. POA and Active with heroin during the week prior to arrival. - Hepatitis C negative - HIV negative History of tobacco dependence. By mouth and active - Nicotine patch ordered Disposition: Antibiotics to continue through April 04. Patient will remain in-house for transfer to [facility] pending social work. GI Prophylaxis: H2 susan VTE Prophylaxis: Other (Pt has thrombocytopenia - no DVT prophylaxis for now.) VTE Mechanical Devices: Venous Foot Pump Resuscitation Status: CPR: Attempt Resuscitation David Sy Mar 15, 2017 08:51
--- NOTE | 2017-03-15 10:56 | NUR ---
SWING BED FOLLOW UP : Called and left additional message for Elisa Mcclendon, let her know patient is ready and still has central line but if PICC Is needed we will work to make this work as well. Updated BUS MONITOR Addendum: 03/15/17 at 1329 by JASON FONSECA CM Elisa called back and they did have the expected admit yesterday, so now they do not have room for this patient today.
--- NOTE | 2017-03-15 12:18 | PROG NOTE ---
[address] [address] PROGRESS NOTE PATIENT: RAJANI ALSTON : 1990 MR#: [id number] ADMIT: 02/17/2017 JOB ID: [id number] DATE: 03/15/2017 INFECTIOUS DISEASE FOLLOW UP NOTE: REASON FOR FOLLOWUP: Tricuspid endocarditis with multiple septic pulmonary emboli. INTERVAL HISTORY: Overnight, the patient has been feeling fairly well. She has been seen up and about walking, and reports that her energy is gradually increasing. No fevers, chills, sweats, or cough. She does still have some stiffness in the left shoulder which she believes is due to tendonitis. She notes it is slowly getting better. PHYSICAL EXAMINATION: Reveals an afebrile woman. Temperature 37.3, pulse 100, respiratory rate 18, blood pressure 128/89. She is saturating well on room air. Examination of the mental status reveals it to be completely clear. Oral cavity benign. Lungs clear. Cardiac tone without new murmur. Neurologically she is intact. She has increasing range of motion of that left shoulder but still a bit stiff. No new labs are available today. Recall that our followup blood cultures are now consistently negative on a regular basis and they are not drawn anymore at this point. IMPRESSION: This patient is doing very well at this juncture with respect to her MSSA tricuspid valve recurrent endocarditis with septic pulmonary emboli. RECOMMENDATION: 1. Will continue with nafcillin through the midline catheter through the morning of April 04. 2. Twice weekly labs including CBC and CMP are indicated. 3. I will see the patient every Tuesday and Tuesday and so I will see her again this Tuesday, March 18, unless called earlier.
--- NOTE | 2017-03-15 14:48 | NUR ---
SHIFT NOTE Pt is alert and oriented X4. Cooperative with care. C/o 8/10 left shoulder pain that was reduced to a 4/10 with roxycodone. Pt also c/o anxiety and requested her PRN ativan, pt did not display any sx of anxiety. Pt ambulated the hallways X4.
--- NOTE | 2017-03-15 16:04 | NUR ---
NUTRITION FOLLOW UP: ASSESS: 26 YO F admitted to CCU for sepsis, PRISCILA with infectious glomerulonephritis, and endocarditis. Pt having variable po intake with intake reported at refusal - 100% of meals over the past week. PMHX: Endocarditis, IVDA (meth and heroine), PE, PNA LABS: Reviewed. Alb 3.5 (03/11) MEDS: Reviewed. GI: BM x 1 (03/13) CURRENT WT: 69.8 kg, BMI 30.3 kg/m2, Admit wt: 70.3 kg, IBW: 52.3 kg DIET: General, Ensure at lunch, 2 milks per tray. PO intake avg ~50% x past 7 days. ESTIMATED NEEDS: Calories: 5897-6021 kcal/day (25-30 kcal/kg BW) Protein: 55-70 g/day (0.8-1.0 g/kg BW) NUTRITION DIAGNOSIS: 1.) Inadequate oral intake related to chronic disease as evidence by reported weakness prior to admit and history of endocarditis and IVD use.---IMPROVING. NUTRITION INTERVENTION: 1.) Continue current diet and supplement/snacks as ordered. 2.) On 02/[address] with pt about foods that she likes/dislikes and bland foods that will not exacerbate her nausea. Pt does not like Magic Cups or Mighty shakes because they are too chalky/she says she can taste the added protein. She loves milk so will send 2 cartons of whole milk on all trays. She likes portuguese yogurt (which the hospital does not have) so encouraged pt to call her mom and have her mom bring in the yogurt that she likes and any other food that the pt prefers. She agreed to try Vanilla Ensure on L tray. Discussed how she can dilute the Ensure with milk so that it isn't so chalky. Discussed adding extra butter and gravy to foods to sneak in more kcal. Discussed eating smaller, more frequent meals when appetite is down. Encourage pt to try to eat at least 50% of all meals. Pt expressed understanding and stated that she would try. MONITOR/EVALUATE: PO intake, weight, GI, labs, nutrition status. Follow per low nutrition risk guidelines.
[2017-03-16] VITALS (7 sets, daily range): BP systolic 109–127; BP diastolic 68–90; PULSE 78–105; RESP 16–17; O2SAT 96–100
[2017-03-16] MEDS: Nafcillin Inj 2,000 MG in Dextrose 5% Minibag Plus 100 ML IV SCH ×6 (00:17→21:22)
[2017-03-16] MEDS: oxyCODONE 1 mg/mL 5 mL Liquid PO PRN ×3 (06:03→21:20)
[2017-03-16 06:48] LABS: BASOPHILS % (AUTO) 0.7 % (0-3); EOSINOPHILS % (AUTO) 1.3 % (0-5); MONOCYTES % (AUTO) 6.7 % (4-12); Mean Corpuscular Hemoglobin 30.5 pg (27.0-35.0); Mean Corpuscular Volume 96.3 fL (81-100); NEUTROPHILS % (AUTO) 54.7 % (40-74); Platelet Count 392 bil/L (150-400)
[2017-03-16 07:28] LABS: Magnesium 1.8 mg/dL (1.6-2.6)
--- NOTE | 2017-03-16 07:38 | NUR ---
NOC activity Pt alert and oriented, cooperative with care. Denies chest pain, sob, n/v or abd discomfort. IV ABx administered as scheduled. VSS and has been afebrile overnight.
[2017-03-16] MEDS: guaiFENesin 600 mg ER12 Tablet PO SCH ×2 (08:26→21:21)
[2017-03-16] MEDS: Potassium Chloride 20 mEq SR Tablet PO SCH ×2 (08:26→17:36)
[2017-03-16] MEDS: Ondansetron 2 mg/mL 2 mL Inj IVPUSH PRN (08:35)
--- NOTE | 2017-03-16 17:16 | PCM.PNMED ---
Subjective Date of Service Mar 16, 2017 Subjective Patient reports no acute complaints overnight. Denies palpitations fever or chills. Did note some leaking from her midline catheter earlier today when she was being administered some medications, what is causing her no discomfort. Exam Vital Signs Vital Sign - Last Date Time Temp Pulse Resp B/P Pulse Ox O2 Delivery O2 Flow Rate FiO2 03/16/17 16:31 37.0 78 16 127/74 96 Room Air Intake and Output 03/15/17 03/15/17 03/16/17 Cumulative From/Thru 15:00 23:00 07:00 02/16/17 23:36 - 03/16/17 05:55 Intake Total 1584 ml 946 ml 49323 ml Output Total 84459 ml Balance 1584 ml 946 ml 24376 ml Intake Oral 1131 ml 946 ml 95565 ml IV Total 453 ml 05609 ml Tube Feeding 400 ml Platelets 490 ml Tube Irrigant 30 ml Output Urine Total 50043 ml Stool Total 1525 ml Urine/Stool Mix 6450 ml # Voids 5 2 67 # Bowel Movements 2 28 General: Alert, Oriented X3, Cooperative, No Acute Distress Mouth: Mucous Membr Moist/[place] Chest & Lungs: Clear to auscultation & percussion Cardiovascular: Regular Rate/Rhythm Abdomen: Non-tender, Non-distended Extremities: No cyanosis/clubbing/edma bilat Neurological: Grossly Neurologically Intact IVs and Medications Medications Reviewed: Medications were reviewed in detail Lab and Diagnostics Result Diagram: 03/16/1761503/16/17 0616 X-Rays, CTs and MRIs . X-RAY CHEST ONE VIEW, PORTABLE IMPRESSION: Diffuse bilateral patchy air space opacities suspicious for pneumonia. Dictated by: Delon Pelayo [facility] Interpreted: Jose Enrique York MD on 02/17/2017 X-RAY CHEST ONE VIEW, PORTABLE IMPRESSION: 1. Right internal jugular central venous catheter is in expected position. No pneumothorax. 2. Bilateral septic emboli as before. Dictated by: Lance Dan M.D. on 02/17/2017 CT CHEST, ABDOMEN AND PELVIS WITHOUT CONTRAST IMPRESSION: 1. Multiple bilateral cavitary lesions in the lungs consistent with recurrent septic emboli. The differential for these imaging findings includes inflammatory processes as well as metastatic disease but these are less likely given patient's prior history of septic emboli. 2. Slight asymmetric appearance of the right kidney with minimal perinephric stranding. However, evaluation for pyelonephritis is limited in the absence of intravenous contrast. Recommend correlation clinically. There is no hydronephrosis. 3. Mildly prominent bladder wall thickness likely due to incomplete distention. Recommend correlation with urinalysis. Dictated by: Sulaiman Haines M.D. on 02/17/2017 CT BRAIN WITHOUT CONTRAST IMPRESSION: 1. No acute intracranial abnormality. Dictated by: Sulaiman Haines M.D. on 02/17/2017 Cardiac Echo Impressions Echocardiogram Report Interpretation Summary Sinus tachycardia. Normal LV size and wall thickness. There is normal LV wall motion and systolic function. EF is 55-60%. There is severe RV dilation with normal wall motion. There is severe RA dilation. There is a 2.5x0.9 cm vegetation on the downstream side of the tricuspid valve leaflet. There is moderate tricuspid regurgittation. There is normal valve structure and function otherwise. Estimated PASP is 42 mm Hg assuming RA pressure of 3 mm Hg. Compared to prior study 08/04/2016 sinus tachycardia is new. RV dilation is new. Vegetation on the tricuspid valve is old. Tricuspid regurgitation is old Assessment & Plan 26 y/o female w/ a hx of tricuspid MSSA endocarditis, ongoing IVDA (meth and heroin), septic PE, pneumonia, presenting to the ED c/o dyspnea. Acute hypokalemia. Not present on admission. -Resolved after repletion Acute endocarditis; present on admission; ongoing -Sepsis and shock both resolved -White count normal, procal trending down -Daptomycin was discontinued 02/28/17 -Continue nafcillin through April [address] Lee -Patient will remain here in the hospital until completion due to high risk of relapse unless she is accepted at [facility] [place] -Concerned about persistent fever; repeat Chest CT non contrast shows either lymphadenopathy versus possible neoplastic disease 03/02/17, culture this seems to be resolving 03/09/17 -Discontinued azithromycin 500 mg daily and linezolid 600 mg twice a day for possible pneumonia patient seems to be improving no longer has coarse breath sounds or wheezes/Rales/rhonchi (last dose 03/08/2017) -Continue DuoNeb's when necessary -Culture central line tip (03/10/17) Severe acute kidney injury. Present on admission. Resolving - Likely secondary to sepsis and hypotension and staphyloccocal glomerulonephritis. - C3/C4 decrease indicating likely infectious glomerulonephritis - Creatinine initially greater than 8; still trending down currently 1.04 - Nephrology consulted Dr. Patel (signed off with the patient on 02/29/2016) - Avoid nephrotoxic agents. Opioid dependence, poa, chronic. -The patient is tearful and frustrated that she is not receiving higher doses of opioid analgesics. Patient is demonstrating opioid seeking behaviors. She does not have an outpatient prescription for opioid analgesics. She is receiving oxycodone 5 mg every 4 hours when necessary. Nurses have observed the patient to pocket her oxycodone and administer them IV to herself. She was counseled regarding unacceptability this behavior. - Patient was counseled that increasing her opioid dependence with inpatient opioid medications, especially parenteral, of adverse long-term consequences for her health. - Current pain complaints consist of a chronic musculoskeletal complaints for which opioids are not indicated, and sepsis related rigors and musculoskeletal complaints which may be managed with antipyretics and nonsteroidal analgesics. - She should not receive additional opioids - Ativan 1 mg every 4 hours and will start decreasing Roxicodone - Patient remains on gabapentin 600 mg twice a day; home doses 3 times a day Acute blood loss anemia; present on admission; active -Patient's hemoglobin this morning was 5.9 due to her disconnecting her central line to go the bathroom, with significant blood loss back through the line (02/26) -2 units PRBCs ordered stat and given on 02/27/17 -Patient's H&H is currently fluctuating between the low 8's-9's, transfuse if the patient drops below 8 Acute sepsis with septic shock. Present on admission; resolved - Pt presented with temp 37.9, HR 145, BP 86/52, WBC 15.4 with left shift, lactic of 2.6. MSSA endocarditis with secondary bacteremia with persistently positive blood cultures at 5 days; CT positive for mycotic pulmonary embolism. Bcx negative since 02/21. Procal is down trending - Off norepinephrine for the time being; maintain mean arterial pressure of 65 mmHg - Discontinue daptomycin - Continue nafcillin through April 04 - Continue to follow blood cultures and CBC - Central line is now removed, midline catheter in place which is leaking. IV nursing has evaluated attempted manipulation may consider replacement should dysfunction persist. Persistent Diarrhea; present on admission; resolved 8/23/17 -Patient continues to have diarrhea which was present when she initially presented and then decrease with loperamide -Could be a sign of opiate withdrawal although she has been on Roxicodone -Continue Lomotil prn -Continue Florastor twice a day -Previous C. difficile was negative; repeat C. 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 Present on admission. Ongoing - CT chest showed septic pulmonary emboli bilaterally - Echocardiogram demonstrates a tricuspid vegetation, moderate tricuspid regurg , right sided heart failure - Dr. Patel and Dr. Riddle indicate that the patient is not a candidate is not a candidate at the moment and will require 6 weeks of antibiotics in 6 months off heroin -Patient's attempted injection of Roxicodone into her central line that raises the question whether she will meet surgical criteria for valve replacement. -Continue Eliquis for anticoagulation Left shoulder pain, acute on chronic. Present on admission. Resolving - Pt has history of septic joint of the left sternoclavicular joint; has been seen by orthopedics during the stay - Aspirate cell count, Gram stain, culture ordered 02/22/17 - Physical therapy to work with shoulder Right ventricular heart failure with anasarca; present on admission; resolving -Severe right ventricular dilation and tricuspid regurg, with pulmonary hypertension likely secondary to pulmonary embolisms -Cardiology was consulted no longer following at this time continue to treat with antibiotics History of seizure disorder. POA and stable. -Patient states she is not on Lamictal at home -Titrating down Lamictal discontinue Lamictal 03/09/17 -Continuing topiramate, at 100 mg twice a day Hypokalemia, not present on admission. Stable -Continue potassium 20 mEq twice a day oral -Continue monitor Septic Encephalopathy; not present on admission; resolved. Patient had hallucinations, got out of bed and stooled on the floor. Likely related to either sepsis or combination of medications including morphine, Vistaril, and Ativan. - Stopped Vistaril except at bedtime, stop morphine, decrease Ativan - Resolved with reduction in pain medication - Currently on Seroquel which she apparently takes at home as well per her report Severe thrombocytopenia, acute. Present on admission. Resolved - Platelets reached as low as 31, due to sepsis - Platelets currently with in normal range Anion gap metabolic acidosis and lactic acidosis, acute. Present on admission, resolved. Secondary to lactic acidosis and PRISCILA. Gap 24. pH 7.26, pCO2 32.6, pO2 110, bicarb 14.2. - Resolved Hypovolemic Hyponatremia, acute. Present on admission. Resolved - Na 126 on admission. Pt receiving NS @ 150 ml/hr - Resolved History of IV drug abuse. POA and Active with heroin during the week prior to arrival. - Hepatitis C negative - HIV negative History of tobacco dependence. By mouth and active - Nicotine patch ordered Disposition: Antibiotics to continue through April 04. Patient will remain in-house for transfer to [facility] [place] pending social work. GI Prophylaxis: H2 susan VTE Prophylaxis: Other (Pt has thrombocytopenia - no DVT prophylaxis for now.) VTE Mechanical Devices: Venous Foot Pump Resuscitation Status: CPR: Attempt Resuscitation Time spent 25 minutes Zac Ernandez DO Mar 16, 2017 17:16
[2017-03-17] VITALS (8 sets, daily range): BP systolic 121–128; BP diastolic 72–90; PULSE 89–118; RESP 16–18; O2SAT 94–99
[2017-03-17] MEDS: Nafcillin Inj 2,000 MG in Dextrose 5% Minibag Plus 100 ML IV SCH ×7 (01:05→23:54)
[2017-03-17] MEDS ORDERED: Alum-Mag Hydrox-Simeth 30 mL Suspension PO PRN (03:50)
[2017-03-17] MEDS ORDERED: Polyethylene Glycol (PEG) 17 Gm Powder PO PRN (03:50)
[2017-03-17] MEDS ORDERED: Ondansetron 2 mg/mL 2 mL Inj IVPUSH PRN (03:50)
--- NOTE | 2017-03-17 05:32 | NUR ---
Uneventful Night Pt rested through the night with eyes closed. Complained of pain 8/10 x. 1 Administered pain medication, effective. No further complaints during the night. Denies cardiac pain/discomfort, SOB or n/v. Call light within reach, using appropriately. Frequent rounding in place. Pleasant and cooperative with care.
--- NOTE | 2017-03-17 07:37 | NUR ---
Social Work-continued d/c planning: Data: EMR Reviewed. Pt is on day 28 of hospitalization for Sepsis per H&P. Pt is medically stable, but needs to remain at [facility] for course of IV abx. Referral has been made to [facility], no bed at this point. Resources have been provided to pt for Methadone Clinic at [facility]. Alternative resources provided to pt for disability information. SW will continue to follow. 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 Plan: Pt has been accepted at [facility], no beds at this time. If no bed at [facility] pt will remain at [facility] for IV abx until 04/04. SW will continue to follow. BINA Sanchez
[2017-03-17] MEDS: oxyCODONE 1 mg/mL 5 mL Liquid PO PRN ×3 (07:52→21:28)
[2017-03-17] MEDS: guaiFENesin 600 mg ER12 Tablet PO SCH ×2 (08:13→21:28)
[2017-03-17] MEDS: Potassium Chloride 20 mEq SR Tablet PO SCH ×2 (08:13→16:28)
--- NOTE | 2017-03-17 10:53 | PCM.PNMED ---
Subjective Date of Service Mar 17, 2017 Subjective Pt reports no acute complaints overnight. Mid-line leakage reported yesterday now resolved. No other concerns at this time. Denies chest pains, sweats or chills. Exam Vital Signs Vital Sign - Last Date Time Temp Pulse Resp B/P Pulse Ox O2 Delivery O2 Flow Rate FiO2 03/17/17 08:40 37.2 89 18 121/72 97 Room Air Intake and Output 03/16/17 03/16/17 03/17/17 Cumulative From/Thru 15:00 23:00 07:00 02/16/17 23:36 - 03/17/17 05:51 Intake Total 886 ml 896 ml 66851 ml Output Total 62815 ml Balance 886 ml 896 ml 95774 ml Intake Oral 886 ml 473 ml 78460 ml IV Total 423 ml 79917 ml Tube Feeding 400 ml Platelets 490 ml Tube Irrigant 30 ml Output Urine Total 57964 ml Stool Total 1525 ml Urine/Stool Mix 6450 ml # Voids 4 1 72 # Bowel Movements 0 28 Exam General: Alert, Oriented X3, Cooperative, No Acute Distress Mouth: Mucous Membr Moist/[place] Chest & Lungs: Clear to auscultation & percussion Cardiovascular: Regular Rate/Rhythm Abdomen: Non-tender, Non-distended Extremities: No cyanosis/clubbing/edma bilat Neurological: Grossly Neurologically Intact IVs and Medications Medications Reviewed: Medications were reviewed in detail Lab and Diagnostics Result Diagram: 03/16/1761503/16/17 0616 X-Rays, CTs and MRIs . X-RAY CHEST ONE VIEW, PORTABLE IMPRESSION: Diffuse bilateral patchy air space opacities suspicious for pneumonia. Dictated by: Delon Pelayo [facility] Interpreted: Jose Enrique York MD on 02/17/2017 X-RAY CHEST ONE VIEW, PORTABLE IMPRESSION: 1. Right internal jugular central venous catheter is in expected position. No pneumothorax. 2. Bilateral septic emboli as before. Dictated by: Lance Dan M.D. on 02/17/2017 CT CHEST, ABDOMEN AND PELVIS WITHOUT CONTRAST IMPRESSION: 1. Multiple bilateral cavitary lesions in the lungs consistent with recurrent septic emboli. The differential for these imaging findings includes inflammatory processes as well as metastatic disease but these are less likely given patient's prior history of septic emboli. 2. Slight asymmetric appearance of the right kidney with minimal perinephric stranding. However, evaluation for pyelonephritis is limited in the absence of intravenous contrast. Recommend correlation clinically. There is no hydronephrosis. 3. Mildly prominent bladder wall thickness likely due to incomplete distention. Recommend correlation with urinalysis. Dictated by: Sulaiman Haines M.D. on 02/17/2017 CT BRAIN WITHOUT CONTRAST IMPRESSION: 1. No acute intracranial abnormality. Dictated by: Sulaiman Haines M.D. on 02/17/2017 Cardiac Echo Impressions Echocardiogram Report Interpretation Summary Sinus tachycardia. Normal LV size and wall thickness. There is normal LV wall motion and systolic function. EF is 55-60%. There is severe RV dilation with normal wall motion. There is severe RA dilation. There is a 2.5x0.9 cm vegetation on the downstream side of the tricuspid valve leaflet. There is moderate tricuspid regurgittation. There is normal valve structure and function otherwise. Estimated PASP is 42 mm Hg assuming RA pressure of 3 mm Hg. Compared to prior study 08/04/2016 sinus tachycardia is new. RV dilation is new. Vegetation on the tricuspid valve is old. Tricuspid regurgitation is old Assessment & Plan 26 y/o female w/ a hx of tricuspid MSSA endocarditis, ongoing IVDA (meth and heroin), septic PE, pneumonia, presenting to the ED c/o dyspnea. Acute hypokalemia. Not present on admission. -Resolved after repletion Acute endocarditis; present on admission; ongoing -Sepsis and shock both resolved -White count normal, procal trending down -Daptomycin was discontinued 02/28/17 -Continue nafcillin through April [address] Lee -Patient will remain here in the hospital until completion due to high risk of relapse unless she is accepted at [facility] -Concerned about persistent fever; repeat Chest CT non contrast shows either lymphadenopathy versus possible neoplastic disease 03/02/17, culture this seems to be resolving 03/09/17 -Discontinued azithromycin 500 mg daily and linezolid 600 mg twice a day for possible pneumonia patient seems to be improving no longer has coarse breath sounds or wheezes/Rales/rhonchi (last dose 03/08/2017) -Continue DuoNeb's when necessary -Culture central line tip (03/10/17) Severe acute kidney injury. Present on admission. Resolving - Likely secondary to sepsis and hypotension and staphyloccocal glomerulonephritis. - C3/C4 decrease indicating likely infectious glomerulonephritis - Creatinine initially greater than 8; still trending down currently 1.04 - Nephrology consulted Dr. Patel (signed off with the patient on 02/29/2016) - Avoid nephrotoxic agents. Opioid dependence, poa, chronic. -The patient is tearful and frustrated that she is not receiving higher doses of opioid analgesics. Patient is demonstrating opioid seeking behaviors. She does not have an outpatient prescription for opioid analgesics. She is receiving oxycodone 5 mg every 4 hours when necessary. Nurses have observed the patient to pocket her oxycodone and administer them IV to herself. She was counseled regarding unacceptability this behavior. - Patient was counseled that increasing her opioid dependence with inpatient opioid medications, especially parenteral, of adverse long-term consequences for her health. - Current pain complaints consist of a chronic musculoskeletal complaints for which opioids are not indicated, and sepsis related rigors and musculoskeletal complaints which may be managed with antipyretics and nonsteroidal analgesics. - She should not receive additional opioids - Ativan 1 mg every 4 hours and will start decreasing Roxicodone - Patient remains on gabapentin 600 mg twice a day; home doses 3 times a day Acute blood loss anemia; present on admission; active -Patient's hemoglobin this morning was 5.9 due to her disconnecting her central line to go the bathroom, with significant blood loss back through the line (02/26) -2 units PRBCs ordered stat and given on 02/27/17 -Patient's H&H is currently fluctuating between the low 8's-9's, transfuse if the patient drops below 8 Acute sepsis with septic shock. Present on admission; resolved - Pt presented with temp 37.9, HR 145, BP 86/52, WBC 15.4 with left shift, lactic of 2.6. MSSA endocarditis with secondary bacteremia with persistently positive blood cultures at 5 days; CT positive for mycotic pulmonary embolism. Bcx negative since 02/21. Procal is down trending - Off norepinephrine for the time being; maintain mean arterial pressure of 65 mmHg - Discontinue daptomycin - Continue nafcillin through April 04 - Continue to follow blood cultures and CBC - Central line is now removed, midline catheter in place which was leaking was adjusted, now functioning well. Persistent Diarrhea; present on admission; resolved 03/09/17 -Patient continues to have diarrhea which was present when she initially presented and then decrease with loperamide -Could be a sign of opiate withdrawal although she has been on Roxicodone -Continue Lomotil prn -Continue Florastor twice a day -Previous C. difficile was negative; repeat C. 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 Present on admission. Ongoing - CT chest showed septic pulmonary emboli bilaterally - Echocardiogram demonstrates a tricuspid vegetation, moderate tricuspid regurg , right sided heart failure - Dr. Patel and Dr. Riddle indicate that the patient is not a candidate is not a candidate at the moment and will require 6 weeks of antibiotics in 6 months off heroin -Patient's attempted injection of Roxicodone into her central line that raises the question whether she will meet surgical criteria for valve replacement. -Continue Eliquis for anticoagulation Left shoulder pain, acute on chronic. Present on admission. Resolving - Pt has history of septic joint of the left sternoclavicular joint; has been seen by orthopedics during the stay - Aspirate cell count, Gram stain, culture ordered 02/22/17 - Physical therapy to work with shoulder Right ventricular heart failure with anasarca; present on admission; resolving -Severe right ventricular dilation and tricuspid regurg, with pulmonary hypertension likely secondary to pulmonary embolisms -Cardiology was consulted no longer following at this time continue to treat with antibiotics History of seizure disorder. POA and stable. -Patient states she is not on Lamictal at home -Titrating down Lamictal discontinue Lamictal 03/09/17 -Continuing topiramate, at 100 mg twice a day Hypokalemia, not present on admission. Stable -Continue potassium 20 mEq twice a day oral -Continue monitor Septic Encephalopathy; not present on admission; resolved. Patient had hallucinations, got out of bed and stooled on the floor. Likely related to either sepsis or combination of medications including morphine, Vistaril, and Ativan. - Stopped Vistaril except at bedtime, stop morphine, decrease Ativan - Resolved with reduction in pain medication - Currently on Seroquel which she apparently takes at home as well per her report Severe thrombocytopenia, acute. Present on admission. Resolved - Platelets reached as low as 31, due to sepsis - Platelets currently with in normal range Anion gap metabolic acidosis and lactic acidosis, acute. Present on admission, resolved. Secondary to lactic acidosis and PRISCILA. Gap 24. pH 7.26, pCO2 32.6, pO2 110, bicarb 14.2. - Resolved Hypovolemic Hyponatremia, acute. Present on admission. Resolved - Na 126 on admission. Pt receiving NS @ 150 ml/hr - Resolved History of IV drug abuse. POA and Active with heroin during the week prior to arrival. - Hepatitis C negative - HIV negative History of tobacco dependence. By mouth and active - Nicotine patch ordered Disposition: Antibiotics to continue through April 04. Patient will remain in-house for transfer to [facility] [place] work. Pain Evaluation: Adequate Pain Control GI Prophylaxis: H2 susan VTE Prophylaxis: Other (Pt has thrombocytopenia - no DVT prophylaxis for now.) VTE Mechanical Devices: Venous Foot Pump Resuscitation Status: CPR: Attempt Resuscitation Time spent 25 minutes Zac Ernandez DO Mar 17, 2017 10:53
--- NOTE | 2017-03-17 18:12 | NUR ---
Activity Pt ind in room throughout this shift, tolerating diet well. Enc to amb in hallway. Pt eating dinner, sitting up in chair at bedside. Bed in lowest, locked position, call light in reach.
[2017-03-18] VITALS (8 sets, daily range): BP systolic 103–125; BP diastolic 69–84; PULSE 86–106; RESP 17–18; O2SAT 95–100
--- NOTE | 2017-03-18 03:37 | NUR ---
NOC shift note Vital signs stable overnight. Reported 01/24 left shoulder pain- medication effective. Calm and cooperative with care. Intentional rounding in place. Antibiotics given as ordered.
[2017-03-18] MEDS: Nafcillin Inj 2,000 MG in Dextrose 5% Minibag Plus 100 ML IV SCH ×5 (03:42→19:58)
[2017-03-18] MEDS: oxyCODONE 1 mg/mL 5 mL Liquid PO PRN ×2 (08:26→18:31)
[2017-03-18] MEDS: Potassium Chloride 20 mEq SR Tablet PO SCH ×2 (08:27→16:30)
[2017-03-18] MEDS: guaiFENesin 600 mg ER12 Tablet PO SCH (08:28)
--- NOTE | 2017-03-18 11:30 | PROG NOTE ---
[address] [address] PROGRESS NOTE PATIENT: RAJANI ALSTON : 1990 MR#: [id number] ADMIT: 02/17/2017 JOB ID: [id number] DATE: 03/18/2017 INFECTIOUS DISEASE FOLLOWUP NOTE: REASON FOR FOLLOWUP: Tricuspid valve endocarditis with septic pulmonary emboli. INTERVAL HISTORY: Over the past few days since I last saw the patient, she has been feeling very well. She reports no significant cough or shortness of breath, and she would like to stop her respiratory therapy treatments, as well as her Mucinex, as she no longer has any respiratory complaint. No chest pain. No fevers, chills, or sweats. Tolerating her IV antibiotics well. PHYSICAL EXAMINATION: Reveals an afebrile woman, very comfortable. Temp 36.9. Mental status normal. Oral cavity normal. Lungs: Clear. Cardiac tones without new murmur. Pulse 106, respiratory rate 18, blood pressure 125/84, saturating well on room air. LABORATORIES: Include a white count yesterday 10,400, platelet count normal at 392. Creatinine 0.93. LFT are normal. No other new labs to report. Our last blood cultures are now from over a week ago and are negative. The catheter that was removed on the was negative. IMAGING: No new imaging is available. IMPRESSION: This patient continues to do extremely well with respect to her methicillin-sensitive Staphylococcus aureus tricuspid valve endocarditis and septic pulmonary emboli. RECOMMENDATION: 1. Nafcillin through the morning of April 04. 2. Twice weekly labs with CBC and CMP. 3. I will see the patient on Tuesdays and Fridays, which will be this coming March 22 for the next visit. Do not hesitate to call if there are questions.
--- NOTE | 2017-03-18 16:16 | PCM.PNMED ---
Subjective Date of Service Mar 18, 2017 Subjective No new complaints today. Exam Vital Signs Vital Sign - Last Date Time Temp Pulse Resp B/P Pulse Ox O2 Delivery O2 Flow Rate FiO2 03/18/17 13:57 37.1 102 18 111/75 100 Room Air Intake and Output 03/17/17 03/17/17 03/18/17 Cumulative From/Thru 15:00 23:00 07:00 02/16/17 23:36 - 03/18/17 06:25 Intake Total 298 ml 800 ml 1092 ml 86648 ml Output Total 0 ml 07576 ml Balance 298 ml 800 ml 1092 ml 20083 ml Intake Oral 800 ml 300 ml 97803 ml IV Total 298 ml 792 ml 69885 ml Tube Feeding 400 ml Platelets 490 ml Tube Irrigant 30 ml Output Urine Total 0 ml 06814 ml Stool Total 1525 ml Urine/Stool Mix 6450 ml # Voids 3 75 # Bowel Movements 0 28 Exam Constitutional: Young female in no acute distress Head: Normocephalic atraumatic Chest: Clear to auscultation Cor: Regular rate and rhythm S1-S2 Abdomen: Soft nontender bowel sounds present Extremities: No pedal edema Neuro: Alert and oriented 3, motor strength is intact bilaterally IVs and Medications Medications Reviewed: Medications were reviewed in detail Lab and Diagnostics Laboratory Tests 72 Hours Test 03/16/17 06:16 White Blood Count 10.4th/mm3 (3.8-10.1) Red Blood Count 2.98mil/mm3 (3.90-5.20) Hemoglobin 9.1g/dL (12.0-15.6) Hematocrit 28.7% (35.0-46.0) Mean Corpuscular Volume 96.3fL (81-100) Mean Corpuscular Hemoglobin 30.5pg (27.0-35.0) Mean Corpuscular Hemoglobin Concent 31.7% (32.0-37.0) Red Cell Distribution Width 17.2% (12.3-15.4) Platelet Count 392bil/L (150-400) Neutrophils (%) (Auto) 54.7% (40-74) Lymphocytes (%) (Auto) 36.3% (14-46) Monocytes (%) (Auto) 6.7% (4-12) Eosinophils (%) (Auto) 1.3% (0-5) Basophils (%) (Auto) 0.7% (0-3) Hold Purple Top Tube Received (Received) Sodium Level 138mEq/L (134-144) Potassium Level 4.6mEq/L (3.5-5.2) Chloride Level 104mEq/L (97-108) Carbon Dioxide Level 18mmol/L (18-29) Blood Urea Nitrogen 7mg/dL (6-20) Creatinine 0.93mg/dL (0.57-1.00) Estimat Glomerular Filtration Rate 106mL/min (>59) Glucose Level 105mg/dL (60-99) Calcium Level 9.1mg/dL (8.5-10.1) Magnesium Level 1.8mg/dL (1.6-2.6) Hold Purvis Top Tube Received (Received) Result Diagram: 03/16/1761503/16/17615 X-Rays, CTs and MRIs . X-RAY CHEST ONE VIEW, PORTABLE IMPRESSION: Diffuse bilateral patchy air space opacities suspicious for pneumonia. Dictated by: Delon Pelayo [facility] Interpreted: Jose Enrique York MD on 02/17/2017 X-RAY CHEST ONE VIEW, PORTABLE IMPRESSION: 1. Right internal jugular central venous catheter is in expected position. No pneumothorax. 2. Bilateral septic emboli as before. Dictated by: Lance Dan M.D. on 02/17/2017 CT CHEST, ABDOMEN AND PELVIS WITHOUT CONTRAST IMPRESSION: 1. Multiple bilateral cavitary lesions in the lungs consistent with recurrent septic emboli. The differential for these imaging findings includes inflammatory processes as well as metastatic disease but these are less likely given patient's prior history of septic emboli. 2. Slight asymmetric appearance of the right kidney with minimal perinephric stranding. However, evaluation for pyelonephritis is limited in the absence of intravenous contrast. Recommend correlation clinically. There is no hydronephrosis. 3. Mildly prominent bladder wall thickness likely due to incomplete distention. Recommend correlation with urinalysis. Dictated by: Sulaiman Haines M.D. on 02/17/2017 CT BRAIN WITHOUT CONTRAST IMPRESSION: 1. No acute intracranial abnormality. Dictated by: Sulaiman Haines M.D. on 02/17/2017 Cardiac Echo Impressions Echocardiogram Report Interpretation Summary Sinus tachycardia. Normal LV size and wall thickness. There is normal LV wall motion and systolic function. EF is 55-60%. There is severe RV dilation with normal wall motion. There is severe RA dilation. There is a 2.5x0.9 cm vegetation on the downstream side of the tricuspid valve leaflet. There is moderate tricuspid regurgittation. There is normal valve structure and function otherwise. Estimated PASP is 42 mm Hg assuming RA pressure of 3 mm Hg. Compared to prior study 08/04/2016 sinus tachycardia is new. RV dilation is new. Vegetation on the tricuspid valve is old. Tricuspid regurgitation is old Assessment & Plan 26 y/o female w/ a hx of tricuspid MSSA endocarditis, ongoing IVDA (meth and heroin), septic PE, pneumonia, presenting to the ED c/o dyspnea. Acute hypokalemia. Not present on admission. -Resolved after repletion Acute endocarditis; present on admission; ongoing -Sepsis and shock both resolved -White count normal, procal trending down -Daptomycin was discontinued 02/28/17 -Continue nafcillin through April [address] Lee -Patient will remain here in the hospital until completion due to high risk of relapse unless she is [place] [facility] [place]Concerned about persistent fever; repeat Chest CT non contrast shows either lymphadenopathy versus possible neoplastic disease 03/02/17, culture this seems to be resolving 03/09/17 -Discontinued azithromycin 500 mg daily and linezolid 600 mg twice a day for possible pneumonia patient seems to be improving no longer has coarse breath sounds or wheezes/Rales/rhonchi (last dose 03/08/2017) -Continue DuoNeb's when necessary -Culture central line tip (03/10/17) Severe acute kidney injury. Present on admission. Resolving - Likely secondary to sepsis and hypotension and staphyloccocal glomerulonephritis. - C3/C4 decrease indicating likely infectious glomerulonephritis - Creatinine initially greater than 8; still trending down currently 1.04 - Nephrology consulted Dr. Patel (signed off with the patient on 02/29/2016) - Avoid nephrotoxic agents. Opioid dependence, poa, chronic. -The patient is tearful and frustrated that she is not receiving higher doses of opioid analgesics. Patient is demonstrating opioid seeking behaviors. She does not have an outpatient prescription for opioid analgesics. She is receiving oxycodone 5 mg every 4 hours when necessary. Nurses have observed the patient to pocket her oxycodone and administer them IV to herself. She was counseled regarding unacceptability this behavior. - Patient was counseled that increasing her opioid dependence with inpatient opioid medications, especially parenteral, of adverse long-term consequences for her health. - Current pain complaints consist of a chronic musculoskeletal complaints for which opioids are not indicated, and sepsis related rigors and musculoskeletal complaints which may be managed with antipyretics and nonsteroidal analgesics. - She should not receive additional opioids - Ativan 1 mg every 4 hours and will start decreasing Roxicodone - Patient remains on gabapentin 600 mg twice a day; home doses 3 times a day Acute blood loss anemia; present on admission; active -Patient's hemoglobin this morning was 5.9 due to her disconnecting her central line to go the bathroom, with significant blood loss back through the line (02/26) -2 units PRBCs ordered stat and given on 02/27/17 -Patient's H&H is currently fluctuating between the low 8's-9's, transfuse if the patient drops below 8 Acute sepsis with septic shock. Present on admission; resolved - Pt presented with temp 37.9, HR 145, BP 86/52, WBC 15.4 with left shift, lactic of 2.6. MSSA endocarditis with secondary bacteremia with persistently positive blood cultures at 5 days; CT positive for mycotic pulmonary embolism. Bcx negative since 02/21. Procal is down trending - Off norepinephrine for the time being; maintain mean arterial pressure of 65 mmHg - Discontinue daptomycin - Continue nafcillin through April 04 - Continue to follow blood cultures and CBC - Central line is now removed, midline catheter in place which was leaking was adjusted, now functioning well. Persistent Diarrhea; present on admission; resolved 03/09/17 -Patient continues to have diarrhea which was present when she initially presented and then decrease with loperamide -Could be a sign of opiate withdrawal although she has been on Roxicodone -Continue Lomotil prn -Continue Florastor twice a day -Previous C. difficile was negative; repeat C. 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 Present on admission. Ongoing - CT chest showed septic pulmonary emboli bilaterally - Echocardiogram demonstrates a tricuspid vegetation, moderate tricuspid regurg , right sided heart failure - Dr. Patel and Dr. Riddle indicate that the patient is not a candidate is not a candidate at the moment and will require 6 weeks of antibiotics in 6 months off heroin -Patient's attempted injection of Roxicodone into her central line that raises the question whether she will meet surgical criteria for valve replacement. -Continue Eliquis for anticoagulation Left shoulder pain, acute on chronic. Present on admission. Resolving - Pt has history of septic joint of the left sternoclavicular joint; has been seen by orthopedics during the stay - Aspirate cell count, Gram stain, culture ordered 02/22/17 - Physical therapy to work with shoulder Right ventricular heart failure with anasarca; present on admission; resolving -Severe right ventricular dilation and tricuspid regurg, with pulmonary hypertension likely secondary to pulmonary embolisms -Cardiology was consulted no longer following at this time continue to treat with antibiotics History of seizure disorder. POA and stable. -Patient states she is not on Lamictal at home -Titrating down Lamictal discontinue Lamictal 03/09/17 -Continuing topiramate, at 100 mg twice a day Hypokalemia, not present on admission. Stable -Continue potassium 20 mEq twice a day oral -Continue monitor Septic Encephalopathy; not present on admission; resolved. Patient had hallucinations, got out of bed and stooled on the floor. Likely related to either sepsis or combination of medications including morphine, Vistaril, and Ativan. - Stopped Vistaril except at bedtime, stop morphine, decrease Ativan - Resolved with reduction in pain medication - Currently on Seroquel which she apparently takes at home as well per her report Severe thrombocytopenia, acute. Present on admission. Resolved - Platelets reached as low as 31, due to sepsis - Platelets currently with in normal range Anion gap metabolic acidosis and lactic acidosis, acute. Present on admission, resolved. Secondary to lactic acidosis and PRISCILA. Gap 24. pH 7.26, pCO2 32.6, pO2 110, bicarb 14.2. - Resolved Hypovolemic Hyponatremia, acute. Present on admission. Resolved - Na 126 on admission. Pt receiving NS @ 150 ml/hr - Resolved History of IV drug abuse. POA and Active with heroin during the week prior to arrival. - Hepatitis C negative - HIV negative History of tobacco dependence. By mouth and active - Nicotine patch ordered Disposition: Antibiotics to continue through April 04. [place] will [place] in[place]house [place] [facility] [place] GI Prophylaxis: H2 susan VTE Prophylaxis: Other (Pt has thrombocytopenia - no DVT prophylaxis for now.) VTE Mechanical Devices: Venous Foot Pump Resuscitation Status: CPR: Attempt Resuscitation Time spent 30 minutes Ese Amanda MD Mar 18, 2017 16:16
--- NOTE | 2017-03-18 18:43 | NUR ---
Activity Pt OOB frequently this shift, amb in room and sitting on couch. Enc to amb in marin[place]. Bed in lowest, locked position and call light in reach.
[2017-03-19] MEDS: Nafcillin Inj 2,000 MG in Dextrose 5% Minibag Plus 100 ML IV SCH ×6 (00:33→19:57)
--- NOTE | 2017-03-19 03:57 | NUR ---
Uneventful night Patient has been pleasant, cooperative. Vital signs stable. Antibiotics infusing as ordered. Patient using call light appropriately, intentional rounding in place.
[2017-03-19 05:24] VITALS: BP 105/67; PULSE 90; RESP 18; O2SAT 96
[2017-03-19] MEDS: Potassium Chloride 20 mEq SR Tablet PO SCH ×2 (07:51→17:39)
[2017-03-19] MEDS: oxyCODONE 1 mg/mL 5 mL Liquid PO PRN ×3 (07:52→20:04)
--- NOTE | 2017-03-19 11:19 | PCM.PNMED ---
Subjective Date of Service Mar 19, 2017 Subjective Patient has no complaints this a.m. Exam Vital Signs Vital Sign - Last Date Time Temp Pulse Resp B/P Pulse Ox O2 Delivery O2 Flow Rate FiO2 03/19/17 05:24 36.8 90 18 105/67 96 Room Air Intake and Output 03/18/17 03/18/17 03/19/17 Cumulative From/Thru 15:00 23:00 07:00 02/16/17 23:36 - 03/19/17 06:08 Intake Total 1372 ml 846 ml 69489 ml Output Total 0 ml 30912 ml Balance 1372 ml 846 ml 25538 ml Intake Oral 900 ml 300 ml 92623 ml IV Total 472 ml 546 ml 98964 ml Tube Feeding 400 ml Platelets 490 ml Tube Irrigant 30 ml Output Urine Total 0 ml 79688 ml Stool Total 1525 ml Urine/Stool Mix 6450 ml # Voids 4 79 # Bowel Movements 1 29 Exam Constitutional: Young female in no acute distress Head: Normocephalic atraumatic Chest: Clear to auscultation Cor: Regular rate and rhythm S1-S2 Abdomen: Soft nontender bowel sounds present Extremities: No pedal edema Neuro: Alert and oriented 3, motor strength is intact bilaterally Psych: Mood and affect appropriate Lab and Diagnostics Result Diagram: 03/16/1761503/16/17615 X-Rays, CTs and MRIs . X-RAY CHEST ONE VIEW, PORTABLE IMPRESSION: Diffuse bilateral patchy air space opacities suspicious for pneumonia. Dictated by: Delon LEYVA Interpreted: Jose Enrique York MD on 02/17/2017 X-RAY CHEST ONE VIEW, PORTABLE IMPRESSION: 1. Right internal jugular central venous catheter is in expected position. No pneumothorax. 2. Bilateral septic emboli as before. Dictated by: Lance Dan M.D. on 02/17/2017 CT CHEST, ABDOMEN AND PELVIS WITHOUT CONTRAST IMPRESSION: 1. Multiple bilateral cavitary lesions in the lungs consistent with recurrent septic emboli. The differential for these imaging findings includes inflammatory processes as well as metastatic disease but these are less likely given patient's prior history of septic emboli. 2. Slight asymmetric appearance of the right kidney with minimal perinephric stranding. However, evaluation for pyelonephritis is limited in the absence of intravenous contrast. Recommend correlation clinically. There is no hydronephrosis. 3. Mildly prominent bladder wall thickness likely due to incomplete distention. Recommend correlation with urinalysis. Dictated by: Sulaiman Haines M.D. on 02/17/2017 CT BRAIN WITHOUT CONTRAST IMPRESSION: 1. No acute intracranial abnormality. Dictated by: Sulaiman Haines M.D. on 02/17/2017 Cardiac Echo Impressions Echocardiogram Report Interpretation Summary Sinus tachycardia. Normal LV size and wall thickness. There is normal LV wall motion and systolic function. EF is 55-60%. There is severe RV dilation with normal wall motion. There is severe RA dilation. There is a 2.5x0.9 cm vegetation on the downstream side of the tricuspid valve leaflet. There is moderate tricuspid regurgittation. There is normal valve structure and function otherwise. Estimated PASP is 42 mm Hg assuming RA pressure of 3 mm Hg. Compared to prior study 08/04/2016 sinus tachycardia is new. RV dilation is new. Vegetation on the tricuspid valve is old. Tricuspid regurgitation is old Assessment & Plan 26 y/o female w/ a hx of tricuspid MSSA endocarditis, ongoing IVDA (meth and heroin), septic PE, pneumonia, presenting to the ED c/o dyspnea. Acute hypokalemia. Not present on admission. -Resolved after repletion Acute endocarditis; present on admission; ongoing -Sepsis and shock both resolved -White count normal, procal trending down -Daptomycin was discontinued 02/28/17 -Continue nafcillin through April [address] Lee -Patient will remain here in the hospital until completion due to high risk of relapse unless she is [place] [facility] [place]Concerned about persistent fever; repeat Chest CT non contrast shows either lymphadenopathy versus possible neoplastic disease 03/02/17, culture this seems to be resolving 03/09/17 -Discontinued azithromycin 500 mg daily and linezolid 600 mg twice a day for possible pneumonia patient seems to be improving no longer has coarse breath sounds or wheezes/Rales/rhonchi (last dose 03/08/2017) -Continue DuoNeb's when necessary -Culture central line tip (03/10/17) Severe acute kidney injury. Present on admission. Resolving - Likely secondary to sepsis and hypotension and staphyloccocal glomerulonephritis. - C3/C4 decrease indicating likely infectious glomerulonephritis - Creatinine initially greater than 8; still trending down currently 1.04 - Nephrology consulted Dr. Patel (signed off with the patient on 02/29/2016) - Avoid nephrotoxic agents. Opioid dependence, poa, chronic. -The patient is tearful and frustrated that she is not receiving higher doses of opioid analgesics. Patient is demonstrating opioid seeking behaviors. She does not have an outpatient prescription for opioid analgesics. She is receiving oxycodone 5 mg every 4 hours when necessary. Nurses have observed the patient to pocket her oxycodone and administer them IV to herself. She was counseled regarding unacceptability this behavior. - Patient was counseled that increasing her opioid dependence with inpatient opioid medications, especially parenteral, of adverse long-term consequences for her health. - Current pain complaints consist of a chronic musculoskeletal complaints for which opioids are not indicated, and sepsis related rigors and musculoskeletal complaints which may be managed with antipyretics and nonsteroidal analgesics. - She should not receive additional opioids - Ativan 1 mg every 4 hours and will start decreasing Roxicodone - Patient remains on gabapentin 600 mg twice a day; home doses 3 times a day Acute blood loss anemia; present on admission; active -Patient's hemoglobin this morning was 5.9 due to her disconnecting her central line to go the bathroom, with significant blood loss back through the line (02/26) -2 units PRBCs ordered stat and given on 02/27/17 -Patient's H&H is currently fluctuating between the low 8's-9's, transfuse if the patient drops below 8 Acute sepsis with septic shock. Present on admission; resolved - Pt presented with temp 37.9, HR 145, BP 86/52, WBC 15.4 with left shift, lactic of 2.6. MSSA endocarditis with secondary bacteremia with persistently positive blood cultures at 5 days; CT positive for mycotic pulmonary embolism. Bcx negative since 02/21. Procal is down trending - Off norepinephrine for the time being; maintain mean arterial pressure of 65 mmHg - Discontinue daptomycin - Continue nafcillin through April 04 - Continue to follow blood cultures and CBC - Central line is now removed, midline catheter in place which was leaking was adjusted, now functioning well. Persistent Diarrhea; present on admission; resolved 03/09/17 -Patient continues to have diarrhea which was present when she initially presented and then decrease with loperamide -Could be a sign of opiate withdrawal although she has been on Roxicodone -Continue Lomotil prn -Continue Florastor twice a day -Previous C. difficile was negative; repeat C. 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 Present on admission. Ongoing - CT chest showed septic pulmonary emboli bilaterally - Echocardiogram demonstrates a tricuspid vegetation, moderate tricuspid regurg , right sided heart failure - Dr. Patel and Dr. Riddle indicate that the patient is not a candidate is not a candidate at the moment and will require 6 weeks of antibiotics in 6 months off heroin -Patient's attempted injection of Roxicodone into her central line that raises the question whether she will meet surgical criteria for valve replacement. -Continue Eliquis for anticoagulation Left shoulder pain, acute on chronic. Present on admission. Resolving - Pt has history of septic joint of the left sternoclavicular joint; has been seen by orthopedics during the stay - Aspirate cell count, Gram stain, culture ordered 02/22/17 - Physical therapy to work with shoulder Right ventricular heart failure with anasarca; present on admission; resolving -Severe right ventricular dilation and tricuspid regurg, with pulmonary hypertension likely secondary to pulmonary embolisms -Cardiology was consulted no longer following at this time continue to treat with antibiotics History of seizure disorder. POA and stable. -Patient states she is not on Lamictal at home -Titrating down Lamictal discontinue Lamictal 03/09/17 -Continuing topiramate, at 100 mg twice a day Hypokalemia, not present on admission. Stable -Continue potassium 20 mEq twice a day oral -Continue monitor Septic Encephalopathy; not present on admission; resolved. Patient had hallucinations, got out of bed and stooled on the floor. Likely related to either sepsis or combination of medications including morphine, Vistaril, and Ativan. - Stopped Vistaril except at bedtime, stop morphine, decrease Ativan - Resolved with reduction in pain medication - Currently on Seroquel which she apparently takes at home as well per her report Severe thrombocytopenia, acute. Present on admission. Resolved - Platelets reached as low as 31, due to sepsis - Platelets currently with in normal range Anion gap metabolic acidosis and lactic acidosis, acute. Present on admission, resolved. Secondary to lactic acidosis and PRISCILA. Gap 24. pH 7.26, pCO2 32.6, pO2 110, bicarb 14.2. - Resolved Hypovolemic Hyponatremia, acute. Present on admission. Resolved - Na 126 on admission. Pt receiving NS @ 150 ml/hr - Resolved History of IV drug abuse. POA and Active with heroin during the week prior to arrival. - Hepatitis C negative - HIV negative History of tobacco dependence. By mouth and active - Nicotine patch ordered Disposition: Antibiotics to continue through April 04. Patient will remain in[place]house for [place] [facility] [place]. GI Prophylaxis: H2 susan VTE Prophylaxis: Other (Pt has thrombocytopenia - no DVT prophylaxis for now.) VTE Mechanical Devices: Venous Foot Pump Resuscitation Status: CPR: Attempt Resuscitation Time spent 20 minutes Ese Amanda MD Mar 19, 2017 11:19
[2017-03-19 14:43] VITALS: BP 122/94; PULSE 105; RESP 20; O2SAT 97
--- NOTE | 2017-03-19 16:00 | NUR ---
Taking over care from Melvina CASTELLANOS.
[2017-03-19 20:11] VITALS: BP 116/82; PULSE 102; RESP 20; O2SAT 99
[2017-03-20] MEDS: Nafcillin Inj 2,000 MG in Dextrose 5% Minibag Plus 100 ML IV SCH ×6 (00:13→21:38)
--- NOTE | 2017-03-20 03:55 | NUR ---
NOC shift note Uneventful night. Patient requested HS meds at 1999, reported feeling tired. Slept through the night, but easily woke up with interventions and meds. Calm and cooperative. Vital signs stable. Antibiotics given as ordered. Intentional rounding.
[2017-03-20] MEDS: oxyCODONE 1 mg/mL 5 mL Liquid PO PRN ×3 (04:15→22:01)
[2017-03-20 04:30] VITALS: BP 108/74; PULSE 89; RESP 20; O2SAT 98
[2017-03-20 06:02] LABS: BASOPHILS % (AUTO) 0.9 % (0-3); EOSINOPHILS % (AUTO) 1.2 % (0-5); MONOCYTES % (AUTO) 6.8 % (4-12); Mean Corpuscular Hemoglobin 30.9 pg (27.0-35.0); Mean Corpuscular Volume 94.3 fL (81-100); NEUTROPHILS % (AUTO) 56.3 % (40-74); Platelet Count 376 bil/L (150-400)
[2017-03-20] MEDS: Potassium Chloride 20 mEq SR Tablet PO SCH ×2 (08:18→17:31)
[2017-03-20] MEDS ORDERED: 0.9% Sodium Chloride 250 ML ONE (08:24)
--- NOTE | 2017-03-20 11:01 | PCM.PNMED ---
Subjective Date of Service Mar 20, 2017 Subjective No new complaints. Patient sitting on couch speaking with her visitor Exam Vital Signs Vital Sign - Last Date Time Temp Pulse Resp B/P Pulse Ox O2 Delivery O2 Flow Rate FiO2 03/20/17 08:18 Supplement Oxygen 03/20/17 04:30 36.9 89 20 108/74 98 Intake and Output 03/19/17 03/19/17 03/20/17 Cumulative From/Thru 15:00 23:00 07:00 02/16/17 23:36 - 03/20/17 05:43 Intake Total 290 ml 945 ml 390 ml 04828 ml Output Total 91882 ml Balance 290 ml 945 ml 390 ml 84328 ml Intake Oral 800 ml 35737 ml IV Total 290 ml 145 ml 390 ml 80032 ml Tube Feeding 400 ml Platelets 490 ml Tube Irrigant 30 ml Output Urine Total 77340 ml Stool Total 1525 ml Urine/Stool Mix 6450 ml # Voids 4 83 # Bowel Movements 2 31 Exam Has occasional: Young female in no acute distress Head: Normocephalic atraumatic Chest: Clear to auscultation Cor: Regular rate and rhythm S1-S2 Abdomen: Soft nontender bowel sounds present Extremities: No pedal edema Psych: Mood and affect are appropriate Neuro: Alert and oriented 3, motor strength is intact bilaterally Lab and Diagnostics Result Diagram: 03/20/17 0538 03/20/17 0538 X-Rays, CTs and MRIs . X-RAY CHEST ONE VIEW, PORTABLE IMPRESSION: Diffuse bilateral patchy air space opacities suspicious for pneumonia. Dictated by: Delon Pelayo RR Interpreted: Jose Enrique York MD on 02/17/2017 X-RAY CHEST ONE VIEW, PORTABLE IMPRESSION: 1. Right internal jugular central venous catheter is in expected position. No pneumothorax. 2. Bilateral septic emboli as before. Dictated by: Lance Dan M.D. on 02/17/2017 CT CHEST, ABDOMEN AND PELVIS WITHOUT CONTRAST IMPRESSION: 1. Multiple bilateral cavitary lesions in the lungs consistent with recurrent septic emboli. The differential for these imaging findings includes inflammatory processes as well as metastatic disease but these are less likely given patient's prior history of septic emboli. 2. Slight asymmetric appearance of the right kidney with minimal perinephric stranding. However, evaluation for pyelonephritis is limited in the absence of intravenous contrast. Recommend correlation clinically. There is no hydronephrosis. 3. Mildly prominent bladder wall thickness likely due to incomplete distention. Recommend correlation with urinalysis. Dictated by: Sulaiman Haines M.D. on 02/17/2017 CT BRAIN WITHOUT CONTRAST IMPRESSION: 1. No acute intracranial abnormality. Dictated by: Sulaiman Haines M.D. on 02/17/2017 Cardiac Echo Impressions Echocardiogram Report Interpretation Summary Sinus tachycardia. Normal LV size and wall thickness. There is normal LV wall motion and systolic function. EF is 55-60%. There is severe RV dilation with normal wall motion. There is severe RA dilation. There is a 2.5x0.9 cm vegetation on the downstream side of the tricuspid valve leaflet. There is moderate tricuspid regurgittation. There is normal valve structure and function otherwise. Estimated PASP is 42 mm Hg assuming RA pressure of 3 mm Hg. Compared to prior study 08/04/2016 sinus tachycardia is new. RV dilation is new. Vegetation on the tricuspid valve is old. Tricuspid regurgitation is old Assessment & Plan 26 y/o female w/ a hx of tricuspid MSSA endocarditis, ongoing IVDA (meth and heroin), septic PE, pneumonia, presenting to the ED c/o dyspnea. Acute hypokalemia. Not present on admission. -Resolved after repletion Acute endocarditis; present on admission; ongoing -Sepsis and shock both resolved -White count normal, procal trending down -Daptomycin was discontinued 02/28/17 -Continue nafcillin through April [address] Lee -Patient will remain here in the hospital until completion due to high risk of relapse unless she is accepted at [facility] [place] -Concerned about persistent fever; repeat Chest CT non contrast shows either lymphadenopathy versus possible neoplastic disease 03/02/17, culture this seems to be resolving 03/09/17 -Discontinued azithromycin 500 mg daily and linezolid 600 mg twice a day for possible pneumonia patient seems to be improving no longer has coarse breath sounds or wheezes/Rales/rhonchi (last dose 03/08/2017) -Continue DuoNeb's when necessary -Culture central line tip (03/10/17) Severe acute kidney injury. Present on admission. Resolving - Likely secondary to sepsis and hypotension and staphyloccocal glomerulonephritis. - C3/C4 decrease indicating likely infectious glomerulonephritis - Creatinine initially greater than 8; still trending down currently 1.04 - Nephrology consulted Dr. Patel (signed off with the patient on 02/29/2016) - Avoid nephrotoxic agents. Opioid dependence, poa, chronic. -The patient is tearful and frustrated that she is not receiving higher doses of opioid analgesics. Patient is demonstrating opioid seeking behaviors. She does not have an outpatient prescription for opioid analgesics. She is receiving oxycodone 5 mg every 4 hours when necessary. Nurses have observed the patient to pocket her oxycodone and administer them IV to herself. She was counseled regarding unacceptability this behavior. - Patient was counseled that increasing her opioid dependence with inpatient opioid medications, especially parenteral, of adverse long-term consequences for her health. - Current pain complaints consist of a chronic musculoskeletal complaints for which opioids are not indicated, and sepsis related rigors and musculoskeletal complaints which may be managed with antipyretics and nonsteroidal analgesics. - She should not receive additional opioids - Ativan 1 mg every 4 hours and will start decreasing Roxicodone - Patient remains on gabapentin 600 mg twice a day; home doses 3 times a day Acute blood loss anemia; present on admission; active -Patient's hemoglobin this morning was 5.9 due to her disconnecting her central line to go the bathroom, with significant blood loss back through the line (02/26) -2 units PRBCs ordered stat and given on 02/27/17 -Patient's H&H is currently fluctuating between the low 8's-9's, transfuse if the patient drops below 8 Acute sepsis with septic shock. Present on admission; resolved - Pt presented with temp 37.9, HR 145, BP 86/52, WBC 15.4 with left shift, lactic of 2.6. MSSA endocarditis with secondary bacteremia with persistently positive blood cultures at 5 days; CT positive for mycotic pulmonary embolism. Bcx negative since 02/21. Procal is down trending - Off norepinephrine for the time being; maintain mean arterial pressure of 65 mmHg - Discontinue daptomycin - Continue nafcillin through April 04 - Continue to follow blood cultures and CBC - Central line is now removed, midline catheter in place which was leaking was adjusted, now functioning well. Persistent Diarrhea; present on admission; resolved 03/09/17 -Patient continues to have diarrhea which was present when she initially presented and then decrease with loperamide -Could be a sign of opiate withdrawal although she has been on Roxicodone -Continue Lomotil prn -Continue Florastor twice a day -Previous C. difficile was negative; repeat C. 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 Present on admission. Ongoing - CT chest showed septic pulmonary emboli bilaterally - Echocardiogram demonstrates a tricuspid vegetation, moderate tricuspid regurg , right sided heart failure - Dr. Patel and Dr. Riddle indicate that the patient is not a candidate is not a candidate at the moment and will require 6 weeks of antibiotics in 6 months off heroin -Patient's attempted injection of Roxicodone into her central line that raises the question whether she will meet surgical criteria for valve replacement. -Continue Eliquis for anticoagulation Left shoulder pain, acute on chronic. Present on admission. Resolving - Pt has history of septic joint of the left sternoclavicular joint; has been seen by orthopedics during the stay - Aspirate cell count, Gram stain, culture ordered 02/22/17 - Physical therapy to work with shoulder Right ventricular heart failure with anasarca; present on admission; resolving -Severe right ventricular dilation and tricuspid regurg, with pulmonary hypertension likely secondary to pulmonary embolisms -Cardiology was consulted no longer following at this time continue to treat with antibiotics History of seizure disorder. POA and stable. -Patient states she is not on Lamictal at home -Titrating down Lamictal discontinue Lamictal 03/09/17 -Continuing topiramate, at 100 mg twice a day Hypokalemia, not present on admission. Stable -Continue potassium 20 mEq twice a day oral -Continue monitor Septic Encephalopathy; not present on admission; resolved. Patient had hallucinations, got out of bed and stooled on the floor. Likely related to either sepsis or combination of medications including morphine, Vistaril, and Ativan. - Stopped Vistaril except at bedtime, stop morphine, decrease Ativan - Resolved with reduction in pain medication - Currently on Seroquel which she apparently takes at home as well per her report Severe thrombocytopenia, acute. Present on admission. Resolved - Platelets reached as low as 31, due to sepsis - Platelets currently with in normal range Anion gap metabolic acidosis and lactic acidosis, acute. Present on admission, resolved. Secondary to lactic acidosis and PRISCILA. Gap 24. pH 7.26, pCO2 32.6, pO2 110, bicarb 14.2. - Resolved Hypovolemic Hyponatremia, acute. Present on admission. Resolved - Na 126 on admission. Pt receiving NS @ 150 ml/hr - Resolved History of IV drug abuse. POA and Active with heroin during the week prior to arrival. - Hepatitis C negative - HIV negative History of tobacco dependence. By mouth and active - Nicotine patch ordered Disposition: Antibiotics to continue through April 04. Patient will remain in-house for transfer to [facility] pending social work. GI Prophylaxis: H2 susan VTE Prophylaxis: Other (Pt has thrombocytopenia - no DVT prophylaxis for now.) VTE Mechanical Devices: Venous Foot Pump Resuscitation Status: CPR: Attempt Resuscitation Time spent 20 minutes Ese Amanda MD Mar 20, 2017 11:01
[2017-03-20 15:10] VITALS: BP 123/78; PULSE 99; RESP 18; O2SAT 99
[2017-03-20 21:45] VITALS: BP 136/84; PULSE 98; RESP 18; O2SAT 98
[2017-03-21] MEDS: Nafcillin Inj 2,000 MG in Dextrose 5% Minibag Plus 100 ML IV SCH ×6 (00:55→20:21)
[2017-03-21 05:27] VITALS: BP 102/69; PULSE 92; RESP 18; O2SAT 97
--- NOTE | 2017-03-21 06:43 | NUR ---
Uneventful night: Pt requested pain medication with HS meds last evening. Has been able to sleep throughout the night, wakes easily for assessments.
[2017-03-21] MEDS: Potassium Chloride 20 mEq SR Tablet PO SCH ×2 (08:06→17:14)
[2017-03-21] MEDS: oxyCODONE 1 mg/mL 5 mL Liquid PO PRN ×2 (08:07→17:14)
--- NOTE | 2017-03-21 08:30 | NUR ---
Social Work-continued d/c planning: Data: EMR Reviewed. Pt is on day 32 of hospitalization for Sepsis per H&P. Pt is medically stable, but needs to remain at [facility] for course of IV abx. Referral has been made to [facility], no bed at this point. Resources have been provided to pt for Methadone Clinic at [facility]. Alternative resources provided to pt for disability information. SW will continue to follow. Assessment: pt who will need adjunct faculty for medical terminology IV abx. Plan: Pt has been accepted at [facility], no beds at this time. If no bed at [facility] pt will remain at [facility] for IV abx until 04/04. SW will continue to follow. BINA Sanchez
[2017-03-21 10:01] VITALS: BP 105/76; PULSE 93; RESP 18; O2SAT 98
[2017-03-21 13:28] VITALS: BP 109/71; PULSE 104; RESP 18; O2SAT 98
--- NOTE | 2017-03-21 13:54 | PCM.PNMED ---
Subjective Date of Service Mar 21, 2017 Subjective Patient without new complaint today. Exam Vital Signs Vital Sign - Last Date Time Temp Pulse Resp B/P Pulse Ox O2 Delivery O2 Flow Rate FiO2 03/21/17 13:28 37.2 104 18 109/71 98 Room Air Intake and Output 03/20/17 03/20/17 03/21/17 Cumulative From/Thru 15:00 23:00 07:00 02/16/17 23:36 - 03/21/17 06:39 Intake Total 475 ml 200 ml 580 ml 59434 ml Output Total 14585 ml Balance 475 ml 200 ml 580 ml 71798 ml Intake Oral 475 ml 200 ml 300 ml 29355 ml IV Total 280 ml 68474 ml Tube Feeding 400 ml Platelets 490 ml Tube Irrigant 30 ml Output Urine Total 28341 ml Stool Total 1525 ml Urine/Stool Mix 6450 ml # Voids 1 3 0 87 # Bowel Movements 0 0 31 Exam Constitutional l: Young female in no acute distress Head: Normocephalic atraumatic Chest: Clear to auscultation Cor: Regular rate and rhythm S1-S2 Abdomen: Soft nontender bowel sounds present Extremities: No pedal edema Neuro: Alert and oriented 3, motor strength is intact bilaterally Lab and Diagnostics Laboratory Tests 72 Hours Test 03/20/17 05:38 03/21/17 05:30 White Blood Count 11.1th/mm3 (3.8-10.1) Red Blood Count 3.14mil/mm3 (3.90-5.20) Hemoglobin 9.7g/dL (12.0-15.6) Hematocrit 29.6% (35.0-46.0) Mean Corpuscular Volume 94.3fL (81-100) Mean Corpuscular Hemoglobin 30.9pg (27.0-35.0) Mean Corpuscular Hemoglobin Concent 32.8% (32.0-37.0) Red Cell Distribution Width 17.5% (12.3-15.4) Platelet Count 376bil/L (150-400) Neutrophils (%) (Auto) 56.3% (40-74) Lymphocytes (%) (Auto) 34.0% (14-46) Monocytes (%) (Auto) 6.8% (4-12) Eosinophils (%) (Auto) 1.2% (0-5) Basophils (%) (Auto) 0.9% (0-3) Sodium Level 137mEq/L (134-144) 136mEq/L (134-144) Potassium Level 4.1mEq/L (3.5-5.2) 4.4mEq/L (3.5-5.2) Chloride Level 103mEq/L (97-108) 102mEq/L (97-108) Carbon Dioxide Level 16mmol/L (18-29) 16mmol/L (18-29) Blood Urea Nitrogen 12mg/dL (6-20) 16mg/dL (6-20) Creatinine 0.96mg/dL (0.57-1.00) 0.98mg/dL (0.57-1.00) Estimat Glomerular Filtration Rate 102mL/min (>59) 100mL/min (>59) Glucose Level 95mg/dL (60-99) 112mg/dL (60-99) Calcium Level 9.5mg/dL (8.5-10.1) 9.0mg/dL (8.5-10.1) Total Bilirubin 0.3mg/dL (0.0-1.2) Aspartate Amino Transf (AST/SGOT) 10U/L (0-50) Alanine Aminotransferase (ALT/SGPT) 5U/L (0-32) Alkaline Phosphatase 49U/L (25-150) Total Protein 8.6g/dL (6.4-8.4) Albumin 3.4g/dL (3.4-5.0) Result Diagram: 03/20/17 0538 03/21/17 0530 X-Rays, CTs and MRIs . X-RAY CHEST ONE VIEW, PORTABLE IMPRESSION: Diffuse bilateral patchy air space opacities suspicious for pneumonia. Dictated by: Delon Pelayo RRMaryjane Interpreted: Jose Enrique York MD on 02/17/2017 X-RAY CHEST ONE VIEW, PORTABLE IMPRESSION: 1. Right internal jugular central venous catheter is in expected position. No pneumothorax. 2. Bilateral septic emboli as before. Dictated by: Lance Dan M.D. on 02/17/2017 CT CHEST, ABDOMEN AND PELVIS WITHOUT CONTRAST IMPRESSION: 1. Multiple bilateral cavitary lesions in the lungs consistent with recurrent septic emboli. The differential for these imaging findings includes inflammatory processes as well as metastatic disease but these are less likely given patient's prior history of septic emboli. 2. Slight asymmetric appearance of the right kidney with minimal perinephric stranding. However, evaluation for pyelonephritis is limited in the absence of intravenous contrast. Recommend correlation clinically. There is no hydronephrosis. 3. Mildly prominent bladder wall thickness likely due to incomplete distention. Recommend correlation with urinalysis. Dictated by: Sulaiman Haines M.D. on 02/17/2017 CT BRAIN WITHOUT CONTRAST IMPRESSION: 1. No acute intracranial abnormality. Dictated by: Sulaiman Haines M.D. on 02/17/2017 Cardiac Echo Impressions Echocardiogram Report Interpretation Summary Sinus tachycardia. Normal LV size and wall thickness. There is normal LV wall motion and systolic function. EF is 55-60%. There is severe RV dilation with normal wall motion. There is severe RA dilation. There is a 2.5x0.9 cm vegetation on the downstream side of the tricuspid valve leaflet. There is moderate tricuspid regurgittation. There is normal valve structure and function otherwise. Estimated PASP is 42 mm Hg assuming RA pressure of 3 mm Hg. Compared to prior study 08/04/2016 sinus tachycardia is new. RV dilation is new. Vegetation on the tricuspid valve is old. Tricuspid regurgitation is old Assessment & Plan 26 y/o female w/ a hx of tricuspid MSSA endocarditis, ongoing IVDA (meth and heroin), septic PE, pneumonia, presenting to the ED c/o dyspnea. Acute hypokalemia. Not present on admission. -Resolved after repletion Acute endocarditis; present on admission; ongoing -Sepsis and shock both resolved -White count normal, procal trending down -Daptomycin was discontinued 02/28/17 -Continue nafcillin through April [address] Lee -Patient will remain here in the hospital until completion due to high risk of relapse unless she is accepted at [facility] [place] -Concerned about persistent fever; repeat Chest CT non contrast shows either lymphadenopathy versus possible neoplastic disease 03/02/17, culture this seems to be resolving 03/09/17 -Discontinued azithromycin 500 mg daily and linezolid 600 mg twice a day for possible pneumonia patient seems to be improving no longer has coarse breath sounds or wheezes/Rales/rhonchi (last dose 03/08/2017) -Continue DuoNeb's when necessary -Culture central line tip (03/10/17) Severe acute kidney injury. Present on admission. Resolving - Likely secondary to sepsis and hypotension and staphyloccocal glomerulonephritis. - C3/C4 decrease indicating likely infectious glomerulonephritis - Creatinine initially greater than 8; still trending down currently 1.04 - Nephrology consulted Dr. Patel (signed off with the patient on 02/29/2016) - Avoid nephrotoxic agents. Opioid dependence, poa, chronic. -The patient is tearful and frustrated that she is not receiving higher doses of opioid analgesics. Patient is demonstrating opioid seeking behaviors. She does not have an outpatient prescription for opioid analgesics. She is receiving oxycodone 5 mg every 4 hours when necessary. Nurses have observed the patient to pocket her oxycodone and administer them IV to herself. She was counseled regarding unacceptability this behavior. - Patient was counseled that increasing her opioid dependence with inpatient opioid medications, especially parenteral, of adverse long-term consequences for her health. - Current pain complaints consist of a chronic musculoskeletal complaints for which opioids are not indicated, and sepsis related rigors and musculoskeletal complaints which may be managed with antipyretics and nonsteroidal analgesics. - She should not receive additional opioids - Ativan 1 mg every 4 hours and will start decreasing Roxicodone - Patient remains on gabapentin 600 mg twice a day; home doses 3 times a day Acute blood loss anemia; present on admission; active -Patient's hemoglobin this morning was 5.9 due to her disconnecting her central line to go the bathroom, with significant blood loss back through the line (02/26) -2 units PRBCs ordered stat and given on 02/27/17 -Patient's H&H is currently fluctuating between the low 8's-9's, transfuse if the patient drops below 8 Acute sepsis with septic shock. Present on admission; resolved - Pt presented with temp 37.9, HR 145, BP 86/52, WBC 15.4 with left shift, lactic of 2.6. MSSA endocarditis with secondary bacteremia with persistently positive blood cultures at 5 days; CT positive for mycotic pulmonary embolism. Bcx negative since 02/21. Procal is down trending - Off norepinephrine for the time being; maintain mean arterial pressure of 65 mmHg - Discontinue daptomycin - Continue nafcillin through April 04 - Continue to follow blood cultures and CBC - Central line is now removed, midline catheter in place which was leaking was adjusted, now functioning well. Persistent Diarrhea; present on admission; resolved 03/09/17 -Patient continues to have diarrhea which was present when she initially presented and then decrease with loperamide -Could be a sign of opiate withdrawal although she has been on Roxicodone -Continue Lomotil prn -Continue Florastor twice a day -Previous C. difficile was negative; repeat C. 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 Present on admission. Ongoing - CT chest showed septic pulmonary emboli bilaterally - Echocardiogram demonstrates a tricuspid vegetation, moderate tricuspid regurg , right sided heart failure - Dr. Patel and Dr. Riddle indicate that the patient is not a candidate is not a candidate at the moment and will require 6 weeks of antibiotics in 6 months off heroin -Patient's attempted injection of Roxicodone into her central line that raises the question whether she will meet surgical criteria for valve replacement. -Continue Eliquis for anticoagulation Left shoulder pain, acute on chronic. Present on admission. Resolving - Pt has history of septic joint of the left sternoclavicular joint; has been seen by orthopedics during the stay - Aspirate cell count, Gram stain, culture ordered 02/22/17 - Physical therapy to work with shoulder Right ventricular heart failure with anasarca; present on admission; resolving -Severe right ventricular dilation and tricuspid regurg, with pulmonary hypertension likely secondary to pulmonary embolisms -Cardiology was consulted no longer following at this time continue to treat with antibiotics History of seizure disorder. POA and stable. -Patient states she is not on Lamictal at home -Titrating down Lamictal discontinue Lamictal 03/09/17 -Continuing topiramate, at 100 mg twice a day Hypokalemia, not present on admission. Stable -Continue potassium 20 mEq twice a day oral -Continue monitor Septic Encephalopathy; not present on admission; resolved. Patient had hallucinations, got out of bed and stooled on the floor. Likely related to either sepsis or combination of medications including morphine, Vistaril, and Ativan. - Stopped Vistaril except at bedtime, stop morphine, decrease Ativan - Resolved with reduction in pain medication - Currently on Seroquel which she apparently takes at home as well per her report Severe thrombocytopenia, acute. Present on admission. Resolved - Platelets reached as low as 31, due to sepsis - Platelets currently with in normal range Anion gap metabolic acidosis and lactic acidosis, acute. Present on admission, resolved. Secondary to lactic acidosis and PRISCILA. Gap 24. pH 7.26, pCO2 32.6, pO2 110, bicarb 14.2. - Resolved Hypovolemic Hyponatremia, acute. Present on admission. Resolved - Na 126 on admission. Pt receiving NS @ 150 ml/hr - Resolved History of IV drug abuse. POA and Active with heroin during the week prior to arrival. - Hepatitis C negative - HIV negative History of tobacco dependence. By mouth and active - Nicotine patch ordered Disposition: Antibiotics to continue through April 04. Patient will remain in-house for transfer to [facility] pending social work. GI Prophylaxis: H2 susan VTE Prophylaxis: Other (Pt has thrombocytopenia - no DVT prophylaxis for now.) VTE Mechanical Devices: Venous Foot Pump Resuscitation Status: CPR: Attempt Resuscitation Time spent 20 minutes Ese Amanda MD Mar 21, 2017 13:54
[2017-03-21 17:08] VITALS: BP 113/72; PULSE 100; RESP 18; O2SAT 99
[2017-03-21 20:25] VITALS: BP 108/74; PULSE 98; RESP 18; O2SAT 97
[2017-03-22] MEDS: Nafcillin Inj 2,000 MG in Dextrose 5% Minibag Plus 100 ML IV SCH ×6 (00:45→20:50)
[2017-03-22 01:11] VITALS: BP 121/69; PULSE 102; RESP 16; O2SAT 98
--- NOTE | 2017-03-22 04:32 | NUR ---
Uneventful night: Pt able to sleep through the night. IV antibiotics administered as ordered. Has not requested any PRN pain meds this shift thus far. PRN Ativan administered at bedtime.
[2017-03-22 05:14] VITALS: BP 106/74; PULSE 99; RESP 18; O2SAT 98
[2017-03-22] MEDS: oxyCODONE 1 mg/mL 5 mL Liquid PO PRN ×2 (05:36→16:29)
[2017-03-22] MEDS: Potassium Chloride 20 mEq SR Tablet PO SCH ×2 (08:54→17:33)
--- NOTE | 2017-03-22 10:48 | PROG NOTE ---
[address] [address] PROGRESS NOTE PATIENT: RAJANI ALSTON : 1990 MR#: [id number] ADMIT: 02/17/2017 JOB ID: [id number] DATE: 03/22/2017 INFECTIOUS DISEASE FOLLOWUP NOTE: REASON FOR FOLLOWUP: Endocarditis. INTERVAL HISTORY: Over the weekend, the patient has been relatively stable. She reports she is extremely bored and depressed with her long confinement. She denies any fevers, chills, or sweats. No chest pain, cough, shortness of breath, or nausea or vomiting. PHYSICAL EXAMINATION: Reveals an afebrile woman. Temp 37.1, pulse 99, respiratory rate 18, blood pressure 106/74. She is saturating well on room air, in no acute distress. Examination of the oral cavity unremarkable. Her lungs are clear. Cardiac tones: Regular rate and rhythm without murmur. Abdomen: Benign. No skin rash. Her midline catheter in the right upper extremity looks benign. LABORATORIES: Include white count last done a couple of days ago 11,000. Creatinine last done yesterday at 0.98. Albumin 3.4. LFT normal. Hep C is negative. All followup cultures remain negative. IMAGING: No new imaging. 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 She continues to cruise along with respect to her therapy and now it is just a matter of keeping her in the hospital if possible, so we can finish. RECOMMENDATIONS: 1. Nafcillin through April 04. 2. Continue twice weekly labs, CBC and CMP. 3. I will see the patient again this March 25, if she remains at this facility.
--- NOTE | 2017-03-22 13:31 | PCM.PNMED ---
Subjective Date of Service Mar 22, 2017 Subjective Patient has no complaint today. Exam Vital Signs Vital Sign - Last Date Time Temp Pulse Resp B/P Pulse Ox O2 Delivery O2 Flow Rate FiO2 03/22/17 05:14 37.1 99 18 106/74 98 Room Air Intake and Output 03/21/17 03/21/17 03/22/17 Cumulative From/Thru 15:00 23:00 07:00 02/16/17 23:36 - 03/22/17 05:42 Intake Total 1272 ml 810 ml 81979 ml Output Total 1 ml 46521 ml Balance 1272 ml 809 ml 60892 ml Intake Oral 1272 ml 400 ml 20056 ml IV Total 410 ml 49040 ml Tube Feeding 400 ml Platelets 490 ml Tube Irrigant 30 ml Output Urine Total 1 ml 18655 ml Stool Total 1525 ml Urine/Stool Mix 6450 ml # Voids 3 90 # Bowel Movements 0 31 Exam Constitutional: Young female in no acute distress Head: Normocephalic atraumatic Chest: Clear to auscultation Cor: Regular rate and rhythm S1-S2 Abdomen: Soft nontender bowel sounds present Extremities: No pedal edema Neuro: Alert and oriented 3, motor strength is intact bilaterally Lab and Diagnostics Laboratory Tests 72 Hours Test 03/20/17 05:38 03/21/17 05:30 White Blood Count 11.1th/mm3 (3.8-10.1) Red Blood Count 3.14mil/mm3 (3.90-5.20) Hemoglobin 9.7g/dL (12.0-15.6) Hematocrit 29.6% (35.0-46.0) Mean Corpuscular Volume 94.3fL (81-100) Mean Corpuscular Hemoglobin 30.9pg (27.0-35.0) Mean Corpuscular Hemoglobin Concent 32.8% (32.0-37.0) Red Cell Distribution Width 17.5% (12.3-15.4) Platelet Count 376bil/L (150-400) Neutrophils (%) (Auto) 56.3% (40-74) Lymphocytes (%) (Auto) 34.0% (14-46) Monocytes (%) (Auto) 6.8% (4-12) Eosinophils (%) (Auto) 1.2% (0-5) Basophils (%) (Auto) 0.9% (0-3) Sodium Level 137mEq/L (134-144) 136mEq/L (134-144) Potassium Level 4.1mEq/L (3.5-5.2) 4.4mEq/L (3.5-5.2) Chloride Level 103mEq/L (97-108) 102mEq/L (97-108) Carbon Dioxide Level 16mmol/L (18-29) 16mmol/L (18-29) Blood Urea Nitrogen 12mg/dL (6-20) 16mg/dL (6-20) Creatinine 0.96mg/dL (0.57-1.00) 0.98mg/dL (0.57-1.00) Estimat Glomerular Filtration Rate 102mL/min (>59) 100mL/min (>59) Glucose Level 95mg/dL (60-99) 112mg/dL (60-99) Calcium Level 9.5mg/dL (8.5-10.1) 9.0mg/dL (8.5-10.1) Total Bilirubin 0.3mg/dL (0.0-1.2) Aspartate Amino Transf (AST/SGOT) 10U/L (0-50) Alanine Aminotransferase (ALT/SGPT) 5U/L (0-32) Alkaline Phosphatase 49U/L (25-150) Total Protein 8.6g/dL (6.4-8.4) Albumin 3.4g/dL (3.4-5.0) Result Diagram: 03/20/17 0538 03/21/17 0530 X-Rays, CTs and MRIs . X-RAY CHEST ONE VIEW, PORTABLE IMPRESSION: Diffuse bilateral patchy air space opacities suspicious for pneumonia. Dictated by: Delon Pelayo RRMaryjane Interpreted: Jose Enrique York MD on 02/17/2017 X-RAY CHEST ONE VIEW, PORTABLE IMPRESSION: 1. Right internal jugular central venous catheter is in expected position. No pneumothorax. 2. Bilateral septic emboli as before. Dictated by: Lance Dan M.D. on 02/17/2017 CT CHEST, ABDOMEN AND PELVIS WITHOUT CONTRAST IMPRESSION: 1. Multiple bilateral cavitary lesions in the lungs consistent with recurrent septic emboli. The differential for these imaging findings includes inflammatory processes as well as metastatic disease but these are less likely given patient's prior history of septic emboli. 2. Slight asymmetric appearance of the right kidney with minimal perinephric stranding. However, evaluation for pyelonephritis is limited in the absence of intravenous contrast. Recommend correlation clinically. There is no hydronephrosis. 3. Mildly prominent bladder wall thickness likely due to incomplete distention. Recommend correlation with urinalysis. Dictated by: Sulaiman Haines M.D. on 02/17/2017 CT BRAIN WITHOUT CONTRAST IMPRESSION: 1. No acute intracranial abnormality. Dictated by: Sulaiman Haines M.D. on 02/17/2017 Cardiac Echo Impressions Echocardiogram Report Interpretation Summary Sinus tachycardia. Normal LV size and wall thickness. There is normal LV wall motion and systolic function. EF is 55-60%. There is severe RV dilation with normal wall motion. There is severe RA dilation. There is a 2.5x0.9 cm vegetation on the downstream side of the tricuspid valve leaflet. There is moderate tricuspid regurgittation. There is normal valve structure and function otherwise. Estimated PASP is 42 mm Hg assuming RA pressure of 3 mm Hg. Compared to prior study 08/04/2016 sinus tachycardia is new. RV dilation is new. Vegetation on the tricuspid valve is old. Tricuspid regurgitation is old Assessment & Plan 26 y/o female w/ a hx of tricuspid MSSA endocarditis, ongoing IVDA (meth and heroin), septic PE, pneumonia, presenting to the ED c/o dyspnea. Acute hypokalemia. Not present on admission. -Resolved after repletion Acute endocarditis; present on admission; ongoing -Sepsis and shock both resolved -White count normal, procal trending down -Daptomycin was discontinued 02/28/17 -Continue nafcillin through April [address] Lee -Patient will remain here in the hospital until completion due to high risk of relapse unless she is accepted at [facility] – [place] -Concerned about persistent fever; repeat Chest CT non contrast shows either lymphadenopathy versus possible neoplastic disease 03/02/17, culture this seems to be resolving 03/09/17 -Discontinued azithromycin 500 mg daily and linezolid 600 mg twice a day for possible pneumonia patient seems to be improving no longer has coarse breath sounds or wheezes/Rales/rhonchi (last dose 03/08/2017) -Continue DuoNeb's when necessary -Culture central line tip (03/10/17) -May be able to go T [facility] with swing bed on March 25 to complete course of antibiotics Severe acute kidney injury. Present on admission. Resolved - Likely secondary to sepsis and hypotension and staphyloccocal glomerulonephritis. - C3/C4 decrease indicating likely infectious glomerulonephritis - Creatinine initially greater than 8; still trending down currently 1.04 - Nephrology consulted Dr. Patel (signed off with the patient on 02/29/2016) - Avoid nephrotoxic agents. Opioid dependence, poa, chronic. -The patient is tearful and frustrated that she is not receiving higher doses of opioid analgesics. Patient is demonstrating opioid seeking behaviors. She does not have an outpatient prescription for opioid analgesics. She is receiving oxycodone 5 mg every 4 hours when necessary. Nurses have observed the patient to pocket her oxycodone and administer them IV to herself. She was counseled regarding unacceptability this behavior. - Patient was counseled that increasing her opioid dependence with inpatient opioid medications, especially parenteral, of adverse long-term consequences for her health. - Current pain complaints consist of a chronic musculoskeletal complaints for which opioids are not indicated, and sepsis related rigors and musculoskeletal complaints which may be managed with antipyretics and nonsteroidal analgesics. - She should not receive additional opioids - Ativan 1 mg every 4 hours and will start decreasing Roxicodone - Patient remains on gabapentin 600 mg twice a day; home doses 3 times a day Acute blood loss anemia; present on admission; active -Patient's hemoglobin this morning was 5.9 due to her disconnecting her central line to go the bathroom, with significant blood loss back through the line (02/26) -2 units PRBCs ordered stat and given on 02/27/17 -Patient's H&H is currently fluctuating between the low 8's-9's, transfuse if the patient drops below 8 Acute sepsis with septic shock. Present on admission; resolved - Pt presented with temp 37.9, HR 145, BP 86/52, WBC 15.4 with left shift, lactic of 2.6. MSSA endocarditis with secondary bacteremia with persistently positive blood cultures at 5 days; CT positive for mycotic pulmonary embolism. Bcx negative since 02/21. Procal is down trending - Off norepinephrine for the time being; maintain mean arterial pressure of 65 mmHg - Discontinue daptomycin - Continue nafcillin through April 04 - Continue to follow blood cultures and CBC - Central line is now removed, midline catheter in place which was leaking was adjusted, now functioning well. Persistent Diarrhea; present on admission; resolved 03/09/17 -Patient continues to have diarrhea which was present when she initially presented and then decrease with loperamide -Could be a sign of opiate withdrawal although she has been on Roxicodone -Continue Lomotil prn -Continue Florastor twice a day -Previous C. difficile was negative; repeat C. 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 Present on admission. Ongoing - CT chest showed septic pulmonary emboli bilaterally - Echocardiogram demonstrates a tricuspid vegetation, moderate tricuspid regurg , right sided heart failure - Dr. Patel and Dr. Riddle indicate that the patient is not a candidate is not a candidate at the moment and will require 6 weeks of antibiotics in 6 months off heroin -Patient's attempted injection of Roxicodone into her central line that raises the question whether she will meet surgical criteria for valve replacement. -Continue Eliquis for anticoagulation Left shoulder pain, acute on chronic. Present on admission. Resolving - Pt has history of septic joint of the left sternoclavicular joint; has been seen by orthopedics during the stay - Aspirate cell count, Gram stain, culture ordered 02/22/17 - Physical therapy to work with shoulder Right ventricular heart failure with anasarca; present on admission; resolving -Severe right ventricular dilation and tricuspid regurg, with pulmonary hypertension likely secondary to pulmonary embolisms -Cardiology was consulted no longer following at this time continue to treat with antibiotics History of seizure disorder. POA and stable. -Patient states she is not on Lamictal at home -Titrating down Lamictal discontinue Lamictal 03/09/17 -Continuing topiramate, at 100 mg twice a day Hypokalemia, not present on admission. Stable -Continue potassium 20 mEq twice a day oral -Continue monitor Septic Encephalopathy; not present on admission; resolved. Patient had hallucinations, got out of bed and stooled on the floor. Likely related to either sepsis or combination of medications including morphine, Vistaril, and Ativan. - Stopped Vistaril except at bedtime, stop morphine, decrease Ativan - Resolved with reduction in pain medication - Currently on Seroquel which she apparently takes at home as well per her report Severe thrombocytopenia, acute. Present on admission. Resolved - Platelets reached as low as 31, due to sepsis - Platelets currently with in normal range Anion gap metabolic acidosis and lactic acidosis, acute. Present on admission, resolved. Secondary to lactic acidosis and PRISCILA. Gap 24. pH 7.26, pCO2 32.6, pO2 110, bicarb 14.2. - Resolved Hypovolemic Hyponatremia, acute. Present on admission. Resolved - Resolved History of IV drug abuse. POA and Active with heroin during the week prior to arrival. - Hepatitis C negative - HIV negative History of tobacco dependence. By mouth and active - Nicotine patch ordered Disposition: Antibiotics to continue through April 04. Patient will remain in-house for transfer to [facility] – [place] pending social work. GI Prophylaxis: H2 susan VTE Prophylaxis: Other (Pt has thrombocytopenia - no DVT prophylaxis for now.) VTE Mechanical Devices: Venous Foot Pump Resuscitation Status: CPR: Attempt Resuscitation Time spent 20 minutes Ese Amanda MD Mar 22, 2017 13:31
[2017-03-22 14:26] VITALS: BP 112/69; PULSE 106; RESP 22; O2SAT 98
--- NOTE | 2017-03-22 14:29 | NUR ---
NUTRITION FOLLOW UP: ASSESS: 26 YO F admitted with endocarditis, emboli on IV antibiotics. Pt continues with variable po intake, averaging 50%. PMHX: Endocarditis, IVDA (meth and heroine), PE, PNA LABS: Reviewed. Alb 3.4, Glu 112 MEDS: Reviewed. GI: BM x 2 (03/19) CURRENT WT: 69.8 kg, BMI 30.3 kg/m2, Admit wt: 70.3 kg, IBW: 52.3 kg DIET: General, Ensure at lunch, 2 milks per tray. PO intake avg ~51% x past 7 days. ESTIMATED NEEDS: Calories: 2164-1955 kcal/day (25-30 kcal/kg BW) Protein: 55-70 g/day (0.8-1.0 g/kg BW) NUTRITION DIAGNOSIS: 1.) Inadequate oral intake related to chronic disease as evidence by reported weakness prior to admit and history of endocarditis and IVD use.---IMPROVING. NUTRITION INTERVENTION: 1.) Continue current diet and supplement/snacks as ordered. 2.) On 02/[address] with pt about foods that she likes/dislikes and bland foods that will not exacerbate her nausea. Pt does not like Magic Cups or Mighty shakes because they are too chalky/she says she can taste the added protein. She loves milk so will send 2 cartons of whole milk on all trays. She likes divehi yogurt (which the hospital does not have) so encouraged pt to call her mom and have her mom bring in the yogurt that she likes and any other food that the pt prefers. She agreed to try Vanilla Ensure on L tray. Discussed how she can dilute the Ensure with milk so that it isn't so chalky. Discussed adding extra butter and gravy to foods to sneak in more kcal. Discussed eating smaller, more frequent meals when appetite is down. Encourage pt to try to eat at least 50% of all meals. Pt expressed understanding and stated that she would try. MONITOR/EVALUATE: PO intake, weight, GI, labs, nutrition status. Follow per low nutrition risk guidelines.
[2017-03-22 20:04] VITALS: BP 129/88; PULSE 104; RESP 18
[2017-03-23] MEDS: Nafcillin Inj 2,000 MG in Dextrose 5% Minibag Plus 100 ML IV SCH ×6 (00:27→20:44)
[2017-03-23 04:13] VITALS: BP 115/76; PULSE 95; RESP 16; O2SAT 99
--- NOTE | 2017-03-23 07:39 | PCM.PNMED ---
Subjective Date of Service Mar 23, 2017 Subjective Doing well. Left shoulder pain stable. No chest pain, or dyspnea. No fevers or chills. Good energy and appetite. Exam Vital Signs Vital Sign - Last Date Time Temp Pulse Resp B/P Pulse Ox O2 Delivery O2 Flow Rate FiO2 03/23/17 04:13 37.2 95 16 115/76 99 Room Air Intake and Output 03/22/17 03/22/17 03/23/17 Cumulative From/Thru 15:00 23:00 07:00 02/16/17 23:36 - 03/23/17 05:39 Intake Total 1737 ml 823 ml 207536 ml Output Total 10452 ml Balance 1737 ml 823 ml 87982 ml Intake Oral 1350 ml 540 ml 97155 ml IV Total 387 ml 283 ml 39488 ml Tube Feeding 400 ml Platelets 490 ml Tube Irrigant 30 ml Output Urine Total 91145 ml Stool Total 1525 ml Urine/Stool Mix 6450 ml # Voids 3 2 95 # Bowel Movements 1 0 32 Exam Alert and oriented. No distress. Anicteric sclera Lungs clear heart regular Abdomen soft No leg edema No rash IVs and Medications Medications Reviewed: Medications were reviewed in detail Lab and Diagnostics Result Diagram: 03/20/17 0538 03/21/17 0530 X-Rays, CTs and MRIs . X-RAY CHEST ONE VIEW, PORTABLE IMPRESSION: Diffuse bilateral patchy air space opacities suspicious for pneumonia. Dictated by: Delon Pelayo [facility] Interpreted: Jose Enrique York MD on 02/17/2017 X-RAY CHEST ONE VIEW, PORTABLE IMPRESSION: 1. Right internal jugular central venous catheter is in expected position. No pneumothorax. 2. Bilateral septic emboli as before. Dictated by: Lance Dan M.D. on 02/17/2017 CT CHEST, ABDOMEN AND PELVIS WITHOUT CONTRAST IMPRESSION: 1. Multiple bilateral cavitary lesions in the lungs consistent with recurrent septic emboli. The differential for these imaging findings includes inflammatory processes as well as metastatic disease but these are less likely given patient's prior history of septic emboli. 2. Slight asymmetric appearance of the right kidney with minimal perinephric stranding. However, evaluation for pyelonephritis is limited in the absence of intravenous contrast. Recommend correlation clinically. There is no hydronephrosis. 3. Mildly prominent bladder wall thickness likely due to incomplete distention. Recommend correlation with urinalysis. Dictated by: Sulaiman Haines M.D. on 02/17/2017 CT BRAIN WITHOUT CONTRAST IMPRESSION: 1. No acute intracranial abnormality. Dictated by: Sulaiman Haines M.D. on 02/17/2017 Cardiac Echo Impressions Echocardiogram Report Interpretation Summary Sinus tachycardia. Normal LV size and wall thickness. There is normal LV wall motion and systolic function. EF is 55-60%. There is severe RV dilation with normal wall motion. There is severe RA dilation. There is a 2.5x0.9 cm vegetation on the downstream side of the tricuspid valve leaflet. There is moderate tricuspid regurgittation. There is normal valve structure and function otherwise. Estimated PASP is 42 mm Hg assuming RA pressure of 3 mm Hg. Compared to prior study 08/04/2016 sinus tachycardia is new. RV dilation is new. Vegetation on the tricuspid valve is old. Tricuspid regurgitation is old Assessment & Plan 26 y/o female w/ a hx of tricuspid MSSA endocarditis, ongoing IVDA (meth and heroin), septic PE, pneumonia, presenting to the ED c/o dyspnea. #. Acute MSSA endocarditis; present on admission; ongoing and improving. -Sepsis and shock both resolved -White count normal, procal trending down -Daptomycin was discontinued 02/28/17 -Continue nafcillin through April [address] Lee -Patient will remain here in the hospital until completion due to high risk of relapse unless she is accepted at [facility] [place] -Concerned about persistent fever; repeat Chest CT non contrast shows either lymphadenopathy versus possible neoplastic disease 03/02/17, culture this seems to be resolving 03/09/17 -Discontinued azithromycin 500 mg daily and linezolid 600 mg twice a day for possible pneumonia patient seems to be improving no longer has coarse breath sounds or wheezes/Rales/rhonchi (last dose 03/08/2017) -Continue DuoNeb's when necessary -Culture central line tip (03/10/17) -May be able to go T [facility] with swing bed on March 25 to complete course of antibiotics Continue Nafcillin. #. Severe acute kidney injury. Present on admission. Resolved - Likely secondary to sepsis and hypotension and staphyloccocal glomerulonephritis. - C3/C4 decrease indicating likely infectious glomerulonephritis - Creatinine initially greater than 8; still trending down currently 1.04 - Nephrology consulted Dr. Patel (signed off with the patient on 02/29/2016) - Avoid nephrotoxic agents. #. Opioid dependence, poa, chronic. Stable. -The patient is tearful and frustrated that she is not receiving higher doses of opioid analgesics. Patient is demonstrating opioid seeking behaviors. She does not have an outpatient prescription for opioid analgesics. She is receiving oxycodone 5 mg every 4 hours when necessary. Nurses have observed the patient to pocket her oxycodone and administer them IV to herself. She was counseled regarding unacceptability this behavior. - Patient was counseled that increasing her opioid dependence with inpatient opioid medications, especially parenteral, of adverse long-term consequences for her health. - Current pain complaints consist of a chronic musculoskeletal complaints for which opioids are not indicated, and sepsis related rigors and musculoskeletal complaints which may be managed with antipyretics and nonsteroidal analgesics. - She should not receive additional opioids - Ativan 1 mg every 4 hours and will start decreasing Roxicodone - Patient remains on gabapentin 600 mg twice a day; home doses 3 times a day Possible clean and sober house after discharge. Acute blood loss anemia; present on admission; active and improving. -Patient's hemoglobin this morning was 5.9 due to her disconnecting her central line to go the bathroom, with significant blood loss back through the line (02/26) -2 units PRBCs ordered stat and given on 02/27/17 -Patient's H&H is currently fluctuating between the low 8's-9's, transfuse if the patient drops below 8 Acute sepsis with septic shock. Present on admission; resolved - Pt presented with temp 37.9, HR 145, BP 86/52, WBC 15.4 with left shift, lactic of 2.6. MSSA endocarditis with secondary bacteremia with persistently positive blood cultures at 5 days; CT positive for mycotic pulmonary embolism. Bcx negative since 02/21. Procal is down trending - Off norepinephrine for the time being; maintain mean arterial pressure of 65 mmHg - Discontinue daptomycin - Continue nafcillin through April 04 - Continue to follow blood cultures and CBC - Central line is now removed, midline catheter in place which was leaking was adjusted, now functioning well. Persistent Diarrhea; present on admission; resolved 03/09/17 -Patient continues to have diarrhea which was present when she initially presented and then decrease with loperamide -Could be a sign of opiate withdrawal although she has been on Roxicodone -Continue Lomotil prn -Continue Florastor twice a day -Previous C. difficile was negative; repeat C. 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 Present on admission. Ongoing and improving. - CT chest showed septic pulmonary emboli bilaterally - Echocardiogram demonstrates a tricuspid vegetation, moderate tricuspid regurg , right sided heart failure - Dr. Patel and Dr. Riddle indicate that the patient is not a candidate is not a candidate at the moment and will require 6 weeks of antibiotics in 6 months off heroin -Patient's attempted injection of Roxicodone into her central line that raises the question whether she will meet surgical criteria for valve replacement. -Continue Eliquis for anticoagulation Left shoulder pain, acute on chronic. Present on admission. Resolving - Pt has history of septic joint of the left sternoclavicular joint; has been seen by orthopedics during the stay - Aspirate cell count, Gram stain, culture ordered 02/22/17 - Physical therapy to work with shoulder, continue Right ventricular heart failure with anasarca; present on admission; resolving -Severe right ventricular dilation and tricuspid regurg, with pulmonary hypertension likely secondary to pulmonary embolisms -Cardiology was consulted no longer following at this time continue to treat with antibiotics History of seizure disorder. POA and stable. -Patient states she is not on Lamictal at home -Titrating down Lamictal discontinue Lamictal 03/09/17 -Continuing topiramate, at 100 mg twice a day Hypokalemia, not present on admission. Stable -Continue potassium 20 mEq twice a day oral -Continue monitor Septic Encephalopathy; not present on admission; resolved. Patient had hallucinations, got out of bed and stooled on the floor. Likely related to either sepsis or combination of medications including morphine, Vistaril, and Ativan. - Stopped Vistaril except at bedtime, stop morphine, decrease Ativan - Resolved with reduction in pain medication - Currently on Seroquel which she apparently takes at home as well per her report Severe thrombocytopenia, acute. Present on admission. Resolved - Platelets reached as low as 31, due to sepsis - Platelets currently with in normal range Anion gap metabolic acidosis and lactic acidosis, acute. Present on admission, resolved. Secondary to lactic acidosis and PRISCILA. Gap 24. pH 7.26, pCO2 32.6, pO2 110, bicarb 14.2. - Resolved Hypovolemic Hyponatremia, acute. Present on admission. Resolved - Resolved History of IV drug abuse. POA and Active with heroin during the week prior to arrival. - Hepatitis C negative - HIV negative History of tobacco dependence. By mouth and active - Nicotine patch ordered Disposition: Antibiotics to continue through April 04. Patient will remain in-house for transfer to [facility] [facility] pending social work. GI Prophylaxis: H2 susan VTE Prophylaxis: Other (Pt has thrombocytopenia - no DVT prophylaxis for now.) VTE Mechanical Devices: Venous Foot Pump Resuscitation Status: CPR: Attempt Resuscitation Mitul Barrera MD Mar 23, 2017 07:39
[2017-03-23] MEDS: oxyCODONE 1 mg/mL 5 mL Liquid PO PRN ×3 (08:07→20:47)
[2017-03-23] MEDS: Potassium Chloride 20 mEq SR Tablet PO SCH ×2 (08:07→17:56)
[2017-03-23] MEDS: LORazepam 1 mg Tablet PO PRN ×3 (08:08→20:46)
[2017-03-23 08:30] VITALS: PULSE 92; RESP 18; O2SAT 97
[2017-03-23 14:01] VITALS: BP 115/76; PULSE 91; RESP 16; O2SAT 99
[2017-03-23] MEDS ORDERED: 0.9% Sodium Chloride 250 ML ONE (16:28)
--- NOTE | 2017-03-23 17:36 | NUR ---
Social Work-continued d/c planning: Data: EMR Reviewed. Pt is on day 34 of hospitalization for Sepsis per H&P. Pt is medically stable, but needs to remain at [facility] for course of IV abx. Referral has been made to [facility] Swing Bed Unit, no bed at this point. Resources have been provided to pt for Methadone Clinic at [facility]. Alternative resources provided to pt for disability information. SW will continue to follow. Assessment: pt who will need terminal worker IV abx. Plan: Pt has been accepted at [facility] B[facility], no beds at this time. If no bed at [facility] pt will remain at [facility] for IV abx until 04/04. SW will continue to follow. BINA Sanchez
[2017-03-23 20:50] VITALS: BP 110/76; PULSE 97; RESP 16; O2SAT 98
[2017-03-24] MEDS: Nafcillin Inj 2,000 MG in Dextrose 5% Minibag Plus 100 ML IV SCH ×6 (00:20→19:43)
[2017-03-24 04:43] VITALS: BP 103/68; PULSE 96; RESP 16; O2SAT 97
--- NOTE | 2017-03-24 06:56 | NUR ---
Uneventful Night pt able to sleep during the night with minimal interruptions. VSS, afebrile, on RA. Midline IV did not have any leaking issues during the night, NS at TKO, getting ABX q4h as ordered, site is patent at this time. pt is A&Ox4, able to make needs known. using call light appropriately, placed within reach. hourly rounding in effect.
[2017-03-24] MEDS: Potassium Chloride 20 mEq SR Tablet PO SCH ×2 (07:41→19:44)
[2017-03-24] MEDS: LORazepam 1 mg Tablet PO PRN ×3 (07:46→21:41)
[2017-03-24] MEDS: oxyCODONE 1 mg/mL 5 mL Liquid PO PRN ×3 (07:46→21:35)
[2017-03-24 08:15] VITALS: PULSE 93; RESP 18; O2SAT 95
[2017-03-24 13:00] VITALS: BP 102/71; PULSE 96; RESP 16; O2SAT 99
--- NOTE | 2017-03-24 13:36 | PCM.PNMED ---
Subjective Date of Service Mar 24, 2017 Subjective She is doing well today. No problems overnight. No fevers or chills. No cough or shortness of breath. No abdominal pain. She is persistent and chronic left shoulder pain. No difficulty with bowel or bladder. No overnight events noted. Exam Vital Signs Vital Sign - Last Date Time Temp Pulse Resp B/P Pulse Ox O2 Delivery O2 Flow Rate FiO2 03/24/17 13:00 36.8 96 16 102/71 99 Room Air Intake and Output 03/23/17 03/23/17 03/24/17 Cumulative From/Thru 15:00 23:00 07:00 02/16/17 23:36 - 03/24/17 06:55 Intake Total 1350 ml 200 ml 786991 ml Output Total 1075 ml 21856 ml Balance 275 ml 200 ml 13071 ml Intake Oral 1350 ml 200 ml 04916 ml IV Total 18160 ml Tube Feeding 400 ml Platelets 490 ml Tube Irrigant 30 ml Output Urine Total 1075 ml 44953 ml Stool Total 1525 ml Urine/Stool Mix 6450 ml # Voids 1 96 # Bowel Movements 1 0 33 Exam Alert and oriented -3, no distress. Fluent speech Anicteric sclera. Lungs are clear with normal rate and effort Heart is regular without murmur gallop or rub Abdomen soft nontender, flat Extremities are free of edema. Skin is free of rash or lesions. IVs and Medications Medications Reviewed: Medications were reviewed in detail Lab and Diagnostics Result Diagram: 03/20/17 0538 03/21/17 0530 X-Rays, CTs and MRIs . X-RAY CHEST ONE VIEW, PORTABLE IMPRESSION: Diffuse bilateral patchy air space opacities suspicious for pneumonia. Dictated by: Delon Pelayo [facility] Interpreted: Jose Enrique York MD on 02/17/2017 X-RAY CHEST ONE VIEW, PORTABLE IMPRESSION: 1. Right internal jugular central venous catheter is in expected position. No pneumothorax. 2. Bilateral septic emboli as before. Dictated by: Lance Dan M.D. on 02/17/2017 CT CHEST, ABDOMEN AND PELVIS WITHOUT CONTRAST IMPRESSION: 1. Multiple bilateral cavitary lesions in the lungs consistent with recurrent septic emboli. The differential for these imaging findings includes inflammatory processes as well as metastatic disease but these are less likely given patient's prior history of septic emboli. 2. Slight asymmetric appearance of the right kidney with minimal perinephric stranding. However, evaluation for pyelonephritis is limited in the absence of intravenous contrast. Recommend correlation clinically. There is no hydronephrosis. 3. Mildly prominent bladder wall thickness likely due to incomplete distention. Recommend correlation with urinalysis. Dictated by: Sulaiman Haines M.D. on 02/17/2017 CT BRAIN WITHOUT CONTRAST IMPRESSION: 1. No acute intracranial abnormality. Dictated by: Sulaiman Haines M.D. on 02/17/2017 Cardiac Echo Impressions Echocardiogram Report Interpretation Summary Sinus tachycardia. Normal LV size and wall thickness. There is normal LV wall motion and systolic function. EF is 55-60%. There is severe RV dilation with normal wall motion. There is severe RA dilation. There is a 2.5x0.9 cm vegetation on the downstream side of the tricuspid valve leaflet. There is moderate tricuspid regurgittation. There is normal valve structure and function otherwise. Estimated PASP is 42 mm Hg assuming RA pressure of 3 mm Hg. Compared to prior study 08/04/2016 sinus tachycardia is new. RV dilation is new. Vegetation on the tricuspid valve is old. Tricuspid regurgitation is old Assessment & Plan 26 y/o female w/ a hx of tricuspid MSSA endocarditis, ongoing IVDA (meth and heroin), septic PE, pneumonia, presenting to the ED c/o dyspnea. #. Acute MSSA endocarditis; present on admission; ongoing and improving. -Sepsis and shock both resolved -White count normal, procal trending down -Daptomycin was discontinued 02/28/17 -Continue nafcillin through April [address] Lee -Patient will remain here in the hospital until completion due to high risk of relapse unless she is accepted at [facility] -Concerned about persistent fever; repeat Chest CT non contrast shows either lymphadenopathy versus possible neoplastic disease 03/02/17, culture this seems to be resolving 03/09/17 -Discontinued azithromycin 500 mg daily and linezolid 600 mg twice a day for possible pneumonia patient seems to be improving no longer has coarse breath sounds or wheezes/Rales/rhonchi (last dose 03/08/2017) -Continue DuoNeb's when necessary -Culture central line tip (03/10/17) -May be able to go T [facility] with swing bed on March 25 to complete course of antibiotics Continue Nafcillin. No other changes. Her last date is April 04. #. Severe acute kidney injury. Present on admission. Resolved - Likely secondary to sepsis and hypotension and staphyloccocal glomerulonephritis. - C3/C4 decrease indicating likely infectious glomerulonephritis - Creatinine initially greater than 8; still trending down currently 1.04 - Nephrology consulted Dr. Patle (signed off with the patient on 02/29/2016) - Avoid nephrotoxic agents. This remained stable. No labs in about 4 days. #. Opioid dependence, poa, chronic. Stable. -The patient is tearful and frustrated that she is not receiving higher doses of opioid analgesics. Patient is demonstrating opioid seeking behaviors. She does not have an outpatient prescription for opioid analgesics. She is receiving oxycodone 5 mg every 4 hours when necessary. Nurses have observed the patient to pocket her oxycodone and administer them IV to herself. She was counseled regarding unacceptability this behavior. - Patient was counseled that increasing her opioid dependence with inpatient opioid medications, especially parenteral, of adverse long-term consequences for her health. - Current pain complaints consist of a chronic musculoskeletal complaints for which opioids are not indicated, and sepsis related rigors and musculoskeletal complaints which may be managed with antipyretics and nonsteroidal analgesics. - She should not receive additional opioids - Ativan 1 mg every 4 hours and will start decreasing Roxicodone - Patient remains on gabapentin 600 mg twice a day; home doses 3 times a day Possible clean and sober house after discharge. No other changes. Acute blood loss anemia; present on admission; active and improving. -Patient's hemoglobin this morning was 5.9 due to her disconnecting her central line to go the bathroom, with significant blood loss back through the line (02/26) -2 units PRBCs ordered stat and given on 02/27/17 -Patient's H&H is currently fluctuating between the low 8's-9's, transfuse if the patient drops below 8 -This remained stable. Last labs in about 4 days. One more CBC in the next several days. Acute sepsis with septic shock. Present on admission; resolved - Pt presented with temp 37.9, HR 145, BP 86/52, WBC 15.4 with left shift, lactic of 2.6. MSSA endocarditis with secondary bacteremia with persistently positive blood cultures at 5 days; CT positive for mycotic pulmonary embolism. Bcx negative since 02/21. Procal is down trending - Off norepinephrine for the time being; maintain mean arterial pressure of 65 mmHg - Discontinue daptomycin - Continue nafcillin through April 04 - Continue to follow blood cultures and CBC - Central line is now removed, midline catheter in place which was leaking was adjusted, now functioning well. -She remains stable. Persistent Diarrhea; present on admission; resolved 03/09/17 -Patient continues to have diarrhea which was present when she initially presented and then decrease with loperamide -Could be a sign of opiate withdrawal although she has been on Roxicodone -Continue Lomotil prn -Continue Florastor twice a day -Previous C. difficile was negative; repeat C. 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 Present on admission. Ongoing and improving. - CT chest showed septic pulmonary emboli bilaterally - Echocardiogram demonstrates a tricuspid vegetation, moderate tricuspid regurg , right sided heart failure - Dr. Patel and Dr. Riddle indicate that the patient is not a candidate is not a candidate at the moment and will require 6 weeks of antibiotics in 6 months off heroin -Patient's attempted injection of Roxicodone into her central line that raises the question whether she will meet surgical criteria for valve replacement. -Continue Eliquis for anticoagulation Left shoulder pain, acute on chronic. Present on admission. Resolving - Pt has history of septic joint of the left sternoclavicular joint; has been seen by orthopedics during the stay - Aspirate cell count, Gram stain, culture ordered 02/22/17 - Physical therapy to work with shoulder, continue Right ventricular heart failure with anasarca; present on admission; resolving -Severe right ventricular dilation and tricuspid regurg, with pulmonary hypertension likely secondary to pulmonary embolisms -Cardiology was consulted no longer following at this time continue to treat with antibiotics History of seizure disorder. POA and stable. -Patient states she is not on Lamictal at home -Titrating down Lamictal discontinue Lamictal 03/09/17 -Continuing topiramate, at 100 mg twice a day Hypokalemia, not present on admission. Stable -Continue potassium 20 mEq twice a day oral -Continue monitor Septic Encephalopathy; not present on admission; resolved. Patient had hallucinations, got out of bed and stooled on the floor. Likely related to either sepsis or combination of medications including morphine, Vistaril, and Ativan. - Stopped Vistaril except at bedtime, stop morphine, decrease Ativan - Resolved with reduction in pain medication - Currently on Seroquel which she apparently takes at home as well per her report Severe thrombocytopenia, acute. Present on admission. Resolved - Platelets reached as low as 31, due to sepsis - Platelets currently with in normal range Anion gap metabolic acidosis and lactic acidosis, acute. Present on admission, resolved. Secondary to lactic acidosis and PRISCILA. Gap 24. pH 7.26, pCO2 32.6, pO2 110, bicarb 14.2. - Resolved Hypovolemic Hyponatremia, acute. Present on admission. Resolved - Resolved History of IV drug abuse. POA and Active with heroin during the week prior to arrival. - Hepatitis C negative - HIV negative History of tobacco dependence. By mouth and active - Nicotine patch ordered Disposition: Antibiotics to continue through April 04. Patient will remain in-house or transfer to [facility] pending social work. GI Prophylaxis: H2 susan VTE Prophylaxis: Other (Pt has thrombocytopenia - no DVT prophylaxis for now.) VTE Mechanical Devices: Venous Foot Pump Resuscitation Status: CPR: Attempt Resuscitation Mitul Barrera MD Mar 24, 2017 13:36
--- NOTE | 2017-03-24 14:21 | NUR ---
Mid line Patient has midline in place for IV antibiotics. Midline has been positional per report. Dressing was saturated upon assessment after 1200 dose of IV antibiotics and IV therapy was called to assess and change dressing. Addendum: 03/24/17 at 1703 by [facility] RN Midline would leak significantly upon flushing with NS. IV therapy replaced pressure dressing and Midline continued to slightly leak.
--- NOTE | 2017-03-24 17:26 | PROG NOTE ---
[address] [address] PROGRESS NOTE PATIENT: RAJANI ALSTON : 1990 MR#: [id number] ADMIT: 02/17/2017 JOB ID: [id number] DATE: 03/24/2017 INFECTIOUS DISEASE FOLLOWUP NOTE: REASON FOR FOLLOWUP: Tricuspid valve endocarditis due to MSSA in an IV drug user. INTERVAL HISTORY: The patient continues to do fairly well. She is still having some problems with some leaking around her IV site but otherwise nothing to report. She has no fevers, no chills. No new headache. No chest pain. No nausea, vomiting, or diarrhea. PHYSICAL EXAMINATION: Reveals an afebrile comfortable young woman. Temp 36.8, pulse 96, respiratory rate 16, blood pressure 102/71. She is saturating well on room air and does not appear in any distress. Oral cavity negative. Lungs clear. Cardiac tones without murmur. Abdomen benign. No skin rash. LABORATORY: Most recent labs: 11,000 white count and that is several days old now. Creatinine 0.98 on March 21. No new cultures to report. Our last blood cultures were negative. 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 She is doing well and about to finish five weeks of her planned six weeks of therapy without overt toxicity. RECOMMENDATIONS: 1. Will continue with the nafcillin through the morning of April 04, at which time her PICC line could be pulled and she can be discharged. 2. I would continue with about twice weekly lab studies. 3. I will see the patient again on March 29, unless there are problems, in which case I can be called at any time about this patient by telephone. Thank you very much.
[2017-03-24 19:44] VITALS: BP 116/77; PULSE 84; RESP 18; O2SAT 96
[2017-03-25] MEDS: Nafcillin Inj 2,000 MG in Dextrose 5% Minibag Plus 100 ML IV SCH ×4 (00:20→08:00)
[2017-03-25 04:26] VITALS: BP 100/61; PULSE 89; RESP 16; O2SAT 98
--- NOTE | 2017-03-25 07:10 | NUR ---
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 Above meds given per pt insists, pt fallen asleep most of night, did not requests additional pain med, appears tolerate fine, alert and oriented, no VOCATIONAL HORTICULTURE INSTRUCTOR or respiratory depression noted while closely monitoring.
--- NOTE | 2017-03-25 07:49 | PCM.PNMED ---
Subjective Date of Service Mar 25, 2017 Subjective Patient seen and examined. Sitting up in bed, eating breakfast. No complaints Exam Vital Signs Vital Sign - Last Date Time Temp Pulse Resp B/P Pulse Ox O2 Delivery O2 Flow Rate FiO2 03/25/17 04:26 36.9 89 16 100/61 98 Room Air Intake and Output 03/24/17 03/24/17 03/25/17 Cumulative From/Thru 15:00 23:00 07:00 02/16/17 23:36 - 03/25/17 06:18 Intake Total 1455 ml 753 ml 250556 ml Output Total 00379 ml Balance 1455 ml 753 ml 32775 ml Intake Oral 640 ml 400 ml 28277 ml IV Total 815 ml 353 ml 01867 ml Tube Feeding 400 ml Platelets 490 ml Tube Irrigant 30 ml Output Urine Total 63281 ml Stool Total 1525 ml Urine/Stool Mix 6450 ml # Voids 3 2 101 # Bowel Movements 1 34 Exam Constitutional: Young female in no acute distress Head: Normocephalic atraumatic Chest: Clear to auscultation Cor: Regular rate and rhythm S1-S2 Abdomen: Soft nontender bowel sounds present Extremities: No pedal edema Neuro: Alert and oriented 3, motor strength is intact bilaterally Lab and Diagnostics Result Diagram: 03/20/17 0538 03/21/17 0530 X-Rays, CTs and MRIs . X-RAY CHEST ONE VIEW, PORTABLE IMPRESSION: Diffuse bilateral patchy air space opacities suspicious for pneumonia. Dictated by: Delon Pelayo RRMaryjane Interpreted: Jose Enrique York MD on 02/17/2017 X-RAY CHEST ONE VIEW, PORTABLE IMPRESSION: 1. Right internal jugular central venous catheter is in expected position. No pneumothorax. 2. Bilateral septic emboli as before. Dictated by: Lance Dan M.D. on 02/17/2017 CT CHEST, ABDOMEN AND PELVIS WITHOUT CONTRAST IMPRESSION: 1. Multiple bilateral cavitary lesions in the lungs consistent with recurrent septic emboli. The differential for these imaging findings includes inflammatory processes as well as metastatic disease but these are less likely given patient's prior history of septic emboli. 2. Slight asymmetric appearance of the right kidney with minimal perinephric stranding. However, evaluation for pyelonephritis is limited in the absence of intravenous contrast. Recommend correlation clinically. There is no hydronephrosis. 3. Mildly prominent bladder wall thickness likely due to incomplete distention. Recommend correlation with urinalysis. Dictated by: Sulaiman Haines M.D. on 02/17/2017 CT BRAIN WITHOUT CONTRAST IMPRESSION: 1. No acute intracranial abnormality. Dictated by: Sulaiman Haines M.D. on 02/17/2017 Cardiac Echo Impressions Echocardiogram Report Interpretation Summary Sinus tachycardia. Normal LV size and wall thickness. There is normal LV wall motion and systolic function. EF is 55-60%. There is severe RV dilation with normal wall motion. There is severe RA dilation. There is a 2.5x0.9 cm vegetation on the downstream side of the tricuspid valve leaflet. There is moderate tricuspid regurgittation. There is normal valve structure and function otherwise. Estimated PASP is 42 mm Hg assuming RA pressure of 3 mm Hg. Compared to prior study 08/04/2016 sinus tachycardia is new. RV dilation is new. Vegetation on the tricuspid valve is old. Tricuspid regurgitation is old Assessment & Plan 26 y/o female w/ a hx of tricuspid MSSA endocarditis, ongoing IVDA (meth and heroin), septic PE, pneumonia, presenting to the ED c/o dyspnea. #. Acute MSSA endocarditis; present on admission; ongoing and improving. -Sepsis and shock both resolved -White count normal, procal trending down -Daptomycin was discontinued 02/28/17 -Continue nafcillin through April [address] Lee -Patient will remain here in the hospital until completion due to high risk of relapse unless she is accepted at [facility] -Concerned about persistent fever; repeat Chest CT non contrast shows either lymphadenopathy versus possible neoplastic disease 03/02/17, culture this seems to be resolving 03/09/17 -Discontinued azithromycin 500 mg daily and linezolid 600 mg twice a day for possible pneumonia patient seems to be improving no longer has coarse breath sounds or wheezes/Rales/rhonchi (last dose 03/08/2017) -Continue DuoNeb's when necessary -Culture central line tip (03/10/17) -May be able to go [facility] with swing bed on March 25 to complete course of antibiotics Continue Nafcillin. No other changes. Her last date is April 04. #. Severe acute kidney injury. Present on admission. Resolved - Likely secondary to sepsis and hypotension and staphyloccocal glomerulonephritis. - C3/C4 decrease indicating likely infectious glomerulonephritis - Creatinine initially greater than 8; still trending down currently 1.04 - Nephrology consulted Dr. Patel (signed off with the patient on 02/29/2016) - Avoid nephrotoxic agents. This remained stable. No labs in about 4 days. #. Opioid dependence, poa, chronic. Stable. -The patient is tearful and frustrated that she is not receiving higher doses of opioid analgesics. Patient is demonstrating opioid seeking behaviors. She does not have an outpatient prescription for opioid analgesics. She is receiving oxycodone 5 mg every 4 hours when necessary. Nurses have observed the patient to pocket her oxycodone and administer them IV to herself. She was counseled regarding unacceptability this behavior. - Patient was counseled that increasing her opioid dependence with inpatient opioid medications, especially parenteral, of adverse long-term consequences for her health. - Current pain complaints consist of a chronic musculoskeletal complaints for which opioids are not indicated, and sepsis related rigors and musculoskeletal complaints which may be managed with antipyretics and nonsteroidal analgesics. - She should not receive additional opioids - Ativan 1 mg every 4 hours and will start decreasing Roxicodone - Patient remains on gabapentin 600 mg twice a day; home doses 3 times a day Possible clean and sober house after discharge. No other changes. Acute blood loss anemia; present on admission; active and improving. -Patient's hemoglobin this morning was 5.9 due to her disconnecting her central line to go the bathroom, with significant blood loss back through the line (02/26) -2 units PRBCs ordered stat and given on 02/27/17 -Patient's H&H is currently fluctuating between the low 8's-9's, transfuse if the patient drops below 8 -This remained stable. Last labs in about 4 days. One more CBC in the next several days. Acute sepsis with septic shock. Present on admission; resolved - Pt presented with temp 37.9, HR 145, BP 86/52, WBC 15.4 with left shift, lactic of 2.6. MSSA endocarditis with secondary bacteremia with persistently positive blood cultures at 5 days; CT positive for mycotic pulmonary embolism. Bcx negative since 02/21. Procal is down trending - Off norepinephrine for the time being; maintain mean arterial pressure of 65 mmHg - Discontinue daptomycin - Continue nafcillin through April 04 - Continue to follow blood cultures and CBC - Central line is now removed, midline catheter in place which was leaking was adjusted, now functioning well. -She remains stable. Persistent Diarrhea; present on admission; resolved 03/09/17 -Patient continues to have diarrhea which was present when she initially presented and then decrease with loperamide -Could be a sign of opiate withdrawal although she has been on Roxicodone -Continue Lomotil prn -Continue Florastor twice a day -Previous C. difficile was negative; repeat C. 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 Present on admission. Ongoing and improving. - CT chest showed septic pulmonary emboli bilaterally - Echocardiogram demonstrates a tricuspid vegetation, moderate tricuspid regurg , right sided heart failure - Dr. Patel and Dr. Riddle indicate that the patient is not a candidate is not a candidate at the moment and will require 6 weeks of antibiotics in 6 months off heroin -Patient's attempted injection of Roxicodone into her central line that raises the question whether she will meet surgical criteria for valve replacement. -Continue Eliquis for anticoagulation Left shoulder pain, acute on chronic. Present on admission. Resolving - Pt has history of septic joint of the left sternoclavicular joint; has been seen by orthopedics during the stay - Aspirate cell count, Gram stain, culture ordered 02/22/17 - Physical therapy to work with shoulder, continue Right ventricular heart failure with anasarca; present on admission; resolving -Severe right ventricular dilation and tricuspid regurg, with pulmonary hypertension likely secondary to pulmonary embolisms -Cardiology was consulted no longer following at this time continue to treat with antibiotics History of seizure disorder. POA and stable. -Patient states she is not on Lamictal at home -Titrating down Lamictal discontinue Lamictal 03/09/17 -Continuing topiramate, at 100 mg twice a day Hypokalemia, not present on admission. Stable -Continue potassium 20 mEq twice a day oral -Continue monitor Septic Encephalopathy; not present on admission; resolved. Patient had hallucinations, got out of bed and stooled on the floor. Likely related to either sepsis or combination of medications including morphine, Vistaril, and Ativan. - Stopped Vistaril except at bedtime, stop morphine, decrease Ativan - Resolved with reduction in pain medication - Currently on Seroquel which she apparently takes at home as well per her report Severe thrombocytopenia, acute. Present on admission. Resolved - Platelets reached as low as 31, due to sepsis - Platelets currently with in normal range Anion gap metabolic acidosis and lactic acidosis, acute. Present on admission, resolved. Secondary to lactic acidosis and PRISCILA. Gap 24. pH 7.26, pCO2 32.6, pO2 110, bicarb 14.2. - Resolved Hypovolemic Hyponatremia, acute. Present on admission. Resolved - Resolved History of IV drug abuse. POA and Active with heroin during the week prior to arrival. - Hepatitis C negative - HIV negative History of tobacco dependence. By mouth and active - Nicotine patch ordered Disposition: Antibiotics to continue through April 04. Patient will remain in-house or transfer to [facility] pending social work. GI Prophylaxis: H2 susan VTE Prophylaxis: Other (Pt has thrombocytopenia - no DVT prophylaxis for now.) VTE Mechanical Devices: Intermittant Pneumatic CD, Venous Foot Pump Resuscitation Status: CPR: Attempt Resuscitation Time spent 35 mins Alex Luis MD Mar 25, 2017 07:49
[2017-03-25] MEDS: Potassium Chloride 20 mEq SR Tablet PO SCH ×2 (07:56→17:18)
[2017-03-25] MEDS: LORazepam 1 mg Tablet PO PRN ×2 (07:56→19:52)
[2017-03-25] MEDS: oxyCODONE 1 mg/mL 5 mL Liquid PO PRN ×2 (07:57→19:52)
--- NOTE | 2017-03-25 09:43 | NUR ---
Midline Removed Patient had a midline IV in place leaking. IV therapy was called and placed a peripheral IV. Nafcillin is the IV antibiotic that was being administered through midline and was not administered at 0800 due to not being able to be administered through peripheral IV. IV therapy notified to have medication changed.
[2017-03-25] MEDS ORDERED: CeFAZolin Inj 2 GM in Dextrose 5% 50 ML IV SCH (11:15)
[2017-03-25] MEDS: CeFAZolin 2 Gm/50 mL D5W IV Premix IV SCH ×2 (11:22→18:34)
[2017-03-25 11:30] VITALS: PULSE 96; RESP 18; O2SAT 96
[2017-03-25 14:11] VITALS: BP 114/76; PULSE 92; RESP 18; O2SAT 100
[2017-03-25 20:10] VITALS: PULSE 89; RESP 18; O2SAT 98
[2017-03-25 20:17] VITALS: BP 124/87; PULSE 100; RESP 18; O2SAT 100
[2017-03-26] MEDS: CeFAZolin 2 Gm/50 mL D5W IV Premix IV SCH ×3 (03:34→19:17)
[2017-03-26 05:10] VITALS: BP 104/67; PULSE 82; RESP 18; O2SAT 97
--- NOTE | 2017-03-26 07:14 | NUR ---
No issue overnight Pt c/o left shoulder pain 01/24, Oxycodone given at the beginning of the shift, Temazepam given for sleep, pt sleeping throughout the night, wake up rate pain 10 this morning,declines pain med when offered. Otherwise no issues, VSS,afebrile.
[2017-03-26 08:00] VITALS: PULSE 82; RESP 18; O2SAT 97
[2017-03-26] MEDS: Potassium Chloride 20 mEq SR Tablet PO SCH ×2 (08:00→13:32)
--- NOTE | 2017-03-26 08:02 | NUR ---
Social Work-continued d/c planning: Data: EMR Reviewed. Pt is on day 37 of hospitalization for Sepsis per H&P. Pt is medically stable, but needs to remain at [facility] for course of IV abx. Referral has been made to [facility] Swing Bed Unit, no bed at this point. Resources have been provided to pt for Methadone Clinic at [facility]. Alternative resources provided to pt for disability information. SW will continue to follow. 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 Plan: Pt has been accepted at [facility] Beds, no beds at this time. If no bed at [facility] pt will remain at [facility] for IV abx until 04/04. SW will continue to follow. BINA Sanchez
--- NOTE | 2017-03-26 08:25 | PCM.PNMED ---
Subjective Date of Service Mar 26, 2017 Subjective Patient seen and examined. No complaints. Vitals noted. Exam Vital Signs Vital Sign - Last Date Time Temp Pulse Resp B/P Pulse Ox O2 Delivery O2 Flow Rate FiO2 03/26/17 05:10 36.8 82 18 104/67 97 Room Air Intake and Output 03/25/17 03/25/17 03/26/17 Cumulative From/Thru 15:00 23:00 07:00 02/16/17 23:36 - 03/26/17 05:52 Intake Total 2068 ml 534 ml 970576 ml Output Total 90580 ml Balance 2068 ml 534 ml 12894 ml Intake Oral 2008 ml 473 ml 91887 ml IV Total 60 ml 61 ml 79526 ml Tube Feeding 400 ml Platelets 490 ml Tube Irrigant 30 ml Output Urine Total 30958 ml Stool Total 1525 ml Urine/Stool Mix 6450 ml # Voids 3 1 105 # Bowel Movements 34 Exam Constitutional: Young female in no acute distress Head: Normocephalic atraumatic Chest: Clear to auscultation Cor: Regular rate and rhythm S1-S2 Abdomen: Soft nontender bowel sounds present Extremities: No pedal edema Neuro: Alert and oriented 3, motor strength is intact bilaterally Lab and Diagnostics Result Diagram: 03/20/17 0538 03/21/17 0530 X-Rays, CTs and MRIs . X-RAY CHEST ONE VIEW, PORTABLE IMPRESSION: Diffuse bilateral patchy air space opacities suspicious for pneumonia. Dictated by: Delon Pelayo RR Interpreted: Jose Enrique York MD on 02/17/2017 X-RAY CHEST ONE VIEW, PORTABLE IMPRESSION: 1. Right internal jugular central venous catheter is in expected position. No pneumothorax. 2. Bilateral septic emboli as before. Dictated by: Lance Dan M.D. on 02/17/2017 CT CHEST, ABDOMEN AND PELVIS WITHOUT CONTRAST IMPRESSION: 1. Multiple bilateral cavitary lesions in the lungs consistent with recurrent septic emboli. The differential for these imaging findings includes inflammatory processes as well as metastatic disease but these are less likely given patient's prior history of septic emboli. 2. Slight asymmetric appearance of the right kidney with minimal perinephric stranding. However, evaluation for pyelonephritis is limited in the absence of intravenous contrast. Recommend correlation clinically. There is no hydronephrosis. 3. Mildly prominent bladder wall thickness likely due to incomplete distention. Recommend correlation with urinalysis. Dictated by: Sulaiman Haines M.D. on 02/17/2017 CT BRAIN WITHOUT CONTRAST IMPRESSION: 1. No acute intracranial abnormality. Dictated by: Sulaiman Haines M.D. on 02/17/2017 Cardiac Echo Impressions Echocardiogram Report Interpretation Summary Sinus tachycardia. Normal LV size and wall thickness. There is normal LV wall motion and systolic function. EF is 55-60%. There is severe RV dilation with normal wall motion. There is severe RA dilation. There is a 2.5x0.9 cm vegetation on the downstream side of the tricuspid valve leaflet. There is moderate tricuspid regurgittation. There is normal valve structure and function otherwise. Estimated PASP is 42 mm Hg assuming RA pressure of 3 mm Hg. Compared to prior study 08/04/2016 sinus tachycardia is new. RV dilation is new. Vegetation on the tricuspid valve is old. Tricuspid regurgitation is old Assessment & Plan 26 y/o female w/ a hx of tricuspid MSSA endocarditis, ongoing IVDA (meth and heroin), septic PE, pneumonia, presenting to the ED c/o dyspnea. #. Acute MSSA endocarditis; present on admission; ongoing and improving. -Sepsis and shock both resolved -White count normal, procal trending down -Daptomycin was discontinued 02/28/17 -Continue nafcillin through April [address] Lee -Patient will remain here in the hospital until completion due to high risk of relapse unless she is accepted at [facility] [place] -Concerned about persistent fever; repeat Chest CT non contrast shows either lymphadenopathy versus possible neoplastic disease 03/02/17, culture this seems to be resolving 03/09/17 -Discontinued azithromycin 500 mg daily and linezolid 600 mg twice a day for possible pneumonia patient seems to be improving no longer has coarse breath sounds or wheezes/Rales/rhonchi (last dose 03/08/2017) -Continue DuoNeb's when necessary -Culture central line tip (03/10/17) -May be able to go T [facility] with swing bed to complete course of antibiotics Continue Nafcillin. No other changes. Her last date is April 04. #. Severe acute kidney injury. Present on admission. Resolved - Likely secondary to sepsis and hypotension and staphyloccocal glomerulonephritis. - C3/C4 decrease indicating likely infectious glomerulonephritis - Creatinine initially greater than 8; still trending down currently 1.04 - Nephrology consulted Dr. Patel (signed off with the patient on 02/29/2016) - Avoid nephrotoxic agents. This remained stable. No labs in about 4 days. #. Opioid dependence, poa, chronic. Stable. -The patient is tearful and frustrated that she is not receiving higher doses of opioid analgesics. Patient is demonstrating opioid seeking behaviors. She does not have an outpatient prescription for opioid analgesics. She is receiving oxycodone 5 mg every 4 hours when necessary. Nurses have observed the patient to pocket her oxycodone and administer them IV to herself. She was counseled regarding unacceptability this behavior. - Patient was counseled that increasing her opioid dependence with inpatient opioid medications, especially parenteral, of adverse long-term consequences for her health. - Current pain complaints consist of a chronic musculoskeletal complaints for which opioids are not indicated, and sepsis related rigors and musculoskeletal complaints which may be managed with antipyretics and nonsteroidal analgesics. - She should not receive additional opioids - Ativan 1 mg every 4 hours and will start decreasing Roxicodone - Patient remains on gabapentin 600 mg twice a day; home doses 3 times a day Possible clean and sober house after discharge. No other changes. Acute blood loss anemia; present on admission; active and improving. -Patient's hemoglobin this morning was 5.9 due to her disconnecting her central line to go the bathroom, with significant blood loss back through the line (02/26) -2 units PRBCs ordered stat and given on 02/27/17 -Patient's H&H is currently fluctuating between the low 8's-9's, transfuse if the patient drops below 8 -This remained stable. Last labs in about 4 days. One more CBC in the next several days. Acute sepsis with septic shock. Present on admission; resolved - Pt presented with temp 37.9, HR 145, BP 86/52, WBC 15.4 with left shift, lactic of 2.6. MSSA endocarditis with secondary bacteremia with persistently positive blood cultures at 5 days; CT positive for mycotic pulmonary embolism. Bcx negative since 02/21. Procal is down trending - Off norepinephrine for the time being; maintain mean arterial pressure of 65 mmHg - Discontinue daptomycin - Continue nafcillin through April 04 - Continue to follow blood cultures and CBC - Central line is now removed, midline catheter in place which was leaking was adjusted, now functioning well. -She remains stable. Persistent Diarrhea; present on admission; resolved 03/09/17 -Patient continues to have diarrhea which was present when she initially presented and then decrease with loperamide -Could be a sign of opiate withdrawal although she has been on Roxicodone -Continue Lomotil prn -Continue Florastor twice a day -Previous C. difficile was negative; repeat C. 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 Present on admission. Ongoing and improving. - CT chest showed septic pulmonary emboli bilaterally - Echocardiogram demonstrates a tricuspid vegetation, moderate tricuspid regurg , right sided heart failure - Dr. Patel and Dr. Riddle indicate that the patient is not a candidate is not a candidate at the moment and will require 6 weeks of antibiotics in 6 months off heroin -Patient's attempted injection of Roxicodone into her central line that raises the question whether she will meet surgical criteria for valve replacement. -Continue Eliquis for anticoagulation Left shoulder pain, acute on chronic. Present on admission. Resolving - Pt has history of septic joint of the left sternoclavicular joint; has been seen by orthopedics during the stay - Aspirate cell count, Gram stain, culture ordered 02/22/17 - Physical therapy to work with shoulder, continue Right ventricular heart failure with anasarca; present on admission; resolving -Severe right ventricular dilation and tricuspid regurg, with pulmonary hypertension likely secondary to pulmonary embolisms -Cardiology was consulted no longer following at this time continue to treat with antibiotics History of seizure disorder. POA and stable. -Patient states she is not on Lamictal at home -Titrating down Lamictal discontinue Lamictal 03/09/17 -Continuing topiramate, at 100 mg twice a day Hypokalemia, not present on admission. Stable -Continue potassium 20 mEq twice a day oral -Continue monitor Septic Encephalopathy; not present on admission; resolved. Patient had hallucinations, got out of bed and stooled on the floor. Likely related to either sepsis or combination of medications including morphine, Vistaril, and Ativan. - Stopped Vistaril except at bedtime, stop morphine, decrease Ativan - Resolved with reduction in pain medication - Currently on Seroquel which she apparently takes at home as well per her report Severe thrombocytopenia, acute. Present on admission. Resolved - Platelets reached as low as 31, due to sepsis - Platelets currently with in normal range Anion gap metabolic acidosis and lactic acidosis, acute. Present on admission, resolved. Secondary to lactic acidosis and PRISCILA. Gap 24. pH 7.26, pCO2 32.6, pO2 110, bicarb 14.2. - Resolved Hypovolemic Hyponatremia, acute. Present on admission. Resolved - Resolved History of IV drug abuse. POA and Active with heroin during the week prior to arrival. - Hepatitis C negative - HIV negative History of tobacco dependence. By mouth and active - Nicotine patch ordered Disposition: Antibiotics to continue through April 04. Patient will remain in-house or transfer to [facility] [place] [facility] pending social work. GI Prophylaxis: H2 susan VTE Prophylaxis: Other (Pt has thrombocytopenia - no DVT prophylaxis for now.) VTE Mechanical Devices: Intermittant Pneumatic CD, Venous Foot Pump Resuscitation Status: CPR: Attempt Resuscitation Time spent 35 mins Alex Luis MD Mar 26, 2017 08:25
[2017-03-26] MEDS: oxyCODONE 1 mg/mL 5 mL Liquid PO PRN ×2 (08:40→20:23)
[2017-03-26 09:52] LABS: BASOPHILS % (AUTO) 0.4 % (0-3); EOSINOPHILS % (AUTO) 1.3 % (0-5); Mean Corpuscular Hemoglobin 31.5 pg (27.0-35.0); Mean Corpuscular Volume 94.7 fL (81-100); NEUTROPHILS % (AUTO) 55.2 % (40-74); Platelet Count 309 bil/L (150-400)
[2017-03-26 12:14] VITALS: BP 100/63; PULSE 86; RESP 19; O2SAT 95
--- NOTE | 2017-03-26 13:07 | NUR ---
Potassium Level: Patients potassium level is elevated . Her K+ level this morning was 4.4 . Per the hospitalist her K+ supplement was held today.
[2017-03-26 20:40] VITALS: BP 97/64; PULSE 86; RESP 16; O2SAT 98
[2017-03-26 22:29] VITALS: PULSE 86; RESP 18; O2SAT 98
[2017-03-27] MEDS: CeFAZolin 2 Gm/50 mL D5W IV Premix IV SCH ×3 (03:23→17:39)
[2017-03-27 04:50] VITALS: BP 102/71; PULSE 84; RESP 16; O2SAT 99
--- NOTE | 2017-03-27 08:00 | PCM.PNMED ---
Subjective Date of Service Mar 27, 2017 Subjective Patient seen and examined. No complaints . Vitals stable. Exam Vital Signs Vital Sign - Last Date Time Temp Pulse Resp B/P Pulse Ox O2 Delivery O2 Flow Rate FiO2 03/27/17 05:39 Supplement Oxygen 03/27/17 04:50 36.6 84 16 102/71 99 Intake and Output 03/26/17 03/26/17 03/27/17 Cumulative From/Thru 15:00 23:00 07:00 02/16/17 23:36 - 03/27/17 06:14 Intake Total 472 ml 473 ml 292741 ml Output Total 45614 ml Balance 472 ml 473 ml 32744 ml Intake Oral 472 ml 473 ml 52871 ml IV Total 72126 ml Tube Feeding 400 ml Platelets 490 ml Tube Irrigant 30 ml Output Urine Total 34324 ml Stool Total 1525 ml Urine/Stool Mix 6450 ml # Voids 3 1 109 # Bowel Movements 0 34 Exam Constitutional: Young female in no acute distress Head: Normocephalic atraumatic Chest: Clear to auscultation Cor: Regular rate and rhythm S1-S2 Abdomen: Soft nontender bowel sounds present Extremities: No pedal edema Lab and Diagnostics Result Diagram: 03/26/17 0941 03/26/17 0941 X-Rays, CTs and MRIs . X-RAY CHEST ONE VIEW, PORTABLE IMPRESSION: Diffuse bilateral patchy air space opacities suspicious for pneumonia. Dictated by: Delon Pelayo [facility] Interpreted: Jose Enrique York MD on 02/17/2017 X-RAY CHEST ONE VIEW, PORTABLE IMPRESSION: 1. Right internal jugular central venous catheter is in expected position. No pneumothorax. 2. Bilateral septic emboli as before. Dictated by: Lance Dan M.D. on 02/17/2017 CT CHEST, ABDOMEN AND PELVIS WITHOUT CONTRAST IMPRESSION: 1. Multiple bilateral cavitary lesions in the lungs consistent with recurrent septic emboli. The differential for these imaging findings includes inflammatory processes as well as metastatic disease but these are less likely given patient's prior history of septic emboli. 2. Slight asymmetric appearance of the right kidney with minimal perinephric stranding. However, evaluation for pyelonephritis is limited in the absence of intravenous contrast. Recommend correlation clinically. There is no hydronephrosis. 3. Mildly prominent bladder wall thickness likely due to incomplete distention. Recommend correlation with urinalysis. Dictated by: Sulaiman Haines M.D. on 02/17/2017 CT BRAIN WITHOUT CONTRAST IMPRESSION: 1. No acute intracranial abnormality. Dictated by: Sulaiman Haines M.D. on 02/17/2017 Cardiac Echo Impressions Echocardiogram Report Interpretation Summary Sinus tachycardia. Normal LV size and wall thickness. There is normal LV wall motion and systolic function. EF is 55-60%. There is severe RV dilation with normal wall motion. There is severe RA dilation. There is a 2.5x0.9 cm vegetation on the downstream side of the tricuspid valve leaflet. There is moderate tricuspid regurgittation. There is normal valve structure and function otherwise. Estimated PASP is 42 mm Hg assuming RA pressure of 3 mm Hg. Compared to prior study 08/04/2016 sinus tachycardia is new. RV dilation is new. Vegetation on the tricuspid valve is old. Tricuspid regurgitation is old Assessment & Plan 26 y/o female w/ a hx of tricuspid MSSA endocarditis, ongoing IVDA (meth and heroin), septic PE, pneumonia, presenting to the ED c/o dyspnea. #. Acute MSSA endocarditis; present on admission; ongoing and improving. -Sepsis and shock both resolved -White count normal, procal trending down -Daptomycin was discontinued 02/28/17 -Continue nafcillin through April [address] Lee -Patient will remain here in the hospital until completion due to high risk of relapse unless she is accepted at [facility] -Concerned about persistent fever; repeat Chest CT non contrast shows either lymphadenopathy versus possible neoplastic disease 03/02/17, culture this seems to be resolving 03/09/17 -Discontinued azithromycin 500 mg daily and linezolid 600 mg twice a day for possible pneumonia patient seems to be improving no longer has coarse breath sounds or wheezes/Rales/rhonchi (last dose 03/08/2017) -Continue DuoNeb's when necessary -Culture central line tip (03/10/17) -May be able to go T [facility] with swing bed to complete course of antibiotics Continue Nafcillin. No other changes. Her last date is April 04. #. Severe acute kidney injury. Present on admission. Resolved - Likely secondary to sepsis and hypotension and staphyloccocal glomerulonephritis. - C3/C4 decrease indicating likely infectious glomerulonephritis - Creatinine initially greater than 8; still trending down currently 1.04 - Nephrology consulted Dr. Patel (signed off with the patient on 02/29/2016) - Avoid nephrotoxic agents. This remained stable. No labs in about 4 days. #. Opioid dependence, poa, chronic. Stable. -The patient is tearful and frustrated that she is not receiving higher doses of opioid analgesics. Patient is demonstrating opioid seeking behaviors. She does not have an outpatient prescription for opioid analgesics. She is receiving oxycodone 5 mg every 4 hours when necessary. Nurses have observed the patient to pocket her oxycodone and administer them IV to herself. She was counseled regarding unacceptability this behavior. - Patient was counseled that increasing her opioid dependence with inpatient opioid medications, especially parenteral, of adverse long-term consequences for her health. - Current pain complaints consist of a chronic musculoskeletal complaints for which opioids are not indicated, and sepsis related rigors and musculoskeletal complaints which may be managed with antipyretics and nonsteroidal analgesics. - She should not receive additional opioids - Ativan 1 mg every 4 hours and will start decreasing Roxicodone - Patient remains on gabapentin 600 mg twice a day; home doses 3 times a day Possible clean and sober house after discharge. No other changes. Acute blood loss anemia; present on admission; active and improving. -Patient's hemoglobin this morning was 5.9 due to her disconnecting her central line to go the bathroom, with significant blood loss back through the line (02/26) -2 units PRBCs ordered stat and given on 02/27/17 -Patient's H&H is currently fluctuating between the low 8's-9's, transfuse if the patient drops below 8 -This remained stable. Last labs in about 4 days. One more CBC in the next several days. Acute sepsis with septic shock. Present on admission; resolved - Pt presented with temp 37.9, HR 145, BP 86/52, WBC 15.4 with left shift, lactic of 2.6. MSSA endocarditis with secondary bacteremia with persistently positive blood cultures at 5 days; CT positive for mycotic pulmonary embolism. Bcx negative since 02/21. Procal is down trending - Off norepinephrine for the time being; maintain mean arterial pressure of 65 mmHg - Discontinue daptomycin - Continue nafcillin through April 04 - Continue to follow blood cultures and CBC - Central line is now removed, midline catheter in place which was leaking was adjusted, now functioning well. -She remains stable. Persistent Diarrhea; present on admission; resolved 03/09/17 -Patient continues to have diarrhea which was present when she initially presented and then decrease with loperamide -Could be a sign of opiate withdrawal although she has been on Roxicodone -Continue Lomotil prn -Continue Florastor twice a day -Previous C. difficile was negative; repeat C. 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 Present on admission. Ongoing and improving. - CT chest showed septic pulmonary emboli bilaterally - Echocardiogram demonstrates a tricuspid vegetation, moderate tricuspid regurg , right sided heart failure - Dr. Patel and Dr. Riddle indicate that the patient is not a candidate is not a candidate at the moment and will require 6 weeks of antibiotics in 6 months off heroin -Patient's attempted injection of Roxicodone into her central line that raises the question whether she will meet surgical criteria for valve replacement. -Continue Eliquis for anticoagulation Left shoulder pain, acute on chronic. Present on admission. Resolving - Pt has history of septic joint of the left sternoclavicular joint; has been seen by orthopedics during the stay - Aspirate cell count, Gram stain, culture ordered 02/22/17 - Physical therapy to work with shoulder, continue Right ventricular heart failure with anasarca; present on admission; resolving -Severe right ventricular dilation and tricuspid regurg, with pulmonary hypertension likely secondary to pulmonary embolisms -Cardiology was consulted no longer following at this time continue to treat with antibiotics History of seizure disorder. POA and stable. -Patient states she is not on Lamictal at home -Titrating down Lamictal discontinue Lamictal 03/09/17 -Continuing topiramate, at 100 mg twice a day Hypokalemia, not present on admission. Stable -Continue potassium 20 mEq twice a day oral -Continue monitor Septic Encephalopathy; not present on admission; resolved. Patient had hallucinations, got out of bed and stooled on the floor. Likely related to either sepsis or combination of medications including morphine, Vistaril, and Ativan. - Stopped Vistaril except at bedtime, stop morphine, decrease Ativan - Resolved with reduction in pain medication - Currently on Seroquel which she apparently takes at home as well per her report Severe thrombocytopenia, acute. Present on admission. Resolved - Platelets reached as low as 31, due to sepsis - Platelets currently with in normal range Anion gap metabolic acidosis and lactic acidosis, acute. Present on admission, resolved. Secondary to lactic acidosis and PRISCILA. Gap 24. pH 7.26, pCO2 32.6, pO2 110, bicarb 14.2. - Resolved Hypovolemic Hyponatremia, acute. Present on admission. Resolved - Resolved History of IV drug abuse. POA and Active with heroin during the week prior to arrival. - Hepatitis C negative - HIV negative History of tobacco dependence. By mouth and active - Nicotine patch ordered Disposition: Antibiotics to continue through April 04. Patient will remain in-house or transfer to [facility] pending social work. GI Prophylaxis: H2 susan VTE Prophylaxis: Other (Pt has thrombocytopenia - no DVT prophylaxis for now.) VTE Mechanical Devices: Intermittant Pneumatic CD, Venous Foot Pump Resuscitation Status: CPR: Attempt Resuscitation Time spent 35 mins Alex Luis MD Mar 27, 2017 08:00
[2017-03-27 08:30] VITALS: PULSE 86; RESP 18; O2SAT 99
[2017-03-27] MEDS: oxyCODONE 1 mg/mL 5 mL Liquid PO PRN ×2 (09:35→20:26)
[2017-03-27] MEDS: Potassium Chloride 20 mEq SR Tablet PO SCH ×2 (09:35→17:38)
[2017-03-27] MEDS: LORazepam 1 mg Tablet PO PRN ×2 (09:39→20:31)
[2017-03-27 13:00] VITALS: BP 102/70; PULSE 99; RESP 18; O2SAT 99
--- NOTE | 2017-03-27 17:03 | NUR ---
Activity: Patient has had an uneventful day. She has been calm and cooperative with care. Hourly rounding to meet patients needs. patient continues to be on her IV ABT
[2017-03-27 20:15] VITALS: BP 109/76; PULSE 107; RESP 18; O2SAT 99
[2017-03-28] MEDS: CeFAZolin 2 Gm/50 mL D5W IV Premix IV SCH ×3 (03:11→18:00)
[2017-03-28 05:05] VITALS: BP 112/72; PULSE 82; RESP 16; O2SAT 99
[2017-03-28] MEDS: oxyCODONE 1 mg/mL 5 mL Liquid PO PRN ×2 (08:05→17:28)
[2017-03-28] MEDS: LORazepam 1 mg Tablet PO PRN ×3 (08:06→20:49)
[2017-03-28] MEDS: Potassium Chloride 20 mEq SR Tablet PO SCH (08:07)
--- NOTE | 2017-03-28 10:40 | PCM.PNMED ---
Subjective Date of Service Mar 28, 2017 Subjective Patient seen and examined. No complaints. Vitals noted. Exam Vital Signs Vital Sign - Last Date Time Temp Pulse Resp B/P Pulse Ox O2 Delivery O2 Flow Rate FiO2 03/28/17 05:05 36.3 82 16 112/72 99 Room Air Intake and Output 03/27/17 03/27/17 03/28/17 Cumulative From/Thru 15:00 23:00 07:00 02/16/17 23:36 - 03/28/17 06:34 Intake Total 1440 ml 573 ml 656401 ml Output Total 99269 ml Balance 1440 ml 573 ml 43748 ml Intake Oral 1440 ml 473 ml 80972 ml IV Total 100 ml 29611 ml Tube Feeding 400 ml Platelets 490 ml Tube Irrigant 30 ml Output Urine Total 53322 ml Stool Total 1525 ml Urine/Stool Mix 6450 ml # Voids 3 1 113 # Bowel Movements 34 Exam Constitutional: Young female in no acute distress Head: Normocephalic atraumatic Chest: Clear to auscultation Cor: Regular rate and rhythm S1-S2 Abdomen: Soft nontender bowel sounds present Extremities: No pedal edema Lab and Diagnostics Result Diagram: 03/26/17 0941 03/26/17 0941 X-Rays, CTs and MRIs . X-RAY CHEST ONE VIEW, PORTABLE IMPRESSION: Diffuse bilateral patchy air space opacities suspicious for pneumonia. Dictated by: Delon Pelayo [facility] Interpreted: Jose Enrique York MD on 02/17/2017 X-RAY CHEST ONE VIEW, PORTABLE IMPRESSION: 1. Right internal jugular central venous catheter is in expected position. No pneumothorax. 2. Bilateral septic emboli as before. Dictated by: Lance Dan M.D. on 02/17/2017 CT CHEST, ABDOMEN AND PELVIS WITHOUT CONTRAST IMPRESSION: 1. Multiple bilateral cavitary lesions in the lungs consistent with recurrent septic emboli. The differential for these imaging findings includes inflammatory processes as well as metastatic disease but these are less likely given patient's prior history of septic emboli. 2. Slight asymmetric appearance of the right kidney with minimal perinephric stranding. However, evaluation for pyelonephritis is limited in the absence of intravenous contrast. Recommend correlation clinically. There is no hydronephrosis. 3. Mildly prominent bladder wall thickness likely due to incomplete distention. Recommend correlation with urinalysis. Dictated by: Sulaiman Haines M.D. on 02/17/2017 CT BRAIN WITHOUT CONTRAST IMPRESSION: 1. No acute intracranial abnormality. Dictated by: Sulaiman Haines M.D. on 02/17/2017 Cardiac Echo Impressions Echocardiogram Report Interpretation Summary Sinus tachycardia. Normal LV size and wall thickness. There is normal LV wall motion and systolic function. EF is 55-60%. There is severe RV dilation with normal wall motion. There is severe RA dilation. There is a 2.5x0.9 cm vegetation on the downstream side of the tricuspid valve leaflet. There is moderate tricuspid regurgittation. There is normal valve structure and function otherwise. Estimated PASP is 42 mm Hg assuming RA pressure of 3 mm Hg. Compared to prior study 08/04/2016 sinus tachycardia is new. RV dilation is new. Vegetation on the tricuspid valve is old. Tricuspid regurgitation is old Assessment & Plan 26 y/o female w/ a hx of tricuspid MSSA endocarditis, ongoing IVDA (meth and heroin), septic PE, pneumonia, presenting to the ED c/o dyspnea. #. Acute MSSA endocarditis; present on admission; ongoing and improving. -Sepsis and shock both resolved -White count normal, procal trending down -Daptomycin was discontinued 02/28/17 -Continue cefazolin (switched from naficillin by Dr. Lee) through April [address] Lee -Patient will remain here in the hospital until completion due to high risk of relapse unless she is accepted at [facility] -Concerned about persistent fever; repeat Chest CT non contrast shows either lymphadenopathy versus possible neoplastic disease 03/02/17, culture this seems to be resolving 03/09/17 -Discontinued azithromycin 500 mg daily and linezolid 600 mg twice a day for possible pneumonia patient seems to be improving no longer has coarse breath sounds or wheezes/Rales/rhonchi (last dose 03/08/2017) -Continue DuoNeb's when necessary -Culture central line tip (03/10/17) -May be able to go T [facility] with swing bed to complete course of antibiotics #. Severe acute kidney injury. Present on admission. Resolved - Likely secondary to sepsis and hypotension and staphyloccocal glomerulonephritis. - C3/C4 decrease indicating likely infectious glomerulonephritis - Creatinine initially greater than 8; still trending down currently 1.04 - Nephrology consulted Dr. Patel (signed off with the patient on 02/29/2016) - Avoid nephrotoxic agents. This remained stable. No labs in about 4 days. #. Opioid dependence, poa, chronic. Stable. -The patient is tearful and frustrated that she is not receiving higher doses of opioid analgesics. Patient is demonstrating opioid seeking behaviors. She does not have an outpatient prescription for opioid analgesics. She is receiving oxycodone 5 mg every 4 hours when necessary. Nurses have observed the patient to pocket her oxycodone and administer them IV to herself. She was counseled regarding unacceptability this behavior. - Patient was counseled that increasing her opioid dependence with inpatient opioid medications, especially parenteral, of adverse long-term consequences for her health. - Current pain complaints consist of a chronic musculoskeletal complaints for which opioids are not indicated, and sepsis related rigors and musculoskeletal complaints which may be managed with antipyretics and nonsteroidal analgesics. - She should not receive additional opioids - Ativan 1 mg every 4 hours and will start decreasing Roxicodone - Patient remains on gabapentin 600 mg twice a day; home doses 3 times a day Possible clean and sober house after discharge. No other changes. Acute blood loss anemia; present on admission; active and improving. -Patient's hemoglobin this morning was 5.9 due to her disconnecting her central line to go the bathroom, with significant blood loss back through the line (02/26) -2 units PRBCs ordered stat and given on 02/27/17 -Patient's H&H is currently fluctuating between the low 8's-9's, transfuse if the patient drops below 8 -This remained stable. Last labs in about 4 days. One more CBC in the next several days. Acute sepsis with septic shock. Present on admission; resolved - Pt presented with temp 37.9, HR 145, BP 86/52, WBC 15.4 with left shift, lactic of 2.6. MSSA endocarditis with secondary bacteremia with persistently positive blood cultures at 5 days; CT positive for mycotic pulmonary embolism. Bcx negative since 02/21. Procal is down trending - Off norepinephrine for the time being; maintain mean arterial pressure of 65 mmHg - Discontinue daptomycin - Continue nafcillin through April 04 - Continue to follow blood cultures and CBC - Central line is now removed, midline catheter in place which was leaking was adjusted, now functioning well. -She remains stable. Persistent Diarrhea; present on admission; resolved 03/09/17 -Patient continues to have diarrhea which was present when she initially presented and then decrease with loperamide -Could be a sign of opiate withdrawal although she has been on Roxicodone -Continue Lomotil prn -Continue Florastor twice a day -Previous C. difficile was negative; repeat C. 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 Present on admission. Ongoing and improving. - CT chest showed septic pulmonary emboli bilaterally - Echocardiogram demonstrates a tricuspid vegetation, moderate tricuspid regurg , right sided heart failure - Dr. Patel and Dr. Riddle indicate that the patient is not a candidate is not a candidate at the moment and will require 6 weeks of antibiotics in 6 months off heroin -Patient's attempted injection of Roxicodone into her central line that raises the question whether she will meet surgical criteria for valve replacement. -Continue Eliquis for anticoagulation Left shoulder pain, acute on chronic. Present on admission. Resolving - Pt has history of septic joint of the left sternoclavicular joint; has been seen by orthopedics during the stay - Aspirate cell count, Gram stain, culture ordered 02/22/17 - Physical therapy to work with shoulder, continue Right ventricular heart failure with anasarca; present on admission; resolving -Severe right ventricular dilation and tricuspid regurg, with pulmonary hypertension likely secondary to pulmonary embolisms -Cardiology was consulted no longer following at this time continue to treat with antibiotics History of seizure disorder. POA and stable. -Patient states she is not on Lamictal at home -Titrating down Lamictal discontinue Lamictal 03/09/17 -Continuing topiramate, at 100 mg twice a day Hypokalemia, Resolved - stable - will monitor Septic Encephalopathy; not present on admission; resolved. Patient had hallucinations, got out of bed and stooled on the floor. Likely related to either sepsis or combination of medications including morphine, Vistaril, and Ativan. - Stopped Vistaril except at bedtime, stop morphine, decrease Ativan - Resolved with reduction in pain medication - Currently on Seroquel which she apparently takes at home as well per her report Severe thrombocytopenia, acute. Present on admission. Resolved - Platelets reached as low as 31, due to sepsis - Platelets currently with in normal range Anion gap metabolic acidosis and lactic acidosis, acute. Present on admission, resolved. Secondary to lactic acidosis and PRISCILA. Gap 24. pH 7.26, pCO2 32.6, pO2 110, bicarb 14.2. - Resolved Hypovolemic Hyponatremia, acute. Present on admission. Resolved - Resolved History of IV drug abuse. POA and Active with heroin during the week prior to arrival. - Hepatitis C negative - HIV negative History of tobacco dependence. By mouth and active - Nicotine patch ordered Disposition: Antibiotics to continue through April 04. Patient will remain in-house or transfer to [facility] pending social work. GI Prophylaxis: H2 susan VTE Prophylaxis: Other (Pt has thrombocytopenia - no DVT prophylaxis for now.) VTE Mechanical Devices: Intermittant Pneumatic CD, Venous Foot Pump Resuscitation Status: CPR: Attempt Resuscitation Time spent 35 mins Alex Luis MD Mar 28, 2017 10:39
[2017-03-28 13:30] VITALS: PULSE 103; RESP 16; O2SAT 99
[2017-03-28 13:32] VITALS: BP 97/66; PULSE 103; RESP 17; O2SAT 99
[2017-03-28 15:57] VITALS: BP 109/75; PULSE 105
--- NOTE | 2017-03-28 17:15 | NUR ---
Mentation/pain Alert and orientedX3. c/o left shoulder pain once this shift, PRN given with effective management. c/o anxiety twice this shift, PRN given with effective management. Dr Lee spoke to patient. Stable Vital signs and afebrile. Call light with in reach for safety. stable mood. continue to monitor.
[2017-03-28 20:29] VITALS: BP 101/65; PULSE 109; RESP 18; O2SAT 100
[2017-03-28] MEDS: hydrOXYzine Pamoate 25 mg Capsule PO SCH (20:50)
[2017-03-29] MEDS: CeFAZolin 2 Gm/50 mL D5W IV Premix IV SCH ×3 (03:15→18:39)
[2017-03-29 04:27] VITALS: BP 98/73; RESP 16; O2SAT 98
[2017-03-29 04:45] VITALS: PULSE 104; RESP 16; O2SAT 98
--- NOTE | 2017-03-29 06:29 | NUR ---
Anxiety Patient is A&O x4, denied pain or nausea all shift. She complained of feeling anxious beginning of shift, received Ativan and was able to sleep for the rest of shift.
--- NOTE | 2017-03-29 08:13 | PCM.PNMED ---
Subjective Date of Service Mar 29, 2017 Subjective Patient seen and examined. No complaints. Vitals stable. Exam Vital Signs Vital Sign - Last Date Time Temp Pulse Resp B/P Pulse Ox O2 Delivery O2 Flow Rate FiO2 03/29/17 04:45 104 16 98 Room Air 03/29/17 04:27 36.9 98/73 Intake and Output 03/28/17 03/28/17 03/29/17 Cumulative From/Thru 15:00 23:00 07:00 02/16/17 23:36 - 03/29/17 06:00 Intake Total 1560 ml 462 ml 996220 ml Output Total 10924 ml Balance 1560 ml 462 ml 57873 ml Intake Oral 1440 ml 400 ml 90895 ml IV Total 120 ml 62 ml 88845 ml Tube Feeding 400 ml Platelets 490 ml Tube Irrigant 30 ml Output Urine Total 91293 ml Stool Total 1525 ml Urine/Stool Mix 6450 ml # Voids 3 1 117 # Bowel Movements 0 34 Exam Constitutional: Young female in no acute distress Head: Normocephalic atraumatic Chest: Clear to auscultation Cor: Regular rate and rhythm S1-S2 Abdomen: Soft nontender bowel sounds present Extremities: No pedal edema Lab and Diagnostics Result Diagram: 03/26/17 0941 03/29/17 0515 X-Rays, CTs and MRIs . X-RAY CHEST ONE VIEW, PORTABLE IMPRESSION: Diffuse bilateral patchy air space opacities suspicious for pneumonia. Dictated by: Delon Pelayo [facility] Interpreted: Jose Enrique York MD on 02/17/2017 X-RAY CHEST ONE VIEW, PORTABLE IMPRESSION: 1. Right internal jugular central venous catheter is in expected position. No pneumothorax. 2. Bilateral septic emboli as before. Dictated by: Lance Dan M.D. on 02/17/2017 CT CHEST, ABDOMEN AND PELVIS WITHOUT CONTRAST IMPRESSION: 1. Multiple bilateral cavitary lesions in the lungs consistent with recurrent septic emboli. The differential for these imaging findings includes inflammatory processes as well as metastatic disease but these are less likely given patient's prior history of septic emboli. 2. Slight asymmetric appearance of the right kidney with minimal perinephric stranding. However, evaluation for pyelonephritis is limited in the absence of intravenous contrast. Recommend correlation clinically. There is no hydronephrosis. 3. Mildly prominent bladder wall thickness likely due to incomplete distention. Recommend correlation with urinalysis. Dictated by: Sulaiman Haines M.D. on 02/17/2017 CT BRAIN WITHOUT CONTRAST IMPRESSION: 1. No acute intracranial abnormality. Dictated by: Sulaiman Haines M.D. on 02/17/2017 Cardiac Echo Impressions Echocardiogram Report Interpretation Summary Sinus tachycardia. Normal LV size and wall thickness. There is normal LV wall motion and systolic function. EF is 55-60%. There is severe RV dilation with normal wall motion. There is severe RA dilation. There is a 2.5x0.9 cm vegetation on the downstream side of the tricuspid valve leaflet. There is moderate tricuspid regurgittation. There is normal valve structure and function otherwise. Estimated PASP is 42 mm Hg assuming RA pressure of 3 mm Hg. Compared to prior study 08/04/2016 sinus tachycardia is new. RV dilation is new. Vegetation on the tricuspid valve is old. Tricuspid regurgitation is old Assessment & Plan 26 y/o female w/ a hx of tricuspid MSSA endocarditis, ongoing IVDA (meth and heroin), septic PE, pneumonia, presenting to the ED c/o dyspnea. #. Acute MSSA endocarditis; present on admission; ongoing and improving. -Sepsis and shock both resolved -White count normal, procal trending down -Daptomycin was discontinued 02/28/17 -Continue cefazolin (switched from naficillin by Dr. Lee) through April [address] Lee -Patient will remain here in the hospital until completion due to high risk of relapse unless she is [place] [facility] -Concerned about persistent fever; repeat Chest CT non contrast shows either lymphadenopathy versus possible neoplastic disease 03/02/17, culture this seems to be resolving 03/09/17 -Discontinued azithromycin 500 mg daily and linezolid 600 mg twice a day for possible pneumonia patient seems to be improving no longer has coarse breath sounds or wheezes/Rales/rhonchi (last dose 03/08/2017) -Continue DuoNeb's when necessary -Culture central line tip (03/10/17) -May be able to go T [facility] with swing bed to complete course of antibiotics #. Severe acute kidney injury. Present on admission. Resolved - Likely secondary to sepsis and hypotension and staphyloccocal glomerulonephritis. - C3/C4 decrease indicating likely infectious glomerulonephritis - Creatinine initially greater than 8; still trending down currently 1.04 - Nephrology consulted Dr. Patel (signed off with the patient on 02/29/2016) - Avoid nephrotoxic agents. This remained stable. No labs in about 4 days. #. Opioid dependence, poa, chronic. Stable. -The patient is tearful and frustrated that she is not receiving higher doses of opioid analgesics. Patient is demonstrating opioid seeking behaviors. She does not have an outpatient prescription for opioid analgesics. She is receiving oxycodone 5 mg every 4 hours when necessary. Nurses have observed the patient to pocket her oxycodone and administer them IV to herself. She was counseled regarding unacceptability this behavior. - Patient was counseled that increasing her opioid dependence with inpatient opioid medications, especially parenteral, of adverse long-term consequences for her health. - Current pain complaints consist of a chronic musculoskeletal complaints for which opioids are not indicated, and sepsis related rigors and musculoskeletal complaints which may be managed with antipyretics and nonsteroidal analgesics. - She should not receive additional opioids - Ativan 1 mg every 4 hours and will start decreasing Roxicodone - Patient remains on gabapentin 600 mg twice a day; home doses 3 times a day Possible clean and sober house after discharge. No other changes. Acute blood loss anemia; present on admission; active and improving. -Patient's hemoglobin this morning was 5.9 due to her disconnecting her central line to go the bathroom, with significant blood loss back through the line (02/26) -2 units PRBCs ordered stat and given on 02/27/17 -Patient's H&H is currently fluctuating between the low 8's-9's, transfuse if the patient drops below 8 -This remained stable. Last labs in about 4 days. One more CBC in the next several days. Acute sepsis with septic shock. Present on admission; resolved - Pt presented with temp 37.9, HR 145, BP 86/52, WBC 15.4 with left shift, lactic of 2.6. MSSA endocarditis with secondary bacteremia with persistently positive blood cultures at 5 days; CT positive for mycotic pulmonary embolism. Bcx negative since 02/21. Procal is down trending - Off norepinephrine for the time being; maintain mean arterial pressure of 65 mmHg - Discontinue daptomycin - Continue nafcillin through April 04 - Continue to follow blood cultures and CBC - Central line is now removed, midline catheter in place which was leaking was adjusted, now functioning well. -She remains stable. Persistent Diarrhea; present on admission; resolved 03/09/17 -Patient continues to have diarrhea which was present when she initially presented and then decrease with loperamide -Could be a sign of opiate withdrawal although she has been on Roxicodone -Continue Lomotil prn -Continue Florastor twice a day -Previous C. difficile was negative; repeat C. 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 Present on admission. Ongoing and improving. - CT chest showed septic pulmonary emboli bilaterally - Echocardiogram demonstrates a tricuspid vegetation, moderate tricuspid regurg , right sided heart failure - Dr. Patel and Dr. Riddle indicate that the patient is not a candidate is not a candidate at the moment and will require 6 weeks of antibiotics in 6 months off heroin -Patient's attempted injection of Roxicodone into her central line that raises the question whether she will meet surgical criteria for valve replacement. -Continue Eliquis for anticoagulation Left shoulder pain, acute on chronic. Present on admission. Resolving - Pt has history of septic joint of the left sternoclavicular joint; has been seen by orthopedics during the stay - Aspirate cell count, Gram stain, culture ordered 02/22/17 - Physical therapy to work with shoulder, continue Right ventricular heart failure with anasarca; present on admission; resolving -Severe right ventricular dilation and tricuspid regurg, with pulmonary hypertension likely secondary to pulmonary embolisms -Cardiology was consulted no longer following at this time continue to treat with antibiotics History of seizure disorder. POA and stable. -Patient states she is not on Lamictal at home -Titrating down Lamictal discontinue Lamictal 03/09/17 -Continuing topiramate, at 100 mg twice a day Hypokalemia, Resolved - stable - will monitor Septic Encephalopathy; not present on admission; resolved. Patient had hallucinations, got out of bed and stooled on the floor. Likely related to either sepsis or combination of medications including morphine, Vistaril, and Ativan. - Stopped Vistaril except at bedtime, stop morphine, decrease Ativan - Resolved with reduction in pain medication - Currently on Seroquel which she apparently takes at home as well per her report Severe thrombocytopenia, acute. Present on admission. Resolved - Platelets reached as low as 31, due to sepsis - Platelets currently with in normal range Anion gap metabolic acidosis and lactic acidosis, acute. Present on admission, resolved. Secondary to lactic acidosis and PRISCILA. Gap 24. pH 7.26, pCO2 32.6, pO2 110, bicarb 14.2. - Resolved Hypovolemic Hyponatremia, acute. Present on admission. Resolved - Resolved History of IV drug abuse. POA and Active with heroin during the week prior to arrival. - Hepatitis C negative - HIV negative History of tobacco dependence. By mouth and active - Nicotine patch ordered Disposition: Antibiotics to continue through April 04. Patient will remain in-house or transfer [place] [facility] [place] work. GI Prophylaxis: H2 susan VTE Prophylaxis: Other (Pt has thrombocytopenia - no DVT prophylaxis for now.) VTE Mechanical Devices: Intermittant Pneumatic CD Resuscitation Status: CPR: Attempt Resuscitation Time spent 35 mins Alex Luis MD Mar 29, 2017 08:13
[2017-03-29] MEDS: LORazepam 1 mg Tablet PO PRN ×2 (08:19→17:02)
[2017-03-29] MEDS: oxyCODONE 1 mg/mL 5 mL Liquid PO PRN ×3 (08:20→21:41)
--- NOTE | 2017-03-29 08:21 | NUR ---
Social Work-continued d/c planning: Data: EMR Reviewed. Pt is on day 40 of hospitalization for Sepsis per H&P. Pt is medically stable, but needs to remain at [facility] for course of IV abx. Referral has been made to [facility], no bed at this point. Resources have been provided to pt for Methadone Clinic at [facility]. Alternative resources provided to pt for disability information. UR specialist to call [facility] today and check on bed status. SW will continue to follow. Assessment: pt who will need skilled nursing IV abx. Plan: Pt has been accepted at [facility], no beds at this time. UR specialist to call [facility] today and check on bed status. If no bed at [facility] pt will remain at [facility] for IV abx until 04/04. SW will continue to follow. BINA Sanchez
[2017-03-29 08:54] VITALS: BP 109/73; PULSE 98; RESP 16; O2SAT 96
--- NOTE | 2017-03-29 11:13 | NUR ---
NUTRITION FOLLOW UP: ASSESS: 26 YO Female admitted with endocarditis, emboli on IV antibiotics. Pt continues with variable po intake of 50-100% of most meals. PMHX: Endocarditis, IVDA (meth and heroine), PE, PNA LABS: Reviewed. MEDS: Reviewed. GI: BM x 1 (03/25) CURRENT WT: 69.8 kg (03/12). Admit wt: 70.3 kg, IBW: 52.3 kg DIET: General, Ensure at lunch, 2 milks per tray. PO intake 50-100% most meals. ESTIMATED NEEDS: Calories: 3072-6134 kcal/day (25-30 kcal/kg BW) Protein: 55-70 g/day (0.8-1.0 g/kg BW) NUTRITION DIAGNOSIS: 1.) Inadequate oral intake related to chronic disease as evidence by reported weakness prior to admit and history of endocarditis and IVD use.---IMPROVING. NUTRITION INTERVENTION: 1.) Continue current diet and supplement/snacks as ordered. 2.) Recommend getting new wt of pt as last weight reported was on 03/12/17. MONITOR/EVALUATE: PO intake, weight, GI, labs, nutrition status. Follow per low nutrition risk guidelines.
--- NOTE | 2017-03-29 12:25 | PROG NOTE ---
[address] [address] PROGRESS NOTE PATIENT: RAJANI ALSTON : 1990 MR#: [id number] ADMIT: 02/17/2017 JOB ID: [id number] DATE: 03/29/2017 INFECTIOUS DISEASE FOLLOW UP NOTE: REASON FOR FOLLOWUP: Tricuspid valve endocarditis in an IV drug user. INTERVAL HISTORY: The patient continues with her IV therapy. Note that a couple days ago we had troubles with the leaking midline catheter and so was pulled and replaced with peripheral IV. Because we had a switch to a peripheral IV, we switched her antibiotics from nafcillin to cefazolin as it is much more easily administered through peripheral veins and she is nearing the end of her therapy in any event. The patient tells us she is walking around the [place] at least a couple times a day. No fevers, chills, sweats nausea, vomiting, diarrhea, shortness of breath. PHYSICAL EXAMINATION: Reveals an afebrile woman. Temperature 36.6, pulse 98, respiratory rate 16, blood pressure 109/73. She is saturating well on room air and she is in no distress. Examination of her lungs clear. Cardiac tones without new murmur. Abdomen benign. She has a left forearm peripheral IV which looks fine at this point. LABORATORY STUDIES: Include white count 9800, platelet count currently 309. Creatinine 0.93. No other notable labs. Final blood cultures were negative. We do not have any recent imaging. IMPRESSION: The patient continues to roll along and make excellent progress with respect to her treatment of her tricuspid valve endocarditis with secondary pulmonary emboli. RECOMMENDATIONS: 1. Will continue with cefazolin 2 g IV q.8 through the morning of April 04 at which time she can be discharged. 2. I will see the patient again on Tuesday, April 01 unless there are intercurrent problems.
[2017-03-29 14:00] VITALS: BP 108/70; PULSE 106; RESP 16; O2SAT 97
--- NOTE | 2017-03-29 18:28 | NUR ---
Pain/anxiety management Pt A/Ox4, No complains of increased pain. Oxycodone given x 2 during shift for L shoulder pain. Pain reported at tolerable level. PO Ativan administered x 2 at request. Pt rested quietly through out the shift, up and ambulated around the unit for 4 laps. Call light in reach, will continue to monitor.
[2017-03-29 18:37] VITALS: BP 110/74; PULSE 96; RESP 18; O2SAT 97
[2017-03-29 20:13] VITALS: BP 106/73; PULSE 101; RESP 18; O2SAT 97
[2017-03-29] MEDS: hydrOXYzine Pamoate 25 mg Capsule PO SCH (20:44)
[2017-03-30] MEDS: CeFAZolin 2 Gm/50 mL D5W IV Premix IV SCH ×3 (02:32→19:32)
[2017-03-30 04:09] VITALS: BP 94/62; PULSE 55; RESP 16; O2SAT 97
--- NOTE | 2017-03-30 06:13 | NUR ---
compliance patient compliant with cares. care ongoing.
[2017-03-30] MEDS: LORazepam 1 mg Tablet PO PRN ×3 (08:23→21:04)
[2017-03-30] MEDS: oxyCODONE 1 mg/mL 5 mL Liquid PO PRN ×2 (08:24→16:00)
[2017-03-30 15:12] VITALS: BP 100/69; PULSE 101; RESP 16; O2SAT 98
--- NOTE | 2017-03-30 16:31 | PCM.PNMED ---
Subjective Date of Service Mar 30, 2017 Subjective No overnight events. Exam Vital Signs Vital Sign - Last Date Time Temp Pulse Resp B/P Pulse Ox O2 Delivery O2 Flow Rate FiO2 03/30/17 15:12 37.2 101 16 100/69 98 Room Air Intake and Output 03/29/17 03/29/17 03/30/17 Cumulative From/Thru 15:00 23:00 07:00 02/16/17 23:36 - 03/30/17 06:44 Intake Total 1068 ml 500 ml 945864 ml Output Total 18846 ml Balance 1068 ml 500 ml 65560 ml Intake Oral 1008 ml 350 ml 03427 ml IV Total 60 ml 150 ml 72841 ml Tube Feeding 400 ml Platelets 490 ml Tube Irrigant 30 ml Output Urine Total 50870 ml Stool Total 1525 ml Urine/Stool Mix 6450 ml # Voids 4 1 122 # Bowel Movements 0 0 34 Exam Constitutional: Young female in no acute distress Head: Normocephalic atraumatic Chest: Clear to auscultation Cor: Regular rate and rhythm S1-S2 Abdomen: Soft nontender bowel sounds present Extremities: No pedal edema IVs and Medications Medications Reviewed: Medications were reviewed in detail Lab and Diagnostics Result Diagram: 03/26/17 0941 03/29/17 0515 X-Rays, CTs and MRIs . X-RAY CHEST ONE VIEW, PORTABLE IMPRESSION: Diffuse bilateral patchy air space opacities suspicious for pneumonia. Dictated by: Delon Pelayo [facility] Interpreted: Jose Enrique York MD on 02/17/2017 X-RAY CHEST ONE VIEW, PORTABLE IMPRESSION: 1. Right internal jugular central venous catheter is in expected position. No pneumothorax. 2. Bilateral septic emboli as before. Dictated by: Lance Dan M.D. on 02/17/2017 CT CHEST, ABDOMEN AND PELVIS WITHOUT CONTRAST IMPRESSION: 1. Multiple bilateral cavitary lesions in the lungs consistent with recurrent septic emboli. The differential for these imaging findings includes inflammatory processes as well as metastatic disease but these are less likely given patient's prior history of septic emboli. 2. Slight asymmetric appearance of the right kidney with minimal perinephric stranding. However, evaluation for pyelonephritis is limited in the absence of intravenous contrast. Recommend correlation clinically. There is no hydronephrosis. 3. Mildly prominent bladder wall thickness likely due to incomplete distention. Recommend correlation with urinalysis. Dictated by: Sulaiman Haines M.D. on 02/17/2017 CT BRAIN WITHOUT CONTRAST IMPRESSION: 1. No acute intracranial abnormality. Dictated by: Sulaiman Haines M.D. on 02/17/2017 Cardiac Echo Impressions Echocardiogram Report Interpretation Summary Sinus tachycardia. Normal LV size and wall thickness. There is normal LV wall motion and systolic function. EF is 55-60%. There is severe RV dilation with normal wall motion. There is severe RA dilation. There is a 2.5x0.9 cm vegetation on the downstream side of the tricuspid valve leaflet. There is moderate tricuspid regurgittation. There is normal valve structure and function otherwise. Estimated PASP is 42 mm Hg assuming RA pressure of 3 mm Hg. Compared to prior study 08/04/2016 sinus tachycardia is new. RV dilation is new. Vegetation on the tricuspid valve is old. Tricuspid regurgitation is old Assessment & Plan 26 y/o female w/ a hx of tricuspid MSSA endocarditis, ongoing IVDA (meth and heroin), septic PE, pneumonia, presenting to the ED c/o dyspnea. #. Acute MSSA endocarditis; present on admission; ongoing and improving. -Sepsis and shock both resolved -White count normal, procal trending down -Daptomycin was discontinued 02/28/17 -Continue cefazolin (switched from naficillin by Dr. Lee) through April [address] Lee -Patient will remain here in the hospital until completion due to high risk of relapse unless she is accepted at [facility] -Concerned about persistent fever; repeat Chest CT non contrast shows either lymphadenopathy versus possible neoplastic disease 03/02/17, culture this seems to be resolving 03/09/17 -Discontinued azithromycin 500 mg daily and linezolid 600 mg twice a day for possible pneumonia patient seems to be improving no longer has coarse breath sounds or wheezes/Rales/rhonchi (last dose 03/08/2017) -Continue DuoNeb's when necessary -Cultured central line tip (03/10/17) #. Severe acute kidney injury. Present on admission. Resolved - Likely secondary to sepsis and hypotension and staphyloccocal glomerulonephritis. - C3/C4 decrease indicating likely infectious glomerulonephritis - Creatinine initially greater than 8; still trending down currently 1.04 - Nephrology consulted Dr. Patel (signed off with the patient on 02/29/2016) - Avoid nephrotoxic agents. This remained stable. No labs in about 4 days. #. Opioid dependence, poa, chronic. Stable. -The patient is tearful and frustrated that she is not receiving higher doses of opioid analgesics. Patient is demonstrating opioid seeking behaviors. She does not have an outpatient prescription for opioid analgesics. She is receiving oxycodone 5 mg every 4 hours when necessary. Nurses have observed the patient to pocket her oxycodone and administer them IV to herself. She was counseled regarding unacceptability this behavior. - Patient was counseled that increasing her opioid dependence with inpatient opioid medications, especially parenteral, of adverse long-term consequences for her health. - Current pain complaints consist of a chronic musculoskeletal complaints for which opioids are not indicated, and sepsis related rigors and musculoskeletal complaints which may be managed with antipyretics and nonsteroidal analgesics. - She should not receive additional opioids - Ativan 1 mg every 4 hours and will start decreasing Roxicodone - Patient remains on gabapentin 600 mg twice a day; home doses 3 times a day Possible clean and sober house after discharge. No other changes. Acute blood loss anemia; present on admission; active and improving. -Patient's hemoglobin this morning was 5.9 due to her disconnecting her central line to go the bathroom, with significant blood loss back through the line (02/26) -2 units PRBCs ordered stat and given on 02/27/17 -Patient's H&H is currently fluctuating between the low 8's-9's, transfuse if the patient drops below 8 -This remained stable. Last labs in about 4 days. One more CBC in the next several days. Acute sepsis with septic shock. Present on admission; resolved - Pt presented with temp 37.9, HR 145, BP 86/52, WBC 15.4 with left shift, lactic of 2.6. MSSA endocarditis with secondary bacteremia with persistently positive blood cultures at 5 days; CT positive for mycotic pulmonary embolism. Bcx negative since 02/21. Procal is down trending - Off norepinephrine for the time being; maintain mean arterial pressure of 65 mmHg - Discontinue daptomycin - Continue nafcillin through April 04 - Continue to follow blood cultures and CBC - Central line is now removed, midline catheter in place which was leaking was adjusted, now functioning well. -She remains stable. Persistent Diarrhea; present on admission; resolved 03/09/17 -Patient continues to have diarrhea which was present when she initially presented and then decrease with loperamide -Could be a sign of opiate withdrawal although she has been on Roxicodone -Continue Lomotil prn -Continue Florastor twice a day -Previous C. difficile was negative; repeat C. 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 Present on admission. Ongoing and improving. - CT chest showed septic pulmonary emboli bilaterally - Echocardiogram demonstrates a tricuspid vegetation, moderate tricuspid regurg , right sided heart failure - Dr. Patel and Dr. Riddle indicate that the patient is not a candidate is not a candidate at the moment and will require 6 weeks of antibiotics in 6 months off heroin -Patient's attempted injection of Roxicodone into her central line that raises the question whether she will meet surgical criteria for valve replacement. -Continue Eliquis for anticoagulation Left shoulder pain, acute on chronic. Present on admission. Resolving - Pt has history of septic joint of the left sternoclavicular joint; has been seen by orthopedics during the stay - Aspirate cell count, Gram stain, culture ordered 02/22/17 - Physical therapy to work with shoulder, continue Right ventricular heart failure with anasarca; present on admission; resolving -Severe right ventricular dilation and tricuspid regurg, with pulmonary hypertension likely secondary to pulmonary embolisms -Cardiology was consulted no longer following at this time continue to treat with antibiotics History of seizure disorder. POA and stable. -Patient states she is not on Lamictal at home -Titrating down Lamictal discontinue Lamictal 03/09/17 -Continuing topiramate, at 100 mg twice a day Hypokalemia, Resolved - stable - will monitor Septic Encephalopathy; not present on admission; resolved. Patient had hallucinations, got out of bed and stooled on the floor. Likely related to either sepsis or combination of medications including morphine, Vistaril, and Ativan. - Stopped Vistaril except at bedtime, stop morphine, decrease Ativan - Resolved with reduction in pain medication - Currently on Seroquel which she apparently takes at home as well per her report Severe thrombocytopenia, acute. Present on admission. Resolved - Platelets reached as low as 31, due to sepsis - Platelets currently with in normal range Anion gap metabolic acidosis and lactic acidosis, acute. Present on admission, resolved. Secondary to lactic acidosis and PRISCILA. Gap 24. pH 7.26, pCO2 32.6, pO2 110, bicarb 14.2. - Resolved Hypovolemic Hyponatremia, acute. Present on admission. Resolved - Resolved History of IV drug abuse. POA and Active with heroin during the week prior to arrival. - Hepatitis C negative - HIV negative History of tobacco dependence. By mouth and active - Nicotine patch ordered Disposition: Antibiotics to continue through April 04. Patient will remain in-house or transfer to [facility] pending social work. GI Prophylaxis: H2 susan VTE Prophylaxis: Other (Pt has thrombocytopenia - no DVT prophylaxis for now.) VTE Mechanical Devices: Intermittant Pneumatic CD Resuscitation Status: CPR: Attempt Resuscitation Moreno Mendez MD Mar 30, 2017 16:31
--- NOTE | 2017-03-30 16:35 | NUR ---
IV L forearm IV, pink, tender and swollen. Pt is very difficult IV start. IV D/Cd intact, IV therapy contacted to restart IV access. Call light in reach, will continue to monitor. Addendum: 03/30/17 at 1905 by SG MAY RN IV therapy unable to gain IV access, notified, Order given okay to place IV in foot. IV placed by IV therapy in L Foot. Pt instructed to avoid weigh bearing on L Foot at this time.
[2017-03-30 20:09] VITALS: BP 109/64; PULSE 95; RESP 16; O2SAT 98
[2017-03-30] MEDS: hydrOXYzine Pamoate 25 mg Capsule PO SCH (21:01)
[2017-03-31] MEDS: CeFAZolin 2 Gm/50 mL D5W IV Premix IV SCH (03:07)
[2017-03-31 04:53] VITALS: BP 103/69; PULSE 93; RESP 16; O2SAT 98
--- NOTE | 2017-03-31 05:44 | NUR ---
NOC Activity Pt has been pleasant and cooperative with care. Denies chest pain, sob, n/v or abd discomfort. IV ABx administered as ordered. Continuing care.
[2017-03-31] MEDS: LORazepam 1 mg Tablet PO PRN ×2 (09:35→15:34)
[2017-03-31] MEDS ORDERED: Oritavancin Diphosphate 1,200 MG in Dextrose 5% 1,000 ML IV ONE (12:25)
--- NOTE | 2017-03-31 12:51 | PROG NOTE ---
[address] [address] PROGRESS NOTE PATIENT: RAJANI ALSTON : 1990 MR#: [id number] ADMIT: 02/17/2017 JOB ID: [id number] DATE: 03/31/2017 INFECTIOUS DISEASE FOLLOWUP NOTE: REASON FOR FOLLOWUP: MSSA endocarditis. INTERVAL HISTORY: Over the past couple of days there has been a great deal of difficulties with the patient's IV access. Recall that we had lost our central access and we were forced to switch to peripheral IVs a few days ago. Because we did not have central access, I changed the antibiotic from nafcillin to cefazolin to be easier on the veins. The patient has lost a couple of IVs in the past two days and we are currently basically out of IV access sites. She still has four or five days of IV antibiotics to go to finish her six week course. The patient, for her part, feels fine today except for frustration with her IV lines. She has no fevers, chills, or sweats. She has really no complaints. PHYSICAL EXAMINATION: Reveals an afebrile woman temp 37.1, pulse 92, respiratory rate 16, blood pressure 103/69. She is saturating well on room air, in no acute distress. Mental status sharp. Oral cavity negative. Lungs clear. Cardiac tones without murmur. Abdomen benign. LABORATORY DATA: Last labs were done five days ago. White count was normal at that point. Her creatinine was done three days ago and was 0.93. Serologic studies include negative hepatitis C, which was done long ago. All followup blood cultures are negative. IMAGING: No new imaging. IMPRESSION: This patient is doing well and is very near the end of her IV antibiotic therapy. We are now running out of IV lines and have basically 4-1/2 days of treatment to go. At this point I think if we could get one IV in for just a few hours and give her a dose of oritavancin this would be cost effective as it would complete her therapy and get her out of the hospital four days earlier. It would also solve our continuing problems with IV access. RECOMMENDATIONS: 1. Oritavancin 1200 mg x1 today. 2. An echocardiogram should be done too, so that we can establish the condition of her valves at the time of discharge. This is part of the new endocarditis guidelines, an end of treatment echo. 3. The patient could be discharged at any time once the echo is accomplished and she has received the final dose of oritavancin. 4. ID will sign off at the end of this very long therapy at this point. I reminded the patient not to inject drugs anymore, as she is at extremely high risk to develop recurrent endocarditis, which could easily be lethal. Recall that she has already had two episodes in one year. She indicated that she has already signed up for Alcoholics Anonymous and will be avoiding substance abuse. Thank you very much for this consult.
[2017-03-31] MEDS ORDERED: Dextrose 5% 250 ML IV ONE ×2 (13:09→15:28)
[2017-03-31 14:38] VITALS: BP 105/74; PULSE 111; RESP 18; O2SAT 100
--- NOTE | 2017-03-31 14:39 | PCM.PNMED ---
Subjective Date of Service Mar 31, 2017 Subjective Lost IV access overnight, IV placed in L Foot. Exam Vital Signs Vital Sign - Last Date Time Temp Pulse Resp B/P Pulse Ox O2 Delivery O2 Flow Rate FiO2 03/31/17 04:53 37.1 93 16 103/69 98 Room Air Intake and Output 03/30/17 03/30/17 03/31/17 Cumulative From/Thru 15:00 23:00 07:00 02/16/17 23:36 - 03/31/17 06:01 Intake Total 836 ml 300 ml 742661 ml Output Total 15923 ml Balance 836 ml 300 ml 06792 ml Intake Oral 836 ml 300 ml 21243 ml IV Total 66861 ml Tube Feeding 400 ml Platelets 490 ml Tube Irrigant 30 ml Output Urine Total 31420 ml Stool Total 1525 ml Urine/Stool Mix 6450 ml # Voids 3 1 126 # Bowel Movements 1 35 Exam Constitutional: Young female in no acute distress Head: Normocephalic atraumatic Chest: Clear to auscultation Cor: Regular rate and rhythm S1-S2 Abdomen: Soft nontender bowel sounds present Extremities: No pedal edema IVs and Medications Medications Reviewed: Medications were reviewed in detail Lab and Diagnostics Result Diagram: 03/26/17 0941 03/29/17 0515 X-Rays, CTs and MRIs . X-RAY CHEST ONE VIEW, PORTABLE IMPRESSION: Diffuse bilateral patchy air space opacities suspicious for pneumonia. Dictated by: Delon Pelayo RR Interpreted: Jose Enrique York MD on 02/17/2017 X-RAY CHEST ONE VIEW, PORTABLE IMPRESSION: 1. Right internal jugular central venous catheter is in expected position. No pneumothorax. 2. Bilateral septic emboli as before. Dictated by: Lance Dan M.D. on 02/17/2017 CT CHEST, ABDOMEN AND PELVIS WITHOUT CONTRAST IMPRESSION: 1. Multiple bilateral cavitary lesions in the lungs consistent with recurrent septic emboli. The differential for these imaging findings includes inflammatory processes as well as metastatic disease but these are less likely given patient's prior history of septic emboli. 2. Slight asymmetric appearance of the right kidney with minimal perinephric stranding. However, evaluation for pyelonephritis is limited in the absence of intravenous contrast. Recommend correlation clinically. There is no hydronephrosis. 3. Mildly prominent bladder wall thickness likely due to incomplete distention. Recommend correlation with urinalysis. Dictated by: Sulaiman Haines M.D. on 02/17/2017 CT BRAIN WITHOUT CONTRAST IMPRESSION: 1. No acute intracranial abnormality. Dictated by: Sulaiman Haines M.D. on 02/17/2017 Cardiac Echo Impressions Echocardiogram Report Interpretation Summary Sinus tachycardia. Normal LV size and wall thickness. There is normal LV wall motion and systolic function. EF is 55-60%. There is severe RV dilation with normal wall motion. There is severe RA dilation. There is a 2.5x0.9 cm vegetation on the downstream side of the tricuspid valve leaflet. There is moderate tricuspid regurgittation. There is normal valve structure and function otherwise. Estimated PASP is 42 mm Hg assuming RA pressure of 3 mm Hg. Compared to prior study 08/04/2016 sinus tachycardia is new. RV dilation is new. Vegetation on the tricuspid valve is old. Tricuspid regurgitation is old Assessment & Plan 26 y/o female w/ a hx of tricuspid MSSA endocarditis, ongoing IVDA (meth and heroin), septic PE, pneumonia, presenting to the ED c/o dyspnea. # Acute MSSA endocarditis; present on admission; ongoing and improving. -Sepsis and shock both resolved -White count normal, procal trended down -Daptomycin was discontinued 02/28/17, Initially tx with naficillin, then switched to Cefazolin by ID. -03/31- ID, Dr. Lee, changed abx to final dose of Oritavancin 1200 mg x1. Will need repeat Echo. Can be discharged once Echo completed. # Severe acute kidney injury. Present on admission. Resolved - Likely secondary to sepsis and hypotension and staphyloccocal glomerulonephritis. - C3/C4 decrease indicating likely infectious glomerulonephritis - Creatinine initially greater than 8; still trending down currently 1.04 - Nephrology consulted Dr. Patel (signed off with the patient on 02/29/2016) - Avoid nephrotoxic agents. # Opioid dependence, poa, chronic. active - Patient was counseled that increasing her opioid dependence with inpatient opioid medications, especially parenteral, of adverse long-term consequences for her health. - Current pain complaints consist of a chronic musculoskeletal complaints for which opioids are not indicated, and sepsis related rigors and musculoskeletal complaints which may be managed with antipyretics and nonsteroidal analgesics. - She should not receive additional opioids - Patient remains on gabapentin 600 mg twice a day; home doses 3 times a day # Acute blood loss anemia; present on admission; active and improving. -Patient's hemoglobin this morning was 5.9 due to her disconnecting her central line to go the bathroom, with significant blood loss back through the line (02/26) -2 units PRBCs ordered stat and given on 02/27/17 -Patient's H&H is currently fluctuating between the low 8's-9's, transfuse if the patient drops below 8 -This remained stable. Last labs in about 4 days. One more CBC in the next several days. # Acute sepsis with septic shock. Present on admission; resolved - Pt presented with temp 37.9, HR 145, BP 86/52, WBC 15.4 with left shift, lactic of 2.6. MSSA endocarditis with secondary bacteremia with persistently positive blood cultures at 5 days; CT positive for mycotic pulmonary embolism. Bcx negative since 02/21. Procal is down trending - Off norepinephrine for the time being; maintain mean arterial pressure of 65 mmHg - Discontinue daptomycin - Continue nafcillin through April 04 - Continue to follow blood cultures and CBC - Central line is now removed, midline catheter in place which was leaking was adjusted, now functioning well. -She remains stable. 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 Present on admission. Ongoing and improving. - CT chest showed septic pulmonary emboli bilaterally - Echocardiogram demonstrates a tricuspid vegetation, moderate tricuspid regurg , right sided heart failure - Dr. Patel and Dr. Riddle indicate that the patient is not a candidate is not a candidate at the moment and will require 6 weeks of antibiotics in 6 months off heroin -Patient's attempted injection of Roxicodone into her central line that raises the question whether she will meet surgical criteria for valve replacement. -Continue Eliquis for anticoagulation # Left shoulder pain, acute on chronic. Present on admission. Resolving - Pt has history of septic joint of the left sternoclavicular joint; has been seen by orthopedics during the stay - Aspirate cell count, Gram stain, culture ordered 02/22/17 - Physical therapy to work with shoulder, continue # Right ventricular heart failure with anasarca; present on admission; resolving -Severe right ventricular dilation and tricuspid regurg, with pulmonary hypertension likely secondary to pulmonary embolisms -Cardiology was consulted no longer following at this time continue to treat with antibiotics # History of seizure disorder. POA and stable. -Patient states she is not on Lamictal at home -Titrating down Lamictal discontinue Lamictal 03/09/17 -Continuing topiramate, at 100 mg twice a day Septic Encephalopathy; not present on admission; resolved. Patient had hallucinations, got out of bed and stooled on the floor. Likely related to either sepsis or combination of medications including morphine, Vistaril, and Ativan. - Stopped Vistaril except at bedtime, stop morphine, decrease Ativan - Resolved with reduction in pain medication - Currently on Seroquel which she apparently takes at home as well per her report Severe thrombocytopenia, acute. Present on admission. Resolved - Platelets reached as low as 31, due to sepsis - Platelets currently with in normal range History of IV drug abuse. POA and Active with heroin during the week prior to arrival. - Hepatitis C negative - HIV negative History of tobacco dependence. By mouth and active - Nicotine patch ordered Disposition: Antibiotics to continue through April 04. Patient will remain in-house or transfer [place] [facility] [place]. GI Prophylaxis: H2 susan VTE Prophylaxis: Other (Pt has thrombocytopenia - no DVT prophylaxis for now.) VTE Mechanical Devices: Intermittant Pneumatic CD Resuscitation Status: CPR: Attempt Resuscitation Moreno Mendez MD Mar 31, 2017 14:39
--- NOTE | 2017-03-31 17:16 | DRSVH ---
[facility] [address] [place] [address] Echocardiogram Report Name: RAJANI ALSTON JStudeliza Mirza e: 03/31/2017 Height: 63 in Hospital Exam Location: [facility] Weight: 153 lb Gender: Female BSA: 1.7 m2 : 1990 Age: 26 yrs BP: 103/69 mm Hg Reason For Study: Endocarditis Ordering Physician: [facility] Performed By: Lara Ventura Referring Physician: [facility] Interpretation Summary Small left ventricular cavity with ejection fraction 55-60%. Flattened septum is consistent with RV pressure/volume overload. Severely dilated right ventricle with normal systolic function. Severely dilated right atrium. There is a large vegetation (2.1x1.2 cm) on the tricuspid valve. Incomplete coaptation of the tricuspid valve leaflets. Severe tricuspid regurgitation. Comparison is made with the echocardiogram of 02/17/2017 and 07/29/2016, there is progressive volume load on the right ventricle. Procedure: A two-dimensional transthoracic echocardiogram with color flow and Doppler was performed in limited views only. Focused echocardiogram to reassess prior to discharge. The study quality was technically adequate. Comparison is made with the echocardiogram of 02/17/2017. The patient was in normal sinus rhythm during the exam. Left Ventricle: The left ventricular cavity is small. There is normal left ventricular wall thickness. The ejection fraction is estimated to be 55-60%. Flattened septum is consistent with RV pressure/volume overload. Right Ventricle: The right ventricle is severely dilated. The right ventricular systolic function is normal. Atria: The left atrial size is normal. The right atrium is severely dilated. The interatrial septum is intact with no evidence for an atrial septal defect. Mitral Valve: The mitral valve is normal in structure and function. There is trace mitral regurgitation. Aortic Valve: The aortic valve is trileaflet. The aortic valve opens well. No aortic regurgitation is present. Tricuspid Valve: There is a large vegetation or mass on the tricuspid valve. Incomplete coaptation of the tricuspid valve leaflets. There is severe tricuspid regurgitation. The right ventricular systolic pressure is estimated at 22 mmHg assuming a right atrial pressure of 3 mm Hg. RVSP is underestimated due to incomplete doppler signal resulting from severe tricuspid regurgitation. Pulmonic Valve: The pulmonic valve is not well seen, but is grossly normal. There is a trace or physiologic amount of pulmonic regurgitation. Great Vessels: The aortic root is normal size. The ascending aorta is normal in size. The IVC is of normal diameter and collapses greater than 50% with a sniff. This suggests a low right atrial pressure of 3 mm Hg. Pericardium/ Pleura There is a trivial pericardial effusion noted. There is no pleural effusion. MMode/2D Measurements & Calculations LVIDd: 3.6 cm IVC diam: 2.1 cm LVIDs: 2.5 cm FS: 30.1 % IVSd: 0.88 cm LVPWd: 1.1 cm LVOT diam: 2.2 cm RA area: 24.3 cm2 asc Aorta Diam: 2.9 cm LV james. diameter/BSA (cm/m^2): 2.1 LV sys. diameter/BSA (cm/m^2): 1.5 TAPSE: 2.6 cm Doppler Measurements & Calculations LVOT Max Fidel: 82.9 cm/sec TR max fidel: 216.4 cm/sec TR max P.7 mmHg LV V1 max P.7 mmHg LV V1 VTI: 13.1 cm Electronically signed by: Danish Delcid on Reading Physician:03/31/2017 05:15 PM
--- NOTE | 2017-03-31 17:36 | NUR ---
Social Work-readiness for discharge/ rounds: Data: EMR Reviewed. Pt is on day 42 of hospitalization for Sepsis per H&P. Pt is medically stable, but needs to remain at [facility] for course of IV abx. Resources have been provided to pt for Methadone Clinic at [facility]. Alternative resources provided to pt for disability information. INformation also provided to pt so she can access medical records at discharge. SW will continue to follow. Assessment: pt who will need long-term IV abx. Plan: Pt to remain at [facility] until Wednesday 04/04 for IV abx then pt to discharge home. Resources have been provided to pt. SW will continue to follow. BINA Sanchez
--- NOTE | 2017-03-31 18:30 | NUR ---
Antibiotic: Infectious disease Dr prescribed Oritavancin infusion before her discharge planned for tomorrow. A new IV needed to be inserted by IV theraapy before the med. A warm blanket was placed on the IV site so it would keep infusing. The infusion rate was reduced from 333ml/hr to 100ml/hr. and the IV was readjusted , and it seems to be working well at 100ml hourly. Will pass this information on to the oncoming shift
[2017-03-31 20:20] VITALS: BP 99/68; PULSE 63; RESP 18; O2SAT 98
[2017-03-31] MEDS: hydrOXYzine Pamoate 25 mg Capsule PO SCH (20:42)
--- NOTE | 2017-04-01 04:26 | NUR ---
NOC Activity pt has been pleasant and cooperative with care. Pt appears to be excited and feeling positive about her getting discharge and making a change with her life. ABx running as ordered. Reports of shoulder pain, controlled with oxicodone. Denies chest pain, sob, n/v or abd discomfort. Continuing to monitor.
[2017-04-01 05:38] VITALS: BP 106/73; PULSE 60; RESP 18; O2SAT 97
[2017-04-01] MEDS: LORazepam 1 mg Tablet PO PRN ×2 (05:48→12:02)
--- NOTE | 2017-04-01 09:25 | PCM.PNMED ---
Subjective Date of Service Apr 01, 2017 Subjective Had Temp of 38 yesterday afternoon. Exam Vital Signs Vital Sign - Last Date Time Temp Pulse Resp B/P Pulse Ox O2 Delivery O2 Flow Rate FiO2 04/01/17 05:38 36.1 60 18 106/73 97 Room Air Intake and Output 03/31/17 03/31/17 04/01/17 Cumulative From/Thru 15:00 23:00 07:00 02/16/17 23:36 - 04/01/17 05:45 Intake Total 1425 ml 380 ml 266710 ml Output Total 38136 ml Balance 1425 ml 380 ml 00172 ml Intake Oral 1425 ml 380 ml 46981 ml IV Total 29854 ml Tube Feeding 400 ml Platelets 490 ml Tube Irrigant 30 ml Output Urine Total 55980 ml Stool Total 1525 ml Urine/Stool Mix 6450 ml # Voids 4 2 132 # Bowel Movements 1 0 36 Exam Constitutional: Young female in no acute distress Head: Normocephalic atraumatic Chest: Clear to auscultation Cor: Regular rate and rhythm S1-S2 Abdomen: Soft nontender bowel sounds present Extremities: No pedal edema IVs and Medications Medications Reviewed: Medications were reviewed in detail Lab and Diagnostics Result Diagram: 03/26/17 0941 03/29/17 0515 X-Rays, CTs and MRIs . X-RAY CHEST ONE VIEW, PORTABLE IMPRESSION: Diffuse bilateral patchy air space opacities suspicious for pneumonia. Dictated by: Delon Pelayo Maryjane Interpreted: Jose Enrique York MD on 02/17/2017 X-RAY CHEST ONE VIEW, PORTABLE IMPRESSION: 1. Right internal jugular central venous catheter is in expected position. No pneumothorax. 2. Bilateral septic emboli as before. Dictated by: Lance Dan M.D. on 02/17/2017 CT CHEST, ABDOMEN AND PELVIS WITHOUT CONTRAST IMPRESSION: 1. Multiple bilateral cavitary lesions in the lungs consistent with recurrent septic emboli. The differential for these imaging findings includes inflammatory processes as well as metastatic disease but these are less likely given patient's prior history of septic emboli. 2. Slight asymmetric appearance of the right kidney with minimal perinephric stranding. However, evaluation for pyelonephritis is limited in the absence of intravenous contrast. Recommend correlation clinically. There is no hydronephrosis. 3. Mildly prominent bladder wall thickness likely due to incomplete distention. Recommend correlation with urinalysis. Dictated by: Sulaiman Haines M.D. on 02/17/2017 CT BRAIN WITHOUT CONTRAST IMPRESSION: 1. No acute intracranial abnormality. Dictated by: Sulaiman Haines M.D. on 02/17/2017 Cardiac Echo Impressions 03/31/17- Echo- Interpretation Summary Small left ventricular cavity with ejection fraction 55-60%. Flattened septum is consistent with RV pressure/volume overload. Severely dilated right ventricle with normal systolic function. Severely dilated right atrium. There is a large vegetation (2.1x1.2 cm) on the tricuspid valve. Incomplete coaptation of the tricuspid valve leaflets. Severe tricuspid regurgitation. Comparison is made with the echocardiogram of 02/17/2017 and 07/29/2016, there is progressive volume load on the right ventricle. Echocardiogram Report Interpretation Summary Sinus tachycardia. Normal LV size and wall thickness. There is normal LV wall motion and systolic function. EF is 55-60%. There is severe RV dilation with normal wall motion. There is severe RA dilation. There is a 2.5x0.9 cm vegetation on the downstream side of the tricuspid valve leaflet. There is moderate tricuspid regurgittation. There is normal valve structure and function otherwise. Estimated PASP is 42 mm Hg assuming RA pressure of 3 mm Hg. Compared to prior study 08/04/2016 sinus tachycardia is new. RV dilation is new. Vegetation on the tricuspid valve is old. Tricuspid regurgitation is old Assessment & Plan 26 y/o female w/ a hx of tricuspid MSSA endocarditis, ongoing IVDA (meth and heroin), septic PE, pneumonia, presenting to the ED c/o dyspnea. # Acute MSSA endocarditis; present on admission; ongoing and improving. -Sepsis and shock both resolved -White count normal, procal trended down -Daptomycin was discontinued 02/28/17, Initially tx with naficillin, then switched to Cefazolin by ID. -03/31- ID, Dr. Lee, changed abx to final dose of Oritavancin 1200 mg x1. Will need repeat Echo. - Echo repeated prior to possible discharge. 03/31/17- Echo- again shows large vegetation now size is (2.1x1.2 cm) on the tricuspid valve, progressive volume load on the right ventricle. # Severe acute kidney injury. Present on admission. Resolved - Likely secondary to sepsis and hypotension and staphyloccocal glomerulonephritis. - C3/C4 decrease indicating likely infectious glomerulonephritis - Creatinine initially greater than 8; still trending down currently 1.04 - Nephrology consulted Dr. Patel (signed off with the patient on 02/29/2016) - Avoid nephrotoxic agents. # Opioid dependence, poa, chronic. active - Patient was counseled that increasing her opioid dependence with inpatient opioid medications, especially parenteral, of adverse long-term consequences for her health. - Current pain complaints consist of a chronic musculoskeletal complaints for which opioids are not indicated, and sepsis related rigors and musculoskeletal complaints which may be managed with antipyretics and nonsteroidal analgesics. - She should not receive additional opioids - Patient remains on gabapentin 600 mg twice a day; home doses 3 times a day # Acute blood loss anemia; present on admission; active and improving. -Patient's hemoglobin this morning was 5.9 due to her disconnecting her central line to go the bathroom, with significant blood loss back through the line (02/26) -2 units PRBCs ordered stat and given on 02/27/17 -Patient's H&H is currently fluctuating between the low 8's-9's, transfuse if the patient drops below 8 -This remained stable. Last labs in about 4 days. One more CBC in the next several days. # Acute sepsis with septic shock. Present on admission; resolved - Pt presented with temp 37.9, HR 145, BP 86/52, WBC 15.4 with left shift, lactic of 2.6. MSSA endocarditis with secondary bacteremia with persistently positive blood cultures at 5 days; CT positive for mycotic pulmonary embolism. Bcx negative since 02/21. Procal is down trending - Off norepinephrine for the time being; maintain mean arterial pressure of 65 mmHg - Discontinue daptomycin - Continue nafcillin through April 04 - Continue to follow blood cultures and CBC - Central line is now removed, midline catheter in place which was leaking was adjusted, now functioning well. -She remains stable. 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 Present on admission. Ongoing and improving. - CT chest showed septic pulmonary emboli bilaterally - Echocardiogram demonstrates a tricuspid vegetation, moderate tricuspid regurg , right sided heart failure - Dr. Patel and Dr. Riddle indicate that the patient is not a candidate is not a candidate at the moment and will require 6 weeks of antibiotics in 6 months off heroin -Patient's attempted injection of Roxicodone into her central line that raises the question whether she will meet surgical criteria for valve replacement. -Continue Eliquis for anticoagulation # Left shoulder pain, acute on chronic. Present on admission. Resolving - Pt has history of septic joint of the left sternoclavicular joint; has been seen by orthopedics during the stay - Aspirate cell count, Gram stain, culture ordered 02/22/17 - Physical therapy to work with shoulder, continue # Right ventricular heart failure with anasarca; present on admission; resolving -Severe right ventricular dilation and tricuspid regurg, with pulmonary hypertension likely secondary to pulmonary embolisms -Cardiology was consulted no longer following at this time continue to treat with antibiotics # History of seizure disorder. POA and stable. -Patient states she is not on Lamictal at home -Titrating down Lamictal discontinue Lamictal 03/09/17 -Continuing topiramate, at 100 mg twice a day Septic Encephalopathy; not present on admission; resolved. Patient had hallucinations, got out of bed and stooled on the floor. Likely related to either sepsis or combination of medications including morphine, Vistaril, and Ativan. - Stopped Vistaril except at bedtime, stop morphine, decrease Ativan - Resolved with reduction in pain medication - Currently on Seroquel which she apparently takes at home as well per her report Severe thrombocytopenia, acute. Present on admission. Resolved - Platelets reached as low as 31, due to sepsis - Platelets currently with in normal range History of IV drug abuse. POA and Active with heroin during the week prior to arrival. - Hepatitis C negative - HIV negative History of tobacco dependence. By mouth and active - Nicotine patch ordered Disposition: Antibiotics to continue through April 04. Patient will remain in-house or transfer to [facility] [place] pending social work. GI Prophylaxis: H2 susan VTE Prophylaxis: Other (Pt has thrombocytopenia - no DVT prophylaxis for now.) VTE Mechanical Devices: Intermittant Pneumatic CD Resuscitation Status: CPR: Attempt Resuscitation Moreno Mendez MD Apr 01, 2017 09:25
--- NOTE | 2017-04-01 13:26 | PCM.DC.MED ---
Discharge Summary Date of Service Apr 01, 2017 Dates of Hospitalization Date of Hospital Admission Feb 17, 2017 at 02:44 Date of Discharge: Apr 01, 2017 Providers: Admitting Physician: Purnima Gabriel DO Primary Care Physician: Martell Attending Physician: Jayden Proctor MD Diagnosis at Time of Discharge Diagnosis at Time of Discharge # Acute MSSA endocarditis; present on admission; active. 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 Present on admission. Active. # Severe acute kidney injury. Present on admission. Resolved # Opioid dependence, poa, chronic. active # Acute blood loss anemia; present on admission; stable # Acute sepsis with septic shock. Present on admission; resolved # Left shoulder pain, acute on chronic. Present on admission. Resolving # History of seizure disorder. POA and stable. Septic Encephalopathy; not present on admission; resolved. Severe thrombocytopenia, acute. Present on admission. Resolved History of IV drug abuse. - History of tobacco dependence. Consultations ID. Dr. Lee. Cardiology- Dr. Patel Procedures XRay, CTs & MRIs . X-RAY CHEST ONE VIEW, PORTABLE IMPRESSION: Diffuse bilateral patchy air space opacities suspicious for pneumonia. Dictated by: Delon Pelayo RRA Interpreted: Jose Enrique York MD on 02/17/2017 X-RAY CHEST ONE VIEW, PORTABLE IMPRESSION: 1. Right internal jugular central venous catheter is in expected position. No pneumothorax. 2. Bilateral septic emboli as before. Dictated by: Lance Dan M.D. on 02/17/2017 CT CHEST, ABDOMEN AND PELVIS WITHOUT CONTRAST IMPRESSION: 1. Multiple bilateral cavitary lesions in the lungs consistent with recurrent septic emboli. The differential for these imaging findings includes inflammatory processes as well as metastatic disease but these are less likely given patient's prior history of septic emboli. 2. Slight asymmetric appearance of the right kidney with minimal perinephric stranding. However, evaluation for pyelonephritis is limited in the absence of intravenous contrast. Recommend correlation clinically. There is no hydronephrosis. 3. Mildly prominent bladder wall thickness likely due to incomplete distention. Recommend correlation with urinalysis. Dictated by: Sulaiman Haines M.D. on 02/17/2017 CT BRAIN WITHOUT CONTRAST IMPRESSION: 1. No acute intracranial abnormality. Dictated by: Sulaiman Haines M.D. on 02/17/2017 Cardiac Echo Impression 03/31/17- Echo- Interpretation Summary Small left ventricular cavity with ejection fraction 55-60%. Flattened septum is consistent with RV pressure/volume overload. Severely dilated right ventricle with normal systolic function. Severely dilated right atrium. There is a large vegetation (2.1x1.2 cm) on the tricuspid valve. Incomplete coaptation of the tricuspid valve leaflets. Severe tricuspid regurgitation. Comparison is made with the echocardiogram of 02/17/2017 and 07/29/2016, there is progressive volume load on the right ventricle. Echocardiogram Report Interpretation Summary Sinus tachycardia. Normal LV size and wall thickness. There is normal LV wall motion and systolic function. EF is 55-60%. There is severe RV dilation with normal wall motion. There is severe RA dilation. There is a 2.5x0.9 cm vegetation on the downstream side of the tricuspid valve leaflet. There is moderate tricuspid regurgittation. There is normal valve structure and function otherwise. Estimated PASP is 42 mm Hg assuming RA pressure of 3 mm Hg. Compared to prior study 08/04/2016 sinus tachycardia is new. RV dilation is new. Vegetation on the tricuspid valve is old. Tricuspid regurgitation is old Brief History Pt is a 26 y/o female w/ a hx of tricuspid MSSA endocarditis, ongoing IVDA ( meth and heroin), septic PE, pneumonia, presenting to the ED c/o dyspnea. The patient was last admitted to [facility] on July 15 2016 and transferred to [facility] on August 06 with diagnosis of MSSA tricuspid endocarditis, septic pulmonary emboli, septic left sternoclavicular joint, pneumonia, and severe sepsis. At that time she presented to the ED with complaints of chest pain and dyspnea. Today, she is complaining of dyspnea, fevers, chills, malaise , and altered mental status. She also reports recent diarrhea 2 weeks ago which lasted for several days, as well as left shoulder pain and a mild cough with minimal green sputum and sore throat. She denies dysuria, wheezing, chest pain, abdominal pain, vomiting, bloody stool. She continues to use IV heroin and methamphetamine, her last use was this afternoon. In the ED, temp was 37.9, HR 145, BP 86/52, O2 [address] head showed no acute intracranial process. WBC was 15.4 with 95% neutrophils, Hb 13.9, Hct 86.8, platelets were 20. Giant platelets were seen, with no schistocytes. Fibrinogen was 340. INR 1.09. Cr was 8.07. Lactic acid 2.6. LDH 622. CT chest/ abd/pelvis showed numerous peripheral nodular opacities with cavitation in bilateral lungs, suspicious for septic emboli. CXR showed right lower lobe infiltrate. Hospital Course 26 y/o female w/ a hx of tricuspid MSSA endocarditis, (meth and heroin), septic PE, pneumonia, presenting to the ED c/o dyspnea being treated for Acute MSSA endocarditis # Acute MSSA endocarditis; present on admission; active. -Sepsis and shock both resolved -White count normal, procal trended down -Daptomycin was discontinued 02/28/17, Initially tx with naficillin, then switched to Cefazolin as switched to peripheral IV when lost central access. . -03/31- ID, Dr. Lee, changed abx to final dose of Oritavancin 1200 mg x1 due to difficulty with peripheral access. - Echo repeated prior to possible discharge. 03/31/17- Echo- again shows large vegetation now size is (2.1x1.2 cm) on the tricuspid valve, progressive volume load on the right ventricle. 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 Present on admission. Active. - Echocardiogram demonstrates a tricuspid vegetation, moderate tricuspid regurg , right sided heart failure - Repeated Echo on 03/31/17- worsening TR with progressive volume load on the right ventricle. - Dr. Patel and Dr. Riddle indicated that the patient was not a candidate at the moment as required 6 weeks of antibiotics in 6 months off heroin. - Dr. Benji Dixon at [facility] has been contacted again upon discharge. Per cardiology, Dr. Patel's note on 02/21/17. Plan is for Dr. Dixon consultation as outpatient for possible tricuspid valve repair or replacement -Continue Eliquis for anticoagulation. # Severe acute kidney injury. Present on admission. Resolved - Likely secondary to sepsis and hypotension and staphyloccocal glomerulonephritis. - Nephrology consulted Dr. Patel (signed off with the patient on 02/29/2016) # Opioid dependence, poa, chronic. active - Patient was counseled that increasing her opioid dependence with inpatient opioid medications, especially parenteral, of adverse long-term consequences for her health. - Patient remains on gabapentin 600 mg twice a day; home doses 3 times a day - Counselling provided upon discharge again. # Acute blood loss anemia; present on admission; stable -2 units PRBCs ordered stat and given on 02/27/17 after acute blood loss after episode on 02/26 when disconnected her central line to go the bathroom -Hb has been stable. # Acute sepsis with septic shock. Present on admission; resolved - Pt presented with temp 37.9, HR 145, BP 86/52, WBC 15.4 with left shift, lactic of 2.6. MSSA endocarditis with secondary bacteremia with persistently positive blood cultures at 5 days; CT positive for mycotic pulmonary embolism. Bcx negative since 02/21. Procal is down trending. Was on norepinephrine initially. - See above regarding abx and plan. # Left shoulder pain, acute on chronic. Present on admission. Resolving - Pt has history of septic joint of the left sternoclavicular joint; has been seen by orthopedics during the stay - Aspirate cell count, Gram stain, culture ordered 02/22/17 - Physical therapy evaluated. No further recs. # History of seizure disorder. POA and stable. -Patient states she is not on Lamictal at home - discontinued Lamictal 03/09/17 -Continuing topiramate, at 100 mg twice a day Septic Encephalopathy; not present on admission; resolved. Patient had hallucinations, got out of bed and stooled on the floor. Likely related to either sepsis or combination of medications including morphine, Vistaril, and Ativan. - Stopped Vistaril except at bedtime, stop morphine, decrease Ativan - Resolved with reduction in pain medication - Currently on Seroquel which she apparently takes at home as well per her report Severe thrombocytopenia, acute. Present on admission. Resolved - Platelets reached as low as 31, due to sepsis - Platelets currently with in normal range History of IV drug abuse. POA and Active with heroin during the week prior to arrival. - Hepatitis C negative - HIV negative History of tobacco dependence. By mouth and active - Nicotine patch ordered Disposition: discharge home. Completed treatment course for endocarditis. Follow up with Cardiothoracic Surgeon Dr. Benji Dixon at [facility]. Contact number . Follow up with your primary doctor in 1 week. In order to be candidate for surgery will need to continue abstinence from IV drug use. Continue Eliquis for anticoagulation Discontinued Lamictal Continuing topiramate at 100 mg twice a day Have completed antibiotic course. Exam Vital Signs (Last) Date Time Temp Pulse Resp B/P Pulse Ox O2 Delivery O2 Flow Rate FiO2 04/01/17 10:29 Supplement Oxygen 04/01/17 05:38 36.1 60 18 106/73 97 Test 02/17/17 00:12 02/17/17 01:18 02/17/17 03:00 02/17/17 03:40 Nucleated Red Blood Cells 1/100 WBC (0-24) Blood Smear Pathologist Review Troponin T 0.014ug/L (0.0-0.011) Prothrombin Time 11.7sec (8.1-12.5) Prothromb Time International Ratio 1.09ratio Activated Partial Thromboplast Time 32.9sec (22.8-33.0) Fibrinogen 340mg/dL (157-380) [id number] Activity 40.8 [id number] Activity Interpretation Comment Reticulocyte Count,Calculated 0.6% (0.6-2.6) Anti-Platelet Glycoprotein IIb/IIIa Negative (Negative) Anti-Platelet Glycoprotein Ia/IIA Negative (Negative) Anti-Platelet Glycoprotein Ib/IX Negative (Negative) HLA Antibody Specificity Class I Positive (Negative) HIV (1&2) Ag and Ab, 4th Generation Non reactive (Non Reactive) Chlamydia trachomatis DNA (NASRIN) Negative (Negative) Urine Legionella pneumophilia Ag Negative (Negative) Neisseria gonorrhoeae DNA (NASRIN) Negative (Negative) Test 02/17/17 05:00 02/17/17 07:20 02/17/17 14:15 02/18/17 12:15 Metamyelocytes % 1% (0-0) Erythrocyte Sedimentation Rate 9mm/hr (0-32) Hepatitis C Antibody <0.1s/co ratio (0.0-0.9) Anti-Nuclear Antibody Screen Negative (Negative) Myeloperoxidase <9.0U/mL (0.0-9.0) Cytoplasmic ANCA (c-ANCA) Antibody <1:20titer (Neg:<1:20) Proteinase 3 (PR3) Antibodies <3.5U/mL (0.0-3.5) Atypical p-ANCA <1:20titer (Neg:<1:20) Perinuclear ANCA (p-ANCA) Antibody <1:20titer (Neg:<1:20) Anti-Glomerular Basement Memb Ab 4units (0-20) Test 02/22/17 05:00 02/23/17 04:10 02/24/17 02:55 02/27/17 02:45 Lactic Acid Level 1.1mmol/L (0.4-2.0) Band Neutrophils % 2% (1-5) Total Creatine Kinase 813U/L (21-215) Iron Level 12ug/dL (35-150) Total Iron Binding Capacity 110ug/dL (250-450) Percent Iron Saturation 11%sat (15-50) Unsaturated Iron Binding 97.8ug/dL Test 02/27/17 13:20 02/28/17 04:15 02/28/17 13:24 02/28/17 14:00 Haptoglobin 203mg/dL (34-200) Lactate Dehydrogenase 390U/L (100-190) Ferritin 659ng/mL (13-150) Hold Ross Top Tube Received (Received) Complement C3 102mg/dL (82-167) Complement C4 15mg/dL (14-44) Test 03/01/17 17:40 03/02/17 03:50 03/06/17 05:00 03/10/17 04:27 Urine Color Straw (YELLOW) Urine Appearance Clear (CLEAR,HAZY) Urine pH 5.0 (5.0-8.0) Urine Specific Jewell <1.005 (1.003-1.035) Urine Protein Negativemg/dL (NEG,TRACE) Urine Glucose (UA) Negativemg/dL (NEGATIVE) Urine Ketones Negativemg/dL (NEGATIVE) Urine Occult Blood Large (NEGATIVE) Urine Nitrite Negative (NEGATIVE) Urine Bilirubin Negative (NEGATIVE) Urine Urobilinogen Normalmg/dL (NORMAL) Urine Leukocyte Esterase Negative (NEGATIVE) Urine RBC 11-50/hpf (0-2) Urine WBC 0-5/hpf (0-5) Urine Epithelial Cells Few/hpf (NONE-MOD) Urine Crystals None seen (NONE SEEN) Urine Bacteria None/hpf (NONE-FEW) Urine Hyaline Casts None/lpf (NONE) Urine Granular Casts None seen (NONE SEEN) Urine Waxy Casts None seen (NONE SEEN) Urine Red Blood Cell Casts None seen (NONE SEEN) Urine White Blood Cell Casts None seen (NONE SEEN) Urine Mucus None seen (None Seen) Urine Trichomonas None seen (NONE SEEN) Urine Yeast None (NONE SEEN) Urinalysis Comment None Urine Culture Reflexed Not indicated Phosphorus Level 4.8mg/dL (2.5-4.9) Hematology Comments Procalcitonin 0.17ng/mL (0.00-0.08) Test 03/16/17 06:16 03/20/17 05:38 03/26/17 09:41 03/29/17 05:15 Hold Purple Top Tube Received (Received) Magnesium Level 1.8mg/dL (1.6-2.6) Hold [place] Top Tube Received (Received) Total Bilirubin 0.3mg/dL (0.0-1.2) Aspartate Amino Transf (AST/SGOT) 10U/L (0-50) Alanine Aminotransferase (ALT/SGPT) 5U/L (0-32) Alkaline Phosphatase 49U/L (25-150) Total Protein 8.6g/dL (6.4-8.4) Albumin 3.4g/dL (3.4-5.0) White Blood Count 9.8th/mm3 (3.8-10.1) Red Blood Count 3.21mil/mm3 (3.90-5.20) Hemoglobin 10.1g/dL (12.0-15.6) Hematocrit 30.4% (35.0-46.0) Mean Corpuscular Volume 94.7fL (81-100) Mean Corpuscular Hemoglobin 31.5pg (27.0-35.0) Mean Corpuscular Hemoglobin Concent 33.2% (32.0-37.0) Red Cell Distribution Width 16.8% (12.3-15.4) Platelet Count 309bil/L (150-400) Neutrophils (%) (Auto) 55.2% (40-74) Lymphocytes (%) (Auto) 37.5% (14-46) Monocytes (%) (Auto) 5.0% (4-12) Eosinophils (%) (Auto) 1.3% (0-5) Basophils (%) (Auto) 0.4% (0-3) Sodium Level 136mEq/L (134-144) Potassium Level 4.3mEq/L (3.5-5.2) Chloride Level 103mEq/L (97-108) Carbon Dioxide Level 16mmol/L (18-29) Blood Urea Nitrogen 23mg/dL (6-20) Creatinine 0.93mg/dL (0.57-1.00) Estimat Glomerular Filtration Rate 106mL/min (>59) Glucose Level 100mg/dL (60-99) Calcium Level 9.3mg/dL (8.5-10.1) Discharge Medications Discharge Medications Apixaban (Eliquis) 5 Mg Tablet 5 MG PO BID Prescribed by: JAYDEN PROCTOR MD Gabapentin (Neurontin) 300 Mg Capsule 600 MG PO BID Prescribed by: JAYDEN PROCTOR MD Hydroxyzine Pamoate (HydrOXYzine Pamoate) 25 Mg Capsule 50 MG PO HS Prescribed by: JAYDEN PROCTOR MD Quetiapine Fumarate (Quetiapine Fumarate) 25 Mg Tablet 25 MG PO HS Prescribed by: JAYDEN PROCTOR MD Ropinirole (Ropinirole) 1 Mg Tablet 1 MG PO HS (Reported) Topiramate (Topiramate) 100 Mg Tablet 100 MG PO BID (Reported) As needed Lorazepam (Ativan) 1 Mg Tablet 1 MG PO Q4H PRN PRN anxiety Prescribed by: JAYDEN PROCTOR MD oxyCODONE (oxyCODONE) 5 Mg Tablet 5 MG PO Q6H PRN PRN For Moderate Pain Prescribed by: JAYDEN PROCTOR MD Additional med instructions Continue Eliquis for anticoagulation Discontinued Lamictal, Continuing topiramate at 100 mg twice a day Have completed antibiotic course. See full discharge med list for all changes. Followup Plan Disposition: Home Follow-up plan Follow up with Cardiothoracic Surgeon Dr. Benji Dixon at [facility]. Contact number . Follow up with your primary doctor in 1 week. Discharge Diet: No restrictions Follow-up Provider: Karla Cruz MD Follow-up with PCP in: 1 week Provider: Benji Dixon MD Follow-up in: 2 weeks Time spent Greater than 30 minutes was spent in preparation of discharge with greater than 50% of that time dedicated to patient counseling and coordination of care. copies to: Karla Cruz MD, Navdeep MD Apr 01, 2017 13:26
[2017-04-01] MEDS ORDERED: APIX5TAB PO (13:32)
[2017-04-01] MEDS ORDERED: OXYC-530 PO (13:32)
[2017-04-01] MEDS ORDERED: GABA300C PO (13:32)
[2017-04-01] MEDS ORDERED: HYDR-3797 PO (13:32)
[2017-04-01] MEDS ORDERED: QUET25TA73 PO (13:32)
[2017-04-01] MEDS ORDERED: LORA-303 PO (13:32)
--- NOTE | 2017-04-01 13:33 | PROG NOTE ---
[address] [address] PROGRESS NOTE PATIENT: RAJANI ALSTON : 1990 MR#: [id number] ADMIT: 02/17/2017 JOB ID: [id number] DATE: 04/01/2017 INFECTIOUS DISEASE FOLLOWUP NOTE: REASON FOR FOLLOWUP: End of therapy endocarditis. INTERVAL HISTORY: Overnight the patient had a 38.0 temperature; that is her only temperature of 38 or greater in the past month basically. This was associated with many problems with IVs which have plagued this patient over the past few days. This morning she has no fevers, chills, or sweats. No cough, nausea, vomiting, or diarrhea. She is anxious to go home. She does note pain at the site of her left forearm IV that was pulled a couple of days ago as well as pain at the site of her left foot IV that was pulled a couple days ago as well. She currently has an IV which has functioned in the right arm. PHYSICAL EXAMINATION: Reveals an afebrile young woman, no acute distress. Temp 36.1, pulse 60, respiratory rate 18, blood pressure 106/73. She is saturating well on room air and looks fine. Oral cavity negative. Lungs clear. Cardiac tone without murmur. Abdomen soft, nontender. She does have tender areas of phlebitis in her left forearm as well as her dorsal left foot at the site of her two most recent IVs prior to the functioning IV she has in her right forearm. Recall that yesterday we concluded her therapy about four days early of the six weeks scheduled goal to give her a single dose of oritavancin in preparation for discharge given the fact we simply could not keep IVs in her whether peripheral or central. LABORATORY STUDIES: Include a creatinine of 0.93; that was three days ago. No recent labs are available. Most recent cultures are all negative. The patient's end of therapy echo was done yesterday and has been interpreted. It shows that she has a small left ventricle with good ejection fraction but she has a very dilated right ventricle and right atrium. She still has a 2.1 x 1.2 cm vegetation on the tricuspid valve and there is incomplete coaptation of the tricuspid valve leaflets. Severe TR is also noted and it seems to be getting worse as compared to prior studies. IMPRESSION: This young woman has finished her six weeks of therapy for MSSA, recurrent tricuspid valve endocarditis. I think her low-grade fever of yesterday afternoon, which was just barely a fever at 38.0, was due to the probably sterile phlebitis in her old IV sites. In any event she has a dose dalbavancin on board which should be adequate for any superficial infection of those IV sites and I see no reason to delay her discharge today. Aside from the good news that she can be sent home today without any additional antibiotics, she still is left with a large residual vegetation on the tricuspid valve and relatively poor function of that regurgitant valve. As was discussed earlier in her hospital stay, she should return to the [facility] surgery center which was contacted when we first admitted her. This appointment should be in a few weeks, as they did not wish to see her until there was a prolonged period of drug free living. She is not currently in heart failure. There is no reason for emergent CT surgery evaluation, but in the coming weeks and months she should definitely be seen by CT surgery to see if a valve replacement or a ring would be helpful in terms of her hemodynamics. RECOMMENDATIONS: 1. The patient is cleared to be discharged today. 2. No additional antibiotics are needed. 3. No additional followup with me unless she gets fevers or chills. 4. I told her frankly that if she gets endocarditis again from IV drug use it is almost certain she will from that infection and strongly recommended she continue with her abstinence program. 5. The patient should follow up with CT surgery within the next six months, and perhaps several weeks would be a reasonable time for her to make contact. She should be provided with the numbers for the center which was contacted earlier in her hospital stay. 6. Infectious Disease will sign off again today. Thank you very much. Note that this case discussed in person with the hospitalist.
--- NOTE | 2017-04-01 13:36 | PCM.DIMED ---
Discharge Instructions Date of Service Apr 01, 2017 Dates of Hospitalization Feb 17, 2017 at 02:44 Discharge Diagnosis Discharge Diagnosis # Acute MSSA endocarditis; present on admission; active. 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 Present on admission. Active. # Severe acute kidney injury. Present on admission. Resolved # Opioid dependence, poa, chronic. active # Acute blood loss anemia; present on admission; stable # Acute sepsis with septic shock. Present on admission; resolved # Left shoulder pain, acute on chronic. Present on admission. Resolving # History of seizure disorder. POA and stable. Septic Encephalopathy; not present on admission; resolved. Severe thrombocytopenia, acute. Present on admission. Resolved History of IV drug abuse. - History of tobacco dependence. Medication Instructions Additional med instructions Continue Eliquis for anticoagulation Discontinued Lamictal, Continuing topiramate at 100 mg twice a day Have completed antibiotic course. See full discharge med list for all changes. Diet Discharge Diet: No restrictions Patient Instructions Follow-up plan Follow up with Cardiothoracic Surgeon Dr. Benji Dixon at [facility]. Contact number to make an appointment. We made an appointment with your new primary doctor, Dr. Cruz on TuesdayApril 04 at 10:30am. Contact information in chart. Follow-up Provider: Karla Cruz MD Follow-up with PCP in: 1 week Provider: Benji Dixon MD Follow-up in: 2 weeks Moreno Mendez MD Apr 01, 2017 13:36
[2017-04-01 14:43] VITALS: BP 108/66; PULSE 110; RESP 16; O2SAT 99
--- NOTE | 2017-04-01 15:31 | NUR ---
Discharge Planning Note: D&A: Received verbal referral from requesting assistance with setting up outpatient medical appointment for this patient that has no PCP. first requesting CARD LACER call Dr. Awan (Pt.'s previous PCP) to see if he will accept her back. reports this is pt.'s preference. Placed call to office and Dee reports that pt. was dismissed from practice within the last year. They are unable to see this patient. Notified MD and met with pt. explained CARD LACER role. Pt. aware that previous PCP will not be able to see her. Pt. familiar with [facility] and requests that CARD LACER attempt to make new patient appointment there. Placed call to [facility] and spoke with Dee. Appointment made for this patient for March 04 @10:30AM with Dr. Cruz. notified. RN faxed discharge summary to [facility] for continued medical care purposes. P: Home today. New PCP appointment made at [facility]. See above for details. BINA Damon
[2017-04-01] MEDS ORDERED: TOPI-31 PO (16:49)
--- NOTE | 2017-04-01 17:06 | NUR ---
discharge paperwork reviewed, no questions at this time. RX's reviewed and IV removed. pt waiting for a ride in a private car with mother to return to private home. pt denies CP/SOB/distress. pt refuses a W/C ride to transportation.
[2017-04-03] MEDS ORDERED: LOV60 SUBQ (16:20)
[2017-04-03] MEDS ORDERED: WARF5TAB PO (16:21)
== END 2017-04-01 17:06 | disposition home or self-care (01) | DRG 871 ==
LOC: SED 23:34 → CCU 02-17 02:44 → PCC 02-25 18:50 → MPC 03-02 03:01
PROVIDERS: ADMIT Internal Medicine; ATTEND Internal Medicine
PROC: 4A033R1 Measurement of Arterial Saturation, Peripheral, Percutaneous Approach (ICD-10-PCS; principal; 2017-02-17)
PROC: 30233R1 Transfusion of Nonautologous Platelets into Peripheral Vein, Percutaneous Approach (ICD-10-PCS; 2017-02-17)
PROC: 05HM33Z Insertion of Infusion Device into Right Internal Jugular Vein, Percutaneous Approach (ICD-10-PCS; 2017-02-17)
PROC: 0R9K3ZX Drainage of Left Shoulder Joint, Percutaneous Approach, Diagnostic (ICD-10-PCS; 2017-02-22)
PROC: 02HV33Z Insertion of Infusion Device into Superior Vena Cava, Percutaneous Approach (ICD-10-PCS; 2017-02-26)
PROC: 30233N1 Transfusion of Nonautologous Red Blood Cells into Peripheral Vein, Percutaneous Approach (ICD-10-PCS; 2017-02-27)
DX: A41.01 Sepsis due to Methicillin susceptible Staphylococcus aureus (principal); I26.90 Septic pulmonary embolism without acute cor pulmonale; I33.0 Acute and subacute infective endocarditis; N17.0 Acute kidney failure with tubular necrosis; R65.21 Severe sepsis with septic shock; G93.41 Metabolic encephalopathy; E87.2 Acidosis; E87.1 Hypo-osmolality and hyponatremia; F11.20 Opioid dependence, uncomplicated; D69.6 Thrombocytopenia, unspecified; M25.512 Pain in left shoulder; F15.10 Other stimulant abuse, uncomplicated; G40.909 Epilepsy, unspecified, not intractable, without status epilepticus; B86 Scabies; E86.0 Dehydration; B95.4 Other streptococcus as the cause of diseases classified elsewhere; I50.9 Heart failure, unspecified; J98.8 Other specified respiratory disorders; B97.29 Other coronavirus as the cause of diseases classified elsewhere; R19.7 Diarrhea, unspecified; E87.6 Hypokalemia; N08 Glomerular disorders in diseases classified elsewhere

== ENCOUNTER 2017-04-06 22:52 | Inpatient (IN) | payer OTHER ==
[~2017-04-06] VITALS: Ht 160 cm; Wt 76.9 kg
[~2017-04-06 22:52] MED LIST changes: +APIX5TAB PO; -CLON0.3T PO; +HYDR-3797 PO; -HYDR-656 PO; -LAMO200T2 PO; +LORA-303 PO; +LOV60 SUBQ; -NITR100 PO; -ONDA-53 PO; +OXYC-530 PO; +QUET25TA73 PO; +TOPI-31 PO; +WARF5TAB PO
[2017-04-07] VITALS (16 sets, daily range): BP systolic 81–118; BP diastolic 55–79; PULSE 24–143; RESP 16–24; O2SAT 93–100
[2017-04-07] MEDS ORDERED: 0.9% Sodium Chloride 1,000 ML IV SCH (01:11)
[2017-04-07] MEDS ORDERED: Polyethylene Glycol (PEG) 17 Gm Powder PO PRN (01:15)
[2017-04-07] MEDS ORDERED: Alum-Mag Hydrox-Simeth 30 mL Suspension PO PRN (01:15)
--- NOTE | 2017-04-07 02:04 | NUR ---
[place] [facility] [place] 0045. Transported to bed from [facility] independently. A/Ox4, lethargic. Standing wt obtained, belongings logged, oriented to nicotine policy, TV, food services, visiting hours, and patient rights. T 35.7, all other VSS. Faculty Dean unable to draw labs x2 attempts, pt refusing draws in the feet. Agreeable to letting next obstetrics/gynecology nurse try at 0600. Pt has not produced urine, CXR pending negative urine HCG.
[2017-04-07] MEDS: Heparin 5,000 Unit/mL Inj SUBQ SCH ×3 (02:33→09:42)
[2017-04-07] MEDS: LORazepam 1 mg Tablet PO PRN ×2 (02:33→20:48)
--- NOTE | 2017-04-07 02:44 | PCM.HPMED ---
Subjective Date of Service Apr 07, 2017 Primary Provider: Admitting Physician: Rick Catalan MD Primary Care Physician: Taco Flores MD Attending Physician: Rick Catalan MD Chief Complaint: Fever and weakness History of Present Illness: Darlene Miller is a 26-year-old female with past medical history significant for IV heroin and meth use causing MSSA tricuspid valve endocarditis with septic pulmonary emboli with recent completion of 6 weeks of antibiotic treatment who presented to [facility] with fever and generalized malaise. Patient was recently hospitalized from 02/17/2017 - 04/01/2017 for treatment of endocarditis. The day of discharge she received 1 dose of Dalbavancin. Since discharge patient had been feeling well until the last 36 hours. She states that over the last 36 hours she has felt progressively weak and achy. She said some difficulty with urination but no dysuria or hematuria. She noted feeling feverish and chilled early this afternoon and began having difficulty walking due to significant weakness. At this time she called her sister who brought her to [facility]. Patient denies IV drug use since discharge. She states she has been compliant with her medications. She denies any sick contacts. She does note that she has stayed fairly active and maybe has not gotten enough rest after her prolonged hospitalization. She denies shortness of breath, chest pain, abdominal pain, nausea, vomiting, headache, rashes, diarrhea, or decreased appetite. On presentation to [facility] initial vitals were temperature 38.9 , blood pressure 90/59, heart rate of 115, respiratory rate 22 satting 92% on room air. Initial labs done at [facility] showed a creatinine of 1.37, BUN of 20, white blood cell count of 19.9 with 78% neutrophils, lactic acid of 2.3. Urinalysis showed leukocyte esterase along with 10-14 white blood cells. Blood cultures 2 were drawn. Urine drug screen was positive for benzodiazepine alone and the patient takes lorazepam when necessary. There was concern that the patient was appearing septic and subsequently was transferred. Prior to transfer she received 1 L NS along with a dose of ceftriaxone. Upon arrival at [facility] patient's vitals were temperature 36.8, pulse 84, respiratory rate 18 satting 98% on room air, and blood pressure 99/66. Repeat labs were attempted to be drawn but the hospice superintendent was unsuccessful and patient refuses additional attempts until shift change when there is a new hospice superintendent. Patient at this time appears stable. Review of Systems: Comprehensive review of systems was conducted with the patient and found to be negative except as noted above in HPI. Allergies Coded Allergies: sulfamethoxazole (Verified Allergy, Intermediate, 02/17/17) serum sickness with arthritis trimethoprim (Verified Allergy, Intermediate, 02/17/17) serum sickness with arthritis Home Medications Topiramate 100 mg twice a day. 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 HEENT: Normocephalic, atraumatic. External ears without defect. Pupils equal, round, and reactive to light and accommodation. Right eyelid with slight erythema but no pain to palpation around orbit. Oropharynx free of erythema and cobble stoning with moist mucosa. Neck: Supple with full range of motion. No lymphadenopathy or thyromegaly. Cardiovascular: Regular rate and rhythm with a 2/6 systolic murmur. Pulmonary: Decreased breath sounds in the right lower quadrant otherwise clear to auscultation bilaterally. Normal respiratory effort with no use of accessory muscles. Abdomen: Bowel tones present. Soft, nontender, nondistended. No hepatosplenomegaly or masses appreciated. Extremities: No clubbing, cyanosis, edema, or lymphadenopathy appreciated. Skin: Normal temperature, turgor, and texture; no rash, ulcers, or subcutaneous nodules appreciated. Neurological: Cranial nerves grossly intact. Normal muscle strength, tone, and bulk. Reflexes, coordination, and sensory function within normal limits. No known gait impairment. Psychiatric: Normal mood and affect. Alert and oriented to person, place, and time. Lab and Diagnostics Labs Initial labs at [facility] significant for the following: Currently 1.37 BUN 20 WBC 19.9 with 78% neutrophils Lactic acid 2.3 Urinalysis positive for leukocyte esterase and 10-14 WBC Repeat labs unable to be drawn and patient refuses until next hospice superintendent comes on shift. Microbiology Blood cultures 2 drawn at [facility] on 04/06/2017. Repeat blood cultures attempted to be drawn at our facility but unable. We will retry in the morning. Assessment & Plan Darlene Miller is a 26-year-old female with past medical history significant for IV heroin and meth use causing MSSA tricuspid valve endocarditis with septic pulmonary emboli with recent completion of 6 weeks of antibiotic treatment on who presented to [facility] with fever and generalized malaise found to have a UTI and concern for possible sepsis. Patient was transferred here for management and upon arrival appears hemodynamically stable and with no current signs of sepsis. Urinary tract infection, present on admission, active. - Patient transferred from [facility] due to concern that the patient may become septic. Currently stable. No abdominal/pelvic imaging completed to evaluate for pyelonephritis or presence of hydronephrosis. PE not compelling to obtain at this time but low threshold to order imaging. - Review of past hospitalizations reveals urine cultures positive for Enterococcus faecalis and MSSA which were both pansensitive. - UA done at [facility] showed leukocyte esterase along with 10-14 white blood cells. - WBC of 19.9 with 78% neutrophils. - 1 dose of ceftriaxone given at [facility]. Will continue with the addition of Vancomycin until cultures and sensitivities return. - Repeat UA with culture pending. Acute kidney injury, present on admission, active. - Last creatinine on 03/29/2017 was 0.93. At [facility] was found to be 1.37. - 1 L fluid bolus given a [facility]. NS continued at 150 mL per hour. - Avoid nephrotoxic medications. - Repeat CMP in the morning. Hyperlactatemia, present on admission, active. - Minimally elevated lactic acid 2.3 at [facility]. - Repeat lactic acid pending. - Fluids as above. Fever and malaise, present on admission, active. - Fever at [facility] 38.9. Afebrile since arrival at [facility]. - Resp PCR panel pending. Recent MSSA tricuspid valve endocarditis with septic pulmonary emboli with 6 weeks of antibiotic treatment completed on 04/01/2017. - Unclear whether patient has been taking apixaban, lovenox, or warfarin. Poor historian and likely that she has been taking nothing. Awaiting PT/INR. - Patient received 1 dose of Dalbavancin on 04/01/2017. - Patient was to schedule appointment with Cardiothoracic Surgeon Dr. Benji Dixon at [facility] to discuss possible valve replacement. Chronic stable conditions Polysubstance abuse - Patient denies IV drug since discharge on 04/01/2017. - Urine drug screen at [facility] was positive for benzodiazepines. - Hepatitis C and HIV negative at last admission. Opioid dependence - Suboxone 16 mg daily. Depression and anxiety - Quetiapine 25 mg nightly Seizure disorder - Continue home topiramate 100 mg twice a day History of recurrent soft tissue infections - No physical exam findings to suggest current infection. Asthma - Albuterol when necessary. Insomnia - Continue ropinirole 1 mg nightly. Chronic pain - Gabapentin 600 mg twice a day PRN Medications - Acetaminophen as needed for mild pain/fever/headache - Bowel regimen as needed - Antiemetic as needed Patient is admitted under inpatient status with expected length of stay greater than 2 midnights due to severity of presenting symptoms, risk of adverse event, and complexity of treatment plan. Pain Evaluation: Adequate Pain Control GI Prophylaxis: Not indicated VTE Prophylaxis: Sub-Q Enoxaparin Resuscitation Status: CPR: Attempt Resuscitation Attending Statement The patient was seen and examined together with Dr. Palacios on 04/07 and I agree with the history, exam and plan as outlined in the note above. MATTHEW PALACIOS DO Apr 07, 2017 02:44 Rick Catalan MD Apr 07, 2017 06:41
[2017-04-07] MEDS: cefTRIAXone Inj 2,000 MG in Dextrose 5% Minibag Plus 50 ML IV SCH (03:29)
[2017-04-07] MEDS ORDERED: 0.9% Sodium Chloride 500 ML IV ONE (03:50)
[2017-04-07] MEDS ORDERED: Vancomycin Dose per Pharmacist XX SCH (05:05)
--- NOTE | 2017-04-07 05:21 | NUR ---
Systolic 80's, P 100's, Dr. Ivan notified, continuing to check BP frequently and will update her for worsening sx/ MAP less than 65.
[2017-04-07 08:37] LABS: BASOPHILS % (AUTO) 0.3 % (0-3); EOSINOPHILS % (AUTO) 2.2 % (0-5); MONOCYTES % (AUTO) 6.5 % (4-12); Mean Corpuscular Hemoglobin 31.5 pg (27.0-35.0); Mean Corpuscular Volume 96.6 fL (81-100); Platelet Count 157 bil/L (150-400)
[2017-04-07 08:50] LABS: INR 1.17 ratio
--- NOTE | 2017-04-07 08:50 | CONS ---
[address] [address] CONSULTATION REPORT PATIENT: RAJANI ALTSON : 1990 MR#: [id number] ADMIT: 04/07/2017 JOB ID: [id number] DATE OF SERVICE: 04/07/2017 INFECTIOUS DISEASE CONSULTATION: REASON FOR CONSULTATION: Possible sepsis in a patient with recurrent endocarditis. I thank Dr. Ivan for this timely consult. HISTORY OF THE PRESENT ILLNESS: The patient is an incredibly complicated 26-year-old woman well known to me from numerous prior admissions including one that ended just last week. The patient has had two episodes of tricuspid valve endocarditis with septic pulmonary emboli in the past nine months. Back in June 2016, the patient was critically ill with tricuspid valve endocarditis and septic pulmonary emboli due to MSSA. This was treated and the patient did well and was discharged. She was an abstinence program for three months and did not use any intravenous drugs. She then relapsed and was admitted to this facility again around the 15 of February with endocarditis due to MSSA. Her echo showed that she had a large vegetation, as well as worsening right heart dysfunction. She was aggressively treated with antibiotics for just over five weeks. At the end of her almost six weeks of IV therapy for the MSSA endocarditis and septic pulmonary emboli, we completely ran out of IV access options, and we gave the patient a single dose of dalbavancin on approximately the 38th day of a scheduled 42 days of therapy for MSSA endocarditis. That was done last week and the patient left the hospital only about six days ago in excellent condition. She was somewhat deconditioned, as she had not been walking or exercising regularly here in the hospital but she ambulated out under her own power and looked reasonably well and was afebrile. The patient reports she did fine for about four or five days following discharge until yesterday when she developed the abrupt onset of fevers, chills, dysuria, urgency and malaise. She reported that by yesterday evening she was so weak she could hardly walk and she was beginning to develop breathlessness with exertion. Because of concerns about these many sudden onset complaints the patient went to [facility], where she was evaluated and found to be possibly septic with a high white count of about 20,000, systolic blood pressure only 90 and generalized weakness. Blood cultures were done at [facility] 12 days ago and urine was collected that showed pyuria, and her white count, as mentioned, was approximately 20,000. Because of concerns about recurrent sepsis and/or recrudescent endocarditis she was transferred to this facility during the middle of the night. After transfer here, the phlebotomists were unable to get any blood, and we have really no labs here and are forced to rely on the ones [facility]. This morning the patient tells me she is mainly sleep deprived because people have been bothering her all night long. She states she is exhausted from loss of sleep rather than anything else. She notes that her fevers and chills seem to be already gone and she is wondering if she can be discharged within the next few hours, as she has a court date tomorrow morning she cannot miss. She specifically denies any shortness of breath, chest pain, fever, chills, cough, nausea, vomiting, or diarrhea this morning. She has not yet urinated and is not aware if her diarrhea persists. She notes she is feeling a bit stronger than yesterday. PAST MEDICAL HISTORY: 1. Longstanding IV drug use with methamphetamine and heroin. 2. Tricuspid valve endocarditis with septic pulmonary emboli in June 2016, and February 2017. 3. History of gonorrhea. 4. Seizure disorder. 5. Recurrent skin and soft tissue infections due to IV drug use. SOCIAL HISTORY: The patient is a cigarette smoker. She was a frequent injector of methamphetamine and heroin until around February 15 when she was admitted here with endocarditis. She states that in the week or so she has been out of the hospital since her discharge last week that she has not used any illicit drugs and has been using Suboxone as part of a maintenance program. She is unemployed and living with her mom. She has a 2-1/2-year-old daughter who is being raised by her mother. FAMILY HISTORY: Negative for TB in first and second-degree relatives. REVIEW OF SYSTEMS: Patient has no headache this morning. She denies visual disturbance. Denies stiff neck. Her fevers and chills of yesterday seem improved. No cough, though she is short of breath with sustained exertion which she attributes to deconditioning. No chest pain. No nausea, vomiting, or diarrhea. She does have dysuria and yesterday had urgency. She has had profound weakness and prickling in her legs which started suddenly yesterday around noontime and she thinks is already dissipating. No skin rash. Remainder of the review of systems negative. PHYSICAL EXAMINATION: Reveals a young woman in no distress this morning. She looks sleep-deprived. Her temperature is 37.3, and she has been afebrile since her readmission. Her pulse 98, blood pressure 92/60. Note that when she first arrived her blood pressure was as low as 84/55. No O2 sats are recorded. The patient is awake and alert, and normal mental status. Head without trauma. Eyes without conjunctivitis or scleral icterus. Oral cavity is negative. No pharyngitis noted. Neck: Supple. Lungs: Clear. Cardiac tones: Regular rate and rhythm without murmur. Abdomen soft and nontender. No flank tenderness is appreciated. No skin rash is noted. There is no obvious muscular or synovial abnormalities. Neurologically, she is intact. Peripheral pulses are good. LABORATORIES: Include white count not available here because we have not been able to draw blood during her 12 hours or so here. White count at [facility] though was 19,000 with left shift. Other labs from the [facility] done last night include pending blood and urine cultures that are both 12 hours old, so there are no results. Urine tox screen was done which was only positive for benzodiazepines, which she has a prescription for. Urinalysis had 10-14 white cells, 21-30 red cells. Her creatinine was 1.37, which is up a bit from her baseline. Her BUN was 20, suggesting some dehydration. LFT were normal. Lactate was 2.3, which is just above the upper limit of normal at 2.2. White count was 19,900, as I mentioned. Platelets normal at 257. IMPRESSION: This is a complicated case of a young woman who has been admitted twice in the last nine months with methicillin-sensitive Staphylococcus aureus tricuspid valve endocarditis and septic pulmonary emboli. She was discharged from this hospital on the , six days ago, after receiving a dose of dalbavancin, which we were using instead of her last four days of IV beta lactam therapy. The patient is undoubtedly still with excellent levels of dalbavancin in her blood and tissue, so I find it hard to believe that the events of yesterday are related to any gram-positive process. More likely, this is just a straightforward urinary tract infection, as she did develop dysuria, fever and chills very abruptly. The confusing part of the case here would be why she got so ill so quickly. The patient's white count jumped from normal at the time of her discharge last week to 20,000 in just a matter of days, and she developed a mild lactic acidosis. I suspect her urinary tract infection issues were amplified by the fact she was so deconditioned after seven weeks or so in the hospital with endocarditis culminated in her discharge April 01. She also has underlying severe right heart dysfunction, as was evidenced in her discharge echo of last week. That echocardiogram showed a severely dilated right ventricle, as well as a 2.1 x 1.2 residual vegetation on the tricuspid valve. The plan was for her to seek CT surgery followup in the weeks or months to come as she refrains from using IV drugs. RECOMMENDATIONS: 1. For now, the patient is receiving ceftriaxone and I have no quarrel with that as long as she has IV access. Should she lose IV access I would switch to oral ciprofloxacin as an oral agent, which would likely cover gram-negative rods in the urine or blood. 2. We await the blood and urine cultures at [facility]. These results can easily be obtained by calling [facility] on a daily basis. 3. Though the patient strongly desires to be discharged to go to her court date tomorrow morning I think this needs to be postponed and the patient should be provided with some kind note or letter asking her court date to be changed because she is a hospital inpatient. Ordinarily, I would say she could be discharged on oral Cipro to cover a probable UTI but her high white count and elevated lactic acid raise questions about how ill she was yesterday and the possible need to identify an organism and be certain what we are doing before discharging her. 4. She should still keep her followup with CT surgery in the next few months. 5. I will be out of town the next three days but can be reached by telephone or text about this or any other patient. Thank you very much.
[2017-04-07 09:32] LABS: Magnesium 1.8 mg/dL (1.6-2.6); Phosphorus 4.7 mg/dL (2.5-4.9)
[2017-04-07] MEDS: Buprenorphine 2 mg SL Tablet SL SCH (10:21)
--- NOTE | 2017-04-07 10:41 | NUR ---
test Negative Pt urine dipstick test negative for . Will call Xray.
--- NOTE | 2017-04-07 13:36 | NUR ---
Social Work: Initial Assessment/Multidisciplinary Rounds D: Per EMR review, pt is a 26 year old female admitted for sepsis. Patient is [facility] with [facility]; pt has no LTC or VA benefits. [facility] NOK is Lidya Miller, mother, . Advanced directives not completed- pt declined information. Readmit score not entered at this time. Pt is a readmit and was discharged on 04/04 to her mother's. Pt discussed in Multidisciplinary rounds. Pt has a history of IV substance use. During her last admission patient was offered CD resources through [employer] which the patient did not utilize. CIT[employer]EN PARTIC[employer]IST met with the patient at bedside. Social work/dcp role explained, contact information and discharge planning checklist provided. See initial assessment. The patient confirms she was staying with her mom. She reports that that she has not been using since her discharge. Patient states that she is currently receiving Suboxone through [facility]. CIT[employer]EN PARTICIPATION SPECIALIST provided her with outpatient CD resources. She is contemplating whether she wants to get connected with an outpatient counselor but declined outpatient resources from [employer]. no other sw needs identified at this time. A: Pt who is I with ambulation and mobility at baseline P: Anticipate patient to discharge back home once medically stable; CIT[employer]EN PARTICIPATION SPECIALIST to continue to follow to assess for unmet d/c needs. BINA Kurtz Addendum: 04/07/17 at 1354 by SANTY TROTTER Amended: Links added.
--- NOTE | 2017-04-07 13:42 | PCM.PNMED ---
Subjective Date of Service Apr 07, 2017 Subjective The patient reports that she continues to feel quite ill, though improved significantly since presentation. She continues to complain of dysuria with frequency, and overall weakness and fatigue. She has continues to manifest significant fevers throughout the day minimally responsive to Tylenol. Overnight the patient was non compliant with care, refusing labs and generally preferring not to be bothered. After discussion this AM she agreed to have labs drawn. Exam Vital Signs Vital Sign - Last Date Time Temp Pulse Resp B/P Pulse Ox O2 Delivery O2 Flow Rate FiO2 04/07/17 11:40 37.6 89 18 84/55 93 Room Air Intake and Output 04/06/17 04/06/17 04/07/17 Cumulative From/Thru 15:00 23:00 07:00 04/07/17 00:54 - 04/07/17 06:25 Intake Total 1696 ml 1696 ml Output Total 0 ml 0 ml Balance 1696 ml 1696 ml Intake Oral 400 ml 400 ml IV Total 1296 ml 1296 ml Output Urine Total 0 ml 0 ml # Bowel Movements 0 0 IVs and Medications Medications Reviewed: Medications were reviewed in detail Lab and Diagnostics Item Value Date Time Red Blood Count 3.78 mil/mm3 L 04/07/17819 Mean Corpuscular Volume 96.6 fL 04/07/17819 Mean Corpuscular Hemoglobin 31.5 pg 04/07/17819 Mean Corpuscular Hemoglobin Concent 32.6 % 04/07/17819 Red Cell Distribution Width 16.7 % H 04/07/17819 Neutrophils (%) (Auto) 58.0 % 04/07/17819 Lymphocytes (%) (Auto) 32.3 % 04/07/17819 Monocytes (%) (Auto) 6.5 % 04/07/17819 Eosinophils (%) (Auto) 2.2 % 04/07/17819 Basophils (%) (Auto) 0.3 % 04/07/17819 Estimat Glomerular Filtration Rate 115 mL/min 04/07/17 08 Lactic Acid Level 2.1 mmol/L H 04/07/17 08 Calcium Level 8.1 mg/dL L 04/07/17819 Phosphorus Level 4.7 mg/dL 04/07/17819 Magnesium Level 1.8 mg/dL 04/07/17819 Total Bilirubin 0.3 mg/dL 04/07/17819 Aspartate Amino Transf (AST/SGOT) 30 U/L 04/07/17819 Alanine Aminotransferase (ALT/SGPT) 11 U/L 04/07/17819 Alkaline Phosphatase 63 U/L 04/07/17819 Total Protein 7.4 g/dL 04/07/17819 Albumin 3.3 g/dL L 04/07/17819 Procalcitonin 0.34 ng/mL H 04/07/17819 Result Diagram: 04/07/1781904/07/17819 Microbiology Blood cultures 2 drawn at [facility] on 04/06/2017. 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 Urinary tract infection, present on admission, active. - Patient transferred from [facility] due to concern that the patient may become septic. Currently stable. No abdominal/pelvic imaging completed to evaluate for pyelonephritis or presence of hydronephrosis. PE not compelling to obtain on admission but low threshold to order imaging. - Review of past hospitalizations reveals urine cultures positive for Enterococcus faecalis and MSSA which were both pansensitive. - UA done at [facility] showed leukocyte esterase along with 10-14 white blood cells. - WBC of 19.9 with 78% neutrophils. - 1 dose of ceftriaxone given at [facility]. Will continue with the addition of Vancomycin until cultures and sensitivities return. - Repeat UA with culture pending. Acute kidney injury, present on admission, active. - Last creatinine on 03/29/2017 was 0.93. At [facility] was found to be 1.37. - 1 L fluid bolus given a [facility]. NS continued at 150 mL per hour. - Avoid nephrotoxic medications. - Repeat CMP in the morning. Hyperlactatemia, present on admission, active. - Minimally elevated lactic acid 2.3 at [facility]. - Repeat lactic trending back to normal - Fluids as above. Fever and malaise, present on admission, active. - Fever at [facility] 38.9. Afebrile since arrival at [facility]. - Resp PCR panel pending. 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 - Unclear whether patient has been taking apixaban, lovenox, or warfarin. Poor historian and likely that she has been taking nothing. Awaiting PT/INR. - Patient received 1 dose of Dalbavancin on 04/01/2017. - Patient was to schedule appointment with Cardiothoracic Surgeon Dr. Benji Dixon at [facility] to discuss possible valve replacement. Chronic stable conditions Polysubstance abuse - Patient denies IV drug since discharge on 04/01/2017. - Urine drug screen at [facility] was positive for benzodiazepines. - Hepatitis C and HIV negative at last admission. Opioid dependence - Suboxone 16 mg daily. Depression and anxiety - Quetiapine 25 mg nightly Seizure disorder - Continue home topiramate 100 mg twice a day History of recurrent soft tissue infections - No physical exam findings to suggest current infection. Asthma - Albuterol when necessary. Insomnia - Continue ropinirole 1 mg nightly. Chronic pain - Gabapentin 600 mg twice a day Disposition: Patient will likely be ready for DC in 2-3 days depending upon clinical response to Antibiotics and nature of pathogens derived from cultures. Pain Evaluation: Adequate Pain Control GI Prophylaxis: Not indicated VTE Prophylaxis: Sub-Q Enoxaparin Resuscitation Status: CPR: Attempt Resuscitation Attending Statement The patient was seen and examined together with Dr. Hidalgo on 04/07/17 and I agree with the history, exam and plan as outlined in the note above. Cricket Hidalgo DO Apr 07, 2017 13:42 David Sy Apr 08, 2017 10:25
--- NOTE | 2017-04-07 16:30 | NUR ---
Temp Pt's temp 38.1 in the AM, given 975mg of Tylenol. MD aware. Temp down to 37.6 in afternoon and 37.3 at 1621. Ongoing care.
--- NOTE | 2017-04-07 16:54 | DRSVH ---
PROCEDURE: X-RAY CHEST ONE VIEW, PORTABLE ([id number]) INDICATIONS: SHORTNESS OF BREATH TECHNIQUE: One view of the chest was acquired. COMPARISON: [facility], CR, KUB, 09/13/2014, 10:27. [facility] Ultrasound, US, ABDOMEN SONOGRAM, 08/13/2014, 7:26. [facility], CR, XR CHEST 1VW (PORTABLE), 02/27/20 17, 19:01. FINDINGS: Surgical changes and devices: None. Lungs and pleura: Interval decrease in cavitary bilateral lung opacification when compared to the tien or examination. No pleural effusion or pneumothorax. Mediastinum: Mediastinal contours appear normal. Heart size is normal. Bones and chest wall: No suspicious bony lesions. Overlying soft tissues appear unremarkable. IMPRESSION: Decreasing cavitary pulmonary opacities when compared to prior examination. Dictated by: Delon Pelayo A Interpreted: Angy Chang MD on 04/07/2017 at 12:26 Approved by: Angy Chang M.D. on 04/07/2017 at 16:52
[2017-04-07] MEDS: 0.9% Sodium Chloride 1,000 ML IV SCH (20:51)
[2017-04-07] MEDS: Ondansetron 2 mg/mL 2 mL Inj IVPUSH PRN (22:34)
[2017-04-08] VITALS (8 sets, daily range): BP systolic 84–116; BP diastolic 53–76; PULSE 64–95; RESP 16–20; O2SAT 96–100
[2017-04-08 00:57] LABS: APPEARANCE,URINE SLIGHTLY CLOUDY (CLEAR,HAZY); COLOR,URINE YELLOW (YELLOW); OCCULT BLOOD,URINE LARGE (NEGATIVE); UROBILINOGEN,URINE NORMAL (NORMAL)
[2017-04-08] MEDS: 0.9% Sodium Chloride 1,000 ML IV SCH ×3 (01:31→21:05)
[2017-04-08] MEDS: cefTRIAXone Inj 2,000 MG in Dextrose 5% Minibag Plus 50 ML IV SCH (03:20)
--- NOTE | 2017-04-08 06:03 | NUR ---
Febrile / O2 / Refusal of Labs / Hypotensive Pt spiked temp of 39.[address] Ivan notified. New order for Ibuprofen 600mg received and administered. PO Tylenol already recently administered. O2 @ 2L per NC applied r/t SpO2 sats only 90% on RA while febrile, SpO2 sats on O2 96-97%. Pt refused lab draws during the night. Around 0322 fever resolved with Temp down to 36.7 C. Pt Hypotensive with SBP's 87-95's and one SBP in the 118's overnight. No c/o chest pain, Tele SR-ST per [facility], with HR 88-114's.
[2017-04-08 06:39] LABS: BASOPHILS % (AUTO) 0.3 % (0-3); EOSINOPHILS % (AUTO) 0.2 % (0-5); MONOCYTES % (AUTO) 6.4 % (4-12); Mean Corpuscular Hemoglobin 31.6 pg (27.0-35.0); Mean Corpuscular Volume 97.3 fL (81-100); Platelet Count 188 bil/L (150-400)
[2017-04-08 06:49] LABS: INR 1.77 ratio
[2017-04-08 07:03] LABS: Magnesium 1.7 mg/dL (1.6-2.6); Phosphorus 4.2 mg/dL (2.5-4.9)
[2017-04-08] MEDS: Buprenorphine 2 mg SL Tablet SL SCH (08:54)
[2017-04-08] MEDS ORDERED: 0.9% Sodium Chloride 500 ML IV ONE (10:40)
[2017-04-08] MEDS: Cefepime Inj 2,000 MG in Dextrose 5% Minibag Plus 100 ML IV SCH ×2 (12:01→17:21)
--- NOTE | 2017-04-08 14:11 | PCM.PNMED ---
Subjective Date of Service Apr 08, 2017 Subjective Today the patient states that she continues to feel quite ill, though minimally improved since baseline. She continues to endorse fevers and chills, weakness, and diffuse body aches. She states that her dysuria has essentially resolved. There were no significant overnight events. Exam Vital Signs Vital Sign - Last Date Time Temp Pulse Resp B/P Pulse Ox O2 Delivery O2 Flow Rate FiO2 04/08/17 12:16 36.4 64 18 88/62 98 Room Air 04/07/17 22:45 2.00 Intake and Output 04/07/17 04/07/17 04/08/17 Cumulative From/Thru 15:00 23:00 07:00 04/07/17 00:54 - 04/08/17 05:19 Intake Total 1200 ml 3050 ml 5946 ml Output Total 750 ml 400 ml 1150 ml Balance 450 ml 2650 ml 4796 ml Intake Oral 1200 ml 200 ml 1800 ml IV Total 2850 ml 4146 ml Output Urine Total 750 ml 400 ml 1150 ml # Voids 1 1 # Bowel Movements 1 1 Exam Gen: A/O x3 pleasant cooperative young woman in mild acute distress secondary to fever and malaise Neck: Supple, non tender, Full ROM HEENT: PERRL, EOMI, no scleral icterus, no conjunctival pallor CV: RRR, no murmurs rubs or gallops Resp: Lungs CTA BL, no wheezing rales or rhonchi Abd: No rebound masses guarding or tenderness Extr: No clubbing cyanosis or edema Neuro: CN 2-12 grossly intact, no focal neurologic deficit Psych: Somewhat flat but otherwise appropriate mood and affect . IVs and Medications Medications Reviewed: Medications were reviewed in detail Lab and Diagnostics Item Value Date Time Red Blood Count 3.01 mil/mm3 L 04/08/17604 Mean Corpuscular Volume 97.3 fL 04/08/17604 Mean Corpuscular Hemoglobin 31.6 pg 04/08/17604 Mean Corpuscular Hemoglobin Concent 32.4 % 04/08/17604 Red Cell Distribution Width 16.1 % H 04/08/17604 Neutrophils (%) (Auto) 71.0 % 04/08/17604 Lymphocytes (%) (Auto) 21.4 % 04/08/17604 Monocytes (%) (Auto) 6.4 % 04/08/17 Eosinophils (%) (Auto) 0.2 % 04/08/17 06 Basophils (%) (Auto) 0.3 % 04/08/17 06 Estimat Glomerular Filtration Rate 70 mL/min 04/08/17 06 Lactic Acid Level 1.2 mmol/L 04/08/17 1120 Calcium Level 7.8 mg/dL L 04/08/17 06 Phosphorus Level 4.2 mg/dL 04/08/17 06 Magnesium Level 1.7 mg/dL 04/08/17 06 Total Bilirubin 0.3 mg/dL 04/08/17 06 Aspartate Amino Transf (AST/SGOT) 17 U/L 04/08/17 06 Alanine Aminotransferase (ALT/SGPT) 10 U/L 04/08/17 06 Alkaline Phosphatase 49 U/L 04/08/17 06 Total Protein 6.4 g/dL 04/08/17 06 Albumin 3.0 g/dL L 04/08/17604 Procalcitonin 10.30 ng/mL H 04/08/17 06 Result Diagram: 04/08/17 0604/08/17 06 Microbiology Blood cultures 2 drawn at [facility] on 04/06/2017. Repeat blood cultures and urine cultures pending X-Rays, CTs and MRIs X-RAY CHEST ONE VIEW, PORTABLE IMPRESSION: Decreasing cavitary pulmonary opacities when compared to prior examination. Dictated by: Delon Pelayo RRA Interpreted: Angy Chang MD on 04/07/2017 at 12: 26 Approved by: Angy Chang M.D. on 04/07/2017 at 16:52 . 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 Patient's subsequent UA failed to reveal any signs of infection, though the urine was collected after several doses of IV antibiotics; clearly this patient appears to be suffering from an infection, but the source of the infection remains uncertain at this time. Possible Urinary tract infection, present on admission, active. - Patient transferred from [facility] due to concern that the patient may become septic. Stable at time of arrival. - Review of past hospitalizations reveals urine cultures positive for Enterococcus faecalis and MSSA which were both pansensitive. - UA done at [facility] showed leukocyte esterase along with 10-14 white blood cells. - WBC of 19.9 with 78% neutrophils. - 1 dose of ceftriaxone given at [facility]. Changed to Cefepime per ID recommendations - Repeat UA with culture pending. Sepsis, POA, acute. Active - Patient with fevers, hypotension, tachycardia, and tachypnea - Patient has stabilized without pressors - Abx as above - Will continue with cautious use of IVF given underlying cardiac status - Source unclear at present, possible urinary, though subsequent lab evaluation renders this conjecture less certain Acute kidney injury, present on admission, active. - Last creatinine on 03/29/2017 was 0.93. At [facility] was found to be 1.37. - 1 L fluid bolus given a [facility]. NS continued at 150 mL per hour. - Avoid nephrotoxic medications. - Repeat CMP in the morning. - As above, will be judicious in fluid resuscitation given cardiac compromise Lactic Acidosis, present on admission, Resolved - Minimally elevated lactic acid 2.3 at [facility]. - Repeat lactic trending back to normal - Fluids as above. Fever and malaise, present on admission, active. - Fever at [facility] 38.9. Afebrile since arrival at [facility]. - Resp PCR panel pending. 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 - Unclear whether patient has been taking apixaban, lovenox, or warfarin. Poor historian and likely that she has been taking nothing. Awaiting PT/INR. - Patient received 1 dose of Dalbavancin on 04/01/2017. - Patient was to schedule appointment with Cardiothoracic Surgeon Dr. Benji Dixon at [facility] to discuss possible valve replacement. Chronic stable conditions Polysubstance abuse - Patient denies IV drug since discharge on 04/01/2017. - Urine drug screen at [facility] was positive for benzodiazepines. - Hepatitis C and HIV negative at last admission. Opioid dependence - Suboxone 16 mg daily. Depression and anxiety - Quetiapine 25 mg nightly Seizure disorder - Continue home topiramate 100 mg twice a day History of recurrent soft tissue infections - No physical exam findings to suggest current infection. Asthma - Albuterol when necessary. Insomnia - Continue ropinirole 1 mg nightly. Chronic pain - Gabapentin 600 mg twice a day Disposition: Patient will likely be ready for DC in 2-3 days depending upon clinical response to Antibiotics and nature of pathogens derived from cultures. Pain Evaluation: Adequate Pain Control GI Prophylaxis: Not indicated VTE Prophylaxis: Sub-Q Enoxaparin Resuscitation Status: CPR: Attempt Resuscitation Attending Statement The patient was seen and examined together with Dr. Hidalgo on 04/08/17 and I agree with the history, exam and plan as outlined in the note above. Cricket Hidalgo DO Apr 08, 2017 13:54 David Sy Apr 08, 2017 18:24
[2017-04-08] MEDS: LORazepam 1 mg Tablet PO PRN (14:20)
--- NOTE | 2017-04-08 14:26 | NUR ---
Social Work-readiness for discharge: Data:EMR reviewed. Pt is on day 1 of hospitalization for sepsis per H&P. Pt is not medically stable anticipate 1-2 more days. Pt resides at home with her mom in [facility] where she remains independent with ADLS. Pt is connected with [facility] for suboxone as an outpt. Pt is currently on IV abx. No anticipated discharge needs. SW will continue to follow if needs arise. Assessment:pt who is independent at baseline. Plan:Pt to discharge home when medically stable via pOV. Pt is established at [facility] for Suboxone. No anticipated discharge needs. SW will continue to follow if needs arise. BINA Sanchez
--- NOTE | 2017-04-08 16:17 | CONS ---
[address] [address] CONSULTATION REPORT PATIENT: RAJANI ALSTON : 1990 MR#: [id number] ADMIT: 04/07/2017 JOB ID: [id number] DATE OF SERVICE: HISTORY: The patient is a very pleasant but unfortunate 26-year-old white female, who is well known to me from multiple previous consultations. 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 She has had several episodes of acute kidney injury relating to this and most recently was hospitalized last month for what appeared to be acute staphylococcal glomerulonephritis. She was transferred here from [facility] for what appeared to be pyelonephritis and sepsis. At time of admission, her creatinine was 0.87 and has risen to a level of 1.33. Renal consultation is being sought for further evaluation of her acute kidney injury. As noted above, I am quite familiar with the patient having taken care of her on several occasions in the past. She has an extensive history of IV drug abuse which has resulted in endocarditis. As noted above she was recently here for the last several months for methicillin- sensitive endocarditis involving her tricuspid valve. She developed acute kidney injury as a complication of this and unlike her previous episode of acute kidney injury, I felt that this was probably due to post staphylococcal glomerulonephritis. Also during this hospitalization, she had evidence of acute pyelonephritis. Her renal complications improved with prolonged antibiotic therapy and her renal function returned to normal prior to discharge. Since discharge, she has been living with her mother and daughter and has been maintaining sobriety. She states that about 1-1/2 days prior to admission, she has been complaining a generalized weakness, diffuse myalgias, nausea with some vomiting, and decreased oral intake. She also was complaining of some urinary discomfort but no frequency or urgency. Furthermore, she denies any cough, wheezing, headache, visual disturbances, chest pain, shortness of breath, lower extremity edema, diarrhea or constipation. As noted above. She denied any rash or any arthralgias or joint swelling. She has not been taking any [id number] medications with the exception of an occasional acetaminophen. In the emergency department at [facility], her urinalysis showed a specific gravity of 1.020, pH was 6. Tests for protein and blood were both positive as was leukocyte esterase. Microscopic exam showed some bacteria, 6-10 white cells, and 3-5 red cells, and a few epithelial cells. Per the patient's request she was transferred to [facility]. On admission, her blood pressure was quite low, down in the low 80s. She was given aggressive IV hydration with some improvement in her blood pressure. Also, at time of admission, she had a significant anion gap metabolic acidosis with a lactate of 2.1. She was also placed on cefepime and her cultures are pending at time of this dictation. She does have a history of recurrent urinary tract infections and has had gonorrhea several times. She has been repeatedly tested for hepatitis and HIV and these have all been negative. She denies a history of rheumatoid arthritis or lupus, nor is there any history of hypertension or diabetes. 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 She denies a history of any migraine headache, asthma, emphysema, rheumatic fever, congenital heart disease, peptic ulcer disease, thyroid illness, or cancer. PAST SURGICAL HISTORY: Significant for a sternocleido joint mass aspiration. She is allergic to BACTRIM. SOCIAL HISTORY: She denies the use of alcohol, and has a history of prior tobacco use but states she no longer uses tobacco or heroin. FAMILY HISTORY: Remarkable for her father dying of lung cancer and her mother has a history of renal lithiasis. MEDICATIONS: At time of admission include topiramate, Lovenox, gabapentin, quetiapine, Suboxone, ropinirole REVIEW OF SYSTEMS: Detailed above, but there is no history of any severe headache, recent seizures, visual disturbances, amaurosis fugax, cough, wheezing, chest pain, or shortness of breath, or edema. Furthermore, she denies any diarrhea, constipation, anorexia, significant change in weight. PHYSICAL EXAMINATION: Revealed a pale, well-developed though somewhat lethargic-appearing, 26-year-old white female, who was alert and oriented to herself but somewhat lethargic due to medications. Her blood pressure is 118/80 with a pulse rate of 84. HEENT: Examination is remarkable for pale sclerae. Cornea, conjunctivae, pupils, and extraocular muscles were unremarkable. Her mucous membranes were moist. Neck is supple without adenopathy, thyromegaly, or jugular venous distention. Lungs are clear to auscultation. Heart is regular and rhythmical with a soft systolic murmur. Abdomen is soft with somewhat diminished bowel sounds. There was no tenderness, rebound, guarding, masses or hepatosplenomegaly. Extremities do not show any evidence of any clubbing, cyanosis, edema, or splinter hemorrhages. Skin turgor was good and there was no evidence of any rashes. LABORATORY EXAMINATION: As noted above. This morning, her sodium is 135, potassium 4.2, chloride of 107, bicarbonate 14, BUN and creatinine were 15 and 1.33, glucose was 111. Lactate was 2.1. Liver function studies were normal, albumin was 3.0, and procalcitonin was 10. Her CBC this morning showed a white count of 19.2, hemoglobin 9.5, hematocrit 29.3. Red cell indices, platelet count and differential were normal. Urinalysis showed a specific gravity 1.020, pH was 6. Tests for protein, occult blood were positive. There were 3-10 WBCs per high-power field and 6-10 RBCs per high-power field. There were some occasional epithelial cells, few bacteria, and some granular casts were noted. Chest x-ray showed a decrease in her cavitary opacities in the lungs compared to previous tracings. IMPRESSION: 1. Acute kidney injury secondary to hypotension, dehydration, and sepsis, which appears to be improving with IV fluids. 2. Pyelonephritis. 3. Increased anion gap and normal anion gap metabolic acidosis. RECOMMENDATION: We were asked to provide input on a potential CAT scan of the patient's chest and abdomen. In light of the fact that she has been getting IV hydration, I feel that this can be done. However, I would strongly recommend that we continue with IV hydration through at least tomorrow. I would also like to get urine free eosinophils along with a C3 and a C4. I would also like to get a rheumatoid factor on her and we need to continue to serially follow her labs Once again, I would like to thank you for allowing me to participate in the care of this most pleasant but unfortunate patient. Will be following her closely with you.
--- NOTE | 2017-04-08 17:24 | NUR ---
Edema Pt is a little more swollen in the hands and forearms as compared to this morning. Also noted is eyelid edema, pt had been crying earlier but says that her face is swollen compared to most days. Will inform MD and continue to monitor.
--- NOTE | 2017-04-08 18:13 | DRSVH ---
PROCEDURE: CT CHEST, ABDOMEN AND PELVIS [facility] CONTRAST ([id number]) INDICATIONS: eval for occult source of infection TECHNIQUE: After the administration of oral and intravenous contrast, 5 mm thick sections acquired from the lung apices to the symphysis. 5 mm coronal and sagittal reformats were performed, with additional 7 mm c oronal MIP reformats through the lungs. For radiation dose reduction, the following was used: autom ated exposure control, adjustment of mA and/or kV according to patient size. COMPARISON: [facility], CT, CT CHEST WO CON, 03/02/2017, 19:02. [facility], CT, CT CHEST ABD PELVIS WO CON, 02/17/2017, 1:38. FINDINGS: Image quality: Excellent. CHEST: Lungs and pleura: The previously identified bilateral cavitary lesions demonstrate significant interv al improvement compared to prior exam. Overall, it demonstrates significant interval decrease in size and number while several cavitary lesions did persists, although smaller in size. There remains an a ppearance of minimal bilateral pleural effusions. Mediastinum: Heart size is normal. No pericardial effusion. Multiple mediastinal lymph nodes remain present, although overall decreased in size and number compared to prior exam. Thoracic aorta and ce ntral pulmonary arteries are normal in size. Esophagus is normal in caliber. No hiatal hernia. Chest wall: No axillary or supraclavicular adenopathy by size criteria. Thyroid gland is unremarkab le. ABDOMEN: Solid organs: Liver is enlarged steatosis. The spleen is normal in size and enhancement. Gallbladde r fossa demonstrates prominent low attenuation appearance. No visualized stone. Biliary system is non dilated. Pancreas enhances normally. No adrenal nodules. Kidneys demonstrate normal size. As iden tified on the 02/17/17 exam, there is a slightly edematous appearance of the right kidney. However, con trast enhancement is within normal limits. Peritoneum and bowel: Bowel loops demonstrate normal wall thickness and caliber. There has been inte rval development of mild scattered fluid within the mid abdomen, paracolic gutters as well as depende nt pelvis. There is no ring-enhancing fluid collection identified. No visualized abscess. Nodes and vessels: No retroperitoneal or mesenteric adenopathy by size criteria. Aorta and inferior vena cava are normal in size. Miscellaneous: No ventral hernias. PELVIS: Genitourinary: Bladder wall thickness is normal. Miscellaneous: No inguinal hernias or adenopathy. Bones: No suspicious bony lesions. No vertebral body compression fractures. IMPRESSION: 1. Markedly improved appearance of previous pulmonary cavitary lesions. 2. Interval development of mild free fluid within the abdomen and pelvis. No visualized abscess. 3. Low attenuation appearance is present within the gallbladder fossa suggestive of fluid. However, s uperimposed gallbladder wall thickening cannot be excluded. If concern exists for gallbladder patholo gy, ultrasound is recommended for additional evaluation. 4. Persistent, slightly edematous appearance of the right kidney with normal contrast enhancement. As previously suggested, infection/inflammation cannot be excluded. Dictated by: Angy Chang M.D. on 04/08/2017 at 18:01 Approved by: Angy Chang M.D. on 04/08/2017 at 18:10
[2017-04-08] MEDS: Ondansetron 2 mg/mL 2 mL Inj IVPUSH PRN (23:36)
[2017-04-09] VITALS (8 sets, daily range): BP systolic 82–93; BP diastolic 59–63; PULSE 63–96; RESP 14–21; O2SAT 95–99
[2017-04-09] MEDS: LORazepam 1 mg Tablet PO PRN (01:35)
[2017-04-09] MEDS: Cefepime Inj 2,000 MG in Dextrose 5% Minibag Plus 100 ML IV SCH ×3 (01:41→16:29)
--- NOTE | 2017-04-09 06:24 | NUR ---
Fever/BPs At approximately 0400 pt had temperature of 38.3. Pt was given 975mg Tylenol PO at approximately 0415. Around 0500 pt's temp was retaken and was 39.2 at this time. At approximately 0615 pt's temp was retaken again and pt's temp was now 37.5. Pt says that she feels better. Pt's BP has been up and down with a MAP >60. Pt's lowest BP was 82/62.
[2017-04-09] MEDS: Buprenorphine 2 mg SL Tablet SL SCH (08:40)
--- NOTE | 2017-04-09 10:37 | NUR ---
NUTRITION ASSESSMENT: ASSESS: 26 YO F presented to [facility] with fever and generalized malaise. Patient was recently hospitalized from 02/17/2017 - 04/01/2017 for treatment of endocarditis. Patient denies IV drug use since discharge. She was found to have a UTI, PRISCILA, and concern for possible sepsis. Patient was transferred here for management. She does have a fever and hyperlactatemia. Nephrology noting PRISCILA is secondary to hypotension, dehydration, sepsis and pyelonephritis, which appears to be improving with IV fluids. PMHX: Tricuspid valve staph endocarditis, IVDA (meth and heroin), PE, PNA, UTI's, gonorrhea, seizure disorder, major depression, joint sepsis from IVDA. LABS: Reviewed. CO2 14, Cr 1.33, Glu 111, Ca 7.8, Alb 3.0, Procalc. 10.3. MEDS:Reviewed. Coumadin. GI: BM x 2 (04/08). CURRENT WT: 71.8 kg, BMI 30.3 kg/m2, Admit wt: 67.7 kg, IBW: 52.3 kg WEIGHT LOSS: 10.6 kg x 6 weeks = 12.86%; 8.3 kg x 1 month - 6.5% = severe malnutrition. The patient is edematous which, combined with her weight loss, does meet criteria for severe malnutrition. DIET: General. PO intake 0 - 10% trays. ESTIMATED NEEDS (PRISCILA ON CKD): Calories: 1693 - 2370 kcal (25 - 35 kcal / kg BW) Protein: 41 - 54 g protein (0.6 - 0.8 g / kg BW) NUTRITION DIAGNOSIS: 1) Inadequate oral intake related to chronic disease as evidenced by reported weakness prior to admit and history of endocarditis and IVD use - PERSISTS. NUTRITION INTERVENTION: 1) Continue current diet and add previous admission supplement/snacks as ordered; Ensure at lunch, 2 milks per tray. 2) On 0 02/24/17 during previous admission, RD spoke with pt about foods that she likes/dislikes and bland foods that will not exacerbate her nausea. Pt does not like Magic Cups or Mighty shakes because they are too chalky. She says she can taste the added protein. She loves milk so will send 2 cartons of whole milk on all trays. She likes Iranian yogurt, which the hospital does not supply. Encouraged pt to ask her mother to bring in the yogurt that she likes and any other food that the pt prefers. She agreed to try Vanilla Ensure. Discussed how she can dilute the Ensure with milk so that it isn't so chalky. Discussed adding extra butter and gravy to foods to provide more kcal. Discussed eating smaller, more frequent meals when appetite is down. Encourage pt to try to eat at least 50% of all meals. Pt expressed understanding and stated that she would try. MONITOR/EVALUATE: PO intake, weight, GI, labs, nutrition status. Follow per high nutrition risk guidelines.
[2017-04-09 10:40] LABS: BASOPHILS % (AUTO) 0.3 % (0-3); EOSINOPHILS % (AUTO) 0.7 % (0-5); Mean Corpuscular Hemoglobin 31.4 pg (27.0-35.0); Mean Corpuscular Volume 96.6 fL (81-100); NEUTROPHILS % (AUTO) 68.6 % (40-74); Platelet Count 191 bil/L (150-400)
[2017-04-09] MEDS: 0.9% Sodium Chloride 1,000 ML IV SCH ×2 (11:00→18:11)
--- NOTE | 2017-04-09 11:00 | PCM.PNNEPH ---
Subjective Date of Service Apr 09, 2017 Subjective The patient is about the same today. Her lab is pending at time of this dictation is here having considerable problems with naming her blood. She denies any headache, cough, wheezing nausea or vomiting. Her urine culture is positive for enterococcus. CT scan was remarkable for some edema and possible inflammation of the right kidney consistent with pyelonephritis. Exam Vital Signs Vital Sign - Last Date Time Temp Pulse Resp B/P Pulse Ox O2 Delivery O2 Flow Rate FiO2 04/09/17 08:46 36.6 75 14 93/63 96 Room Air 04/07/17 22:45 2.00 Intake and Output 04/08/17 04/08/17 04/09/17 Cumulative From/Thru 15:00 23:00 07:00 04/07/17 00:54 - 04/09/17 06:21 Intake Total 3153 ml 1991 ml 36745 ml Output Total 1150 ml Balance 3153 ml 1991 ml 9940 ml Intake Oral 1600 ml 300 ml 3700 ml IV Total 1553 ml 1691 ml 7390 ml Output Urine Total 1150 ml # Voids 3 1 5 # Bowel Movements 1 2 Exam Neck is supple without adenopathy, thyromegaly, or jugular venous distention. Lungs are clear to auscultation. Heart is regular and rhythmical with a soft systolic murmur. Abdomen soft without any tenderness or rebound guarding masses or hepatosplenomegaly. Extremities without any evidence of any clubbing , cyanosis, or edema. Skin turgor is good and there is no evidence of any rashes. Lab and Diagnostics Result Diagram: 04/09/17 1030 04/08/17 0605 Microbiology Blood cultures 2 drawn at [facility] on 04/06/2017. Repeat blood cultures and urine cultures pending X-Rays, CTs and MRIs X-RAY CHEST ONE VIEW, PORTABLE IMPRESSION: Decreasing cavitary pulmonary opacities when compared to prior examination. Dictated by: Delon LEYVA Interpreted: Angy Chang MD on 04/07/2017 at 12: 26 Approved by: Angy Chang M.D. on 04/07/2017 at 16:52 . Plan Impression Impression #1 acute kidney injury #2 pyelonephritis secondary to enterococcus # 3 metabolic acidosis Recommendations #1 in light of the enterococcus in her urine I would be quite concerned about the possibility of a new episode of endocarditis all home the enterococcus. Otherwise I await her lab results for today. Abel Monge DO Apr 09, 2017 11:00
[2017-04-09 11:22] LABS: Magnesium 1.7 mg/dL (1.6-2.6); Phosphorus 3.3 mg/dL (2.5-4.9)
--- NOTE | 2017-04-09 11:50 | PCM.PNMED ---
Subjective Date of Service Apr 09, 2017 Subjective Denies any new issues/complaints. Some nausea earlier but no vomit. No abdominal pain. Exam Vital Signs Vital Sign - Last Date Time Temp Pulse Resp B/P Pulse Ox O2 Delivery O2 Flow Rate FiO2 04/09/17 08:46 36.6 75 14 93/63 96 Room Air 04/07/17 22:45 2.00 Intake and Output 04/08/17 04/08/17 04/09/17 Cumulative From/Thru 15:00 23:00 07:00 04/07/17 00:54 - 04/09/17 06:21 Intake Total 3153 ml 1991 ml 56328 ml Output Total 1150 ml Balance 3153 ml 1991 ml 9940 ml Intake Oral 1600 ml 300 ml 3700 ml IV Total 1553 ml 1691 ml 7390 ml Output Urine Total 1150 ml # Voids 3 1 5 # Bowel Movements 1 2 General: Alert, Cooperative, No Acute Distress Head: Normal Eyes: Scleral Anicteric Nose: Mucous Membr Moist/[place] Mouth: Mucous Membr Moist/[place] Neck: Supple Chest & Lungs: Chest Wall Normal, Clear to auscultation & percussion Cardiovascular: Regular Rate/Rhythm Pulses: NL carotid, radial, femoral, DP, PT Abdomen: Non-tender, Non-distended, Normoactive bowel tones, Soft Extremities: No cyanosis/clubbing/edma bilat Neurological: Grossly Neurologically Intact, Cranial Nerves 2-12 Intact, Normal Speech Additional Information: Psych: Calm, appropriate IVs and Medications Medications Reviewed: Medications were reviewed in detail Lab and Diagnostics Result Diagram: 04/09/17 1030 04/08/17 0605 Microbiology Blood cultures 2 drawn at [facility] on 04/06/2017. Repeat blood cultures and urine cultures pending X-Rays, CTs and MRIs X-RAY CHEST ONE VIEW, PORTABLE IMPRESSION: Decreasing cavitary pulmonary opacities when compared to prior examination. Dictated by: Delon LEYVA Interpreted: Angy Chang MD on 04/07/2017 at 12: 26 Approved by: Angy Chang M.D. on 04/07/2017 at 16:52 . Date of Service: 04/08/17 1505 PROCEDURE: CT CHEST, ABDOMEN AND PELVIS [facility] CONTRAST ([id number]) IMPRESSION: 1. Markedly improved appearance of previous pulmonary cavitary lesions. 2. Interval development of mild free fluid within the abdomen and pelvis. No visualized abscess. 3. Low attenuation appearance is present within the gallbladder fossa suggestive of fluid. However, superimposed gallbladder wall thickening cannot be excluded. If concern exists for gallbladder pathology, ultrasound is recommended for additional evaluation. 4. Persistent, slightly edematous appearance of the right kidney with normal contrast enhancement. As previously suggested, infection/inflammation cannot be excluded. Dictated by: Angy Chang M.D. on 04/08/2017 at 18:01 Approved by: Angy Chang M.D. on 04/08/2017 at 18:10 Assessment & Plan 26-year-old female with past medical history significant for IV heroin and meth use causing MSSA tricuspid valve endocarditis with septic pulmonary emboli with recent completion of 6 weeks of antibiotic treatment on 04/01/2017 who presented to [facility] with fever and generalized malaise with reports of a UTI and sepsis. Possible Urinary tract infection, present on admission, active. - Patient transferred from [facility] due to concern that the patient may become septic. Stable at time of arrival. - Review of past hospitalizations reveals urine cultures positive for Enterococcus faecalis and MSSA which were both pansensitive. - UA done at [facility] showed leukocyte esterase along with 10-14 white blood cells. - WBC of 19.9 with 78% neutrophils. - 1 dose of ceftriaxone given at [facility]. Changed to Cefepime per ID recommendations - Repeat UA with culture pending. Sepsis, POA, acute. Active - Patient with fevers, hypotension, tachycardia, and tachypnea - BP has stabilized without pressors - Abx as above - Will continue with cautious use of IVF given underlying cardiac status - Source likely UTI - CT chest/abd/pelvis on 04/08/17 unrevealing. Acute kidney injury, not present on admission - At [facility] was found to be 1.37. - Avoid nephrotoxic medications. - Continue with cautious IVF - Difficult to draw labs this morning. Followup repeat labs Acute Lactic Acidosis, present on admission, Resolved - Minimally elevated lactic acid 2.3 at [facility]. - Repeat lactic trending back to normal - Fluids as above. Fever and malaise, present on admission, ongoing. - Repeat daily blood cultures while spiking fevers - Followup pending cultures. 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 - Received 1 dose of Dalbavancin on 04/01/2017. - Patient was to schedule appointment with Cardiothoracic Surgeon Dr. Benji Dixon at [facility] to discuss possible valve replacement. Reported history of recent upper extremity DVT - Unclear whether patient has been taking apixaban, lovenox, or warfarin. Poor historian and likely that she has been taking nothing. Awaiting PT/INR. Chronic stable conditions Polysubstance abuse - Patient denies IV drug since discharge on 04/01/2017. - Urine drug screen at [facility] was positive for benzodiazepines. - Hepatitis C and HIV negative at last admission. Opioid dependence - Suboxone 16 mg daily. Depression and anxiety - Quetiapine 25 mg nightly Seizure disorder - Continue home topiramate 100 mg twice a day History of recurrent soft tissue infections - No physical exam findings to suggest current infection. Asthma - Albuterol when necessary. Insomnia - Continue ropinirole 1 mg nightly. Chronic pain - Gabapentin 600 mg twice a day Disposition: 3-4 days pending remaining afebrile and infection workup and treatment GI Prophylaxis: Not indicated VTE Prophylaxis: Sub-Q Enoxaparin Resuscitation Status: CPR: Attempt Resuscitation David Sy Apr 09, 2017 11:50
[2017-04-09 15:58] LABS: INR 6.15 ratio
--- NOTE | 2017-04-09 18:23 | NUR ---
Alertness Pt has been really drowsy today, falling asleep during conversations, has not gotten up much today and sleeping for most part. Will awaken when you enter the room or talk to her but doesn't stay awake. MD aware and will continue to monitor.
[2017-04-10] VITALS (7 sets, daily range): BP systolic 88–103; BP diastolic 62–68; PULSE 67–146; RESP 15–20; O2SAT 87–98
[2017-04-10] MEDS: Cefepime Inj 2,000 MG in Dextrose 5% Minibag Plus 100 ML IV SCH ×3 (01:22→16:17)
--- NOTE | 2017-04-10 03:40 | NUR ---
Drowsy/Tele/ABX Room air, NS@ 100, A&O x3 using call light sparingly, very sleepy but easily abusable, pain in left shoulder. Didn't eat any dinner. Edematous in both hands and face, not evident in feet or lower legs. Tele: [id number]
[2017-04-10] MEDS: 0.9% Sodium Chloride 1,000 ML IV SCH (04:33)
[2017-04-10 06:10] LABS: BASOPHILS % (AUTO) 0.4 % (0-3); EOSINOPHILS % (AUTO) 1.7 % (0-5); Mean Corpuscular Hemoglobin 31.4 pg (27.0-35.0); Mean Corpuscular Volume 99.7 fL (81-100); NEUTROPHILS % (AUTO) 69.7 % (40-74); Platelet Count 167 bil/L (150-400)
[2017-04-10 06:23] LABS: INR 3.16 ratio
[2017-04-10 06:50] LABS: Magnesium 1.7 mg/dL (1.6-2.6)
[2017-04-10] MEDS: Buprenorphine 2 mg SL Tablet SL SCH (08:50)
--- NOTE | 2017-04-10 10:58 | PCM.PNNEPH ---
Subjective Date of Service Apr 10, 2017 Subjective Patient's renal function is back to baseline. Urine for eosinophils were negative. The patient denies any new complaints. Still rather lethargic. She denies any headache, cough, nausea or vomiting. Calcitonin levels were also decreasing. From yesterday's dictation her urine is positive for intraoral cocci. Also cleft is 100,000 in light of history and previous history of endocarditis. Still be quite suspicious of this and consider treating this disease recommendation. Exam Vital Signs Vital Sign - Last Date Time Temp Pulse Resp B/P Pulse Ox O2 Delivery O2 Flow Rate FiO2 04/10/17 08:41 37.2 75 18 100/68 98 Room Air 04/07/17 22:45 2.00 Intake and Output 04/09/17 04/09/17 04/10/17 Cumulative From/Thru 15:00 23:00 07:00 04/07/17 00:54 - 04/10/17 05:55 Intake Total 1554 ml 1686 ml 87474 ml Output Total 0 ml 1150 ml Balance 1554 ml 1686 ml 80981 ml Intake Oral 300 ml 352 ml 4352 ml IV Total 1254 ml 1334 ml 9978 ml Output Urine Total 0 ml 1150 ml # Voids 2 7 # Bowel Movements 2 Exam Neck is supple without adenopathy, thyromegaly, or jugular venous distention. Lungs are clear to auscultation. Heart was regular and rhythmical with a soft systolic murmur abdomen is soft without any tenderness rebound guarding masses or hepatosplenomegaly. Extremities do not show any evidence of any clubbing cyanosis or edema. Skin turgor skull depression or evidence of any rashes. Lab and Diagnostics Result Diagram: 04/10/17 0600 04/10/17 0600 Microbiology Blood cultures 2 drawn at [facility] on 04/06/2017. Repeat blood cultures and urine cultures pending X-Rays, CTs and MRIs X-RAY CHEST ONE VIEW, PORTABLE IMPRESSION: Decreasing cavitary pulmonary opacities when compared to prior examination. Dictated by: Delon LEYVA Interpreted: Angy Chang MD on 04/07/2017 at 12: 26 Approved by: Angy Chang M.D. on 04/07/2017 at 16:52 . Date of Service: 04/08/17 1505 PROCEDURE: CT CHEST, ABDOMEN AND PELVIS [facility] CONTRAST ([id number]) IMPRESSION: 1. Markedly improved appearance of previous pulmonary cavitary lesions. 2. Interval development of mild free fluid within the abdomen and pelvis. No visualized abscess. 3. Low attenuation appearance is present within the gallbladder fossa suggestive of fluid. However, superimposed gallbladder wall thickening cannot be excluded. If concern exists for gallbladder pathology, ultrasound is recommended for additional evaluation. 4. Persistent, slightly edematous appearance of the right kidney with normal contrast enhancement. As previously suggested, infection/inflammation cannot be excluded. Dictated by: Angy Chang M.D. on 04/08/2017 at 18:01 Approved by: Angy Chang M.D. on 04/08/2017 at 18:10 Plan Impression Impression #1 acute kidney injury which appears to be resolving #2 sepsis which appears to be resolving pyelonephritis secondary to narcotics which appears to resolving Recommendations #1 over to decrease her IV fluid at this time and continue to follow her laboratory parameters and I will await her final report on her urine culture. Abel Monge DO Apr 10, 2017 10:58
--- NOTE | 2017-04-10 12:42 | PCM.PNMED ---
Subjective Date of Service Apr 10, 2017 Subjective Today that patient appears to be acutely altered compared to baseline; she is repeating words, phrases, and behaviors in a quite concerning fashions. She states that she is feeling well and greatly improved from baseline; however there is a clear change in mentation compared to prior examination. No significant overnight events. Exam Vital Signs Vital Sign - Last Date Time Temp Pulse Resp B/P Pulse Ox O2 Delivery O2 Flow Rate FiO2 04/10/17 08:41 37.2 75 18 100/68 98 Room Air 04/07/17 22:45 2.00 Intake and Output 04/09/17 04/09/17 04/10/17 Cumulative From/Thru 15:00 23:00 07:00 04/07/17 00:54 - 04/10/17 05:55 Intake Total 1554 ml 1686 ml 60722 ml Output Total 0 ml 1150 ml Balance 1554 ml 1686 ml 32284 ml Intake Oral 300 ml 352 ml 4352 ml IV Total 1254 ml 1334 ml 9978 ml Output Urine Total 0 ml 1150 ml # Voids 2 7 # Bowel Movements 2 Exam Gen: A/O x3 pleasant cooperative young woman in NAD, Neck: Supple, non tender, Full ROM HEENT: PERRL, EOMI, no scleral icterus, no conjunctival pallor CV: RRR, no murmurs rubs or gallops Resp: Lungs CTA BL, no wheezing rales or rhonchi Abd: No rebound masses guarding or tenderness Extr: No clubbing cyanosis or edema Neuro: CN 2-12 grossly intact, no focal neurologic deficit Psych: Patient is clearly altered compared to baseline IVs and Medications Medications Reviewed: Medications were reviewed in detail Lab and Diagnostics Item Value Date Time Red Blood Count 3.06 mil/mm3 L 04/10/17599 Mean Corpuscular Volume 99.7 fL 04/10/17599 Mean Corpuscular Hemoglobin 31.4 pg 04/10/17599 Mean Corpuscular Hemoglobin Concent 31.5 % L 04/10/17599 Red Cell Distribution Width 16.9 % H 04/10/17599 Neutrophils (%) (Auto) 69.7 % 04/10/17 06 Lymphocytes (%) (Auto) 20.8 % 04/10/17599 Monocytes (%) (Auto) 7.0 % 04/10/17599 Eosinophils (%) (Auto) 1.7 % 04/10/17599 Basophils (%) (Auto) 0.4 % 04/10/17599 Estimat Glomerular Filtration Rate 96 mL/min 04/10/17599 Calcium Level 7.9 mg/dL L 04/10/17599 Magnesium Level 1.7 mg/dL 04/10/17599 Procalcitonin 5.24 ng/mL H 04/10/17599 Result Diagram: 04/10/1759904/10/17599 Microbiology Blood cultures 2 drawn at [facility] on 04/06/2017. Repeat blood cultures and urine cultures pending X-Rays, CTs and MRIs X-RAY CHEST ONE VIEW, PORTABLE IMPRESSION: Decreasing cavitary pulmonary opacities when compared to prior examination. Dictated by: Delon Pelayo [facility] Interpreted: Angy Chang MD on 04/07/2017 at 12: 26 Approved by: Angy Chang M.D. on 04/07/2017 at 16:52 . Date of Service: 04/08/17 1505 PROCEDURE: CT CHEST, ABDOMEN AND PELVIS WTIH CONTRAST ([id number]) IMPRESSION: 1. Markedly improved appearance of previous pulmonary cavitary lesions. 2. Interval development of mild free fluid within the abdomen and pelvis. No visualized abscess. 3. Low attenuation appearance is present within the gallbladder fossa suggestive of fluid. However, superimposed gallbladder wall thickening cannot be excluded. If concern exists for gallbladder pathology, ultrasound is recommended for additional evaluation. 4. Persistent, slightly edematous appearance of the right kidney with normal contrast enhancement. As previously suggested, infection/inflammation cannot be excluded. Dictated by: Angy Chang M.D. on 04/08/2017 at 18:01 Approved by: Angy Chang M.D. 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 Patient now manifesting troubling mental status changes with repeated words and phrases with uncoordinated repetitive actions. Possible Urinary tract infection, present on admission, active. - Patient transferred from [facility] due to concern that the patient may become septic. Stable at time of arrival. - Review of past hospitalizations reveals urine cultures positive for Enterococcus faecalis and MSSA which were both pansensitive. - UA done at [facility] showed leukocyte esterase along with 10-14 white blood cells. - WBC of 19.9 with 78% neutrophils. - 1 dose of ceftriaxone given at [facility]. Changed to Cefepime per ID recommendations - Urine growing enterococcus, suspicious for VRE, will await follow up from ID to alter regimen as patient appears to be responding to current antibiotics Sepsis, POA, acute. Active - Patient with fevers, hypotension, tachycardia, and tachypnea - BP has stabilized without pressors - Abx as above - Will continue with cautious use of IVF given underlying cardiac status - Source likely UTI - CT chest/abd/pelvis on 04/08/17 unrevealing. - Stool toxin positive for C. diff, no profuse diarrhea, will start PO Vanco Encephalopathy, not POA. acute. Active - Patient manifesting new behavior with repeated words and phrases - Head CT pending, will consider MRI if results compelling or behavior persists - Etiology uncertain as other infectious parameters improving - Will continue Acute kidney injury, not present on admission - At [facility] was found to be 1.37. - Avoid nephrotoxic medications. - Continue with cautious IVF - Difficult to draw labs this morning. Followup repeat labs Acute Lactic Acidosis, present on admission, Resolved - Minimally elevated lactic acid 2.3 at [facility]. - Repeat lactic trending back to normal - Fluids as above. Fever and malaise, present on admission, ongoing. - Repeat daily blood cultures while spiking fevers - Followup pending cultures. 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 - Received 1 dose of Dalbavancin on 04/01/2017. - Patient was to schedule appointment with Cardiothoracic Surgeon Dr. Benji Dixon at [facility] to discuss possible valve replacement. Reported history of recent upper extremity DVT - Unclear whether patient has been taking apixaban, lovenox, or warfarin. Poor historian and likely that she has been taking nothing. Awaiting PT/INR. Chronic stable conditions Polysubstance abuse - Patient denies IV drug since discharge on 04/01/2017. - Urine drug screen at [facility] was positive for benzodiazepines. - Hepatitis C and HIV negative at last admission. Opioid dependence - Suboxone 16 mg daily. Depression and anxiety - Quetiapine 25 mg nightly Seizure disorder - Continue home topiramate 100 mg twice a day History of recurrent soft tissue infections - No physical exam findings to suggest current infection. Asthma - Albuterol when necessary. Insomnia - Continue ropinirole 1 mg nightly. Chronic pain - Gabapentin 600 mg twice a day Disposition: 2-3 days pending remaining afebrile and infection workup and treatment Pain Evaluation: Adequate Pain Control GI Prophylaxis: Not indicated VTE Prophylaxis: Sub-Q Enoxaparin Resuscitation Status: CPR: Attempt Resuscitation Attending Statement The patient was seen and examined together with Dr. Hidalgo on 04/10/17 and I agree with the history, exam and plan as outlined in the note above. Cricket Hidalgo DO Apr 10, 2017 12:00 David Sy Apr 10, 2017 16:43
[2017-04-10] MEDS: Vancomycin 125 mg Oral Capsule PO SCH ×2 (13:41→20:12)
--- NOTE | 2017-04-10 14:39 | DRSVH ---
PROCEDURE: MRI STROKE PROTOCOL ([id number]) Pre- and post-contrast brain MRI, non-contrast brain MR angiogram, pre- and postcontrast neck MR sadie ogram INDICATIONS: altered mental status. fever. TECHNIQUE: Brain: Noncontrast axial T1 spin echo, axial T2 fast spin echo, sagittal and axial FLAIR, coronal T2 fast spin echo, axial gradient echo, axial diffusion and ADC through the brain. After the administr ation of contrast, axial 3D VIBE of the cranial vasculature and brain. Brain MRA: Non-contrast 3-D time of flight MR angiogram, with multiple blfkygq-duqsajzil-odumlyxjnp (MIP) reformats performed. Neck MRA: Axial and sagittal TruFISP through the neck. Coronal dynamic MR angiogram during administ ration of contrast in the arterial and venous phases, with 3-dimenstional obsrnty-wpnajzlct-adhcayuwq n (MIP) reformats constructed from subtraction images. COMPARISON: [facility], CT, CT CHEST ABD PELVIS W CON, 04/08/2017, 17:33. [facility], CT, CT BRAIN WO CON, 02/17/2017, 1:38. FINDINGS: Image quality: Diagnostic, with mild motion artifact. BRAIN: CSF spaces: The ventricles are normal in size. Basal cisterns are patent. No extra-axial fluid binh ections. Brain: Diffusion-weighted images demonstrate no acute infarcts. No intracranial hemorrhage, mass, o r mass effect. De La Garza-white matter interface is preserved. Brainstem appears normal. Normal intravas cular flow voids are present. No abnormal intracranial enhancement. Skull and face: Calvarial marrow signal is normal. Orbits appear normal. Sinuses: There is minimal mucosal thickening within the ethmoid, maxillary and sphenoid sinuses. The mastoid air cells are clear. BRAIN MR ANGIOGRAM: Anterior circulation: Intracranial internal carotid arteries are patent bilaterally. The flow withi n the paired anterior cerebral arteries is patent bilaterally. The flow within the middle cerebral a rteries is patent bilaterally. The anterior communicating artery is visualized. No high-grade steno ses, occlusions, or aneurysms. Posterior circulation: The visualized portions of the vertebral arteries appear patent and join to f orm a patent basilar artery. The flow within the posterior cerebral arteries is patent bilaterally. No high-grade stenoses, occlusions, or aneurysms. NECK MR ANGIOGRAM: Carotids: Great vessels demonstrate conventional anatomy as they arise from the aortic arch. The or igins of the common carotid arteries appear patent. The calibers and courses of both common carotid arteries are normal. The bifurcation regions appear widely patent. The internal carotid arteries de monstrate normal course and caliber. Posterior circulation: The origins of the vertebral arteries appear patent. More superior portions of both vertebral arteries demonstrate normal course and caliber, and join to form a normal appearing basilar artery. Miscellaneous: Subclavian arteries appear patent. Pre-contrast images through the neck and upper th orax demonstrate bilateral pleural effusions. IMPRESSION: BRAIN MRI: 1. No acute intracranial abnormality. Specifically, no evidence of intracranial abscess. BRAIN MR ANGIOGRAM: 1. No focal stenosis or occlusion of the central intracranial arteries. NECK MR ANGIOGRAM: 1. No focal stenosis or occlusion of the head and neck arteries. 2. Bilateral pleural effusions partially visualized as seen on the recent CT of the chest abdomen an d pelvis. The estimate of stenosis included in the report of the imaging study was calculated using the NASCET method Dictated by: Sulaiman Haines M.D. on 04/10/2017 at 14:37 Approved by: Sulaiman Haines M.D. on 04/10/2017 at 14:37
--- NOTE | 2017-04-10 18:12 | NUR ---
Drowsy/Mentation The pt slept most of the day, and was difficult to arouse and keep aroused/engaged in conversations and care. MD's aware of the pt's mentation changes. Positive UA, blood and stool samples were resulted today - MD aware and Enteric Precautions are implemented per protocol. Will continue to monitor.
--- NOTE | 2017-04-10 23:04 | NUR ---
Neuro/tele/PO2 Was de satting on room air, placed NC @ 2 Liters, pt is responsive however inappropriate. repeating words said to her, repeating questions asked of her. neuro check , is unable to hold hands out flat in front of her, difficulty touching nose. Pupils alternately responsive and not responsive , knows she is in hospital , not sure which one exactly or what town it is in. knows who is president. Face and hands edematous, facial pallor. Diaphoretic yet declines a bath. Pt is on Q 4 neuro checks , Dr updated on O2 status. Tele , SR 78 Addendum: 04/11/17 at 0034 by MAIA URBINA RN Pupils both responsive to light on 2399 Neuro check, a change from the 1999 neuro check where both pupils were non responsive to light.
[2017-04-11] VITALS (9 sets, daily range): BP systolic 93–108; BP diastolic 46–75; PULSE 71–83; RESP 16–28; O2SAT 96–99
[2017-04-11] MEDS: Cefepime Inj 2,000 MG in Dextrose 5% Minibag Plus 100 ML IV SCH ×2 (00:08→10:17)
[2017-04-11] MEDS: Ondansetron 2 mg/mL 2 mL Inj IVPUSH PRN (01:36)
[2017-04-11] MEDS: Vancomycin 125 mg Oral Capsule PO SCH ×4 (01:36→21:12)
[2017-04-11 06:55] LABS: BASOPHILS % (AUTO) 0.3 % (0-3); EOSINOPHILS % (AUTO) 0.9 % (0-5); MONOCYTES % (AUTO) 6.5 % (4-12); Mean Corpuscular Hemoglobin 31.5 pg (27.0-35.0); NEUTROPHILS % (AUTO) 70.3 % (40-74); Platelet Count 175 bil/L (150-400)
[2017-04-11 07:05] LABS: INR 3.04 ratio
[2017-04-11 07:52] LABS: Magnesium 1.7 mg/dL (1.6-2.6); Phosphorus 3.2 mg/dL (2.5-4.9)
[2017-04-11] MEDS: Buprenorphine 2 mg SL Tablet SL SCH (08:30)
--- NOTE | 2017-04-11 09:52 | PCM.PHAPRO ---
Progress Fever and weakness WARFARIN Dosing: Indication: PE Home dose 5mg/d Date Apr 08Apr 09Apr 10Apr 11Apr 12Apr 13Apr 14Apr 15 INR 1.17 1.77 6.15 3.16 3.04 Warf Dose 5 1 HOLD HOLD 1 o/ INR on admit essentially baseline, ? compliance. Dramatic response to reported home dose of 5mg, INR now down-trending a/p/ One mg today and follow Naresh Corrales S Pharm D Apr 11, 2017 09:52
--- NOTE | 2017-04-11 10:22 | PROG NOTE ---
[address] [address] PROGRESS NOTE PATIENT: RAJANI ALSTON : 1990 MR#: [id number] ADMIT: 04/07/2017 JOB ID: [id number] DATE: 04/11/2017 REASON FOR FOLLOW UP: VRE bacteremia as well as C. diff in a patient with two recent episodes of MSSA endocarditis. INTERVAL HISTORY: Recall this is an extremely complex, 26-year-old woman, who had endocarditis with MSSA and septic pulmonary emboli back in June 2016. Following that discharge, she did well for about three months in drug rehab and was readmitted again with endocarditis in February. She spent six additional weeks with us for treatment of a second episode of MSSA endocarditis with large tricuspid vegetation and septic pulmonary emboli. Finally, she was discharged in mid March, having completed essentially six weeks of therapy. Because we could not find any IV for the last four days of therapy, we give her a single dose Dalbavancin in lieu of her last four days of intravenous beta lactam, but otherwise she completed therapy. The patient then returned to [facility] in [place] on April 06 with a high white count, hypotension, pyuria, and weakness. She did not have anything in the way of urinary tract symptomatology, but she did note subjective fever and chills which she said started about five days after her discharge from this facility. This was extremely confusing in that she would still have Dalbavancin on board, and she stated she had not used any drugs during her week out of the hospital between her discharge from six weeks of therapy here and the readmission on the . I had the opportunity to see the patient in consult on April 07, right after she was readmitted here, and then I have been out of town for the last three days. When I saw her on the , I thought this was probably not a continuation of her MSSA tricuspid valve endocarditis as she still had Dalbavancin on board, but we were concerned about possible complicated urinary tract infection. Since the time of her readmission, we have found out that the urine at the [place], as well as at this facility, are growing VRE. In addition, we now have a single positive blood culture here. Also note that over the weekend, the patient developed some loose stools which led to a stool for C. diff which was positive. The patient is now receiving IV cefepime as empiric therapy for possible new bacteremia, as well as oral vancomycin for her newly diagnosed C. diff. Over the weekend, the patient has had periods of confusion, which are new. This may coincide with the provision of some Seroquel. An MRI scan of the brain has been done and is negative. PHYSICAL EXAMINATION: Reveals a young woman who is reasonably oriented and can carry on a short conversation, but she was unable to tell me the year. She did know that Phyllis was the President and otherwise seemed somewhat up-to-date, but there may be some evidence of minimal confusion. The most questions are answered appropriately. She has been afebrile here since the when she was having spiking fevers above 39 degrees. Current temperature 37.3, pulse 82, respiratory rate 28, blood pressure 98/61, saturating well on room air. As noted, oriented times 2-1/2. Eyes without conjunctival hemorrhages. Her right face was apparently painful at one point, but I do not appreciate any abnormalities in the right neck at this point, nor in the right maxillary area. Her lungs are relatively clear. Cardiac tones still without murmur. Regular rate and rhythm. Abdomen is benign. LABORATORIES: Include white count 10,000 today. Normal diff interestingly. Platelets also normal 175. Creatinine was 0.[address] down to her baseline. AST is 59, ALT 52, alk phos 81. Procalcitonin was as high as 10.3 on the . It is now down to 2, in spite of the fact she has been receiving cefepime which would have no effect on VRE. Urinalysis here showed 6-10 white cells, which is not impressive. Streptozyme is pending. The stool PCR here positive for C. diff. One blood culture bottle is positive, and I spoke to the lab, and this appears to be an Enterococcus, but the PCR informal Vitek identification are pending. Urine did grow VRE. This was susceptible only to linezolid and quite resistant to all other tested agents. I have asked the lab to also test for daptomycin should we need to use that alone or in combination with other agents. IMAGING: Includes MRI of the brain, and MRA that were negative on the 24th. CT abdomen and pelvis I had requested on the showed much improved pulmonary cavitary lesions, some mild free fluid in the abdomen, and a low attenuation gallbladder. The right kidney looked a bit edematous with normal contrast enhancement, and the radiologist said they could not exclude renal inflammation. IMPRESSION: This is a case of bewildering complexity. This woman had methicillin-sensitive Staphylococcus aureus (MSSA) endocarditis, tricuspid valve endocarditis in June and in February, both times with septic pulmonary emboli. She just left this hospital in mid March and did great for about five days, remaining at her mom's house and remaining drug-free. She then developed fever and chills. Was evaluated at the [facility] and thought to have a urinary tract infection. She was transferred here and we now know that urine both at [place] and here is growing Enterococcus which is a VRE. In addition, we have a single positive blood culture which is of great concern given her highly abnormal tricuspid valve. We are waiting to see if this is also VRE, but we are deeply suspicious that it is. At this point, we have two possibilities, one is that she has developed a VRE urinary tract infection with a single positive blood culture, which will likely get better very quickly with some linezolid. The other possibility is that she has a VRE superinfection of her pre-existing large tricuspid valve vegetation which would be a life-threatening problem. The blood cultures from the [facility] on the are negative, though we have a single positive blood culture here that suggests to me this is probably and hopefully just a complicated urinary tract infection with one blood culture bottle positive. The patient also is now positive for Clostridium diff. Whether or not she has a significant Clostridium diff processes is hard to know, as we have really tallied very few stools here, and she may just be colonized, but in any event, it is reasonable to give her some oral therapy. RECOMMENDATIONS: 1. Oral vancomycin 125 q.i.d. for 10 days. 2. Linezolid 600 mg IV q.12 h. 3. If we lose the IV, the linezolid could then be switched to oral, and I do not see any indication to put in a PICC or any other permanent central line at this point. 4. Echocardiogram has been ordered. 5. This case was discussed with Dr. Patel of Cardiology [facility]
--- NOTE | 2017-04-11 11:14 | PCM.PNNEPH ---
Subjective Date of Service Apr 11, 2017 Subjective No fever overnight. Serum creatinine has been normalized. U/cx (+) VRE, linezolid just started by ID. Exam Vital Signs Vital Sign - Last Date Time Temp Pulse Resp B/P Pulse Ox O2 Delivery O2 Flow Rate FiO2 04/11/17 10:29 80 04/11/17 08:19 37.3 28 98/61 96 Room Air 04/11/17 00:13 2.00 Intake and Output 04/10/17 04/10/17 04/11/17 Cumulative From/Thru 15:00 23:00 07:00 04/07/17 00:54 - 04/11/17 06:36 Intake Total 646 ml 957 ml 71477 ml Output Total 401 ml 1400 ml 2951 ml Balance 245 ml -443 ml 33514 ml Intake Oral 300 ml 700 ml 5352 ml IV Total 346 ml 257 ml 02745 ml Output Urine Total 400 ml 900 ml 2450 ml Stool Total 1 ml 500 ml 501 ml # Voids 7 # Bowel Movements 2 Exam GENERAL: more alert during my visit, AAOX3 ([facility], 10am, Trump) NAD. HEENT: Normocephalic, atraumatic. Extraocular movements intact. No sinus tenderness. Oropharynx clear. Dry mucous membranes. NECK: Supple without lymph node. No JVD. No thyroid gland enlargement. CHEST: Clear and good breath sounds equally. No wheezing. No rhonchi. HEART: S1, S2. Regular rate and rhythm. ABDOMEN: Soft. Nontender. Nondistended. No organomegaly. EXTREMITIES: No cyanosis, clubbing or edema. Lab and Diagnostics Result Diagram: 04/11/17 0640 04/11/17 0640 Microbiology Blood cultures 2 drawn at [facility] on 04/06/2017. Repeat blood cultures and urine cultures pending X-Rays, CTs and MRIs X-RAY CHEST ONE VIEW, PORTABLE IMPRESSION: Decreasing cavitary pulmonary opacities when compared to prior examination. Dictated by: Delon LEYVA Interpreted: Angy Chang MD on 04/07/2017 at 12: 26 Approved by: Angy Chang M.D. on 04/07/2017 at 16:52 . Date of Service: 04/08/17 1505 PROCEDURE: CT CHEST, ABDOMEN AND PELVIS WTIH CONTRAST ([id number]) IMPRESSION: 1. Markedly improved appearance of previous pulmonary cavitary lesions. 2. Interval development of mild free fluid within the abdomen and pelvis. No visualized abscess. 3. Low attenuation appearance is present within the gallbladder fossa suggestive of fluid. However, superimposed gallbladder wall thickening cannot be excluded. If concern exists for gallbladder pathology, ultrasound is recommended for additional evaluation. 4. Persistent, slightly edematous appearance of the right kidney with normal contrast enhancement. As previously suggested, infection/inflammation cannot be excluded. Dictated by: Angy Chang M.D. on 04/08/2017 at 18:01 Approved by: Angy Chang M.D. on 04/08/2017 at 18:10 Plan Impression 1. PRISCILA secondary to acute pyelonephritis. -resolve. 2. VRE UTI. 3. C.diff colitis. 4. AG and nongap metabolic acidosis. 5. h/o tricuspid endocarditis complicated by septic emboli and infectious glomerulonephritis. Plan: Start the sodium bicarbonate 650 mg twice a day. Continue antibiotics per infectious disease. Renally dose medication. Avoid nephrotoxin. We will follow peripherally. Adal Garcia MD Apr 11, 2017 11:14
[2017-04-11] MEDS: Linezolid Inj 600 MG in IV Premix 1 EACH IV SCH ×2 (12:13→21:00)
--- NOTE | 2017-04-11 12:49 | DRSVH ---
[facility] [address] [place] [address] Echocardiogram Report Name: RAJANI ALSTON JStstephane Mirza e: 04/11/2017 Height: 168 in Hospital Exam Location: [facility] Weight: 63 lb Gender: Female BSA: 2.4 m2 : 1990 Age: 26 yrs BP: 98/6 1 mmHg Reason For Study: SEPSIS Ordering Physician: HOSPITALIST [facility] Performed By: Hanny Wisdom Referring Physician: Stevie Jean Interpretation Summary 1. Dilated right ventricle with normal systolic function. The estimated CVP is elevated at 15 mm Hg 2. There is a mass/vegetation appreciated on the tricuspid valve. There is severe associated tricuspid regurgitation 3. Small left ventricular cavity size with grossly normal left ventricular systolic function Compared to the previous study, the estimated right atrial pressure is now elevated. The RV may be more dilated Procedure: A two-dimensional transthoracic echocardiogram with color flow and Doppler was performed in limited views only. The study quality was technically adequate. Comparison is made with the echocardiogram of 03/31/17. The patient was in normal sinus rhythm during the exam. Left Ventricle: The left ventricular cavity is small. Grossly normal systolic function. Flattened septum is consistent with RV pressure/volume overload. Right Ventricle: The right ventricle is severely dilated. The right ventricular systolic function is normal. Atria: The right atrium is moderate to severely dilated. Tricuspid Valve: There is a large vegetation or mass on the tricuspid valve. Measures 3.3cm x 1.3cm Appears larger in size from prior echo. There is severe tricuspid regurgitation. RVSP underestimated due to severity of TR. Reversal of flow in hepatic veins. Pulmonic Valve: The pulmonic valve is not well seen, but is grossly normal. PV has bright echogenic spot on leaflet. Great Vessels: The IVC is dilated (diameter is greater than 2.1 cm) and it collapses less than 50% with a sniff. This suggests a high right atrial pressure of 15 mm Hg. Pericardium/ Pleura There is no pericardial effusion. There is no pleural effusion. MMode/2D Measurements & Calculations IVC diam: 3.2 cm RA long axis: 6.3 cm RA area: 27.1 cm RA vol: 99.2 ml RA : 41.2 ml/m2 RVD1 (basal): 5.1 cm RVD2 (mid): 4.6 cm Doppler Measurements & Calculations TR max robby: 185.8 cm/sec TR max P.8 mmHg Reading Physician:12:49 PM
--- NOTE | 2017-04-11 14:48 | PCM.PNMED ---
Subjective Date of Service Apr 11, 2017 Subjective Today the patient remains quite altered in her neurologic status. She will answer some questions appropriately, then will repeat that same answer to the next several questions in a somewhat bizarre affect. Her coordination in her right upper extremity remains impaired. No significant overnight events beyond above mentioned altered behavior. Exam Vital Signs Vital Sign - Last Date Time Temp Pulse Resp B/P Pulse Ox O2 Delivery O2 Flow Rate FiO2 04/11/17 13:14 77 22 93/61 96 Room Air 04/11/17 08:19 37.3 04/11/17 00:13 2.00 Intake and Output 04/10/17 04/10/17 04/11/17 Cumulative From/Thru 15:00 23:00 07:00 04/07/17 00:54 - 04/11/17 06:36 Intake Total 646 ml 957 ml 68018 ml Output Total 401 ml 1400 ml 2951 ml Balance 245 ml -443 ml 58854 ml Intake Oral 300 ml 700 ml 5352 ml IV Total 346 ml 257 ml 29283 ml Output Urine Total 400 ml 900 ml 2450 ml Stool Total 1 ml 500 ml 501 ml # Voids 7 # Bowel Movements 2 Exam Gen: A/O x2 cooperative young woman in NAD, cannot identify place beyond hospital, strange flat affect with altered mental status Neck: Supple, non tender, Full ROM HEENT: PERRL, EOMI, no scleral icterus, no conjunctival pallor, mild edema of right eye CV: RRR, no murmurs rubs or gallops Resp: Lungs CTA BL, no wheezing rales or rhonchi Abd: No rebound masses guarding or tenderness Extr: No clubbing cyanosis or edema Neuro: CN 2-12 grossly intact, right hand with impaired mobility and coordination Psych: Patient is clearly altered compared to baseline often repeating words and phrases, will answer some questions appropriately but then repeat that same answer to further questioning. IVs and Medications Medications Reviewed: Medications were reviewed in detail Lab and Diagnostics Item Value Date Time Red Blood Count 2.92 mil/mm3 L 04/11/17 0640 Mean Corpuscular Volume 99.0 fL 04/11/17 0640 Mean Corpuscular Hemoglobin 31.5 pg 04/11/17 0640 Mean Corpuscular Hemoglobin Concent 31.8 % L 04/11/17 0640 Red Cell Distribution Width 17.2 % H 04/11/17 0640 Neutrophils (%) (Auto) 70.3 % 04/11/17 0640 Lymphocytes (%) (Auto) 21.5 % 04/11/17 0640 Eosinophils (%) (Auto) 0.9 % 04/11/17 0640 Basophils (%) (Auto) 0.3 % 04/11/17 0640 Monocytes (%) (Auto) 6.5 % 04/11/17 0640 Estimat Glomerular Filtration Rate 123 mL/min 04/11/17 0640 Calcium Level 8.0 mg/dL L 04/11/17 0640 Phosphorus Level 3.2 mg/dL 04/11/17 0640 Magnesium Level 1.7 mg/dL 04/11/17 0640 Total Bilirubin 0.3 mg/dL 04/11/17 0640 Aspartate Amino Transf (AST/SGOT) 59 U/L H 04/11/17 0640 Alanine Aminotransferase (ALT/SGPT) 52 U/L H 04/11/17 0640 Alkaline Phosphatase 61 U/L 04/11/17 0640 Total Protein 6.2 g/dL L 04/11/17 0640 Albumin 2.8 g/dL L 04/11/17 0640 Procalcitonin 2.18 ng/mL H 04/11/17 0640 Result Diagram: 04/11/17 0640 04/11/17 0640 Microbiology Blood cultures 2 drawn at [facility] on 04/06/2017. Repeat blood cultures and urine cultures pending X-Rays, CTs and MRIs X-RAY CHEST ONE VIEW, PORTABLE IMPRESSION: Decreasing cavitary pulmonary opacities when compared to prior examination. Dictated by: Delon Pelayo [facility] Interpreted: Angy Chang MD on 04/07/2017 at 12: 26 Approved by: Angy Chang M.D. on 04/07/2017 at 16:52 . Date of Service: 04/08/17 1505 PROCEDURE: CT CHEST, ABDOMEN AND PELVIS WTIH CONTRAST ([id number]) IMPRESSION: 1. Markedly improved appearance of previous pulmonary cavitary lesions. 2. Interval development of mild free fluid within the abdomen and pelvis. No visualized abscess. 3. Low attenuation appearance is present within the gallbladder fossa suggestive of fluid. However, superimposed gallbladder wall thickening cannot be excluded. If concern exists for gallbladder pathology, ultrasound is recommended for additional evaluation. 4. Persistent, slightly edematous appearance of the right kidney with normal contrast enhancement. As previously suggested, infection/inflammation cannot be excluded. Dictated by: Angy Chang M.D. on 04/08/2017 at 18:01 Approved by: Angy Chang M.D. on 04/08/2017 at 18:10 Cardiac Echo Impressions Interpretation Summary 1. Dilated right ventricle with normal systolic function. The estimated CVP is elevated at 15 mm Hg 2. There is a mass/vegetation appreciated on the tricuspid valve. There is severe associated tricuspid regurgitation 3. Small left ventricular cavity size with grossly normal left ventricular systolic function Compared to the previous study, the estimated right atrial pressure is now elevated. The RV may be more dilated Reading Physician:12:49 PM . 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 Patient now manifesting troubling mental status changes with repeated words and phrases with uncoordinated repetitive actions. Possible Urinary tract infection, present on admission, active. - Patient transferred from [facility] due to concern that the patient may become septic. Stable at time of arrival. Urine culture from [facility] [place] suspicious for VRE - Review of past hospitalizations reveals urine cultures positive for Enterococcus faecalis and MSSA which were both pansensitive. - UA done at [facility] showed leukocyte esterase along with 10-14 white blood cells. - WBC of 19.9 with 78% neutrophils. - 1 dose of ceftriaxone given at [facility]. Initially changed to Cefepime per ID recommendations, now transitioned to Linezolid due to concerns over VRE - Urine growing enterococcus, suspicious for VRE Sepsis, POA, acute. Active - Patient with fevers, hypotension, tachycardia, and tachypnea - BP has stabilized without pressors - Abx as above - Will continue with cautious use of IVF given underlying cardiac status - Source likely UTI - CT chest/abd/pelvis on 9/22/17 unrevealing. - Stool toxin positive for C. diff, no profuse diarrhea, will start PO Vanco - As above urine Micro Suspicious for VRE, 1 blood culture growing the same with other cultures here and at [facility] [place] negative Encephalopathy, not POA. acute. Active - Patient manifesting new behavior with repeated words and phrases - Brain MRI normal - EEG pending - Will consider neurology consults pending results of EEG - Etiology uncertain as other infectious parameters improving - Will continue Acute kidney injury, not present on admission - At [facility] was found to be 1.37. - Avoid nephrotoxic medications. - Continue with cautious IVF - Difficult to draw labs this morning. Followup repeat labs Acute Lactic Acidosis, present on admission, Resolved - Minimally elevated lactic acid 2.3 at [facility]. - Repeat lactic trending back to normal - Fluids as above. Fever and malaise, present on admission, ongoing. - Repeat daily blood cultures while spiking fevers - Followup pending cultures. 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 - Received 1 dose of Dalbavancin on 04/01/2017. - Patient was to schedule appointment with Cardiothoracic Surgeon Dr. Benji Dixon at [facility] to discuss possible valve replacement. - Repeat ECHO with results as above, indicative of worsening right sided heart failure Chronic stable conditions Polysubstance abuse - Patient denies IV drug since discharge on 04/01/2017. - Urine drug screen at [facility] was positive for benzodiazepines. - Hepatitis C and HIV negative at last admission. Opioid dependence - Suboxone 16 mg daily. Depression and anxiety - Quetiapine 25 mg nightly Seizure disorder - Continue home topiramate 100 mg twice a day History of recurrent soft tissue infections - No physical exam findings to suggest current infection. Asthma - Albuterol when necessary. Insomnia - Continue ropinirole 1 mg nightly. Chronic pain - Gabapentin 600 mg twice a day Disposition: 2-3 days pending remaining afebrile and infection workup and treatment, may need further evaluation and placement consideration if mental status does not improve. Pain Evaluation: Adequate Pain Control GI Prophylaxis: Not indicated VTE Prophylaxis: Sub-Q Enoxaparin Resuscitation Status: CPR: Attempt Resuscitation Attending Statement The patient was seen and examined together with Dr. Hidalgo on 04/11/17 and I agree with the history, exam and plan as outlined in the note above. Cricket Hidalgo DO Apr 11, 2017 14:48 David Sy Apr 11, 2017 17:56
[2017-04-12] VITALS (7 sets, daily range): BP systolic 96–115; BP diastolic 57–74; PULSE 71–85; RESP 16–22; O2SAT 97–100
[2017-04-12] MEDS: Vancomycin 125 mg Oral Capsule PO SCH ×4 (04:24→21:16)
--- NOTE | 2017-04-12 05:10 | NUR ---
Neuro/Pain Pt able to hold arms out without dropping for first assessment but has been unable to do so for other assessments. Pt alert to self, place, confused on date and time. Pt will repeat words, and is slow to respond and does some word searching. Pt awakens easily when entering room. Pt c/o pain in her left arm 02/24, administered 975 Tylenol and effective. VSS and Tele SR
--- NOTE | 2017-04-12 07:34 | ABG ---
DateTimeAnalyzed 07:21:38 -_ pH ____7.438 - 7.320 7.420 pCO2 ___22.8__ -mmHg 41.0 51.0 pO2 206 -mmHg 24.0 40.0 HCO3- ___15.4__ -mmol/L 22.0 26.0 ABE ___-8.0__ -mmol/L -2.0 2.0 tHb ___10.0__ -g/dL 12.0 18.0 O2Hb ___97.7__ -% COHb ____4.0__ -% 1.5 MetHb ____0.0__ -% 0.4 1.5 sO2 __100.0__ -% 40.0 70.0 FIO2 ___21.0__ -% Drawn By lab - Date/Time Notified____ 07:34:00 -_ Notified By NB - Notified Whom ___RN/RAJWINDER - K+ ____2.8__ -mmol/L 3.5 5.0 tO2 ___14.0__ -Vol% Mitul test N/A -
[2017-04-12 07:39] LABS: BASOPHILS % (AUTO) 0.3 % (0-3); EOSINOPHILS % (AUTO) 1.2 % (0-5); MONOCYTES % (AUTO) 6.4 % (4-12); Mean Corpuscular Hemoglobin 31.9 pg (27.0-35.0); Mean Corpuscular Volume 96.9 fL (81-100); NEUTROPHILS % (AUTO) 66.1 % (40-74); Platelet Count 157 bil/L (150-400)
[2017-04-12 07:55] LABS: INR 2.09 ratio
[2017-04-12 08:08] LABS: Magnesium 1.6 mg/dL (1.6-2.6); Phosphorus 3.1 mg/dL (2.5-4.9)
[2017-04-12] MEDS: Buprenorphine 2 mg SL Tablet SL SCH (08:30)
[2017-04-12] MEDS ORDERED: Potassium Chloride 20 mEq SR Tablet PO ONE ×3 (08:40→16:00)
[2017-04-12] MEDS ORDERED: Potassium Chloride Inj 20 MEQ in Dextrose 5% 250 ML IV ONE (08:40)
[2017-04-12] MEDS: Linezolid Inj 600 MG in IV Premix 1 EACH IV SCH (09:19)
--- NOTE | 2017-04-12 11:17 | NUR ---
NUTRITION FOLLOW UP: ASSESS: 26 YO F admitted for sepsis with possible UTI. Pt has had poor PO intake X 5 days. Per notes, pt with altered mental status. PRISCILA secondary to acute pyelonephritis, resolved per notes. PMHX: Tricuspid valve staph endocarditis, IVDA (meth and heroin), PE, PNA, UTI's, gonorrhea, seizure disorder, major depression, joint sepsis from IVDA. LABS: Reviewed. K+ 2.9, Ca 8.2, ALT 42, Alb 2.8 MEDS:Reviewed. Coumadin. GI: BM x 2 (04/08). CURRENT WT: 76.3 kg, BMI 29.8 kg/m2, Admit wt: 67.7 kg, IBW: 52.3 kg, Unclear per EMR if pt has had significant wt loss as wt has been extremely variable over the past 1.5 years. Pt has also been edematous which could affect weight. DIET: General + supplements. PO intake 0-10% trays. ESTIMATED NEEDS: Calories: 1835-2850 kcal/day (25-30 kcal/kg BW) Protein: 68-81 g/day (1.0-1.2 g/ kg BW) NUTRITION DIAGNOSIS: 1) Inadequate oral intake related to chronic disease as evidenced by reported weakness prior to admit and history of endocarditis and IVD use - PERSISTS. NUTRITION INTERVENTION: 1) Continue current diet with supplements/snacks as ordered. 2) If pt unable to take any significant nutrition in the next 48 hours, consider nutrition support. MONITOR/EVALUATE: PO intake, diet tolerance, weight, GI, labs, nutrition status. Follow per high nutrition risk guidelines.
--- NOTE | 2017-04-12 11:38 | PCM.PNMED ---
Subjective Date of Service Apr 12, 2017 Subjective Having withheld the patient's psychotropic medications yesterday, Seroquel and Seboxone, the patient is much more alert and appropriate today. She continues to have some concerning neurological symptoms with weakness and some difficulty with repeating words and phrases; but was able to answer questions appropriately and even asked some questions germane to her care. No significant overnight events. Exam Vital Signs Vital Sign - Last Date Time Temp Pulse Resp B/P Pulse Ox O2 Delivery O2 Flow Rate FiO2 04/12/17 10:38 71 04/12/17 10:08 Supplement Oxygen 04/12/17 09:16 37.1 22 115/72 98 04/11/17 00:13 2.00 Intake and Output 04/11/17 04/11/17 04/12/17 Cumulative From/Thru 15:00 23:00 07:00 04/07/17 00:54 - 04/12/17 06:24 Intake Total 400 ml 1483 ml 79308 ml Output Total 2 ml 1300 ml 4253 ml Balance 398 ml 183 ml 33457 ml Intake Oral 400 ml 700 ml 6452 ml IV Total 783 ml 02675 ml Output Urine Total 2 ml 1300 ml 3752 ml Stool Total 501 ml # Voids 7 # Bowel Movements 2 Exam Gen: A/O x3 cooperative young woman in NAD, is still somewhat somnolent, but much more appropriate today Neck: Supple, non tender, Full ROM HEENT: PERRL, EOMI, no scleral icterus, no conjunctival pallor, mild edema of right eye CV: RRR, Harsh 3/6 systolic murmur best heart at L lower sternal border, no rubs or gallops Resp: Lungs CTA BL, no wheezing rales or rhonchi Abd: No rebound masses guarding or tenderness Extr: No clubbing cyanosis or edema Neuro: CN 2-12 grossly intact, right hand with impaired mobility and coordination Psych: Patient is much more cogent and appropriate today, she is still somewhat somnolent and confused but much improved. . IVs and Medications Medications Reviewed: Medications were reviewed in detail Lab and Diagnostics Result Diagram: 04/12/17 0710 04/12/17 0710 Microbiology Blood cultures [address] [facility] on 04/06/2017. Single blood culture and urine cultures growing enterococcus suspicious for VRE C.diff toxin demonstrated in stool. . X-Rays, CTs and MRIs X-RAY CHEST ONE VIEW, PORTABLE IMPRESSION: Decreasing cavitary pulmonary opacities when compared to prior examination. Dictated by: Delon Pelayo [facility] Interpreted: Angy Chang MD on 04/07/2017 at 12: 26 Approved by: Angy Chang M.D. on 04/07/2017 at 16:52 . Date of Service: 04/08/17 1505 PROCEDURE: CT CHEST, ABDOMEN AND PELVIS WTIH CONTRAST ([id number]) IMPRESSION: 1. Markedly improved appearance of previous pulmonary cavitary lesions. 2. Interval development of mild free fluid within the abdomen and pelvis. No visualized abscess. 3. Low attenuation appearance is present within the gallbladder fossa suggestive of fluid. However, superimposed gallbladder wall thickening cannot be excluded. If concern exists for gallbladder pathology, ultrasound is recommended for additional evaluation. 4. Persistent, slightly edematous appearance of the right kidney with normal contrast enhancement. As previously suggested, infection/inflammation cannot be excluded. Dictated by: Angy Chang M.D. on 04/08/2017 at 18:01 Approved by: Angy Chang M.D. on 04/08/2017 at 18:10 MRI STROKE PROTOCOL IMPRESSION: BRAIN MRI: 1. No acute intracranial abnormality. Specifically, no evidence of intracranial abscess. BRAIN MR ANGIOGRAM: 1. No focal stenosis or occlusion of the central intracranial arteries. NECK MR ANGIOGRAM: 1. No focal stenosis or occlusion of the head and neck arteries. 2. Bilateral pleural effusions partially visualized as seen on the recent CT of the chest abdomen and pelvis. The estimate of stenosis included in the report of the imaging study was calculated using the NASCET method Dictated by: Sulaiman Haines M.D. on 04/10/2017 at 14:37 . Cardiac Echo Impressions Interpretation Summary 1. Dilated right ventricle with normal systolic function. The estimated CVP is elevated at 15 mm Hg 2. There is a mass/vegetation appreciated on the tricuspid valve. There is severe associated tricuspid regurgitation 3. Small left ventricular cavity size with grossly normal left ventricular systolic function Compared to the previous study, the estimated right atrial pressure is now elevated. The RV may be more dilated Reading Physician:12:49 PM . 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 with fever and generalized malaise with reports of a UTI and sepsis. Patient now manifesting troubling mental status changes with repeated words and phrases with uncoordinated repetitive actions, this has improved since withholding her altering medications, which we will continue to do for the time being. Possible Urinary tract infection, present on admission, active. - Patient transferred from [facility] due to concern that the patient may become septic. Stable at time of arrival. Urine culture from [facility] [place] suspicious for VRE - Review of past hospitalizations reveals urine cultures positive for Enterococcus faecalis and MSSA which were both pansensitive. - UA done at [facility] showed leukocyte esterase along with 10-14 white blood cells. - WBC of 19.9 with 78% neutrophils. - 1 dose of ceftriaxone given at [facility]. Initially changed to Cefepime per ID recommendations, now transitioned to Linezolid due to concerns to cover VRE - Urine growing enterococcus, suspicious for VRE Sepsis, POA, acute. Active - Patient with fevers, hypotension, tachycardia, and tachypnea - BP has stabilized without pressors - Abx as above - Will continue with cautious use of IVF given underlying cardiac status - Source likely UTI - CT chest/abd/pelvis on 04/08/17 unrevealing. - Stool toxin positive for C. diff, no profuse diarrhea, will start PO Vanco - As above urine Micro Suspicious for VRE, 1 blood culture growing the same with other cultures here and at [facility] [place] negative Encephalopathy, not POA. acute. Active - Patient manifesting new behavior with repeated words and phrases - Brain MRI normal - EEG pending - Will consider neurology consults pending results of EEG - Etiology uncertain as other infectious parameters improving - Will continue Acute kidney injury, not present on admission - At [facility] was found to be 1.37. - Avoid nephrotoxic medications. - Continue with cautious IVF - Difficult to draw labs this morning. Followup repeat labs Acute Lactic Acidosis, present on admission, Resolved - Minimally elevated lactic acid 2.3 at [facility]. - Repeat lactic trending back to normal - Fluids as above. Fever and malaise, present on admission, ongoing. - Repeat daily blood cultures while spiking fevers - Followup pending cultures. 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 - Received 1 dose of Dalbavancin on 04/01/2017. - Patient was to schedule appointment with Cardiothoracic Surgeon Dr. Benji Dixon at [facility] to discuss possible valve replacement. - Repeat ECHO with results as above, indicative of worsening right sided heart failure Chronic stable conditions Polysubstance abuse - Patient denies IV drug since discharge on 04/01/2017. - Urine drug screen at [facility] was positive for benzodiazepines. - Hepatitis C and HIV negative at last admission. Opioid dependence - Suboxone 16 mg daily. Depression and anxiety - Quetiapine 25 mg nightly Seizure disorder - Continue home topiramate 100 mg twice a day History of recurrent soft tissue infections - No physical exam findings to suggest current infection. Asthma - Albuterol when necessary. Insomnia - Continue ropinirole 1 mg nightly. Chronic pain - Gabapentin 600 mg twice a day Disposition: 2-3 days pending remaining afebrile and infection workup and treatment, may need further evaluation and placement consideration if mental status does not improve. Pain Evaluation: Adequate Pain Control GI Prophylaxis: Not indicated VTE Prophylaxis: Sub-Q Enoxaparin Resuscitation Status: CPR: Attempt Resuscitation Attending Statement Patient has been seen and examined by myself with medical record specialist and agree with above history, physical, assessment and plan. Cricket Hidalgo DO Apr 12, 2017 11:38 Ese Amanda MD Apr 12, 2017 15:36
--- NOTE | 2017-04-12 12:02 | NUR ---
IDEAL OPTIONS FOLLOW UP: Scheduled patient appointment for Tuesday04/18/17 check in at 2PM for a 230PM appointment per BOTTLE WASHER and MD orders. Updated BOTTLE WASHER and she will update patient.
--- NOTE | 2017-04-12 14:11 | PCM.PHAPRO ---
Progress Fever and weakness WARFARIN Dosing: Indication: PE Home dose 5mg/d Date Apr 08Apr 09Apr 10Apr 11Apr 12Apr 13Apr 14Apr 15 INR 1.17 1.77 6.15 3.16 3.04 2.05 Warf Dose 5 1 HOLD HOLD 1 5 o/ INR dropped remarkably a/ Hypersensitivity to warfarin apparently abated Cause of dramatic rise in INR early this week remains unclear. p/ Give home dose and follow Naresh Corrales Pharm D Apr 12, 2017 14:11
--- NOTE | 2017-04-12 14:13 | PROG NOTE ---
[address] [address] PROGRESS NOTE PATIENT: RAJANI ALSTON : 1990 MR#: [id number] ADMIT: 04/07/2017 JOB ID: [id number] DATE: 04/12/2017 REASON FOR FOLLOWUP: VRE bacteremia, likely urinary source. INTERVAL HISTORY: Overnight, the patient reports she continues to feel weak. The patient reports she has no fevers or chills. She has had a bit of right upper quadrant pain. She states that she is eating and drinking without undue difficulty. PHYSICAL EXAMINATION: Reveals a woman who is afebrile, 37 degrees, pulse 71, respiratory rate 18, blood pressure 96/66. She is saturating well on room air. She appears reasonably comfortable but she continues to have some subtle mental status problems. She is oriented x3, knows current affairs but she has some trouble with word finding. She cannot do simple problems such as spell world backwards and occasionally gives repetitive answers to questions that would not be expected for a 26-year-old woman. Eyes without conjunctivitis. Lungs clear. Cardiac tones without new murmur. She has right-sided unilateral asterixis. Left side is benign. She has reasonable strength in her extremities. LABORATORIES: Include white count 11,000, which is quite stable. Normal diff. Creatinine 0.84. Albumin 2.8. C3-C4 normal. Rheumatoid factor negative. Streptozyme negative. Micro: Stool positive for C diff. Blood has VRE, as does urine culture. This is sensitive only to linezolid but we are awaiting a daptomycin susceptibility on the urine isolate. Echo report: The patient had a followup echocardiogram. It shows dilated right ventricle with a mass-like, 3 cm tricuspid valve vegetation associated with severe tricuspid regurg. Compared to the study done just a couple weeks ago, the estimated right ventricular pressure is now higher and the RV is more dilated. The vegetation currently measured at 3.3 cm, which is huge. 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 She is now readmitted only one week after her most recent discharge for endocarditis with infectious-sounding symptoms which raise concern about additional bacteremias. Surprisingly, the patient this time has vancomycin-resistant Enterococcus bacteremia which seems to have arisen from a complicated urinary tract infection. Recall that on readmission, she did have 6-10 white cells, which is not too impressive but perhaps compatible with her presumed diagnosis. Her course is complicated this time by encephalopathy which has been a problem during some earlier admissions, as well as the complete lack of any IV access. Fortunately, we have linezolid available which is 100% orally absorbed and has good activity against VRE. RECOMMENDATIONS: 1. We will switch the linezolid from IV to oral with a plan to continue it for at least two weeks. 2. The patient should be kept on board here to closely follow her in terms of her mental status until we are certain that she is back to baseline. 3. Repeat blood cultures need to be drawn today, if at all possible, to confirm clearance of the VRE. If the VRE does not readily clear her blood stream, we would have to seriously entertain the possibility of yet another endocarditis involving the tricuspid valve vegetation. 4. This patient may yet require cardiac surgery to repair or replace her tricuspid valve, but she now has a huge vegetation as well as very damaged right ventricle.
--- NOTE | 2017-04-12 16:39 | NUR ---
Day Shift The pt continued on Q4 Neuro checks today with marked improvement since yesterday. This evening, the pt is A&O x3, pupils are reacting quicker to light, volleyball assembler is stronger and her ability to perform self care is improving. No perseverating noted during the shift. The pt reports "feel way better than yesterday". IV therapy was unable to obtain IV access on the pt today; MD's aware. PICC access is contraindicated for this patient. Med's are to be converted to PO as able. The pt was able to get up and walk to the bathroom as a SBA, and is appropriately asking for help. VSS. Will continue to monitor.
[2017-04-13 03:06] VITALS: BP 103/68; PULSE 79; RESP 16; O2SAT 99
[2017-04-13] MEDS: Vancomycin 125 mg Oral Capsule PO SCH ×4 (03:28→21:05)
--- NOTE | 2017-04-13 05:00 | ABG ---
DateTimeAnalyzed 04:53:00 -_ pH ____7.389 - 7.350 7.450 pCO2 ___32.7__ -mmHg 35.0 45.0 pO2 ___79.3__ -mmHg 80.0 100 HCO3- ___19.3__ -mmol/L 22.0 26.0 ABE ___-4.5__ -mmol/L -2.0 2.0 tHb ___10.2__ -g/dL 12.0 18.0 O2Hb ___93.7__ -% COHb ____1.9__ -% 1.5 MetHb ____0.7__ -% 0.4 1.5 sO2 ___96.1__ -% 95.0 FIO2 ___21.0__ -% Drawn By AF - Date/Time Notified____ 04:59:00 -_ B 760 -mmHg tO2 ___13.6__ -Vol% Mitul test _Positive -
--- NOTE | 2017-04-13 05:41 | NUR ---
Mentation/Neuro Pt. a/o x3, denies pain or discomfort. Indicates feeling alot better overall. Neuro checks performed, strength WNL, PERRLA, fluent speech, and verbalizes needs. IV access continues to be unavailable, medications transferred to oral route. VSS. Tele:SR
[2017-04-13 07:34] VITALS: BP 101/66; PULSE 84; RESP 18; O2SAT 92
[2017-04-13 07:56] LABS: BASOPHILS % (AUTO) 0.2 % (0-3); Mean Corpuscular Hemoglobin 31.3 pg (27.0-35.0)
[2017-04-13 08:01] LABS: EOSINOPHILS % (AUTO) 0.9 % (0-5); MONOCYTES % (AUTO) 5.5 % (4-12); Mean Corpuscular Volume 96.9 fL (81-100); NEUTROPHILS % (AUTO) 61.7 % (40-74); Platelet Count 204 bil/L (150-400)
[2017-04-13 08:33] LABS: Magnesium 1.7 mg/dL (1.6-2.6); Phosphorus 3.3 mg/dL (2.5-4.9)
[2017-04-13] MEDS: Buprenorphine 2 mg SL Tablet SL SCH (08:52)
[2017-04-13] MEDS: Potassium Chloride 20 mEq SR Tablet PO SCH ×2 (08:54→21:05)
--- NOTE | 2017-04-13 09:13 | PROG NOTE ---
[address] [address] PROGRESS NOTE PATIENT: RAJANI ALSTON : 1990 MR#: [id number] ADMIT: 04/07/2017 JOB ID: [id number] DATE: 04/13/2017 REASON FOR FOLLOWUP: Bacteremic VRE pyelonephritis. INTERVAL HISTORY: The patient reports today she is feeling much improved. Yesterday, efforts were made to decrease her psychotropic meds because of her trouble with word finding and memory. This morning, the patient is much more alert and sharp. She denies any significant complaint this morning, and is looking forward to getting out of the hospital. She does state she is still weak though and not getting up much other than to go to the bathroom. She no longer has any fevers, chills, or sweats. No significant pulmonary symptoms or chest pain. No nausea, vomiting, diarrhea. PHYSICAL EXAMINATION: Reveals an afebrile woman. Temp 37.1, pulse 84, respiratory rate 18, blood pressure 101/66. She is saturating well on room air. In no acute distress. Her mental status is clear today. She is even able to solve word problems and do some mathematical work such as serial sevens without too much difficulty. Lungs are clear. Cardiac tones today actually with a 1/6 systolic murmur heard along the left lower sternal border. The abdomen is benign. No skin rash noted. LABORATORIES: Include a white count of 12,000, platelets 204. Creatinine 0.78. LFTs normal. Procalcitonin is down to 0.5 from a peak of 10.3 a few days ago, so an excellent response. Micro studies include the stool positive for C. diff. One positive blood culture from the for VRE which is daptomycin and linezolid susceptible, and the urine positive also for linezolid and daptomycin susceptible VRE also on the . The echocardiogram done on the shows the dilated right ventricle with a large 3.3 cm vegetation on the tricuspid valve and associated severe tricuspid regurgitation. IMPRESSION: This is a complex case of a young woman who has been treated twice in the past nine months for methicillin-sensitive Staphylococcus aureus (MSSA) endocarditis with tricuspid involvement and septic pulmonary emboli. Following her recent discharge, she came back with fevers, chills, and what appears to be a bacteremic VRE urinary tract infection. She is steadily improving now on oral linezolid. Also noted was a few loose stools and a positive C. diff PCR. The diarrhea resolved almost immediately, leading us to wonder whether or not it was truly a pathogen or whether she was strictly colonized. RECOMMENDATIONS: 1. The patient can be continued on linezolid for a total of 14 total days by the oral route. 2. Will continue with vancomycin 125 q.i.d. for a total of 10 days. 3. The patient could probably be discharged in the next day or two. 4. This case was discussed with Dr. Hidalgo. We will need to carefully consider her psychotropic drugs in view of the fact she will still be on linezolid for 10 days or so.
[2017-04-13 10:04] VITALS: PULSE 83
[2017-04-13 10:43] LABS: INR 3.46 ratio
[2017-04-13 12:10] VITALS: BP 97/56; PULSE 83; RESP 20; O2SAT 99
[2017-04-13] MEDS: LORazepam 1 mg Tablet PO PRN (13:55)
--- NOTE | 2017-04-13 15:47 | NUR ---
HR Pt's HR got up to 130's today while laying in bed. Went in to check in on the pt and she was crying because she thought she heard police officers outside the room and were here to arrest her. Explained that there were doctors rounding but no police officers. Pt then seemed to calm somewhat but asked for Ativan PO. Given and pt's HR returned to her normal 70's and resting.
--- NOTE | 2017-04-13 16:49 | PCM.PNMED ---
Subjective Date of Service Apr 13, 2017 Subjective Today the patient states that she feels very much better. She appears to be nearly recovered from her perplexing neurological symptoms that had manifested in the preceding days. She improved rapidly following discontinuation of Seroquel and Seboxone. At this time she has no focal complaints and is feeling like she is returning to her baseline compensated health. No significant overnight events. Exam Vital Signs Vital Sign - Last Date Time Temp Pulse Resp B/P Pulse Ox O2 Delivery O2 Flow Rate FiO2 04/13/17 12:10 36.9 83 20 97/56 99 Non-Rebreather 04/11/17 00:13 2.00 Intake and Output 04/12/17 04/12/17 04/13/17 Cumulative From/Thru 15:00 23:00 07:00 04/07/17 00:54 - 04/13/17 05:22 Intake Total 1040 ml 220 ml 44848 ml Output Total 800 ml 300 ml 5353 ml Balance 240 ml -80 ml 71319 ml Intake Oral 1040 ml 220 ml 7712 ml IV Total 15832 ml Output Urine Total 800 ml 300 ml 4852 ml Stool Total 501 ml # Voids 7 # Bowel Movements 1 0 3 Exam Gen: A/O x3 cooperative young woman in NAD Neck: Supple, non tender, Full ROM HEENT: PERRL, EOMI, no scleral icterus, no conjunctival pallor, mild edema of right eye has essentially resolved CV: RRR, Harsh 3/6 systolic murmur best heart at L lower sternal border, no rubs or gallops Resp: Lungs CTA BL, no wheezing rales or rhonchi Abd: No rebound masses guarding or tenderness Extr: No clubbing cyanosis or edema Neuro: CN 2-12 grossly intact, No focal neurologic deficit Psych: Pleasant and appropriate mood and affect . IVs and Medications Medications Reviewed: Medications were reviewed in detail Lab and Diagnostics Result Diagram: 04/13/1772704/13/17727 Microbiology Blood cultures 2 drawn at [facility] on 04/06/2017. Single blood culture and urine cultures growing enterococcus suspicious for VRE C.diff toxin demonstrated in stool. . X-Rays, CTs and MRIs X-RAY CHEST ONE VIEW, PORTABLE IMPRESSION: Decreasing cavitary pulmonary opacities when compared to prior examination. Dictated by: Delon LEYVA Interpreted: Angy Chang MD on 04/07/2017 at 12: 26 Approved by: Angy Chang M.D. on 04/07/2017 at 16:52 . Date of Service: 04/08/17 1505 PROCEDURE: CT CHEST, ABDOMEN AND PELVIS WTIH CONTRAST ([id number]) IMPRESSION: 1. Markedly improved appearance of previous pulmonary cavitary lesions. 2. Interval development of mild free fluid within the abdomen and pelvis. No visualized abscess. 3. Low attenuation appearance is present within the gallbladder fossa suggestive of fluid. However, superimposed gallbladder wall thickening cannot be excluded. If concern exists for gallbladder pathology, ultrasound is recommended for additional evaluation. 4. Persistent, slightly edematous appearance of the right kidney with normal contrast enhancement. As previously suggested, infection/inflammation cannot be excluded. Dictated by: Angy Chang M.D. on 04/08/2017 at 18:01 Approved by: Angy Chang M.D. on 04/08/2017 at 18:10 MRI STROKE PROTOCOL IMPRESSION: BRAIN MRI: 1. No acute intracranial abnormality. Specifically, no evidence of intracranial abscess. BRAIN MR ANGIOGRAM: 1. No focal stenosis or occlusion of the central intracranial arteries. NECK MR ANGIOGRAM: 1. No focal stenosis or occlusion of the head and neck arteries. 2. Bilateral pleural effusions partially visualized as seen on the recent CT of the chest abdomen and pelvis. The estimate of stenosis included in the report of the imaging study was calculated using the NASCET method Dictated by: Sulaiman Haines M.D. on 04/10/2017 at 14:37 . Cardiac Echo Impressions Interpretation Summary 1. Dilated right ventricle with normal systolic function. The estimated CVP is elevated at 15 mm Hg 2. There is a mass/vegetation appreciated on the tricuspid valve. There is severe associated tricuspid regurgitation 3. Small left ventricular cavity size with grossly normal left ventricular systolic function Compared to the previous study, the estimated right atrial pressure is now elevated. The RV may be more dilated Reading Physician:12:49 PM . Assessment & Plan 26-year-old female with past medical history significant for IV heroin and meth use causing MSSA tricuspid valve endocarditis with septic pulmonary emboli with recent completion of 6 weeks of antibiotic treatment on 04/01/2017 who presented to [facility] with fever and generalized malaise with reports of a UTI and sepsis. Patient did manifest troubling mental status changes with repeated words and phrases with uncoordinated repetitive actions, this has improved since withholding her altering medications, which we will continue to do for the time being. Possible Urinary tract infection, present on admission, active. - Patient transferred from [facility] due to concern that the patient may become septic. Stable at time of arrival. Urine culture [place] [facility] suspicious for VRE - Review of past hospitalizations reveals urine cultures positive for Enterococcus faecalis and MSSA which were both pansensitive. - UA done at [facility] showed leukocyte esterase along with 10-14 white blood cells. - WBC of 19.9 with 78% neutrophils. - 1 dose of ceftriaxone given at [facility]. Initially changed to Cefepime per ID recommendations, now transitioned to Linezolid due to concerns to cover VRE - Urine growing enterococcus, suspicious for VRE - Per ID recommendations Linezolid is the only viable drug in her case as she has essentially no IV access and it is the only PO drug which her infection has shown sensitivity towards - This imperative will have to be balanced with possible serotonergic effects of her psych meds Sepsis, POA, acute. Active - Patient with fevers, hypotension, tachycardia, and tachypnea - BP has stabilized without pressors - Abx as above - Will continue with cautious use of IVF given underlying cardiac status - Source likely UTI - CT chest/abd/pelvis on 04/08/17 unrevealing. - Stool toxin positive for C. diff, no profuse diarrhea, continue PO Vanco - As above urine Micro Suspicious for VRE, 1 blood culture growing the same with other cultures here and at [facility] negative Encephalopathy, not POA. acute. Improved - Patient manifesting new behavior with repeated words and phrases - Brain MRI normal - EEG pending - Will consider neurology consults pending results of EEG - Etiology uncertain as other infectious parameters improving - Patient has improved since Seroquel and Suboxone was discontinued, will continue to hold Acute kidney injury, not present on admission - At [facility] was found to be 1.37. - Avoid nephrotoxic medications. - Continue with cautious IVF - Difficult to draw labs this morning. Followup repeat labs Acute Lactic Acidosis, present on admission, Resolved - Minimally elevated lactic acid 2.3 at [facility]. - Repeat lactic trending back to normal - Fluids as above. Fever and malaise, present on admission, Improved - Repeat daily blood cultures while spiking fevers - Followup pending cultures. 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 - Received 1 dose of Dalbavancin on 04/01/2017. - Patient was to schedule appointment with Cardiothoracic Surgeon Dr. Benji Dixon at [facility] to discuss possible valve replacement. - Repeat ECHO with results as above, indicative of worsening right sided heart failure Chronic stable conditions Polysubstance abuse - Patient denies IV drug since discharge on 04/01/2017. - Urine drug screen at [facility] was positive for benzodiazepines. - Hepatitis C and HIV negative at last admission. Opioid dependence - Suboxone 16 mg daily has been held Depression and anxiety - Quetiapine 25 mg nightly has been held - Will consider psych consult to clarify what options may be available to us given necessity for Linezolid Seizure disorder - Continue home topiramate 100 mg twice a day History of recurrent soft tissue infections - No physical exam findings to suggest current infection. Asthma - Albuterol when necessary. Insomnia - Continue ropinirole 1 mg nightly. Chronic pain - Gabapentin 600 mg twice a day Disposition: 1-2 days pending remaining afebrile and infection workup and treatment, may need further evaluation and placement consideration if mental status does not improve. Pain Evaluation: Adequate Pain Control GI Prophylaxis: Not indicated VTE Prophylaxis: Sub-Q Enoxaparin Resuscitation Status: CPR: Attempt Resuscitation Time spent 20 minutes Attending Statement Patient has been seen and examined by myself with chief medical technologist and agree with above history, physical, assessment and plan. Cricket Hidalgo DO Apr 13, 2017 16:49 Ese Amanda MD Apr 13, 2017 17:14
--- NOTE | 2017-04-13 17:11 | NUR ---
Social Work: Readiness for Discharge/Multidisciplinary Rounds D: Pt discussed in multidisciplinary rounds; the patient's mentation is improving. Plan for the day is to start patient back on a lower dose of Suboxone to determine if the patient can tolerate this and/or if it may have been the source of her impairment. The patient has been transitioned to oral abx and will likely be ready for discharge tomorrow if she tolerates the lower dose of Suboxone. Patient has been made an appointment at [facility] for Tuesday04/18/17 at 2:00pm. Provider may need to contact [facility] to inform them of the patient's adjusted/discharge dose for Suboxone. RETAIL TRAINING MANAGER met with the patient briefly at bedside to review discharge plan. patient states she will be going to her moms. She identifies no discharge needs or concerns. A: Pt who is I at baseline and ambulating I during admission P: Anticipate patient to discharge home via POV once medically stable; RETAIL TRAINING MANAGER to continue to follow to assess for unmet discharge needs. BINA Kurtz
--- NOTE | 2017-04-13 17:58 | NUR ---
Warfarin Pt's INR is 3.46 today. 1mg Warfarin ordered for jas. Double checked with both MD and pharmacy before I gave it that it was to be given in deed with that INR. Administered 1 Mg Warfarin and will recheck INR tomorrow am.
[2017-04-13 20:55] VITALS: BP 128/92; PULSE 128; RESP 18; O2SAT 97
--- NOTE | 2017-04-13 20:56 | DRSVH ---
PROCEDURE: X-RAY CHEST ONE VIEW, PORTABLE ([id number]) INDICATIONS: possible pneumonia TECHNIQUE: One view of the chest was acquired. COMPARISON: [facility], CT, CT CHEST ABD PELVIS W CON, 04/08/2017, 17:33. [facility], CR, XR CHEST 1VW (PORTABLE), 04/07/2017, 12:01. FINDINGS: Surgical changes and devices: None. Lungs and pleura: No pleural effusions or pneumothorax. Midline bibasilar patchy airspace opacities present. Focal airspace opacity in the left upper lobe. Small pleural effusions. Mediastinum: Mediastinal contours appear normal. Heart size is normal. Bones and chest wall: No suspicious bony lesions. Overlying soft tissues appear unremarkable. IMPRESSION: 1. Bilateral airspace opacities and small effusion suspicious for aspiration or pneumonia. Dictated by: Delon LEYVA Interpreted: Angy Chang MD on 04/13/2017 at 8:50 Approved by: Angy Chang M.D. on 04/13/2017 at 20:53
--- NOTE | 2017-04-13 20:58 | DRSVH ---
PROCEDURE: US ABDOMEN INDICATIONS: abd pain TECHNIQUE: Real-time scanning was performed of the abdominal and retroperitoneal organs, with image documentatio n. COMPARISON: [facility], CT, CT CHEST ABD PELVIS W CON, 04/08/2017, 17:33. FINDINGS: Liver length: 16.0 cm Gallbladder Wall Thickness: 9.20 mm CBD: 3.20 mm Spleen length: 14.41 cm Right kidney length: 5.85 cm Left kidney length: 12.88 cm Aorta(Proximal): 1.77 cm Aorta(Mid): 1.32 cm Aorta(Distal): 1.55 cm Liver: Liver is diffusely increased in echogenicity. No focal hepatic abnormalities identified. No rmal hepatic size. Gallbladder: No gallstones. Gallbladder wall is thickened and edematous measuring 9 mm. Gallbladder wall cyst arises from the fundus of the gallbladder measuring 2.0 x 2.0 x 1.8 cm. Biliary ducts: Intrahepatic bile ducts are non-dilated. Extrahepatic bile duct caliber is normal. Normal is 6-7 mm or less in diameter, or 10 mm or less post-cholecystectomy. Pancreas: Visualized portions of the pancreas are sonographically normal. Spleen: Spleen is normal in size and homogeneous in echotexture. Kidneys: Kidneys are normal in size and echotexture. No hydronephrosis or nephrolithiasis. No jerod d masses. Aorta: Visualized aorta is normal in caliber at less than 3 cm. Iliacs: Not visualized. IVC: Intrahepatic inferior vena cava is patent. Miscellaneous: Bilateral pleural effusions are present and there is mild amount of ascites throughout the abdomen and pelvis. IMPRESSION: 1. Increased hepatic echogenicity noted likely related to fatty infiltration of the liver but other s ources of hepatocellular disease cannot be excluded. Recommend clinical correlation. 2. Thickened edematous gallbladder wall and cholecystitis cannot be excluded. Correlate clinically. 3. Gallbladder wall cyst measuring 2.0 cm. 4. Small pleural effusions and mild ascites. Dictated by: Delon LEYVA Interpreted: Angy Chang MD on 04/13/2017 at 9:49 Approved by: Angy Chang M.D. on 04/13/2017 at 20:55
[2017-04-13 23:52] VITALS: BP 102/69; PULSE 99; RESP 20; O2SAT 97
[2017-04-14] MEDS: Vancomycin 125 mg Oral Capsule PO SCH ×4 (02:27→21:10)
--- NOTE | 2017-04-14 06:37 | NUR ---
Febrile occurrence Pt. a/o, denies pain or discomfort. Up to shower after dinner. Pt. reported feeling chilled, and diaphoretic, vitals obtained. Temperature elevated to 102.9, 975mg Tylenol given. Temp. recheck @ 102.0, ([facility]) notified. Repeat vitals indicative for temp to baseline 98.9. Remained afebrile @ last assessment, and rested for extended period with eyes closed. Labs drawn, CXR complete - results pending. Report given to on coming RN.
[2017-04-14 07:32] LABS: BASOPHILS % (AUTO) 0.3 % (0-3); EOSINOPHILS % (AUTO) 0.5 % (0-5); MONOCYTES % (AUTO) 4.9 % (4-12); Mean Corpuscular Hemoglobin 31.1 pg (27.0-35.0); Mean Corpuscular Volume 95.7 fL (81-100); NEUTROPHILS % (AUTO) 73.8 % (40-74); Platelet Count 185 bil/L (150-400)
[2017-04-14 07:49] LABS: INR 4.25 ratio
[2017-04-14 08:37] LABS: Magnesium 1.8 mg/dL (1.6-2.6); Phosphorus 4.5 mg/dL (2.5-4.9)
[2017-04-14] MEDS: Potassium Chloride 20 mEq SR Tablet PO SCH ×2 (08:41→21:45)
[2017-04-14] MEDS: Buprenorphine 2 mg SL Tablet SL SCH (08:43)
[2017-04-14 08:45] VITALS: BP 104/78; PULSE 70; RESP 16; O2SAT 96
--- NOTE | 2017-04-14 09:20 | PROG NOTE ---
[address] [address] PROGRESS NOTE PATIENT: RAJANI ALSTON : 1990 MR#: [id number] ADMIT: 04/07/2017 JOB ID: [id number] DATE: 04/14/2017 REASON FOR FOLLOWUP: Tricuspid endocarditis with septic pulmonary emboli, bacteremic VRE complicated urinary tract infection, and C. difficile colitis. INTERVAL HISTORY: Overnight, the patient developed some high spiking fevers with chills. These were not accompanied by any new focal signs of infection. The patient specifically denies headache, sore throat, cough, shortness of breath, chest pain, nausea, vomiting, or diarrhea. She has no pain in any of her old peripheral IV sites, and she is unclear as to any possible source of infection. She also notes she has no swelling in her lower extremities and is able to ambulate without being breathless. PHYSICAL EXAMINATION: Reveals a very comfortable woman sitting up, breathing easily without any supplemental oxygen and speaking in full sentences. During the night her temperature is 39.4 with a pulse of 128. Her temperature now 37, pulse in the 90s, respiratory rate 20, blood pressure 102/69, saturating well on room air. The patient's mental status is completely clear and her problems with word finding and other cognitive tasks are now completely resolved. Her eyes are without abnormality. Lungs completely clear posteriorly. Cardiac tones regular rate and rhythm without appreciable murmur. Despite her striking echo findings. Her abdomen is soft and nontender and totally nontender in the right upper quadrant. She has no IV and no tenderness at any old IV site. No peripheral edema. LABORATORIES: Include a white count which has jumped to 15,000 though the diff remains entirely normal. Creatinine 0.78. LFTs normal except for an ALT of 35 which is actually improving. Procalcitonin was down to 0.5 yesterday from a peak of 10.3 suggesting resolution of a bacterial process. Urinalysis had scattered white cells on admission and grew VRE as did her blood. This VRE is susceptible to linezolid. Note that the patient also was stool positive for C. diff. Followup blood cultures on the are negative. IMAGING: Yesterday's imaging was reviewed. We looked at the chest x-ray on the computer. It shows left greater than right infiltrates which appear to be new with this is incomplete discordance with her pulmonary examination, which is . Her abdominal ultrasound done a couple days ago showed increased liver echogenicity as well as a thickened gallbladder wall and possible cholecystitis. Note that the gallbladder wall was 9 mm thick, normal is 6 to 7. No other notable radiographic findings. IMPRESSION: This continues to be an extremely complex case. 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 She is readmitted on this occasion just within days of her discharge following completion of her therapy for her second and most recent course of methicillin sensitive Staphylococcus aureus endocarditis. On this admission she had mild pyuria with changes suggestive of pyelonephritis and blood and urine growing VRE. She seems to have responded clinically to linezolid, but now has unexplained spiking recrudescent fevers. She has also has Clostridium difficile which we are treating with oral vancomycin. The nature of her fevers is unexplained. Her fevers could be due to endocarditis which we have failed to cure because of a large vegetation though it seems a bit unlikely as she is still on some residual dalbavancin from an earlier dose last week as well as on linezolid at this time. It is also possible she has an aspiration pneumonia as suggested by her chest x-ray, but she has no symptoms or physical findings whatsoever to go along with pneumonia. A brewing gallbladder disease is possible, but she has no right upper quadrant tenderness, nausea or vomiting. Her LFTs are not bad. The final possibility could be failure to resolve her VRE pyelonephritis but she has now been on linezolid for several days and that seems unlikely. At this point, no matter what the cause of recrudescent high fever is, we need to keep her and observe her until these fevers are resolve. If the fevers persist without any evident explanation than they are almost certainly due to the endocarditis and we need to reconsider valve replacement surgery. RECOMMENDATIONS: 1. Continue oral linezolid. 2. We await today's LFTs which are pending. 3. We await the follow up blood cultures. 4. Will continue to closely follow this patient with you. For temperatures over 38 degrees, I would obtain two sets of blood cultures in the hopes of capturing an organism which could tip our hand towards a valve replacement surgery if it was MSSA.
[2017-04-14] MEDS: LORazepam 1 mg Tablet PO PRN (12:44)
--- NOTE | 2017-04-14 14:30 | NUR ---
NUTRITION FOLLOW UP: ASSESS: 26 YO F admitted for sepsis with possible UTI. Pts mental status is much improved and with improved mentation her appetite has improved. Her PO intake over the last 2 days has been 75-100% of meals. PMHX: Tricuspid valve staph endocarditis, IVDA (meth and heroin), PE, PNA, UTI's, gonorrhea, seizure disorder, major depression, joint sepsis from IVDA. LABS: Reviewed. Bun 5, Ca 8.4, Alb 2.9 MEDS: Reviewed. GI: BM x 1 (04/13). CURRENT WT: 76.9 kg, BMI 30.0 kg/m2, Admit wt: 67.7 kg, IBW: 52.3 kg, Unclear per EMR if pt has had significant wt loss as wt has been extremely variable over the past 1.5 years. Pt has also been edematous which could affect weight. DIET: General + supplements. PO intake 0-100% trays. ESTIMATED NEEDS: Calories: 7408-2301 kcal/day (25-30 kcal/kg BW) Protein: 68-81 g/day (1.0-1.2 g/ kg BW) NUTRITION DIAGNOSIS: 1) Inadequate oral intake related to chronic disease as evidenced by reported weakness prior to admit and history of endocarditis and IVD use - IMPROVING NUTRITION INTERVENTION: 1) Continue current diet. Supplements adjusted per pt preference. Will send 2 milks on all trays and Vanilla Ensure on L tray. MONITOR/EVALUATE: PO intake, diet tolerance, weight, GI, labs, nutrition status. Follow per moderate nutrition risk guidelines.
--- NOTE | 2017-04-14 14:40 | DRSVH ---
PROCEDURE: X-RAY CHEST ONE VIEW, PORTABLE ([id number]) INDICATIONS: CHF TECHNIQUE: One view of the chest was acquired. COMPARISON: [facility], CR, XR CHEST 1VW (PORTABLE), 04/13/2017, 5:29. FINDINGS: Surgical changes and devices: None. Lungs and pleura: Patchy bilateral airspace opacities appear slightly decreased, most notably involvi ng the left lung base. Small right pleural effusion persists. Mediastinum: Mediastinal contours appear normal. Heart size is normal. Bones and chest wall: No suspicious bony lesions. Overlying soft tissues appear unremarkable. IMPRESSION: Slight decrease in bilateral patchy airspace opacities and small right pleural effusion r edemonstrated. Dictated by: Delon Pelayo RRA Interpreted: Sharon Ospina MD on 04/14/2017 at 9:38 Approved by: Sharon Ospina M.D. on 04/14/2017 at 14:38
--- NOTE | 2017-04-14 15:11 | DRSVH ---
PROCEDURE: X-RAY CHEST, TWO VIEWS ([id number]) INDICATIONS: fever TECHNIQUE: 2 views of the chest were acquired. COMPARISON: [facility], CR, XR CHEST 1VW (PORTABLE), 04/14/2017, 6:09[facility], [facility] CHEST 1VW (PORTABLE), 04/13/2017, 5:29. [facility], CR, XR CHEST 2VW, 2016, 19:48. FINDINGS: Surgical changes and devices: None. Lungs and pleura: Patchy bilateral airspace opacities and small right pleural effusion similar to tien or examination. Mediastinum: Mediastinal contours are normal. Heart size is normal. Bones and chest wall: No suspicious bony abnormalities. Soft tissues appear unremarkable. IMPRESSION: Bilateral patchy opacities and small pleural effusion similar to prior examination consis tent with pneumonia. Short interval followup recommended. Dictated by: Delon LEYVA Interpreted: Mariposa Nixon MD on 04/14/2017 at 10:44 Approved by: Mariposa Nixon M.D. on 04/14/2017 at 15:09
--- NOTE | 2017-04-14 16:15 | PCM.PNMED ---
Subjective Date of Service Apr 14, 2017 Subjective Today that patient states that she feels very much better today, she is concerned about the fevers and chills she experienced last evening. She states that she is otherwise well, she denies chest pain, SOB, nausea, vomiting, or diarrhea. Overnight the patient manifested significant fevers, responsive to Tylenol. Exam Vital Signs Vital Sign - Last Date Time Temp Pulse Resp B/P Pulse Ox O2 Delivery O2 Flow Rate FiO2 04/14/17 08:45 36.4 70 16 104/78 96 Room Air 04/11/17 00:13 2.00 Intake and Output 04/13/17 04/13/17 04/14/17 Cumulative From/Thru 15:00 23:00 07:00 04/07/17 00:54 - 04/14/17 06:49 Intake Total 800 ml 760 ml 51357 ml Output Total 1000 ml 700 ml 7053 ml Balance -200 ml 60 ml 50984 ml Intake Oral 800 ml 760 ml 9272 ml IV Total 45088 ml Output Urine Total 1000 ml 700 ml 6552 ml Stool Total 501 ml # Voids 7 # Bowel Movements 1 4 Exam Gen: A/O x3 cooperative young woman in NAD Neck: Supple, non tender, Full ROM HEENT: PERRL, EOMI, no scleral icterus, no conjunctival pallor, mild edema of right eye has essentially resolved CV: RRR, Harsh 3/6 systolic murmur best heart at L lower sternal border, no rubs or gallops Resp: Lungs CTA BL, no wheezing rales or rhonchi Abd: No rebound masses guarding or tenderness Extr: No clubbing cyanosis or edema Neuro: CN 2-12 grossly intact, No focal neurologic deficit Psych: Pleasant and appropriate mood and affect . Lab and Diagnostics Item Value Date Time Red Blood Count 3.51 mil/mm3 L 04/14/17714 Mean Corpuscular Volume 95.7 fL 04/14/17714 Mean Corpuscular Hemoglobin 31.1 pg 04/14/17714 Mean Corpuscular Hemoglobin Concent 32.4 % 04/14/17714 Red Cell Distribution Width 18.5 % H 04/14/17714 Neutrophils (%) (Auto) 73.8 % 04/14/17714 Lymphocytes (%) (Auto) 20.2 % 9/28/17 0715 Monocytes (%) (Auto) 4.9 % 04/14/17 07 Eosinophils (%) (Auto) 0.5 % 04/14/17 07 Basophils (%) (Auto) 0.3 % 04/14/17714 Estimat Glomerular Filtration Rate 138 mL/min 04/14/17714 Calcium Level 8.4 mg/dL L 04/14/17714 Phosphorus Level 4.5 mg/dL 04/14/17714 Magnesium Level 1.8 mg/dL 04/14/17714 Total Bilirubin 0.3 mg/dL 04/14/17714 Aspartate Amino Transf (AST/SGOT) 21 U/L 04/14/17 07 Alanine Aminotransferase (ALT/SGPT) 24 U/L 04/14/17 07 Alkaline Phosphatase 63 U/L 04/14/17714 Total Protein 6.2 g/dL L 04/14/17714 Albumin 2.9 g/dL L 04/14/17714 Procalcitonin 1.15 ng/mL H 04/14/17714 Result Diagram: 04/14/1771404/14/17714 Microbiology Blood cultures 2 drawn at [facility] on 04/06/2017. Single blood culture and urine cultures growing enterococcus suspicious for VRE C.diff toxin demonstrated in stool. . X-Rays, CTs and MRIs X-RAY CHEST ONE VIEW, PORTABLE IMPRESSION: Decreasing cavitary pulmonary opacities when compared to prior examination. Dictated by: Delon Pelayo [facility] Interpreted: Angy Chang MD on 04/07/2017 at 12: 26 Approved by: Angy Chang M.D. on 04/07/2017 at 16:52 . Date of Service: 04/08/17 1505 PROCEDURE: CT CHEST, ABDOMEN AND PELVIS WTIH CONTRAST ([id number]) IMPRESSION: 1. Markedly improved appearance of previous pulmonary cavitary lesions. 2. Interval development of mild free fluid within the abdomen and pelvis. No visualized abscess. 3. Low attenuation appearance is present within the gallbladder fossa suggestive of fluid. However, superimposed gallbladder wall thickening cannot be excluded. If concern exists for gallbladder pathology, ultrasound is recommended for additional evaluation. 4. Persistent, slightly edematous appearance of the right kidney with normal contrast enhancement. As previously suggested, infection/inflammation cannot be excluded. Dictated by: Angy Chang M.D. on 04/08/2017 at 18:01 Approved by: Angy Chang M.D. on 04/08/2017 at 18:10 MRI STROKE PROTOCOL IMPRESSION: BRAIN MRI: 1. No acute intracranial abnormality. Specifically, no evidence of intracranial abscess. BRAIN MR ANGIOGRAM: 1. No focal stenosis or occlusion of the central intracranial arteries. NECK MR ANGIOGRAM: 1. No focal stenosis or occlusion of the head and neck arteries. 2. Bilateral pleural effusions partially visualized as seen on the recent CT of the chest abdomen and pelvis. The estimate of stenosis included in the report of the imaging study was calculated using the NASCET method Dictated by: Sulaiman Haines M.D. on 04/10/2017 at 14:37 . Cardiac Echo Impressions Interpretation Summary 1. Dilated right ventricle with normal systolic function. The estimated CVP is elevated at 15 mm Hg 2. There is a mass/vegetation appreciated on the tricuspid valve. There is severe associated tricuspid regurgitation 3. Small left ventricular cavity size with grossly normal left ventricular systolic function Compared to the previous study, the estimated right atrial pressure is now elevated. The RV may be more dilated Reading Physician:12:49 PM . Assessment & Plan 26-year-old female with past medical history significant for IV heroin and meth use causing MSSA tricuspid valve endocarditis with septic pulmonary emboli with recent completion of 6 weeks of antibiotic treatment on 04/01/2017 who presented to [facility] with fever and generalized malaise with reports of a UTI and sepsis. Patient did manifest troubling mental status changes with repeated words and phrases with uncoordinated repetitive actions, this has improved since withholding her altering medications, which we will continue to do for the time being. Of concern on 04/14 the patient manifested significant fever overnight, and did have an increase in her procalcitonin the following morning which had been decreasing substantially every day. Concern for recurrent of her endocarditis. Possible Urinary tract infection, present on admission, active. - Patient transferred from [facility] due to concern that the patient may become septic. Stable at time of arrival. Urine culture from [facility] confirmed as VRE - 1 dose of ceftriaxone given at [facility]. Initially changed to Cefepime per ID recommendations, now transitioned to Linezolid due to concerns to cover VRE - Urine growing VRE - Per ID recommendations Linezolid is the only viable drug in her case as she has essentially no IV access and it is the only PO drug which her infection has shown sensitivity towards - This imperative will have to be balanced with possible serotonergic effects of her psych meds Sepsis, POA, acute. Resolved - Patient with fevers, hypotension, tachycardia, and tachypnea - BP has stabilized without pressors - Abx as above - Will continue with cautious use of IVF given underlying cardiac status - Source likely UTI - CT chest/abd/pelvis on 04/08/17 unrevealing. - Stool toxin positive for C. diff, no profuse diarrhea, continue PO Vanco - As above urine Micro positive for VRE, 1 blood culture growing the same with other cultures here and at [facility] negative - Per ID patient must be afebrile for 48 hrs prior to DC Encephalopathy, not POA. acute. Improved - Patient manifesting new behavior with repeated words and phrases - Brain MRI normal - EEG pending - Will consider neurology consults pending results of EEG - Etiology uncertain as other infectious parameters improving - Patient has improved since Seroquel and Suboxone was discontinued, will continue to hold Acute kidney injury, not present on admission - At [facility] was found to be 1.37. - Avoid nephrotoxic medications. - Continue with cautious IVF - Difficult to draw labs this morning. Followup repeat labs Acute Lactic Acidosis, present on admission, Resolved - Minimally elevated lactic acid 2.3 at [facility]. - Repeat lactic trending back to normal - Fluids as above. Fever and malaise, present on admission, Improved - Repeat daily blood cultures while spiking fevers - Followup pending cultures. 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 - Received 1 dose of Dalbavancin on 04/01/2017. - Patient was to schedule appointment with Cardiothoracic Surgeon Dr. Benji Dixon at [facility] to discuss possible valve replacement. - Repeat ECHO with results as above, indicative of worsening right sided heart failure Chronic stable conditions Polysubstance abuse - Patient denies IV drug since discharge on 04/01/2017. - Urine drug screen at [facility] was positive for benzodiazepines. - Hepatitis C and HIV negative at last admission. Opioid dependence - Suboxone 16 mg daily has been held Depression and anxiety - Quetiapine 25 mg nightly has been held - Will consider psych consult to clarify what options may be available to us given necessity for Linezolid Seizure disorder - Continue home topiramate 100 mg twice a day History of recurrent soft tissue infections - No physical exam findings to suggest current infection. Asthma - Albuterol when necessary. Insomnia - Continue ropinirole 1 mg nightly. Chronic pain - Gabapentin 600 mg twice a day Disposition: 2-3 days pending remaining afebrile and infection workup and treatment(patient must be afebrile 48hrs before DC). Risk for decompensation given poor baseline health and new infectious indicators Pain Evaluation: Adequate Pain Control GI Prophylaxis: Not indicated VTE Prophylaxis: Sub-Q Enoxaparin Resuscitation Status: CPR: Attempt Resuscitation Time spent 20 minutes Attending Statement Patient has been seen and examined by myself with medical recruiter and agree with above history, physical, assessment and plan. Cricket Hidalgo DO Apr 14, 2017 16:15 Ese Amanda MD Apr 15, 2017 06:50
[2017-04-14 18:09] VITALS: BP 110/75; PULSE 78; RESP 16; O2SAT 98
[2017-04-14 21:14] VITALS: BP 118/73; PULSE 63; RESP 20; O2SAT 97
[2017-04-15] MEDS: Vancomycin 125 mg Oral Capsule PO SCH ×4 (02:52→21:04)
[2017-04-15 02:55] VITALS: BP 103/76; PULSE 78; RESP 20; O2SAT 96
[2017-04-15 04:08] LABS: BASOPHILS % (AUTO) 0.2 % (0-3); EOSINOPHILS % (AUTO) 1.8 % (0-5); MONOCYTES % (AUTO) 4.7 % (4-12); Mean Corpuscular Hemoglobin 31.7 pg (27.0-35.0); Mean Corpuscular Volume 96.8 fL (81-100); NEUTROPHILS % (AUTO) 53.3 % (40-74); Platelet Count 180 bil/L (150-400)
[2017-04-15 04:58] LABS: INR 2.41 ratio
[2017-04-15 05:01] LABS: Magnesium 1.9 mg/dL (1.6-2.6); Phosphorus 3.9 mg/dL (2.5-4.9)
--- NOTE | 2017-04-15 06:25 | NUR ---
Afebrile/Rest Pt. a/o, denies pain or discomfort. Remained afebrile throughout shift. Was able to rest quietly throughout shift, with eyes closed. Indicates being hopeful for d/c home today. VSS. No Tele. Indicates no further needs at this time.
[2017-04-15 09:44] VITALS: BP 96/66; PULSE 88; O2SAT 95
[2017-04-15] MEDS: Buprenorphine 2 mg SL Tablet SL SCH (09:47)
--- NOTE | 2017-04-15 11:49 | PCM.PNMED ---
Subjective Date of Service Apr 15, 2017 Subjective Patient states that she feels very much better compared to admission today. She denies chest pain, SOB, nausea, vomiting, or confusion. Overnight the patient remained afebrile. Exam Vital Signs Vital Sign - Last Date Time Temp Pulse Resp B/P Pulse Ox O2 Delivery O2 Flow Rate FiO2 04/15/17 09:44 36.8 88 96/66 95 Room Air 04/15/17 02:55 20 04/11/17 00:13 2.00 Intake and Output 04/14/17 04/14/17 04/15/17 Cumulative From/Thru 15:00 23:00 07:00 04/07/17 00:54 - 04/15/17 06:07 Intake Total 536 ml 0 ml 76635 ml Output Total 500 ml 675 ml 8228 ml Balance 36 ml -675 ml 36175 ml Intake Oral 536 ml 0 ml 9808 ml IV Total 03399 ml Output Urine Total 500 ml 675 ml 7727 ml Stool Total 501 ml # Voids 1 8 # Bowel Movements 0 0 4 Exam Gen: A/O x3 cooperative young woman in NAD, affect and demeanor much improved since admission Neck: Supple, non tender, Full ROM HEENT: PERRL, EOMI, no scleral icterus, no conjunctival pallor, mild edema of right eye has essentially resolved CV: RRR, Harsh 3/6 systolic murmur best heart at L lower sternal border, no rubs or gallops Resp: Lungs CTA BL, no wheezing rales or rhonchi Abd: No rebound masses guarding or tenderness Extr: No clubbing cyanosis or edema Neuro: CN 2-12 grossly intact, No focal neurologic deficit Psych: Pleasant and appropriate mood and affect IVs and Medications Medications Reviewed: Medications were reviewed in detail Lab and Diagnostics Item Value Date Time Red Blood Count 3.41 mil/mm3 L 04/15/17 034 Mean Corpuscular Volume 96.8 fL 04/15/17 034 Mean Corpuscular Hemoglobin 31.7 pg 04/15/17 034 Mean Corpuscular Hemoglobin Concent 32.7 % 04/15/17 034 Red Cell Distribution Width 18.9 % H 04/15/17 0340 Neutrophils (%) (Auto) 53.3 % 04/15/17 034 Lymphocytes (%) (Auto) 39.4 % 04/15/17 034 Monocytes (%) (Auto) 4.7 % 04/15/17 034 Eosinophils (%) (Auto) 1.8 % 04/15/17339 Basophils (%) (Auto) 0.2 % 04/15/17339 Estimat Glomerular Filtration Rate 152 mL/min 04/15/17339 Calcium Level 8.9 mg/dL 04/15/17339 Phosphorus Level 3.9 mg/dL 04/15/17339 Magnesium Level 1.9 mg/dL 04/15/17 034 Total Bilirubin 0.2 mg/dL 04/15/17339 Aspartate Amino Transf (AST/SGOT) 17 U/L 04/15/17 034 Alanine Aminotransferase (ALT/SGPT) 22 U/L 04/15/17339 Alkaline Phosphatase 62 U/L 04/15/17339 Total Protein 6.6 g/dL 04/15/17 034 Albumin 3.0 g/dL L 04/15/17339 Result Diagram: 04/15/1733904/15/17339 Microbiology Blood cultures 2 drawn at [facility] on 04/06/2017. Single blood culture and urine cultures growing enterococcus suspicious for VRE C.diff toxin demonstrated in stool. . X-Rays, CTs and MRIs X-RAY CHEST ONE VIEW, PORTABLE IMPRESSION: Decreasing cavitary pulmonary opacities when compared to prior examination. Dictated by: Delon Pelayo [facility] Interpreted: Angy Chang MD on 04/07/2017 at 12: 26 Approved by: Angy Chang M.D. on 04/07/2017 at 16:52 . Date of Service: 04/08/17 1505 PROCEDURE: CT CHEST, ABDOMEN AND PELVIS WTIH CONTRAST ([id number]) IMPRESSION: 1. Markedly improved appearance of previous pulmonary cavitary lesions. 2. Interval development of mild free fluid within the abdomen and pelvis. No visualized abscess. 3. Low attenuation appearance is present within the gallbladder fossa suggestive of fluid. However, superimposed gallbladder wall thickening cannot be excluded. If concern exists for gallbladder pathology, ultrasound is recommended for additional evaluation. 4. Persistent, slightly edematous appearance of the right kidney with normal contrast enhancement. As previously suggested, infection/inflammation cannot be excluded. Dictated by: Angy Chang M.D. on 04/08/2017 at 18:01 Approved by: Angy Chang M.D. on 04/08/2017 at 18:10 MRI STROKE PROTOCOL IMPRESSION: BRAIN MRI: 1. No acute intracranial abnormality. Specifically, no evidence of intracranial abscess. BRAIN MR ANGIOGRAM: 1. No focal stenosis or occlusion of the central intracranial arteries. NECK MR ANGIOGRAM: 1. No focal stenosis or occlusion of the head and neck arteries. 2. Bilateral pleural effusions partially visualized as seen on the recent CT of the chest abdomen and pelvis. The estimate of stenosis included in the report of the imaging study was calculated using the NASCET method Dictated by: Sulaiman Haines M.D. on 04/10/2017 at 14:37 . Cardiac Echo Impressions Interpretation Summary 1. Dilated right ventricle with normal systolic function. The estimated CVP is elevated at 15 mm Hg 2. There is a mass/vegetation appreciated on the tricuspid valve. There is severe associated tricuspid regurgitation 3. Small left ventricular cavity size with grossly normal left ventricular systolic function Compared to the previous study, the estimated right atrial pressure is now elevated. The RV may be more dilated Reading Physician:12:49 PM . 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 Patient did manifest troubling mental status changes with repeated words and phrases with uncoordinated repetitive actions, this has improved since withholding her altering medications, which we will continue to do for the time being. The patient remained afebrile overnight, and if she continues to do so and look well she will likely be able to DC tomorrow. Possible Urinary tract infection, present on admission, active. - Patient transferred from [facility] due to concern that the patient may become septic. Stable at time of arrival. Urine culture from [facility] confirmed as VRE - 1 dose of ceftriaxone given at [facility]. Initially changed to Cefepime per ID recommendations, now transitioned to Linezolid due to concerns to cover VRE - Urine growing VRE - Per ID recommendations Linezolid is the only viable drug in her case as she has essentially no IV access and it is the only PO drug which her infection has shown sensitivity towards Sepsis, POA, acute. Resolved - Patient with fevers, hypotension, tachycardia, and tachypnea - BP has stabilized without pressors - Abx as above - Will continue with cautious use of IVF given underlying cardiac status - Source likely UTI - CT chest/abd/pelvis on 04/08/17 unrevealing. - Stool toxin positive for C. diff, no profuse diarrhea, continue PO Vanco - As above urine Micro positive for VRE, 1 blood culture growing the same with other cultures here and at [facility] negative - Per ID patient must be afebrile for 48 hrs prior to DC, likely DC tomorrow unless patient spikes another fever Encephalopathy, not POA. acute. Improved - Patient was manifesting new behavior with repeated words and phrases - Brain MRI normal - EEG pending - Will consider neurology consults pending results of EEG - Etiology uncertain as other infectious parameters improving - Patient has improved since Seroquel and Suboxone was discontinued, will continue to hold Seroquel Acute kidney injury, not present on admission - At [facility] was found to be 1.37. - Avoid nephrotoxic medications. - Continue with cautious IVF - Difficult to draw labs this morning. Followup repeat labs Acute Lactic Acidosis, present on admission, Resolved - Minimally elevated lactic acid 2.3 at [facility]. - Repeat lactic trending back to normal - Fluids as above. Fever and malaise, present on admission, Improved - Repeat daily blood cultures while spiking fevers - Followup pending cultures. 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 - Received 1 dose of Dalbavancin on 04/01/2017. - Patient was to schedule appointment with Cardiothoracic Surgeon Dr. Benji Dixon at [facility] to discuss possible valve replacement. - Repeat ECHO with results as above, indicative of worsening right sided heart failure Chronic stable conditions Polysubstance abuse - Patient denies IV drug since discharge on 04/01/2017. - Urine drug screen at [facility] was positive for benzodiazepines. - Hepatitis C and HIV negative at last admission. Opioid dependence - Suboxone 16 mg daily has been held Depression and anxiety - Quetiapine 25 mg nightly has been held - Will consider psych consult to clarify what options may be available to us given necessity for Linezolid Seizure disorder - Continue home topiramate 100 mg twice a day History of recurrent soft tissue infections - No physical exam findings to suggest current infection. Asthma - Albuterol when necessary. Insomnia - Continue ropinirole 1 mg nightly. Chronic pain - Gabapentin 600 mg twice a day Disposition: Anticipated DC tomorrow should she remain afebrile, will transition back to [facility] upon DC. . Pain Evaluation: Adequate Pain Control GI Prophylaxis: Not indicated VTE Prophylaxis: Sub-Q Enoxaparin Resuscitation Status: CPR: Attempt Resuscitation Time spent 20 minutes Attending Statement Patient has been seen and examined by myself with biomedical electronics technician and agree with above history, physical, assessment and plan. Cricket Hidalgo DO Apr 15, 2017 11:49 Ese Amanda MD Apr 15, 2017 15:17
[2017-04-15 17:12] VITALS: BP 96/64; PULSE 82; RESP 18; O2SAT 98
--- NOTE | 2017-04-15 19:12 | NUR ---
Afebrile pt afebrile through the day, See vitals. Report given to oncoming RN.
[2017-04-15 21:00] VITALS: BP 127/65; RESP 18; O2SAT 95
[2017-04-15] MEDS: LORazepam 1 mg Tablet PO PRN (21:01)
--- NOTE | 2017-04-16 01:30 | NUR ---
patient support patient shared with rn about her daughter. her hopes of being with her daughter for halloween. and her thankfulness that her mom is able to help with raising her daughter. rn listened, gave supportive care.
[2017-04-16 01:45] VITALS: BP 114/74; PULSE 74; RESP 18; O2SAT 97
[2017-04-16] MEDS: Vancomycin 125 mg Oral Capsule PO SCH ×2 (01:45→08:07)
--- NOTE | 2017-04-16 05:48 | NUR ---
AFEBRILE Pt was afebrile for noc shift.
--- NOTE | 2017-04-16 06:20 | PROG NOTE ---
[address] [address] PROGRESS NOTE PATIENT: RAJANI ALSTON : 1990 MR#: [id number] ADMIT: 04/07/2017 JOB ID: [id number] DATE: 04/15/2017 REASON FOR FOLLOWUP: VRE bacteremia secondary to complicated urinary tract infection. INTERVAL HISTORY: The patient reports no fevers, chills, or sweats overnight. No significant cough, GI complaint, flank pain, or dysuria. She is looking forward to being discharged in the near future. PHYSICAL EXAMINATION: Reveals a woman who has now been afebrile for 36 hours. Current temp 36.8. I recall that she was admitted with high spiking fevers due to her VRE bacteremia, which persisted for a couple days, then resolved, only to mysteriously recur three days later. They are now once again gone for 36 hours. Pulse 88, respiratory rate 20, blood pressure 96/66. She is saturating well on room air. Mental status is clear. Oral cavity negative. Lungs: Clear. Cardiac tones without change. No flank pain. No abdominal pain. No skin reaction. LABORATORY DATA: Labs include white count just finally normalized today, 9400. Normal diff. Creatinine 0.68. LFTs normal. Procalcitonin is bouncing around, and in fact, went back up to 1.15 following her temperature spike on the , which is of interest. Micro: We have negative followup blood cultures from the . I recall that we did have urine and blood that grew VRE from the . RADIOGRAPHIC DATA: Chest x-ray, done yesterday, shows bilateral patchy infiltrates and opacities. IMPRESSION: This is an extraordinarily complicated young woman who has had methicillin-sensitive Staphylococcus aureus tricuspid valve endocarditis with septic pulmonary emboli twice in the past nine months. After her most recent discharge in early March, she came back with high fevers, and had positive blood in urine for vancomycin-resistant enterococci. We believe this to be of urinary origin, rather than an additional episode of endocarditis. Her course this time has been complicated by C. difficile colitis. At this point, she is much improved. The only confusing part for me is the fevers on the , which seem to come out of the blue. It is very unusual for people with complicated UTIs and bacteremia to be completely well on appropriate antibiotics for three days, and then suddenly spike, and I wonder what caused that surprising development. It has now been 36 hours since she spiked, and she looks completely well once again. I always worry, with patient's with a history of IV drug use, about manipulation of the line, which has been a problem for this patient during prior admissions, but she denies it on this occasion. RECOMMENDATIONS: 1. We will continue with oral linezolid and p.o. vancomycin. 2. If her current blood cultures remain negative, and she has no more fever spikes, I think she can be safely discharged as early as tomorrow. I would send her out on the linezolid, to complete a two week course, which would take us through April 25. Additionally, I would continue oral vancomycin for the same duration, on 25 mg 4 times a day through April 25. 3. I once again discussed with the patient the importance of avoiding even one additional injection of drugs, which would likely precipitate additional endocarditis and her . 4. She has followup scheduled with CT Surgery at [facility] in [place], and as long as she maintains sobriety, with respect to IV drugs, she may, in fact, be a candidate for a valve replacement or a tricuspid ring as necessary. 5. ID will sign off at this time, as I do not see any additional issues or questions, but please do not hesitate to call me if there are additional problems.
[2017-04-16 07:43] LABS: BASOPHILS % (AUTO) 0.3 % (0-3); EOSINOPHILS % (AUTO) 1.4 % (0-5); MONOCYTES % (AUTO) 5.8 % (4-12); Mean Corpuscular Hemoglobin 31.1 pg (27.0-35.0); Mean Corpuscular Volume 98.5 fL (81-100); NEUTROPHILS % (AUTO) 44.2 % (40-74)
[2017-04-16 07:58] VITALS: BP 118/89; PULSE 72; RESP 20; O2SAT 97
[2017-04-16 08:05] LABS: INR 1.42 ratio
[2017-04-16] MEDS: Buprenorphine 2 mg SL Tablet SL SCH (08:08)
[2017-04-16 08:31] LABS: Magnesium 1.8 mg/dL (1.6-2.6); Phosphorus 5.1 mg/dL (2.5-4.9)
--- NOTE | 2017-04-16 10:44 | PCM.DIMED ---
Discharge Instructions Date of Service Apr 16, 2017 Dates of Hospitalization Apr 07, 2017 at 00:39 Discharge Diagnosis Discharge Diagnosis -Urinary tract infection with VRE, acute, present on admission -Sepsis, acute, present on admission, resolved - C. difficile colitis, acute, present on admission -Acute toxic encephalopathy secondary to medications, not present on admission, resolved -Acute kidney injury, not present on admission, resolved -Acute lactic acidosis, present on admission, resolved -Recent MSSA tricuspid valve endocarditis with septic pulmonary emboli and completed 6 weeks of IV antibiotics on 04/01/2017 -History of IV heroin and meth use Diet Discharge Diet: Heart Healthy Activity Discharge Activity: Other (progress as tolerated) Call your provider Call your provider for: Fever or Chills, Shortness of breath, Bleeding, Chest pain, Vomitting, Excessive diarrhea, Weakness (unilateral) Patient Instructions Follow-up plan Patient is also to follow up with [facility] Follow-up Provider: Taco Flores MD Follow-up with PCP in: Other (4-5 days, sooner if problems) Ese Amanda MD Apr 16, 2017 10:43
[2017-04-16] MEDS ORDERED: LINE600T2 PO (10:48)
[2017-04-16] MEDS ORDERED: APIX5TAB PO (10:48)
[2017-04-16] MEDS ORDERED: VANC125C3 PO (10:48)
--- NOTE | 2017-04-16 11:09 | PCM.DC.MED ---
Discharge Summary Date of Service Apr 16, 2017 Dates of Hospitalization Date of Hospital Admission Apr 07, 2017 at 00:39 Date of Discharge: Apr 16, 2017 Providers: Admitting Physician: Rick Catalan MD Primary Care Physician: Taco Flores MD Attending Physician: Ese Amanda MD Diagnosis at Time of Discharge Diagnosis at Time of Discharge -Urinary tract infection with VRE, acute, present on admission -Sepsis, acute, present on admission, resolved - C. 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 Dictated by: Delon Pelayo [facility] Interpreted: Angy Chang MD on 04/07/2017 at 12: 26 Approved by: Angy Chang M.D. on 04/07/2017 at 16:52 . Date of Service: 04/08/17 1505 PROCEDURE: CT CHEST, ABDOMEN AND PELVIS WTIH CONTRAST ([id number]) IMPRESSION: 1. Markedly improved appearance of previous pulmonary cavitary lesions. 2. Interval development of mild free fluid within the abdomen and pelvis. No visualized abscess. 3. Low attenuation appearance is present within the gallbladder fossa suggestive of fluid. However, superimposed gallbladder wall thickening cannot be excluded. If concern exists for gallbladder pathology, ultrasound is recommended for additional evaluation. 4. Persistent, slightly edematous appearance of the right kidney with normal contrast enhancement. As previously suggested, infection/inflammation cannot be excluded. Dictated by: Angy Chang M.D. on 04/08/2017 at 18:01 Approved by: Angy Chang M.D. on 04/08/2017 at 18:10 MRI STROKE PROTOCOL IMPRESSION: BRAIN MRI: 1. No acute intracranial abnormality. Specifically, no evidence of intracranial abscess. BRAIN MR ANGIOGRAM: 1. No focal stenosis or occlusion of the central intracranial arteries. NECK MR ANGIOGRAM: 1. No focal stenosis or occlusion of the head and neck arteries. 2. Bilateral pleural effusions partially visualized as seen on the recent CT of the chest abdomen and pelvis. The estimate of stenosis included in the report of the imaging study was calculated using the NASCET method Dictated by: Sulaiman Haines M.D. on 04/10/2017 at 14:37 PROCEDURE: US ABDOMEN INDICATIONS: abd pain TECHNIQUE: Real-time scanning was performed of the abdominal and retroperitoneal organs, with image documentation. COMPARISON: [facility], CT, CT CHEST ABD PELVIS W CON, 04/08/2017, 17:33. FINDINGS: Liver length: 16.0 cm Gallbladder Wall Thickness: 9.20 mm CBD: 3.20 mm Spleen length: 14.41 cm Right kidney length: 5.85 cm Left kidney length: 12.88 cm Aorta(Proximal): 1.77 cm Aorta(Mid): 1.32 cm Aorta(Distal): 1.55 cm Liver: Liver is diffusely increased in echogenicity. No focal hepatic abnormalities identified. Normal hepatic size. Gallbladder: No gallstones. Gallbladder wall is thickened and edematous measuring 9 mm. Gallbladder wall cyst arises from the fundus of the gallbladder measuring 2.0 x 2.0 x 1.8 cm. Biliary ducts: Intrahepatic bile ducts are non-dilated. Extrahepatic bile duct caliber is normal. Normal is 6-7 mm or less in diameter, or 10 mm or less post-cholecystectomy. Pancreas: Visualized portions of the pancreas are sonographically normal. Spleen: Spleen is normal in size and homogeneous in echotexture. Kidneys: Kidneys are normal in size and echotexture. No hydronephrosis or nephrolithiasis. No solid masses. Aorta: Visualized aorta is normal in caliber at less than 3 cm. Iliacs: Not visualized. IVC: Intrahepatic inferior vena cava is patent. Miscellaneous: Bilateral pleural effusions are present and there is mild amount of ascites throughout the abdomen and pelvis. IMPRESSION: 1. Increased hepatic echogenicity noted likely related to fatty infiltration of the liver but other sources of hepatocellular disease cannot be excluded. Recommend clinical correlation. 2. Thickened edematous gallbladder wall and cholecystitis cannot be excluded. Correlate clinically. 3. Gallbladder wall cyst measuring 2.0 cm. 4. Small pleural effusions and mild ascites. Dictated by: Delon COBIANA Interpreted: Angy Chang MD on 04/13/2017 at 9: 49 Approved by: Angy Chang M.D. on 04/13/2017 at 20:55 . Cardiac Echo Impression Interpretation Summary 1. Dilated right ventricle with normal systolic function. The estimated CVP is elevated at 15 mm Hg 2. There is a mass/vegetation appreciated on the tricuspid valve. There is severe associated tricuspid regurgitation 3. Small left ventricular cavity size with grossly normal left ventricular systolic function Compared to the previous study, the estimated right atrial pressure is now elevated. The RV may be more dilated Reading Physician:12:49 PM . 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 Patient was recently hospitalized from 02/17/2017 - 04/01/2017 for treatment of endocarditis. The day of discharge she received 1 dose of Dalbavancin. Since discharge patient had been feeling well until the last 36 hours. She states that over the last 36 hours she has felt progressively weak and achy. She said some difficulty with urination but no dysuria or hematuria. She noted feeling feverish and chilled early this afternoon and began having difficulty walking due to significant weakness. At this time she called her sister who brought her to [facility]. Patient denies IV drug use since discharge. She states she has been compliant with her medications. She denies any sick contacts. She does note that she has stayed fairly active and maybe has not gotten enough rest after her prolonged hospitalization. She denies shortness of breath, chest pain, abdominal pain, nausea, vomiting, headache, rashes, diarrhea, or decreased appetite. On presentation to [facility] initial vitals were temperature 38.9 , blood pressure 90/59, heart rate of 115, respiratory rate 22 satting 92% on room air. Initial labs done at [facility] showed a creatinine of 1.37, BUN of 20, white blood cell count of 19.9 with 78% neutrophils, lactic acid of 2.3. Urinalysis showed leukocyte esterase along with 10-14 white blood cells. Blood cultures 2 were drawn. Urine drug screen was positive for benzodiazepine alone and the patient takes lorazepam when necessary. There was concern that the patient was appearing septic and subsequently was transferred. Prior to transfer she received 1 L NS along with a dose of ceftriaxone. Upon arrival at [facility] patient's vitals were temperature 36.8, pulse 84, respiratory rate 18 satting 98% on room air, and blood pressure 99/66. Repeat labs were attempted to be drawn but the street engineer was unsuccessful and patient refuses additional attempts until shift change when there is a new street engineer. Patient at this time appears stable. Hospital Course 26-year-old female with past medical history significant for IV heroin and meth use causing MSSA tricuspid valve endocarditis with septic pulmonary emboli with recent completion of 6 weeks of antibiotic treatment on 04/01/2017 who presented to [facility] with fever and generalized malaise with reports of a UTI and sepsis. Patient did manifest troubling mental status changes with repeated words and phrases with uncoordinated repetitive actions, this has improved since withholding her altering medications, which we will continue to do for the time being. The patient remained afebrile overnight, and if she continues to do so and look well she will likely be able to DC tomorrow. Possible Urinary tract infection, present on admission, active. - Patient transferred from [facility] due to concern that the patient may become septic. Stable at time of arrival. Urine culture from [facility] confirmed as VRE - 1 dose of ceftriaxone given at [facility]. Initially changed to Cefepime per ID recommendations, now transitioned to Linezolid due to concerns to cover VRE - Urine growing VRE - Per ID recommendations Linezolid is the only viable drug in her case as she has essentially no IV access and it is the only PO drug which her infection has shown sensitivity towards -Patient will be discharged po linezolid so she will be given a prescription for 10 days Sepsis, POA, acute. Resolved - Patient with fevers, hypotension, tachycardia, and tachypnea - BP has stabilized without pressors - Abx as above - Will continue with cautious use of IVF given underlying cardiac status - Source likely UTI - CT chest/abd/pelvis on 04/08/17 unrevealing. - Stool toxin positive for C. diff, no profuse diarrhea, continue PO Vanco - As above urine Micro positive for VRE, 1 blood culture growing the same with other cultures here and at [facility] negative - Per ID patient must be afebrile for 48 hrs prior to DC, which she has been and hence will be discharged to home on April 16. Encephalopathy, not POA. acute. Resolved - Patient was manifesting new behavior with repeated words and phrases - Brain MRI normal - Patient has improved since Seroquel and Suboxone was discontinued, Acute kidney injury, not present on admission, resolved - At [facility] was found to be 1.37. - Avoid nephrotoxic medications. -Patient improved with IV fluid hydration Acute Lactic Acidosis, present on admission, Resolved - Minimally elevated lactic acid 2.[address] [facility]. - Repeat lactic trending back to normal - Fluids as above. Fever and malaise, present on admission, Improved - Repeat daily blood cultures while spiking fevers - Followup pending cultures. 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 - Received 1 dose of Dalbavancin on 04/01/2017. - Patient was to schedule appointment with Cardiothoracic Surgeon Dr. Benji Dixon at [facility] to discuss possible valve replacement. - Repeat ECHO with results as above, indicative of worsening right sided heart failure -After discharge patient is to follow-up with Dr. Tai at [facility] for possible valve replacement Chronic stable conditions Polysubstance abuse - Patient denies IV drug since discharge on 04/01/2017. - Urine drug screen at [facility] was positive for benzodiazepines. - Hepatitis C and HIV negative at last admission. Opioid dependence - Suboxone 16 mg daily has been held Depression and anxiety - Quetiapine 25 mg nightly has been held - Will consider psych consult to clarify what options may be available to us given necessity for Linezolid Seizure disorder - Continue home topiramate 100 mg twice a day History of recurrent soft tissue infections - No physical exam findings to suggest current infection. Asthma - Albuterol when necessary. Insomnia - Continue ropinirole 1 mg nightly. Chronic pain - Gabapentin 600 mg twice a day Disposition: Home . Exam Vital Signs (Last) Date Time Temp Pulse Resp B/P Pulse Ox O2 Delivery O2 Flow Rate FiO2 04/16/17 07:58 37.0 72 20 118/89 97 Room Air 9/29/17 17:12 Exam Constitutional: Young female in no acute distress Head: Normocephalic atraumatic Chest: Clear to auscultation Cor: Regular rate and rhythm S1-S2 without murmur Abdomen: Soft nontender bowel sounds present Extremities: No pedal edema Psych: Mood and affect appropriate Skin: No rashes Neuro: Alert and oriented 3, motor strength is intact bilaterally Test 04/07/17 23:44 04/08/17 11:20 04/09/17 10:30 04/09/17 16:00 Urine Color Yellow (YELLOW) Urine Appearance Slightly cloudy Urine pH 6.0 (5.0-8.0) Urine Specific [place] 1.020 (1.003-1.035) Urine Protein 100mg/dL (NEG,TRACE) Urine Glucose (UA) Negativemg/dL (NEGATIVE) Urine Ketones Negativemg/dL (NEGATIVE) Urine Occult Blood Large (NEGATIVE) Urine Nitrite Negative (NEGATIVE) Urine Bilirubin Negative (NEGATIVE) Urine Urobilinogen Normalmg/dL (NORMAL) Urine Leukocyte Esterase Negative (NEGATIVE) Urine RBC 3-10/hpf (0-2) Urine WBC 6-10/hpf (0-5) Urine Epithelial Cells Occasional/hpf (NONE-MOD) Urine Crystals Amorphous urates (NONE Urine Bacteria Few/hpf (NONE-FEW) Urine Hyaline Casts None/lpf (NONE) Urine Granular Casts 5-20 (NONE SEEN) Urine Waxy Casts None seen (NONE SEEN) Urine Red Blood Cell Casts None seen (NONE SEEN) Urine White Blood Cell Casts None seen (NONE SEEN) Urine Mucus Present (None Seen) Urine Trichomonas None seen (NONE SEEN) Urine Yeast None (NONE SEEN) Urinalysis Comment None Urine Culture Reflexed Indicated Urine HCG, Qualitative Negative (Negative) Lactic Acid Level 1.2mmol/L (0.4-2.0) Total Creatine Kinase 126U/L (21-215) Haptoglobin 157mg/dL (34-200) Rheumatoid Factor <10.0IU/mL (0.0-13.9) Complement C3 101mg/dL (82-167) Complement C4 19mg/dL (14-44) Streptozyme 36.0IU/mL (0.0-200.0) Test 04/12/17 09:30 04/16/17 07:18 Ammonia 17ug/dL (18-53) White Blood Count 6.9th/mm3 (3.8-10.1) Red Blood Count 3.41mil/mm3 (3.90-5.20) Hemoglobin 10.6g/dL (12.0-15.6) Hematocrit 33.6% (35.0-46.0) Mean Corpuscular Volume 98.5fL (81-100) Mean Corpuscular Hemoglobin 31.1pg (27.0-35.0) Mean Corpuscular Hemoglobin Concent 31.5% (32.0-37.0) Red Cell Distribution Width 18.8% (12.3-15.4) Platelet Count ximena/L (150-400) Neutrophils (%) (Auto) 44.2% (40-74) Lymphocytes (%) (Auto) 48.0% (14-46) Monocytes (%) (Auto) 5.8% (4-12) Eosinophils (%) (Auto) 1.4% (0-5) Basophils (%) (Auto) 0.3% (0-3) Prothrombin Time 15.3sec (8.1-12.5) Prothromb Time International Ratio 1.42ratio Sodium Level 141mEq/L (134-144) Potassium Level 4.0mEq/L (3.5-5.2) Chloride Level 106mEq/L (97-108) Carbon Dioxide Level 20mmol/L (18-29) Blood Urea Nitrogen 5mg/dL (6-20) Creatinine 0.61mg/dL (0.57-1.00) Estimat Glomerular Filtration Rate 173mL/min (>59) Glucose Level 90mg/dL (60-99) Calcium Level 8.8mg/dL (8.5-10.1) Phosphorus Level 5.1mg/dL (2.5-4.9) Magnesium Level 1.8mg/dL (1.6-2.6) Total Bilirubin 0.3mg/dL (0.0-1.2) Aspartate Amino Transf (AST/SGOT) 12U/L (0-50) Alanine Aminotransferase (ALT/SGPT) 16U/L (0-32) Alkaline Phosphatase 54U/L (25-150) Total Protein 6.5g/dL (6.4-8.4) Albumin 2.8g/dL (3.4-5.0) Procalcitonin 0.50ng/mL (0.00-0.08) Microbiology Results Blood cultures 2 drawn at [facility] on 04/06/2017. Single blood culture and urine cultures growing enterococcus suspicious for VRE C.diff toxin demonstrated in stool. . Discharge Medications Discharge Medications Apixaban (Eliquis) 5 Mg Tablet 5 MG PO BID Prescribed by: ESE AMANDA MD Gabapentin (Neurontin) 300 Mg Capsule 600 MG PO BID Prescribed by: JAYDEN PROCTOR MD Hydroxyzine Pamoate (HydrOXYzine Pamoate) 25 Mg Capsule 50 MG PO HS Prescribed by: JAYDEN PROCTOR MD Linezolid (Zyvox) 600 Mg Tablet 600 MG PO BID Prescribed by: ESE AMANDA MD Quetiapine Fumarate (Quetiapine Fumarate) 25 Mg Tablet 25 MG PO HS Prescribed by: JAYDEN PROCTOR MD Ropinirole (Ropinirole) 1 Mg Tablet 1 MG PO HS (Reported) Ropinirole (Requip) 1 Mg Tablet 1 MG PO HS Prescribed by: ESE AMANDA MD Topiramate (Topiramate) 100 Mg Tablet 100 MG PO BID Prescribed by: JAYDEN PROCTOR MD Vancomycin (Vancomycin) 125 Mg Capsule 125 MG PO Q6 Prescribed by: ESE AMANDA MD As needed Lorazepam (Ativan) 1 Mg Tablet 1 MG PO Q4H PRN PRN anxiety Prescribed by: JAYDEN PROCTOR MD oxyCODONE (oxyCODONE) 5 Mg Tablet 5 MG PO Q6H PRN PRN For Moderate Pain Prescribed by: JAYDEN PROCTOR MD Followup Plan Follow-up plan Patient is also to follow up with [facility] Discharge Diet: Heart Healthy Discharge Activity: Other Follow-up Provider: Taco Flores MD Follow-up with PCP in: Other Time spent 60 minutes copies to: Taco Flores MD, Cheryl A MD Apr 16, 2017 11:09
[2017-04-16] MEDS: LORazepam 1 mg Tablet PO PRN (11:11)
[2017-04-16] MEDS ORDERED: ROPI1TAB2 PO (11:13)
--- NOTE | 2017-04-16 12:05 | NUR ---
Discharge of patient Reviewed discharge instructions with patient. Patient verbalized understanding, asking for prescriptions for her home meds, Dr Amanda made aware, new prescriptions printed out. Patient discharged by walking out with prescriptions and instructions. Patient left hospital with mother to home self care.
--- NOTE | 2017-04-16 13:04 | NUR ---
Social Work Note: Discharge Data& Assessment: Per MD in multidisciplinary rounds, pt is medially ready for discharge. Darlene Miller is a 26 year old female admitted on 04/07/2017 for sepsis. Per MD pt is medically improved and ready to discharge. Pt has been fever free for 48 hours per ID recommendations. Pt is ambulating at baseline. No other MD orders identified. STRATEGY INTERN met with pt and pt mother at bedside to confirm discharge plan and assess for any unmet needs. Pt mother transporting pt home today. Pt only request was for a release of information form in order for her mother to obtain her physical medical records for court purposes, this form was provided. Pt and pt mother denies any other needs. All updated and agreeable to plan. Plan: Per pt is medically ready to discharge home via POV. No other MD orders or pt needs identified. BINA Briscoe
== END 2017-04-16 12:05 | disposition home or self-care (01) | DRG 871 ==
LOC: PCC 04-07 00:39
PROVIDERS: ADMIT Hospitalist; ATTEND Hospitalist
PROC: 4A033R1 Measurement of Arterial Saturation, Peripheral, Percutaneous Approach (ICD-10-PCS; principal; 2017-04-12)
DX: A41.9 Sepsis, unspecified organism (principal); E43 Unspecified severe protein-calorie malnutrition; I33.0 Acute and subacute infective endocarditis; G92 Toxic encephalopathy; N10 Acute pyelonephritis; N17.9 Acute kidney failure, unspecified; E87.2 Acidosis; F11.20 Opioid dependence, uncomplicated; A04.7 Enterocolitis due to Clostridium difficile; Z86.19 Personal history of other infectious and parasitic diseases; Z87.898 Personal history of other specified conditions; F32.9 Major depressive disorder, single episode, unspecified; F41.9 Anxiety disorder, unspecified; G40.909 Epilepsy, unspecified, not intractable, without status epilepticus; J45.909 Unspecified asthma, uncomplicated; G47.00 Insomnia, unspecified; G89.29 Other chronic pain; Z88.1 Allergy status to other antibiotic agents; E86.0 Dehydration; B95.2 Enterococcus as the cause of diseases classified elsewhere; Z86.718 Personal history of other venous thrombosis and embolism; Z68.30 Body mass index [BMI] 30.0-30.9, adult; Z16.21 Resistance to vancomycin; I36.1 Nonrheumatic tricuspid (valve) insufficiency; T43.595A Adverse effect of other antipsychotics and neuroleptics, initial encounter; T40.4X5A Adverse effect of other synthetic narcotics, initial encounter